=== PATIENT | female | born 1985 | race Caucasian/White ===

== ENCOUNTER 2020-08-26 08:33 | Emergency (ER) | payer OTHER, SELFPAY ==
--- NOTE | 2020-08-26 | XR_ITS ---
EXAMINATION: CR X-RAY HAND WRIST LEFT CLINICAL INFORMATION: Left hand and wrist pain status post fall. COMPARISON: None TECHNIQUE: 4 views of the left hand and wrist were obtained. FINDINGS: There is no acute fracture or dislocation. The carpal bones are normally aligned. The distal radius and ulna are intact. The joint spaces are unremarkable. The soft tissues are unremarkable. IMPRESSION: No acute fracture or significant degenerative changes.
[2020-08-26 09:33] VITALS: BP 121/64; PULSE 87; RESP 16; TEMP 36.5; O2SAT 100; BMI 23.3
--- NOTE | 2020-08-26 09:51 | ED.EXTPRO ---
HPI - Extremity Problem General Chief complaint: Extremity Injury, Upper Stated complaint: fell hurt left wrist Time Seen by Provider: 08/26/20 09:47 Source: patient Mode of arrival: ambulatory Limitations: no limitations History of Present Illness MD Complaint: extremity pain Onset (ago): minute(s) Pain Consistency: constant Location: left Quality: constant Radiation: none Relieving factors: nothing Exacerbating factors: nothing Associated symptoms: denies other symptoms Related Data Home Medications Medication Instructions Recorded Confirmed No Known Home Meds 08/26/20 08/26/20 Allergies Allergy/AdvReac Type Severity Reaction Status Date / Time No Known Allergies Allergy Unknown NOT Verified 08/26/20 09:01 APPLICABLE Review of Systems Review of Systems: Yes all other systems are reviewed and are negative Constitutional: Constitutional: Reports as per HPI, Denies chills and Denies fever(s) Eyes: Eyes: Denies change in vision ENT: Denies nasal congestion and Denies nasal discharge Cardiovascular: Cardiovascular: Denies acrocyanosis, Denies chest pain and Denies dyspnea Respiratory: Respiratory: Denies cough and Denies dyspnea Gastrointestinal: Gastrointestinal: Denies abdominal pain, Denies nausea and Denies vomiting Genitourinary: Genitourinary: Reports no additional female genitourinary complaints Musculoskeletal: Musculoskeletal: Reports arthralgias, Reports joint swelling, Reports limited range of motion, Denies muscle weakness, Denies numbness and Denies tingling Integumentary/Breasts: Skin/Breast: Denies rash Neurologic: Denies focal weakness, Denies numbness and Denies tingling Psychiatric: Psychiatric: Reports no additional psychiatric complaints [facility] Past Medical History Attestation statement: The following information was validated with the patient. Source: obtained from family Medical History delivery delivered Cholecystectomy planned No known health problems Social History Social History Alcohol intake: never Smoking Status: Current every day smoker Use of substances other than those prescribed or required for medical reasons: No Advance Directives: No Advance Directives Information Provided: Yes Physical Exam Vital Signs and I&O and Narrative: Vital Signs and I&O: Vital Signs Temp 97.7 F 08/26/20 09:33 Pulse 87 08/26/20 09:33 Resp 16 08/26/20 09:33 BP 121/64 08/26/20 09:33 Pulse Ox 100 08/26/20 09:33 Intake & Output 08/25/20 08/26/20 08/26/20 18:59 06:59 18:59 Weight 63.503 kg Body Mass Index 23.3 Const: General: healthy appearing, comfortable and no acute distress Orientation/consciousness: patient oriented x3 HENMT: Head: Yes normal to inspection Eyes: General: appearance normal, both eyes and all related structures Pupils: Equal, round and reactive pupils present Neck: Neck: Yes normal visual inspection Chest: Chest palpation & inspection: normal inspection of the chest Resp: Effort & Inspection: normal respiratory effort Auscultation: clear to auscultation bilaterally Cardio: Palpation: normal PMI Rate: regular rate Rhythm: regular rhythm Peripheral pulses: Peripheral pulses 2+ throughout GI: Inspection: Yes normal to inspection Palpation (GI): Soft to palpation and nontender Back/Spine/Pelvis: Thoracic/Lumbar Spine: thoracic and lumbar spine normal to inspection Skin: General skin exam: no rashes or lesions noted Neuro: General: patient oriented x3, Normal light touch and pain sensation and normal sensation to monofilament Cranial nerves: Yes Equal, round and reactive pupils present Gait exam (Neuro): Normal gait present Motor exam (neuro): 5/5 motor strength present throughout Sensory Exam: Normal double simultaneous stimulation for sensation Extrem: General: Yes normal to inspection Left upper extremity: normal to inspection, full ROM (pain with extension of the left wrist, no obvious swelling or deformity.), normal capillary refill and wrist (NV intact distally ); no edema and joint enlargement noted MDM - Extremity (Nontraumatic) MDM Narrative Medical decision making narrative: x-rays negative. Likely sprain. Placed in wrist splint by nursing. Reviewed worrisome signs/symptoms with the patient and when to return to ED. comfortable with discharge home. Imaging Data wrist x-ray: Attestation: I personally reviewed and interpreted this imaging study as follows: My impression: unremarkable. no acute fracture Radiologist's impression: EXAMINATION: CR X-RAY HAND WRIST LEFT CLINICAL INFORMATION: Left hand and wrist pain status post fall. COMPARISON: None TECHNIQUE: 4 views of the left hand and wrist were obtained. FINDINGS: There is no acute fracture or dislocation. The carpal bones are normally aligned. The distal radius and ulna are intact. The joint spaces are unremarkable. The soft tissues are unremarkable. IMPRESSION: No acute fracture or significant degenerative changes. Discharge Plan Discharge Clinical Impression: Sprain and strain of wrist Patient Disposition: Home, Self-Care Instructions: Wrist Sprain (ED) Additional Instructions: Use splint for comfort Ice to the area elevation Limit use of wrist Motrin or Tylenol for pain as needed Prescriptions: No Action No Known Home Meds RF: 0 Stand Alone Forms: Work/School Release Interventions: ED Discharge Assessment Last Done: 08/26/20 11:30 Discharge Date/Time: 08/26/20 11:31
--- NOTE | 2020-08-26 11:32 | PC.NURSE ---
velcro wrist splint applied to left wrist
== END 2020-08-26 11:31 | disposition home or self-care (01) ==
PROVIDERS: Emergency Provider Internal Medicine
DX: S63.502A Unspecified sprain of left wrist, initial encounter (principal); S66.912A Strain of unspecified muscle, fascia and tendon at wrist and hand level, left hand, initial encounter; M25.532 Pain in left wrist; W18.30XA Fall on same level, unspecified, initial encounter; Y93.01 Activity, walking, marching and hiking; Y92.9 Unspecified place or not applicable; F17.200 Nicotine dependence, unspecified, uncomplicated; Z71.6 Tobacco abuse counseling
CPT/HCPCS: 73110; 73130; 99283; 99284

== ENCOUNTER 2021-03-16 11:16 | Emergency (ER) | payer OTHER, SELFPAY ==
--- NOTE | 2021-03-16 | ECG_ITS ---
Test Reason : HP Blood Pressure : / mmHG Vent. Rate : 079 BPM Atrial Rate : 079 BPM P-R Int : 130 ms QRS Dur : 088 ms QT Int : 336 ms P-R-T Axes : 057 043 030 degrees QTc Int : 385 ms Sinus rhythm with occasional Premature ventricular complexes Otherwise normal ECG When compared with ECG of 15-SEP-2018 20:19, Premature ventricular complexes are now Present Referred By: Tom Lott Electronically Signed By:IAN LAND MD
--- NOTE | ~2021-03-16 | XR_ITS ---
EXAMINATION: XR CHEST CLINICAL INFORMATION: Palpitations COMPARISON: 09/15/2018 TECHNIQUE: Frontal view of the chest was obtained. FINDINGS: No significant abnormality is noted involving the heart, lungs, mediastinum, bony thorax or soft tissues. XR/XR chest 1V IMPRESSION: Unremarkable examination.
[2021-03-16 11:23] VITALS: BP 122/76; PULSE 80; RESP 18; TEMP 36.5; O2SAT 100; BMI 26.5
--- NOTE | 2021-03-16 12:11 | ED_ITS ---
HPI - Arrhythmia/Palpitations General Chief Complaint: Arrhythmia/Palpitations Stated Complaint: palpitations Time Seen by Provider: 03/16/21 12:08 Source: patient Mode of arrival: ambulatory Limitations: no limitations History of Present Illness HPI narrative: 35-year-old female walked into the emergency department for evaluation of palpitation. This is a 35-year-old female who experienced about 10 minutes time of palpitation while she was at work, patient declined chest pain or dizziness, symptoms lasted for about 10 minutes, patient drinks 3 cups of caffeinated coffee daily and she smoke cigarettes which might trigger her symptoms, no other associated symptoms, patient had similar presentation in the past, patient had history of Holter monitor placed few years ago and reportedly nothing major was detected. Related Data Home Medications Medication Instructions Recorded Confirmed No Known Home Meds 08/26/20 08/26/20 Allergies Allergy/AdvReac Type Severity Reaction Status Date / Time No Known Allergies Allergy Unknown NOT Verified 03/16/21 11:27 APPLICABLE Review of Systems Review of Systems: All other systems are reviewed and are negative Constitutional: Reports as per HPI and Reports no additional constitutional complaints Eyes: Reports as per HPI and Reports no additional eye complaints Reports system reviewed and no additional complaints, except as documented Cardiovascular: Reports as per HPI and Reports no additional cardiovascular complaints Respiratory: Reports as per HPI and Reports no additional respiratory complaints Gastrointestinal: Reports as per HPI and Reports no additional gastrointestinal complaints Genitourinary: Reports no additional female genitourinary complaints Musculoskeletal: Reports no additional musculoskeletal complaints Skin/Breast: Reports system reviewed and no additional complaints, except as docu Psychiatric: Reports no additional psychiatric complaints Endocrine: Reports no additional endocrine complaints Hematologic/Lymphatic: Reports no additional hematologic/lymphatic complaints Allergic/Immunologic: Reports no additional allergic/immunologic complaints Reports system reviewed and no additional complaints, except as documented and Reports Abnormal speech present [facility] Past Medical History Medical History delivery delivered Cholecystectomy planned No known health problems Social History Social History Alcohol intake: never Smoking Status: Current every day smoker Use of substances other than those prescribed or required for medical reasons: No Advance Directives: No Advance Directives Information Provided: No Physical Exam Vital Signs: Vital Signs: Last Vital Signs Temp 97.7 F 03/16/21 11:23 Pulse 81 03/16/21 12:15 Resp 18 03/16/21 12:15 BP 110/77 03/16/21 12:15 Pulse Ox 100 03/16/21 12:15 Body Mass Index 26.5 Vital signs have been reviewed as appeared to be correct. Blood pressure normal. Heart rate normal. Respiration rate normal. Temperature normal. Oxygen saturation normal. Appearance: Alert. Oriented X3. No acute distress. Anxious. Head: Normal external exam. Normocephalic. Atraumatic. No Morales signs noted. No raccoon eyes noted Eyes: PERRLA. EOMI. Conjunctiva and sclera normal. Eyelids normal. ENT: TM's Normal. Pharynx normal. Uvula midline. Moist mucous membranes. No trismus noted. No drooling noted. No muffled voice noted. Neck: Normal inspection. Neck supple. FROM. No adenopathy. Thyroid Normal. No meningeal signs. No neck mass noted. CVS: Normal heart rate and rhythm. Heart sound normal. No murmurs noted. Pulses normal throughout. Respiratory: No respiratory distress. Painless inspiration. Breath sounds normal. No wheezes/rales/rhonchi noted. Chest nontender. No accessory muscle usage noted or decreased air movement noted. Abdomen: Soft and nontender. Bowel sounds normal in all 4 quadrants. No distention noted. No organomegaly noted. No visible injury noted. Back: No CVA tenderness. Full range of motion noted. Skin: Skin warm and dry. Normal skin color. Normal skin turgor. No rashes/lesions/lacerations noted. Extremities: No lower extremity edema. Extremities exhibit normal range of motion. Extremities nontender. Neuro: Oriented X 3. No motor deficit. No sensory deficit. Reflexes normal. Course Course Course Narrative: Assessment and plan. 35-year-old female history of anxiety, drink multiple caffeinated coffee a day presented with palpitation, patient had unremarkable workup including TSH/electrolytes/cardiac enzymes, patient had unremarkable EKG and chest x-ray, physical exam more consistent with anxiety related palpitation. Patient was reassured instructed to stay away from caffeinated drinks and smoking cigarettes. MDM - Arrhythmia/Palpitations Lab Data Attestation: I reviewed the patient's lab results. Result diagrams: 03/16/21 12:21 04/25/21 12:21 Labs: Lab Results 03/16/21 03/16/21 03/16/21 Range/Units 12:21 12:21 12:21 WBC 8.5 (4.8-10.8) X10*3/uL RBC 4.19 L (4.20-5.50) X10*6/uL Hgb 13.0 (12.0-16.0) g/dl Hct 40.0 (37-47) % MCV 95.5 (80-98) fL MCH 31.0 (27.0-33.0) pg MCHC 32.5 (31.0-35.0) g/dl RDW 13.1 (11.0-16.0) % Plt Count 215 (160-400) X10*3/uL MPV 10.7 (9.4-12.3) fL Immature Gran % (Auto) 0.4 (0.0-0.4) % Neut % (Auto) 68.8 (45-73) % Lymph % (Auto) 22.4 (20-40) % [place] % (Auto) 7.3 (2-11) % Eos % (Auto) 0.6 (0-4) % Baso % (Auto) 0.5 (0-2) % Lymph # (Auto) 1.9 (1.2-4.9) X10*3/uL [place] # (Auto) 0.6 (0.1-1.2) X10*3/uL Eos # (Auto) 0.1 (0.0-0.4) X10*3/uL Baso # (Auto) 0.0 (0.0-0.2) X10*3/uL Abs Immat Gran (auto) 0.03 (0.00-0.03) X10*3/uL Absolute Neuts (auto) 5.8 (2.0-8.3) X10*3/uL Absolute Nucleated RBC 0.000 (0.0-0.012) X10*3/uL Nucleated RBC % (auto) 0.0 (0.0-0.2) /100WBC Sodium 139 (135-145) mmol/L Potassium 3.9 (3.3-5.1) mmol/L Chloride 104 (96-108) mmol/L Carbon Dioxide 25 (22-29) mmol/L Anion Gap 14 (12-20) BUN 13 (9-16) mg/dL Creatinine 0.77 (0.5-1.4) mg/dL Estim Creat Clear Calc 96.2 Estimated GFR > 60 Random Glucose 91 (60-115) mg/dL Calcium 9.4 (8.4-10.2) mg/dL Magnesium 1.8 (1.6-2.6) mg/dL Troponin I High Sens < 3.5 (<3.5-17.0) ng/L B-Natriuretic Peptide < 10 (<100) pg/mL Lipase 11 (8-78) U/L TSH 1.40 (0.32-4.0) uIU/mL Urine Color Urine Appearance Urine pH (5.0-8.0) Ur Specific [place] (1.005-1.025) Urine Protein (NEG-TRACE) MG/DL Urine Glucose (UA) (NEG) MG/DL Urine Ketones (NEG) MG/DL Urine Blood (NEG) Urine Nitrite (NEG) Ur Leukocyte Esterase (NEG) Urine RBC (0) /HPF Urine WBC (0-4) /HPF Ur Squamous Epith Cells /LPF Urine Bacteria /LPF Urine Mucus /LPF 04// Range/Units 12:21 WBC (4.8-10.8) X10*3/uL RBC (4.20-5.50) X10*6/uL Hgb (12.0-16.0) g/dl Hct (37-47) % MCV (80-98) fL MCH (27.0-33.0) pg MCHC (31.0-35.0) g/dl RDW (11.0-16.0) % Plt Count (160-400) X10*3/uL MPV (9.4-12.3) fL Immature Gran % (Auto) (0.0-0.4) % Neut % (Auto) (45-73) % Lymph % (Auto) (20-40) % [place] % (Auto) (2-11) % Eos % (Auto) (0-4) % Baso % (Auto) (0-2) % Lymph # (Auto) (1.2-4.9) X10*3/uL [place] # (Auto) (0.1-1.2) X10*3/uL Eos # (Auto) (0.0-0.4) X10*3/uL Baso # (Auto) (0.0-0.2) X10*3/uL Abs Immat Gran (auto) (0.00-0.03) X10*3/uL Absolute Neuts (auto) (2.0-8.3) X10*3/uL Absolute Nucleated RBC (0.0-0.012) X10*3/uL Nucleated RBC % (auto) (0.0-0.2) /100WBC Sodium (135-145) mmol/L Potassium (3.3-5.1) mmol/L Chloride (96-108) mmol/L Carbon Dioxide (22-29) mmol/L Anion Gap (12-20) BUN (9-16) mg/dL Creatinine (0.5-1.4) mg/dL Estim Creat Clear Calc Estimated GFR Random Glucose (60-115) mg/dL Calcium (8.4-10.2) mg/dL Magnesium (1.6-2.6) mg/dL Troponin I High Sens (<3.5-17.0) ng/L B-Natriuretic Peptide (<100) pg/mL Lipase (8-78) U/L TSH (0.32-4.0) uIU/mL Urine Color YELLOW Urine Appearance CLOUDY Urine pH 5.5 (5.0-8.0) Ur Specific [place] >= 1.030 H (1.005-1.025) Urine Protein NEG (NEG-TRACE) MG/DL Urine Glucose (UA) NEG (NEG) MG/DL Urine Ketones NEG (NEG) MG/DL Urine Blood 1+ H (NEG) Urine Nitrite NEG (NEG) Ur Leukocyte Esterase NEG (NEG) Urine RBC 1-4 (0) /HPF Urine WBC 0-2 (0-4) /HPF Ur Squamous Epith Cells 2+ /LPF Urine Bacteria NONE /LPF Urine Mucus TRACE /LPF Imaging Data Chest x-ray: Radiologist's impression: Unremarkable examination. ECG Data Interpretation: Normal sinus rhythm at 79 beats per minutes, with occasional ventricular complex, normal intervals, normal axis deviation, no ST-T changes. Discharge Plan Discharge Clinical Impression: Anxiety, Palpitations Patient Disposition: Home, Self-Care Instructions: Anxiety (ED) Prescriptions: No Action No Known Home Meds RF: 0 Referrals: Physician,None [Primary Care Provider] - 2 days Stand Alone Forms: Work/School Release
[2021-03-16 12:15] VITALS: BP 110/77; PULSE 81; RESP 18; O2SAT 100
[2021-03-16 12:27] LABS: Glucose Urine UA NEG (NEG); Leukocyte Esterase Urine NEG (NEG); MANUAL DIFF FLAG NO; Nitrite Urine NEG (NEG); PH 5.5 (5.0-8.0); Specific Gravity - Urine >= 1.030 (1.005-1.025); Urine Blood 1+ (NEG); Urine Ketones NEG (NEG); Urine Protein NEG (NEG-TRACE)
[2021-03-16 12:28] LABS: Appearance Urine CLOUDY; Basophils Percent Auto 0.5 % (0-2); Color Urine YELLOW; Eosinophils Absolute Auto 0.1 X10*3/uL (0.0-0.4); Eosinophils Percent Auto 0.6 % (0-4); Imm Gran Abs Auto 0.03 X10*3/uL (0.00-0.03); Imm Gran Pct Auto 0.4 % (0.0-0.4); Lymphocytes Absolute Auto 1.9 X10*3/uL (1.2-4.9); Lymphocytes Percent Auto 22.4 % (20-40); Mean Corpuscular HGB Conc 32.5 g/dl (31.0-35.0); Mean Corpuscular Volume 95.5 fL (80-98); Mean Platelet Volume 10.7 fL (9.4-12.3); Monocytes Absolute Auto 0.6 X10*3/uL (0.1-1.2); Monocytes Percent Auto 7.3 % (2-11); Neutrophils Absolute Auto 5.8 X10*3/uL (2.0-8.3); Neutrophils Percent Auto 68.8 % (45-73); Platelet Count 215 X10*3/uL (160-400); Red Blood Count 4.19 X10*6/uL (4.20-5.50); Red Cell Distribution Width 13.1 % (11.0-16.0); White Blood Count 8.5 X10*3/uL (4.8-10.8)
[2021-03-16 12:38] LABS: Mucus Urine TRACE /LPF; Squamous Epithelial Cell Urine 2+ /LPF; WBC Urine 0-2 /HPF (0-4)
[2021-03-16 12:59] LABS: Anion Gap 14 (12-20); Blood Urea Nitrogen 13 mg/dL (9-16); Calcium 9.4 mg/dL (8.4-10.2); Carbon Dioxide 25 mmol/L (22-29); Chloride 104 mmol/L (96-108); Creatinine Clr Calc Pharmacy 96.2; Estimated Glomerular Filt Rate > 60; Glucose Random 91 mg/dL (60-115); Lipase 11 U/L (8-78); Magnesium 1.8 mg/dL (1.6-2.6); Potassium 3.9 mmol/L (3.3-5.1); Sodium 139 mmol/L (135-145)
[2021-03-16] MEDS: LORazepam 1 MG TABLET PO (13:02)
[2021-03-16 13:06] LABS: B Type Natriuretic Peptide < 10 pg/mL (<100); Troponin-I High Sensitivity < 3.5 ng/L (<3.5-17.0)
[2021-03-16 13:53] VITALS: BP 102/61; PULSE 82; RESP 18; O2SAT 100
== END 2021-03-16 13:58 | disposition home or self-care (01) ==
PROVIDERS: Emergency Provider Emergency Medicine
DX: F41.9 Anxiety disorder, unspecified (principal); R00.2 Palpitations; F17.200 Nicotine dependence, unspecified, uncomplicated
CPT/HCPCS: 36415; 71045; 80048; 81001; 83690; 83735; 83880; 84443; 84484; 85025; 93005; 99283; 99285

== ENCOUNTER 2021-03-19 06:20 | Emergency (ER) | payer OTHER, SELFPAY ==
--- NOTE | 2021-03-19 | ECG_ITS ---
Test Reason : PALPPITION Blood Pressure : / mmHG Vent. Rate : 081 BPM Atrial Rate : 081 BPM P-R Int : 130 ms QRS Dur : 090 ms QT Int : 342 ms P-R-T Axes : 081 063 044 degrees QTc Int : 397 ms Normal sinus rhythm Normal ECG When compared with ECG of 16-MAR-2021 11:36, Premature ventricular complexes are no longer Present Referred By: Redd Duque Electronically Signed By:IAN LAND MD
[2021-03-19 06:42] VITALS: BP 124/71; PULSE 91; RESP 20; TEMP -17.7; TEMP 0; O2SAT 100; BMI 26.5
--- NOTE | 2021-03-19 07:09 | ED_ITS ---
HPI - General Adult General Chief complaint: Arrhythmia/Palpitations Stated complaint: Palpitations Time Seen by Provider: 03/19/21 06:47 Source: patient Mode of arrival: ambulatory Limitations: no limitations History of Present Illness HPI narrative: 35-year-old female who presents emergency department for evaluation of palpitations. The patient states that she was here in the emergency department on Wednesday ( 4 days prior to evaluation). She describes the sensation as a skipped be with a strong beat following the pause. She states she gets these sensations multiple times an hour. She states that they make her feel very anxious. She denies associated symptoms such as chest pain, lightheadedness, dizziness, diaphoresis, nausea, vomiting or weakness associated with the palpitations. The patient states that she went to [facility] Emergency Department on Wednesday ( 3 days prior to evaluation) with similar complaint had a negative workup except for slight elevation of potassium of 5.6. She states that the elevated potassium is made her very anxious as well. She does have an anxiety disorder but does not take any medications currently for this condition. The patient states that she did have a COVID-19 infection. She states that she completed her COVID-19 vaccination in got her 2nd vaccination in January of 2021. Related Data Previous Rx's Medication Instructions Recorded lorazepam [Ativan] 0.5 mg PO TID PRN #10 tab 03/19/21 Allergies Allergy/AdvReac Type Severity Reaction Status Date / Time No Known Allergies Allergy Unknown NOT Verified 03/16/21 11:27 APPLICABLE Review of Systems Review of Systems: Yes all other systems are reviewed and are negative [facility] Past Medical History [facility] Narrative: past medical history severe anxiety, cholecystectomy 5 years prior. The patient smokes 1 pack of cigarettes per day x5 years. She rarely drinks alcohol. She denies drug use. Medical History delivery delivered Cholecystectomy planned No known health problems Social History Social History Alcohol intake: never Smoking Status: Current every day smoker Advance Directives: No Physical Exam Vital Signs: Vital Signs: Last Vital Signs Temp 0 F L 03/19/21 06:42 Pulse 91 03/19/21 06:42 Resp 20 03/19/21 06:42 BP 124/71 03/19/21 06:42 Pulse Ox 100 03/19/21 06:42 Body Mass Index 26.5 Const: General: cooperative and healthy appearing Orientation/consciousness: oriented to person and oriented to place Limit ations: no limitations HENMT: Head: Yes normal to inspection, Yes normocephalic and Yes atraumatic Ears: external ears normal General nose exam: Normal external nose present Face and sinus: Yes normal facial exam Mouth: Normal oral and palatal mucosa present Throat: Yes posterior oropharynx normal Eyes: Periorbital: periorbital findings normal Eyelids: Yes eyelids normal Conjunctivae: conjunctivae normal Sclerae: sclerae normal Corneas: corneas normal Pupils: Equal, round and reactive pupils present Direct Ophthalmoscopy: normal light reflex Neck: Neck: Yes full ROM, Yes no lymphadenopathy, Yes no meningeal signs, Yes trachea midline and Yes supple Chest: Chest palpation & inspection: normal inspection of the chest and normal palpation of entire chest wall Resp: Effort & Inspection: normal respiratory effort and able to speak in complete sentences Auscultation: clear to auscultation bilaterally Cardio: Rate: regular rate Rhythm: regular rhythm and other ( Occasional irregular) Heart sounds: S1 normal heart sound present, S2 normal heart sound present and no murmurs GI: Inspection: Yes normal to inspection Palpation (GI): Soft to palpation, nontender, no guarding, not rigid and No hepatosplenomegaly present : General: Yes no CVA tenderness Back/Spine/Pelvis: Back: no CVA tenderness Cervical Spine: normal cervical lordosis Thoracic/Lumbar Spine: thoracic and lumbar spine normal to inspection Skin: Lesions: no lesions Rashes: no rashes Wounds: no wounds Neuro: General: oriented to person, oriented to place and no meningeal signs Cranial nerves: Yes CN's II-XII intact bilaterally and Yes Equal, round and reactive pupils present Cognition (Neuro): normal cognition Motor exam (neuro): 5/5 motor strength present throughout Extrem: General: Yes normal to inspection and Yes full ROM Psych: Appearance: well kempt Mental Status: mental status grossly normal Speech and movement: Normal speech and movement present Affect: normal affect Attitude: cooperative Thought process: Normal thought process present Thought content: Normal thought content present Course Course Course Narrative: 35-year-old female who presents emergency department for evaluation of palpitations. Her description of her palpitations are consistent with PACs versus PVCs. She has no concerning associated symptoms. She does have a history of anxiety. While I was examining the patient, the patient did have an irregular beat and this correlated with a PVC on the monitor. This is the patient's 3rd ER visit and I do not think that she needs further laboratory evaluation. Her 12 EKG was unremarkable. She has no significant cardiac risk factors. The patient's symptoms are triggering her anxiety and she was given Ativan 0.5 mg orally. She was given a prescription for Ativan 0.5 mg 3 times a day as needed for anxiety. The patient was advised to follow-up with PCP to further discuss treatment of her anxiety. She was also given a work note take 2 days off from work. Medical Decision Making ECG Data Interpretation: 0714: Normal sinus rhythm with a rate of 81, normal PA, QRS and QTC intervals, no ST segment elevation, no ST segment depression, no Q- waves, T-waves are normal. This is a normal EKG. Discharge Plan Discharge Clinical Impression: Palpitations, Contraction, premature ventricular, Anxiety Patient Disposition: Home, Self-Care Instructions: Heart Palpitations (ED) Additional Instructions: While you were here in the emergency department and while I was listening to your heart, you had a skipped beat. On the monitor you had a premature ventricular contraction ( PVC). This is normal and this is the cause of your skipped beats and palpitations. These palpitations are treating her anxiety in your anxiety or cause you to have more PVCs. Avoid caffeine. Take Ativan 0.5 mg pills, 1 pill every 6 hours as needed for anxiety. This medication will make you sleepy, do not drive or work while taking this medication. This medication can be addicting, if your concerned about addiction do not get this medication filled or can ask the pharmacist for less pills then prescribed. You need to follow-up with Your doctor to discuss getting further treatment of your anxiety. Follow-up with your doctor in 2 days. Please return to the emergency department if your symptoms get worse or if you develop any symptoms that are concerning to you. Prescriptions: New lorazepam [Ativan] 0.5 mg tablet 0.5 mg PO TID PRN (Reason: anxiety) Qty: 10 RF: 0 Stand Alone Forms: Work/School Release
[2021-03-19] MEDS: LORazepam 0.5 MG TABLET PO (07:42)
== END 2021-03-19 07:44 | disposition home or self-care (01) ==
PROVIDERS: Emergency Provider Emergency Medicine Emergency Medical Services
DX: R00.2 Palpitations (principal); I49.3 Ventricular premature depolarization; F41.9 Anxiety disorder, unspecified; F17.200 Nicotine dependence, unspecified, uncomplicated; Z86.16 Personal history of COVID-19; Z79.899 Other long term (current) drug therapy
CPT/HCPCS: 93005; 99283

== ENCOUNTER 2021-08-16 15:12 | Emergency (ER) | payer OTHER, SELFPAY ==
--- NOTE | ~2021-08-16 | XR_ITS ---
EXAMINATION: XR SCAPULA, LEFT CLINICAL INFORMATION: Status post fall onto concrete. Evaluate for fracture. COMPARISON: Chest radiograph dated from 03/16/2021. TECHNIQUE: AP and scapular Y views of the left scapula. FINDINGS: The bones and soft tissues are normal. No scapular fracture. Glenohumeral and acromioclavicular alignment is normal. XR/XR scapula LT IMPRESSION: Normal left scapula.
--- NOTE | ~2021-08-16 | CT_ITS ---
EXAMINATION: CT HEAD W/O IV CONTRAST CT CERVICAL SPINE W/O IV CONTRAST CLINICAL INFORMATION: Head injury with headache. Neck pain after trauma. COMPARISON: None TECHNIQUE: Head - Contiguous axial imaging of the head was performed from the skull base to the vertex without the administration of intravenous contrast, and axial images are reconstructed at 2 mm and 5 mm slice thickness. Cervical spine - A volumetric, helical CT acquisition of the cervical spine was obtained without contrast; in addition to the standard set of axial images, multiplanar reformatted images were provided in the coronal and sagittal imaging planes. This CT examination was performed using dose optimization techniques as appropriate, variously including the following: *Automated exposure control *Adjustment of mA and/or kV according to patient size (this includes techniques or standardized protocols for targeted exams where dose is matched to indication/reason for exam; i.e. extremities or head) *Use of iterative reconstruction technique DLP: 858 mGy-cm (total) FINDINGS: HEAD: Brain parenchyma has normal attenuation. No evidence of intracranial hemorrhage, major vascular territory infarction, focal mass effect or midline shift. Garcia to white matter differentiation is preserved. The ventricles have normal size and configuration. No extra-axial fluid collections. The calvarium is intact and the visualized paranasal sinuses, mastoid air cells and middle ear cavities are clear. The temporomandibular joints are unremarkable. The orbits and globes are intact. CERVICAL SPINE: No acute abnormalities. The craniocervical junction is normal. The occipital condyles, dens and atlantodental articulation are intact. The vertebral body heights and alignment are maintained. No fractures in the anterior or posterior elements. No prevertebral soft tissue swelling. The disc spaces are preserved. The facet joints are unremarkable. There is mild right-sided uncovertebral joint hypertrophy at C2-C3. No stenosis of the central spinal canal. No spinal hematoma or focal fluid collection in the visualized neck. No acute abnormalities in the partially visualized lung apices. No pneumothorax. Thyroid gland is normal. CT/CT cervical spine wo con IMPRESSION: * No acute intracranial pathology. * No fracture or malalignment in the cervical spine.
[2021-08-16 15:31] VITALS: BP 134/72; PULSE 84; RESP 18; TEMP 36.6; O2SAT 100; BMI 26.6
--- NOTE | 2021-08-16 17:36 | ED_ITS ---
HPI - General Adult General Chief complaint: General Medical Stated complaint: Head injury/Work inj Time Seen by Provider: 08/16/21 17:24 Source: patient Mode of arrival: ambulatory Limitations: no limitations History of Present Illness HPI narrative: 36-year-old female who works as a [employer] the [employer], was going down concrete stairs and slipped on some water and fell and hit the back of her head She had no loss of consciousness, but now has a headache that is about as 6/10 in the back of her head. The headache issue sore and constant. She also has pain in her left upper back by her shoulder blade. No nausea or vomiting, no blurry vision, no neck pain, no gait disturbance. Related Data Previous Rx's Medication Instructions Recorded lorazepam 0.5 mg tablet (Ativan) 0.5 mg PO TID PRN #10 tab 03/19/21 Allergies Allergy/AdvReac Type Severity Reaction Status Date / Time No Known Allergies Allergy Unknown NOT Verified 08/16/21 15:30 APPLICABLE Review of Systems Constitutional: Constitutional: Denies body ache(s), Denies chills, Denies fatigue, Denies fever(s), Reports headache(s), Denies malaise and Denies weakness Eyes: Eyes: Denies blurry vision, Denies change in vision and Denies diplopia ENT: Denies vertigo, Denies dizziness, Denies otalgia, Reports headache(s), Denies mouth pain, Denies post nasal drip, Denies sinus pain, Denies sinus pressure, Denies sore throat and Denies throat swelling Cardiovascular: Cardiovascular: Denies chest pain, Denies syncope, Denies leg edema, Denies lightheadedness, Denies Loss of Consciousness, Denies palpitations and Denies dyspnea Respiratory: Respiratory: Denies chest congestion, Denies cough and Denies dyspnea Gastrointestinal: Gastrointestinal: Denies abdominal pain, Denies hematoch ezia, Denies constipation, Denies diarrhea and Denies vomiting Musculoskeletal: Musculoskeletal: Reports back pain Integumentary/Breasts: Skin/Breast: Denies erythema and Denies wounds Neurologic: Denies Abnormal speech present, Denies confusion, Denies vertigo, Denies dizziness, Denies syncope, Reports headache(s), Denies Sensory deficit (Neuro) and Denies weakness Psychiatric: Psychiatric: Denies anxiety, Denies confusion and Denies depression Endocrine: Endocrine: Denies fatigue and Denies palpitations Allergic/Immunologic: Allergic/Immunologic: Denies throat swelling PMFSH Past Medical History Medical History Anxiety delivery delivered Cholecystectomy planned Heart palpitations Social History Social History Alcohol intake: never Advance Directives: No Advance Directives Information Provided: No Patient : No Physical Exam Vital Signs: Vital Signs: Last Vital Signs Temp 97.9 F 08/16/21 15:31 Pulse 84 08/16/21 15:31 Resp 18 08/16/21 15:31 BP 134/72 08/16/21 15:31 Pulse Ox 100 08/16/21 15:31 Body Mass Index 26.6 Const: General: No confusion Nutritional Appearance: well nourished Orientation/consciousness: patient oriented x3 and No confusion Limitations: no limitations HENMT: Head: No Morales's sign, Yes contusion (left occiput) and No raccoon eyes Ears: hearing grossly normal bilaterally, external ears normal, TM's normal bilaterally and EAC's normal General nose exam: Normal external nose present Face and sinus: Yes normal facial exam and Yes sinuses nontender Mouth: Normal oral and palatal mucosa present Throat: Yes posterior oropharynx normal Eyes: Conjunctivae: conjunctivae normal Pupils: Equal, round and reactive pupils present EOM: EOMs intact bilaterally and No Nystagmus present Neck: Neck: Yes full ROM, Yes no lymphadenopathy and Yes supple Resp: Effort & Inspection: normal respiratory effort and able to speak in complete sentences Auscultation: clear to auscultation bilaterally, no crackles, no rales, no rhonchi and no wheezes Cardio: Rate: regular rate Rhythm: regular rhythm Heart sounds: S1 normal heart sound present and S2 normal heart sound present GI: Inspection: Yes normal to inspection Palpation (GI): Soft to palpation, nontender, no guarding and not rigid Percussion: Yes normal to percussion Auscultation: normal bowel sounds Skin: General skin exam: no rashes or lesions noted Neuro: General: patient oriented x3, gait normal and No confusion Cranial nerves: Yes CN's II-XII intact bilaterally, Yes Facial sensation intact/muscles of mastication intact, Yes Equal, round and reactive pupils present, Yes Bilaterally intact EOM present, Yes Nystagmus not present, Yes Normal facial strength present, Yes Midline tongue present, Yes Ability to bilaterally rotate head present, Yes Ability to bilaterally elevate shoulders present and No Nystagmus present Cognition (Neuro): normal cognition Speech: No Abnormal speech present Gait exam (Neuro): Normal gait present Motor exam (neuro): 5/5 motor strength present throughout Sensory Exam: No Sensory deficit (Neuro) Deep tendon reflexes (DTR's): Right patellar reflex intensity grade: 1+ and Left patellar reflex intensity grade: 1+ Coordination: [id number] test normal, [id number] test normal and tandem gait normal Romberg Test: Negative Pupils: Normal pupillary reactivity/response: bilateral Extrem: General: Yes normal to inspection and Yes full ROM Psych: Appearance: grossly normal Affect: normal affect Attitude: cooperative Thought process: Normal thought process present Course Course Course Narrative: 36-year-old female who had an head injury at work presents for headache and upper left back pain. On exam, patient has no C spine or thoracic or lumbar vertebral tenderness, patient has a benign neurological exam. Patient is point tender in her left occiput put, tender over her scapula. Will get head and C-spine CT, will get scapular x-ray. Reevaluation(s) Reevaluation #1: Scapular x-ray is normal. CT IMPRESSION: *? No acute intracranial pathology. *? No fracture or malalignment in the cervical spine. Counseled patient that she has a concussion, and to return to work on Wednesday. Gave concussion return precautions ? Medical Decision Making Lab Data Labs: Lab Results 08/16/21 Range/Units 18:00 Urine Test NEGATIVE (NEGATIVE) Discharge Plan Discharge Clinical Impression: Concussion Qualifiers: Encounter type: initial encounter Loss of consciousness presence/duration: without LOC Qualified Code(s): S06.0X0A - Concussion without loss of consciousness, initial encounter Patient Disposition: Home, Self-Care Instructions: Concussion (ED) Additional Instructions: Please return to the emergency room revealed vomiting, blurry vision, sudden severe headache, or trouble walking. No that you will be tired for the next few days, get plenty of naps. Try to take it easy for the next few days. You can apply ice to the back of your head, and takes Tylenol. Please return to emergency room for any new or concerning symptoms. Prescriptions: No Action lorazepam [Ativan] 0.5 mg tablet 0.5 mg PO TID PRN (Reason: anxiety) Qty: 10 RF: 0 Stand Alone Forms: Work/School Release
[2021-08-16] MEDS: Acetaminophen 325 MG TABLET 975 MG PO (18:06)
[2021-08-16 18:16] LABS: UPreg QC Valid YES; Urine Pregnancy NEGATIVE (NEGATIVE)
== END 2021-08-16 19:27 | disposition home or self-care (01) ==
PROVIDERS: Physician Assistant; Emergency Provider Internal Medicine
DX: S06.0X0A Concussion without loss of consciousness, initial encounter (principal); R51.9 Headache, unspecified; M54.5 Low back pain; M54.2 Cervicalgia; W10.9XXA Fall (on) (from) unspecified stairs and steps, initial encounter; Y93.9 Activity, unspecified; Y92.9 Unspecified place or not applicable; Y99.9 Unspecified external cause status; Z79.899 Other long term (current) drug therapy
CPT/HCPCS: 70450; 72125; 73010; 81025; 99284

== ENCOUNTER 2022-01-02 09:35 | Emergency (ER) | payer OTHER, SELFPAY ==
--- NOTE | 2022-01-02 | ECG_ITS ---
Test Reason : chest pain Blood Pressure : / mmHG Vent. Rate : 073 BPM Atrial Rate : 073 BPM P-R Int : 142 ms QRS Dur : 076 ms QT Int : 366 ms P-R-T Axes : 071 048 030 degrees QTc Int : 403 ms Normal sinus rhythm Normal ECG When compared with ECG of 19-MAR-2021 07:14, No significant change was found Referred By: Generic ED Physician Electronically Signed By:Kuldeep Cheung
[2022-01-02 09:41] VITALS: BP 132/58; PULSE 80; RESP 18; TEMP 36.6; O2SAT 100; BMI 25.0
--- NOTE | 2022-01-02 09:53 | ED.GENADULT ---
HPI - General Adult General Chief complaint: General Medical Stated complaint: chest pain Time Seen by Provider: 01/02/22 09:53 Source: patient Mode of arrival: ambulatory Limitations: no limitations History of Present Illness HPI narrative: 36-year-old female with history of heavy periods and breast pain during her periods presents to the ER with bilateral breast pain and tenderness. She states that similar to her usual breast pain during her menses and she is on day 4 of her menstrual cycle right now. She is status post tubal ligation and denies any chance of . She states this is like her usual breast pain except usually by day for her breast pain is usually resolved. She denies any redness, swelling, firmness, nipple discharge, fevers or chills. She states she feels fine otherwise. She is ?a worry wart? and would like to make sure nothing is wrong. She states she has a history of fibrous breasts and had them ultrasound in the past. She has no early family history of breast cancer, grandma had breast cancer in her late 80s. complaint: Breast tenderness and pain Onset (ago): day(s) Location: chest Radiation: non-radiation Severity: mild Quality: aching Pain Consistency: constant Relieving factors: none Exacerbating factors: none Associated symptoms: denies other symptoms Treatments prior to arrival: none Related Data Previous Rx's Medication Instructions Recorded lorazepam 0.5 mg tablet (Ativan) 0.5 mg PO TID PRN #10 tab 03/19/21 Allergies Allergy/AdvReac Type Severity Reaction Status Date / Time No Known Allergies Allergy Unknown NOT Verified 08/16/21 15:30 APPLICABLE Review of Systems Review of Systems: Constitutional: No Fever, No Chills Cardiovascular: No Chest Pain, No SOB Respiratory: No Cough, No Sputum Gastrointestinal: No Nausea, No Vomiting Genitourinary: No Dysuria, No Urinary Frequency, No Hematuria, +vaginal bleeding Musculoskeletal: No joint pain, +Myalgias Skin: No Skin Lesions, No rash Psych: + Anxiety/Panic Heme/Lymph: No Bruising, No Lymphadenopathy PMFSH Past Medical History Medical History Anxiety delivery delivered Cholecystectomy planned Heart palpitations Social History Social History Alcohol intake: never Advance Directives: No Advance Directives Information Provided: No Patient : No Physical Exam Vital Signs: Vital Signs: Last Vital Signs Temp 98 F 01/02/22 09:41 Pulse 80 01/02/22 09:41 Resp 18 01/02/22 09:41 BP 132/58 L 01/02/22 09:41 Pulse Ox 100 01/02/22 09:41 BMI result Body Mass Index 25.0 Appearance: Alert. Oriented X3. No acute distress. HEENT: normal external inspection Neck: Normal inspection. Neck supple. CVS: Normal heart rate and rhythm. Pulses normal. Respiratory: No respiratory distress. Breath sounds normal. Chset: Normal inspection of bilateral breasts, no skin changes, minimal tenderness without palpable mass or fimness. no axillar LAD, no nipple discharge, no erythema or warmth Skin: Skin warm and dry. Normal skin color. Normal skin turgor. No rashes. Extremities: normal inspection x4, normal ROM Neuro: Oriented X 3. Nonfocal, anxious Course Course Course Narrative: 36-year-old female presenting to the ER with bilateral breast tenderness and pain in the setting of her menstrual cycle. This is a normal symptom for her but is lasting 1 extra day than usual. She has no signs or symptoms of infection and her exam is completely benign. She was reassured that this is a normal symptom of menstrual cycle and treatment of supportive care-warm compresses and NSAIDs. She does not have a OBGYN and has not had an annual exam in a very long time. Will refer to OBGYN here for routine care. She was reassured and counseled. Stable for discharge home. Discharge Plan Discharge Clinical Impression: Painful breasts Patient Disposition: Home, Self-Care Instructions: Menorrhagia (ED) Additional Instructions: Breast pain and tenderness is very common at various points during your menstual cycle due to hormonal changes. 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
== END 2022-01-02 10:11 | disposition home or self-care (01) ==
PROVIDERS: Emergency Provider Emergency Medicine Emergency Medical Services
DX: N64.4 Mastodynia (principal); F41.9 Anxiety disorder, unspecified
CPT/HCPCS: 93005; 99283

== ENCOUNTER 2022-01-15 07:15 | Emergency (ER) | payer OTHER, SELFPAY ==
[2022-01-15 07:26] VITALS: BP 159/71; PULSE 85; RESP 17; TEMP 36.3; O2SAT 100; BMI 25.0
--- NOTE | 2022-01-15 07:31 | ECG_ITS ---
Test Reason : BREAST PAIN Blood Pressure : / mmHG Vent. Rate : 100 BPM Atrial Rate : 100 BPM P-R Int : 128 ms QRS Dur : 078 ms QT Int : 330 ms P-R-T Axes : 067 043 022 degrees QTc Int : 425 ms Normal sinus rhythm Normal ECG When compared with ECG of 02-JAN-2022 09:39, Nonspecific T wave abnormality now evident in Lateral leads Referred By: Generic ED Physician Electronically Signed By:MORENA KEARNS
--- NOTE | 2022-01-15 08:06 | ED.GENADULT ---
HPI - General Adult General Chief complaint: Extremity Problem Stated complaint: l flank pain Time Seen by Provider: 01/15/22 07:59 Source: patient Mode of arrival: ambulatory Limitations: no limitations History of Present Illness HPI narrative: 36 years old female came in for evaluation of left breast pain, patient get breast pain when she is or having her menstruation, left breast pain is only in the left nipple then therefore almost 2 weeks, pain is dull and constant, with no radiation, pain has not been affected by movement of the extremities. Declined any redness, swelling, firmness, nipple discharge, fever or chills. Family history not significant for cancers except the grandmother had breast cancer when she was 80 years old. Patient had similar symptoms in the past seen by specialist at [facility] reportedly ordered breast ultrasound which showed fibrocystic breast. Related Data Previous Rx's Medication Instructions Recorded lorazepam 0.5 mg tablet (Ativan) 0.5 mg PO TID PRN #10 tab 03/19/21 nitrofurantoin 100 mg PO Q12H 7 Days #14 cap 01/15/22 monohydrate/macrocrystals 100 mg capsule (Macrobid) Allergies Allergy/AdvReac Type Severity Reaction Status Date / Time No Known Allergies Allergy Unknown NOT Verified 08/16/21 15:30 APPLICABLE Review of Systems Review of Systems: All other systems are reviewed and are negative Constitutional: Reports as per HPI and Reports no additional constitutional complaints Eyes: Reports as per HPI and Reports no additional eye complaints Reports system reviewed and no additional complaints, except as documented Cardiovascular: Reports as per HPI and Reports no additional cardiovascular complaints Respiratory: Reports as per HPI and Reports no additional respiratory complaints Gastrointestinal: Reports as per HPI and Reports no additional gastrointestinal complaints Genitourinary: Reports no additional female genitourinary complaints Musculoskeletal: Reports no additional musculoskeletal complaints Skin/Breast: Reports system reviewed and no additional complaints, except as docu Psychiatric: Reports no additional psychiatric complaints Endocrine: Reports no additional endocrine complaints Hematologic/Lymphatic: Reports no additional hematologic/lymphatic complaints Allergic/Immunologic: Reports no additional allergic/immunologic complaints Reports system reviewed and no additional complaints, except as documented and Reports Abnormal speech present [facility] Past Medical History Medical History Anxiety delivery delivered Cholecystectomy planned Heart palpitations Social History Social History Alcohol intake: never Advance Directives: No Advance Directives Information Provided: No Patient : No Physical Exam ED Vital Signs: Vital Signs - 24 hr 01/15/22 07:26 01/15/22 08:40 Temperature 97.4 F Pulse Rate 85 75 Respiratory Rate 17 14 Blood Pressure 159/71 H 117/72 Pulse Oximetry 100 99 BMI result Body Mass Index 25.0 Vital signs have been reviewed as appeared to be correct. Blood pressure normal. Heart rate normal. Respiration rate normal. Temperature normal. Oxygen saturation normal. Appearance: Alert. Oriented X3. No acute distress. Head: Normal external exam. Normocephalic. Atraumatic. No Morales signs noted. No raccoon eyes noted Eyes: PERRLA. EOMI. Conjunctiva and sclera normal. Eyelids normal. ENT: TM's Normal. Pharynx normal. Uvula midline. Moist mucous membranes. No trismus noted. No drooling noted. No muffled voice noted. Neck: Normal inspection. Neck supple. FROM. No adenopathy. Thyroid Normal. No meningeal signs. No neck mass noted. CVS: Normal heart rate and rhythm. Heart sound normal. No murmurs noted. Pulses normal throughout. Breast exam: Both breasts are symmetric in size and shape, enlarged axillary lymph node, no palpable breast mass bilaterally, no nipple discharge, no area of redness or hotness or fluctuation. Respiratory: No respiratory distress. Painless inspiration. Breath sounds normal. No wheezes/rales/rhonchi noted. Chest nontender. No accessory muscle usage noted or decreased air movement noted. Abdomen: Soft and nontender. Bowel sounds normal in all 4 quadrants. No distention noted. No organomegaly noted. No visible injury noted. Back: No CVA tenderness. Full range of motion noted. Skin: Skin warm and dry. Normal skin color. Normal skin turgor. No rashes/lesions/lacerations noted. Extremities: No lower extremity edema. Extremities exhibit normal range of motion. Extremities nontender. Neuro: Oriented X 3. Cranial nerve exam: II-XII are grossly intact No motor deficit. No sensory deficit. Reflexes normal. Course Course Course Narrative: Assessment and plan. 36-year-old female came in for evaluation of left nipple pain, normal physical exam, no risk for malignancy, patient was instructed to follow-up with PCP and arrange for her 1st mammogram by her PCP. Urine is showing trace of LE and WBCs patient with symptoms of increased frequency, will start the patient on Macrobid and patient was instructed to drink plenty of fluids. Medical Decision Making Lab Data Lab results reviewed: Yes I reviewed the patient's lab results. Result diagrams: 01/15/22 08:29 01/15/22 08:29 Labs: Lab Results 01/15/22 01/15/22 01/15/22 Range/Units 08:29 08:29 08:31 WBC 8.9 (4.8-10.8) X10*3/uL RBC 4.32 (4.20-5.50) X10*6/uL Hgb 13.1 (12.0-16.0) g/dl Hct 40.2 (37.0-47.0) % MCV 93.1 (80.0-98.0) fL MCH 30.3 (27.0-33.0) pg MCHC 32.6 (31.0-35.0) g/dl RDW 13.0 (11.0-16.0) % Plt Count 186 (160-400) X10*3/uL MPV 11.1 (9.4-12.3) fL Immature Gran % (Auto) 0.3 (0.0-0.4) % Neut % (Auto) 69.6 (45-73) % Lymph % (Auto) 21.5 (20-40) % Wise % (Auto) 6.7 (2-11) % Eos % (Auto) 1.5 (0-4) % Baso % (Auto) 0.4 (0-2) % Lymph # (Auto) 1.9 (1.2-4.9) X10*3/uL Wise # (Auto) 0.6 (0.1-1.2) X10*3/uL Eos # (Auto) 0.1 (0.0-0.4) X10*3/uL Baso # (Auto) 0.0 (0.0-0.2) X10*3/uL Abs Immat Gran (auto) 0.03 (0.00-0.03) X10*3/uL Absolute Neuts (auto) 6.2 (2.0-8.3) x10*3/uL Absolute Nucleated RBC 0.000 (0.0-0.012) X10*3/uL Nucleated RBC % (auto) 0.0 (0.0-0.2) /100WBC Sodium 142 (135-145) mmol/L Potassium 5.0 D (3.3-5.1) mmol/L Chloride 109 H (96-108) mmol/L Carbon Dioxide 28 (22-29) mmol/L Anion Gap 10 L (12-20) BUN 12 (9-16) mg/dL Creatinine 0.76 (0.5-1.4) mg/dL Estim Creat Clear Calc 93.8 Estimated GFR > 60 Random Glucose 100 (60-115) mg/dL Calcium 9.3 (8.4-10.2) mg/dL Urine Color YELLOW Urine Appearance HAZY Urine pH 6.0 (5.0-8.0) Ur Specific [place] >= 1.030 H (1.005-1.025) Urine Protein NEG (NEG-TRACE) MG/DL Urine Glucose (UA) NEG (NEG) MG/DL Urine Ketones NEG (NEG) MG/DL Urine Blood NEG (NEG) Urine Nitrite NEG (NEG) Ur Leukocyte Esterase TRACE H (NEG) Urine RBC 0 (0) /HPF Urine WBC 5-9 H (0-4) /HPF Ur Squamous Epith Cells 3+ /LPF Calcium Oxalate Crystal 2+ /LPF Urine Bacteria 1+ /LPF Urine Mucus 1+ /LPF Urine Test (NEGATIVE) 01/15/22 Range/Units 08:32 WBC (4.8-10.8) X10*3/uL RBC (4.20-5.50) X10*6/uL Hgb (12.0-16.0) g/dl Hct (37.0-47.0) % MCV (80.0-98.0) fL MCH (27.0-33.0) pg MCHC (31.0-35.0) g/dl RDW (11.0-16.0) % Plt Count (160-400) X10*3/uL MPV (9.4-12.3) fL Immature Gran % (Auto) (0.0-0.4) % Neut % (Auto) (45-73) % Lymph % (Auto) (20-40) % Wise % (Auto) (2-11) % Eos % (Auto) (0-4) % Baso % (Auto) (0-2) % Lymph # (Auto) (1.2-4.9) X10*3/uL Wise # (Auto) (0.1-1.2) X10*3/uL Eos # (Auto) (0.0-0.4) X10*3/uL Baso # (Auto) (0.0-0.2) X10*3/uL Abs Immat Gran (auto) (0.00-0.03) X10*3/uL Absolute Neuts (auto) (2.0-8.3) x10*3/uL Absolute Nucleated RBC (0.0-0.012) X10*3/uL Nucleated RBC % (auto) (0.0-0.2) /100WBC Sodium (135-145) mmol/L Potassium (3.3-5.1) mmol/L Chloride (96-108) mmol/L Carbon Dioxide (22-29) mmol/L Anion Gap (12-20) BUN (9-16) mg/dL Creatinine (0.5-1.4) mg/dL Estim Creat Clear Calc Estimated GFR Random Glucose (60-115) mg/dL Calcium (8.4-10.2) mg/dL Urine Color Urine Appearance Urine pH (5.0-8.0) Ur Specific [place] (1.005-1.025) Urine Protein (NEG-TRACE) MG/DL Urine Glucose (UA) (NEG) MG/DL Urine Ketones (NEG) MG/DL Urine Blood (NEG) Urine Nitrite (NEG) Ur Leukocyte Esterase (NEG) Urine RBC (0) /HPF Urine WBC (0-4) /HPF Ur Squamous Epith Cells /LPF Calcium Oxalate Crystal /LPF Urine Bacteria /LPF Urine Mucus /LPF Urine Test NEGATIVE (NEGATIVE) Discharge Plan Discharge Clinical Impression: Breast pain, UTI (urinary tract infection) Patient Disposition: Home, Self-Care Instructions: Urinary Tract Infection in Women (ED) Prescriptions: New nitrofurantoin monohyd/m-cryst [Macrobid] 100 mg capsule 100 mg PO Q12H 7 Days Qty: 14 0RF Rx Instructions: must administer with a meal/food No Action lorazepam [Ativan] 0.5 mg tablet 0.5 mg PO TID PRN (Reason: anxiety) Qty: 10 0RF Rx Instructions: patient may ask for partial fill Referrals: Simi Lara NP [Primary Care Provider] - 2 days Stand Alone Forms: Work/School Release
[2022-01-15 08:37] LABS: MANUAL DIFF FLAG NO
[2022-01-15] MEDS: Ibuprofen 400 MG TABLET PO (08:38)
[2022-01-15 08:40] VITALS: BP 117/72; PULSE 75; RESP 14; O2SAT 99
[2022-01-15 08:40] LABS: Basophils Percent Auto 0.4 % (0-2); Eosinophils Absolute Auto 0.1 X10*3/uL (0.0-0.4); Eosinophils Percent Auto 1.5 % (0-4); Hematocrit 40.2 % (37.0-47.0); Hemoglobin 13.1 g/dl (12.0-16.0); Imm Gran Abs Auto 0.03 X10*3/uL (0.00-0.03); Imm Gran Pct Auto 0.3 % (0.0-0.4); Lymphocytes Absolute Auto 1.9 X10*3/uL (1.2-4.9); Lymphocytes Percent Auto 21.5 % (20-40); Mean Corpuscular HGB Conc 32.6 g/dl (31.0-35.0); Mean Corpuscular Hemoglobin 30.3 pg (27.0-33.0); Mean Corpuscular Volume 93.1 fL (80.0-98.0); Mean Platelet Volume 11.1 fL (9.4-12.3); Monocytes Absolute Auto 0.6 X10*3/uL (0.1-1.2); Monocytes Percent Auto 6.7 % (2-11); Neutrophils Absolute Auto 6.2 x10*3/uL (2.0-8.3); Neutrophils Percent Auto 69.6 % (45-73); Platelet Count 186 X10*3/uL (160-400); Red Blood Count 4.32 X10*6/uL (4.20-5.50); White Blood Count 8.9 X10*3/uL (4.8-10.8)
[2022-01-15 08:48] LABS: Appearance Urine HAZY; Color Urine YELLOW; Glucose Urine UA NEG (NEG); Leukocyte Esterase Urine TRACE (NEG); Nitrite Urine NEG (NEG); Specific Gravity - Urine >= 1.030 (1.005-1.025); UACC Culture Trigger YES; Urine Blood NEG (NEG); Urine Ketones NEG (NEG); Urine Protein NEG (NEG-TRACE)
[2022-01-15 08:50] LABS: UPreg QC Valid YES; Urine Pregnancy NEGATIVE (NEGATIVE)
[2022-01-15 08:53] LABS: Anion Gap 10 (12-20); Blood Urea Nitrogen 12 mg/dL (9-16); Calcium 9.3 mg/dL (8.4-10.2); Carbon Dioxide 28 mmol/L (22-29); Chloride 109 mmol/L (96-108); Creatinine Clr Calc Pharmacy 93.8; Estimated Glomerular Filt Rate > 60; Glucose Random 100 mg/dL (60-115); Sodium 142 mmol/L (135-145)
[2022-01-15 08:54] LABS: Bacteria Urine 1+ /LPF; Calcium Oxalate Crystals Urine 2+ /LPF; RBC Urine 0 /HPF (0); UACC CULT YES
[2022-01-15 08:55] LABS: Mucus Urine 1+ /LPF; Squamous Epithelial Cell Urine 3+ /LPF
== END 2022-01-15 10:06 | disposition home or self-care (01) ==
PROVIDERS: Emergency Provider Emergency Medicine; PCP Nurse Practitioner Family
DX: N64.4 Mastodynia (principal); N39.0 Urinary tract infection, site not specified
CPT/HCPCS: 36415; 80048; 81001; 81025; 85025; 87086; 93005; 99283; 99284

== ENCOUNTER 2022-01-17 19:03 | Emergency (ER) | payer OTHER, SELFPAY ==
--- NOTE | ~2022-01-17 | XR_ITS ---
EXAMINATION: XR CHEST CLINICAL INFORMATION: Epigastric pain COMPARISON: None TECHNIQUE: 2 views of the chest were obtained. FINDINGS: Lungs are well-inflated and clear. Trachea is midline in position. No consolidation or mass. No pulmonary edema, pleural effusion or pneumothorax. Cardiac silhouette and pulmonary vessels are normal in size. The mediastinum and berenice have normal contour. Cholecystectomy clips in the upper abdomen. Otherwise, the visualized bones and upper abdomen are unremarkable. XR/XR chest 2V IMPRESSION: No acute cardiopulmonary abnormality.
[2022-01-17 19:27] VITALS: BP 128/78; PULSE 70; RESP 18; TEMP 37.3; O2SAT 100; BMI 25.0
[2022-01-17 19:59] LABS: COVID-19 Test Negative (Negative)
[2022-01-17 20:00] VITALS: BP 126/74; PULSE 68; RESP 18; TEMP 37.2; O2SAT 99
--- NOTE | 2022-01-17 20:35 | ED.GENADULT ---
HPI - General Adult General Chief complaint: General Medical Stated complaint: Throat pain Source: patient Mode of arrival: ambulatory Limitations: no limitations History of Present Illness HPI narrative: 36-year-old female presents with complaints consistent with heartburn that started last night. Stated that she has been eating out every single night, and feels that there is some burning in her esophagus. Also had 2 episodes of loose stool which has resolved. Onset (ago): day(s) Location: chest Radiation: non-radiation Severity: mild Severity scale (1-10): 3 Quality: burning Pain Consistency: constant Relieving factors: none Exacerbating factors: eating Associated symptoms: denies other symptoms Treatments prior to arrival: none Related Data Previous Rx's Medication Instructions Recorded lorazepam 0.5 mg tablet (Ativan) 0.5 mg PO TID PRN #10 tab 03/19/21 nitrofurantoin 100 mg PO Q12H 7 Days #14 cap 01/15/22 monohydrate/macrocrystals 100 mg capsule (Macrobid) Allergies Allergy/AdvReac Type Severity Reaction Status Date / Time No Known Allergies Allergy Unknown NOT Verified 01/17/22 19:27 APPLICABLE Review of Systems Review of Systems: Constitutional: No Fever, No Chills ENT/Mouth: No Ear Pain, No Hoarseness, No sore throat Eyes: No Eye Pain, No Swelling, No Redness, No Foreign Body Cardiovascular: Positive Chest Pain, No SOB Respiratory: No Cough, No Dyspnea Gastrointestinal: Positive reflux symptoms, No Nausea, No Vomiting, No Diarrhea, No abdominal Pain Genitourinary: No Dysuria, No Hematuria Musculoskeletal: No joint pain, No Myalgias, No Joint Swelling Skin: No Skin lacerations, No rash Neuro: No Weakness, No Numbness, No Paresthesias, No Loss of Consciousness, No Dizziness, No Headache Psych: No Anxiety/Panic, No Depression Heme/Lymph: no easy bruising, no Lymphadenopathy Endocrine: No Polyuria, No Polydipsia Yes all other systems are reviewed and are negative [facility] Past Medical History Attestation statement: The following information was validated with the patient. Source: old records reviewed Medical History Anxiety delivery delivered Cholecystectomy planned Heart palpitations Social History Social History Alcohol intake: never Advance Directives: No Advance Directives Information Provided: Yes Patient : No Physical Exam ED Vital Signs: Vital Signs - 24 hr 01/17/22 19:27 01/17/22 20:00 Temperature 99.1 F 99.0 F Pulse Rate 70 68 Respiratory Rate 18 18 Blood Pressure 128/78 126/74 Pulse Oximetry 100 99 BMI result Body Mass Index 25.0 Appearance: Alert. Oriented X3. No acute distress. Eyes: Pupils equal, round and reactive to light. ENT: Pharynx normal. Neck: Normal inspection. Neck supple. CVS: Normal heart rate and rhythm. Pulses normal. Respiratory: No respiratory distress. Breath sounds normal. Abdomen: Soft and nontender. Skin: Skin warm and dry. Normal skin color. Normal skin turgor. Extremities: No lower extremity edema. Gait well-balanced well coordinated Neuro: No motor deficit. No sensory deficit. Cranial nerves 2-12 intact. Course Course Course Narrative: 36-year-old female presents with symptoms consistent with GERD, reporting burning in her esophagus after eating out daily for the past 2 weeks. Will order EKG and chest x-ray, give Maalox. Patient states Maalox works well. EKG normal, chest x-ray negative for sign indicating need for emergent intervention. Plan of care is to discharge home with patient altering her diet as well as taking Pepcid, and following up with primary care physician. Patient verbalized understanding of and agrees to plan of care discharge home. Verbalized understanding of signs and symptoms indicating need for emergent intervention Medical Decision Making Differential Diagnosis Differential Diagnosis: GERD, pharyngitis, ACS Medical Records Medical records reviewed: Yes I reviewed the patient's medical records. Lab Data Lab results reviewed: Yes I reviewed the patient's lab results. Labs: Lab Results 01/17/22 Range/Units 19:34 COVID-19 (GHANSHYAM) Negative (Negative) COVID-19 Clin Com See Note Imaging Data Chest x-ray: Attestation: I personally reviewed and interpreted this imaging study as follows: Radiologist's impression: EXAMINATION: XR CHEST CLINICAL INFORMATION: Epigastric pain COMPARISON: None TECHNIQUE: 2 views of the chest were obtained. FINDINGS: Lungs are well-inflated and clear. Trachea is midline in position. No consolidation or mass. No pulmonary edema, pleural effusion or pneumothorax.? Cardiac silhouette and pulmonary vessels are normal in size. The mediastinum and berenice have normal contour. Cholecystectomy clips in the upper abdomen. Otherwise, the visualized bones and upper abdomen are unremarkable. XR/XR chest 2V IMPRESSION: No acute cardiopulmonary abnormality. ECG Data Attestation: I personally reviewed and interpreted this ECG as follows: Prior ECG tracings: available for review Interpretation: Vent. rate 67 BPM AL interval 146 ms QRS duration 76 ms QT/QTc 372/393 ms P-R-T axes 66 43 22 Normal sinus rhythm Normal ECG When compared with ECG of 15-JAN-2022 07:30, Vent. rate has decreased BY 33 BPM Nonspecific T wave abnormality no longer evident in Lateral leads 17-JAN-2022 21:11:27 Discharge Plan Discharge Clinical Impression: Gastroesophageal reflux disease Patient Disposition: Home, Self-Care Instructions: Indigestion (ED) Additional Instructions: You were evaluated for throat and esophageal burning. EKG is normal sinus rhythm. Chest x-ray is negative. This is most likely due to reflux. Please follow-up with your primary care physician for further workup. You may need Gastroenterology if reflux symptoms persist. Please take Pepcid 20 mg daily for the next 2 weeks. This medication can be purchased [id number] Thank you for choosing this emergency department for evaluation. Please follow-up with primary care physician as needed. Return to the emergency department for any new, concerning, or worsening symptoms. Prescriptions: No Action lorazepam [Ativan] 0.5 mg tablet 0.5 mg PO TID PRN (Reason: anxiety) Qty: 10 0RF Rx Instructions: patient may ask for partial fill nitrofurantoin monohyd/m-cryst [Macrobid] 100 mg capsule 100 mg PO Q12H 7 Days Qty: 14 0RF Rx Instructions: must administer with a meal/food Interventions: ED Discharge Assessment Last Done: 01/17/22 22:04 Discharge Date/Time: 01/17/22 22:05
--- NOTE | 2022-01-17 21:00 | ECG_ITS ---
Test Reason : ABDOMINAL PAIN Blood Pressure : / mmHG Vent. Rate : 067 BPM Atrial Rate : 067 BPM P-R Int : 146 ms QRS Dur : 076 ms QT Int : 372 ms P-R-T Axes : 066 043 022 degrees QTc Int : 393 ms Normal sinus rhythm Normal ECG When compared with ECG of 15-JAN-2022 07:30, Vent. rate has decreased BY 33 BPM No significant changes seen Referred By: Valerie Casey Electronically Signed By:MORENA KEARNS
[2022-01-17] MEDS: Magnesium Hydrox/Alum Hydrox 30 ML ORAL.SUSP PO (21:29)
== END 2022-01-17 22:05 | disposition home or self-care (01) ==
PROVIDERS: Emergency Provider Internal Medicine
DX: K21.9 Gastro-esophageal reflux disease without esophagitis (principal); Z20.822 Contact with and (suspected) exposure to COVID-19
CPT/HCPCS: 71046; 87635; 93005; 99283; 99284

== ENCOUNTER 2022-04-06 08:44 | Emergency (ER) | payer OTHER, SELFPAY ==
--- NOTE | ~2022-04-06 | CT_ITS ---
EXAMINATION: CT HEAD WITHOUT CONTRAST CLINICAL INFORMATION: Difficulty concentrating, fatigue. Brain infarct COMPARISON: None TECHNIQUE: Contiguous axial imaging was performed from the skull base to vertex without intravenous administration of contrast. This CT examination was performed using dose optimization techniques as appropriate, variously including the following: *Automated exposure control *Adjustment of mA and/or kV according to patient size (this includes techniques or standardized protocols for targeted exams where dose is matched to indication/reason for exam; i.e. extremities or head) *Use of iterative reconstruction technique DLP: 581 mGy-cm FINDINGS: There is no evidence of acute intracranial hemorrhage or territorial infarction. No abnormal mass effect or midline shift is seen. Garcia to white matter differentiation is well preserved. No extra-axial fluid collections are identified. The ventricles are normal in size. There is no abnormal attenuation within the brain parenchyma. The osseous structures and soft tissues are normal. The mastoid air cells and visualized portions of the paranasal sinuses are well aerated. CT/CT head/brain wo con IMPRESSION: No acute intracranial process seen.
[2022-04-06 10:16] VITALS: BP 136/67; PULSE 89; RESP 16; TEMP 36.4; O2SAT 100; BMI 27.4
[2022-04-06 20:19] VITALS: BP 128/75; PULSE 68; RESP 16; TEMP 36; O2SAT 99
[2022-04-06 20:59] LABS: MANUAL DIFF FLAG NO
[2022-04-06] MEDS: LORazepam 1 MG TABLET PO (20:59)
[2022-04-06 21:00] LABS: Basophils Absolute Auto 0.1 X10*3/uL (0.0-0.2); Basophils Percent Auto 0.5 % (0-2); Eosinophils Absolute Auto 0.2 X10*3/uL (0.0-0.4); Eosinophils Percent Auto 1.7 % (0-4); Imm Gran Abs Auto 0.02 X10*3/uL (0.00-0.03); Imm Gran Pct Auto 0.2 % (0.0-0.4); Lymphocytes Absolute Auto 3.1 X10*3/uL (1.2-4.9); Lymphocytes Percent Auto 31.7 % (20-40); Mean Corpuscular HGB Conc 33.3 g/dl (31.0-35.0); Mean Corpuscular Hemoglobin 30.4 pg (27.0-33.0); Mean Corpuscular Volume 91.3 fL (80.0-98.0); Mean Platelet Volume 11.2 fL (9.4-12.3); Monocytes Absolute Auto 0.7 X10*3/uL (0.1-1.2); Monocytes Percent Auto 6.7 % (2-11); Neutrophils Absolute Auto 5.8 x10*3/uL (2.0-8.3); Neutrophils Percent Auto 59.2 % (45-73); Platelet Count 235 X10*3/uL (160-400); Red Cell Distribution Width 13.1 % (11.0-16.0); White Blood Count 9.8 X10*3/uL (4.8-10.8)
[2022-04-06 21:02] LABS: Appearance Urine HAZY; Color Urine YELLOW; Glucose Urine UA NEG (NEG); Leukocyte Esterase Urine NEG (NEG); Nitrite Urine NEG (NEG); Specific Gravity - Urine >= 1.030 (1.005-1.025); UACC Culture Trigger NO; Urine Blood 1+ (NEG); Urine Ketones 15 MG/DL (NEG); Urine Protein TRACE MG/DL (NEG-TRACE)
--- NOTE | 2022-04-06 21:03 | ED.GENADULT ---
HPI - General Adult General Chief complaint: General Medical Stated complaint: drowsy, brain fog Time Seen by Provider: 04/06/22 20:35 Source: patient Mode of arrival: ambulatory Limitations: no limitations History of Present Illness HPI narrative: 36-year-old female with a past medical history of heart palpitations and anxiety presenting to the ED with complaints of 2 weeks of ?brain fog? she reports as feeling very fatigued, tired with difficulty concentrating and intermittent headaches and intermittent nausea. She denies any recent falls or trauma to the head. She reports she has never felt this way in the past. She also reports possible dysuria thinks she might have a UTI. She denies any measured fevers, dizziness, headaches at this time, changes in vision, neck pain/stiffness, trouble swallowing or breathing, sore throat, ear pain, loss of taste or smell, chest pain or shortness of breath, dyspnea on exertion, orthopnea, palpitations, lower extremity edema or calf tenderness, paresthesias, abdominal pain, nausea/vomiting/diarrhea constipation, black or bloody stools, recent travel, sick contacts, polyuria/polydipsia, any other symptoms complaints or concerns at this time. MD complaint: Brain fog/fatigue/difficulty concentrating and intermittent headaches Onset (ago): week(s) (2) Location: head Radiation: non-radiation Severity: moderate Pain Consistency: constant Relieving factors: none Exacerbating factors: none Associated symptoms: headaches and nausea/vomiting Treatments prior to arrival: none Related Data Previous Rx's Medication Instructions Recorded lorazepam 0.5 mg tablet (Ativan) 0.5 mg PO TID PRN #10 tab 03/19/21 nitrofurantoin 100 mg PO Q12H 7 Days #14 cap 01/15/22 monohydrate/macrocrystals 100 mg capsule (Macrobid) lorazepam 1 mg tablet (Ativan) 1 mg PO Q8H PRN #14 tab 04/06/22 Allergies Allergy/AdvReac Type Severity Reaction Status Date / Time No Known Allergies Allergy Unknown NOT Verified 01/17/22 19:27 APPLICABLE Review of Systems Review of Systems: Constitutional : No Fever, No Chills, No Night Sweats, No Fatigue, No Malaise ENT/Mouth : No Ear Pain, No Nasal Congestion, No Sinus Pain, No sore throat, No Rhinorrhea Eyes: No Eye Pain, No Swelling, No Redness, No Foreign Body, No Discharge, No Vision Changes Cardiovascular : No Chest Pain, No SOB, No Dyspnea on Exertion, No Orthopnea, No Palpitations Respiratory : No Cough, No Sputum, No Wheezing, No Dyspnea Gastrointestinal : No Nausea, No Vomiting, No Diarrhea, No Constipation, No abdominal Pain, No Hematochezia, No Melena Genitourinary : + Dysuria, No Urinary Frequency, No Urinary Incontinence, No Urgency, No Flank Pain Musculoskeletal : No joint pain, No Myalgias Skin : No lacerations Neuro : + intermittent headaches/difficulty concentrating/brain fall, No Focal weakness, no general weakness, No Numbness, No Paresthesias, No Loss of Consciousness, No Dizziness Yes all other systems are reviewed and are negative FOR[facility]LY [facility] Past Medical History Attestation statement: The following information was validated with the patient. Medical History Anxiety delivery delivered Cholecystectomy planned Heart palpitations Social History Social History Alcohol intake: never Advance Directives: No Advance Directives Information Provided: No Physical Exam ED Vital Signs: Vital Signs - 24 hr 04/06/22 10:16 04/06/22 20:19 Temperature 97.6 F 96.8 F Pulse Rate 89 68 Respiratory Rate 16 16 Blood Pressure 136/67 128/75 Pulse Oximetry 100 99 BMI result Body Mass Index 27.4 vital signs have been reviewed as normal and appeared to be correct. Blood pressure normal. Heart rate normal. Respiration rate normal. Temperature normal. Oxygen saturation normal. Appearance: Alert. Oriented X3. No acute distress. Head: Normal external exam. Normocephalic. Atraumatic. Able to rotate head bilaterally. Eyes: PERRLA. EOMI. Conjunctiva and sclera normal. Eyelids normal. Corneal reflex normal. ENT: EAC normal. TM's Normal. No septal hematoma noted. No hemotympanum noted. Pharynx normal. Uvula midline. Moist mucous membranes. No lesions/ulcerations or masses noted on the tongue. Normal voice. No trismus noted. No drooling noted. No muffled voice noted. Neck: Normal inspection. Neck supple. FROM. No adenopathy. Thyroid Normal. No tracheal deviation noted. No crepitus is noted. No meningeal signs. No neck mass noted. No signs of trauma noted. CVS: Normal heart rate and rhythm. Heart sound normal. Pulses normal throughout. No murmurs/rales/gallops. Respiratory: No respiratory distress. Painless inspiration. Breath sounds normal. No wheezes/rales/rhonchi noted. Chest nontender. No crepitus is noted. No signs of trauma noted. No accessory muscle usage noted or decreased air movement noted. No signs of trauma. Abdomen: Soft and nontender. Bowel sounds normal in all 4 quadrants. No distention noted. No organomegaly noted. No visible injury noted. Back: No CVA tenderness. Full range of motion noted. Nontender. No signs of trauma. Patient neuro intact bilaterally and distally on all 4 extremities. Patient's reflexes intact bilaterally and distally on all 4 extremities. No rashes/lesion/induration/fluctuance or signs of infection noted. Skin: Skin warm and dry. Normal skin color. Normal skin turgor. No rashes/lesions/lacerations noted. Extremities: No lower extremity edema. No calf tenderness is noted. Extremities exhibit normal range of motion and nontender. Neuro: Oriented X 3. No motor deficit. No sensory deficit. Reflexes normal. Moving all extremities. No focal motor deficits. Cranial nerves II-XI intact bilaterally. Facial strength normal. Normal cognition. Speech normal. Gait normal. Strength 5/5 throughout. No pronator drift. No tremor noted. No fasciculations noted. No rigidity noted. Muscle tone normal throughout. No asterixis noted. [id number] test normal. Heel to alamo test normal. Tandem gait normal. Does not sway with eyes open. Romberg test negative. Rapid alternating movement upper extremity normal. Rapid alternating movement lower extremity normal. Hand drop from overhead Misses face. NIHSS score 0 Vascular: + radial pulses/+ 2 distal pedal pulses/+2 dorsalis pedis b/l. Normal cap refill. No cyanosis noted to upper extremity nails and lower extremity toes nails. Course Course Course Narrative: 20:35pm - 36-year-old female with a past medical history of heart palpitations and anxiety presenting to the ED with complaints of 2 weeks of ?brain fog? she reports as feeling very fatigued, tired with difficulty concentrating and intermittent headaches and intermittent nausea. She denies any recent falls or trauma to the head. She reports she has never felt this way in the past. She also reports possible dysuria thinks she might have a UTI. Plan: Labs, CT scan of brain, UA and re-evaluate. Reevaluation(s) Reevaluation #1: - labs reviewed and total bilirubin 1.3. Otherwise all other labs including TSH level within normal limits. UA revealed blood although negative nitrates and negative leukocyte therefore not consistent with a UTI. Patient negative for . Patient negative for COVID/flu. CT scan of brain within normal limits no acute processes noted. Therefore at this time I am unsure what is causing the patient's unable to concentrate and fogginess and intermittent headaches will DC home with instructions return if any new or worsening symptoms to follow up with primary care provider. Patient understands agrees with this plan. Time: 21:53 Medical Decision Making Medical Records Medical records reviewed: Yes I reviewed the patient's medical records. Lab Data Lab results reviewed: Yes I reviewed the patient's lab results. Result diagrams: 04/06/22 20:50 04/06/22 20:50 Labs: Lab Results 04/06/22 04/06/22 04/06/22 Range/Units 20:37 20:50 20:50 WBC 9.8 (4.8-10.8) X10*3/uL RBC 4.60 (4.20-5.50) X10*6/uL Hgb 14.0 (12.0-16.0) g/dl Hct 42.0 (37.0-47.0) % MCV 91.3 (80.0-98.0) fL MCH 30.4 (27.0-33.0) pg MCHC 33.3 (31.0-35.0) g/dl RDW 13.1 (11.0-16.0) % Plt Count 235 D (160-400) X10*3/uL MPV 11.2 (9.4-12.3) fL Immature Gran % (Auto) 0.2 (0.0-0.4) % Neut % (Auto) 59.2 (45-73) % Lymph % (Auto) 31.7 (20-40) % Bennett % (Auto) 6.7 (2-11) % Eos % (Auto) 1.7 (0-4) % Baso % (Auto) 0.5 (0-2) % Lymph # (Auto) 3.1 (1.2-4.9) X10*3/uL Bennett # (Auto) 0.7 (0.1-1.2) X10*3/uL Eos # (Auto) 0.2 (0.0-0.4) X10*3/uL Baso # (Auto) 0.1 (0.0-0.2) X10*3/uL Abs Immat Gran (auto) 0.02 (0.00-0.03) X10*3/uL Absolute Neuts (auto) 5.8 (2.0-8.3) x10*3/uL Absolute Nucleated RBC 0.000 (0.0-0.012) X10*3/uL Nucleated RBC % (auto) 0.0 (0.0-0.2) /100WBC Sodium 141 (135-145) mmol/L Potassium 3.9 D (3.3-5.1) mmol/L Chloride 107 (96-108) mmol/L Carbon Dioxide 25 (22-29) mmol/L Anion Gap 13 (12-20) BUN 11 (9-16) mg/dL Creatinine 0.77 (0.5-1.4) mg/dL Estim Creat Clear Calc 108.0 Estimated GFR > 60 Random Glucose 91 (60-115) mg/dL Calcium 10.0 D (8.4-10.2) mg/dL Magnesium 1.9 (1.6-2.6) mg/dL Total Bilirubin 1.3 H (0.0-1.0) mg/dL AST 15 (5-31) U/L ALT 14 (0-31) U/L Alkaline Phosphatase 59 (39-117) U/L Total Protein 7.5 (6.5-8.0) g/dL Albumin 4.5 (3.5-5.0) g/dL TSH (0.32-4.0) uIU/mL Urine Color Urine Appearance Urine pH (5.0-8.0) Ur Specific [place] (1.005-1.025) Urine Protein (NEG-TRACE) MG/DL Urine Glucose (UA) (NEG) MG/DL Urine Ketones (NEG) MG/DL Urine Blood (NEG) Urine Nitrite (NEG) Ur Leukocyte Esterase (NEG) Urine RBC (0) /HPF Urine WBC (0-4) /HPF Ur Squamous Epith Cells /LPF Urine Bacteria /LPF Urine Test NEGATIVE (NEGATIVE) COVID-19 (GHANSHYAM) (Negative) COVID-19 Clin Com Influenza Type A (ALVINO) (Negative) Influenza Type B (ALVINO) (Negative) Influenza A & B Note 04/06/22 04/06/22 04/06/22 Range/Units 20:50 20:50 20:51 WBC (4.8-10.8) X10*3/uL RBC (4.20-5.50) X10*6/uL Hgb (12.0-16.0) g/dl Hct (37.0-47.0) % MCV (80.0-98.0) fL MCH (27.0-33.0) pg MCHC (31.0-35.0) g/dl RDW (11.0-16.0) % Plt Count (160-400) X10*3/uL MPV (9.4-12.3) fL Immature Gran % (Auto) (0.0-0.4) % Neut % (Auto) (45-73) % Lymph % (Auto) (20-40) % Bennett % (Auto) (2-11) % Eos % (Auto) (0-4) % Baso % (Auto) (0-2) % Lymph # (Auto) (1.2-4.9) X10*3/uL Bennett # (Auto) (0.1-1.2) X10*3/uL Eos # (Auto) (0.0-0.4) X10*3/uL Baso # (Auto) (0.0-0.2) X10*3/uL Abs Immat Gran (auto) (0.00-0.03) X10*3/uL Absolute Neuts (auto) (2.0-8.3) x10*3/uL Absolute Nucleated RBC (0.0-0.012) X10*3/uL Nucleated RBC % (auto) (0.0-0.2) /100WBC Sodium (135-145) mmol/L Potassium (3.3-5.1) mmol/L Chloride (96-108) mmol/L Carbon Dioxide (22-29) mmol/L Anion Gap (12-20) BUN (9-16) mg/dL Creatinine (0.5-1.4) mg/dL Estim Creat Clear Calc Estimated GFR Random Glucose (60-115) mg/dL Calcium (8.4-10.2) mg/dL Magnesium (1.6-2.6) mg/dL Total Bilirubin (0.0-1.0) mg/dL AST (5-31) U/L ALT (0-31) U/L Alkaline Phosphatase (39-117) U/L Total Protein (6.5-8.0) g/dL Albumin (3.5-5.0) g/dL TSH 2.35 (0.32-4.0) uIU/mL Urine Color YELLOW Urine Appearance HAZY Urine pH 6.0 (5.0-8.0) Ur Specific [place] >= 1.030 H (1.005-1.025) Urine Protein TRACE (NEG-TRACE) MG/DL Urine Glucose (UA) NEG (NEG) MG/DL Urine Ketones 15 (NEG) MG/DL Urine Blood 1+ H (NEG) Urine Nitrite NEG (NEG) Ur Leukocyte Esterase NEG (NEG) Urine RBC 1-4 (0) /HPF Urine WBC 0 (0-4) /HPF Ur Squamous Epith Cells 3+ /LPF Urine Bacteria 2+ /LPF Urine Test (NEGATIVE) COVID-19 (GHANSHYAM) (Negative) COVID-19 Clin Com Influenza Type A (ALVINO) Negative (Negative) Influenza Type B (ALVINO) Negative (Negative) Influenza A & B Note See Note 04/06/22 Range/Units 20:51 WBC (4.8-10.8) X10*3/uL RBC (4.20-5.50) X10*6/uL Hgb (12.0-16.0) g/dl Hct (37.0-47.0) % MCV (80.0-98.0) fL MCH (27.0-33.0) pg MCHC (31.0-35.0) g/dl RDW (11.0-16.0) % Plt Count (160-400) X10*3/uL MPV (9.4-12.3) fL Immature Gran % (Auto) (0.0-0.4) % Neut % (Auto) (45-73) % Lymph % (Auto) (20-40) % Bennett % (Auto) (2-11) % Eos % (Auto) (0-4) % Baso % (Auto) (0-2) % Lymph # (Auto) (1.2-4.9) X10*3/uL Bennett # (Auto) (0.1-1.2) X10*3/uL Eos # (Auto) (0.0-0.4) X10*3/uL Baso # (Auto) (0.0-0.2) X10*3/uL Abs Immat Gran (auto) (0.00-0.03) X10*3/uL Absolute Neuts (auto) (2.0-8.3) x10*3/uL Absolute Nucleated RBC (0.0-0.012) X10*3/uL Nucleated RBC % (auto) (0.0-0.2) /100WBC Sodium (135-145) mmol/L Potassium (3.3-5.1) mmol/L Chloride (96-108) mmol/L Carbon Dioxide (22-29) mmol/L Anion Gap (12-20) BUN (9-16) mg/dL Creatinine (0.5-1.4) mg/dL Estim Creat Clear Calc Estimated GFR Random Glucose (60-115) mg/dL Calcium (8.4-10.2) mg/dL Magnesium (1.6-2.6) mg/dL Total Bilirubin (0.0-1.0) mg/dL AST (5-31) U/L ALT (0-31) U/L Alkaline Phosphatase (39-117) U/L Total Protein (6.5-8.0) g/dL Albumin (3.5-5.0) g/dL TSH (0.32-4.0) uIU/mL Urine Color Urine Appearance Urine pH (5.0-8.0) Ur Specific [place] (1.005-1.025) Urine Protein (NEG-TRACE) MG/DL Urine Glucose (UA) (NEG) MG/DL Urine Ketones (NEG) MG/DL Urine Blood (NEG) Urine Nitrite (NEG) Ur Leukocyte Esterase (NEG) Urine RBC (0) /HPF Urine WBC (0-4) /HPF Ur Squamous Epith Cells /LPF Urine Bacteria /LPF Urine Test (NEGATIVE) COVID-19 (GHANSHYAM) Negative (Negative) COVID-19 Clin Com See Note Influenza Type A (ALVINO) (Negative) Influenza Type B (ALVINO) (Negative) Influenza A & B Note Imaging Data CT scan - head: Attestation: I personally reviewed and interpreted this imaging study as follows: Radiologist's impression: FINDINGS: There is no evidence of acute intracranial hemorrhage or territorial infarction. No abnormal mass effect or midline shift is seen. Garcia to white matter differentiation is well preserved. No extra-axial fluid collections are identified. The ventricles are normal in size. There is no abnormal attenuation within the brain parenchyma. The osseous structures and soft tissues are normal. The mastoid air cells and visualized portions of the paranasal sinuses are well aerated. ? CT/CT head/brain wo con IMPRESSION: No acute intracranial process seen. Discharge Plan Discharge Clinical Impression: Intermittent headache, Difficulty concentrating, Anxiety Patient Disposition: Home, Self-Care Instructions: General Headache (ED) Prescriptions: New lorazepam [Ativan] 1 mg tablet 1 mg PO Q8H PRN (Reason: anxiety) Qty: 14 0RF No Action lorazepam [Ativan] 0.5 mg tablet 0.5 mg PO TID PRN (Reason: anxiety) Qty: 10 0RF Rx Instructions: patient may ask for partial fill nitrofurantoin monohyd/m-cryst [Macrobid] 100 mg capsule 100 mg PO Q12H 7 Days Qty: 14 0RF Rx Instructions: must administer with a meal/food Referrals: Simi Lara NP [Primary Care Provider] - 2 days Print Language: Bahraini
[2022-04-06 21:05] LABS: UPreg QC Valid YES; Urine Pregnancy NEGATIVE (NEGATIVE)
[2022-04-06 21:07] LABS: Bacteria Urine 2+ /LPF; Squamous Epithelial Cell Urine 3+ /LPF; WBC Urine 0 /HPF (0-4)
[2022-04-06 21:16] LABS: Alanine Aminotransferase 14 U/L (0-31); Albumin Level 4.5 g/dL (3.5-5.0); Alkaline Phosphatase 59 U/L (39-117); Anion Gap 13 (12-20); Aspartate Amino Transferase 15 U/L (5-31); Bilirubin Total 1.3 mg/dL (0.0-1.0); Blood Urea Nitrogen 11 mg/dL (9-16); Carbon Dioxide 25 mmol/L (22-29); Chloride 107 mmol/L (96-108); Estimated Glomerular Filt Rate > 60; Glucose Random 91 mg/dL (60-115); Magnesium 1.9 mg/dL (1.6-2.6); Potassium 3.9 mmol/L (3.3-5.1); Sodium 141 mmol/L (135-145); Total Protein 7.5 g/dL (6.5-8.0)
[2022-04-06 21:20] LABS: COVID-19 Test Negative (Negative); IDNOW Serial# 55D5AD1C; Influenza A Negative (Negative); Influenza B2 Negative (Negative)
[2022-04-06 21:37] LABS: TSH reflex Free T4 2.35 uIU/mL (0.32-4.0)
[2022-04-06] MEDS: Acetaminophen 325 MG TABLET 975 MG PO (21:42)
[2022-04-09 03:24] LABS: Lyme Blot 1.54 index
[2022-04-09 10:01] LABS: Lyme Abs Screen POSITIVE
[2022-04-09 21:35] LABS: 18 KD (IgG) Band NON-REACTIVE; 23 KD (IgG) Band NON-REACTIVE; 23 KD (IgM) Band REACTIVE; 28 KD (IgG) Band NON-REACTIVE; 30 KD (IgG) Band NON-REACTIVE; 39 KD (IgM) Band NON-REACTIVE; 41 KD (IgM) Band NON-REACTIVE; 45 KD (IgG) Band NON-REACTIVE; 58 KD (IgG) Band NON-REACTIVE; 66 KD (IgG) Band NON-REACTIVE; 93 KD (IgG) Band NON-REACTIVE; Lyme IgG Blot Interp NEGATIVE (NEGATIVE); Lyme IgM Blot Interp NEGATIVE (NEGATIVE)
== END 2022-04-06 22:18 | disposition home or self-care (01) ==
PROVIDERS: Physician Assistant Medical; Emergency Provider Internal Medicine; PCP Nurse Practitioner Family
DX: R51.9 Headache, unspecified (principal); R11.2 Nausea with vomiting, unspecified; F41.1 Generalized anxiety disorder; F43.0 Acute stress reaction; Z20.822 Contact with and (suspected) exposure to COVID-19; Z79.899 Other long term (current) drug therapy
CPT/HCPCS: 36415; 70450; 80053; 81001; 81003; 81025; 83735; 84443; 85025; 86617; 86618; 87502; 87635; 99284

== ENCOUNTER 2022-04-14 20:14 | Emergency (ER) | payer OTHER, SELFPAY ==
[2022-04-14 20:49] VITALS: BP 132/77; PULSE 82; RESP 18; TEMP 36.7; O2SAT 100; BMI 27.4
[2022-04-14 21:42] LABS: MANUAL DIFF FLAG NO
[2022-04-14 21:45] LABS: Basophils Absolute Auto 0.1 X10*3/uL (0.0-0.2); Basophils Percent Auto 0.5 % (0-2); Eosinophils Absolute Auto 0.1 X10*3/uL (0.0-0.4); Eosinophils Percent Auto 1.2 % (0-4); Hematocrit 41.4 % (37.0-47.0); Hemoglobin 13.8 g/dl (12.0-16.0); Imm Gran Abs Auto 0.02 X10*3/uL (0.00-0.03); Imm Gran Pct Auto 0.2 % (0.0-0.4); Lymphocytes Absolute Auto 3.5 X10*3/uL (1.2-4.9); Lymphocytes Percent Auto 33.3 % (20-40); Mean Corpuscular HGB Conc 33.3 g/dl (31.0-35.0); Mean Corpuscular Hemoglobin 31.2 pg (27.0-33.0); Mean Corpuscular Volume 93.7 fL (80.0-98.0); Mean Platelet Volume 11.6 fL (9.4-12.3); Monocytes Absolute Auto 0.8 X10*3/uL (0.1-1.2); Monocytes Percent Auto 7.9 % (2-11); Neutrophils Percent Auto 56.9 % (45-73); Platelet Count 213 X10*3/uL (160-400); Red Blood Count 4.42 X10*6/uL (4.20-5.50); Red Cell Distribution Width 12.9 % (11.0-16.0); White Blood Count 10.6 X10*3/uL (4.8-10.8)
[2022-04-14 22:00] LABS: Alanine Aminotransferase 10 U/L (0-31); Albumin Level 4.1 g/dL (3.5-5.0); Alkaline Phosphatase 56 U/L (39-117); Anion Gap 11 (12-20); Aspartate Amino Transferase 14 U/L (5-31); Bilirubin Total 0.6 mg/dL (0.0-1.0); Blood Urea Nitrogen 17 mg/dL (9-16); Calcium 9.6 mg/dL (8.4-10.2); Carbon Dioxide 25 mmol/L (22-29); Chloride 111 mmol/L (96-108); Creatinine Clr Calc Pharmacy 100.1; Estimated Glomerular Filt Rate > 60; Glucose Random 103 mg/dL (60-115); Potassium 5.7 mmol/L (3.3-5.1); Sodium 141 mmol/L (135-145); Total Protein 6.9 g/dL (6.5-8.0)
--- NOTE | 2022-04-14 22:24 | ECG_ITS ---
Test Reason : K levels high Blood Pressure : / mmHG Vent. Rate : 064 BPM Atrial Rate : 064 BPM P-R Int : 140 ms QRS Dur : 088 ms QT Int : 386 ms P-R-T Axes : 064 050 035 degrees QTc Int : 398 ms Normal sinus rhythm Normal ECG When compared with ECG of 17-JAN-2022 21:11, No significant change was found Referred By: Imelda Ortiz Electronically Signed By:Kuldeep Cheung
--- NOTE | 2022-04-14 22:26 | ED_ITS ---
HPI - General Adult General Chief complaint: General Medical Stated complaint: High potassium/Flank pain Time Seen by Provider: 04/14/22 22:22 Source: patient Mode of arrival: ambulatory Limitations: no limitations History of Present Illness HPI narrative: being treated for lyme disease - taken two or three doses of doxy, also on atarax and lorazepam for anxiety has had lyme symptoms for the last several days - poor PO intake due to lyme and also doxy complaint: elevated K Onset (ago): day(s) (today ) Severity: mild Pain Consistency: constant Relieving factors: none Exacerbating factors: eating and medication Associated symptoms: malaise Treatments prior to arrival: none Related Data Previous Rx's Medication Instructions Recorded lorazepam 0.5 mg tablet (Ativan) 0.5 mg PO TID PRN #10 tab 03/19/21 nitrofurantoin 100 mg PO Q12H 7 Days #14 cap 01/15/22 monohydrate/macrocrystals 100 mg capsule (Macrobid) lorazepam 1 mg tablet (Ativan) 1 mg PO Q8H PRN #14 tab 04/06/22 doxycycline monohydrate 100 mg 100 mg PO BID 21 Days #42 cap 04/12/22 capsule Allergies Allergy/AdvReac Type Severity Reaction Status Date / Time No Known Allergies Allergy Unknown NOT Verified 01/17/22 19:27 APPLICABLE Review of Systems Review of Systems: Constitutional : No Fever, No Chills, No Fatigue, No Malaise ENT/Mouth : No sore throat, No Rhinorrhea Eyes: No Eye Pain, No Swelling, No Redness Cardiovascular : No Chest Pain, No SOB, No Dyspnea on Exertion, No Orthopnea, No Edema, No Palpitations Respiratory : No Cough, No Sputum, No Wheezing Gastrointestinal : pos Nausea, No Vomiting, No Diarrhea, No Constipation, No ab dominal Pain, No Hematochezia, No Melena Genitourinary : No Dysuria, No Urinary Frequency, No Hematuria, Musculoskeletal : No joint pain, pos Myalgias, No Joint Swelling Skin : No Skin Lesions, No rash Neuro : No Weakness, No Numbness, No Dizziness, No Headache Psych : pos Anxiety/Panic, No Depression Heme/Lymph: No Bruising, No Bleeding,No Lymphadenopathy Endocrine : No Polyuria, No Polydipsia All other systems reviewed and are negative PMFSH Past Medical History Attestation statement: The following information was validated with the patient. Medical History Anxiety delivery delivered Cholecystectomy planned Heart palpitations Lyme disease Social History Social History (Updated 04/14/22 @ 22:43 by Imelda Ortiz DO) Alcohol intake: never Patient Tobacco Use Status: Current everyday Tobacco user Use of substances other than those prescribed or required for medical reasons: No Advance Directives: No Advance Directives Information Provided: No Patient : No Physical Exam ED Vital Signs: Vital Signs - 24 hr 04/14/22 20:49 04/14/22 22:38 04/14/22 23:52 Temperature 98.1 F Pulse Rate 82 71 64 Respiratory Rate 18 16 25 H Blood Pressure 132/77 103/68 101/45 L Pulse Oximetry 100 100 100 BMI result Body Mass Index 27.4 Appearance: Alert. Oriented X3. No acute distress. Eyes: Pupils equal, round and reactive to light. ENT: Pharynx normal. Neck: Normal inspection. Neck supple. CVS: Normal heart rate and rhythm. Pulses normal. Respiratory: No respiratory distress. Breath sounds normal. Abdomen: Soft and non-tender. Skin: Skin warm and dry. Normal skin color. Normal skin turgor. Extremities: No lower extremity edema. No calf ttp Neuro: Oriented X 3. No motor deficit. No sensory deficit. Course Course Course Narrative: after hydration K 4.2 - stable for DC Medical Decision Making MDM Narrative Medical decision making narrative: 36 yo female with hx of anxiety found to have lyme disease started on doxy has taken a few doses has had poor PO intake told her K was 6.1 today - on recheck is is 5.7. Suspect dehydration - will obtain EKG, hydrate x 2L, lokelma can follow up with PCP. Cr normal UA ordered, nephritis seems unlikely at this time given normal Cr not on nephrotoxic agents at home. Lab Data Result diagrams: 04/14/22 21:38 04/15/22 01:02 Labs: Lab Results 04/14/22 04/14/22 04/15/22 Range/Units 21:38 21:38 01:02 WBC 10.6 (4.8-10.8) X10*3/uL RBC 4.42 (4.20-5.50) X10*6/uL Hgb 13.8 (12.0-16.0) g/dl Hct 41.4 (37.0-47.0) % MCV 93.7 (80.0-98.0) fL MCH 31.2 (27.0-33.0) pg MCHC 33.3 (31.0-35.0) g/dl RDW 12.9 (11.0-16.0) % Plt Count 213 (160-400) X10*3/uL MPV 11.6 (9.4-12.3) fL Immature Gran % (Auto) 0.2 (0.0-0.4) % Neut % (Auto) 56.9 (45-73) % Lymph % (Auto) 33.3 (20-40) % [place] % (Auto) 7.9 (2-11) % Eos % (Auto) 1.2 (0-4) % Baso % (Auto) 0.5 (0-2) % Lymph # (Auto) 3.5 (1.2-4.9) X10*3/uL [place] # (Auto) 0.8 (0.1-1.2) X10*3/uL Eos # (Auto) 0.1 (0.0-0.4) X10*3/uL Baso # (Auto) 0.1 (0.0-0.2) X10*3/uL Abs Immat Gran (auto) 0.02 (0.00-0.03) X10*3/uL Absolute Neuts (auto) 6.0 (2.0-8.3) x10*3/uL Absolute Nucleated RBC 0.000 (0.0-0.012) X10*3/uL Nucleated RBC % (auto) 0.0 (0.0-0.2) /100WBC Sodium 141 (135-145) mmol/L Potassium 5.7 H D 4.2 D (3.3-5.1) mmol/L Chloride 111 H (96-108) mmol/L Carbon Dioxide 25 (22-29) mmol/L Anion Gap 11 L (12-20) BUN 17 H D (9-16) mg/dL Creatinine 0.83 (0.5-1.4) mg/dL Estim Creat Clear Calc 100.1 Estimated GFR > 60 Random Glucose 103 (60-115) mg/dL Calcium 9.6 (8.4-10.2) mg/dL Total Bilirubin 0.6 (0.0-1.0) mg/dL AST 14 (5-31) U/L ALT 10 (0-31) U/L Alkaline Phosphatase 56 (39-117) U/L Total Protein 6.9 (6.5-8.0) g/dL Albumin 4.1 (3.5-5.0) g/dL ECG Data Attestation: I personally reviewed and interpreted this ECG as follows: Interpretation: Rate: 64 Rhythm: NSR [place]: normal Normal P waves. Normal PRANAY. Normal QRS complex. ST T wave : normal no JANELL qTC: normal prior studies: no acute ischemia The study has been interpreted contemporaneously by me. . Discharge Plan Discharge Clinical Impression: Acute hyperkalemia, Acute dehydration Patient Disposition: Home, Self-Care Instructions: Dehydration (ED), Hyperkalemia (ED) Additional Instructions: return to ED for any worsening symptoms or concerns follow up and have PCP recheck K in 2 days after IVF in ED - Potassium 4.2 Prescriptions: No Action lorazepam [Ativan] 0.5 mg tablet 0.5 mg PO TID PRN (Reason: anxiety) Qty: 10 0RF Rx Instructions: patient may ask for partial fill nitrofurantoin monohyd/m-cryst [Macrobid] 100 mg capsule 100 mg PO Q12H 7 Days Qty: 14 0RF Rx Instructions: must administer with a meal/food lorazepam [Ativan] 1 mg tablet 1 mg PO Q8H PRN (Reason: anxiety) Qty: 14 0RF doxycycline monohydrate 100 mg capsule 100 mg PO BID 21 Days Qty: 42 0RF Rx Instructions: Positive lyme Stand Alone Forms: Work/School Release
[2022-04-14 22:38] VITALS: BP 103/68; PULSE 71; RESP 16; O2SAT 100
[2022-04-14] MEDS: 0.9 % Sodium Chloride 1,000 ML 999 ML IVCONT ×2 (22:51→23:37)
[2022-04-14] MEDS: Sodium Zirconium Cyclosilicate 5 GM POWD.PACK PO (22:54)
[2022-04-14 23:52] VITALS: BP 101/45; PULSE 64; RESP 25; O2SAT 100
[2022-04-15 01:25] LABS: Potassium 4.2 mmol/L (3.3-5.1)
[2022-04-15 01:50] LABS: Appearance Urine CLEAR; Color Urine YELLOW; Glucose Urine UA NEG (NEG); Leukocyte Esterase Urine NEG (NEG); Nitrite Urine NEG (NEG); PH 5.5 (5.0-8.0); Specific Gravity - Urine >= 1.030 (1.005-1.025); Urine Blood NEG (NEG); Urine Ketones 15 MG/DL (NEG); Urine Protein NEG (NEG-TRACE)
[2022-04-15 01:56] LABS: UPreg QC Valid YES; Urine Pregnancy NEGATIVE (NEGATIVE)
[2022-04-15 02:01] VITALS: BP 101/61; PULSE 72; RESP 19; TEMP 36.6; O2SAT 100
== END 2022-04-15 02:09 | disposition home or self-care (01) ==
PROVIDERS: Emergency Provider Emergency Medicine; PCP Nurse Practitioner Family
DX: E87.5 Hyperkalemia (principal); A69.20 Lyme disease, unspecified; E86.0 Dehydration; F17.200 Nicotine dependence, unspecified, uncomplicated; Z71.6 Tobacco abuse counseling; Z79.899 Other long term (current) drug therapy
CPT/HCPCS: 36415; 80053; 81003; 81025; 84132; 85025; 93005; 96360; 99284

== ENCOUNTER 2022-04-24 15:38 | Emergency (ER) | payer OTHER, SELFPAY ==
[2022-04-24 15:45] VITALS: BP 144/77; PULSE 88; RESP 15; TEMP 36.7; O2SAT 99; BMI 27.4
--- NOTE | 2022-04-24 16:35 | ED.SKABFB ---
HPI - Skin/Abscess/Foreign Bdy General Chief complaint: Skin/Abscess/Foreign Body Stated complaint: Bleeding scab on back of head Time Seen by Provider: 04/24/22 16:35 Source: patient Mode of arrival: ambulatory Limitations: no limitations History of Present Illness HPI narrative: 36-year-old female no known medical history presents to the emergency department with complaints of bleeding to the back of her head in x1 day. Patient tells me she recently her hair, and the back of her head became itchy, she tells me she was itching the back of her head and she noticed that there is some blood on her fingers, she tells me it has not been bleeding a lot just a little bit. She denies numbness, tingling, chest pain, shortness of breath, fevers, chills, recent head trauma. MD complaint: lesion Onset (ago): day(s) Severity: mild Quality: burning Pain Consistency: constant Relieving factors: none Exacerbating factors: none Context: none Associated symptoms: denies other symptoms Treatments prior to arrival: none Related Data Previous Rx's Medication Instructions Recorded lorazepam 0.5 mg tablet (Ativan) 0.5 mg PO TID PRN #10 tab 03/19/21 nitrofurantoin 100 mg PO Q12H 7 Days #14 cap 01/15/22 monohydrate/macrocrystals 100 mg capsule (Macrobid) lorazepam 1 mg tablet (Ativan) 1 mg PO Q8H PRN #14 tab 04/06/22 doxycycline monohydrate 100 mg 100 mg PO BID 21 Days #42 cap 04/12/22 capsule Allergies Allergy/AdvReac Type Severity Reaction Status Date / Time No Known Allergies Allergy Unknown NOT Verified 01/17/22 19:27 APPLICABLE Review of Systems Review of Systems: Constitutional : No Weight loss, No Fever, No Chills, No Fatigue, No Malaise ENT/Mouth : No sore throat, No Rhinorrhea Eyes: No Eye Pain, No Swelling, No Redness Cardiovascular : No Chest Pain, No SOB, No Dyspnea on Exertion, No Orthopnea, No Edema, No Palpitations Respiratory : No Cough, No Sputum, No Wheezing Gastrointestinal : No Nausea, No Vomiting, No Diarrhea, No Constipation, No abdominal Pain, No Hematochezia, No Melena Genitourinary : No Dysuria, No Urinary Frequency, No Hematuria, Musculoskeletal : No joint pain, No Myalgias, No Joint Swelling Skin : + Skin Lesions, No rash Neuro : No Weakness, No Numbness, No Dizziness, No Headache Psych : No Anxiety/Panic, No Depression All other systems reviewed and are negative Yes all other systems are reviewed and are negative [facility] Past Medical History Attestation statement: The following information was validated with the patient. Source: old records reviewed and nursing notes reviewed Medical History Anxiety delivery delivered Cholecystectomy planned Heart palpitations Lyme disease Social History Social History Alcohol intake: never Patient Tobacco Use Status: Current everyday Tobacco user Advance Directives: No Advance Directives Information Provided: No Physical Exam Vital Signs: Vital Signs: Last Vital Signs Temp 98.0 F 04/24/22 15:45 Pulse 88 04/24/22 15:45 Resp 15 04/24/22 15:45 BP 144/77 H 04/24/22 15:45 Pulse Ox 99 04/24/22 15:45 BMI result Body Mass Index 27.4 Vital signs stable Appearance: Alert.? Oriented X3.? No acute distress.? Head: Normocephalic, atraumatic, no step-offs or deformities + small growth on head (images attached) Eyes: Pupils equal, round and reactive to light.? Neck: Normal inspection.? Neck supple.? CVS: Normal heart rate and rhythm.? Pulses normal.? Respiratory: No respiratory distress.? Breath sounds normal.? Abdomen: Soft and nontender.? Skin: Skin warm and dry.? Normal skin color.? Normal skin turgor.? Extremities: No lower extremity edema.? No calf ttp. 5/5 strength to bilateral upper and lower extremities Course Reevaluation(s) Reevaluation #1: Educated patient on plan, advised her to follow-up with Dermatology, nothing to be done acutely about this. Site is not bleeding. If that continues to bleed she should apply pressure to the area, apply anti a biotic ointment onto the area. Advised her to follow-up with his PCP and Dermatology. Comfortable w/ discharge home Time: 16:46 MDM - Skin/Abscess/Foreign Bdy MDM Narrative Medical decision making narrative: [id number] 36-year-old female presents with complaints of an itchy spot on the back of her head that has been bleeding x1 day. Physical examination significant for small skin growth to the head. Images attached in chart. Not currently bleeding. Appears to be a sebaceous cyst Plan at this time is to discharge patient home with Dermatology follow-up. Medical Records Attestation: I reviewed the patient's medical records. Lab Data Attestation: I reviewed the patient's lab results. Critical Care Time Critical Care Time Critical Care Time: No Discharge Plan Discharge Clinical Impression: Abnormal skin growth, Sebaceous cyst Patient Disposition: Home, Self-Care Additional Instructions: Take your medications as prescribed. If you were prescribed antibiotics today, it is important that you take your medication to their entirety, do not skip any doses, do not finish them early. Follow-up with your primary care provider this week. You can follow-up with Dermatology or General surgery for removal of this possible sebaceous cyst. Return to the emergency department with new or worsening symptoms. Such as fevers, chills, chest pain, shortness of breath, nausea, vomiting, dizziness, headache, vision changes, lethargy In case of emergency call 911 Please to not itch the area, you can apply bacitracin to the area. [facility] [address] [place] [address] Prescriptions: No Action lorazepam [Ativan] 0.5 mg tablet 0.5 mg PO TID PRN (Reason: anxiety) Qty: 10 0RF Rx Instructions: patient may ask for partial fill nitrofurantoin monohyd/m-cryst [Macrobid] 100 mg capsule 100 mg PO Q12H 7 Days Qty: 14 0RF Rx Instructions: must administer with a meal/food lorazepam [Ativan] 1 mg tablet 1 mg PO Q8H PRN (Reason: anxiety) Qty: 14 0RF doxycycline monohydrate 100 mg capsule 100 mg PO BID 21 Days Qty: 42 0RF Rx Instructions: Positive lyme Referrals: Wiley Do MD [Physician] - 2 weeks Simi Lara NP [Primary Care Provider] - 1 day
== END 2022-04-24 17:00 | disposition home or self-care (01) ==
PROVIDERS: Emergency Provider Internal Medicine; PCP Nurse Practitioner Family
DX: L72.3 Sebaceous cyst (principal)
CPT/HCPCS: 99282

== ENCOUNTER 2022-05-31 09:48 | Emergency (ER) | payer OTHER, SELFPAY ==
[2022-05-31 10:03] VITALS: BP 126/70; PULSE 89; RESP 18; TEMP 36.8; O2SAT 100; BMI 29.2
--- NOTE | 2022-05-31 10:31 | ED.GENADULT ---
HPI - General Adult General Chief complaint: Dental/Oral Stated complaint: dental issue Time Seen by Provider: 05/31/22 10:16 Source: patient Mode of arrival: ambulatory Limitations: no limitations History of Present Illness HPI narrative: 37 yold female presents to the ED for right toothache. patient states couple of days ago her right molar cracked after eating hard candy and ever since has had pain. patient states no neck pain/swelling, drooling, fever, chills, shortenss of breath, chest pain, or recent dental work Related Data Previous Rx's Medication Instructions Recorded lorazepam 0.5 mg tablet (Ativan) 0.5 mg PO TID PRN anxiety #10 tabs 03/19/21 nitrofurantoin 100 mg PO Q12H 7 days #14 caps 01/15/22 monohydrate/macrocrystals 100 mg capsule (Macrobid) lorazepam 1 mg tablet (Ativan) 1 mg PO Q8H PRN anxiety #14 tabs 04/06/22 doxycycline monohydrate 100 mg 100 mg PO BID 21 days #42 caps 04/12/22 capsule amoxicillin 875 mg-potassium 1 tab PO Q12H 10 days #20 tabs 05/31/22 clavulanate 125 mg tablet oxycodone 5 mg capsule 5 mg PO Q8H PRN pain 3 days #9 caps 05/31/22 Allergies Allergy/AdvReac Type Severity Reaction Status Date / Time No Known Allergies Allergy Unknown NOT Verified 01/17/22 19:27 APPLICABLE Review of Systems Review of Systems: Right lower molar pain. Yes all other systems are reviewed and are negative [facility] Past Medical History Medical History Anxiety delivery delivered Cholecystectomy planned Heart palpitations Lyme disease Social History Social History Alcohol intake: never Patient Tobacco Use Status: Current everyday Tobacco user Advance Directives: No Advance Directives Information Provided: No Physical Exam ED Vital Signs: Vital Signs - 24 hr 05/31/22 10:03 Temperature 98.3 F Pulse Rate 89 Respiratory Rate 18 Blood Pressure 126/70 Pulse Oximetry 100 Oxygen Delivery Method Room Air BMI result Body Mass Index 29.2 Const General: cooperative, healthy appearing, comfortable, no acute distress, well developed, alert, awake and Physically active Orientation/consciousness: oriented to time and patient oriented x3 HENAR Other: negative for facial or neck swelling. Head: Yes normal to inspection, Yes No palpable skull fracture present, Yes normocephalic and Yes atraumatic Teeth image: 1. cracked tooth with yellow collection. negative for trismus Eyes General: appearance normal, both eyes and all related structures Neck Neck: Yes normal visual inspection, Yes full ROM, Yes no lymphadenopathy, Yes no meningeal signs, Yes trachea midline, Yes supple, No anterior neck swelling and No tender Chest Chest palpation & inspection: normal inspection of the chest and normal palpation of entire chest wall Resp Effort & Inspection: normal respiratory effort and able to speak in complete sentences Auscultation: clear to auscultation bilaterally Cardio Jugular venous distension: no JVD Heart sounds: S1 normal heart sound present and S2 normal heart sound present GI Inspection: Yes normal to inspection and No abdominal wall ecchymosis Palpation (GI): Soft to palpation, not firm, nontender, no guarding and not rigid General: No CVA tenderness and Yes no CVA tenderness Back/Spine/Pelvis Back: no CVA tenderness, No CVA tenderness and No back tenderness Skin General skin exam: no rashes or lesions noted and elasticity normal Neuro General: oriented to time, patient oriented x3, gait normal and no meningeal signs Cranial nerves: Yes CN's II-XII intact bilaterally Extrem General: Yes normal to inspection and Yes full ROM Psych Appearance: grossly normal, well kempt and not disheveled Course Course Course Narrative: Patient well-appearing. Reevaluation(s) Reevaluation #1: History physical exam does not indicate Yogesh angina or retropharyngeal abscess. Patient to be discharged with pain medication and antibiotics. Patient states she has follow-up with dentist this upcoming Wednesday. Patient informed to return to the ED if pain worsens, develops jaw/neck swelling, drooling, shortness of breath, change voice, chest pain, shortness of breath, or any other concerning symptoms. Time: 10:36 Medical Decision Making [facility] Narrative Medical decision making narrative: Dental pain Discharge Plan Discharge Clinical Impression: Toothache, Cracked tooth Patient Disposition: Home, Self-Care Instructions: Toothache (ED) Additional Instructions: Return to ED sooner for any facial swelling, neck swelling, drooling, change in voice, chest pain, shortness of breath, worsening pain, or any other concerning symptoms. Recommend follow up with your dentists. Do not take oxycodone while driving, or while at work. Prescriptions: New amoxicillin-pot clavulanate 875-125 mg tablet 1 tab PO Q12H 10 Days Qty: 20 0RF oxycodone 5 mg capsule 5 mg PO Q8H PRN (Reason: pain) 3 Days Qty: 9 0RF Rx Instructions: Partial Fill upon patient request. No Action lorazepam [Ativan] 0.5 mg tablet 0.5 mg PO TID PRN (Reason: anxiety) Qty: 10 0RF Rx Instructions: patient may ask for partial fill nitrofurantoin monohyd/m-cryst [Macrobid] 100 mg capsule 100 mg PO Q12H 7 Days Qty: 14 0RF Rx Instructions: must administer with a meal/food lorazepam [Ativan] 1 mg tablet 1 mg PO Q8H PRN (Reason: anxiety) Qty: 14 0RF doxycycline monohydrate 100 mg capsule 100 mg PO BID 21 Days Qty: 42 0RF Rx Instructions: Positive lyme Stand Alone Forms: Work/School Release Interventions: ED Discharge Assessment Last Done: 05/31/22 10:52 Discharge Date/Time: 05/31/22 10:52 Print Language: Danish
[2022-05-31] MEDS: oxyCODONE HCl Immed Release 5 MG TABLET PO (10:50)
== END 2022-05-31 10:52 | disposition home or self-care (01) ==
PROVIDERS: Emergency Provider Emergency Medicine; PCP Nurse Practitioner Family
DX: K08.89 Other specified disorders of teeth and supporting structures (principal); K03.81 Cracked tooth; F17.200 Nicotine dependence, unspecified, uncomplicated
CPT/HCPCS: 99283

== ENCOUNTER 2022-06-06 15:12 | Emergency (ER) | payer OTHER, SELFPAY | END 2022-06-06 17:55 | disposition left against medical advice (07) | LOC: HO.ED 17:47 | PROVIDERS: Emergency Provider Emergency Medicine; PCP Nurse Practitioner Family | DX: N39.0 Urinary tract infection, site not specified (principal); F41.9 Anxiety disorder, unspecified ==

== ENCOUNTER 2022-07-21 11:46 | Emergency (ER) | payer OTHER, SELFPAY ==
[2022-07-21 11:49] VITALS: BP 118/62; PULSE 91; RESP 18; TEMP 36.8; O2SAT 98; BMI 28.3
--- NOTE | 2022-07-21 13:14 | ED.GENADULT ---
HPI - General Adult General Chief complaint: General Medical Stated complaint: L side of face numb Time Seen by Provider: 07/21/22 11:55 Source: patient Mode of arrival: ambulatory Limitations: no limitations History of Present Illness HPI narrative: 37-year-old female with a history of anxiety on hydroxyzine who presents to the ER for evaluation of intermittent left-sided facial numbness that comes and goes for the last several days. She states she has been under great deal of stress lately and is wondering if this may be anxiety related. She reports history of numbness and tingling in her fingers when her anxiety gets really bad. She has been taking her hydroxyzine at night only, it makes her drowsy during the day. She is not on any other medications for anxiety and does not talk to a counselor or therapist. She denies any weakness, numbness, tingling in her arms or legs. She states when she starts to ?stress out? about something the numbness gets worse. None at present. MD complaint: Intermittent left-sided facial numbness Onset (ago): day(s) Location: face Radiation: non-radiation Severity: mild Pain Consistency: intermittent Exacerbating factors: other (Stress) Associated symptoms: denies other symptoms Treatments prior to arrival: none Related Data Previous Rx's Medication Instructions Recorded lorazepam 0.5 mg tablet (Ativan) 0.5 mg PO TID PRN anxiety #10 tabs 03/19/21 nitrofurantoin 100 mg PO Q12H 7 days #14 caps 01/15/22 monohydrate/macrocrystals 100 mg capsule (Macrobid) lorazepam 1 mg tablet (Ativan) 1 mg PO Q8H PRN anxiety #14 tabs 04/06/22 doxycycline monohydrate 100 mg 100 mg PO BID 21 days #42 caps 04/12/22 capsule amoxicillin 875 mg-potassium 1 tab PO Q12H 10 days #20 tabs 05/31/22 clavulanate 125 mg tablet oxycodone 5 mg capsule 5 mg PO Q8H PRN pain 3 days #9 caps 05/31/22 Allergies Allergy/AdvReac Type Severity Reaction Status Date / Time No Known Allergies Allergy Unknown NOT Verified 01/17/22 19:27 APPLICABLE Review of Systems Review of Systems: Constitutional: No Fever, No Chills ENT/Mouth: No Swallowing Difficulty Eyes: No Eye Pain, No Swelling, No Redness, No vision changes Cardiovascular: No Chest Pain, No SOB, No Orthopnea, No Edema Respiratory: No Cough, No Sputum, No Wheezing, No dyspnea Gastrointestinal: No Nausea, No Vomiting, No abdominal Pain Musculoskeletal: No joint pain, No Myalgias Skin: No Skin Lesions, No rash Neuro: No Weakness, + Numbness, No Dizziness, No Headache Psych: + Anxiety/Panic, No Depression Heme/Lymph: No Bruising, No Lymphadenopathy PMFSH Past Medical History Medical History Anxiety delivery delivered Cholecystectomy planned Heart palpitations Lyme disease Social History Social History Alcohol intake: never Patient Tobacco Use Status: Current everyday Tobacco user Advance Directives: No Advance Directives Information Provided: Yes Physical Exam ED Vital Signs: Vital Signs - 24 hr 07/21/22 11:49 Temperature 98.2 F Pulse Rate 91 Respiratory Rate 18 Blood Pressure 118/62 Pulse Oximetry 98 Oxygen Delivery Method Room Air BMI result Body Mass Index 28.3 Appearance: Alert. Oriented X3. No acute distress. Eyes: Pupils equal, round and reactive to light. ENT: Pharynx normal. Normal TMs bilaterally Neck: Normal inspection. Neck supple. CVS: Normal heart rate and rhythm. Pulses normal. Respiratory: No respiratory distress. Breath sounds normal. Skin: Skin warm and dry. Normal skin color. Normal skin turgor. No rashes. Extremities: No lower extremity edema. Neuro/psych: Oriented X 3. No motor deficit. No sensory deficit. CN II-XII intact. Normal speech and cognition. Anxious. Course Course Course Narrative: 37-year-old female with a history of anxiety presents to the ER for evaluation of left-sided facial numbness that comes and goes, worse with stress. On examination she has no focal deficits, no current sensory deficits. Her cranial nerves are intact. She admits to her anxiety being poorly controlled. She only takes hydroxyzine at night and is not on maintenance medication. No current numbness in her left face. She is neurologically intact. Her symptoms are most likely due to poorly controlled anxiety. Will have her follow-up with her PCP for further evaluation. If symptoms persist or worsen she will call her doctor or come back to the ER for further evaluation. Stable for DC home. Discharge Plan Discharge Clinical Impression: Anxiety Patient Disposition: Home, Self-Care Instructions: Generalized Anxiety Disorder (ED) Additional Instructions: Follow-up with your primary care doctor. Recommend talking with her about SSRIs like Zoloft, Prozac or Lexapro Recommend following up with a counselor or therapist to help manage your anxiety If you develop new or worsening symptoms call 911 or come back to the ER for further evaluation. Prescriptions: No Action lorazepam [Ativan] 0.5 mg tablet 0.5 mg PO TID PRN (Reason: anxiety) Qty: 10 0RF Rx Instructions: patient may ask for partial fill nitrofurantoin monohyd/m-cryst [Macrobid] 100 mg capsule 100 mg PO Q12H 7 Days Qty: 14 0RF Rx Instructions: must administer with a meal/food lorazepam [Ativan] 1 mg tablet 1 mg PO Q8H PRN (Reason: anxiety) Qty: 14 0RF doxycycline monohydrate 100 mg capsule 100 mg PO BID 21 Days Qty: 42 0RF Rx Instructions: Positive lyme amoxicillin-pot clavulanate 875-125 mg tablet 1 tab PO Q12H 10 Days Qty: 20 0RF oxycodone 5 mg capsule 5 mg PO Q8H PRN (Reason: pain) 3 Days Qty: 9 0RF Rx Instructions: Partial Fill upon patient request. Referrals: Simi Lara NP [Primary Care Provider] - (poorly controlled anxiety, ?SSRI)
== END 2022-07-21 13:30 | disposition home or self-care (01) ==
PROVIDERS: Emergency Provider Emergency Medicine; PCP Nurse Practitioner Family
DX: F41.9 Anxiety disorder, unspecified (principal); Z79.899 Other long term (current) drug therapy; F17.200 Nicotine dependence, unspecified, uncomplicated
CPT/HCPCS: 99282

== ENCOUNTER 2022-07-24 15:12 | Emergency (ER) | payer OTHER, SELFPAY ==
[2022-07-24 16:12] VITALS: BP 104/59; PULSE 73; RESP 18; TEMP 36.4; O2SAT 100; BMI 27.4
[2022-07-25 00:59] VITALS: BP 105/55; PULSE 59; RESP 16; TEMP 36.4; O2SAT 96
--- NOTE | 2022-07-25 01:29 | ED_ITS ---
HPI - Headache General Chief Complaint: Headache Stated Complaint: headaches/dizziness Time Seen by Provider: 07/25/22 01:13 Source: patient Mode of arrival: ambulatory Limitations: no limitations History of Present Illness HPI Narrative: 37-year-old female who presents emergency department for evaluation of headache x2 days, nausea with occasional vomiting and dizziness. The patient states she has a history of anxiety and was taking hydroxyzine without any relief for symptoms. Her prescribing provider started her on Zoloft 5 mg daily. She states she started taking this medication 2 days prior. She states that she took the 1st dose at around 10:00 and that around 12:00 she had a gradual onset of headache. She states that the headache is been intermittent. The headache is located on the left side of her head and she describes it as soreness which is 4/10 at its worst. She has had associated nausea. She states she vomited once yesterday morning. She states she has noted intermittent room spinning as well. She states that she rarely gets headaches. She had a CT scan on 04/06/2022 which revealed no acute intracranial process. She denied fever, chills, rhinorrhea, sore throat. She states she has occasional cough. She denied chest pain, shortness of breath. She did have 1-2 episodes of diarrhea since starting Zoloft. Related Data Previous Rx's Medication Instructions Recorded lorazepam 0.5 mg tablet (Ativan) 0.5 mg PO TID PRN anxiety #10 tabs 03/19/21 nitrofurantoin 100 mg PO Q12H 7 days #14 caps 01/15/22 monohydrate/macrocrystals 100 mg capsule (Macrobid) lorazepam 1 mg tablet (Ativan) 1 mg PO Q8H PRN anxiety #14 tabs 04/06/22 doxycycline monohydrate 100 mg 100 mg PO BID 21 days #42 caps 04/12/22 capsule amoxicillin 875 mg-potassium 1 tab PO Q12H 10 days #20 tabs 05/31/22 clavulanate 125 mg tablet oxycodone 5 mg capsule 5 mg PO Q8H PRN pain 3 days #9 caps 05/31/22 promethazine 25 mg tablet 25 mg PO Q6H PRN nausea and 07/25/22 vomiting #20 tabs Allergies Allergy/AdvReac Type Severity Reaction Status Date / Time No Known Allergies Allergy Unknown NOT Verified 07/24/22 16:12 APPLICABLE Review of Systems Review of Systems: Yes all other systems are reviewed and are negative [facility] Past Medical History [facility] Narrative: Social history: She denies alcohol and drug use. She smokes 1 pack of cigarettes per day x4 years. She works at [employer]. Medical History Anxiety delivery delivered Cholecystectomy planned Heart palpitations Lyme disease Social History Social History Alcohol intake: never Patient Tobacco Use Status: Current everyday Tobacco user Advance Directives: No Physical Exam Vital Signs: Vital Signs: Last Vital Signs Temp 97.6 F 07/25/22 00:59 Pulse 59 07/25/22 00:59 Resp 16 07/25/22 00:59 BP 105/55 L 07/25/22 00:59 Pulse Ox 96 07/25/22 00:59 O2 Del Method 07/25/22 00:59 BMI result Body Mass Index 27.4 Const: General: cooperative and no acute distress Orientation/consciousness: oriented to person and oriented to place Limitations: no limitations HEENT: Head: Yes normal to inspection, Yes normocephalic and Yes atraumatic Ears: external ears normal General nose exam: Normal external nose present Face and sinus: Yes normal facial exam Mouth: Normal oral and palatal mucosa present Throat: Yes posterior oropharynx normal Eyes: General: appearance normal, both eyes and all related structures Pupils: Equal, round and reactive pupils present Neck: Neck: Yes normal visual inspection, Yes no lymphadenopathy, Yes trachea midline and Yes supple Chest: Chest palpation & inspection: normal inspection of the chest and normal palpation of entire chest wall Resp: Effort & Inspection: normal respiratory effort and able to speak in complete sentences Auscultation: clear to auscultation bilaterally Cardio: Rate: regular rate Rhythm: regular rhythm Heart sounds: S1 normal heart sound present, S2 normal heart sound present and no murmurs GI: Inspection: Yes normal to inspection Palpation (GI): Soft to palpation, nontender and no guarding Auscultation: normal bowel sounds : General: Yes no CVA tenderness Back/Spine/Pelvis: Back: no CVA tenderness Skin: General skin exam: no rashes or lesions noted Neuro: General: oriented to person and oriented to place Cranial nerves: Yes CN's II-XII intact bilaterally and Yes Equal, round and reactive pupils present Cognition (Neuro): normal cognition Motor exam (neuro): 5/5 motor strength present throughout Extrem: General: Yes normal to inspection Psych: Appearance: grossly normal Speech and movement: Normal speech and movement present Affect: normal affect Attitude: cooperative Thought process: Normal thought process present Thought content: Normal thought content present Course Course Course Narrative: 37-year-old female who presents emergency department for evaluation of intermittent left-sided headache, nausea, 1 episode of vomiting and 2 episodes of diarrhea with symptoms beginning 2 days prior after starting Zoloft 5 mg once a day for her anxiety. The patient's vital signs were normal. The patient's examination was unremarkable. I do believe that these symptoms are a side effect of the patient's Zoloft however she has only been on this medication for 2 days. I discuss treating her symptoms to see if she can continue taking Zoloft and the patient agreed with this plan. Patient was advised to take Tylenol 1000 mg every 4-6 hours as needed for headache. She was prescribed Phenergan (promethazine) 25 mg 1 pill every 6 hours as needed for nausea and vomiting.. She was given printed and verbal instructions and discharged home. Discharge Plan Discharge Clinical Impression: Headache, Nausea, Dizziness Patient Disposition: Home, Self-Care Additional Instructions: At this time, I believe that your symptoms are probably a side effect of Zoloft. I want to treat your symptoms to see if you can continue to stay on Zoloft since I think Zoloft would help with your anxiety. Take Phenergan (promethazine) 25 mg pills, 1 pill every 6 hours as needed for nausea and vomiting. Take Tylenol (acetaminophen) 500 mg pills, 2 pills every 4 to 6 hours as needed for pain. If you continue to have these symptoms despite taking these medications then you should discuss with your prescribing provider whether you should continue Zoloft Follow-up with your doctor in 2 days. Please return to the emergency department if your symptoms get worse or if you develop any symptoms that are concerning to you. Prescriptions: New promethazine 25 mg tablet 25 mg PO Q6H PRN (Reason: nausea and vomiting) Qty: 20 0RF No Action lorazepam [Ativan] 0.5 mg tablet 0.5 mg PO TID PRN (Reason: anxiety) Qty: 10 0RF Rx Instructions: patient may ask for partial fill nitrofurantoin monohyd/m-cryst [Macrobid] 100 mg capsule 100 mg PO Q12H 7 Days Qty: 14 0RF Rx Instructions: must administer with a meal/food lorazepam [Ativan] 1 mg tablet 1 mg PO Q8H PRN (Reason: anxiety) Qty: 14 0RF doxycycline monohydrate 100 mg capsule 100 mg PO BID 21 Days Qty: 42 0RF Rx Instructions: Positive lyme amoxicillin-pot clavulanate 875-125 mg tablet 1 tab PO Q12H 10 Days Qty: 20 0RF oxycodone 5 mg capsule 5 mg PO Q8H PRN (Reason: pain) 3 Days Qty: 9 0RF Rx Instructions: Partial Fill upon patient request.
== END 2022-07-25 01:44 | disposition home or self-care (01) ==
PROVIDERS: Emergency Provider Emergency Medicine Emergency Medical Services; PCP Nurse Practitioner Family
DX: R51.9 Headache, unspecified (principal); R11.0 Nausea; R42 Dizziness and giddiness; F17.200 Nicotine dependence, unspecified, uncomplicated; Z79.899 Other long term (current) drug therapy
CPT/HCPCS: 99283; 99284

== ENCOUNTER 2022-07-25 11:38 | Emergency (ER) | payer OTHER, SELFPAY ==
--- NOTE | ~2022-07-25 | CT_ITS ---
EXAMINATION: CT HEAD WITHOUT CONTRAST CLINICAL INFORMATION: Headaches. COMPARISON: CT head 04/06/2022 TECHNIQUE: Contiguous axial imaging was performed from the skull base to vertex without intravenous administration of contrast. Coronal and sagittal reformatted images are performed at the CT scanner. [This CT examination was performed using dose optimization techniques as appropriate, variously including the following: *Automated exposure control *Adjustment of mA and/or kV according to patient size (this includes techniques or standardized protocols for targeted exams where dose is matched to indication/reason for exam; i.e. extremities or head) *Use of iterative reconstruction technique] DLP: 614 mGy-cm. FINDINGS: There is no evidence of acute intracranial hemorrhage or territorial infarction. No abnormal mass-effect or midline shift is seen. Garcia to white matter differentiation is well preserved. No extra-axial fluid collections are identified. The ventricles are normal in size. There is no abnormal attenuation within the brain parenchyma. There is no osseous abnormality. The mastoid air cells and visualized portions of the paranasal sinuses are well-aerated. CT/CT head/brain wo IV con IMPRESSION: No acute intracranial pathology.
[2022-07-25 11:48] VITALS: BP 145/80; PULSE 95; RESP 20; TEMP 36.2; O2SAT 99; BMI 27.4
[2022-07-25 12:30] LABS: MANUAL DIFF FLAG NO
[2022-07-25 12:33] LABS: Basophils Percent Auto 0.4 % (0-2); Eosinophils Absolute Auto 0.1 X10*3/uL (0.0-0.4); Eosinophils Percent Auto 1.5 % (0-4); Hematocrit 39.6 % (37.0-47.0); Hemoglobin 13.4 g/dl (12.0-16.0); Imm Gran Abs Auto 0.02 X10*3/uL (0.00-0.03); Imm Gran Pct Auto 0.3 % (0.0-0.4); Lymphocytes Absolute Auto 2.2 X10*3/uL (1.2-4.9); Lymphocytes Percent Auto 31.4 % (20-40); Mean Corpuscular HGB Conc 33.8 g/dl (31.0-35.0); Mean Corpuscular Hemoglobin 30.7 pg (27.0-33.0); Mean Corpuscular Volume 90.8 fL (80.0-98.0); Mean Platelet Volume 10.6 fL (9.4-12.3); Monocytes Absolute Auto 0.6 X10*3/uL (0.1-1.2); Monocytes Percent Auto 9.3 % (2-11); Neutrophils Absolute Auto 3.9 x10*3/uL (2.0-8.3); Neutrophils Percent Auto 57.1 % (45-73); Platelet Count 217 X10*3/uL (160-400); Red Blood Count 4.36 X10*6/uL (4.20-5.50); Red Cell Distribution Width 12.9 % (11.0-16.0); White Blood Count 6.9 X10*3/uL (4.8-10.8)
[2022-07-25 13:06] LABS: Alanine Aminotransferase 12 U/L (0-31); Albumin Level 4.1 g/dL (3.5-5.0); Alkaline Phosphatase 49 U/L (39-117); Anion Gap 13 (12-20); Aspartate Amino Transferase 14 U/L (5-31); Bilirubin Direct 0.4 mg/dL (0.0-0.5); Bilirubin Total 1.5 mg/dL (0.0-1.0); Blood Urea Nitrogen 11 mg/dL (9-16); Calcium 8.8 mg/dL (8.4-10.2); Carbon Dioxide 24 mmol/L (22-29); Chloride 106 mmol/L (96-108); Creatinine Clr Calc Pharmacy 109.7; Estimated Glomerular Filt Rate > 60; Glucose Random 90 mg/dL (60-115); Lipase 7 U/L (8-78); Potassium 4.1 mmol/L (3.3-5.1); Sodium 139 mmol/L (135-145); Total Protein 6.5 g/dL (6.5-8.0)
[2022-07-25 14:54] VITALS: BP 127/70; PULSE 86
[2022-07-25 14:55] VITALS: BP 123/75; PULSE 115; RESP 16; O2SAT 100
[2022-07-25 14:57] VITALS: BP 123/75; BP 123/84; PULSE 114; PULSE 97
--- NOTE | 2022-07-25 14:59 | PC.NURSE ---
PT STATES FEELING ANXIOUS AT THIS TIME. ORTHOS NEG, DENIES DIZZINESS THROUGHOUT. STANDING STEADILY AND INDEPENDENTLY WITH NO ISSUE.
--- NOTE | 2022-07-25 15:38 | ECG_ITS ---
Test Reason : DIZZINESS Blood Pressure : / mmHG Vent. Rate : 068 BPM Atrial Rate : 068 BPM P-R Int : 130 ms QRS Dur : 086 ms QT Int : 384 ms P-R-T Axes : 065 048 034 degrees QTc Int : 408 ms Normal sinus rhythm Normal ECG When compared with ECG of 14-APR-2022 23:37, No significant change was found Referred By: Jono Ricketts Electronically Signed By:TRICIA ALAS
[2022-07-25] MEDS: LORazepam 1 MG TABLET PO (15:51)
[2022-07-25] MEDS: Ondansetron ODT 4 MG TAB.RAPDIS TRANSLINGU (15:51)
--- NOTE | 2022-07-25 21:10 | ED_ITS ---
HPI - Dizziness General Chief Complaint: Dizziness Stated Complaint: Dizziness Time Seen by Provider: 07/25/22 14:17 History of Present Illness HPI Narrative: patient complains of feeling dizzy with a mild headache for the past 2 days described as some feeling of lightheadedness as occasionally some feelings of motion or vertigo The dizziness coincided with starting Zoloft 3 days ago for anxiety She is not dizzy at this moment in time, she has no chest pain no palpitations no shortness of breath no confusion no fainting or feeling faint Related Data Previous Rx's Medication Instructions Recorded lorazepam 0.5 mg tablet (Ativan) 0.5 mg PO TID PRN anxiety #10 tabs 03/19/21 nitrofurantoin 100 mg PO Q12H 7 days #14 caps 01/15/22 monohydrate/macrocrystals 100 mg capsule (Macrobid) lorazepam 1 mg tablet (Ativan) 1 mg PO Q8H PRN anxiety #14 tabs 04/06/22 doxycycline monohydrate 100 mg 100 mg PO BID 21 days #42 caps 04/12/22 capsule amoxicillin 875 mg-potassium 1 tab PO Q12H 10 days #20 tabs 05/31/22 clavulanate 125 mg tablet oxycodone 5 mg capsule 5 mg PO Q8H PRN pain 3 days #9 caps 05/31/22 lorazepam 1 mg tablet (Ativan) 1 mg PO BID PRN anxiety #10 tabs 07/25/22 lorazepam 1 mg tablet (Ativan) 1 mg PO BID PRN anxiety #10 tabs 07/25/22 promethazine 25 mg tablet 25 mg PO Q6H PRN nausea and 07/25/22 vomiting #20 tabs Allergies Allergy/AdvReac Type Severity Reaction Status Date / Time No Known Allergies Allergy Unknown NOT Verified 07/24/22 16:12 APPLICABLE Review of Systems Review of Systems: positive for headache and dizziness Negatives are no fever no chills no fainting no feeling faint no confusion no neck pain no stiff neck no chest pain no shortness of breath no palpitations no abdominal pain no nausea or vomiting no extremity pains no calf pain or swelling no numbness weakness or tingling no loss of motor strength no loss of sensation no rash Yes all other systems are reviewed and are negative PMFSH Past Medical History Source: nursing notes reviewed Medical History Anxiety delivery delivered Cholecystectomy planned Heart palpitations Lyme disease Social History Social History Alcohol intake: never Patient Tobacco Use Status: Current everyday Tobacco user Use of substances other than those prescribed or required for medical reasons: No Advance Directives: No Advance Directives Information Provided: No Physical Exam Vital Signs: Vital Signs: Last Vital Signs Temp 97.2 F 07/25/22 11:48 Pulse 114 H 07/25/22 14:57 Resp 16 07/25/22 14:55 BP 123/84 07/25/22 14:57 Pulse Ox 100 07/25/22 14:55 O2 Del Method 07/25/22 14:55 BMI result Body Mass Index 27.4 general appearance is no acute distress Head is normocephalic atraumatic The ears are normal Eyes pupils equal round reactive to light extraocular motions are intact The pharynx is clear moist mucous membranes Neck is supple Respiratory no distress The chest is clear to auscultation bilateral Heart no murmur Abdomen soft nontender Extremities full range of motion x4 without any pedal edema No calf swelling or tenderness Skin no rash Neuro gait and balance are normal, interaction both expression and comprehension are normal, cranial nerves 2-12 intact as tested, motor is 5/5 x4, cerebellar exam is normal, she can do finger to nose easily Course Course Course Narrative: CT was negative for any bleed or stroke Labs did not reveal any acute abnormality, patient remains comfortable and stable and asymptomatic throughout ER visit She is informed that dizziness is a very common side effect from Zoloft and to follow with the doctor to discuss these likely side effects and she was discharged ambulating easily and comfortable without any symptom at this time MDM - Dizziness Lab Data Attestation: I reviewed the patient's lab results. Result diagrams: 07/25/22 12:26 07/25/22 12:26 Labs: Lab Results 07/25/22 07/25/22 Range/Units 12:26 12:26 WBC 6.9 (4.8-10.8) X10*3/uL RBC 4.36 (4.20-5.50) X10*6/uL Hgb 13.4 (12.0-16.0) g/dl Hct 39.6 (37.0-47.0) % MCV 90.8 (80.0-98.0) fL MCH 30.7 (27.0-33.0) pg MCHC 33.8 (31.0-35.0) g/dl RDW 12.9 (11.0-16.0) % Plt Count 217 (160-400) X10*3/uL MPV 10.6 (9.4-12.3) fL Immature Gran % (Auto) 0.3 (0.0-0.4) % Neut % (Auto) 57.1 (45-73) % Lymph % (Auto) 31.4 (20-40) % [place] % (Auto) 9.3 (2-11) % Eos % (Auto) 1.5 (0-4) % Baso % (Auto) 0.4 (0-2) % Lymph # (Auto) 2.2 (1.2-4.9) X10*3/uL [place] # (Auto) 0.6 (0.1-1.2) X10*3/uL Eos # (Auto) 0.1 (0.0-0.4) X10*3/uL Baso # (Auto) 0.0 (0.0-0.2) X10*3/uL Abs Immat Gran (auto) 0.02 (0.00-0.03) X10*3/uL Absolute Neuts (auto) 3.9 (2.0-8.3) x10*3/uL Absolute Nucleated RBC 0.000 (0.0-0.012) X10*3/uL Nucleated RBC % (auto) 0.0 (0.0-0.2) /100WBC Sodium 139 (135-145) mmol/L Potassium 4.1 (3.3-5.1) mmol/L Chloride 106 (96-108) mmol/L Carbon Dioxide 24 (22-29) mmol/L Anion Gap 13 (12-20) BUN 11 (9-16) mg/dL Creatinine 0.75 (0.5-1.4) mg/dL Estim Creat Clear Calc 109.7 Estimated GFR > 60 Random Glucose 90 (60-115) mg/dL Calcium 8.8 D (8.4-10.2) mg/dL Total Bilirubin 1.5 H (0.0-1.0) mg/dL Direct Bilirubin 0.4 (0.0-0.5) mg/dL AST 14 (5-31) U/L ALT 12 (0-31) U/L Alkaline Phosphatase 49 (39-117) U/L Total Protein 6.5 (6.5-8.0) g/dL Albumin 4.1 (3.5-5.0) g/dL Lipase 7 L (8-78) U/L Discharge Plan Discharge Clinical Impression: Medication side effects, Dizziness Patient Disposition: Home, Self-Care Additional Instructions: our tests today including the CT did not show any worrisome conditions, EKG did not show any heart attack or any sign of any arrhythmia or any disorder Head CT was normal with no mass or bleeding or any abnormality Blood tests there was no evidence of anemia Incidental finding which has nothing to do with today's complaint showed a bilirubin that was mildly elevated, this is something you would follow with primary doctor and he would repeat the test The most likely reason for your dizziness is Zoloft can cause dizziness when it is for started, they do recommend continuing the Zoloft as the dizziness will usually resolve Most important let the prescribing doctor know this is happening and see if he agrees agrees that you should continue the Zoloft Return any time any worse condition or any concerns Prescriptions: New lorazepam [Ativan] 1 mg tablet 1 mg PO BID PRN (Reason: anxiety) Qty: 10 0RF lorazepam [Ativan] 1 mg tablet 1 mg PO BID PRN (Reason: anxiety) Qty: 10 0RF No Action lorazepam [Ativan] 0.5 mg tablet 0.5 mg PO TID PRN (Reason: anxiety) Qty: 10 0RF Rx Instructions: patient may ask for partial fill nitrofurantoin monohyd/m-cryst [Macrobid] 100 mg capsule 100 mg PO Q12H 7 Days Qty: 14 0RF Rx Instructions: must administer with a meal/food lorazepam [Ativan] 1 mg tablet 1 mg PO Q8H PRN (Reason: anxiety) Qty: 14 0RF doxycycline monohydrate 100 mg capsule 100 mg PO BID 21 Days Qty: 42 0RF Rx Instructions: Positive lyme amoxicillin-pot clavulanate 875-125 mg tablet 1 tab PO Q12H 10 Days Qty: 20 0RF oxycodone 5 mg capsule 5 mg PO Q8H PRN (Reason: pain) 3 Days Qty: 9 0RF Rx Instructions: Partial Fill upon patient request. promethazine 25 mg tablet 25 mg PO Q6H PRN (Reason: nausea and vomiting) Qty: 20 0RF Interventions: ED Discharge Assessment Last Done: 07/25/22 18:00 Discharge Date/Time: 07/25/22 18:00
== END 2022-07-25 18:00 | disposition home or self-care (01) ==
PROVIDERS: Emergency Provider Emergency Medicine; PCP Nurse Practitioner Family
DX: R42 Dizziness and giddiness (principal); T43.225A Adverse effect of selective serotonin reuptake inhibitors, initial encounter; Y92.9 Unspecified place or not applicable
CPT/HCPCS: 36415; 70450; 80048; 80076; 83690; 85025; 93005; 99284

== ENCOUNTER 2022-08-01 08:37 | Emergency (ER) | payer OTHER, SELFPAY ==
[2022-08-01 08:49] VITALS: BP 128/69; PULSE 72; RESP 19; TEMP 36.6; O2SAT 100; BMI 27.4
--- NOTE | 2022-08-01 11:27 | ED_ITS ---
HPI - Nausea/Vomiting/Diarrhea General Chief complaint: Nausea/Vomiting/Diarrhea Stated complaint: lightheaded/nausea Time Seen by Provider: 08/01/22 11:25 Source: patient Mode of arrival: ambulatory Limitations: no limitations History of Present Illness HPI Narrative: 37-year-old female past medical history significant for anxiety, palpitations, Lyme disease presenting to the emergency department with complaints of nausea, vomiting, diarrhea since last night. Patient reports that this started suddenly, she reports she has not been able to eat or keep anything down, tells me her vomit is completely yellow , no blood. Tells me diarrhea is liquid/very soft, without blood. Patient tells me she feels very nauseous and lightheaded. She tells me that people at work are sick with similar symptoms. Denies any recent antibiotic use, foreign travel. Has not been drinking many fluids. Denies fevers, chills, chest pain, shortness of breath, abdominal pain, vision changes, headache. MD elicited complaint: nausea, vomiting and diarrhea Onset (ago): day(s) (2) Description of vomiting: watery and bilious Description of diarrhea: watery Associated nausea: Yes Associated abdominal pain: No Location of pain: none Exacerbating factors: none Relieving factors: none Associated symptoms: weakness and other ( Lightheadedness) Related Data Previous Rx's Medication Instructions Recorded lorazepam 0.5 mg tablet (Ativan) 0.5 mg PO TID PRN anxiety #10 tabs 03/19/21 nitrofurantoin 100 mg PO Q12H 7 days #14 caps 01/15/22 monohydrate/macrocrystals 100 mg capsule (Macrobid) lorazepam 1 mg tablet (Ativan) 1 mg PO Q8H PRN anxiety #14 tabs 04/06/22 doxycycline monohydrate 100 mg 100 mg PO BID 21 days #42 caps 04/12/22 capsule amoxicillin 875 mg-potassium 1 tab PO Q12H 10 days #20 tabs 05/31/22 clavulanate 125 mg tablet oxycodone 5 mg capsule 5 mg PO Q8H PRN pain 3 days #9 caps 05/31/22 lorazepam 1 mg tablet (Ativan) 1 mg PO BID PRN anxiety #10 tabs 07/25/22 lorazepam 1 mg tablet (Ativan) 1 mg PO BID PRN anxiety #10 tabs 07/25/22 promethazine 25 mg tablet 25 mg PO Q6H PRN nausea and 07/25/22 vomiting #20 tabs ondansetron 4 mg disintegrating 4 mg PO Q6H PRN nausea and 08/01/22 tablet vomiting #14 tabs Allergies Allergy/AdvReac Type Severity Reaction Status Date / Time No Known Allergies Allergy Unknown NOT Verified 07/24/22 16:12 APPLICABLE Review of Systems Review of Systems: Constitutional : No Weight loss, No Fever, No Chills, + Fatigue, + Malaise ENT/Mouth : No sore throat, No Rhinorrhea Eyes: No Eye Pain, No Swelling, No Redness Cardiovascular : No Chest Pain, No SOB, No Dyspnea on Exertion, No Orthopnea, No Edema, No Palpitations Respiratory : No Cough, No Sputum, No Wheezing Gastrointestinal : + Nausea, + Vomiting, + Diarrhea, No Constipation, No abdominal Pain, No Hematochezia, No Melena Genitourinary : No Dysuria, No Urinary Frequency, No Hematuria, Musculoskeletal : No joint pain, No Myalgias, No Joint Swelling Skin : No Skin Lesions, No rash Neuro : + Weakness, No Numbness, + Dizziness, No Headache Psych : No Anxiety/Panic, No Depression All other systems reviewed and are negative Yes all other systems are reviewed and are negative Gastrointestinal: Gastrointestinal: Reports nausea PMFSH Past Medical History Attestation statement: The following information was validated with the patient. Source: old records reviewed and nursing notes reviewed Medical History Anxiety delivery delivered Cholecystectomy planned Heart palpitations Lyme disease Social History Social History Alcohol intake: never Patient Tobacco Use Status: Current everyday Tobacco user Advance Directives: No Advance Directives Information Provided: No Physical Exam Vital Signs: Vital Signs: Last Vital Signs Temp 98 F 08/01/22 08:49 Pulse 72 08/01/22 08:49 Resp 19 08/01/22 08:49 BP 128/69 08/01/22 08:49 Pulse Ox 100 08/01/22 08:49 O2 Del Method 08/01/22 08:49 BMI result Body Mass Index 27.4 vss Appearance: Alert.? Oriented X3.? No acute distress.? Head: Normocephalic, atraumatic, no step-offs or deformities Eyes: Pupils equal, round and reactive to light.? ENT: Pharynx normal.? Neck: Normal inspection.? Neck supple.? CVS: Normal heart rate and rhythm.? Pulses normal.? Respiratory: No respiratory distress.? Breath sounds normal.? Abdomen: Soft and nontender.? Skin: Skin warm and dry.? Normal skin color.? Normal skin turgor.? Extremities: No lower extremity edema.? No calf ttp. 5/5 strength to bilateral upper and lower extremities Neuro: Oriented X 3.? No motor deficit.? No sensory deficit. CN 2-12 intact . Normal [id number], clmu-kk-[id number], steady tandem gait with normal coordination. Patient has normal rapid alternating movements, normal proprioception to upper and lower extremities. Course Reevaluation(s) Reevaluation #1: CBC within normal limits. Chemistry with no acute electrolyte abnormalities. urine clean. COVID negative. [facility] Advised to return with new or worsening symptoms. Likely diagnosis is viral infection. Time: 12:53 MDM - Nausea/Vomiting/Diarrhea MDM Narrative Medical decision making narrative: 1129 37-year-old female presents with sudden-onset nausea, vomiting, diarrhea, malaise, fatigue, weakness. Patient tells me it started last nights. Reports close sick contacts. Physical examination is benign. No acute findings. Normal neuro exam, normal cerebellar function. NIH stroke scale of 0, GCS of 15. Patient's lightheadedness likely secondary to dehydration, electrolyte abnormalities. I do not suspect stroke, posterior stroke on this patient. Nausea, vomiting, diarrhea likely viral in origin. Patient denies any recent antibiotic use, or travel, unlikely that this is C diff or infectious diarrhea. No abdominal pain on exam, no signs of acute abdomen. Plan at this time is to obtain basic labs, urine, COVID test. Medical Records Attestation: I reviewed the patient's medical records. Lab Data Attestation: I reviewed the patient's lab results. Result diagrams: 08/01/22 11:31 08/01/22 11:31 Labs: Lab Results 08/01/22 08/01/22 08/01/22 Range/Units 11:31 11:31 11:31 WBC 10.5 (4.8-10.8) X10*3/uL RBC 4.30 (4.20-5.50) X10*6/uL Hgb 13.3 (12.0-16.0) g/dl Hct 39.7 (37.0-47.0) % MCV 92.3 (80.0-98.0) fL MCH 30.9 (27.0-33.0) pg MCHC 33.5 (31.0-35.0) g/dl RDW 13.2 (11.0-16.0) % Plt Count 199 (160-400) X10*3/uL MPV 11.5 (9.4-12.3) fL Immature Gran % (Auto) 0.2 (0.0-0.4) % Neut % (Auto) 65.4 (45-73) % Lymph % (Auto) 27.7 (20-40) % Providence % (Auto) 5.0 (2-11) % Eos % (Auto) 1.2 (0-4) % Baso % (Auto) 0.5 (0-2) % Lymph # (Auto) 2.9 (1.2-4.9) X10*3/uL Providence # (Auto) 0.5 (0.1-1.2) X10*3/uL Eos # (Auto) 0.1 (0.0-0.4) X10*3/uL Baso # (Auto) 0.1 (0.0-0.2) X10*3/uL Abs Immat Gran (auto) 0.02 (0.00-0.03) X10*3/uL Absolute Neuts (auto) 6.9 (2.0-8.3) x10*3/uL Absolute Nucleated RBC 0.000 (0.0-0.012) X10*3/uL Nucleated RBC % (auto) 0.0 (0.0-0.2) /100WBC Sodium 140 (135-145) mmol/L Potassium 3.8 (3.3-5.1) mmol/L Chloride 105 (96-108) mmol/L Carbon Dioxide 25 (22-29) mmol/L Anion Gap 14 (12-20) BUN 10 (9-16) mg/dL Creatinine 0.76 (0.5-1.4) mg/dL Estim Creat Clear Calc 108.3 Estimated GFR > 60 Random Glucose 91 (60-115) mg/dL Calcium 9.1 (8.4-10.2) mg/dL Total Bilirubin 1.0 (0.0-1.0) mg/dL Direct Bilirubin 0.3 (0.0-0.5) mg/dL AST 12 (5-31) U/L ALT 11 (0-31) U/L Alkaline Phosphatase 51 (39-117) U/L Total Protein 6.9 (6.5-8.0) g/dL Albumin 4.3 (3.5-5.0) g/dL Lipase 10 (8-78) U/L Urine Color Urine Appearance Urine pH (5.0-9.0) Ur Specific [place] (1.005-1.025) Urine Protein (Neg-Trace) mg/dL Urine Glucose (UA) (Negative) mg/dL Urine Ketones (Negative) mg/dL Urine Blood (Negative) Urine Nitrite (Negative) Ur Leukocyte Esterase (Negative) Urine Test (NEGATIVE) COVID-19 (GHANSHYAM) (Negative) COVID-19 Clin Com 08/01/22 08/01/22 08/01/22 Range/Units 11:31 11:31 11:31 WBC (4.8-10.8) X10*3/uL RBC (4.20-5.50) X10*6/uL Hgb (12.0-16.0) g/dl Hct (37.0-47.0) % MCV (80.0-98.0) fL MCH (27.0-33.0) pg MCHC (31.0-35.0) g/dl RDW (11.0-16.0) % Plt Count (160-400) X10*3/uL MPV (9.4-12.3) fL Immature Gran % (Auto) (0.0-0.4) % Neut % (Auto) (45-73) % Lymph % (Auto) (20-40) % Providence % (Auto) (2-11) % Eos % (Auto) (0-4) % Baso % (Auto) (0-2) % Lymph # (Auto) (1.2-4.9) X10*3/uL Providence # (Auto) (0.1-1.2) X10*3/uL Eos # (Auto) (0.0-0.4) X10*3/uL Baso # (Auto) (0.0-0.2) X10*3/uL Abs Immat Gran (auto) (0.00-0.03) X10*3/uL Absolute Neuts (auto) (2.0-8.3) x10*3/uL Absolute Nucleated RBC (0.0-0.012) X10*3/uL Nucleated RBC % (auto) (0.0-0.2) /100WBC Sodium (135-145) mmol/L Potassium (3.3-5.1) mmol/L Chloride (96-108) mmol/L Carbon Dioxide (22-29) mmol/L Anion Gap (12-20) BUN (9-16) mg/dL Creatinine (0.5-1.4) mg/dL Estim Creat Clear Calc Estimated GFR Random Glucose (60-115) mg/dL Calcium (8.4-10.2) mg/dL Total Bilirubin (0.0-1.0) mg/dL Direct Bilirubin (0.0-0.5) mg/dL AST (5-31) U/L ALT (0-31) U/L Alkaline Phosphatase (39-117) U/L Total Protein (6.5-8.0) g/dL Albumin (3.5-5.0) g/dL Lipase (8-78) U/L Urine Color Yellow Urine Appearance Clear Urine pH 8.0 (5.0-9.0) Ur Specific [place] 1.010 (1.005-1.025) Urine Protein Negative (Neg-Trace) mg/dL Urine Glucose (UA) Negative (Negative) mg/dL Urine Ketones 15 (Negative) mg/dL Urine Blood Negative (Negative) Urine Nitrite Negative (Negative) Ur Leukocyte Esterase Negative (Negative) Urine Test NEGATIVE (NEGATIVE) COVID-19 (GHANSHYAM) Negative (Negative) COVID-19 Clin Com See Note Critical Care Time Critical Care Time Critical Care Time: No Discharge Plan Discharge Clinical Impression: Nausea & vomiting, Acute diarrhea, Viral syndrome, Lightheadedness Patient Disposition: Home, Self-Care Instructions: Acute Nausea and Vomiting (ED), Acute Diarrhea (ED), Viral Syndrome (ED), Lightheadedness (ED) Additional Instructions: Take your medications as prescribed. If you were prescribed antibiotics today, it is important that you take your medication to their entirety, do not skip any doses, do not finish them early. Follow-up with your primary care provider this week. Return to the emergency department with new or worsening symptoms. Such as fevers, chills, chest pain, shortness of breath, nausea, vomiting, dizziness, he adache, vision changes, lethargy In case of emergency call 911 Please follow a bland diet. Your laboratory studies were reassuring. I have sent Johnson to her pharmacy, please take this as prescribed, please do not take more than the prescribed amount is this can cause cardiac arrhythmia. Prescriptions: New ondansetron 4 mg tablet,disintegrating 4 mg PO Q6H PRN (Reason: nausea and vomiting) Qty: 14 0RF No Action lorazepam [Ativan] 0.5 mg tablet 0.5 mg PO TID PRN (Reason: anxiety) Qty: 10 0RF Rx Instructions: patient may ask for partial fill nitrofurantoin monohyd/m-cryst [Macrobid] 100 mg capsule 100 mg PO Q12H 7 Days Qty: 14 0RF Rx Instructions: must administer with a meal/food lorazepam [Ativan] 1 mg tablet 1 mg PO Q8H PRN (Reason: anxiety) Qty: 14 0RF doxycycline monohydrate 100 mg capsule 100 mg PO BID 21 Days Qty: 42 0RF Rx Instructions: Positive lyme lorazepam [Ativan] 1 mg tablet 1 mg PO BID PRN (Reason: anxiety) Qty: 10 0RF lorazepam [Ativan] 1 mg tablet 1 mg PO BID PRN (Reason: anxiety) Qty: 10 0RF amoxicillin-pot clavulanate 875-125 mg tablet 1 tab PO Q12H 10 Days Qty: 20 0RF oxycodone 5 mg capsule 5 mg PO Q8H PRN (Reason: pain) 3 Days Qty: 9 0RF Rx Instructions: Partial Fill upon patient request. promethazine 25 mg tablet 25 mg PO Q6H PRN (Reason: nausea and vomiting) Qty: 20 0RF Referrals: Simi Lara NP [Primary Care Provider] - 2 days Stand Alone Forms: Work/School Release
[2022-08-01] MEDS: 0.9 % Sodium Chloride 1,000 ML 999 ML IV (11:40)
[2022-08-01 11:45] LABS: MANUAL DIFF FLAG NO
[2022-08-01 11:51] LABS: Appearance Urine Clear; Color Urine Yellow; Glucose Urine UA Negative (Negative); Leukocyte Esterase Urine Negative (Negative); Nitrite Urine Negative (Negative); Urine Blood Negative (Negative); Urine Ketones 15 mg/dL (Negative); Urine Protein Negative (Neg-Trace)
[2022-08-01 11:56] LABS: Basophils Absolute Auto 0.1 X10*3/uL (0.0-0.2); Basophils Percent Auto 0.5 % (0-2); Eosinophils Absolute Auto 0.1 X10*3/uL (0.0-0.4); Eosinophils Percent Auto 1.2 % (0-4); Hematocrit 39.7 % (37.0-47.0); Hemoglobin 13.3 g/dl (12.0-16.0); Imm Gran Abs Auto 0.02 X10*3/uL (0.00-0.03); Imm Gran Pct Auto 0.2 % (0.0-0.4); Lymphocytes Absolute Auto 2.9 X10*3/uL (1.2-4.9); Lymphocytes Percent Auto 27.7 % (20-40); Mean Corpuscular HGB Conc 33.5 g/dl (31.0-35.0); Mean Corpuscular Hemoglobin 30.9 pg (27.0-33.0); Mean Corpuscular Volume 92.3 fL (80.0-98.0); Mean Platelet Volume 11.5 fL (9.4-12.3); Monocytes Absolute Auto 0.5 X10*3/uL (0.1-1.2); Neutrophils Absolute Auto 6.9 x10*3/uL (2.0-8.3); Neutrophils Percent Auto 65.4 % (45-73); Platelet Count 199 X10*3/uL (160-400); Red Cell Distribution Width 13.2 % (11.0-16.0); UPreg QC Valid YES; Urine Pregnancy NEGATIVE (NEGATIVE); White Blood Count 10.5 X10*3/uL (4.8-10.8)
[2022-08-01 12:00] LABS: Anion Gap 14 (12-20); Blood Urea Nitrogen 10 mg/dL (9-16); Calcium 9.1 mg/dL (8.4-10.2); Carbon Dioxide 25 mmol/L (22-29); Chloride 105 mmol/L (96-108); Creatinine Clr Calc Pharmacy 108.3; Estimated Glomerular Filt Rate > 60; Glucose Random 91 mg/dL (60-115); Potassium 3.8 mmol/L (3.3-5.1); Sodium 140 mmol/L (135-145)
[2022-08-01 12:01] LABS: COVID-19 Test Negative (Negative); IDNOW Serial# 16C4AD1C
[2022-08-01 12:02] LABS: Alanine Aminotransferase 11 U/L (0-31); Albumin Level 4.3 g/dL (3.5-5.0); Alkaline Phosphatase 51 U/L (39-117); Aspartate Amino Transferase 12 U/L (5-31); Bilirubin Direct 0.3 mg/dL (0.0-0.5); Lipase 10 U/L (8-78); Total Protein 6.9 g/dL (6.5-8.0)
[2022-08-01] MEDS: ondansetron HCL 4 MG/2 ML VIAL IVPUSH (13:02)
== END 2022-08-01 13:04 | disposition home or self-care (01) ==
PROVIDERS: Physician Assistant; Emergency Provider Emergency Medicine; PCP Nurse Practitioner Family
DX: B34.9 Viral infection, unspecified (principal); R11.2 Nausea with vomiting, unspecified; R19.7 Diarrhea, unspecified; R42 Dizziness and giddiness; Z20.822 Contact with and (suspected) exposure to COVID-19; F17.200 Nicotine dependence, unspecified, uncomplicated; Z79.899 Other long term (current) drug therapy
CPT/HCPCS: 36415; 80048; 80076; 81003; 81025; 83690; 85025; 87635; 96374; 99283; 99284; J2405

== ENCOUNTER 2022-10-08 03:47 | Emergency (ER) | payer OTHER, SELFPAY ==
[2022-10-08 03:49] VITALS: BP 116/73; PULSE 97; RESP 20; TEMP 36.9; O2SAT 99; BMI 27.4
[2022-10-08 04:00] LABS: Hematocrit 41.3 % (37.0-47.0); Hemoglobin 13.8 g/dl (12.0-16.0); Mean Corpuscular HGB Conc 33.4 g/dl (31.0-35.0); Mean Corpuscular Hemoglobin 30.6 pg (27.0-33.0); Mean Corpuscular Volume 91.6 fL (80.0-98.0); Mean Platelet Volume 11.4 fL (9.4-12.3); Platelet Count 231 X10*3/uL (160-400); Red Blood Count 4.51 X10*6/uL (4.20-5.50); Red Cell Distribution Width 12.8 % (11.0-16.0); WBC ABN SCTR FOR CBC 1
[2022-10-08 04:01] LABS: White Blood Count 8.4 X10*3/uL (4.8-10.8)
[2022-10-08 04:17] VITALS: BP 105/64; PULSE 80; RESP 20; TEMP 36.8; O2SAT 99
[2022-10-08 04:18] LABS: Atypical Lymph Absolute Manual 0.3 x10*3/uL; Atypical Lymphs Percent Manual 4 % (0-6); Basophils Abs Manual 0.2 X10*3/uL (0.0-0.2); Basophils Percent Manual 2 % (0-2); Eosinophils Absolute Manual 0.1 X10*3/uL (0.0-0.4); Eosinophils Percent Manual 1 % (0-4); Lymphocytes Absolute Manual 3.1 X10*3/uL (1.2-4.9); Lymphocytes Percent Manual 37 % (20-40); Monocytes Absolute Manual 0.3 X10*3/uL (0.1-1.2); Monocytes Percent Manual 4 % (2-11); Neutrophils Percent Manual 52 % (45-73)
[2022-10-08 04:19] LABS: Band Neutrophils Percent 0 % (3-5); Neutrophils Absolute Manual 4.4 X10*3/uL (2.0-8.3)
[2022-10-08 04:20] LABS: Platelet Estimate NORMAL (NORMAL); Platelet Morphology Comment NORMAL; RBC Morphology NORMAL; Toxic Vacuolation PRESENT
[2022-10-08 04:23] LABS: Alanine Aminotransferase 7 U/L (0-31); Albumin Level 4.3 g/dL (3.5-5.0); Alkaline Phosphatase 54 U/L (39-117); Anion Gap 14 (12-20); Aspartate Amino Transferase 11 U/L (5-31); Bilirubin Total 1.1 mg/dL (0.0-1.0); Blood Urea Nitrogen 12 mg/dL (9-16); Calcium 9.5 mg/dL (8.4-10.2); Carbon Dioxide 22 mmol/L (22-29); Chloride 109 mmol/L (96-108); Creatinine Clr Calc Pharmacy 100.4; Estimated Glomerular Filt Rate > 60; Glucose Random 95 mg/dL (60-115); Potassium 4.4 mmol/L (3.3-5.1); Sodium 141 mmol/L (135-145); Total Protein 7.2 g/dL (6.5-8.0)
--- OUTSIDE RECORDS SUMMARY | 2022-10-08 04:59 | XMS_ITS | Continuity of Care Document ---
:1985 Author Organization [facility] Address [address] [place] [address]- Care Team Providers Name Role Phone Marco MILLS, Simi Primary Care Physician Encounter [facility] Date(s): 02/26/22 - 03/28/22 [facility] [address] [place] [address]- [place] Allergies, Adverse Reactions, Alerts No Known Allergies Immunizations Given and Recorded Vaccine Date Status Refusal Reason SARS-CoV-2 (COVID-19) mRNA BNT-162b2 vac 10/02/21 Recorde d SARS-CoV-2 (COVID-19) mRNA BNT-162b2 vac 12/31/20 Recorde d SARS-CoV-2 (COVID-19) mRNA BNT-162b2 vac 11/19/20 Recorde d influenza virus vaccine, inactivated 09/12/20 Recorded pneumococcal 23-valent vaccine 05/20/13 Recorded diphtheria/tetanus/pertussis, acel(DTaP) 05/20/13 Recorde d Medications buPROPion 100 mg/12 hours (SR) oral tablet, extended release 1 tablet = 100 mg, By Mouth, 2 times a day, # 60 tablet, 1 Refills, Maintenance, 08/21/21 15:57:00 EDT, [id number], 168, cm, 08/21/21 15:24:00 EDT, Height Start Date: 08/21/21 Stop Date: 10/20/21 Status: OrderedhydrOXYzine hydrochloride 50 mg oral tablet 1 tablet, By Mouth, 2 times a day, PRN NEEDED FOR ANXIETY FOR, for 30 days, schedule follow up with PCP for additional refills, # 60 tablet, 0 Refills, Physician Stop 04/11/22 17:01:00 EDT, 03/12/2217:01:00 EDT, [facility] #[id number], 168, cm, ... Start Date: 03/12/22 Stop Date: 04/11/22 Status: OrderedhydrOXYzine hydrochloride 50 mg oral tablet 1 tablet, By Mouth, 2 times a day, PRN NEEDED FOR ANXIETY FOR, for 90 days, # 60 tablet, 0 Refills, Physician Stop, [id number], 168, cm, 01/21/22 13:05:00 EST, Height Start Date: 02/05/22 Stop Date: 05/06/22 Status: Orderednicotine 21 mg/24 hr transdermal film, extended release 1 patch, Topically, Daily, # 30 patch, 1 Refills, Maintenance, 03/25/21 15:25:00 EDT, Patch, [facility]/pharmacy #[id number], Partial fill upon patient request if the prescription is for a schedule II opioid drug.,1 patch Topically Daily, 168, cm, 03/25/21 14:59:... Start Date: 03/25/21 Status: Orderednicotine 4 mg oral transmucosal gum 1 each = 4 mg, Chew, Every 2 hours, PRN as needed for smoking cessation, # 40 each, 1 Refills, Maintenance, 03/25/21 15:25:00 EDT, Gum, [facility]/pharmacy #[id number], Partial fill upon patient request if the prescription is for a schedule II opioid drug., 168, c... Start Date: 03/25/21 Status: Ordered Problem List Condition Effective Dates Status Health Status Informant Anxiety(Confirmed) Active Palpitations(Confirmed) Active Tobacco abuse(Confirmed) Active Social History Social History Type Response Smoking Status 10 or more cigarettes (1/2 p ack or more)/day in last 30 days entered on: 08/28/19 Sex
--- OUTSIDE RECORDS SUMMARY | 2022-10-08 04:59 | XMS_ITS | Continuity of Care Document ---
:1985 Author Organization [facility] Address [address] [phone]- Care Team Providers Name Role Phone Simi Lara NP Primary Care Physician Encounter [facility] Date(s): 09/04/22 - 10/04/22 [facility] [address] [place] [address]- Allergies, Adverse Reactions, Alerts No Known Allergies Immunizations Given and Recorded Vaccine Date Status Refusal Reason SARS-CoV-2 (COVID-19) mRNA BNT-162b2 vac 10/02/21 Recorde d SARS-CoV-2 (COVID-19) mRNA BNT-162b2 vac 12/31/20 Recorde d SARS-CoV-2 (COVID-19) mRNA BNT-162b2 vac 11/19/20 Recorde d influenza virus vaccine, inactivated 09/12/20 Recorded pneumococcal 23-valent vaccine 05/20/13 Recorded diphtheria/tetanus/pertussis, acel(DTaP) 05/20/13 Recorde d Medications busPIRone 15 mg oral tablet 1 tablet = 15 mg, By Mouth, 2 times a day, # 60 tablet, 4 Refills, Maintenance, 09/22/22 11:02:00 EDT, [id number], Partial fill upon patient request if the prescription is for a schedule II opioid drug., 168, cm, 09/04/22 13:55:00 EDT, Height Start Date: 09/22/22 Status: OrderedLORazepam 0.5 mg oral tablet See Instructions, TAKE 1-2 TABLETS BY MOUTH AT BEDTIME FOR ANXIETY FOR 30 DAYS, # 28 tablet, 0 Refills, Maintenance, 10/21/22 18:15:00 EST, [id number], 168, cm, 09/04/22 13:55:00 EDT, Height Start Date: 10/21/22 Stop Date: 10/21/22 Status: Ordered Problem List Condition Confirmation Course Effective Dates Status Health Stat us Informant Anxiety Confirmed Active Palpitations Confirmed Active Tobacco abuse Confirmed Active Social History Social History Type Response Smoking Status 10 or more cigarettes (1/2 p ack or more)/day in last 30 days entered on: 08/28/19 Sex Patient Care team information Care Team PersonnelName: Marco MILLS, Simi Position: [facility] Associate Professional Member Role: PCP Address: Address: [address] [place] [phone]- Care Team Related PersonsName: LISA RIVAS Address: home [address] [address] Name: CHARLENE DAVIS Address: home [address] [place] [id number]
--- OUTSIDE RECORDS SUMMARY | 2022-10-08 04:59 | XMS_ITS | Continuity of Care Document ---
:1985 Author Organization [facility] Address [address] [place] [address]- Care Team Providers Name Role Phone Marco MILLS, Simi Primary Care Physician Encounter [facility] Date(s): 04/10/22 - 05/10/22 [facility] [address] [place] [address]- [place] Allergies, Adverse Reactions, Alerts No Known Allergies Immunizations Given and Recorded Vaccine Date Status Refusal Reason SARS-CoV-2 (COVID-19) mRNA BNT-162b2 vac 10/02/21 Recorde d SARS-CoV-2 (COVID-19) mRNA BNT-162b2 vac 12/31/20 Recorde d SARS-CoV-2 (COVID-19) mRNA BNT-162b2 vac 11/19/20 Recorde d influenza virus vaccine, inactivated 09/12/20 Recorded pneumococcal 23-valent vaccine 05/20/13 Recorded diphtheria/tetanus/pertussis, acel(DTaP) 05/20/13 Recorde d Medications nicotine 21 mg/24 hr transdermal film, extended release 1 patch, Topically, Daily, # 30 patch, 1 Refills, Maintenance, 03/25/21 15:25:00 EDT, Patch, [id number], Partial fill upon patient request if the prescription is for a schedule II opioid drug.,1 patch Topically Daily, 168, cm, 03/25/21 14:59:... Start Date: 03/25/21 Status: Orderednicotine 4 mg oral transmucosal gum 1 each = 4 mg, Chew, Every 2 hours, PRN as needed for smoking cessation, # 40 each, 1 Refills, Maintenance, 03/25/21 15:25:00 EDT, Gum, [id number], Partial fill upon patient request if the prescription is for a schedule II opioid drug., 168, c... Start Date: 03/25/21 Status: Orderedsertraline 25 mg oral tablet 1 tablet = 25 mg, By Mouth, Daily, 1 tablet by mouth daily x1 month, then may increase to 2 tablets by mouth daily x1 month, # 90 tablet, 0 Refills, Maintenance, 05/01/22 15:32:00 EDT, [id number], Partial fill upon patient request if the presc... Start Date: 05/01/22 Status: Ordered Problem List Condition Effective Dates Status Health Status Informant Anxiety(Confirmed) Active Palpitations(Confirmed) Active Tobacco abuse(Confirmed) Active Social History Social History Type Response Smoking Status 10 or more cigarettes (1/2 p ack or more)/day in last 30 days entered on: 08/28/19 Sex
--- OUTSIDE RECORDS SUMMARY | 2022-10-08 04:59 | XMS_ITS | Continuity of Care Document ---
:1985 Author Organization [facility] Address [address] [place] [address]- Care Team Providers Name Role Phone Simi Lara NP Primary Care Physician [facility] Date(s): 10/22/21 - 12/05/21 [facility] [address] [phone]- Attending Physician: Micah Montelongo MD Allergies, Adverse Reactions, Alerts No Known Allergies Immunizations Given and Recorded Vaccine Date Status Refusal Reason SARS-CoV-2 (COVID-19) mRNA BNT-162b2 vac 12/31/20 Recorde d SARS-CoV-2 (COVID-19) mRNA BNT-162b2 vac 11/19/20 Recorde d influenza virus vaccine, inactivated 09/12/20 Recorded pneumococcal 23-valent vaccine 05/20/13 Recorded diphtheria/tetanus/pertussis, acel(DTaP) 05/20/13 Recorde d Medications buPROPion 100 mg/12 hours (SR) oral tablet, extended release 1 tablet = 100 mg, By Mouth, 2 times a day, # 60 tablet, 1 Refills, Maintenance, 08/21/21 15:57:00 EDT, [facility]/pharmacy #[id number], 168, cm, 08/21/21 15:24:00 EDT, Height Start Date: 08/21/21 Stop Date: 10/20/21 Status: OrderedhydrOXYzine hydrochloride 50 mg oral tablet 1 tablet, By Mouth, 2 times a day, PRN NEEDED FOR ANXIETY FOR, for 90 days, # 60 tablet, 2 Refills, Physician Stop, [id number], 168, cm, 10/22/21 8:50:00 EST, Height Start Date: 11/12/21 Stop Date: 3/22/22 Status: OrderedMetoprolol Tartrate 25 mg oral tablet 1 tablet = 25 mg, By Mouth, 2 times a day, # 60 tablet, 0 Refills, Maintenance, 10/22/21 10:13:00 EST, Tablet, [facility]/pharmacy #[id number], Partial fill upon patient request if the prescription is for a schedule II opioid drug., 168, cm, 10/22/21 8:50:00 EST,... Start Date: 10/22/21 Status: Orderednicotine 21 mg/24 hr transdermal film, extended release 1 patch, Topically, Daily, # 30 patch, 1 Refills, Maintenance, 03/25/21 15:25:00 EDT, Patch, [id number], Partial fill upon patient request if the prescription is for a schedule II opioid drug.,1 patch Topically Daily, 168loida, 03/25/21 14:59:... Start Date: 03/25/21 Status: Orderednicotine 4 mg oral transmucosal gum 1 each = 4 mg, Chew, Every 2 hours, PRN as needed for smoking cessation, # 40 each, 1 Refills, Maintenance, 03/25/21 15:25:00 EDT, Gum, [facility]/pharmacy #[id number], Partial fill upon patient request if [...]
--- OUTSIDE RECORDS SUMMARY | 2022-10-08 04:59 | XMS_ITS | Continuity of Care Document ---
:1985 Author Organization [facility] Address [address] [place] [address]- Care Team Providers Name Role Phone Marco MILLS, iSmi Primary Care Physician [id number] Date(s): 04/16/22 - 05/16/22 [facility] [address] [place] [address]- Allergies, Adverse Reactions, Alerts No Known Allergies [...] tablet, 0 Refills, Maintenance, 05/01/22 15:32:00 EDT, [facility]/pharmacy #[id number], Partial fill upon patient request if the presc... Start Date: 05/01/22 Status: Ordered Problem List Condition Effective Dates Status Health Status Informant Anxiety(Confirmed) Active Palpitations(Confirmed) Active Tobacco abuse(Confirmed) Active Social History Social History Type Response Smoking Status 10 or more cigarettes (1/2 p ack or more)/day in last 30 days entered on: 08/28/19 Sex
--- OUTSIDE RECORDS SUMMARY | 2022-10-08 04:59 | XMS_ITS | Continuity of Care Document ---
:1985 Author Organization [facility] Address [address] [id number]- Care Team Providers Name Role Phone Simi Lara NP Primary Care Physician [id number] Date(s[facility] 09/22/22 - 09/29/22 [facility] [address] [place] [address]- Encounter Diagnosis Anxiety (Discharge Diagnosis) - 09/22/22 Attending Physician: Claire Larsen MD Allergies, Adverse Reactions, Alerts No Known [...] tablet, 4 Refills, Maintenance, 09/22/22 11:02:00 EDT, [facility]/pharmacy #[id number], Partial fill upon patient request if the [...] Palpitations Confirmed Active Tobacco abuse Confirmed Active Diagnosis Diagnosis Type Effective Dates Health Status Clinical [facility] Informant Anxiety Discharge 09/22/22 Diagnosis Social History Social History Type Response Smoking Status 10 or more cigarettes (1/2 p ack or more)/day in last 30 days entered on: 08/28/19 Sex Note Nupur Calderon [place]: PERFORM, SIGN, VERIFY Event Display: Patient Education/Instruction Authored Date: [id number] [facility] *BMP Quab Adlt Med Bltn Clinical Summary Name ANDREW DAVIS Age 37 Years 1985 PCP Simi Lara NP PCP Visit Date 09/22/2022 10:40:00 Additional Instructions: Scheduled Appointments?? Future Appointments ?*BMP??Quab??Adlt??Med??Bltn ?[address],??[place],??[address] ?Phone:??--?Fax:??-- ?Appt. Date:??10/13/2022?8:20 AM ?Scheduled Provider:??Simi Lara NP Follow-Up Instructions ?? Diagnosis Anxiety disorder, unspecified Medications: Please continue your medications until treatment is completed or stopped by your provider. Discuss any questions related to medications with your provider. Medications to Continue Taking That Have Changed [id number] [address], [place] [id number], [phone] - BusPIRone (busPIRone 15 mg oral tablet) 1 tab(s) Oral twice a day. Refills: 4. Next Dose: Medications to Continue with No Changes These medications were not printed or sent to your pharmacy Lorazepam (LORazepam 0.5 mg oral tablet) TAKE 1-2 TABLETS BY MOUTH AT BEDTIME FOR ANXIETY FOR 30 DAYS. Refills: 0. Next Dose: Allergy Info:?? NKA Medications Given This Visit Future Orders ?No future orders Vital Signs Height Weight BMI Blood Pressure / Temperature Pulse Rate Respiratory Rate 02 Sat Mode of Delivery / You can now view a summary of your hospital visit from the comfort of your home through a free online portal called [employer]. [employer] is a website that allows you to securely view yourmedical information including discharge summary, medications and follow-up visits. ??You can also send a secure electronic message to your doctor???s office to request appointments, renew medications or just ask a question. You can enroll at [email or web address] or register during your next office visit. Disclaimer:?? The information provided is of a general nature and is intended to be used in conjunction with the recommendations and advice of your health care practitioner. ??Every effort has been made to ensure that the information provided is accurate and complete at the time it is provided to you however, as your needs change, or, as new ??information becomes available, different or additional instructions may be required. If you have questions, please consult with your primary care provider or pharmacist, as appropriate.??This information is not intended to serve as substitution for assessment and evaluation by a qualified health care provider. If you do not have a primary care provider, you may find a [facility] provider by calling [facility] at [phone]. For information about the plan of care including goals and instructions for your diagnosis, please see the patient education orders section of this document. Patient Education Materials?? The content of this educational material or handout may have been modified, supplemented, or adaptedfrom its original content and format to support your individualized medical care. Patient Care team information Care Team PersonnelName: Simi Lara NP Position: [facility] PCO Associate Professional Member Role: PCP Address: Address: [address] [place] [address]- Care Team Related PersonsName: LISA CALDERON Address: home [address] [address] Name: CHARLENE DAVIS Address: home [address] [place] [address]
--- OUTSIDE RECORDS SUMMARY | 2022-10-08 04:59 | XMS_ITS | Continuity of Care Document ---
:1985 Author Organization [facility] Address [address] [place] [address]- Care Team Providers Name Role Phone Simi Lara NP Primary Care Physician Encounter [facility] Date(s): 04/21/22 - 05/21/22 [facility] [address] [place] [address]- [place] Allergies, Adverse Reactions, Alerts No Known [...] tablet, 0 Refills, Maintenance, 05/01/22 15:32:00 EDT, [facility]/pharmacy #[id number], Partial fill upon patient request if the presc... Start Date: 05/01/22 Status: Ordered Problem List Condition Effective Dates Status Health Status Informant Anxiety(Confirmed) Active Palpitations(Confirmed) Active Tobacco abuse(Confirmed) Active Social History Social History Type Response Smoking Status 10 or more cigarettes (1/2 p ack or more)/day in last 30 days entered on: 08/28/19 Sex
--- OUTSIDE RECORDS SUMMARY | 2022-10-08 04:59 | XMS_ITS | Continuity of Care Document ---
:1985 Author Organization [facility] Address [address] [place] [address]- Care Team Providers Name Role Phone Marco MILLS, Simi Primary Care Physician Encounter [facility] Date(s): 01/21/22 - 01/28/22 [facility] [address] [place] [address]- Attending Physician: Claire Larsen MD Allergies, Adverse [...] tablet, 1 Refills, Maintenance, 08/21/21 15:57:00 EDT, [facility]/pharmacy #[id number], 168, cm, 08/21/21 15:24:00 EDT, Height Start Date: 08/21/21 Stop Date: 10/20/21 Status: OrderedhydrOXYzine hydrochloride 50 mg oral tablet 1 tablet, By Mouth, 2 times a day, PRN NEEDED FOR ANXIETY FOR, for 90 days, # 60 tablet, 2 Refills, Physician Stop, [id number], 168, cm, 10/22/21 8:50:00 EST, Height Start Date: 11/12/21 Stop Date: 02/10/22 Status: Orderednicotine 21 mg/24 hr transdermal film, [...] Anxiety(Confirmed) Active Palpitations(Confirmed) Active Tobacco abuse(Confirmed) Active Vital Signs Most recent to oldest [Reference Range]: 1 Height 168 cm (01/21/22 1:05 PM) Weight 78.5 kg (01/21/22 1:05 PM) Oxygen Saturation [94-100 %] 96 % (01/21/22 1:05 PM) Pulse Rate [55-90 bpm] 84 bpm (01/21/22 1:05 PM) Body Mass Index [18.5-24.99] 27.81 *H* (01/21/22 1:05 PM) Blood Pressure [90-138/55-84 mm Hg] 118/64 mm Hg (01/21/22 1:05 PM) Temperature [96.8-100.4 DegF] 98.0 DegF (01/21/22 1:05 PM) Liters per Minute 0 L/min (01/21/22 1:05 PM) Mode of Delivery (Oxygen) Room air (01/21/22 1:05 PM) Blood pressure sites Arm, left (01/21/22 1:05 PM) Temperature Route Temporal (01/21/22 1:05 PM) Weight Obtained Via Standing scale (01/21/22 1:05 PM) Social History Social History Type Response Smoking Status 10 or more cigarettes (1/2 p ack or more)/day in last 30 days entered on: 08/28/19 Sex
--- OUTSIDE RECORDS SUMMARY | 2022-10-08 04:59 | XMS_ITS | Continuity of Care Document ---
:1985 Author Organization [facility] Address [address] [phone]- Care Team Providers Name Role Phone Simi Lara NP Primary Care Physician Encounter [facility] Date(s): 07/22/22 - 08/21/22 [facility] [address] [place] [address]- Allergies, Adverse Reactions, Alerts No Known Allergies Immunizations Given and Recorded Vaccine Date Status Refusal Reason SARS-CoV-2 (COVID-19) mRNA BNT-162b2 vac 10/02/21 Recorde d SARS-CoV-2 (COVID-19) mRNA BNT-162b2 vac 12/31/20 Recorde d SARS-CoV-2 (COVID-19) mRNA BNT-162b2 vac 11/19/20 Recorde d influenza virus vaccine, inactivated 09/12/20 Recorded pneumococcal 23-valent vaccine 05/20/13 Recorded diphtheria/tetanus/pertussis, acel(DTaP) 05/20/13 Recorde d Medications hydrOXYzine hydrochloride 50 mg oral tablet 1 tablet, By Mouth, 2 times a day, PRN NEEDED FOR ANXIETY, # 60 tablet, 3 Refills, Physician Stop08/30/22 11:10:00 EDT, 06/30/22 11:10:00 EDT, [id number], 168, cm, 01/21/22 13:05:00 EST, Height Start Date: 06/30/22 Stop Date: 08/30/22 Status: OrderedLORazepam 0.5 mg oral tablet See Instructions, 1-2 tablets by mouth at bedtime for anxiety x 30 days, # 60 tablet, 0 Refills, Acute 09/11/22 17:12:00 EDT, 08/12/22 17:11:00 EDT, Tablet, [id number], Partial fill upon patient request if the prescription is for a schedule II... Start Date: 08/12/22 Stop Date: 09/11/22 Status: Ordered Problem List Condition Confirmation Course Effective Dates Status Health Stat us Informant Anxiety Confirmed Active Palpitations Confirmed Active Tobacco abuse Confirmed Active Social History Social History Type Response Smoking Status 10 or more cigarettes (1/2 p ack or more)/day in last 30 days entered on: 08/28/19 Sex Patient Care team information PersonnelName: Simi Lara NP Address: Address: [address] [place], [place] [address] [place], [place] [address]
--- OUTSIDE RECORDS SUMMARY | 2022-10-08 04:59 | XMS_ITS | Continuity of Care Document ---
:1985 Author Organization [employer] [facility] Address [address] [place] [address]- Care Team Providers Name Role Phone Marco MILLS, Simi Primary Care Physician Encounter [facility] Date(s): 06/01/22 - 07/01/22 [facility] [address] [place] [address]- Allergies, Adverse Reactions, Alerts No Known Allergies [...] Start Date: 06/30/22 Stop Date: 08/30/22 Status: Orderednicotine 21 mg/24 hr transdermal film, [...] 1 Refills, Maintenance, 03/25/21 15:25:00 EDT, Gum, [facility]/pharmacy #[id number], Partial fill upon patient request if the prescription is for a schedule II opioid drug., 168, c... Start Date: 03/25/21 Status: Orderedsertraline 25 mg oral tablet See Instructions, TAKE 1 TABLET BY MOUTH DAILY X1 MONTH, THEN MAY INCREASE TO 2 TABLETS BY MOUTH DAILY X1 MONTH, # 90 tablet, 0 Refills, [id number], 168, cm, 01/21/22 13:05:00 EST, Height Start Date: 06/29/22 Status: Ordered Problem List Condition Effective Dates Status Health Status Informant Anxiety(Confirmed) Active Palpitations(Confirmed) Active Tobacco abuse(Confirmed) Active Social History Social History Type Response Smoking Status 10 or more cigarettes (1/2 p ack or more)/day in last 30 days entered on: 08/28/19 Sex
--- OUTSIDE RECORDS SUMMARY | 2022-10-08 04:59 | XMS_ITS | Continuity of Care Document ---
:1985 Author Organization [facility] [employer] [facility] Address [address] [place] [address]- Care Team Providers Name Role Phone Simi Lara NP Primary Care Physician Encounter [facility] Date(s): 05/01/22 - 08/06/22 [facility] [address] [place] [address]- Attending Physician: Simi Lara NP Allergies, Adverse Reactions, Alerts No Known Allergies [...] Start Date: 06/30/22 Stop Date: 08/30/22 Status: OrderedhydrOXYzine hydrochloride 50 mg oral tablet See Instructions, TAKE 1 TABLET BY MOUTH TWICE A DAY NEEDED FOR ANXIETY FOR 90 DAYS, # 60 tablet,0 Refills, Maintenance, 07/31/22 12:04:00 EDT, [facility], 168, cm, 01/21/22 13:05:00 EST, Height Start Date: 07/31/22 Status: OrderedLORazepam 1 mg oral tablet See Instructions, 1 tablet as needed for anxiety. Will need to meet with PCP moving forward for possible contract., # 12 tablet, 0 Refills, Acute 08/21/22 13:42:00 EDT, 07/30/22 13:41:00 EDT, [id number], Partial fill upon patient request if t... Start Date: 07/30/22 Stop Date: 08/21/22 Status: Orderednicotine 21 mg/24 hr transdermal film, [...] # 90 tablet, 0 Refills, [facility], 168, cm, 01/21/22 13:05:00 EST, Height Start Date: 06/29/22 Status: Ordered Problem List Condition Effective Dates Status Health Status Informant Anxiety(Confirmed) Active Palpitations(Confirmed) Active Tobacco abuse(Confirmed) Active Social History Social History Type Response Smoking Status 10 or more cigarettes (1/2 p ack or more)/day in last 30 days entered on: 08/28/19 Sex Care Team PersonnelName: Simi Lara NP Address: [address] [place] [address] [facility]
--- OUTSIDE RECORDS SUMMARY | 2022-10-08 04:59 | XMS_ITS | Continuity of Care Document ---
:1985 Author Organization [facility] [employer] [facility] Address [address] [phone]- Care Team Providers Name Role Phone Simi Lara NP Primary Care Physician [id number] Date(s): 12/01/21 - 12/31/21 [facility] [address] [place] [address]- Attending Physician: Srini Teran Admitting Physician: AdmtrSrini Referring Physician: Admtr ArChiara Allergies, Adverse Reactions, Alerts No Known Allergies [...] tablet, 1 Refills, Maintenance, 08/21/21 15:57:00 EDT, [facility]/pharmacy #[id number], 168, cm, 08/21/21 15:24:00 EDT, Height Start Date: 08/21/21 Stop Date: 10/20/21 Status: OrderedhydrOXYzine hydrochloride 50 mg oral tablet 1 tablet, By Mouth, 2 times a day, PRN NEEDED FOR ANXIETY FOR, for 90 days, # 60 tablet, 2 Refills, Physician Stop, [facility], 168, cm, 10/22/21 8:50:00 EST, Height Start Date: 11/12/21 Stop Date: 02/10/22 Status: OrderedMetoprolol Tartrate 25 mg oral tablet 1 tablet = 25 mg, By Mouth, 2 times a day, # 60 tablet, 0 Refills, Maintenance, 10/22/21 10:13:00 EST, Tablet, [id number], Partial fill upon patient request [...]
--- OUTSIDE RECORDS SUMMARY | 2022-10-08 04:59 | XMS_ITS | Continuity of Care Document ---
:1985 Author Organization [facility] [employer] Address [address] [place] [address]- Care Team Providers Name Role Phone Marco MILLS, Simi Primary Care Physician [facility] Date(s): 03/05/22 - 04/04/22 [facility] [address] [place] [address]- [place] Allergies, Adverse Reactions, Alerts No Known [...] Physician Stop 04/11/22 17:01:00 EDT, 03/12/2217:01:00 EDT, [id number], 168, cm, ... Start Date: 03/12/22 Stop Date: 04/11/22 Status: OrderedhydrOXYzine hydrochloride 50 mg oral tablet 1 tablet, By Mouth, 2 times a day, PRN NEEDED FOR ANXIETY FOR, for 90 days, # 60 tablet, 0 Refills, Physician Stop, [id number], 168, cm, 01/21/22 13:05:00 EST, Height Start Date: 02/05/22 Stop Date: 05/06/22 Status: Orderednicotine 21 mg/24 hr transdermal film, extended release 1 patch, Topically, Daily, # 30 patch, 1 Refills, Maintenance, 03/25/21 15:25:00 EDT, Patch, [facility]/pharmacy #[id number], Partial fill upon patient request if the prescription is for a schedule II opioid drug.,1 patch Topically Daily, 168, cm, 03/25/21 14:59:... Start Date: 03/25/21 Status: Orderednicotine 4 mg oral transmucosal gum 1 each = 4 mg, Chew, Every 2 hours, PRN as needed for smoking cessation, # 40 each, 1 Refills, Maintenance, 03/25/21 15:25:00 EDT, Gum, [facility]/pharmacy #[id number], Partial fill upon patient request [...]
--- OUTSIDE RECORDS SUMMARY | 2022-10-08 04:59 | XMS_ITS | Continuity of Care Document ---
:1985 Author Organization [facility] Address [address] [phone]- Care Team Providers Name Role Phone Simi Lara NP Primary Care Physician [id number] Date(s): 08/21/21 - 11/06/21 [facility] [address] [place] [address]- Attending Physician: Simi Lara NP Allergies, Adverse Reactions, Alerts Substance Reaction Severity Status NKA Active Immunizations Given and Recorded Vaccine Date Status [...] OrderedhydrOXYzine hydrochloride 50 mg oral tablet 1 tablet = 50 mg, By Mouth, 2 times a day, PRN for anxiety, # 180 tablet, 1 Refills, Maintenance, 06/20/21 9:58:00 EDT, Tablet, [id number], Partial fill upon patient request if the prescriptionis for a schedule II opioid drug., 168, cm, 06/20... Start Date: 06/20/21 Stop Date: 12/17/21 Status: OrderedMetoprolol Tartrate 25 mg oral tablet 1 tablet = 25 mg, By Mouth, 2 times a day, # 60 tablet, 0 Refills, Maintenance, 10/22/21 10:13:00 EST, Tablet, [facility]/pharmacy #[id number], Partial fill upon patient request [...] II opioid drug.,1 patch Topically Daily, 168, loida, 03/25/21 14:59:... Start Date: 03/25/21 Status: Orderednicotine 4 mg oral transmucosal gum 1 each = 4 mg, Chew, Every 2 hours, PRN as needed for smoking cessation, # 40 each, 1 Refills, Maintenance, 03/25/21 15:25:00 EDT, Gum, [facility]/pharmacy #[id number], Partial fill upon patient request [...]
--- OUTSIDE RECORDS SUMMARY | 2022-10-08 04:59 | XMS_ITS | Continuity of Care Document ---
:1985 Author Organization [facility] Address [address] [place] [address]- Care Team Providers Name Role Phone Marco MILLS, Simi Primary Care Physician Encounter [facility] Date(s): 04/20/22 - 05/20/22 [facility] [address] [place] [address]- [place] Allergies, Adverse Reactions, Alerts No Known [...] tablet, 0 Refills, Maintenance, 05/01/22 15:32:00 EDT, [facility]/pharmacy #[id number], Partial fill upon patient request if the presc... Start Date: 05/01/22 Status: Ordered Problem List Condition Effective Dates Status Health Status Informant Anxiety(Confirmed) Active Palpitations(Confirmed) Active Tobacco abuse(Confirmed) Active Social History Social History Type Response Smoking Status 10 or more cigarettes (1/2 p ack or more)/day in last 30 days entered on: 08/28/19 Sex
--- OUTSIDE RECORDS SUMMARY | 2022-10-08 04:59 | XMS_ITS | Continuity of Care Document ---
:1985 Author Organization [facility] Address [address] [place] [address]- Care Team Providers Name Role Phone Simi Lara NP Primary Care Physician Encounter [facility] NBR [id number] Date(s): 06/20/21 - 06/27/21 [facility] [address] [place] [address]- Encounter Diagnosis Anxiety (Discharge Diagnosis) - 06/20/21 Palpitations (Discharge Diagnosis) - 06/20/21 Tobacco abuse (Discharge Diagnosis) - 06/20/21 Attending Physician: Not on Staff, Attending MD Allergies, Adverse Reactions, Alerts Substance Reaction Severity Status NKA Active Immunizations Given and Recorded Vaccine Date Status Refusal Reason SARS-CoV-2 (COVID-19) mRNA BNT-162b2 vac 12/31/20 Recorde d SARS-CoV-2 (COVID-19) mRNA BNT-162b2 vac 11/19/20 Recorde d influenza virus vaccine, inactivated 09/12/20 Recorded pneumococcal 23-valent vaccine 05/20/13 Recorded diphtheria/tetanus/pertussis, acel(DTaP) 05/20/13 Recorde d Medications hydrOXYzine hydrochloride 50 mg oral tablet 1 tablet = 50 mg, By Mouth, 2 times a day, PRN for anxiety, # 180 tablet, 1 Refills, Maintenance, 06/20/21 9:58:00 EDT, Tablet, [id number], Partial fill upon patient request if the prescriptionis for a schedule II opioid drug., 168, cm, 06/20... Start Date: 06/20/21 Stop Date: 12/17/21 Status: Orderednicotine 21 mg/24 hr transdermal film, [...] 1 Refills, Maintenance, 03/25/21 15:25:00 EDT, Gum, [facility]/pharmacy #[id number], Partial fill upon patient request if the prescription is for a schedule II opioid drug., 168, c... Start Date: 03/25/21 Status: OrderedWellbutrin SR 100 mg/12 hours oral tablet, extended release See Instructions, 1 tablet By Mouth daily x 3 days; if well tolerated may increase to 1 tablet by mouth 2 times a day x 27 days, # 57 tablet, 0 Refills, Maintenance, 06/20/21 9:56:00 EDT, [facility]/pharmacy #[id number], Partial fill upon patient request if the pr... Start Date: 06/20/21 Status: Ordered Problem List Condition Effective Dates Status Health Status Informant Anxiety(Confirmed) Active Palpitations(Confirmed) Active Tobacco abuse(Confirmed) Active Diagnosis Diagnosis Type Effective Dates Health Status Clinical In formant Service Anxiety Discharge 06/20/21 Diagnosis Palpitations Discharge 06/20/21 Diagnosis Tobacco abuse Discharge 06/20/21 Diagnosis Vital Signs Most recent to oldest [Reference Range]: 1 Height 168 cm (06/20/21 9:04 AM) Weight 74.0 kg (06/20/21 9:04 AM) Oxygen Saturation [94-100 %] 98 % (06/20/21 9:04 AM) Pulse Rate [55-90 bpm] 70 bpm (06/20/21 9:04 AM) Body Mass Index [18.5-24.99] 26.22 *H* (06/20/21 9:04 AM) Blood Pressure [90-138/55-84 mm Hg] 112/66 mm Hg (06/20/21 9:04 AM) Respiratory Rate [16-30 br/min] 17 br/min (06/20/21 9:04 AM) Temperature [96.8-100.4 DegF] 97.6 DegF (06/20/21 9:04 AM) Liters per Minute 0 L/min (06/20/21 9:04 AM) Mode of Delivery (Oxygen) Room air (06/20/21 9:04 AM) Blood pressure sites Arm, left (06/20/21 9:04 AM) Temperature Route Temporal (06/20/21 9:04 AM) Weight Obtained Via Standing scale (06/20/21 9:04 AM) Social History Social History Type Response Smoking Status 10 or more cigarettes (1/2 p ack or more)/day in last 30 days entered on: 08/28/19 Sex
--- OUTSIDE RECORDS SUMMARY | 2022-10-08 04:59 | XMS_ITS | Continuity of Care Document ---
:1985 Author Organization [facility] Address [address] [place] [address]- Care Team Providers Name Role Phone Marco MILLS, Simi Primary Care Physician Encounter [facility] Date(s): 08/21/21 - 08/28/21 [facility] [employer] [facility] [address] [place] [address]- Attending Physician: Micah Montelongo MD Allergies, Adverse Reactions, Alerts Substance Reaction [...] oldest [Reference Range]: 1 Height 168 cm (08/21/21 3:24 PM) Social History Social History Type Response Smoking Status 10 or more cigarettes (1/2 p ack or more)/day in last 30 days entered on: 08/28/19 Sex
--- OUTSIDE RECORDS SUMMARY | 2022-10-08 04:59 | XMS_ITS | Continuity of Care Document ---
:1985 Author Organization [facility] Address [address] [place] [address]- Care Team Providers Name Role Phone Simi Lara NP Primary Care Physician Encounter [facility] Date(s): 04/14/22 - 05/14/22 [facility] [address] [place] [address]- [place] Allergies, Adverse Reactions, Alerts No Known [...] tablet, 0 Refills, Maintenance, 05/01/22 15:32:00 EDT, [facility]/pharmacy #[id number], Partial fill upon patient request if the presc... Start Date: 05/01/22 Status: Ordered Problem List Condition Effective Dates Status Health Status Informant Anxiety(Confirmed) Active Palpitations(Confirmed) Active Tobacco abuse(Confirmed) Active Social History Social History Type Response Smoking Status 10 or more cigarettes (1/2 p ack or more)/day in last 30 days entered on: 08/28/19 Sex
--- OUTSIDE RECORDS SUMMARY | 2022-10-08 04:59 | XMS_ITS | Continuity of Care Document ---
:1985 Author Organization [facility] Address [address] [place] [address]- Care Team Providers Name Role Phone Marco MILLS, Simi Primary Care Physician Encounter [facility] Date(s): 07/30/22 - 08/06/22 [facility] [address] [place] [address]- Encounter Diagnosis Anxiety (Discharge Diagnosis) - 07/30/22 Encounter for examination following treatment at hospital (Discharge Diagnosis) - 07/30/22 Attending Physician: Renato Duque Allergies, Adverse Reactions, Alerts No Known Allergies [...] Physician Stop08/30/22 11:10:00 EDT, 06/30/22 11:10:00 EDT, [facility]/pharmacy #[id number], 168, cm, 01/21/22 13:05:00 EST, Height Start Date: 06/30/22 Stop Date: 08/30/22 Status: OrderedhydrOXYzine hydrochloride 50 mg oral tablet See Instructions, TAKE 1 TABLET BY MOUTH TWICE A DAY NEEDED FOR ANXIETY FOR 90 DAYS, # 60 tablet,0 Refills, Maintenance, 07/31/22 12:04:00 EDT, [id number], 168, cm, 01/21/22 13:05:00 EST, Height Start [...] 1 Refills, Maintenance, 03/25/21 15:25:00 EDT, Gum, [facility]/pharmacy #[id number], Partial fill upon patient request if the prescription is for a schedule II opioid drug., 168, c... Start Date: 03/25/21 Status: Orderedsertraline 25 mg oral tablet See Instructions, TAKE 1 TABLET BY MOUTH DAILY X1 MONTH, THEN MAY INCREASE TO 2 TABLETS BY MOUTH DAILY X1 MONTH, # 90 tablet, 0 Refills, [id number], 168, cm, 01/21/22 13:05:00 EST, Height Start Date: 06/29/22 Status: Ordered Problem List Condition Effective Dates Status Health Status Informant Anxiety(Confirmed) Active Palpitations(Confirmed) Active Tobacco abuse(Confirmed) Active Diagnosis Diagnosis Type Effective Dates Health Clinical Infor mant Status Service Anxiety Discharge 07/30/22 Diagnosis Encounter for Discharge 07/30/22 examination Diagnosis following treatment at hospital Social History Social History Type Response Smoking Status 10 or more cigarettes (1/2 p ack or more)/day in last 30 days entered on: 08/28/19 Sex Care Team PersonnelName: Simi Lara NP Address: [address] [place] [address] [place] [address]
--- OUTSIDE RECORDS SUMMARY | 2022-10-08 04:59 | XMS_ITS | Continuity of Care Document ---
:1985 Author Organization [facility] Address [address] [place] [address]- Care Team Providers Name Role Phone Simi Lara NP Primary Care Physician Encounter [facility] Date(s): 04/14/22 - 05/14/22 [facility] [address] [place] [address]- [place] Allergies, Adverse Reactions, Alerts No Known [...] tablet, 0 Refills, Maintenance, 05/01/22 15:32:00 EDT, [facility]/pharmacy #[id number], Partial fill upon patient request if the presc... Start Date: 05/01/22 Status: Ordered Problem List Condition Effective Dates Status Health Status Informant Anxiety(Confirmed) Active Palpitations(Confirmed) Active Tobacco abuse(Confirmed) Active Social History Social History Type Response Smoking Status 10 or more cigarettes (1/2 p ack or more)/day in last 30 days entered on: 08/28/19 Sex
--- OUTSIDE RECORDS SUMMARY | 2022-10-08 04:59 | XMS_ITS | Continuity of Care Document ---
:1985 Author Organization [facility] Address [address] [place] [address]- Care Team Providers Name Role Phone Simi Lara NP Primary Care Physician Encounter [facility] Date(s): 05/01/22 - 05/08/22 [facility] [address] [place] [address]- Attending Physician: Simi Lara NP Allergies, Adverse [...] tablet, 0 Refills, Maintenance, 05/01/22 15:32:00 EDT, [facility]/pharmacy #[id number], Partial fill upon patient request if the presc... Start Date: 05/01/22 Status: Ordered Problem List Condition Effective Dates Status Health Status Informant Anxiety(Confirmed) Active Palpitations(Confirmed) Active Tobacco abuse(Confirmed) Active Social History Social History Type Response Smoking Status 10 or more cigarettes (1/2 p ack or more)/day in last 30 days entered on: 08/28/19 Sex
--- OUTSIDE RECORDS SUMMARY | 2022-10-08 04:59 | XMS_ITS | Continuity of Care Document ---
:1985 Author Organization [facility] Address [address] [place] [address]- Care Team Providers Name Role Phone Simi Lara NP Primary Care Physician Encounter [facility] Date(s): 04/15/22 - 05/15/22 [facility] [address] [place] [address]- [place] Allergies, Adverse Reactions, Alerts No Known [...] tablet, 0 Refills, Maintenance, 05/01/22 15:32:00 EDT, [facility]/pharmacy #[id number], Partial fill upon patient request if the presc... Start Date: 05/01/22 Status: Ordered Problem List Condition Effective Dates Status Health Status Informant Anxiety(Confirmed) Active Palpitations(Confirmed) Active Tobacco abuse(Confirmed) Active Social History Social History Type Response Smoking Status 10 or more cigarettes (1/2 p ack or more)/day in last 30 days entered on: 08/28/19 Sex
--- OUTSIDE RECORDS SUMMARY | 2022-10-08 04:59 | XMS_ITS | Continuity of Care Document ---
:1985 Author Organization [facility] Address [address] [place] [address]- Care Team Providers Name Role Phone Simi Lara NP Primary Care Physician Encounter [facility] Date(s): 04/17/22 - 05/17/22 [facility] [address] [place] [address]- [place] Allergies, Adverse Reactions, Alerts No Known [...] tablet, 0 Refills, Maintenance, 05/01/22 15:32:00 EDT, [facility]/pharmacy #[id number], Partial fill upon patient request if the presc... Start Date: 05/01/22 Status: Ordered Problem List Condition Effective Dates Status Health Status Informant Anxiety(Confirmed) Active Palpitations(Confirmed) Active Tobacco abuse(Confirmed) Active Social History Social History Type Response Smoking Status 10 or more cigarettes (1/2 p ack or more)/day in last 30 days entered on: 08/28/19 Sex
--- OUTSIDE RECORDS SUMMARY | 2022-10-08 04:59 | XMS_ITS | Continuity of Care Document ---
:1985 Author Organization [facility] Claire Lo [facility] Address [address] [place] [address]- Care Team Providers Name Role Phone Simi Lara NP Primary Care Physician Encounter [facility] Date(s): 07/31/22 - 08/30/22 [facility] Claire [facility] [place] [address] [place] [address]- Allergies, Adverse Reactions, Alerts No Known Allergies Immunizations Given and Recorded Vaccine Date Status Refusal Reason SARS-CoV-2 (COVID-19) mRNA BNT-162b2 vac 10/02/21 Recorde d SARS-CoV-2 (COVID-19) mRNA BNT-162b2 vac 12/31/20 Recorde d SARS-CoV-2 (COVID-19) mRNA BNT-162b2 vac 11/19/20 Recorde d influenza virus vaccine, inactivated 09/12/20 Recorded pneumococcal 23-valent vaccine 05/20/13 Recorded diphtheria/tetanus/pertussis, acel(DTaP) 05/20/13 Recorde d Medications LORazepam 0.5 mg oral tablet See Instructions, 1-2 tablets by mouth at bedtime for anxiety x 30 days, # 60 tablet, 0 Refills, Acute 09/11/22 17:12:00 EDT, 08/12/22 17:11:00 EDT, Tablet, [facility]/pharmacy #[id number], Partial fill upon patient request if the [...] information PersonnelName: Simi Lara NP Address: Address: [address] [place] [address] [place] [address]
--- OUTSIDE RECORDS SUMMARY | 2022-10-08 04:59 | XMS_ITS | Continuity of Care Document ---
:1985 Author Organization [facility] Address [address] [place] [phone]- Care Team Providers Name Role Phone Simi Lara NP Primary Care Physician Encounter [facility] [id number] Date(s): 08/12/22 - 08/19/22 [facility] [address] [place] [address]- Attending Physician: Claire Larsen MD Allergies, Adverse [...] Physician Stop08/30/22 11:10:00 EDT, 06/30/22 11:10:00 EDT, [facility]/pharmacy #[id number], 168, cm, 01/21/22 13:05:00 EST, Height Start Date: 06/30/22 Stop Date: 08/30/22 Status: OrderedLORazepam 0.5 mg oral tablet See Instructions, 1-2 tablets by mouth at bedtime for anxiety x 30 days, # 60 tablet, 0 Refills, Acute 09/11/22 17:12:00 EDT, 08/12/22 17:11:00 EDT, Tablet, [id number], Partial fill upon patient request if the prescription is for a schedule II... Start Date: 08/12/22 Stop Date: 09/11/22 Status: OrderedLORazepam 1 mg oral tablet See Instructions, 1 tablet as needed for anxiety. Will need to meet with PCP moving forward for possible contract., # 12 tablet, 0 Refills, Acute 08/21/22 13:42:00 EDT, 07/30/22 13:41:00 EDT, [facility]/pharmacy #[id number], Partial fill upon patient request if t... Start Date: 07/30/22 Stop Date: 08/21/22 Status: Ordered Problem List Condition Confirmation Course Effective Dates Status Health Stat us Informant Anxiety Confirmed Active Palpitations Confirmed Active Tobacco abuse Confirmed Active Vital Signs Most recent to oldest [Reference Range]: 1 Height 168 cm (08/12/22 1:56 PM) Weight 77.4 kg (08/12/22 1:56 PM) Oxygen Saturation [94-100 %] 97 % (08/12/22 1:56 PM) Pulse Rate [55-90 bpm] 97 bpm *H* (08/12/22 1:56 PM) Body Mass Index [18.5-24.99 kg/m2] 27.42 kg/m2 *H* (08/12/22 1:56 PM) Blood Pressure [90-138/55-84 mm Hg] 122/64 mm Hg (08/12/22 1:56 PM) Temperature [96.8-100.4 DegF] 97.8 DegF (08/12/22 1:56 PM) Liters per Minute 0 L/min (08/12/22 1:56 PM) Mode of Delivery (Oxygen) Room air (08/12/22 1:56 PM) Blood pressure sites Arm, left (08/12/22 1:56 PM) Temperature Route Temporal (08/12/22 1:56 PM) Weight Obtained Via Standing scale (08/12/22 1:56 PM) Social History Social History Type Response Smoking Status 10 or more cigarettes (1/2 p ack or more)/day in last 30 days entered on: 08/28/19 Sex Patient Care team information PersonnelName: Simi Lara NP Address: Address: [address] [place], [place] [address]bin Adult [facility] [place] [address]-
--- OUTSIDE RECORDS SUMMARY | 2022-10-08 05:00 | XMS_ITS | Continuity of Care Document ---
:1985 Author Organization [facility] Address [address] [place] [address]- Care Team Providers Name Role Phone Marco MILLS, Simi Primary Care Physician Encounter [facility] Date(s): 03/04/22 - 04/03/22 [facility] [address] [place] [address]- [place] Allergies, Adverse Reactions, Alerts No Known [...] tablet, 0 Refills, Physician Stop, [id number], 168, cm, 01/21/22 13:05:00 EST, Height Start Date: 02/05/22 Stop Date: 05/06/22 Status: Orderednicotine 21 mg/24 hr transdermal film, extended release 1 patch, Topically, Daily, # 30 patch, 1 Refills, Maintenance, 03/25/21 15:25:00 EDT, Patch, [facility]/pharmacy #[id number], Partial fill upon patient request if the prescription is for a schedule II opioid drug.,1 patch Topically Daily, 168, cm, 03/25/21 14:59:... Start Date: 03/25/21 Status: Orderednicotine 4 mg oral transmucosal gum 1 each = 4 mg, Chew, Every 2 hours, PRN as needed for smoking cessation, # 40 each, 1 Refills, Maintenance, 03/25/21 15:25:00 EDT, Gum, [facility]/pharmacy #[id number], Partial fill upon patient [...]
--- OUTSIDE RECORDS SUMMARY | 2022-10-08 05:00 | XMS_ITS | Continuity of Care Document ---
:1985 Author Organization [facility] Address [address] [place] [address]- Care Team Providers Name Role Phone Not on Staff, PCP Primary Care Physician Unavailable Encounter [facility] Date(s): 03/17/21 - 03/17/[address] [address]- Discharge Disposition: A-D/C Home Attending Physician: Arnaldo Keys DO Admitting Physician: Arnaldo Keys DO Referring Physician: Not on Staff, Referring MD Allergies, Adverse Reactions, Alerts Substance Reaction Severity Status NKA Active Problem List Condition Effective Dates Status Health Status Informant Breast pain(Confirmed) Active Vital Signs Most recent to oldest 1 2 3 [Reference Range]: Oxygen Saturation [94-100 %] 100 % 99 % 99 % (03/17/21 1:29 PM) (03/17/21 11:41 AM) (03/17/21 9: 25 AM) Pulse Rate [55-90 bpm] 69 bpm 81 bpm 85 bpm (03/17/21 1:29 PM) (03/17/21 11:41 AM) (03/17/21 9: 25 AM) Blood Pressure [90-138/55-84 106/56 mm Hg 106/69 mm Hg 123 /76 mm Hg mm Hg] (03/17/21 1:29 PM) (03/17/21 11:41 AM) (03/17/21 9: 25 AM) Respiratory Rate [16-30 16 br/min 18 br/min 20 br/mi n br/min] (03/17/21 1:29 PM) (03/17/21 11:41 AM) (03/17/21 9: 25 AM) Temperature [96.8-100.4 DegF] 98.3 DegF 97.6 DegF (03/17/21 11:41 AM) (03/17/21 9:25 AM) Mode of Delivery (Oxygen) Room air Room air Room a ir (03/17/21 1:29 PM) (03/17/21 11:41 AM) (03/17/21 9: 25 AM) Blood pressure sites Arm, right Arm, right Arm, left (03/17/21 1:29 PM) (03/17/21 11:41 AM) (03/17/21 9: 25 AM) Temperature Route Oral Oral (03/17/21 11:41 AM) (03/17/21 9:25 AM) Social History Social History Type Response Smoking Status 10 or more cigarettes (1/2 p ack or more)/day in last 30 days entered on: 08/28/19 Sex
--- OUTSIDE RECORDS SUMMARY | 2022-10-08 05:00 | XMS_ITS | Continuity of Care Document ---
:1985 Author Organization [facility] Address [address] [phone]- Care Team Providers Name Role Phone Simi Lara NP Primary Care Physician Encounter [facility] Date(s): 07/29/22 - 08/28/22 [facility] [address] [place] [address]- Allergies, Adverse Reactions, Alerts No Known Allergies [...] 17:12:00 EDT, 08/12/22 17:11:00 EDT, [facility]t, [id number], Partial fill upon patient request if the [...] information PersonnelName: Simi Lara NP Address: Address: [address] [place], [place] [address] [place], [place] [address]
--- OUTSIDE RECORDS SUMMARY | 2022-10-08 05:00 | XMS_ITS | Continuity of Care Document ---
:1985 Author Organization [facility] Address [address] [place] [address]- Care Team Providers Name Role Phone Marco MILLS, Simi Primary Care Physician Encounter [facility] Date(s): 01/22/22 - 02/21/22 [facility] [address] [place] [address]- [place] Allergies, Adverse Reactions, Alerts No Known [...] tablet, 1 Refills, Maintenance, 08/21/21 15:57:00 EDT, [facility]/pharmacy #[id number], 168, cm, 08/21/21 15:24:00 EDT, Height Start Date: 08/21/21 Stop Date: 10/20/21 Status: OrderedhydrOXYzine hydrochloride 50 mg oral tablet 1 tablet, By Mouth, 2 times a day, PRN NEEDED FOR ANXIETY FOR, for 90 days, # 60 tablet, 0 Refills, Physician Stop, [id number], 168, cm, 01/21/22 13:05:00 EST, Height Start [...]
--- OUTSIDE RECORDS SUMMARY | 2022-10-08 05:00 | XMS_ITS | Continuity of Care Document ---
:1985 Author Organization [facility] Address [address] [place] [address]- Care Team Providers Name Role Phone Not on Staff, PCP Primary Care Physician Unavailable Encounter [facility] Date(s): 12/15/19 - 04/13/20 [facility] [address] [place] [address]- [facility] Attending Physician: Noreen Garibay NP Admitting Physician: Noreen Garibay NP Referring Physician: Not on Staff, Referring MD Allergies, Adverse Reactions, Alerts Substance Reaction Severity Status NKA Active Problem List Condition Effective Dates Status Health Status Informant Breast pain(Confirmed) Active Social History Social History Type Response Smoking Status 10 or more cigarettes (1/2 p ack or more)/day in last 30 days entered on: 08/28/19 Sex
--- OUTSIDE RECORDS SUMMARY | 2022-10-08 05:00 | XMS_ITS | Continuity of Care Document ---
:1985 Author Organization [facility] Address [address] [place] [address]- Care Team Providers Name Role Phone Simi Lara NP Primary Care Physician Encounter [facility] Date(s): 04/14/22 - 05/14/22 [facility] [address] [place] [address]- [place] Allergies, Adverse Reactions, Alerts No Known [...] tablet, 0 Refills, Maintenance, 05/01/22 15:32:00 EDT, [facility]/pharmacy #[id number], Partial fill upon patient request if the presc... Start Date: 05/01/22 Status: Ordered Problem List Condition Effective Dates Status Health Status Informant Anxiety(Confirmed) Active Palpitations(Confirmed) Active Tobacco abuse(Confirmed) Active Social History Social History Type Response Smoking Status 10 or more cigarettes (1/2 p ack or more)/day in last 30 days entered on: 08/28/19 Sex
--- OUTSIDE RECORDS SUMMARY | 2022-10-08 05:00 | XMS_ITS | Continuity of Care Document ---
:1985 Author Organization [facility] Address [address] [place] [phone]- Care Team Providers Name Role Phone Simi Lara NP Primary Care Physician Encounter [facility] Date(s): 12/01/21 - 12/31/21 [facility] [address] [place] [phone]- Allergies, Adverse Reactions, Alerts No Known Allergies [...] tablet, 1 Refills, Maintenance, 08/21/21 15:57:00 EDT, [facility]/pharmacy #[id number], 168, cm, 08/21/21 15:24:00 EDT, Height Start Date: 08/21/21 Stop Date: 10/20/21 Status: OrderedhydrOXYzine hydrochloride 50 mg oral tablet 1 tablet, By Mouth, 2 times a day, PRN NEEDED FOR ANXIETY FOR, for 90 days, # 60 tablet, 2 Refills, Physician Stop, [id number], 168, cm, 10/22/21 8:50:00 EST, Height Start Date: 11/12/21 Stop Date: 02/10/22 Status: OrderedMetoprolol Tartrate 25 mg oral tablet 1 tablet = 25 mg, By Mouth, 2 times a day, # 60 tablet, 0 Refills, Maintenance, 10/22/21 10:13:00 EST, Tablet, [facility]/pharmacy #[id number], Partial fill upon patient request if the prescription is for a schedule II opioid drug., 168, cm, 10/22/21 8:50:00 EST,... Start Date: 10/22/21 Status: Orderednicotine 21 mg/24 hr transdermal film, extended release 1 patch, Topically, Daily, # 30 patch, 1 Refills, Maintenance, 03/25/21 15:25:00 EDT, Patch, [facility]/pharmacy #[id number], Partial fill upon patient request if the prescription is for a schedule II opioid drug.,1 patch Topically Daily, 168loida, 03/25/21 14:59:... Start Date: 03/25/21 Status: Orderednicotine 4 mg oral transmucosal gum 1 each = 4 mg, Chew, Every 2 hours, PRN as needed for smoking cessation, # 40 each, 1 Refills, Maintenance, 03/25/21 15:25:00 EDT, Gum, [facility]/pharmacy #[id number], Partial fill upon patient [...]
--- OUTSIDE RECORDS SUMMARY | 2022-10-08 05:00 | XMS_ITS | Continuity of Care Document ---
:1985 Author Organization [facility] Address [address] [place] [address]- Care Team Providers Name Role Phone Simi Lara NP Primary Care Physician Encounter [facility] [id number] Date(s): 10/22/21 - 12/31/21 [facility] [address] [place] [address]- Attending Physician: Claire Larsen MD Allergies, Adverse [...] tablet, 1 Refills, Maintenance, 08/21/21 15:57:00 EDT, [facility]/pharmacy #[id number], 168, cm, 08/21/21 15:24:00 EDT, Height Start Date: 08/21/21 Stop Date: 10/20/21 Status: OrderedhydrOXYzine hydrochloride 50 mg oral tablet 1 tablet, By Mouth, 2 times a day, PRN NEEDED FOR ANXIETY FOR, for 90 days, # 60 tablet, 2 Refills, Physician Stop, [facility], 168, cm, 10/22/21 8:50:00 EST, Height Start Date: 11/12/21 Stop Date: 02/10/22 Status: OrderedMetoprolol Tartrate 25 mg oral tablet 1 tablet = 25 mg, By Mouth, 2 times a day, # 60 tablet, 0 Refills, Maintenance, 10/22/21 10:13:00 EST, Tablet, [facility]/pharmacy #[id number], Partial fill upon patient request [...] schedule II opioid drug.,1 patch Topically Daily, 168 cm, 03/25/21 14:59:... Start Date: 03/25/21 Status: Orderednicotine 4 mg oral transmucosal gum 1 each = 4 mg, Chew, Every 2 hours, PRN as needed for smoking cessation, # 40 each, 1 Refills, Maintenance, 03/25/21 15:25:00 EDT, Gum, [facility]/pharmacy #[id number], Partial fill upon patient request [...]
--- OUTSIDE RECORDS SUMMARY | 2022-10-08 05:00 | XMS_ITS | Continuity of Care Document ---
:1985 Author Organization [facility] Address [address] [place] [address]- Care Team Providers Name Role Phone Marco MILLS, Simi Primary Care Physician Encounter [facility] Date(s): 04/10/22 - 05/10/22 [facility] [facility] [address] [place] [address]- [place] Allergies, Adverse Reactions, Alerts No Known [...] tablet, 0 Refills, Maintenance, 05/01/22 15:32:00 EDT, [facility]/pharmacy #[id number], Partial fill upon patient request if the presc... Start Date: 05/01/22 Status: Ordered Problem List Condition Effective Dates Status Health Status Informant Anxiety(Confirmed) Active Palpitations(Confirmed) Active Tobacco abuse(Confirmed) Active Social History Social History Type Response Smoking Status 10 or more cigarettes (1/2 p ack or more)/day in last 30 days entered on: 08/28/19 Sex
--- OUTSIDE RECORDS SUMMARY | 2022-10-08 05:00 | XMS_ITS | Continuity of Care Document ---
:1985 Author Organization [facility] Address [address] [phone]- Care Team Providers Name Role Phone Simi Lara NP Primary Care Physician Encounter [facility] Date(s): 06/12/22 - 07/12/22 [facility] [address] [place] [address]- Allergies, Adverse Reactions, Alerts No Known Allergies [...] 1 Refills, Maintenance, 03/25/21 15:25:00 EDT, Gum, [facility]/pharmacy #[id number], Partial fill upon patient request if the prescription is for a schedule II opioid drug., 168, c... Start Date: 03/25/21 Status: Orderedsertraline 25 mg oral tablet See Instructions, TAKE 1 TABLET BY MOUTH DAILY X1 MONTH, THEN MAY INCREASE TO 2 TABLETS BY MOUTH DAILY X1 MONTH, # 90 tablet, 0 Refills, [id number], 168, cm, 01/21/22 13:05:00 EST, Height Start Date: 06/29/22 Status: Ordered Problem List Condition Effective Dates Status Health Status Informant Anxiety(Confirmed) Active Palpitations(Confirmed) Active Tobacco abuse(Confirmed) Active Social History Social History Type Response Smoking Status 10 or more cigarettes (1/2 p ack or more)/day in last 30 days entered on: 08/28/19 Sex
--- OUTSIDE RECORDS SUMMARY | 2022-10-08 05:00 | XMS_ITS | Continuity of Care Document ---
:1985 Author Organization [facility] Address [address] [phone]- Care Team Providers Name Role Phone Simi Lara NP Primary Care Physician [id number] Date(s): 12/01/21 - 12/08/21 [facility] [address] [phone]- Attending Physician: Simi Lara NP Allergies, Adverse [...] tablet, 1 Refills, Maintenance, 08/21/21 15:57:00 EDT, [facility]/pharmacy #[id number], 168, cm, 08/21/21 15:24:00 EDT, Height Start Date: 08/21/21 Stop Date: 10/20/21 Status: OrderedhydrOXYzine hydrochloride 50 mg oral tablet 1 tablet, By Mouth, 2 times a day, PRN NEEDED FOR ANXIETY FOR, for 90 days, # 60 tablet, 2 Refills, Physician Stop, [id number], 168, cm, 10/22/21 8:50:00 EST, Height Start Date: 11/12/21 Stop Date: 3/22/22 Status: OrderedMetoprolol Tartrate 25 mg oral tablet 1 tablet = 25 mg, By Mouth, 2 times a day, # 60 tablet, 0 Refills, Maintenance, 10/22/21 10:13:00 EST, Tablet, [facility]/pharmacy #[id number], Partial fill upon patient request if the prescription is for a schedule II opioid drug., 168loida, 10/22/21 8:50:00 EST,... Start Date: 10/22/21 Status: [...] 1 Refills, Maintenance, 03/25/21 15:25:00 EDT, Gum, [facility]/pharmacy #[id number], Partial fill upon patient request if the prescription is for a schedule II opioid drug., 168, c... Start Date: 03/25/21 Status: Ordered Problem List Condition Effective Dates Status Health Status Informant Anxiety(Confirmed) Active Palpitations(Confirmed) Active Tobacco abuse(Confirmed) Active Vital Signs Most recent to oldest [Reference Range]: 1 Height 168 cm (12/01/21 1:28 PM) Social History Social History Type Response Smoking Status 10 or more cigarettes (1/2 p ack or more)/day in last 30 days entered on: 08/28/19 Sex
--- OUTSIDE RECORDS SUMMARY | 2022-10-08 05:00 | XMS_ITS | Continuity of Care Document ---
:1985 Author Organization [facility] [employer] [facility] Address [address] [phone]- Care Team Providers Name Role Phone Simi Lara NP Primary Care Physician [id number] Date(s): 06/29/22 - 07/29/22 [facility] [employer] [facility] [address] [place] [address]- Allergies, Adverse Reactions, Alerts No Known Allergies [...] 1 Refills, Maintenance, 03/25/21 15:25:00 EDT, Gum, [facility]/pharmacy #[id number], Partial fill upon patient request if the prescription is for a schedule II opioid drug., 168, c... Start Date: 03/25/21 Status: Orderedsertraline 25 mg oral tablet See Instructions, TAKE 1 TABLET BY MOUTH DAILY X1 MONTH, THEN MAY INCREASE TO 2 TABLETS BY MOUTH DAILY X1 MONTH, # 90 tablet, 0 Refills, [id number], 168, cm, 01/21/22 13:05:00 EST, Height Start Date: 06/29/22 Status: Ordered Problem List Condition Effective Dates Status Health Status Informant Anxiety(Confirmed) Active Palpitations(Confirmed) Active Tobacco abuse(Confirmed) Active Social History Social History Type Response Smoking Status 10 or more cigarettes (1/2 p ack or more)/day in last 30 days entered on: 08/28/19 Sex Care Team PersonnelName: Simi Lara NP Address: [address] [place] [address] [facility] [place] [address]
--- OUTSIDE RECORDS SUMMARY | 2022-10-08 05:00 | XMS_ITS | Continuity of Care Document ---
:1985 Author Organization [facility] Address [address] [place] [address]- Care Team Providers Name Role Phone Marco MILLS, Simi Primary Care Physician Encounter [facility] Date(s): 04/21/22 - 05/21/22 [facility] [address] [place] [address]- [place] Allergies, Adverse Reactions, Alerts No Known [...] tablet, 0 Refills, Maintenance, 05/01/22 15:32:00 EDT, [facility]/pharmacy #[id number], Partial fill upon patient request if the presc... Start Date: 05/01/22 Status: Ordered Problem List Condition Effective Dates Status Health Status Informant Anxiety(Confirmed) Active Palpitations(Confirmed) Active Tobacco abuse(Confirmed) Active Social History Social History Type Response Smoking Status 10 or more cigarettes (1/2 p ack or more)/day in last 30 days entered on: 08/28/19 Sex
--- OUTSIDE RECORDS SUMMARY | 2022-10-08 05:00 | XMS_ITS | Continuity of Care Document ---
:1985 Author Organization [facility] Address [address] [place] [address]- Care Team Providers Name Role Phone Simi Lara NP Primary Care Physician Encounter [facility] Date(s): 04/14/22 - 05/14/22 [facility] [address] [place] [address]- [place] Allergies, Adverse Reactions, Alerts No Known [...] tablet, 0 Refills, Maintenance, 05/01/22 15:32:00 EDT, [facility]/pharmacy #[id number], Partial fill upon patient request if the presc... Start Date: 05/01/22 Status: Ordered Problem List Condition Effective Dates Status Health Status Informant Anxiety(Confirmed) Active Palpitations(Confirmed) Active Tobacco abuse(Confirmed) Active Social History Social History Type Response Smoking Status 10 or more cigarettes (1/2 p ack or more)/day in last 30 days entered on: 08/28/19 Sex
--- OUTSIDE RECORDS SUMMARY | 2022-10-08 05:00 | XMS_ITS | Continuity of Care Document ---
:1985 Author Organization [facility] Address [address], [address] [place] [address]- Care Team Providers Name Role Phone Marco MILLS, Simi Primary Care Physician Encounter 01/28/22 - 02/04/22 [facility] [address], [address] [place] [address]- Attending Physician: Claire Larsen MD Admitting Physician: Claire Larsen MD Referring Physician: Claire Larsen MD Allergies, Adverse Reactions, [...] tablet, 1 Refills, Maintenance, 08/21/21 15:57:00 EDT, [facility]/pharmacy #[id number], 168, cm, 08/21/21 15:24:00 EDT, Height Start Date: 08/21/21 Stop Date: 10/20/21 Status: OrderedhydrOXYzine hydrochloride 50 mg oral tablet 1 tablet, By Mouth, 2 times a day, PRN NEEDED FOR ANXIETY FOR, for 90 days, # 60 tablet, 2 Refills, Physician Stop, [id number], 168, cm, 10/22/21 8:50:00 EST, Height Start [...]
--- OUTSIDE RECORDS SUMMARY | 2022-10-08 05:00 | XMS_ITS | Continuity of Care Document ---
:1985 Author Organization [facility] Address [address] [place] [address]- Care Team Providers Name Role Phone Simi Lara NP Primary Care Physician Encounter [facility] Date(s): 04/14/22 - 05/14/22 [facility] [address] [place] [address]- [place] Allergies, Adverse Reactions, Alerts No Known [...] tablet, 0 Refills, Maintenance, 05/01/22 15:32:00 EDT, [facility]/pharmacy #[id number], Partial fill upon patient request if the presc... Start Date: 05/01/22 Status: Ordered Problem List Condition Effective Dates Status Health Status Informant Anxiety(Confirmed) Active Palpitations(Confirmed) Active Tobacco abuse(Confirmed) Active Social History Social History Type Response Smoking Status 10 or more cigarettes (1/2 p ack or more)/day in last 30 days entered on: 08/28/19 Sex
--- OUTSIDE RECORDS SUMMARY | 2022-10-08 05:00 | XMS_ITS | Continuity of Care Document ---
:1985 Author Organization [facility] [employer] [facility] Adult [facility] Address [address] [place] [address]- Care Team Providers Name Role Phone Simi Lara NP Primary Care Physician Encounter [facility] Date(s): 08/03/22 - 09/02/22 [facility] [address] [place] [address]- Referring Physician: Estevan Richard Allergies, Adverse Reactions, Alerts No Known Allergies [...] 17:12:00 EDT, 08/12/22 17:11:00 EDT, Tablet, [id number], Partial fill upon patient request if the [...] information PersonnelName: Simi Lara NP Address: Address: [address] [place] [id number]
--- OUTSIDE RECORDS SUMMARY | 2022-10-08 05:00 | XMS_ITS | Continuity of Care Document ---
:1985 Author Organization [facility] Address [address] [place] [address]- Care Team Providers Name Role Phone Not on Staff, PCP Primary Care Physician Unavailable Encounter [facility] Date(s): 03/14/20 - 04/13/20 [facility] [address] [place] [address]- [facility] Attending Physician: Srini Teran Admitting Physician: Srini Teran Referring Physician: Srini Teran Allergies, Adverse Reactions, Alerts Substance Reaction Severity Status NKA Active Problem List Condition Effective Dates Status Health Status Informant Breast pain(Confirmed) Active Social History Social History Type Response Smoking Status 10 or more cigarettes (1/2 p ack or more)/day in last 30 days entered on: 08/28/19 Sex
--- OUTSIDE RECORDS SUMMARY | 2022-10-08 05:00 | XMS_ITS | Continuity of Care Document ---
:1985 Author Organization [facility] Address [address] [phone]- Care Team Providers Name Role Phone Simi Lara NP Primary Care Physician Encounter [facility] Date(s): 06/18/22 - 07/18/22 [facility] [address] [place] [address]- Allergies, Adverse Reactions, Alerts No Known Allergies [...] 1 Refills, Maintenance, 03/25/21 15:25:00 EDT, Gum, [facility]/pharmacy #[id number], Partial fill upon patient request if the prescription is for a schedule II opioid drug., 168, c... Start Date: 03/25/21 Status: Orderedsertraline 25 mg oral tablet See Instructions, TAKE 1 TABLET BY MOUTH DAILY X1 MONTH, THEN MAY INCREASE TO 2 TABLETS BY MOUTH DAILY X1 MONTH, # 90 tablet, 0 Refills, [id number], 168, cm, 01/21/22 13:05:00 EST, Height Start Date: 06/29/22 Status: Ordered Problem List Condition Effective Dates Status Health Status Informant Anxiety(Confirmed) Active Palpitations(Confirmed) Active Tobacco abuse(Confirmed) Active Social History Social History Type Response Smoking Status 10 or more cigarettes (1/2 p ack or more)/day in last 30 days entered on: 08/28/19 Sex Care Team PersonnelName: Simi Lara NP Address: [address] [place] [address] [facility] [place], [place] [address]
--- OUTSIDE RECORDS SUMMARY | 2022-10-08 05:00 | XMS_ITS | Continuity of Care Document ---
:1985 Author Organization [facility] Address [address] [phone]- Care Team Providers Name Role Phone Simi Lara NP Primary Care Physician Encounter [facility] NBR [id number] Date(s): 01/21/22 - 02/20/22 [facility] [address] [place] [address]- Attending Physician: Srini Teran Admitting Physician: AdmSrini mcbride Referring Physician: AdmtrSrini Allergies, Adverse Reactions, Alerts No Known Allergies [...] tablet, 1 Refills, Maintenance, 08/21/21 15:57:00 EDT, [facility]/pharmacy #[id number], 168, cm, 08/21/21 15:24:00 EDT, Height Start Date: 08/21/21 Stop Date: 10/20/21 Status: OrderedhydrOXYzine hydrochloride 50 mg oral tablet 1 tablet, By Mouth, 2 times a day, PRN NEEDED FOR ANXIETY FOR, for 90 days, # 60 tablet, 0 Refills, Physician Stop, [facility]ORE [id number], 168, cm, 01/21/22 13:05:00 EST, Height Start [...]
--- OUTSIDE RECORDS SUMMARY | 2022-10-08 05:00 | XMS_ITS | Continuity of Care Document ---
:1985 Author Organization [facility] [employer] [facility] Address [address] [phone]- Care Team Providers Name Role Phone Simi Lara NP Primary Care Physician Encounter [facility] NBR [id number] Date(s): 09/04/22 - 09/11/22 [facility] [employer] [facility] [address] [place], [place] [phone]- [place] Encounter Diagnosis Anxiety (Discharge Diagnosis) - 09/04/22 Attending Physician: Simi Lara NP Allergies, Adverse Reactions, Alerts No Known Allergies Immunizations Given and Recorded Vaccine Date Status Refusal Reason SARS-CoV-2 (COVID-19) mRNA BNT-162b2 vac 10/02/21 Recorde d SARS-CoV-2 (COVID-19) mRNA BNT-162b2 vac 12/31/20 Recorde d SARS-CoV-2 (COVID-19) mRNA BNT-162b2 vac 11/19/20 Recorde d influenza virus vaccine, inactivated 09/12/20 Recorded pneumococcal 23-valent vaccine 05/20/13 Recorded diphtheria/tetanus/pertussis, acel(DTaP) 05/20/13 Recorde d Medications busPIRone 7.5 mg oral tablet 1 tablet = 7.5 mg, By Mouth, 2 times a day, # 60 tablet, 5 Refills, Maintenance, 09/04/22 14:55:00 EDT, [facility]/pharmacy #[id number], Partial fill upon patient request if the prescription is for a schedule II opioid drug., 168, cm, 09/04/22 13:55:00 EDT, Height Start Date: 09/04/22 Status: Ordered Problem List Condition Confirmation Course Effective Dates Status Health Stat us Informant Anxiety Confirmed Active Palpitations Confirmed Active Tobacco abuse Confirmed Active Diagnosis Diagnosis Type Effective Dates Health Status Clinical Serv ice Informant Anxiety Discharge 09/04/22 Diagnosis Vital Signs Most recent to oldest [Reference Range]: 1 Height 168 cm (09/04/22 1:55 PM) Social History Social History Type Response Smoking Status 10 or more cigarettes (1/2 p ack or more)/day in last 30 days entered on: 08/28/19 Sex Patient Care team information PersonnelName: Simi Lara NP Address: Address: [address] [place] [id number]
--- OUTSIDE RECORDS SUMMARY | 2022-10-08 05:00 | XMS_ITS | Continuity of Care Document ---
:1985 Author Organization [facility] [employer] [facility] Address [address] [place] [address]- Care Team Providers Name Role Phone Simi Lara NP Primary Care Physician Encounter [facility] Date(s): 04/21/22 - 05/21/22 [facility] [address] [place] [address]- [place] Allergies, Adverse Reactions, Alerts No Known [...] tablet, 0 Refills, Maintenance, 05/01/22 15:32:00 EDT, [facility]/pharmacy #[id number], Partial fill upon patient request if the presc... Start Date: 05/01/22 Status: Ordered Problem List Condition Effective Dates Status Health Status Informant Anxiety(Confirmed) Active Palpitations(Confirmed) Active Tobacco abuse(Confirmed) Active Social History Social History Type Response Smoking Status 10 or more cigarettes (1/2 p ack or more)/day in last 30 days entered on: 08/28/19 Sex
--- OUTSIDE RECORDS SUMMARY | 2022-10-08 05:00 | XMS_ITS | Continuity of Care Document ---
:1985 Author Organization [facility] [email or web address] [facility] Address [address] [place] [address]- Care Team Providers Name Role Phone Simi Lara NP Primary Care Physician Encounter [facility] Date(s): 04/15/22 - 05/15/22 [facility] [email or web address] [facility] [address] [phone]- [place] Allergies, Adverse Reactions, Alerts No Known [...] Maintenance, 05/01/22 15:32:00 EDT, [facility]/pharmacy #[id number], Partial fill upon patient request if the presc... Start Date: 05/01/22 Status: Ordered Problem List Condition Effective Dates Status Health Status Informant Anxiety(Confirmed) Active Palpitations(Confirmed) Active Tobacco abuse(Confirmed) Active Social History Social History Type Response Smoking Status 10 or more cigarettes (1/2 p ack or more)/day in last 30 days entered on: 08/28/19 Sex
--- OUTSIDE RECORDS SUMMARY | 2022-10-08 05:00 | XMS_ITS | Continuity of Care Document ---
:1985 Author Organization [facility] [employer] [facility] Address [address] [place] [address]- Care Team Providers Name Role Phone Renato Chowdhury Primary Care Physician [id number] Date(s): 03/25/21 - 05/22/21 [facility] [employer] [facility] [address] [place] [address]- Attending Physician: Micah Montelongo MD Allergies, Adverse [...] 1 tablet = 50 mg, By Mouth, 4 times a day, PRN for anxiety, # 40 tablet, 1 Refills, Maintenance, 05/09/21 16:15:00 EDT, [facility], [id number], Partial fill upon patient request if the prescriptionis for a schedule II opioid drug., 168, cm, 03/25... Start Date: 05/09/21 Status: Orderednicotine 21 mg/24 hr transdermal film, [...] 1 Refills, Maintenance, 03/25/21 15:25:00 EDT, Gum, [facility]/pharmacy #[id number], Partial fill upon patient request if the [...]
--- OUTSIDE RECORDS SUMMARY | 2022-10-08 05:00 | XMS_ITS | Continuity of Care Document ---
:1985 Author Organization [facility] [facility] Address [address] [phone]- Care Team Providers Name Role Phone Simi Lara NP Primary Care Physician Encounter [facility] Date(s): 01/15/22 - 02/14/22 [facility] [address] [phone]- Allergies, Adverse Reactions, Alerts No Known Allergies [...] tablet, 1 Refills, Maintenance, 08/21/21 15:57:00 EDT, [facility]/pharmacy #[id number], 168, cm, 08/21/21 15:24:00 EDT, Height Start Date: 08/21/21 Stop Date: 10/20/21 Status: OrderedhydrOXYzine hydrochloride 50 mg oral tablet 1 tablet, By Mouth, 2 times a day, PRN NEEDED FOR ANXIETY FOR, for 90 days, # 60 tablet, 0 Refills, Physician Stop, [id number], 168, cm, 01/21/22 13:05:00 EST, Height Start [...]
--- OUTSIDE RECORDS SUMMARY | 2022-10-08 05:00 | XMS_ITS | Continuity of Care Document ---
:1985 Author Organization [facility] Address [address] [phone]- Care Team Providers Name Role Phone Simi Lara NP Primary Care Physician Encounter [facility] Date(s): 10/22/21 - 10/29/21 [facility] [address] [place] [address]- Encounter Diagnosis Palpitations (Discharge Diagnosis) - 10/22/21 Attending Physician: Simi Lara NP Allergies, Adverse [...] prescriptionis for a schedule II opioid drug., loida Blue, 06/20... Start Date: 06/20/21 Stop Date: 12/17/21 Status: OrderedMetoprolol Tartrate 25 mg oral tablet 1 tablet = 25 mg, By Mouth, 2 times a day, # 60 tablet, 0 Refills, Maintenance, 10/22/21 10:13:00 EST, Tablet, [facility]/pharmacy #[id number], Partial fill upon patient request if the prescription is for a schedule II opioid drug., 168loida, 10/22/21 8:50:00 EST,... Start Date: 10/22/21 Status: Orderednicotine 21 mg/24 hr transdermal film, extended release 1 patch, Topically, Daily, # 30 patch, 1 Refills, Maintenance, 03/25/21 15:25:00 EDT, Patch, [facility]/pharmacy #[id number], Partial fill upon patient request if the prescription is for a schedule II opioid drug.,1 patch Topically Daily, loida Blue, 03/25/21 14:59:... Start Date: 03/25/21 Status: Orderednicotine 4 mg oral transmucosal gum 1 each = 4 mg, Chew, Every 2 hours, PRN as needed for smoking cessation, # 40 each, 1 Refills, Maintenance, 03/25/21 15:25:00 EDT, Gum, [facility]/pharmacy #[id number], Partial fill upon patient request if the prescription is for a schedule II opioid drug., 168, c... Start Date: 03/25/21 Status: Ordered Problem List Condition Effective Dates Status Health Status Informant Anxiety(Confirmed) Active Palpitations(Confirmed) Active Tobacco abuse(Confirmed) Active Diagnosis Diagnosis Type Effective Dates Health Status Clinical In formant Service Palpitations Discharge 10/22/21 Diagnosis Vital Signs Most recent to oldest [Reference Range]: 1 Height 168 cm (10/22/21 8:50 AM) Social History Social History Type Response Smoking Status 10 or more cigarettes (1/2 p ack or more)/day in last 30 days entered on: 08/28/19 Sex
--- OUTSIDE RECORDS SUMMARY | 2022-10-08 05:00 | XMS_ITS | Continuity of Care Document ---
:[address] [facility] Address [address] [place] [address]- Care Team Providers Name Role Phone Renato Chowdhury Primary Care Physician Encounter [facility] NBR [id number] Date(s): 05/16/21 - 06/15/21 [facility] [address] [place], [place] [address] Allergies, Adverse Reactions, Alerts Substance Reaction Severity [...] Refills, Maintenance, 03/25/21 15:25:00 EDT, [facility], [id number], Partial fill upon patient request if the [...]
--- OUTSIDE RECORDS SUMMARY | 2022-10-08 05:00 | XMS_ITS | Continuity of Care Document ---
:1985 Author Organization [facility] Address [address] [phone]- Care Team Providers Name Role Phone Simi Lara NP Primary Care Physician Encounter [facility] Date(s): 08/12/21 - 08/19/21 [facility] [address] [place] [address]- Encounter Diagnosis Anxiety (Discharge Diagnosis) - 08/12/21 Attending Physician: Simi Lara NP Allergies, Adverse [...] day, # 60 tablet, 0 Refills, Maintenance, 07/14/21 15:30:00 EDT, [id number], 168, cm, 06/20/21 9:04:00 EDT, Height Start Date: 07/14/21 Stop Date: 08/13/21 Status: OrderedhydrOXYzine hydrochloride 50 mg oral tablet [...] Status Clinical Serv ice Informant Anxiety Discharge 08/12/21 Diagnosis Vital Signs Most recent to oldest [Reference Range]: 1 Height 168 cm (08/12/21 3:10 PM) Social History Social History Type Response Smoking Status 10 or more cigarettes (1/2 p ack or more)/day in last 30 days entered on: 08/28/19 Sex
--- OUTSIDE RECORDS SUMMARY | 2022-10-08 05:00 | XMS_ITS | Continuity of Care Document ---
:1985 Author Organization [facility] Address [address] [place] [address]- Care Team Providers Name Role Phone Simi Lara NP Primary Care Physician Encounter [facility] Date(s): 06/11/21 - 07/11/21 [facility] [address] [place] [address]- [place] Allergies, Adverse Reactions, Alerts Substance Reaction Severity [...] 1 Refills, Maintenance, 03/25/21 15:25:00 EDT, Gum, [facility]/pharmacy #[id number], Partial fill upon patient [...] tablet, 0 Refills, Maintenance, 06/20/21 9:56:00 EDT, [id number], Partial fill upon patient [...]
--- OUTSIDE RECORDS SUMMARY | 2022-10-08 05:00 | XMS_ITS | Continuity of Care Document ---
:1985 Author Organization [facility] Address [address] [place] [address]- Care Team Providers Name Role Phone Simi Lara NP Primary Care Physician Encounter [facility] Date(s): 07/28/22 - 08/27/22 [facility] [address] [place] [address]- Allergies, Adverse Reactions, Alerts No Known Allergies [...] 17:12:00 EDT, 08/12/22 17:11:00 EDT, Tablet, [id number], Partial fill upon patient request if the [...] information PersonnelName: Simi Lara NP Address: Address: [address] [place], [place] [address] [place], [place] [address]
--- OUTSIDE RECORDS SUMMARY | 2022-10-08 05:00 | XMS_ITS | Continuity of Care Document ---
:1985 Author Organization [facility] Address [address] [place] [address]- Care Team Providers Name Role Phone Marco MILLS, Simi Primary Care Physician Encounter [facility] Date(s): 02/20/22 - 03/22/22 [facility] [address] [place] [address]- [place] Allergies, Adverse Reactions, Alerts No Known [...] Physician Stop 04/11/22 17:01:00 EDT, 03/12/2217:01:00 EDT, [facility]/pharmacy #[id number], 168, cm, ... Start Date: 03/12/22 Stop Date: 04/11/22 Status: OrderedhydrOXYzine hydrochloride 50 mg oral tablet 1 tablet, By Mouth, 2 times a day, PRN NEEDED FOR ANXIETY FOR, for 90 days, # 60 tablet, 0 Refills, Physician Stop, [id number], 168, cm, 01/21/22 13:05:00 EST, Height Start Date: 02/05/22 Stop Date: 05/06/22 Status: Orderednicotine 21 mg/24 hr transdermal film, extended release 1 patch, Topically, Daily, # 30 patch, 1 Refills, Maintenance, 03/25/21 15:25:00 EDT, Patch, [facility]/pharmacy #[id number], Partial fill upon patient request if the prescription is for a schedule II opioid drug.,1 patch Topically Daily, 168, cm, 03/25/21 14:59:... Start Date: 03/25/21 Status: Orderednicotine 4 mg oral transmucosal gum 1 each = 4 mg, Chew, Every 2 hours, PRN as needed for smoking cessation, # 40 each, 1 Refills, Maintenance, 03/25/21 15:25:00 EDT, Gum, [facility]/pharmacy #[id number], Partial fill upon patient request [...]
--- OUTSIDE RECORDS SUMMARY | 2022-10-08 05:00 | XMS_ITS | Continuity of Care Document ---
:1985 Author Organization [facility] Address [address] [place] [address]- Care Team Providers Name Role Phone Renato Chowdhury Primary Care Physician [id number] Date(s): 03/25/21 - 04/01/21 [facility] [address] [place] [address]- Encounter Diagnosis Tobacco abuse (Discharge Diagnosis) - 03/25/21 Anxiety (Discharge Diagnosis) - 03/25/21 Palpitations (Discharge Diagnosis) - 03/25/21 Attending Physician: Renato Chowdhury Allergies, Adverse Reactions, Alerts Substance Reaction Severity Status NKA Active Immunizations Given and Recorded Vaccine Date Status Refusal Reason SARS-CoV-2 (COVID-19) mRNA BNT-162b2 vac 12/31/20 Recorde d SARS-CoV-2 (COVID-19) mRNA BNT-162b2 vac 11/19/20 Recorde d pneumococcal 23-valent vaccine 05/20/13 Recorded diphtheria/tetanus/pertussis, acel(DTaP) 05/20/13 Recorde d Medications hydrOXYzine hydrochloride 50 mg oral tablet 1 tablet = 50 mg, By Mouth, 4 times a day, PRN for anxiety, # 40 tablet, 1 Refills, Maintenance, 03/25/21 15:26:00 EDT, Tablet, [id number], Partial fill upon patient request if the prescriptionis for a schedule II opioid drug., 168, cm, 03/25... Start Date: 03/25/21 Stop Date: 04/22/21 Status: Orderednicotine 21 mg/24 hr transdermal film, [...] Dates Health Status Clinical In formant Service Tobacco abuse Discharge 03/25/21 Diagnosis Anxiety Discharge 03/25/21 Diagnosis Palpitations Discharge 03/25/21 Diagnosis Procedures Procedure Date Related Diagnosis Body Site Status Cholecystectomy Completed Vital Signs Most recent to oldest [Reference Range]: 1 Height 168 cm (03/25/21 2:59 PM) Weight 68.7 kg (03/25/21 2:59 PM) Oxygen Saturation [94-100 %] 98 % (03/25/21 2:59 PM) Pulse Rate [55-90 bpm] 87 bpm (03/25/21 2:59 PM) Body Mass Index [18.5-24.99] 24.34 (03/25/21 2:59 PM) Blood Pressure [90-138/55-84 mm Hg] 122/78 mm Hg (03/25/21 2:59 PM) Temperature [96.8-100.4 DegF] 98.4 DegF (03/25/21 2:59 PM) Liters per Minute 0 L/min (03/25/21 2:59 PM) Mode of Delivery (Oxygen) Room air (03/25/21 2:59 PM) Blood pressure sites Arm, left (03/25/21 2:59 PM) Temperature Route Temporal (03/25/21 2:59 PM) Weight Obtained Via Standing scale (03/25/21 2:59 PM) Social History Social History Type Response Smoking Status 10 or more cigarettes (1/2 p ack or more)/day in last 30 days entered on: 08/28/19 Sex
--- OUTSIDE RECORDS SUMMARY | 2022-10-08 05:00 | XMS_ITS | Continuity of Care Document ---
:1985 Author Organization [facility] Address [address] [place] [address]- Care Team Providers Name Role Phone Marco MILLS, Simi Primary Care Physician Encounter [facility] Date(s): 02/24/22 - 03/26/22 [facility] [address] [place] [address]- [place] Allergies, Adverse Reactions, Alerts No Known [...] tablet, 0 Refills, Physician Stop, [id number], 168, cm, 01/21/22 13:05:00 EST, Height Start Date: 02/05/22 Stop Date: 05/06/22 Status: Orderednicotine 21 mg/24 hr transdermal film, extended release 1 patch, Topically, Daily, # 30 patch, 1 Refills, Maintenance, 03/25/21 15:25:00 EDT, Patch, [facility]/pharmacy #[id number], Partial fill upon patient request if the prescription is for a schedule II opioid drug.,1 patch Topically Daily, 168, cm, 03/25/21 14:59:... Start Date: 03/25/21 Status: Orderednicotine 4 mg oral transmucosal gum 1 each = 4 mg, Chew, Every 2 hours, PRN as needed for smoking cessation, # 40 each, 1 Refills, Maintenance, 03/25/21 15:25:00 EDT, Gum, [facility]/pharmacy #[id number], Partial fill upon patient request [...]
--- OUTSIDE RECORDS SUMMARY | 2022-10-08 05:00 | XMS_ITS | Continuity of Care Document ---
:1985 Author Organization [facility] Address [address] [place] [address]- Care Team Providers Name Role Phone Not on Staff, PCP Primary Care Physician Unavailable Encounter [facility] Date(s): 09/05/19 - 04/13/[address] [address]- [facility] Attending Physician: Noreen Garibay NP Admitting Physician: Noreen Garibay NP Referring Physician: Noreen Garibay NP Allergies, Adverse Reactions, Alerts Substance Reaction Severity Status NKA Active Problem List Condition Effective Dates Status Health Status Informant Breast pain(Confirmed) Active Social History Social History Type Response Smoking Status 10 or more cigarettes (1/2 p ack or more)/day in last 30 days entered on: 08/28/19 Sex
--- OUTSIDE RECORDS SUMMARY | 2022-10-08 05:00 | XMS_ITS | Continuity of Care Document ---
:1985 Author Organization [facility] Address [address] [place] [address]- Care Team Providers Name Role Phone Marco MILLS, Simi Primary Care Physician Encounter [facility] Date(s): 04/21/22 - 05/21/22 [facility] [address] [place] [address]- [place] Allergies, Adverse Reactions, Alerts No Known [...] 15:32:00 EDT, [facility]/pharmacy #[id number], Partial fill upon patient request if the presc... Start Date: 05/01/22 Status: Ordered Problem List Condition Effective Dates Status Health Status Informant Anxiety(Confirmed) Active Palpitations(Confirmed) Active Tobacco abuse(Confirmed) Active Social History Social History Type Response Smoking Status 10 or more cigarettes (1/2 p ack or more)/day in last 30 days entered on: 08/28/19 Sex
--- OUTSIDE RECORDS SUMMARY | 2022-10-08 05:00 | XMS_ITS | Continuity of Care Document ---
:1985 Author Organization [facility] Address [address] [place] [address]- Care Team Providers Name Role Phone Simi Lara NP Primary Care Physician Encounter [facility] Date(s): 04/16/22 - 05/16/22 [facility] [address] [place] [address]- [place] Allergies, Adverse Reactions, Alerts No Known [...] 0 Refills, Maintenance, 05/01/22 15:32:00 EDT, [facility]/pharmacy #[id number], Partial fill upon patient request if the presc... Start Date: 05/01/22 Status: Ordered Problem List Condition Effective Dates Status Health Status Informant Anxiety(Confirmed) Active Palpitations(Confirmed) Active Tobacco abuse(Confirmed) Active Social History Social History Type Response Smoking Status 10 or more cigarettes (1/2 p ack or more)/day in last 30 days entered on: 08/28/19 Sex
--- OUTSIDE RECORDS SUMMARY | 2022-10-08 05:00 | XMS_ITS | Continuity of Care Document ---
:1985 Author Organization [facility] Address [address] [place] [address]- Care Team Providers Name Role Phone Simi Lara NP Primary Care Physician Encounter [facility] Date(s): 04/15/22 - 05/15/22 [facility] [address] [place] [address]- [place] Allergies, Adverse Reactions, Alerts No Known [...] 05/01/22 15:32:00 EDT, [facility]/pharmacy #[id number], Partial fill upon patient request if the presc... Start Date: 05/01/22 Status: Ordered Problem List Condition Effective Dates Status Health Status Informant Anxiety(Confirmed) Active Palpitations(Confirmed) Active Tobacco abuse(Confirmed) Active Social History Social History Type Response Smoking Status 10 or more cigarettes (1/2 p ack or more)/day in last 30 days entered on: 08/28/19 Sex
--- OUTSIDE RECORDS SUMMARY | 2022-10-08 05:00 | XMS_ITS | Continuity of Care Document ---
:1985 Author Organization [facility] Address [address] [place] [address]- Care Team Providers Name Role Phone Renato Chowdhury Primary Care Phys[id number] Date(s): 05/09/21 - 06/08/21 [facility] [address] [place], [place] [address] Allergies, Adverse Reactions, Alerts Substance Reaction Severity [...] Refills, Maintenance, 03/25/21 15:25:00 EDT, Gum, [id number], Partial fill upon patient request if the [...]
[2022-10-08 05:23] VITALS: BP 103/66; PULSE 76; RESP 17; TEMP 36.7; O2SAT 96
[2022-10-08 05:32] LABS: Appearance Urine Cloudy; Color Urine Dark Yellow; Glucose Urine UA Negative (Negative); Leukocyte Esterase Urine Small (1+) (Negative); Nitrite Urine Negative (Negative); PH 5.5 (5.0-9.0); Specific Gravity - Urine >= 1.030 (1.005-1.025); UMIC TRIGGER UACC YES; Urine Blood Moderate (2+) (Negative); Urine Ketones >=160 mg/dL (Negative); Urine Protein Negative (Neg-Trace)
--- NOTE | 2022-10-08 05:32 | ED.ABDPAIN ---
HPI - Abdominal Pain General Chief Complaint: Abdominal Pain Stated Complaint: stomach pain, loss of appetite, late period Time Seen by Provider: 10/08/22 04:44 Source: patient Mode of arrival: ambulatory History of Present Illness HPI narrative: 37-year-old female who presents with upper abdominal discomfort that is been associated with nausea but denies vomiting and has had a previous history of cholecystectomy, otherwise denies any sick contacts, diarrhea but is reporting some urinary burning and frequency. She otherwise denies any fevers or chills. Related Data Previous Rx's Medication Instructions Recorded lorazepam 0.5 mg tablet (Ativan) 0.5 mg PO TID PRN anxiety #10 tabs 03/19/21 nitrofurantoin 100 mg PO Q12H 7 days #14 caps 01/15/22 monohydrate/macrocrystals 100 mg capsule (Macrobid) lorazepam 1 mg tablet (Ativan) 1 mg PO Q8H PRN anxiety #14 tabs 04/06/22 doxycycline monohydrate 100 mg 100 mg PO BID 21 days #42 caps 04/12/22 capsule amoxicillin 875 mg-potassium 1 tab PO Q12H 10 days #20 tabs 05/31/22 clavulanate 125 mg tablet oxycodone 5 mg capsule 5 mg PO Q8H PRN pain 3 days #9 caps 05/31/22 lorazepam 1 mg tablet (Ativan) 1 mg PO BID PRN anxiety #10 tabs 07/25/22 lorazepam 1 mg tablet (Ativan) 1 mg PO BID PRN anxiety #10 tabs 07/25/22 promethazine 25 mg tablet 25 mg PO Q6H PRN nausea and 07/25/22 vomiting #20 tabs ondansetron 4 mg disintegrating 4 mg PO Q6H PRN nausea and 08/01/22 tablet vomiting #14 tabs ondansetron 4 mg disintegrating 4 mg PO Q8H PRN nausea and 10/08/22 tablet vomiting #10 tabs Allergies Allergy/AdvReac Type Severity Reaction Status Date / Time No Known Allergies Allergy Unknown NOT Verified 10/08/22 03:52 APPLICABLE Review of Systems Review of Systems Pertinent positives and negatives as stated in HPI 10 point review of systems is otherwise negative. PMFSH Past Medical History Source: nursing notes reviewed Medical History Anxiety delivery delivered Cholecystectomy planned Heart palpitations Lyme disease Social History Social History Alcohol intake: never Patient Tobacco Use Status: Current everyday Tobacco user Smoked in Last 30 Days: Yes Use of substances other than those prescribed or required for medical reasons: No Advance Directives: No Patient : No Physical Exam ED Vital Signs: Vital Signs - 24 hr 10/08/22 03:49 10/08/22 04:17 10/08/22 05:23 Temperature 98.4 F 98.2 F 98.0 F Pulse Rate 97 80 76 Respiratory Rate 20 20 17 Blood Pressure 116/73 105/64 103/66 Pulse Oximetry 99 99 96 Oxygen Delivery Method Room Air Room Air Room Air BMI result Body Mass Index 27.4 VITAL SIGNS: Reviewed. GENERAL: Well developed, well nourished, in no acute distress. HEAD: Normocephalic/atraumatic EYES: PERRLA, EOMI EARS: Ext canals without abnormality OROPHARYNX: no oral lesions noted, posterior pharynx clear LUNGS: Normal breath sounds. No adventitious sounds or accessory muscle use. SpO2<99> CARDIOVASCULAR: Regular rate and rhythm without noted murmurs ABDOMEN: Soft, non-tender, non-distended with bowel sounds. MUSCULOSKELETAL: No tenderness, deformities, or effusions noted on gross inspection. EXTREMITIES: No cyanosis, clubbing or edema. SKIN: Inspection of the skin reveals no rashes NEUROLOGIC: Alert and oriented x 4. Strength and sensation to light touch were grossly intact x 4. Course Course Course Narrative: 37-year-old female with history and clinical presentation most consistent with likely gastroenteritis versus possible acid reflux. Urinary is negative. Review of all investigations without acute findings and patient has responded well to antiemetics and is noted to tolerate oral intake. She is otherwise discharged home in stable condition. Medications Administered Discontinued Medications Generic Name Dose Route Start Last Admin Trade Name Freq PRN Reason Stop Dose Admin Ondansetron HCl 4 mg 10/08/22 05:35 10/08/22 05:57 Ondansetron Odt 4 Mg Tab.Rapdis TRANSLINGU 10/08/22 05:36 4 mg ONCE ONE Administration MDM - Abdominal Pain Lab Data Result diagrams: 10/08/22 03:55 10/08/22 03:55 Labs: Lab Results 10/08/22 10/08/22 10/08/22 Range/Units 03:55 03:55 05:20 WBC 8.4 (4.8-10.8) X10*3/uL RBC 4.51 (4.20-5.50) X10*6/uL Hgb 13.8 (12.0-16.0) g/dl Hct 41.3 (37.0-47.0) % MCV 91.6 (80.0-98.0) fL MCH 30.6 (27.0-33.0) pg MCHC 33.4 (31.0-35.0) g/dl RDW 12.8 (11.0-16.0) % Plt Count 231 (160-400) X10*3/uL MPV 11.4 (9.4-12.3) fL Immature Gran % (Auto) Cancelled Neut % (Auto) Cancelled Lymph % (Auto) Cancelled [place] % (Auto) Cancelled Eos % (Auto) Cancelled Baso % (Auto) Cancelled Lymph # (Auto) Cancelled [place] # (Auto) Cancelled Eos # (Auto) Cancelled Baso # (Auto) Cancelled Abs Immat Gran (auto) Cancelled Absolute Neuts (auto) Cancelled Absolute Nucleated RBC 0.000 (0.0-0.012) X10*3/uL Nucleated RBC % (auto) 0.0 (0.0-0.2) /100WBC Neutrophils % (Manual) 52 (45-73) % Band Neutrophils % 0 L (3-5) % Lymphocytes % (Manual) 37 (20-40) % Atypical Lymphs % (Man) 4 (0-6) % Monocytes % (Manual) 4 (2-11) % Eosinophils % (Manual) 1 (0-4) % Basophils % (Manual) 2 (0-2) % Abs Neuts (Manual) 4.4 (2.0-8.3) X10*3/uL Lymphocytes # (Manual) 3.1 (1.2-4.9) X10*3/uL Atyp Lymphs # (Manual) 0.3 x10*3/uL Monocytes # (Manual) 0.3 (0.1-1.2) X10*3/uL Eosinophils # (Manual) 0.1 (0.0-0.4) X10*3/uL Basophils # (Manual) 0.2 (0.0-0.2) X10*3/uL Toxic Vacuolation PRESENT Platelet Estimate NORMAL (NORMAL) Plt Morphology Comment NORMAL RBC Morphology NORMAL Sodium 141 (135-145) mmol/L Potassium 4.4 (3.3-5.1) mmol/L Chloride 109 H (96-108) mmol/L Carbon Dioxide 22 (22-29) mmol/L Anion Gap 14 (12-20) BUN 12 (9-16) mg/dL Creatinine 0.82 (0.5-1.4) mg/dL Estim Creat Clear Calc 100.4 Estimated GFR > 60 Random Glucose 95 (60-115) mg/dL Calcium 9.5 (8.4-10.2) mg/dL Total Bilirubin 1.1 H (0.0-1.0) mg/dL AST 11 (5-31) U/L ALT 7 (0-31) U/L Alkaline Phosphatase 54 (39-117) U/L Total Protein 7.2 (6.5-8.0) g/dL Albumin 4.3 (3.5-5.0) g/dL Urine Color Dark Yellow Urine Appearance Cloudy Urine pH 5.5 (5.0-9.0) Ur Specific [place] >= 1.030 H (1.005-1.025) Urine Protein Negative (Neg-Trace) mg/dL Urine Glucose (UA) Negative (Negative) mg/dL Urine Ketones >=160 (Negative) mg/dL Urine Blood Moderate (2+) H (Negative) Urine Nitrite Negative (Negative) Ur Leukocyte Esterase Small (1+) H (Negative) Urine RBC 0-2 (0-2) /HPF Urine WBC 11-20 H (0-5) /HPF Ur Squamous Epith Cells 11-20 (0-2) /HPF Urine Bacteria 2+ (None Seen) Hyaline Casts 0-2 (0-2) /LPF Urine Test (NEGATIVE) 10/08/22 Range/Units 05:20 WBC (4.8-10.8) X10*3/uL RBC (4.20-5.50) X10*6/uL Hgb (12.0-16.0) g/dl Hct (37.0-47.0) % MCV (80.0-98.0) fL MCH (27.0-33.0) pg MCHC (31.0-35.0) g/dl RDW (11.0-16.0) % Plt Count (160-400) X10*3/uL MPV (9.4-12.3) fL Immature Gran % (Auto) Neut % (Auto) Lymph % (Auto) [place] % (Auto) Eos % (Auto) Baso % (Auto) Lymph # (Auto) [place] # (Auto) Eos # (Auto) Baso # (Auto) Abs Immat Gran (auto) Absolute Neuts (auto) Absolute Nucleated RBC (0.0-0.012) X10*3/uL Nucleated RBC % (auto) (0.0-0.2) /100WBC Neutrophils % (Manual) (45-73) % Band Neutrophils % (3-5) % Lymphocytes % (Manual) (20-40) % Atypical Lymphs % (Man) (0-6) % Monocytes % (Manual) (2-11) % Eosinophils % (Manual) (0-4) % Basophils % (Manual) (0-2) % Abs Neuts (Manual) (2.0-8.3) X10*3/uL Lymphocytes # (Manual) (1.2-4.9) X10*3/uL Atyp Lymphs # (Manual) x10*3/uL Monocytes # (Manual) (0.1-1.2) X10*3/uL Eosinophils # (Manual) (0.0-0.4) X10*3/uL Basophils # (Manual) (0.0-0.2) X10*3/uL Toxic Vacuolation Platelet Estimate (NORMAL) Plt Morphology Comment RBC Morphology Sodium (135-145) mmol/L Potassium (3.3-5.1) mmol/L Chloride (96-108) mmol/L Carbon Dioxide (22-29) mmol/L Anion Gap (12-20) BUN (9-16) mg/dL Creatinine (0.5-1.4) mg/dL Estim Creat Clear Calc Estimated GFR Random Glucose (60-115) mg/dL Calcium (8.4-10.2) mg/dL Total Bilirubin (0.0-1.0) mg/dL AST (5-31) U/L ALT (0-31) U/L Alkaline Phosphatase (39-117) U/L Total Protein (6.5-8.0) g/dL Albumin (3.5-5.0) g/dL Urine Color Urine Appearance Urine pH (5.0-9.0) Ur Specific [place] (1.005-1.025) Urine Protein (Neg-Trace) mg/dL Urine Glucose (UA) (Negative) mg/dL Urine Ketones (Negative) mg/dL Urine Blood (Negative) Urine Nitrite (Negative) Ur Leukocyte Esterase (Negative) Urine RBC (0-2) /HPF Urine WBC (0-5) /HPF Ur Squamous Epith Cells (0-2) /HPF Urine Bacteria (None Seen) Hyaline Casts (0-2) /LPF Urine Test NEGATIVE (NEGATIVE) Discharge Plan Discharge Clinical Impression: Anxiety, Nausea Patient Disposition: Home, Self-Care Instructions: Acute Nausea and Vomiting (ED), Anxiety (ED) Additional Instructions: 1. Continue to rehydrate, a prescription for antinausea medication has been sent to the pharmacy. 2. Please follow-up with your primary care provider for re-evaluation further outpatient management. Return to the ER for worsening symptoms. Prescriptions: New ondansetron 4 mg tablet,disintegrating 4 mg PO Q8H PRN (Reason: nausea and vomiting) Qty: 10 0RF No Action lorazepam [Ativan] 0.5 mg tablet 0.5 mg PO TID PRN (Reason: anxiety) Qty: 10 0RF Rx Instructions: patient may ask for partial fill nitrofurantoin monohyd/m-cryst [Macrobid] 100 mg capsule 100 mg PO Q12H 7 Days Qty: 14 0RF Rx Instructions: must administer with a meal/food lorazepam [Ativan] 1 mg tablet 1 mg PO Q8H PRN (Reason: anxiety) Qty: 14 0RF doxycycline monohydrate 100 mg capsule 100 mg PO BID 21 Days Qty: 42 0RF Rx Instructions: Positive lyme lorazepam [Ativan] 1 mg tablet 1 mg PO BID PRN (Reason: anxiety) Qty: 10 0RF lorazepam [Ativan] 1 mg tablet 1 mg PO BID PRN (Reason: anxiety) Qty: 10 0RF ondansetron 4 mg tablet,disintegrating 4 mg PO Q6H PRN (Reason: nausea and vomiting) Qty: 14 0RF amoxicillin-pot clavulanate 875-125 mg tablet 1 tab PO Q12H 10 Days Qty: 20 0RF oxycodone 5 mg capsule 5 mg PO Q8H PRN (Reason: pain) 3 Days Qty: 9 0RF Rx Instructions: Partial Fill upon patient request. promethazine 25 mg tablet 25 mg PO Q6H PRN (Reason: nausea and vomiting) Qty: 20 0RF Referrals: Denae Corbin MD [Emergency Provider] -
[2022-10-08 05:33] LABS: UPreg QC Valid YES; Urine Pregnancy NEGATIVE (NEGATIVE)
[2022-10-08 05:39] LABS: Bacteria Urine 2+ (None Seen); Hyaline Casts Urine 0-2 /LPF (0-2); RBC Urine 0-2 /HPF (0-2); UACC Culture Trigger YES
[2022-10-08] MEDS: Ondansetron ODT 4 MG TAB.RAPDIS TRANSLINGU (05:57)
== END 2022-10-08 08:01 | disposition home or self-care (01) ==
PROVIDERS: Emergency Provider Student in an Organized Health Care Education/Training Program; PCP Nurse Practitioner Family
DX: F41.1 Generalized anxiety disorder (principal); R10.9 Unspecified abdominal pain; F43.0 Acute stress reaction; Z79.899 Other long term (current) drug therapy
CPT/HCPCS: 36415; 80053; 81001; 81025; 85007; 85025; 85027; 87086; 99283; 99284

== ENCOUNTER 2022-10-22 15:14 | Emergency (ER) | payer OTHER, SELFPAY ==
--- NOTE | ~2022-10-22 | XR_ITS ---
EXAMINATION: XR CHEST CLINICAL INFORMATION: Palpitations. COMPARISON: 01/17/2022 chest radiographs. TECHNIQUE: Frontal view of the chest was obtained. FINDINGS: No significant abnormality is noted involving the heart, lungs, mediastinum, bony thorax or soft tissues. XR/XR chest 1V IMPRESSION: No acute cardiopulmonary process.
[2022-10-22 15:37] VITALS: BP 118/78; PULSE 85; RESP 16; TEMP 37; O2SAT 100; BMI 26.6
--- NOTE | 2022-10-22 15:40 | ECG_ITS ---
Test Reason : rapid heart beat Blood Pressure : / mmHG Vent. Rate : 082 BPM Atrial Rate : 082 BPM P-R Int : 130 ms QRS Dur : 082 ms QT Int : 350 ms P-R-T Axes : 059 047 037 degrees QTc Int : 408 ms Sinus rhythm with occasional Premature ventricular complexes Otherwise normal ECG When compared with ECG of 25-JUL-2022 16:29, Premature ventricular complexes are now Present Referred By: Julio Araiza Electronically Signed By:Kuldeep Cheung
--- NOTE | 2022-10-22 15:47 | ED.GENADULT ---
HPI - General Adult General Chief complaint: Arrhythmia/Palpitations <LIZ Santoro - Last Filed: 10/25/22 09:52> Stated complaint: heart palpatations <LIZ Santoro - Last Filed: 10/25/22 09:52> Time Seen by Provider: 10/22/22 21:20 <LIZ Santoro - Last Filed: 10/25/22 09:52> Source: patient <Duc Jeronimo MD - Last Filed: 10/22/22 21:41> Mode of arrival: ambulatory <Duc Jeronimo MD - Last Filed: 10/22/22 21:41> Limitations: no limitations <Duc Jeronimo MD - Last Filed: 10/22/22 21:41> History of Present Illness HPI narrative: Patient with history of anxiety and palpitation with workup negative in the past on Ativan, buspirone comes in for palpitation off and on with increased anxiety heart rate increases patient's standing to 120s sometime patient feel dizzy no chest pain no leg edema no shortness of breath. patient heart rate on arrival was in 80s lab workup was done before my evaluation which showed normal CBC normal BUN/creatinine normal TSH normal troponin and BNP patient was seen by glass cutting machine feeder and started on beta-mario for diagnosis of POTS but patient has not taken it <Duc Jeronimo MD - Last Filed: 10/22/22 21:41> Related Data Home medications: Previous Rx's Medication Instructions Recorded lorazepam 0.5 mg tablet (Ativan) 0.5 mg PO TID PRN anxiety #10 tabs 03/19/21 nitrofurantoin 100 mg PO Q12H 7 days #14 caps 01/15/22 monohydrate/macrocrystals 100 mg capsule (Macrobid) lorazepam 1 mg tablet (Ativan) 1 mg PO Q8H PRN anxiety #14 tabs 04/06/22 doxycycline monohydrate 100 mg 100 mg PO BID 21 days #42 caps 04/12/22 capsule amoxicillin 875 mg-potassium 1 tab PO Q12H 10 days #20 tabs 05/31/22 clavulanate 125 mg tablet oxycodone 5 mg capsule 5 mg PO Q8H PRN pain 3 days #9 caps 05/31/22 lorazepam 1 mg tablet (Ativan) 1 mg PO BID PRN anxiety #10 tabs 07/25/22 lorazepam 1 mg tablet (Ativan) 1 mg PO BID PRN anxiety #10 tabs 07/25/22 promethazine 25 mg tablet 25 mg PO Q6H PRN nausea and 07/25/22 vomiting #20 tabs ondansetron 4 mg disintegrating 4 mg PO Q6H PRN nausea and 08/01/22 tablet vomiting #14 tabs ondansetron 4 mg disintegrating 4 mg PO Q8H PRN nausea and 10/08/22 tablet vomiting #10 tabs metoprolol tartrate 25 mg tablet 12.5 mg PO BID #30 tabs 10/22/22 <LIZ Santoro - Last Filed: 10/25/22 09:52> Allergies/adverse reactions: Allergies Allergy/AdvReac Type Severity Reaction Status Date / Time No Known Allergies Allergy Unknown NOT Verified 10/08/22 03:52 APPLICABLE <LIZ Santoro - Last Filed: 10/25/22 09:52> Review of Systems Review of Systems: Yes all other systems are reviewed and are negative <Duc Jeronimo MD - Last Filed: 10/22/22 21:41> [facility] Past Medical History Medical History: Medical History Anxiety delivery delivered Cholecystectomy planned Heart palpitations Lyme disease <LIZ Santoro - Last Filed: 10/25/22 09:52> Social History Social History: Social History Alcohol intake: never Patient Tobacco Use Status: Current everyday Tobacco user Smoked in Last 30 Days: Yes Use of substances other than those prescribed or required for medical reasons: No Advance Directives: No Advance Directives Information Provided: No Patient : No <LIZ Santoro - Last Filed: 10/25/22 09:52> Physical Exam ED Vital Signs: Vital Signs - 24 hr 10/22/22 15:37 10/22/22 19:43 10/22/22 20:00 Temperature 98.6 F 98.0 F 97.6 F Pulse Rate 85 83 83 Respiratory Rate 16 18 16 Blood Pressure 118/78 115/74 112/67 Pulse Oximetry 100 99 98 Oxygen Delivery Method Room Air Room Air Room Air BMI result Body Mass Index 26.6 <LIZ Santoro - Last Filed: 10/25/22 09:52> Vital Signs - 24 hr 10/22/22 15:37 10/22/22 19:43 10/22/22 20:00 Temperature 98.6 F 98.0 F 97.6 F Pulse Rate 85 83 83 Respiratory Rate 16 18 16 Blood Pressure 118/78 115/74 112/67 Pulse Oximetry 100 99 98 Oxygen Delivery Method Room Air Room Air Room Air BMI result Body Mass Index 26.6 <Duc Jeronimo MD - Last Filed: 10/22/22 21:41> Appearance: Alert. Oriented X3. No acute distress. Eyes: PERRLA, No Nystagmus ENT: Pharynx normal. Oral Mucosa moist Neck: Normal inspection. Neck supple. CVS: Sinus tachycardia no murmur or gallop Pulses normal. Respiratory: No respiratory distress. Equal air entry bilateral, no wheezing/rales/rhonchi Abdomen: Soft and nontender. Bowel sounds are present, no mass palpable, no CVA tenderness Skin: Skin warm and dry. Normal skin color. Normal skin turgor. Extremities: No lower extremity edema. No calf tenderness Neuro: Oriented X 3. No motor deficit. <Duc Jeronimo MD - Last Filed: 10/22/22 21:41> Course Course Course Narrative: AQUILINO: Patient presents to the ED for palpitations and diaphoretic earlier this afternoong. patient presently asymptomatic. patient states this has happenned before. patient is well-apperaing. EKG, labs, troponin, and TSH ordered. Chest xray ordere <LIZ Santoro - Last Filed: 10/25/22 09:52> Medications Administered Discontinued Medications Generic Name Dose Route Start Last Admin Trade Name Freq PRN Reason Stop Dose Admin Metoprolol Tartrate 12.5 mg 10/22/22 21:32 10/22/22 22:20 Metoprolol Tartrate 12.5 Mg Halftab PO 10/22/22 21:33 12.5 mg ONCE ONE Administration Protocol <LIZ Santoro - Last Filed: 10/25/22 09:52> Medications Administered Discontinued Medications Generic Name Dose Route Start Last Admin Trade Name Freq PRN Reason Stop Dose Admin Metoprolol Tartrate 12.5 mg 10/22/22 21:32 10/22/22 22:20 Metoprolol Tartrate 12.5 Mg Halftab PO 10/22/22 21:33 12.5 mg ONCE ONE Administration Protocol <Duc Jeronimo MD - Last Filed: 10/22/22 21:41> Medical Decision Making MDM Narrative Medical decision making narrative: Patient clinically with POTS syndrome does have anxiety but taking medications patient when stood up heart rate increased by 30% was given beta-mario if by glass cutting machine feeder has not taken it will give 1 dose of Lopressor 12.5 and advised to continue her medication as prescribed and drink plenty of fluids and have extra salt <Duc Jeronimo MD - Last Filed: 10/22/22 21:41> Lab Data Lab results reviewed: Yes I reviewed the patient's lab results. <Duc Jeronimo MD - Last Filed: 10/22/22 21:41> Result diagrams: : 10/22/22 15:52 10/22/22 15:52 <LIZ Santoro - Last Filed: 10/25/22 09:52> Labs: Lab Results 10/22/22 10/22/22 10/22/22 Range/Units 15:52 15:52 15:52 WBC 10.5 (4.8-10.8) X10*3/uL RBC 4.24 (4.20-5.50) X10*6/uL Hgb 12.9 (12.0-16.0) g/dl Hct 39.4 (37.0-47.0) % MCV 92.9 (80.0-98.0) fL MCH 30.4 (27.0-33.0) pg MCHC 32.7 (31.0-35.0) g/dl RDW 13.2 (11.0-16.0) % Plt Count 194 (160-400) X10*3/uL MPV 11.7 (9.4-12.3) fL Immature Gran % (Auto) 0.2 (0.0-0.4) % Neut % (Auto) 63.4 (45-73) % Lymph % (Auto) 27.5 (20-40) % [place] % (Auto) 6.6 (2-11) % Eos % (Auto) 1.7 (0-4) % Baso % (Auto) 0.6 (0-2) % Lymph # (Auto) 2.9 (1.2-4.9) X10*3/uL [place] # (Auto) 0.7 (0.1-1.2) X10*3/uL Eos # (Auto) 0.2 (0.0-0.4) X10*3/uL Baso # (Auto) 0.1 (0.0-0.2) X10*3/uL Abs Immat Gran (auto) 0.02 (0.00-0.03) X10*3/uL Absolute Neuts (auto) 6.6 (2.0-8.3) x10*3/uL Absolute Nucleated RBC 0.000 (0.0-0.012) X10*3/uL Nucleated RBC % (auto) 0.0 (0.0-0.2) /100WBC PT 12.0 (10.0-13.1) SEC INR 1.0 (0.9-1.1) APTT 32.5 (26.0-36.4) SEC D-Dimer High Sensitivty < 150 NG/ML Sodium 136 (135-145) mmol/L Potassium 4.5 (3.3-5.1) mmol/L Chloride 102 (96-108) mmol/L Carbon Dioxide 27 (22-29) mmol/L Anion Gap 12 (12-20) BUN 14 (9-16) mg/dL Creatinine 0.77 (0.5-1.4) mg/dL Estim Creat Clear Calc 105.4 Estimated GFR > 60 Random Glucose 94 (60-115) mg/dL Calcium 9.5 (8.4-10.2) mg/dL Total Bilirubin 0.7 (0.0-1.0) mg/dL AST 12 (5-31) U/L ALT 8 (0-31) U/L Alkaline Phosphatase 56 (39-117) U/L Troponin I High Sens (<3.5-17.0) ng/L B-Natriuretic Peptide (<100) pg/mL Total Protein 6.9 (6.5-8.0) g/dL Albumin 4.3 (3.5-5.0) g/dL TSH 1.99 (0.32-4.0) uIU/mL 10/22/22 10/22/22 Range/Units 15:52 15:52 WBC (4.8-10.8) X10*3/uL RBC (4.20-5.50) X10*6/uL Hgb (12.0-16.0) g/dl Hct (37.0-47.0) % MCV (80.0-98.0) fL MCH (27.0-33.0) pg MCHC (31.0-35.0) g/dl RDW (11.0-16.0) % Plt Count (160-400) X10*3/uL MPV (9.4-12.3) fL Immature Gran % (Auto) (0.0-0.4) % Neut % (Auto) (45-73) % Lymph % (Auto) (20-40) % [place] % (Auto) (2-11) % Eos % (Auto) (0-4) % Baso % (Auto) (0-2) % Lymph # (Auto) (1.2-4.9) X10*3/uL [place] # (Auto) (0.1-1.2) X10*3/uL Eos # (Auto) (0.0-0.4) X10*3/uL Baso # (Auto) (0.0-0.2) X10*3/uL Abs Immat Gran (auto) (0.00-0.03) X10*3/uL Absolute Neuts (auto) (2.0-8.3) x10*3/uL Absolute Nucleated RBC (0.0-0.012) X10*3/uL Nucleated RBC % (auto) (0.0-0.2) /100WBC PT (10.0-13.1) SEC INR (0.9-1.1) APTT (26.0-36.4) SEC D-Dimer High Sensitivty NG/ML Sodium (135-145) mmol/L Potassium (3.3-5.1) mmol/L Chloride (96-108) mmol/L Carbon Dioxide (22-29) mmol/L Anion Gap (12-20) BUN (9-16) mg/dL Creatinine (0.5-1.4) mg/dL Estim Creat Clear Calc Estimated GFR Random Glucose (60-115) mg/dL Calcium (8.4-10.2) mg/dL Total Bilirubin (0.0-1.0) mg/dL AST (5-31) U/L ALT (0-31) U/L Alkaline Phosphatase (39-117) U/L Troponin I High Sens < 3.5 (<3.5-17.0) ng/L B-Natriuretic Peptide < 10 (<100) pg/mL Total Protein (6.5-8.0) g/dL Albumin (3.5-5.0) g/dL TSH (0.32-4.0) uIU/mL <LIZ Santoro - Last Filed: 10/25/22 09:52> Lab Results 10/22/22 10/22/22 10/22/22 Range/Units 15:52 15:52 15:52 WBC 10.5 (4.8-10.8) X10*3/uL RBC 4.24 (4.20-5.50) X10*6/uL Hgb 12.9 (12.0-16.0) g/dl Hct 39.4 (37.0-47.0) % MCV 92.9 (80.0-98.0) fL MCH 30.4 (27.0-33.0) pg MCHC 32.7 (31.0-35.0) g/dl RDW 13.2 (11.0-16.0) % Plt Count 194 (160-400) X10*3/uL MPV 11.7 (9.4-12.3) fL Immature Gran % (Auto) 0.2 (0.0-0.4) % Neut % (Auto) 63.4 (45-73) % Lymph % (Auto) 27.5 (20-40) % [place] % (Auto) 6.6 (2-11) % Eos % (Auto) 1.7 (0-4) % Baso % (Auto) 0.6 (0-2) % Lymph # (Auto) 2.9 (1.2-4.9) X10*3/uL [place] # (Auto) 0.7 (0.1-1.2) X10*3/uL Eos # (Auto) 0.2 (0.0-0.4) X10*3/uL Baso # (Auto) 0.1 (0.0-0.2) X10*3/uL Abs Immat Gran (auto) 0.02 (0.00-0.03) X10*3/uL Absolute Neuts (auto) 6.6 (2.0-8.3) x10*3/uL Absolute Nucleated RBC 0.000 (0.0-0.012) X10*3/uL Nucleated RBC % (auto) 0.0 (0.0-0.2) /100WBC PT 12.0 (10.0-13.1) SEC INR 1.0 (0.9-1.1) APTT 32.5 (26.0-36.4) SEC D-Dimer High Sensitivty < 150 NG/ML Sodium 136 (135-145) mmol/L Potassium 4.5 (3.3-5.1) mmol/L Chloride 102 (96-108) mmol/L Carbon Dioxide 27 (22-29) mmol/L Anion Gap 12 (12-20) BUN 14 (9-16) mg/dL Creatinine 0.77 (0.5-1.4) mg/dL Estim Creat Clear Calc 105.4 Estimated GFR > 60 Random Glucose 94 (60-115) mg/dL Calcium 9.5 (8.4-10.2) mg/dL Total Bilirubin 0.7 (0.0-1.0) mg/dL AST 12 (5-31) U/L ALT 8 (0-31) U/L Alkaline Phosphatase 56 (39-117) U/L Troponin I High Sens (<3.5-17.0) ng/L B-Natriuretic Peptide (<100) pg/mL Total Protein 6.9 (6.5-8.0) g/dL Albumin 4.3 (3.5-5.0) g/dL TSH 1.99 (0.32-4.0) uIU/mL 10/22/22 10/22/22 Range/Units 15:52 15:52 WBC (4.8-10.8) X10*3/uL RBC (4.20-5.50) X10*6/uL Hgb (12.0-16.0) g/dl Hct (37.0-47.0) % MCV (80.0-98.0) fL MCH (27.0-33.0) pg MCHC (31.0-35.0) g/dl RDW (11.0-16.0) % Plt Count (160-400) X10*3/uL MPV (9.4-12.3) fL Immature Gran % (Auto) (0.0-0.4) % Neut % (Auto) (45-73) % Lymph % (Auto) (20-40) % [place] % (Auto) (2-11) % Eos % (Auto) (0-4) % Baso % (Auto) (0-2) % Lymph # (Auto) (1.2-4.9) X10*3/uL [place] # (Auto) (0.1-1.2) X10*3/uL Eos # (Auto) (0.0-0.4) X10*3/uL Baso # (Auto) (0.0-0.2) X10*3/uL Abs Immat Gran (auto) (0.00-0.03) X10*3/uL Absolute Neuts (auto) (2.0-8.3) x10*3/uL Absolute Nucleated RBC (0.0-0.012) X10*3/uL Nucleated RBC % (auto) (0.0-0.2) /100WBC PT (10.0-13.1) SEC INR (0.9-1.1) APTT (26.0-36.4) SEC D-Dimer High Sensitivty NG/ML Sodium (135-145) mmol/L Potassium (3.3-5.1) mmol/L Chloride (96-108) mmol/L Carbon Dioxide (22-29) mmol/L Anion Gap (12-20) BUN (9-16) mg/dL Creatinine (0.5-1.4) mg/dL Estim Creat Clear Calc Estimated GFR Random Glucose (60-115) mg/dL Calcium (8.4-10.2) mg/dL Total Bilirubin (0.0-1.0) mg/dL AST (5-31) U/L ALT (0-31) U/L Alkaline Phosphatase (39-117) U/L Troponin I High Sens < 3.5 (<3.5-17.0) ng/L B-Natriuretic Peptide < 10 (<100) pg/mL Total Protein (6.5-8.0) g/dL Albumin (3.5-5.0) g/dL TSH (0.32-4.0) uIU/mL <Duc Jeronimo MD - Last Filed: 10/22/22 21:41> ECG Data Attestation: I personally reviewed and interpreted this ECG as follows: <Duc Jeronimo MD - Last Filed: 10/22/22 21:41> Interpretation: Normal sinus rhythm with occasional PVCs heart rate 82 beats per minute normal interval normal axis no acute ST-T no acute ischemia <Duc Jeronimo MD - Last Filed: 10/22/22 21:41> Discharge Plan Discharge Clinical Impression: POTS (postural orthostatic tachycardia syndrome), Anxiety <LIZ Santoro - Last Filed: 10/25/22 09:52> Patient Disposition: Home, Self-Care <LIZ Santoro - Last Filed: 10/25/22 09:52> Instructions: Anxiety (ED), Tachycardia (ED) <LIZ Santoro - Last Filed: 10/25/22 09:52> Additional Instructions: Drink plenty of fluids at least 3 L a day and have salt 8-10 mg daily continue to take your Lopressor 12.5 mg daily as prescribed by your glass cutting machine feeder Take your anxiety medication follow-up with PCP <LIZ Santoro - Last Filed: 10/25/22 09:52> Prescriptions: New metoprolol tartrate 25 mg tablet 12.5 mg PO BID Qty: 30 0RF No Action lorazepam [Ativan] 0.5 mg tablet 0.5 mg PO TID PRN (Reason: anxiety) Qty: 10 0RF Rx Instructions: patient may ask for partial fill nitrofurantoin monohyd/m-cryst [Macrobid] 100 mg capsule 100 mg PO Q12H 7 Days Qty: 14 0RF Rx Instructions: must administer with a meal/food lorazepam [Ativan] 1 mg tablet 1 mg PO Q8H PRN (Reason: anxiety) Qty: 14 0RF doxycycline monohydrate 100 mg capsule 100 mg PO BID 21 Days Qty: 42 0RF Rx Instructions: Positive lyme lorazepam [Ativan] 1 mg tablet 1 mg PO BID PRN (Reason: anxiety) Qty: 10 0RF lorazepam [Ativan] 1 mg tablet 1 mg PO BID PRN (Reason: anxiety) Qty: 10 0RF ondansetron 4 mg tablet,disintegrating 4 mg PO Q6H PRN (Reason: nausea and vomiting) Qty: 14 0RF amoxicillin-pot clavulanate 875-125 mg tablet 1 tab PO Q12H 10 Days Qty: 20 0RF oxycodone 5 mg capsule 5 mg PO Q8H PRN (Reason: pain) 3 Days Qty: 9 0RF Rx Instructions: Partial Fill upon patient request. promethazine 25 mg tablet 25 mg PO Q6H PRN (Reason: nausea and vomiting) Qty: 20 0RF ondansetron 4 mg tablet,disintegrating 4 mg PO Q8H PRN (Reason: nausea and vomiting) Qty: 10 0RF <LIZ Santoro - Last Filed: 10/25/22 09:52> Stand Alone Forms: Work/School Release <LIZ Santoro - Last Filed: 10/25/22 09:52> Interventions: ED Discharge Assessment Last Done: 10/22/22 22:23 <LIZ Santoro - Last Filed: 10/25/22 09:52> Discharge Date/Time: 10/22/22 22:23 <LIZ Santoro - Last Filed: 10/25/22 09:52>
[2022-10-22 15:59] LABS: MANUAL DIFF FLAG NO
[2022-10-22 16:00] LABS: Basophils Absolute Auto 0.1 X10*3/uL (0.0-0.2); Basophils Percent Auto 0.6 % (0-2); Eosinophils Absolute Auto 0.2 X10*3/uL (0.0-0.4); Eosinophils Percent Auto 1.7 % (0-4); Hematocrit 39.4 % (37.0-47.0); Hemoglobin 12.9 g/dl (12.0-16.0); Imm Gran Abs Auto 0.02 X10*3/uL (0.00-0.03); Imm Gran Pct Auto 0.2 % (0.0-0.4); Lymphocytes Absolute Auto 2.9 X10*3/uL (1.2-4.9); Lymphocytes Percent Auto 27.5 % (20-40); Mean Corpuscular HGB Conc 32.7 g/dl (31.0-35.0); Mean Corpuscular Hemoglobin 30.4 pg (27.0-33.0); Mean Corpuscular Volume 92.9 fL (80.0-98.0); Mean Platelet Volume 11.7 fL (9.4-12.3); Monocytes Absolute Auto 0.7 X10*3/uL (0.1-1.2); Monocytes Percent Auto 6.6 % (2-11); Neutrophils Absolute Auto 6.6 x10*3/uL (2.0-8.3); Neutrophils Percent Auto 63.4 % (45-73); Platelet Count 194 X10*3/uL (160-400); Red Blood Count 4.24 X10*6/uL (4.20-5.50); Red Cell Distribution Width 13.2 % (11.0-16.0); White Blood Count 10.5 X10*3/uL (4.8-10.8)
[2022-10-22 16:10] LABS: Partial Thromboplastin Time 32.5 SEC (26.0-36.4)
[2022-10-22 16:11] LABS: D Dimer High Sensitivity < 150 NG/ML
[2022-10-22 16:33] LABS: Troponin-I High Sensitivity < 3.5 ng/L (<3.5-17.0)
[2022-10-22 16:44] LABS: Alanine Aminotransferase 8 U/L (0-31); Albumin Level 4.3 g/dL (3.5-5.0); Alkaline Phosphatase 56 U/L (39-117); Anion Gap 12 (12-20); Aspartate Amino Transferase 12 U/L (5-31); Bilirubin Total 0.7 mg/dL (0.0-1.0); Blood Urea Nitrogen 14 mg/dL (9-16); Calcium 9.5 mg/dL (8.4-10.2); Carbon Dioxide 27 mmol/L (22-29); Chloride 102 mmol/L (96-108); Creatinine Clr Calc Pharmacy 105.4; Estimated Glomerular Filt Rate > 60; Glucose Random 94 mg/dL (60-115); Potassium 4.5 mmol/L (3.3-5.1); Sodium 136 mmol/L (135-145); TSH reflex Free T4 1.99 uIU/mL (0.32-4.0); Total Protein 6.9 g/dL (6.5-8.0)
[2022-10-22 19:31] LABS: B Type Natriuretic Peptide < 10 pg/mL (<100)
[2022-10-22 19:43] VITALS: BP 115/74; PULSE 83; RESP 18; TEMP 36.7; O2SAT 99
[2022-10-22 20:00] VITALS: BP 112/67; PULSE 83; RESP 16; TEMP 36.4; O2SAT 98
--- OUTSIDE RECORDS SUMMARY | 2022-10-22 20:07 | XMS_ITS | Continuity of Care Document ---
:1985 Author Organization [facility] Address [address] [place] [address]- Care Team Providers Name Role Phone Marco MILLS, Simi Primary Care Physician Encounter [facility] Date(s): 09/17/22 - 10/17/22 [facility] [address] [place] [address]- [place] Allergies, Adverse Reactions, Alerts No Known [...] 4 Refills, Maintenance, 09/22/22 11:02:00 EDT, [facility]/pharmacy #[id number], Partial fill upon patient request [...] Care Team PersonnelName: Simi Lara NP Position: [facility] PCO Associate Professional Member Role: PCP Address: Address: [address] [place] [id number]- Care Team Related PersonsName: LISA RIVAS Address: home [address] [address] Name: CHARLENE DAVIS Address: home [address] [place] [address]
--- OUTSIDE RECORDS SUMMARY | 2022-10-22 20:08 | XMS_ITS | Continuity of Care Document ---
:1985 Author Organization [facility] Address [address] [place] [address]- Care Team Providers Name Role Phone Marco MILLS, Simi Primary Care Physician Encounter [facility] Date(s): 10/13/22 - 10/20/22 [facility] [address] [place] [address]- Attending Physician: Not on Staff, Attending MD Allergies, Adverse Reactions, Alerts No Known [...] oldest [Reference Range]: 1 Height 168 cm (10/13/22 1:33 PM) Social History Social History Type Response Smoking Status 10 or more cigarettes (1/2 p ack or more)/day in last 30 days entered on: 08/28/19 Sex Note Nupur Calderon MA: PERFORM, SIGN, VERIFY Event Display: Patient Education/Instruction Authored Date: [id number] [facility] *BMP Quab Adlt Med Bltn Clinical Summary Name ANDREW DAVIS Age 37 Years 1985 PCP Marco MILLS, Simi PCP Visit Date 10/13/2022 13:33:00 Additional Instructions: Scheduled Appointments?? Future Appointments ?*[facility]ult ?[address]??[place],??[place],??[address] ?Phone:??--?Fax:??-- ?Appt. Date:??11/19/2022?1:30 PM ?Scheduled Provider:??Alyssia Alvarez DO Follow-Up Instructions ?? Diagnosis Medications: Please continue your medications until treatment is completed or stopped by your provider. Discuss any questions related to medications with your provider. Medications to Continue with No Changes These medications were not printed or sent to your pharmacy BusPIRone (busPIRone 15 mg oral tablet) 1 tab(s) Oral twice a day. Refills: 4. Next Dose: Lorazepam (LORazepam 0.5 mg oral tablet) TAKE 1-2 TABLETS BY MOUTH AT BEDTIME FOR ANXIETY FOR 30 DAYS. Refills: 0. Next Dose: Allergy Info:?? NKA Medications Given This Visit Future Orders ?No future orders Vital Signs Height 168 cm Weight BMI Blood Pressure / Temperature Pulse Rate Respiratory Rate 02 Sat Mode of Delivery / You can now view a summary of your hospital visit from the comfort of your home through a free online portal called [facility]. [facility] is a website that allows you to securely view yourmedical information including discharge summary, medications and follow-up visits. ??You can also send a secure electronic message to your doctor???s office to request appointments, renew medications or just ask a question. You can enroll at [email or web address] or register during your next office visit. [...] primary care provider, you may find a [facility] provider by calling [facility] at [phone]. For information about the plan of care [...] Care Team PersonnelName: Simi Lara NP Position: [facility] PCO Associate Professional Member Role: PCP Address: Address: [address] [facility] [place] [address]- Care Team Related PersonsName: LISA CALDERON Address: home [address] [address] Name: CHARLENE DAVIS Address: home [address] [place] [address]
--- OUTSIDE RECORDS SUMMARY | 2022-10-22 20:08 | XMS_ITS | Continuity of Care Document ---
:1985 Author Organization [facility] Address [address] [place] [address]- Care Team Providers Name Role Phone Marco MILLS, Simi Primary Care Physician Encounter [facility] Date(s): 09/20/22 - 10/20/22 [facility] [address] [place] [address]- [place] Allergies, Adverse Reactions, Alerts No Known [...] Care Team PersonnelName: Simi Lara NP Position: [facility] PCO Associate Professional Member Role: PCP Address: Address: [address] [place] [address]- Care Team Related PersonsName: LISA RIVAS Address: home [address] [address] Name: CHARLENE DAVIS Address: [address] [place] [address]
[2022-10-22 22:00] VITALS: BP 120/65; PULSE 98; RESP 16; TEMP 36.4; O2SAT 98
[2022-10-22] MEDS: Metoprolol Tartrate 12.5 MG HALFTAB PO (22:20)
--- NOTE | 2022-10-22 22:23 | PC.NURSE ---
Discharge instructions reviewed with pt. Pt verbalizes understanding.
== END 2022-10-22 22:23 | disposition home or self-care (01) ==
PROVIDERS: Physician Assistant; Emergency Provider Internal Medicine; PCP Nurse Practitioner Family
DX: G90.A Postural orthostatic tachycardia syndrome [POTS] (principal); F41.9 Anxiety disorder, unspecified; F17.200 Nicotine dependence, unspecified, uncomplicated; Z79.899 Other long term (current) drug therapy
CPT/HCPCS: 36415; 71045; 80053; 83880; 84443; 84484; 85025; 85379; 85610; 85730; 93005; 99283; 99285

== ENCOUNTER 2022-12-04 13:28 | Emergency (ER) | payer OTHER, SELFPAY ==
--- NOTE | ~2022-12-04 | CT_ITS ---
EXAMINATION: CT HEAD WITHOUT CONTRAST CLINICAL INFORMATION: Left facial numbness COMPARISON: Head CT 02/22/2022 TECHNIQUE: Imaging was performed from the skull base to vertex without intravenous administration of contrast. This CT examination was performed using dose optimization techniques as appropriate, variously including the following: *Automated exposure control *Adjustment of mA and/or kV according to patient size (this includes techniques or standardized protocols for targeted exams where dose is matched to indication/reason for exam; i.e. extremities or head) *Use of iterative reconstruction technique Total exam dose length product: 559 mGy-cm FINDINGS: No intra or extra-axial fluid collection, hemorrhage, or mass. No ventriculomegaly. No midline shift or herniation. Basal cisterns are patent. Garcia-white matter differentiation is maintained. No territorial encephalomalacia. No significant volume loss. There is no abnormal attenuation within the brain parenchyma. No calvarial fracture or soft tissue abnormality. The mastoid air cells and visualized portions of the paranasal sinuses are well aerated. CT/CT head/brain wo IV con IMPRESSION: 1. No acute intracranial pathology.
[2022-12-04 13:40] VITALS: BP 138/78; PULSE 92; RESP 16; TEMP 36.8; O2SAT 100; BMI 20.5
--- NOTE | 2022-12-04 13:55 | ED.NEUROSD ---
HPI - Neuro Symptoms/Deficit General Chief Complaint: Neuro Symptoms/Deficit Stated Complaint: L Side Facial Tingling Time Seen by Provider: 12/04/22 13:37 Source: patient Mode of arrival: ambulatory Limitations: no limitations History of Present Illness HPI Narrative: Left-sided facial numbness and left facial twitching. Patient's symptoms started about 10 days ago it is intermittent comes and goes, patient had similar symptoms in the past and was told related to her anxiety. Otherwise no upper extremities weakness or numbness, no slurred speech, no headache. Patient is known to have severe anxiety had multiple ED visits for anxiety-related symptoms. Related Data Previous Rx's Medication Instructions Recorded lorazepam 0.5 mg tablet (Ativan) 0.5 mg PO TID PRN anxiety #10 tabs 03/19/21 nitrofurantoin 100 mg PO Q12H 7 days #14 caps 01/15/22 monohydrate/macrocrystals 100 mg capsule (Macrobid) lorazepam 1 mg tablet (Ativan) 1 mg PO Q8H PRN anxiety #14 tabs 04/06/22 doxycycline monohydrate 100 mg 100 mg PO BID 21 days #42 caps 04/12/22 capsule amoxicillin 875 mg-potassium 1 tab PO Q12H 10 days #20 tabs 05/31/22 clavulanate 125 mg tablet oxycodone 5 mg capsule 5 mg PO Q8H PRN pain 3 days #9 caps 05/31/22 lorazepam 1 mg tablet (Ativan) 1 mg PO BID PRN anxiety #10 tabs 07/25/22 lorazepam 1 mg tablet (Ativan) 1 mg PO BID PRN anxiety #10 tabs 07/25/22 promethazine 25 mg tablet 25 mg PO Q6H PRN nausea and 07/25/22 vomiting #20 tabs ondansetron 4 mg disintegrating 4 mg PO Q6H PRN nausea and 08/01/22 tablet vomiting #14 tabs ondansetron 4 mg disintegrating 4 mg PO Q8H PRN nausea and 10/08/22 tablet vomiting #10 tabs metoprolol tartrate 25 mg tablet 12.5 mg PO BID #30 tabs 10/22/22 Allergies Allergy/AdvReac Type Severity Reaction Status Date / Time No Known Allergies Allergy Unknown NOT Verified 10/08/22 03:52 APPLICABLE Review of Systems Review of Systems: All other systems are reviewed and are negative Constitutional: Reports as per HPI and Reports no additional constitutional complaints Eyes: Reports as per HPI and Reports no additional eye complaints Reports system reviewed and no additional complaints, except as documented Cardiovascular: Reports as per HPI and Reports no additional cardiovascular complaints Respiratory: Reports as per HPI and Reports no additional respiratory complaints Gastrointestinal: Reports as per HPI and Reports no additional gastrointestinal complaints Genitourinary: Reports no additional female genitourinary complaints Musculoskeletal: Reports no additional musculoskeletal complaints Skin/Breast: Reports system reviewed and no additional complaints, except as docu Psychiatric: Reports no additional psychiatric complaints Endocrine: Reports no additional endocrine complaints Hematologic/Lymphatic: Reports no additional hematologic/lymphatic complaints Allergic/Immunologic: Reports no additional allergic/immunologic complaints Reports system reviewed and no additional complaints, except as documented and Reports Abnormal speech present [facility] Past Medical History Medical History Anxiety delivery delivered Cholecystectomy planned Heart palpitations Lyme disease Social History Social History Alcohol intake: never Patient Tobacco Use Status: Current everyday Tobacco user Advance Directives: No Advance Directives Information Provided: No Physical Exam Vital Signs: Vital Signs: Last Vital Signs Temp 98.2 F 12/04/22 13:40 Pulse 92 12/04/22 13:40 Resp 16 12/04/22 13:40 BP 138/78 12/04/22 13:40 Pulse Ox 100 12/04/22 13:40 O2 Del Method 12/04/22 13:40 BMI result Body Mass Index 20.5 Vital signs have been reviewed as appeared to be correct. Blood pressure normal. Heart rate normal. Respiration rate normal. Temperature normal. Oxygen saturation normal. Appearance: Alert. Oriented X3. No acute distress. Head: Normal external exam. Normocephalic. Atraumatic. No Morales signs noted. No raccoon eyes noted Eyes: PERRLA. EOMI. Conjunctiva and sclera normal. Eyelids normal. ENT: TM's Normal. Pharynx normal. Uvula midline. Moist mucous membranes. No trismus noted. No drooling noted. No muffled voice noted. Neck: Normal inspection. Neck supple. FROM. No adenopathy. Thyroid Normal. No meningeal signs. No neck mass noted. CVS: Normal heart rate and rhythm. Heart sound normal. No murmurs noted. Pulses normal throughout. Respiratory: No respiratory distress. Painless inspiration. Breath sounds normal. No wheezes/rales/rhonchi noted. Chest nontender. No accessory muscle usage noted or decreased air movement noted. Abdomen: Soft and nontender. Bowel sounds normal in all 4 quadrants. No distention noted. No organomegaly noted. No visible injury noted. Back: No CVA tenderness. Full range of motion noted. Skin: Skin warm and dry. Normal skin color. Normal skin turgor. No rashes/lesions/lacerations noted. Extremities: No lower extremity edema. Extremities exhibit normal range of motion. Extremities nontender. Neuro: Oriented X 3. Cranial nerve exam: II-XII are grossly intact No motor deficit. No sensory deficit. Reflexes normal. Course Course Course Narrative: 37-year-old female with history of severe anxiety presented with left facial numbness and twitching for the past 10 days, otherwise normal neuro exam, unremarkable head CT. Will reassure patient's symptoms likely due to severe anxiety disorder. Medical Decision Making Differential Diagnosis Differential Diagnoses: The differential diagnosis associated with the presentation includes (Anxiety, Reyes's palsy, stroke) Lab Data MDM Lab Attestation statement: I reviewed the patient's lab results. 12/04/22 14:27 12/04/22 14:27 Labs: Lab Results 12/04/22 12/04/22 Range/Units 14:27 14:27 WBC 9.7 (4.8-10.8) X10*3/uL RBC 4.21 (4.20-5.50) X10*6/uL Hgb 12.9 (12.0-16.0) g/dl Hct 38.7 (37.0-47.0) % MCV 91.9 (80.0-98.0) fL MCH 30.6 (27.0-33.0) pg MCHC 33.3 (31.0-35.0) g/dl RDW 12.9 (11.0-16.0) % Plt Count 201 (160-400) X10*3/uL MPV 11.8 (9.4-12.3) fL Immature Gran % (Auto) 0.2 (0.0-0.4) % Neut % (Auto) 68.6 (45-73) % Lymph % (Auto) 24.4 (20-40) % [place] % (Auto) 5.2 (2-11) % Eos % (Auto) 1.1 (0-4) % Baso % (Auto) 0.5 (0-2) % Lymph # (Auto) 2.4 (1.2-4.9) X10*3/uL [place] # (Auto) 0.5 (0.1-1.2) X10*3/uL Eos # (Auto) 0.1 (0.0-0.4) X10*3/uL Baso # (Auto) 0.1 (0.0-0.2) X10*3/uL Abs Immat Gran (auto) 0.02 (0.00-0.03) X10*3/uL Absolute Neuts (auto) 6.7 (2.0-8.3) x10*3/uL Absolute Nucleated RBC 0.000 (0.0-0.012) X10*3/uL Nucleated RBC % (auto) 0.0 (0.0-0.2) /100WBC Sodium 140 (135-145) mmol/L Potassium 4.7 (3.3-5.1) mmol/L Chloride 110 H (96-108) mmol/L Carbon Dioxide 24 (22-29) mmol/L Anion Gap 11 L (12-20) BUN 7 L (9-16) mg/dL Creatinine 0.71 (0.5-1.4) mg/dL Estim Creat Clear Calc 106.8 Estimated GFR > 60 Random Glucose 91 (60-115) mg/dL Calcium 9.1 (8.4-10.2) mg/dL Independent Interpretation I performed an independent interpretation of an: CT Scan (Head: No acute intracranial pathology.) Radiology Impression Discussion of test interpretation with radiology: I have reviewed the radiologist's reading. NIH Stroke Scale Time: 13:59 Level of Consciousness: Alert Level of Consciousness Questions: Answers both questions correctly Level of Consciousness Commands: Performs both tasks correctly Best Gaze: Normal Visual: No visual loss Facial Palsy: Normal Motor Arm (Right): No drift Motor Arm (Left): No drift Motor Leg (Right): No drift Motor Leg (Left): No drift Limb Ataxia: Absent Sensory: Normal Best Language: No aphasia Dysarthia: Normal Extinction and Inattention: No abnormality Score: 0 Discharge Plan Discharge Clinical Impression: Anxiety Patient Disposition: Home, Self-Care Instructions: Anxiety (ED) Prescriptions: No Action lorazepam [Ativan] 0.5 mg tablet 0.5 mg PO TID PRN (Reason: anxiety) Qty: 10 0RF Rx Instructions: patient may ask for partial fill nitrofurantoin monohyd/m-cryst [Macrobid] 100 mg capsule 100 mg PO Q12H 7 Days Qty: 14 0RF Rx Instructions: must administer with a meal/food lorazepam [Ativan] 1 mg tablet 1 mg PO Q8H PRN (Reason: anxiety) Qty: 14 0RF doxycycline monohydrate 100 mg capsule 100 mg PO BID 21 Days Qty: 42 0RF Rx Instructions: Positive lyme lorazepam [Ativan] 1 mg tablet 1 mg PO BID PRN (Reason: anxiety) Qty: 10 0RF lorazepam [Ativan] 1 mg tablet 1 mg PO BID PRN (Reason: anxiety) Qty: 10 0RF ondansetron 4 mg tablet,disintegrating 4 mg PO Q6H PRN (Reason: nausea and vomiting) Qty: 14 0RF amoxicillin-pot clavulanate 875-125 mg tablet 1 tab PO Q12H 10 Days Qty: 20 0RF oxycodone 5 mg capsule 5 mg PO Q8H PRN (Reason: pain) 3 Days Qty: 9 0RF Rx Instructions: Partial Fill upon patient request. promethazine 25 mg tablet 25 mg PO Q6H PRN (Reason: nausea and vomiting) Qty: 20 0RF ondansetron 4 mg tablet,disintegrating 4 mg PO Q8H PRN (Reason: nausea and vomiting) Qty: 10 0RF metoprolol tartrate 25 mg tablet 12.5 mg PO BID Qty: 30 0RF Referrals: Simi Lara NP [Primary Care Provider] -
[2022-12-04 14:33] LABS: MANUAL DIFF FLAG NO
[2022-12-04 14:35] LABS: Basophils Absolute Auto 0.1 X10*3/uL (0.0-0.2); Basophils Percent Auto 0.5 % (0-2); Eosinophils Absolute Auto 0.1 X10*3/uL (0.0-0.4); Eosinophils Percent Auto 1.1 % (0-4); Hematocrit 38.7 % (37.0-47.0); Hemoglobin 12.9 g/dl (12.0-16.0); Imm Gran Abs Auto 0.02 X10*3/uL (0.00-0.03); Imm Gran Pct Auto 0.2 % (0.0-0.4); Lymphocytes Absolute Auto 2.4 X10*3/uL (1.2-4.9); Lymphocytes Percent Auto 24.4 % (20-40); Mean Corpuscular HGB Conc 33.3 g/dl (31.0-35.0); Mean Corpuscular Hemoglobin 30.6 pg (27.0-33.0); Mean Corpuscular Volume 91.9 fL (80.0-98.0); Mean Platelet Volume 11.8 fL (9.4-12.3); Monocytes Absolute Auto 0.5 X10*3/uL (0.1-1.2); Monocytes Percent Auto 5.2 % (2-11); Neutrophils Absolute Auto 6.7 x10*3/uL (2.0-8.3); Neutrophils Percent Auto 68.6 % (45-73); Platelet Count 201 X10*3/uL (160-400); Red Blood Count 4.21 X10*6/uL (4.20-5.50); Red Cell Distribution Width 12.9 % (11.0-16.0); White Blood Count 9.7 X10*3/uL (4.8-10.8)
[2022-12-04 14:46] LABS: Anion Gap 11 (12-20)
[2022-12-04 14:48] LABS: Carbon Dioxide 24 mmol/L (22-29)
[2022-12-04 14:54] LABS: Blood Urea Nitrogen 7 mg/dL (9-16); Calcium 9.1 mg/dL (8.4-10.2); Chloride 110 mmol/L (96-108); Creatinine Clr Calc Pharmacy 106.8; Estimated Glomerular Filt Rate > 60; Glucose Random 91 mg/dL (60-115); Potassium 4.7 mmol/L (3.3-5.1); Sodium 140 mmol/L (135-145)
== END 2022-12-04 16:57 | disposition home or self-care (01) ==
PROVIDERS: Emergency Provider Emergency Medicine; PCP Nurse Practitioner Family
DX: F41.1 Generalized anxiety disorder (principal); F43.0 Acute stress reaction; R51.9 Headache, unspecified; Z79.899 Other long term (current) drug therapy
CPT/HCPCS: 36415; 70450; 80048; 85025; 99282; 99284

== ENCOUNTER 2023-01-11 11:38 | Emergency (ER) | payer OTHER, SELFPAY ==
[2023-01-11 11:42] VITALS: BP 119/79; PULSE 78; RESP 16; TEMP 36.7; O2SAT 100; BMI 25.0
--- NOTE | 2023-01-11 11:43 | ED.ARRPALP ---
HPI - Arrhythmia/Palpitations General Chief Complaint: General Medical <LIZ Nunes - Last Filed: 01/11/23 11:46> Stated Complaint: Heart palpitations <LIZ Nunes - Last Filed: 01/11/23 11:46> Time Seen by Provider: 01/11/23 13:50 <LIZ Nunes - Last Filed: 01/11/23 11:46> Source: patient <Angelina Doshi MD - Last Filed: 01/11/23 14:42> Mode of arrival: ambulatory <Angelina Doshi MD - Last Filed: 01/11/23 14:42> Limitations: no limitations <Angelina Doshi MD - Last Filed: 01/11/23 14:42> History of Present Illness HPI narrative: Patient comes to the emergency room complaining palpitations which last for a few seconds at a time. Patient states that she has had intermittent palpitations for several days but she has had in the past. Patient states that she does not have any chest pain, shortness of breath or dizziness. Patient is currently taking metoprolol for the symptoms, she has an appointment pending with her primary care physician in 2 days. At this time, patient is asymptomatic. Patient states that 2 years ago she had a Holter monitor for 3 days for similar reasons and the Holter monitor evaluation did not show any abnormality. <Angelina Doshi MD - Last Filed: 01/11/23 14:42> Related Data Home Medications: Previous Rx's Medication Instructions Recorded lorazepam 0.5 mg tablet (Ativan) 0.5 mg PO TID PRN anxiety #10 tabs 03/19/21 nitrofurantoin 100 mg PO Q12H 7 days #14 caps 01/15/22 monohydrate/macrocrystals 100 mg capsule (Macrobid) lorazepam 1 mg tablet (Ativan) 1 mg PO Q8H PRN anxiety #14 tabs 04/06/22 doxycycline monohydrate 100 mg 100 mg PO BID 21 days #42 caps 04/12/22 capsule amoxicillin 875 mg-potassium 1 tab PO Q12H 10 days #20 tabs 05/31/22 clavulanate 125 mg tablet oxycodone 5 mg capsule 5 mg PO Q8H PRN pain 3 days #9 caps 05/31/22 lorazepam 1 mg tablet (Ativan) 1 mg PO BID PRN anxiety #10 tabs 07/25/22 lorazepam 1 mg tablet (Ativan) 1 mg PO BID PRN anxiety #10 tabs 07/25/22 promethazine 25 mg tablet 25 mg PO Q6H PRN nausea and 07/25/22 vomiting #20 tabs ondansetron 4 mg disintegrating 4 mg PO Q6H PRN nausea and 08/01/22 tablet vomiting #14 tabs ondansetron 4 mg disintegrating 4 mg PO Q8H PRN nausea and 10/08/22 tablet vomiting #10 tabs metoprolol tartrate 25 mg tablet 12.5 mg PO BID #30 tabs 10/22/22 <LIZ Nunes - Last Filed: 01/11/23 11:46> Allergies/Adverse Reactions: Allergies Allergy/AdvReac Type Severity Reaction Status Date / Time No Known Allergies Allergy Unknown NOT Verified 10/08/22 03:52 APPLICABLE <LIZ Nunes - Last Filed: 01/11/23 11:46> Review of Systems Review of Systems: Constitutional : No Weight loss, No Fever, No Chills, No Night Sweats, No Fatigue, No Malaise ENT/Mouth : No Hearing loss, No Ear Pain, No Nasal Congestion, No Sinus Pain, No Hoarseness, No sore throat, No Rhinorrhea, No Swallowing Difficulty Eyes: No Eye Pain, No Swelling, No Redness, No Foreign Body, No Discharge, No Vision Changes Cardiovascular : No Chest Pain, No SOB, No Dyspnea on Exertion, No Orthopnea, No Edema, complaining of intermittent Palpitations Respiratory : No Cough, No Sputum, No Wheezing, No Smoke Exposure, No Dyspnea Gastrointestinal : No Nausea, No Vomiting, No Diarrhea, No Constipation, No abdominal Pain, No Hematochezia, No Melena Genitourinary : no irregular bleeding, No Dysuria, No Urinary Frequency, No Hematuria, No Urinary Incontinence, No Urgency, No Flank Pain, No Urinary Flow Changes, No Hesitancy Musculoskeletal : No joint pain, No Myalgias, No Joint Swelling Skin : No Skin Lesions, No rash Neuro : No Weakness, No Numbness, No Paresthesias, No Loss of Consciousness, No Dizziness, No Headache Psych : No Anxiety/Panic, No Depression, No SI/HI/AH/VH, No Social Issues, Heme/Lymph: No Bruising, No Bleeding,No Lymphadenopathy Endocrine : No Polyuria, No Polydipsia, No Temperature Intolerance <Angelina Doshi MD - Last Filed: 01/11/23 14:42> COUNTS INCLUDE 234 BEDS AT THE [facility] Past Medical History Medical History: Medical History Anxiety delivery delivered Cholecystectomy planned Heart palpitations Lyme disease <LIZ Nunes - Last Filed: 01/11/23 11:46> Social History Social History: Social History Alcohol intake: never Patient Tobacco Use Status: Current everyday Tobacco user Advance Directives: No Advance Directives Information Provided: No <LIZ Nunes - Last Filed: 01/11/23 11:46> Physical Exam Vital Signs: Vital Signs: Last Vital Signs Temp 98.3 F 01/11/23 14:00 Pulse 80 01/11/23 14:00 Resp 13 01/11/23 14:00 BP 118/66 01/11/23 14:00 Pulse Ox 100 01/11/23 14:00 O2 Del Method 01/11/23 14:00 BMI result Body Mass Index 25.0 <LIZ Nunes - Last Filed: 01/11/23 11:46> Vital Signs: Last Vital Signs Temp 98.3 F 01/11/23 14:00 Pulse 80 01/11/23 14:00 Resp 13 01/11/23 14:00 BP 118/66 01/11/23 14:00 Pulse Ox 100 01/11/23 14:00 O2 Del Method 01/11/23 14:00 BMI result Body Mass Index 25.0 <Angelina Doshi MD - Last Filed: 01/11/23 14:42> Const: Other: Appearance: Alert. Oriented X3. No acute distress. Well-appearing Eyes: Pupils equal, round and reactive to light. ENT: Pharynx normal. Neck: Normal inspection. Neck supple. No lymph nodes noted. No crepitus CVS: Normal heart rate and rhythm. Pulses normal. Normal S1 and S2 Respiratory: No respiratory distress. Breath sounds normal. No Wheezing. No rales Abdomen: Soft and nontender. No rigidity. No distention. Skin: Skin warm and dry. Normal skin color. Normal skin turgor. Extremities: No lower extremity edema. No Lacerations. No Rash Neuro: Oriented X 3. No motor deficit. No sensory deficit. Moving all extremities. No slurred speech. CN 2 through 12 grossly intact Psych: calm, cooperative, normal affect <Angelina Doshi MD - Last Filed: 01/11/23 14:42> Course Course Course Narrative: RME - 37 yo female presents to the ER for evaluation of heart palpitations for the last 3 days. PCP told her to come to the ER to get checked. Feels like skipping beats. Hx the same and is on metoprolol low dose. No associated chest pain, dizziness, lightheadedness, SOB. Causing increase in anxiety. HR 70s in triage. Will check EKG and labs. <LIZ Nunes - Last Filed: 01/11/23 11:46> Medical Decision Making Medical Decision Making [facility] Narrative: Patient's troponin and EKG within normal limits -my EKG interpretation: Sinus rhythm, heart rate 80, no ST segment depressions or elevations, no T-wave inversions, no PVCs, QTC 394 -I discussed with the patient the above mentioned, patient has an appointment in 2 days with the primary care physician. At this time, we will not increase metoprolol, patient instructed to keep taking the same dose. -I also discussed with the patient that she would benefit from a Holter monitor evaluation. <Angelina Doshi MD - Last Filed: 01/11/23 14:42> Differential Diagnosis Differential Diagnoses: The differential diagnosis associated with the presentation includes (Palpitations, anxiety, hyperthyroidism) <Angelina Doshi MD - Last Filed: 01/11/23 14:42> Lab Data [facility] Lab Attestation statement: I reviewed the patient's lab results. <Angelina Doshi MD - Last Filed: 01/11/23 14:42> Result Diagrams: 01/11/23 11:57 01/11/23 11:57 <LIZ Nunes - Last Filed: 01/11/23 11:46> Labs: Lab Results 01/11/23 01/11/23 01/11/23 Range/Units 11:57 11:57 14:05 WBC 10.9 H (4.8-10.8) X10*3/uL RBC 4.45 (4.20-5.50) X10*6/uL Hgb 13.6 (12.0-16.0) g/dl Hct 41.2 (37.0-47.0) % MCV 92.6 (80.0-98.0) fL MCH 30.6 (27.0-33.0) pg MCHC 33.0 (31.0-35.0) g/dl RDW 13.0 (11.0-16.0) % Plt Count 236 (160-400) X10*3/uL MPV 11.0 (9.4-12.3) fL Immature Gran % (Auto) 0.3 (0.0-0.4) % Neut % (Auto) 68.8 (45-73) % Lymph % (Auto) 23.3 (20-40) % [place] % (Auto) 6.3 (2-11) % Eos % (Auto) 0.8 (0-4) % Baso % (Auto) 0.5 (0-2) % Lymph # (Auto) 2.5 (1.2-4.9) X10*3/uL [place] # (Auto) 0.7 (0.1-1.2) X10*3/uL Eos # (Auto) 0.1 (0.0-0.4) X10*3/uL Baso # (Auto) 0.1 (0.0-0.2) X10*3/uL Abs Immat Gran (auto) 0.03 (0.00-0.03) X10*3/uL Absolute Neuts (auto) 7.5 (2.0-8.3) x10*3/uL Absolute Nucleated RBC 0.000 (0.0-0.012) X10*3/uL Nucleated RBC % (auto) 0.0 (0.0-0.2) /100WBC Sodium 140 (135-145) mmol/L Potassium 4.7 (3.3-5.1) mmol/L Chloride 107 (96-108) mmol/L Carbon Dioxide 24 (22-29) mmol/L Anion Gap 14 (12-20) BUN 13 (9-16) mg/dL Creatinine 0.80 (0.5-1.4) mg/dL Estim Creat Clear Calc 88.3 Estimated GFR > 60 Random Glucose 95 (60-115) mg/dL Calcium 9.3 (8.4-10.2) mg/dL Magnesium 1.7 (1.6-2.6) mg/dL Total Bilirubin 1.6 H (0.0-1.0) mg/dL Direct Bilirubin 0.3 (0.0-0.5) mg/dL AST 15 (5-31) U/L ALT 15 (0-31) U/L Alkaline Phosphatase 52 (39-117) U/L Troponin I High Sens 4.8 (<3.5-17.0) ng/L Total Protein 6.6 (6.5-8.0) g/dL Albumin 4.1 (3.5-5.0) g/dL TSH 1.25 (0.32-4.0) uIU/mL <LIZ Nunes - Last Filed: 01/11/23 11:46> Lab Results 01/11/23 01/11/23 01/11/23 Range/Units 11:57 11:57 14:05 WBC 10.9 H (4.8-10.8) X10*3/uL RBC 4.45 (4.20-5.50) X10*6/uL Hgb 13.6 (12.0-16.0) g/dl Hct 41.2 (37.0-47.0) % MCV 92.6 (80.0-98.0) fL MCH 30.6 (27.0-33.0) pg MCHC 33.0 (31.0-35.0) g/dl RDW 13.0 (11.0-16.0) % Plt Count 236 (160-400) X10*3/uL MPV 11.0 (9.4-12.3) fL Immature Gran % (Auto) 0.3 (0.0-0.4) % Neut % (Auto) 68.8 (45-73) % Lymph % (Auto) 23.3 (20-40) % [place] % (Auto) 6.3 (2-11) % Eos % (Auto) 0.8 (0-4) % Baso % (Auto) 0.5 (0-2) % Lymph # (Auto) 2.5 (1.2-4.9) X10*3/uL [place] # (Auto) 0.7 (0.1-1.2) X10*3/uL Eos # (Auto) 0.1 (0.0-0.4) X10*3/uL Baso # (Auto) 0.1 (0.0-0.2) X10*3/uL Abs Immat Gran (auto) 0.03 (0.00-0.03) X10*3/uL Absolute Neuts (auto) 7.5 (2.0-8.3) x10*3/uL Absolute Nucleated RBC 0.000 (0.0-0.012) X10*3/uL Nucleated RBC % (auto) 0.0 (0.0-0.2) /100WBC Sodium 140 (135-145) mmol/L Potassium 4.7 (3.3-5.1) mmol/L Chloride 107 (96-108) mmol/L Carbon Dioxide 24 (22-29) mmol/L Anion Gap 14 (12-20) BUN 13 (9-16) mg/dL Creatinine 0.80 (0.5-1.4) mg/dL Estim Creat Clear Calc 88.3 Estimated GFR > 60 Random Glucose 95 (60-115) mg/dL Calcium 9.3 (8.4-10.2) mg/dL Magnesium 1.7 (1.6-2.6) mg/dL Total Bilirubin 1.6 H (0.0-1.0) mg/dL Direct Bilirubin 0.3 (0.0-0.5) mg/dL AST 15 (5-31) U/L ALT 15 (0-31) U/L Alkaline Phosphatase 52 (39-117) U/L Troponin I High Sens 4.8 (<3.5-17.0) ng/L Total Protein 6.6 (6.5-8.0) g/dL Albumin 4.1 (3.5-5.0) g/dL TSH 1.25 (0.32-4.0) uIU/mL <Angelina Doshi MD - Last Filed: 01/11/23 14:42> Discharge Plan Discharge Clinical Impression: Heart palpitations <LIZ Nunes - Last Filed: 01/11/23 11:46> Patient Disposition: Home, Self-Care <LIZ Nunes - Last Filed: 01/11/23 11:46> Instructions: Heart Palpitations (ED) <LIZ Nunes - Last Filed: 01/11/23 11:46> Additional Instructions: Please follow-up with your primary care physician tomorrow. If you have any worsening or new symptoms, please return to the emergency room or call 911 <LIZ Nunes - Last Filed: 01/11/23 11:46> Prescriptions: No Action lorazepam [Ativan] 0.5 mg tablet 0.5 mg PO TID PRN (Reason: anxiety) Qty: 10 0RF Rx Instructions: patient may ask for partial fill nitrofurantoin monohyd/m-cryst [Macrobid] 100 mg capsule 100 mg PO Q12H 7 Days Qty: 14 0RF Rx Instructions: must administer with a meal/food lorazepam [Ativan] 1 mg tablet 1 mg PO Q8H PRN (Reason: anxiety) Qty: 14 0RF doxycycline monohydrate 100 mg capsule 100 mg PO BID 21 Days Qty: 42 0RF Rx Instructions: Positive lyme lorazepam [Ativan] 1 mg tablet 1 mg PO BID PRN (Reason: anxiety) Qty: 10 0RF lorazepam [Ativan] 1 mg tablet 1 mg PO BID PRN (Reason: anxiety) Qty: 10 0RF ondansetron 4 mg tablet,disintegrating 4 mg PO Q6H PRN (Reason: nausea and vomiting) Qty: 14 0RF amoxicillin-pot clavulanate 875-125 mg tablet 1 tab PO Q12H 10 Days Qty: 20 0RF oxycodone 5 mg capsule 5 mg PO Q8H PRN (Reason: pain) 3 Days Qty: 9 0RF Rx Instructions: Partial Fill upon patient request. promethazine 25 mg tablet 25 mg PO Q6H PRN (Reason: nausea and vomiting) Qty: 20 0RF ondansetron 4 mg tablet,disintegrating 4 mg PO Q8H PRN (Reason: nausea and vomiting) Qty: 10 0RF metoprolol tartrate 25 mg tablet 12.5 mg PO BID Qty: 30 0RF <LIZ Nunes - Last Filed: 01/11/23 11:46>
--- NOTE | 2023-01-11 11:45 | ECG_ITS ---
Test Reason : palpitations Blood Pressure : / mmHG Vent. Rate : 080 BPM Atrial Rate : 080 BPM P-R Int : 136 ms QRS Dur : 084 ms QT Int : 342 ms P-R-T Axes : 078 070 042 degrees QTc Int : 394 ms Normal sinus rhythm Normal ECG When compared with ECG of 22-OCT-2022 16:53, Premature ventricular complexes are no longer Present Referred By: Tiffany Palmer Electronically Signed By:MORENA KEARNS
--- NOTE | 2023-01-11 11:59 | MHC.EDTECH ---
EKG completed and signed by . Labs drawn and sent
[2023-01-11 12:01] LABS: MANUAL DIFF FLAG NO
[2023-01-11 12:10] LABS: Basophils Absolute Auto 0.1 X10*3/uL (0.0-0.2); Basophils Percent Auto 0.5 % (0-2); Eosinophils Absolute Auto 0.1 X10*3/uL (0.0-0.4); Eosinophils Percent Auto 0.8 % (0-4); Hematocrit 41.2 % (37.0-47.0); Hemoglobin 13.6 g/dl (12.0-16.0); Imm Gran Abs Auto 0.03 X10*3/uL (0.00-0.03); Imm Gran Pct Auto 0.3 % (0.0-0.4); Lymphocytes Absolute Auto 2.5 X10*3/uL (1.2-4.9); Lymphocytes Percent Auto 23.3 % (20-40); Mean Corpuscular Hemoglobin 30.6 pg (27.0-33.0); Mean Corpuscular Volume 92.6 fL (80.0-98.0); Monocytes Absolute Auto 0.7 X10*3/uL (0.1-1.2); Monocytes Percent Auto 6.3 % (2-11); Neutrophils Absolute Auto 7.5 x10*3/uL (2.0-8.3); Neutrophils Percent Auto 68.8 % (45-73); Platelet Count 236 X10*3/uL (160-400); Red Blood Count 4.45 X10*6/uL (4.20-5.50); White Blood Count 10.9 X10*3/uL (4.8-10.8)
[2023-01-11 12:27] LABS: Alanine Aminotransferase 15 U/L (0-31); Albumin Level 4.1 g/dL (3.5-5.0); Alkaline Phosphatase 52 U/L (39-117); Anion Gap 14 (12-20); Aspartate Amino Transferase 15 U/L (5-31); Bilirubin Direct 0.3 mg/dL (0.0-0.5); Bilirubin Total 1.6 mg/dL (0.0-1.0); Blood Urea Nitrogen 13 mg/dL (9-16); Calcium 9.3 mg/dL (8.4-10.2); Carbon Dioxide 24 mmol/L (22-29); Chloride 107 mmol/L (96-108); Creatinine Clr Calc Pharmacy 88.3; Estimated Glomerular Filt Rate > 60; Glucose Random 95 mg/dL (60-115); Magnesium 1.7 mg/dL (1.6-2.6); Potassium 4.7 mmol/L (3.3-5.1); Sodium 140 mmol/L (135-145); Total Protein 6.6 g/dL (6.5-8.0)
[2023-01-11 12:42] LABS: TSH reflex Free T4 1.25 uIU/mL (0.32-4.0)
[2023-01-11 14:00] VITALS: BP 118/66; PULSE 80; RESP 13; TEMP 36.8; O2SAT 100
[2023-01-11 14:30] LABS: Troponin-I High Sensitivity 4.8 ng/L (<3.5-17.0)
== END 2023-01-11 14:57 | disposition home or self-care (01) ==
PROVIDERS: Physician Assistant; Emergency Provider Emergency Medicine; PCP Nurse Practitioner Family
DX: R00.2 Palpitations (principal); Z79.899 Other long term (current) drug therapy
CPT/HCPCS: 36415; 80048; 80076; 83735; 84443; 84484; 85025; 93005; 99283; 99284

== ENCOUNTER 2023-01-20 18:11 | Emergency (ER) | payer OTHER, SELFPAY ==
[2023-01-20 18:14] VITALS: BP 131/71; PULSE 85; RESP 18; TEMP 36.6; O2SAT 97; BMI 24.2
--- NOTE | 2023-01-20 18:15 | ED.GENADULT ---
HPI - General Adult General Chief complaint: Arrhythmia/Palpitations Stated complaint: Palpitations Related Data Home Medications Medication Instructions Recorded Confirmed hydroxyzine HCl 50 mg tablet 50 mg PO BID PRN anxiety 04/23/23 propranolol 20 mg tablet 20 mg PO TID 04/23/23 Previous Rx's Medication Instructions Recorded lidocaine 5 % topical patch 1 patch topical DAILY PRN pain #30 03/24/23 (Lidoderm) ea gabapentin 100 mg capsule 100 mg PO BID #30 caps 04/19/23 meloxicam 15 mg tablet 15 mg PO DAILY #30 tabs 04/19/23 phenazopyridine 100 mg tablet 100 mg PO Q8H 6 doses #6 tabs 04/25/23 pantoprazole 40 mg tablet,delayed 40 mg PO DAILY #14 tabs 04/30/23 release (Protonix) Allergies Allergy/AdvReac Type Severity Reaction Status Date / Time No Known Allergies Allergy Unknown NOT Verified 06/14/23 13:33 APPLICABLE [facility] Past Medical History Medical History Anxiety delivery delivered Cholecystectomy planned Heart palpitations Lyme disease Social History Social History Alcohol intake: never Patient Tobacco Use Status: Current everyday Tobacco user Physical Exam ED Vital Signs: BMI result Body Mass Index 24.2 Course Course Course Narrative: RADHA 37-year-old female presents for evaluation of palpitations. She reports that this has been ongoing issue. She was seen here on 01/11/2023 for similar symptoms. She had a workup that included labs, EKG. She followed up with primary doctor and they stop the metoprolol and switch to propranolol. The patient states that her 1st dose of propranolol was yesterday. She also states that she is due to have a Holter monitor set up tomorrow. Plan to repeat labs including electrolytes, TSH, T4, EKG. Medical Decision Making Lab Data 01/20/23 18:34 01/20/23 18:34 Labs: Lab Results 01/20/23 01/20/23 01/20/23 Range/Units 18:34 18:34 18:34 WBC 10.1 (4.8-10.8) X10*3/uL RBC 4.19 L (4.20-5.50) X10*6/uL Hgb 13.1 (12.0-16.0) g/dl Hct 39.3 (37.0-47.0) % MCV 93.8 (80.0-98.0) fL MCH 31.3 (27.0-33.0) pg MCHC 33.3 (31.0-35.0) g/dl RDW 13.2 (11.0-16.0) % Plt Count 233 (160-400) X10*3/uL MPV 11.7 (9.4-12.3) fL Immature Gran % (Auto) 0.3 (0.0-0.4) % Neut % (Auto) 54.4 (45-73) % Lymph % (Auto) 36.0 (20-40) % [place] % (Auto) 6.9 (2-11) % Eos % (Auto) 1.8 (0-4) % Baso % (Auto) 0.6 (0-2) % Lymph # (Auto) 3.6 (1.2-4.9) X10*3/uL [place] # (Auto) 0.7 (0.1-1.2) X10*3/uL Eos # (Auto) 0.2 (0.0-0.4) X10*3/uL Baso # (Auto) 0.1 (0.0-0.2) X10*3/uL Abs Immat Gran (auto) 0.03 (0.00-0.03) X10*3/uL Absolute Neuts (auto) 5.5 (2.0-8.3) x10*3/uL Absolute Nucleated RBC 0.000 (0.0-0.012) X10*3/uL Nucleated RBC % (auto) 0.0 (0.0-0.2) /100WBC Sodium 140 (135-145) mmol/L Potassium 5.2 H (3.3-5.1) mmol/L Chloride 110 H (96-108) mmol/L Carbon Dioxide 25 (22-29) mmol/L Anion Gap 10 L (12-20) BUN 10 (9-16) mg/dL Creatinine 0.72 (0.5-1.4) mg/dL Estim Creat Clear Calc 102.1 Estimated GFR > 60 Random Glucose 98 (60-115) mg/dL Calcium 9.3 (8.4-10.2) mg/dL Total Bilirubin 0.9 (0.0-1.0) mg/dL AST 11 (5-31) U/L ALT 7 (0-31) U/L Alkaline Phosphatase 49 (39-117) U/L Troponin I High Sens < 3.5 (<3.5-17.0) ng/L Total Protein 6.7 (6.5-8.0) g/dL Albumin 4.1 (3.5-5.0) g/dL TSH 2.42 (0.32-4.0) uIU/mL Free T4 1.06 (0.71-1.85) ng/dL Discharge Plan Discharge Clinical Impression: Heart palpitations Patient Disposition: Elopement Prescriptions: No Action pantoprazole [Protonix] 40 mg tablet,delayed release (DR/EC) 40 mg PO DAILY Qty: 14 0RF lidocaine [Lidoderm] 5 % adhesive patch,medicated 1 patch topical DAILY MDD remove after 12 hours PRN (Reason: pain) Qty: 30 0RF Rx Instructions: leave on most painful area for up to 12 hrs meloxicam 15 mg tablet 15 mg PO DAILY Qty: 30 0RF gabapentin 100 mg capsule 100 mg PO BID Qty: 30 0RF propranolol 20 mg tablet 20 mg PO TID hydroxyzine HCl 50 mg tablet 50 mg PO BID PRN (Reason: anxiety) phenazopyridine 100 mg tablet 100 mg PO Q8H 0 Days Qty: 6 0RF Discharge Date/Time: 01/21/23 00:44
--- NOTE | 2023-01-20 18:20 | ECG_ITS ---
Test Reason : PALPITATIONS Blood Pressure : / mmHG Vent. Rate : 075 BPM Atrial Rate : 075 BPM P-R Int : 130 ms QRS Dur : 082 ms QT Int : 352 ms P-R-T Axes : 063 041 028 degrees QTc Int : 393 ms Normal sinus rhythm Normal ECG When compared with ECG of 11-JAN-2023 11:52, No significant change was found Referred By: Binu Marcum Electronically Signed By:IAN LAND MD
[2023-01-20 18:44] LABS: Basophils Absolute Auto 0.1 X10*3/uL (0.0-0.2); Basophils Percent Auto 0.6 % (0-2); Eosinophils Absolute Auto 0.2 X10*3/uL (0.0-0.4); Eosinophils Percent Auto 1.8 % (0-4); Hematocrit 39.3 % (37.0-47.0); Hemoglobin 13.1 g/dl (12.0-16.0); Imm Gran Abs Auto 0.03 X10*3/uL (0.00-0.03); Imm Gran Pct Auto 0.3 % (0.0-0.4); Lymphocytes Absolute Auto 3.6 X10*3/uL (1.2-4.9); MANUAL DIFF FLAG NO; Mean Corpuscular HGB Conc 33.3 g/dl (31.0-35.0); Mean Corpuscular Hemoglobin 31.3 pg (27.0-33.0); Mean Corpuscular Volume 93.8 fL (80.0-98.0); Mean Platelet Volume 11.7 fL (9.4-12.3); Monocytes Absolute Auto 0.7 X10*3/uL (0.1-1.2); Monocytes Percent Auto 6.9 % (2-11); Neutrophils Absolute Auto 5.5 x10*3/uL (2.0-8.3); Neutrophils Percent Auto 54.4 % (45-73); Platelet Count 233 X10*3/uL (160-400); Red Blood Count 4.19 X10*6/uL (4.20-5.50); Red Cell Distribution Width 13.2 % (11.0-16.0); White Blood Count 10.1 X10*3/uL (4.8-10.8)
[2023-01-20 19:08] LABS: Alanine Aminotransferase 7 U/L (0-31); Albumin Level 4.1 g/dL (3.5-5.0); Alkaline Phosphatase 49 U/L (39-117); Anion Gap 10 (12-20); Aspartate Amino Transferase 11 U/L (5-31); Bilirubin Total 0.9 mg/dL (0.0-1.0); Blood Urea Nitrogen 10 mg/dL (9-16); Calcium 9.3 mg/dL (8.4-10.2); Carbon Dioxide 25 mmol/L (22-29); Chloride 110 mmol/L (96-108); Creatinine Clr Calc Pharmacy 102.1; Estimated Glomerular Filt Rate > 60; Glucose Random 98 mg/dL (60-115); Potassium 5.2 mmol/L (3.3-5.1); Sodium 140 mmol/L (135-145); Total Protein 6.7 g/dL (6.5-8.0)
[2023-01-20 19:24] LABS: Free T4 (Free Thyroxine) 1.06 ng/dL (0.71-1.85); Thyroid Stimulating Hormone 2.42 uIU/mL (0.32-4.0)
[2023-01-20 19:33] LABS: Troponin-I High Sensitivity < 3.5 ng/L (<3.5-17.0)
== END 2023-01-21 00:44 | disposition left against medical advice (07) ==
PROVIDERS: Physician Assistant; Emergency Provider Emergency Medicine; PCP Nurse Practitioner Family
DX: R00.2 Palpitations (principal); F41.9 Anxiety disorder, unspecified; F17.200 Nicotine dependence, unspecified, uncomplicated; Z79.899 Other long term (current) drug therapy
CPT/HCPCS: 36415; 80053; 84439; 84443; 84484; 85025; 93005; 99283

== ENCOUNTER 2023-02-01 15:34 | Emergency (ER) | payer OTHER, SELFPAY ==
[2023-02-01 15:47] VITALS: BP 100/66; PULSE 98; RESP 18; TEMP 36.6; O2SAT 100; BMI 24.2
[2023-02-01 16:32] LABS: Influenza A PCR NEGATIVE (Negative); Influenza B PCR NEGATIVE (Negative); Resp Syncy Virus RNA Qual PCR NEGATIVE (Negative); SARS COV2 PCR INHOUSE NEGATIVE (Negative)
--- NOTE | 2023-02-01 17:31 | ED.GENADULT ---
HPI - General Adult General Chief complaint: Nausea/Vomiting/Diarrhea Stated complaint: body aches,chills Time Seen by Provider: 02/01/23 17:30 Source: patient Mode of arrival: ambulatory Limitations: no limitations History of Present Illness HPI narrative: Patient is a37 year old assigned female at with a history of anxiety presenting to the emergency department today with nausea and boy aches. 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 Patient denies any dizziness, lightheadedness, abdominal pain, vomiting, fever, chills, blurry vision, double vision, loss of vision, chest pain, difficulty breathing, shortness of breath, back pain, night sweats, pain with urination, increased urinary frequency, increased urinary urgency, blood in her urine or stool, syncope or a near syncopal episode, recent trauma or falls, bowel incontinence, bladder incontinence, bowel retention, bladder retention, or any other complaints at this time. Severity: mild Severity scale (1-10): 1 Exacerbating factors: none Associated symptoms: nausea/vomiting Treatments prior to arrival: none Related Data Previous Rx's Medication Instructions Recorded lorazepam 0.5 mg tablet (Ativan) 0.5 mg PO TID PRN anxiety #10 tabs 03/19/21 nitrofurantoin 100 mg PO Q12H 7 days #14 caps 01/15/22 monohydrate/macrocrystals 100 mg capsule (Macrobid) lorazepam 1 mg tablet (Ativan) 1 mg PO Q8H PRN anxiety #14 tabs 04/06/22 doxycycline monohydrate 100 mg 100 mg PO BID 21 days #42 caps 04/12/22 capsule amoxicillin 875 mg-potassium 1 tab PO Q12H 10 days #20 tabs 05/31/22 clavulanate 125 mg tablet oxycodone 5 mg capsule 5 mg PO Q8H PRN pain 3 days #9 caps 05/31/22 lorazepam 1 mg tablet (Ativan) 1 mg PO BID PRN anxiety #10 tabs 07/25/22 lorazepam 1 mg tablet (Ativan) 1 mg PO BID PRN anxiety #10 tabs 07/25/22 promethazine 25 mg tablet 25 mg PO Q6H PRN nausea and 07/25/22 vomiting #20 tabs ondansetron 4 mg disintegrating 4 mg PO Q6H PRN nausea and 08/01/22 tablet vomiting #14 tabs ondansetron 4 mg disintegrating 4 mg PO Q8H PRN nausea and 10/08/22 tablet vomiting #10 tabs metoprolol tartrate 25 mg tablet 12.5 mg PO BID #30 tabs 10/22/22 ondansetron 4 mg disintegrating 4 mg PO Q8H 3 days #9 tabs 02/01/23 tablet Allergies Allergy/AdvReac Type Severity Reaction Status Date / Time No Known Allergies Allergy Unknown NOT Verified 01/20/23 18:14 APPLICABLE Review of Systems Constitutional: Constitutional: Reports no additional constitutional complaints, Reports body ache(s), Denies chills, Denies fever(s) and Denies night sweats Eyes: Eyes: Reports no additional eye complaints, Denies blurry vision, Denies change in vision, Denies diplopia, Denies eye discharge, Denies loss of vision and Denies eye pain ENT: Denies dizziness Cardiovascular: Cardiovascular: Reports no additional cardiovascular complaints, Denies chest pain, Denies lightheadedness, Denies Loss of Consciousness and Denies dyspnea Respiratory: Respiratory: Reports no additional respiratory complaints and Denies dyspnea Gastrointestinal: Gastrointestinal: Reports no additional gastrointestinal complaints, Denies abdominal pain, Denies melena, Denies hematochezia, Denies change in bowel habits, Denies change in stool character and Reports nausea Genitourinary: Genitourinary: Denies hematuria, Denies urinary frequency, Denies dysuria, Denies urinary incontinence, Denies urinary hesitancy and Denies urinary urgency Musculoskeletal: Musculoskeletal: Reports no additional musculoskeletal complaints, Denies numbness and Denies tingling Neurologic: Denies dizziness, Denies loss of vision, Denies numbness and Denies tingling Psychiatric: Psychiatric: Reports no additional psychiatric complaints Endocrine: Endocrine: Reports no additional endocrine complaints Hematologic/Lymphatic: Hematologic/Lymphatic: Reports no additional hematologic/lymphatic complaints Allergic/Immunologic: Allergic/Immunologic: Reports no additional allergic/immunologic complaints PMFSH Past Medical History Attestation statement: The following information was validated with the patient. Source: old records reviewed and nursing notes reviewed Medical History Anxiety delivery delivered Cholecystectomy planned Heart palpitations Lyme disease Social History Social History Alcohol intake: never Patient Tobacco Use Status: Current everyday Tobacco user Advance Directives: No Advance Directives Information Provided: Yes Physical Exam ED Vital Signs: Vital Signs - 24 hr 02/01/23 15:47 Temperature 97.9 F Pulse Rate 98 Respiratory Rate 18 Blood Pressure 100/66 Pulse Oximetry 100 Oxygen Delivery Method Room Air BMI result Body Mass Index 24.2 Const General: cooperative, no acute distress, alert and awake Nutritional Appearance: well nourished Orientation/consciousness: patient oriented x3 Limitations: no limitations HENMT Head: Yes normal to inspection and Yes atraumatic Ears: hearing grossly normal bilaterally and external ears normal General nose exam: Normal external nose present, no nasal discharge noted and no epistaxis Face and sinus: Yes normal facial exam, No abrasion and No laceration Mouth: Normal oral and palatal mucosa present, no drooling and no muffled voice Eyes General: appearance normal, both eyes and all related structures Periorbital: periorbital findings normal Eyelids: Yes eyelids normal Conjunctivae: conjunctivae normal Pupils: Equal, round and reactive pupils present EOM: EOMs intact bilaterally Neck Neck: Yes normal visual inspection, Yes full ROM and Yes no lymphadenopathy Chest Chest palpation & inspection: normal inspection of the chest Resp Effort & Inspection: normal respiratory effort and able to speak in complete sentences Auscultation: clear to auscultation bilaterally Cardio Rate: regular rate Rhythm: regular rhythm GI Inspection: Yes normal to inspection Neuro General: patient oriented x3 and moves all extremities Cranial nerves: Yes Equal, round and reactive pupils present Cognition (Neuro): normal cognition Motor exam (neuro): 5/5 motor strength present throughout Sensory Exam: Normal double simultaneous stimulation for sensation Coordination: [id number] test normal Extrem General: Yes normal to inspection, Yes full ROM and Yes capillary refill normal Psych Appearance: grossly normal Mental Status: mental status grossly normal Affect: normal affect Attitude: cooperative Thought process: Normal thought process present Thought content: Normal thought content present Insight: Good insight present (Psych) Medications Administered Discontinued Medications Generic Name Dose Route Start Last Admin Trade Name Freq PRN Reason Stop Dose Admin Ondansetron HCl 4 mg 02/01/23 17:42 02/01/23 17:48 Ondansetron Odt 4 Mg Tab.Rapdis TRANSLINGU 02/01/23 17:43 4 mg ONCE ONE Administration Medical Decision Making Medical Decision Making [facility] Narrative: Patient is a 37 year old assigned female at with a history of anxiety presenting to the emergency department today with nausea and body aches. Patient's physical exam was unremarkable. Patient's COVID-19/RSV/Infuenza test was negative. I explained my physical exam findings as well as all test results to the patient. I answered all questions asked by the patient. Patient received ODT Zofran which she stated helped her symptoms significantly. I stressed the importance of the patient taking her medication as prescribed. I stressed the importance of the patient following up with her primary care provider. I stressed the importance of the patient returning to the emergency department immediately if her symptoms were to worsen or if she were to develop any dizziness, shortness of breath, difficulty breathing, chest pain, blurry vision, loss of vision, nausea, vomiting, abdominal pain, fever, chills, back pain, or any other complaints. Patient verbalized agreement and understanding with this treatment plan and discharge. Differential Diagnosis Differential Diagnoses: The differential diagnosis associated with the presentation includes Nausea, viral illness Lab Data [facility] Lab Attestation statement: I reviewed the patient's lab results. Labs: Lab Results 02/01/23 Range/Units 15:50 Influenza Type A (PCR) NEGATIVE (Negative) Influenza Type B (PCR) NEGATIVE (Negative) RSV RNA Qual (PCR) NEGATIVE (Negative) SARS-CoV-2 RNA (RT-PCR) NEGATIVE (Negative) Discharge Plan Discharge Clinical Impression: Nausea & vomiting Patient Disposition: Home, Self-Care Instructions: Acute Nausea and Vomiting (ED) Additional Instructions: Follow up with your primary care provider. Return to the emergency department immediately if your symptoms worsen or if you develop any dizziness, shortness of breath, difficulty breathing, chest pain, blurry vision, loss of vision, nausea, vomiting, abdominal pain, fever, chills, back pain, or any other complaints. Prescriptions: New ondansetron 4 mg tablet,disintegrating 4 mg PO Q8H 3 Days Qty: 9 0RF No Action lorazepam [Ativan] 0.5 mg tablet 0.5 mg PO TID PRN (Reason: anxiety) Qty: 10 0RF Rx Instructions: patient may ask for partial fill nitrofurantoin monohyd/m-cryst [Macrobid] 100 mg capsule 100 mg PO Q12H 7 Days Qty: 14 0RF Rx Instructions: must administer with a meal/food lorazepam [Ativan] 1 mg tablet 1 mg PO Q8H PRN (Reason: anxiety) Qty: 14 0RF doxycycline monohydrate 100 mg capsule 100 mg PO BID 21 Days Qty: 42 0RF Rx Instructions: Positive lyme lorazepam [Ativan] 1 mg tablet 1 mg PO BID PRN (Reason: anxiety) Qty: 10 0RF lorazepam [Ativan] 1 mg tablet 1 mg PO BID PRN (Reason: anxiety) Qty: 10 0RF ondansetron 4 mg tablet,disintegrating 4 mg PO Q6H PRN (Reason: nausea and vomiting) Qty: 14 0RF amoxicillin-pot clavulanate 875-125 mg tablet 1 tab PO Q12H 10 Days Qty: 20 0RF oxycodone 5 mg capsule 5 mg PO Q8H PRN (Reason: pain) 3 Days Qty: 9 0RF Rx Instructions: Partial Fill upon patient request. promethazine 25 mg tablet 25 mg PO Q6H PRN (Reason: nausea and vomiting) Qty: 20 0RF ondansetron 4 mg tablet,disintegrating 4 mg PO Q8H PRN (Reason: nausea and vomiting) Qty: 10 0RF metoprolol tartrate 25 mg tablet 12.5 mg PO BID Qty: 30 0RF Referrals: Simi Noland NP [Primary Care Provider] - Stand Alone Forms: Work/School Release Interventions: ED Discharge Assessment Last Done: 02/01/23 17:49 Discharge Date/Time: 02/01/23 17:50 Print Language: Guyanese
[2023-02-01] MEDS: Ondansetron ODT 4 MG TAB.RAPDIS TRANSLINGU (17:48)
== END 2023-02-01 17:50 | disposition home or self-care (01) ==
PROVIDERS: Emergency Provider Emergency Medicine Emergency Medical Services; PCP Nurse Practitioner Family
DX: R11.2 Nausea with vomiting, unspecified (principal); M79.10 Myalgia, unspecified site; Z20.822 Contact with and (suspected) exposure to COVID-19; Z20.828 Contact with and (suspected) exposure to other viral communicable diseases; Z79.899 Other long term (current) drug therapy
CPT/HCPCS: 0241U; 99282; 99283

== ENCOUNTER 2023-03-20 05:36 | Emergency (ER) | payer OTHER, SELFPAY ==
[2023-03-20 05:37] VITALS: BP 110/59; PULSE 76; RESP 18; TEMP 36.6; O2SAT 100; BMI 21.2
[2023-03-20 06:19] VITALS: BP 108/56; PULSE 70; RESP 16; TEMP 36.7; O2SAT 98
[2023-03-20 06:29] LABS: Appearance Urine Cloudy; Color Urine Yellow; Glucose Urine UA Negative (Negative); Leukocyte Esterase Urine Small (1+) (Negative); Nitrite Urine Negative (Negative); PH 7.5 (5.0-9.0); Specific Gravity - Urine 1.025 (1.005-1.025); UMIC TRIGGER UACC YES; Urine Blood Negative (Negative); Urine Ketones Negative (Negative); Urine Protein Trace mg/dL (Neg-Trace)
--- NOTE | 2023-03-20 06:30 | ED_ITS ---
HPI - Female Genitourinary General Chief complaint: Urogenital-Female Stated complaint: UTI? Time Seen by Provider: 03/20/23 06:30 Source: patient Mode of arrival: ambulatory Limitations: no limitations History of Present Illness HPI Narrative: Patient is a 37 year old assigned female at with a history of anxiety presenting to the emergency department today with increased urinary frequency. Patient states that she feels like she has had to urinate much more and having intermittent abdominal cramping. Patient states that previously when she has had urinay tract infections, they have felt like this. Patient denies any dizziness, lightheadedness, nausea, vomiting, fever, chills, blurry vision, double vision, loss of vision, chest pain, difficulty breathing, shortness of breath, back pain, night sweats, pain with urination, increased urinary urgency, blood in her urine or stool, syncope or a near syncopal episode, recent trauma or falls, bowel incontinence, bladder incontinence, bowel retention, bladder retention, or any other complaints at this time. MD elicited complaint: UTI Related Data Previous Rx's Medication Instructions Recorded lorazepam 0.5 mg tablet (Ativan) 0.5 mg PO TID PRN anxiety #10 tabs 03/19/21 nitrofurantoin 100 mg PO Q12H 7 days #14 caps 01/15/22 monohydrate/macrocrystals 100 mg capsule (Macrobid) lorazepam 1 mg tablet (Ativan) 1 mg PO Q8H PRN anxiety #14 tabs 04/06/22 doxycycline monohydrate 100 mg 100 mg PO BID 21 days #42 caps 04/12/22 capsule amoxicillin 875 mg-potassium 1 tab PO Q12H 10 days #20 tabs 05/31/22 clavulanate 125 mg tablet oxycodone 5 mg capsule 5 mg PO Q8H PRN pain 3 days #9 caps 05/31/22 lorazepam 1 mg tablet (Ativan) 1 mg PO BID PRN anxiety #10 tabs 07/25/22 lorazepam 1 mg tablet (Ativan) 1 mg PO BID PRN anxiety #10 tabs 07/25/22 promethazine 25 mg tablet 25 mg PO Q6H PRN nausea and 07/25/22 vomiting #20 tabs ondansetron 4 mg disintegrating 4 mg PO Q6H PRN nausea and 08/01/22 tablet vomiting #14 tabs ondansetron 4 mg disintegrating 4 mg PO Q8H PRN nausea and 10/08/22 tablet vomiting #10 tabs metoprolol tartrate 25 mg tablet 12.5 mg PO BID #30 tabs 10/22/22 ondansetron 4 mg disintegrating 4 mg PO Q8H 3 days #9 tabs 02/01/23 tablet cephalexin 500 mg capsule 500 mg PO Q6H 7 days #28 caps 03/20/23 Allergies Allergy/AdvReac Type Severity Reaction Status Date / Time No Known Allergies Allergy Unknown NOT Verified 01/20/23 18:14 APPLICABLE Review of Systems Constitutional: Constitutional: Reports no additional constitutional complaints, Denies chills, Denies fever(s) and Denies night sweats Eyes: Eyes: Reports no additional eye complaints, Denies blurry vision, Denies change in vision, Denies diplopia, Denies eye discharge, Denies loss of vision and Denies eye pain ENT: Denies dizziness Cardiovascular: Cardiovascular: Reports no additional cardiovascular complaints, Denies chest pain, Denies lightheadedness, Denies Loss of Consciousness and Denies dyspnea Respiratory: Respiratory: Reports no additional respiratory complaints and Denies dyspnea Gastrointestinal: Gastrointestinal: Reports no additional gastrointestinal complaints, Denies abdominal pain, Denies melena, Denies hematochezia, Denies change in bowel habits and Denies change in stool character Genitourinary: Genitourinary: Denies hematuria, Denies urinary frequency, Denies dysuria, Denies urinary incontinence, Denies urinary hesitancy and Reports urinary urgency Comments: increased urinary frequency Musculoskeletal: Musculoskeletal: Reports no additional musculoskeletal comp laints, Denies numbness and Denies tingling Neurologic: Denies dizziness, Denies loss of vision, Denies numbness and Denies tingling Psychiatric: Psychiatric: Reports no additional psychiatric complaints Endocrine: Endocrine: Reports no additional endocrine complaints Hematologic/Lymphatic: Hematologic/Lymphatic: Reports no additional hematologic/lymphatic complaints Allergic/Immunologic: Allergic/Immunologic: Reports no additional allergic/immunologic complaints PMFSH Past Medical History Attestation statement: The following information was validated with the patient. Source: old records reviewed and nursing notes reviewed Medical History Anxiety delivery delivered Cholecystectomy planned Heart palpitations Lyme disease Social History Social History Alcohol intake: never Patient Tobacco Use Status: Current everyday Tobacco user Advance Directives: No Advance Directives Information Provided: Yes Physical Exam Vital Signs: Vital Signs: Last Vital Signs Temp 98.1 F 03/20/23 06:19 Pulse 70 03/20/23 06:19 Resp 16 03/20/23 06:19 BP 108/56 L 03/20/23 06:19 Pulse Ox 98 03/20/23 06:19 O2 Del Method Room Air 03/20/23 06:19 BMI result Body Mass Index 21.2 Const: General: cooperative, no acute distress, alert and awake Nutritional Appearance: well nourished Orientation/consciousness: patient oriented x3 Limitations: no limitations HEENT: Head: Yes normal to inspection and Yes atraumatic Ears: hearing grossly normal bilaterally and external ears normal General nose exam: Normal external nose present, no nasal discharge noted and no epistaxis Face and sinus: Yes normal facial exam, No abrasion and No laceration Mouth: Normal oral and palatal mucosa present, no drooling and no muffled voice Eyes: General: appearance normal, both eyes and all related structures Periorbital: periorbital findings normal Eyelids: Yes eyelids normal Conjunctivae: conjunctivae normal Pupils: Equal, round and reactive pupils present EOM: EOMs intact bilaterally Neck: Neck: Yes normal visual inspection, Yes full ROM and Yes no lymphadenopathy Chest: Chest palpation & inspection: normal inspection of the chest Resp: Effort & Inspection: normal respiratory effort and able to speak in complete sentences GI: Inspection: Yes normal to inspection Palpation (GI): Soft to palpation, not firm, nontender and no guarding : General: Yes no CVA tenderness Back/Spine/Pelvis: Back: no CVA tenderness Neuro: General: patient oriented x3 and moves all extremities Cranial nerves: Yes Equal, round and reactive pupils present Cognition (Neuro): normal cognition Motor exam (neuro): 5/5 motor strength present throughout Sensory Exam: Normal double simultaneous stimulation for sensation Coordination: [id number] test normal Extrem: General: Yes normal to inspection, Yes full ROM and Yes capillary refill normal Psych: Appearance: grossly normal Mental Status: mental status grossly normal Affect: normal affect Attitude: cooperative Thought process: Normal thought process present Thought content: Normal thought content present Insight: Good insight present (Psych) Medical Decision Making Medical Decision Making [facility] Narrative: Patient is a 37 year old assigned female at with a history of anxiety presenting to the emergency department today with increased urinary frequency. Patient's physical exam was unremarkable. Patient's urine showed a possible UTI. Given the patient's history and urine results, will treat for UTI. I explained my physical exam findings as well as all test results to the patient. I answered all questions asked by the patient. I stressed the importance of the patient taking her medication as prescribed. I stressed the importance of the patient following up with her primary care provider. I stressed the importance of the patient returning to the emergency department immediately if her symptoms were to worsen or if she were to develop any dizziness, shortness of breath, difficulty breathing, chest pain, blurry vision, loss of vision, nausea, vomiting, abdominal pain, fever, chills, back pain, or any other complaints. Patient verbalized agreement and understanding with this treatment plan and discharge. Differential Diagnosis Differential Diagnoses: The differential diagnosis associated with the presentation includes UTI Lab Data [facility] Lab Attestation statement: I reviewed the patient's lab results. Labs: Lab Results 03/20/23 03/20/23 Range/Units 06:22 06:22 Urine Color Yellow Urine Appearance Cloudy Urine pH 7.5 (5.0-9.0) Ur Specific [place] 1.025 (1.005-1.025) Urine Protein Trace (Neg-Trace) mg/dL Urine Glucose (UA) Negative (Negative) mg/dL Urine Ketones Negative (Negative) mg/dL Urine Blood Negative (Negative) Urine Nitrite Negative (Negative) Ur Leukocyte Esterase Small (1+) H (Negative) Urine RBC 3-5 H (0-2) /HPF Urine WBC 11-20 H (0-5) /HPF Ur Squamous Epith Cells >20 (0-2) /HPF Urine Bacteria 2+ (None Seen) Hyaline Casts 0-2 (0-2) /LPF Urine Test NEGATIVE (NEGATIVE) Discharge Plan Discharge Clinical Impression: Urinary tract infection Patient Disposition: Home, Self-Care Instructions: Urinary Tract Infection in Women (DC) Additional Instructions: Follow up with your primary care provider. Return to the emergency department immediately if your symptoms worsen or if you develop any dizziness, shortness of breath, difficulty breathing, chest pain, blurry vision, loss of vision, nausea, vomiting, abdominal pain, fever, chills, back pain, or any other complaints. Prescriptions: New cephalexin 500 mg capsule 500 mg PO Q6H 7 Days Qty: 28 0RF No Action lorazepam [Ativan] 0.5 mg tablet 0.5 mg PO TID PRN (Reason: anxiety) Qty: 10 0RF Rx Instructions: patient may ask for partial fill nitrofurantoin monohyd/m-cryst [Macrobid] 100 mg capsule 100 mg PO Q12H 7 Days Qty: 14 0RF Rx Instructions: must administer with a meal/food lorazepam [Ativan] 1 mg tablet 1 mg PO Q8H PRN (Reason: anxiety) Qty: 14 0RF doxycycline monohydrate 100 mg capsule 100 mg PO BID 21 Days Qty: 42 0RF Rx Instructions: Positive lyme lorazepam [Ativan] 1 mg tablet 1 mg PO BID PRN (Reason: anxiety) Qty: 10 0RF lorazepam [Ativan] 1 mg tablet 1 mg PO BID PRN (Reason: anxiety) Qty: 10 0RF ondansetron 4 mg tablet,disintegrating 4 mg PO Q6H PRN (Reason: nausea and vomiting) Qty: 14 0RF amoxicillin-pot clavulanate 875-125 mg tablet 1 tab PO Q12H 10 Days Qty: 20 0RF oxycodone 5 mg capsule 5 mg PO Q8H PRN (Reason: pain) 3 Days Qty: 9 0RF Rx Instructions: Partial Fill upon patient request. promethazine 25 mg tablet 25 mg PO Q6H PRN (Reason: nausea and vomiting) Qty: 20 0RF ondansetron 4 mg tablet,disintegrating 4 mg PO Q8H PRN (Reason: nausea and vomiting) Qty: 10 0RF metoprolol tartrate 25 mg tablet 12.5 mg PO BID Qty: 30 0RF ondansetron 4 mg tablet,disintegrating 4 mg PO Q8H 3 Days Qty: 9 0RF Referrals: Simi Noland NP [Primary Care Provider] - Print Language: Swedish
[2023-03-20 06:31] LABS: UPreg QC Valid YES; Urine Pregnancy NEGATIVE (NEGATIVE)
--- NOTE | 2023-03-20 06:32 | PC.NURSE ---
pt c/o dysuria and abd pain 4/10 began 2 days ago aox4 no apparent distress
[2023-03-20 06:43] LABS: Bacteria Urine 2+ (None Seen); Hyaline Casts Urine 0-2 /LPF (0-2); Squamous Epithelial Cell Urine >20 /HPF (0-2); UACC Culture Trigger YES
--- NOTE | 2023-03-20 07:01 | PC.NURSE ---
Discharge instructions given and explained to patient No apparent distress, ambulates safely and independently aox4
== END 2023-03-20 07:01 | disposition home or self-care (01) ==
PROVIDERS: Emergency Provider Emergency Medicine; PCP Nurse Practitioner Family
DX: N39.0 Urinary tract infection, site not specified (principal); Z79.899 Other long term (current) drug therapy
CPT/HCPCS: 81001; 81025; 87086; 99283; 99284

== ENCOUNTER 2023-03-24 15:27 | Emergency (ER) | payer OTHER, SELFPAY ==
--- NOTE | ~2023-03-24 | CT_ITS ---
EXAMINATION: CT abdomen pelvis wo IV con CLINICAL INFORMATION: Reason for Exam L flank pain, recent uti ?pyelo vs stone COMPARISON: No prior CT available for comparison. TECHNIQUE: Multidetector volumetric imaging was performed from the superior aspect of the liver through the pubic symphysis , noncontrasted study. Sagittal and coronal reformatted images were obtained on the technologist's workstation. This CT examination was performed using dose optimization techniques as appropriate, variously including the following: *Automated exposure control *Adjustment of mA and/or kV according to patient size (this includes techniques or standardized protocols for targeted exams where dose is matched to indication/reason for exam; i.e. extremities or head) *Use of iterative reconstruction technique DLP: 470 mGy-cm FINDINGS: LOWER THORAX: Included lung bases are clear. HEPATOBILIARY: No focal hepatic lesions. No biliary ductal dilatation. GALLBLADDER: Gallbladder has been removed. SPLEEN: Spleen is normal in size. PANCREAS: No focal mass or ductal dilatation. STOMACH AND GASTROINTESTINAL TRACT: Stomach is grossly unremarkable. There is no bowel distention or thickening. No CT evidence of appendicitis. ADRENALS: No adrenal nodules. KIDNEYS/URETERS: Both kidneys maintain normal size, homogeneous texture, there is 2 mm calcific density along the course of the left ureter seen in the pelvis at image 77 series of 3 concerning for possible tiny nonobstructing kidney stone. No significant hydronephrosis. Assessment for possible pyelonephritis is limited due to lack of contrast however the renal cortices are homogeneous on noncontrast CT.. URINARY BLADDER: Partially decompressed. PELVIC VISCERA: There are calcifications in the pelvis felt to be vascular phleboliths. PERITONEUM: No free air or fluid. LYMPH NODES: No lymphadenopathy. VASCULAR:Abdominal aorta normal in size, no aneurysm found. BONES, ABDOMINAL WALL AND SOFT TISSUES: Age-appropriate changes of the spine and skeletal system, no destructive osteolytic or osteosclerotic bone lesion found CT/CT abdomen pelvis wo IV con IMPRESSION: * There is a 2 mm calcific density along the course of the left ureter in the pelvis concerning for possible tiny nonobstructing kidney stone. No significant hydronephrosis. * Assessment for possible pyelonephritis is limited due to lack of contrast however the renal cortices are homogeneous on noncontrast CT. If there is high index suspicion for possible pyelonephritis would recommend correlation with follow-up contrast enhanced cross-sectional study CT scan or MRI. * Status post cholecystectomy.
[2023-03-24 15:54] VITALS: BP 112/74; PULSE 66; RESP 18; TEMP 36.6; O2SAT 98; BMI 25.0
--- NOTE | 2023-03-24 15:54 | ED.GENADULT ---
HPI - General Adult General Chief complaint: Urogenital-Female <LIZ Bhakta - Last Filed: 03/24/23 19:56> Stated complaint: flank pain, ?Uti <LIZ Bhakta - Last Filed: 03/24/23 19:56> Time Seen by Provider: 03/24/23 16:59 <LIZ Bhakta - Last Filed: 03/24/23 19:56> Source: patient, RN notes reviewed and old records reviewed <LIZ Schilling - Last Filed: 03/24/23 18:21> Mode of arrival: ambulatory <LIZ Schilling Last Filed: 03/24/23 18:21> History of Present Illness HPI narrative: 37-year-old female with a past medical history of anxiety, cholecystectomy, Lyme disease, recently diagnosed with UTI on 03/20 started on Keflex, presenting to the ED complaining of intermittent left side/flank pain x 5 days. Admits pain was present during prior ED evaluation however persistent. Reports mild continued dysuria. Denies fever, chills, nausea, vomiting, diarrhea/constipation, abnormal vaginal bleeding/discharge <LIZ Schilling - Last Filed: 03/24/23 18:21> Onset (ago): day(s) <LIZ Schilling - Last Filed: 03/24/23 18:21> Related Data Home medications: Previous Rx's Medication Instructions Recorded lorazepam 0.5 mg tablet (Ativan) 0.5 mg PO TID PRN anxiety #10 tabs 03/19/21 nitrofurantoin 100 mg PO Q12H 7 days #14 caps 01/15/22 monohydrate/macrocrystals 100 mg capsule (Macrobid) lorazepam 1 mg tablet (Ativan) 1 mg PO Q8H PRN anxiety #14 tabs 04/06/22 doxycycline monohydrate 100 mg 100 mg PO BID 21 days #42 caps 04/12/22 capsule amoxicillin 875 mg-potassium 1 tab PO Q12H 10 days #20 tabs 05/31/22 clavulanate 125 mg tablet oxycodone 5 mg capsule 5 mg PO Q8H PRN pain 3 days #9 caps 05/31/22 lorazepam 1 mg tablet (Ativan) 1 mg PO BID PRN anxiety #10 tabs 07/25/22 lorazepam 1 mg tablet (Ativan) 1 mg PO BID PRN anxiety #10 tabs 07/25/22 promethazine 25 mg tablet 25 mg PO Q6H PRN nausea and 07/25/22 vomiting #20 tabs ondansetron 4 mg disintegrating 4 mg PO Q6H PRN nausea and 08/01/22 tablet vomiting #14 tabs ondansetron 4 mg disintegrating 4 mg PO Q8H PRN nausea and 10/08/22 tablet vomiting #10 tabs metoprolol tartrate 25 mg tablet 12.5 mg PO BID #30 tabs 10/22/22 ondansetron 4 mg disintegrating 4 mg PO Q8H 3 days #9 tabs 02/01/23 tablet cephalexin 500 mg capsule 500 mg PO Q6H 7 days #28 caps 03/20/23 lidocaine 5 % topical patch 1 patch topical DAILY PRN pain #30 03/24/23 (Lidoderm) ea naproxen 500 mg tablet 500 mg PO BID PRN pain 10 days #20 03/24/23 tabs prednisone 20 mg tablet 40 mg PO DAILY 5 days #10 tabs 03/24/23 <LIZ Bhakta - Last Filed: 03/24/23 19:56> Allergies/adverse reactions: Allergies Allergy/AdvReac Type Severity Reaction Status Date / Time No Known Allergies Allergy Unknown NOT Verified 03/24/23 15:57 APPLICABLE <LIZ Bhakta Last Filed: 03/24/23 19:56> Review of Systems Review of Systems: Constitutional: No Fever, No Chills, No Fatigue, No Malaise ENT/Mouth: No Ear Pain, No Nasal Congestion, No sore throat, No Rhinorrhea, No Swallowing Difficulty Eyes: No Eye Pain, No Swelling, No Redness, No Vision Changes Cardiovascular: No Chest Pain, No SOB, No Edema, No Palpitations Respiratory: No Cough, No Sputum, No Dyspnea Gastrointestinal: No Nausea, No Vomiting, No Diarrhea, No Constipation, No Abdominal pain Genitourinary: + Dysuria, No Urinary Frequency, No Hematuria, No Urinary Incontinence/retention, + Flank Pain Musculoskeletal: No joint pain, No Myalgias, No Joint Swelling Skin: No Skin Lesions, No rash Neuro: No Weakness, No Headache <LIZ Schilling - Last Filed: 03/24/23 18:21> Yes all other systems are reviewed and are negative <LIZ Schilling - Last Filed: 03/24/23 18:21> Constitutional: Constitutional: Reports as per HPI <LIZ Schilling - Last Filed: 03/24/23 18:21> [facility] Past Medical History Attestation statement: The following information was validated with the patient. <LIZ Schilling - Last Filed: 03/24/23 18:21> Source: old records reviewed <LIZ Schilling - Last Filed: 03/24/23 18:21> Medical History: Medical History Anxiety delivery delivered Cholecystectomy planned Heart palpitations Lyme disease <LIZ Bhakta - Last Filed: 03/24/23 19:56> Social History Social History: Social History Alcohol intake: never Patient Tobacco Use Status: Current everyday Tobacco user Advance Directives: No Advance Directives Information Provided: No <LIZ Bhakta - Last Filed: 03/24/23 19:56> Physical Exam ED Vital Signs: Vital Signs - 24 hr 03/24/23 15:54 03/24/23 16:00 Temperature 98 F 97.8 F Pulse Rate 66 81 Respiratory Rate 18 16 Blood Pressure 112/74 120/80 Pulse Oximetry 98 99 Oxygen Delivery Method Room Air Room Air BMI result Body Mass Index 25.0 <LIZ Bhakta - Last Filed: 03/24/23 19:56> Vital Signs - 24 hr 03/24/23 15:54 03/24/23 16:00 Temperature 98 F 97.8 F Pulse Rate 66 81 Respiratory Rate 18 16 Blood Pressure 112/74 120/80 Pulse Oximetry 98 99 Oxygen Delivery Method Room Air Room Air BMI result Body Mass Index 25.0 <LIZ Schilling - Last Filed: 03/24/23 18:21> Const General: cooperative, healthy appearing and no acute distress <LIZ Schilling Last Filed: 03/24/23 18:21> Orientation/consciousness: patient oriented x3 <Mikaela Andujar PA - Last Filed: 03/24/23 18:21> Limitations: no limitations <Mikaela Andujar PA - Last Filed: 03/24/23 18:21> HENMT Head: Yes normal to inspection and Yes atraumatic <Mikaela Andujar PA - Last Filed: 03/24/23 18:21> Ears: hearing grossly normal bilaterally <Mikaela Andujar PA - Last Filed: 03/24/23 18:21> General nose exam: Normal external nose present <Mikaela Andujar PA - Last Filed: 03/24/23 18:21> Face and sinus: Yes normal facial exam <LIZ Schilling - Last Filed: 03/24/23 18:21> Eyes General: appearance normal, both eyes and all related structures <Mikaela Andujar PA - Last Filed: 03/24/23 18:21> EOM: EOMs intact bilaterally <Mikaela Andujar PA - Last Filed: 03/24/23 18:21> Neck Neck: Yes normal visual inspection and Yes no meningeal signs <Mikaela Andujar PA - Last Filed: 03/24/23 18:21> Resp Effort & Inspection: normal respiratory effort and no respiratory distress <Mikaela Andujar PA - Last Filed: 03/24/23 18:21> Cardio Rate: regular rate <Mikaela Andujar PA - Last Filed: 03/24/23 18:21> GI Inspection: Yes normal to inspection <Mikaela Andujar PA - Last Filed: 03/24/23 18:21> Palpation (GI): Soft to palpation, nontender, no guarding and not rigid <Mikaela Andujar PA - Last Filed: 03/24/23 18:21> General: Yes no CVA tenderness <Mikaela Andujar PA - Last Filed: 03/24/23 18:21> Back/Spine/Pelvis Back: no CVA tenderness <Mikaela Andujar PA - Last Filed: 03/24/23 18:21> Skin Rashes: no rashes <Mikaela Andujar PA - Last Filed: 03/24/23 18:21> Wounds: no wounds <LIZ Schilling Last Filed: 03/24/23 18:21> Neuro General: patient oriented x3, tone normal and no meningeal signs <LIZ Schilling Last Filed: 03/24/23 18:21> Gait exam (Neuro): Normal gait present <LIZ Schilling Last Filed: 03/24/23 18:21> Extrem General: Yes normal to inspection <LIZ Schilling Last Filed: 03/24/23 18:21> Course Course Course Narrative: This is an RME: Additional HPI, ROS, PE not included below will be deferred to primary provider. 37-year-old female presents with left-sided flank pain worsening over the past few days, on 03/20/2023 was diagnosed with UTI, patient reports that she is currently taking Keflex but despite taking antibiotics she is now having flank pain. Denies fevers, chills, nausea, vomiting, headache, vision changes, dizziness, weakness, chest pain and shortness of breath denies trauma to the area. No hx of stones physical exam benign plan urine basic labs. <LIZ Bhakta - Last Filed: 03/24/23 19:56> This is an RME: Additional HPI, ROS, PE not included below will be deferred to primary provider. 37-year-old female presents with left-sided flank pain worsening over the past few days, on 03/20/2023 was diagnosed with UTI, patient reports that she is currently taking Keflex but despite taking antibiotics she is now having flank pain. Denies fevers, chills, nausea, vomiting, headache, vision changes, dizziness, weakness, chest pain and shortness of breath denies trauma to the area. No hx of stones physical exam benign plan urine basic labs. -1809--labs reassuring. Renal function WNL. UA with blood and rbc's, patient currently on menses > not infected -1900--ED care transferred to [facility] Weber pending CT. Dispo per results <LIZ Schilling Last Filed: 03/24/23 18:21> Reevaluation(s) Reevaluation #1: CT OF THE ABDOMEN PELVIS W/ 2 MM CALCIFIC DENSITY ALONG THE COURSE OF THE LEFT URETER IN THE PELVIS CONCERNING FOR POSSIBLE TINY NONOBSTRUCTING KIDNEY STONE. PATIENT CURRENTLY ON ANTIBIOTICS WILL PRESCRIBE PREDNISONE. UNLIKELY THAT THIS IS PYELONEPHRITIS HOWEVER PATIENT ALREADY AND ANTIBIOTICS. EDUCATED PATIENT ON DIAGNOSIS AND TREATMENT PLAN, ANSWERED ALL QUESTION, PATIENT VERBALIZES UNDERSTANDING. AT THIS TIME PATIENT WILL BE DISCHARGED HOME, ADVISED TO RETURN WITH NEW OR WORSENING SYMPTOMS. EDUCATED ON WORRISOME SIGNS AND SYMPTOMS AND WHEN TO RETURN. AT THIS TIME I FEEL COMFORTABLE DISCHARGE HOME. <LIZ Bhakta - Last Filed: 03/24/23 19:56> Time: 19:56 <LIZ Bhakta Last Filed: 03/24/23 19:56> Medical Decision Making Medical Decision Making MDM Narrative: 37-year-old female with a past medical history of anxiety, cholecystectomy, Lyme disease, recently diagnosed with UTI on 03/20 started on Keflex, presenting to the ED complaining of intermittent left side/flank pain x 5 days. On exam vital signs stable, NAD, nontoxic appearing, abdomen soft/nontender, no CVAT, pain not reproducible, no rash/erythema. Concern for continued UTI, although previous UA was very contaminated & culture consistent with urogenital contamination vs possible pyelonephritis vs renal stone. Low suspicion for STI, ovarian torsion/cyst, appendicitis/diverticulitis Plan: Labs, UA, CT AP, re-evaluate Please refer to course for remaining clinical decision making, interpretation of labs/imaging results, and discussions with consultants and/or family members. <LIZ Schilling Last Filed: 03/24/23 18:21> Differential Diagnosis Differential Diagnoses: The differential diagnosis associated with the presentation includes <LIZ Schilling Last Filed: 03/24/23 18:21> As above <LIZ Schilling Last Filed: 03/24/23 18:21> Admission/Observation Consideration of admission/observation: Escalation of care including admission/observation considered <LIZ Schilling Last Filed: 03/24/23 18:21> Lab Data [facility] Lab Attestation statement: I reviewed the patient's lab results. <LIZ Schilling Last Filed: 03/24/23 18:21> Result Diagrams: 03/24/23 17:27 03/24/23 17:27 <LIZ Bhakta - Last Filed: 03/24/23 19:56> Labs: Lab Results 03/24/23 03/24/23 03/24/23 Range/Units 17:24 17:24 17:24 WBC (4.8-10.8) X10*3/uL RBC (4.20-5.50) X10*6/uL Hgb (12.0-16.0) g/dl Hct (37.0-47.0) % MCV (80.0-98.0) fL MCH (27.0-33.0) pg MCHC (31.0-35.0) g/dl RDW (11.0-16.0) % Plt Count (160-400) X10*3/uL MPV (9.4-12.3) fL Immature Gran % (Auto) (0.0-0.4) % Neut % (Auto) (45-73) % Lymph % (Auto) (20-40) % [place] % (Auto) (2-11) % Eos % (Auto) (0-4) % Baso % (Auto) (0-2) % Lymph # (Auto) (1.2-4.9) X10*3/uL [place] # (Auto) (0.1-1.2) X10*3/uL Eos # (Auto) (0.0-0.4) X10*3/uL Baso # (Auto) (0.0-0.2) X10*3/uL Abs Immat Gran (auto) (0.00-0.03) X10*3/uL Absolute Neuts (auto) (2.0-8.3) x10*3/uL Absolute Nucleated RBC (0.0-0.012) X10*3/uL Nucleated RBC % (auto) (0.0-0.2) /100WBC Sodium (135-145) mmol/L Potassium (3.3-5.1) mmol/L Chloride (96-108) mmol/L Carbon Dioxide (22-29) mmol/L Anion Gap (12-20) BUN (9-16) mg/dL Creatinine (0.5-1.4) mg/dL Estim Creat Clear Calc Estimated GFR Random Glucose (60-115) mg/dL Calcium (8.4-10.2) mg/dL Magnesium (1.6-2.6) mg/dL Total Bilirubin (0.0-1.0) mg/dL AST (5-31) U/L ALT (0-31) U/L Alkaline Phosphatase (39-117) U/L Total Protein (6.5-8.0) g/dL Albumin (3.5-5.0) g/dL Lipase (8-78) U/L Urine Color Yellow Urine Appearance Turbid Urine pH 7.5 (5.0-9.0) Ur Specific [place] 1.025 (1.005-1.025) Urine Protein Negative (Neg-Trace) mg/dL Urine Glucose (UA) Negative (Negative) mg/dL Urine Ketones Trace (Negative) mg/dL Urine Blood Trace H (Negative) Urine Nitrite Negative (Negative) Ur Leukocyte Esterase Negative (Negative) Urine RBC 6-10 H (0-2) /HPF Urine WBC 0-5 (0-5) /HPF Ur Squamous Epith Cells 0-2 (0-2) /HPF Urine Bacteria None Seen (None Seen) Hyaline Casts 0-2 (0-2) /LPF Urine Test NEGATIVE (NEGATIVE) COVID-19 ([facility]) Negative (Negative) COVID-19 Clin Com See Note 03/24/23 03/24/23 03/24/23 Range/Units 17:27 17:27 17:27 WBC 9.4 (4.8-10.8) X10*3/uL RBC 4.13 L (4.20-5.50) X10*6/uL Hgb 12.8 (12.0-16.0) g/dl Hct 38.0 (37.0-47.0) % MCV 92.0 (80.0-98.0) fL MCH 31.0 (27.0-33.0) pg MCHC 33.7 (31.0-35.0) g/dl RDW 13.0 (11.0-16.0) % Plt Count 183 (160-400) X10*3/uL MPV 11.7 (9.4-12.3) fL Immature Gran % (Auto) 0.3 (0.0-0.4) % Neut % (Auto) 56.9 (45-73) % Lymph % (Auto) 34.0 (20-40) % [place] % (Auto) 6.4 (2-11) % Eos % (Auto) 1.9 (0-4) % Baso % (Auto) 0.5 (0-2) % Lymph # (Auto) 3.2 (1.2-4.9) X10*3/uL [place] # (Auto) 0.6 (0.1-1.2) X10*3/uL Eos # (Auto) 0.2 (0.0-0.4) X10*3/uL Baso # (Auto) 0.1 (0.0-0.2) X10*3/uL Abs Immat Gran (auto) 0.03 (0.00-0.03) X10*3/uL Absolute Neuts (auto) 5.3 (2.0-8.3) x10*3/uL Absolute Nucleated RBC 0.000 (0.0-0.012) X10*3/uL Nucleated RBC % (auto) 0.0 (0.0-0.2) /100WBC Sodium 143 (135-145) mmol/L Potassium 4.8 (3.3-5.1) mmol/L Chloride 111 H (96-108) mmol/L Carbon Dioxide 25 (22-29) mmol/L Anion Gap 12 (12-20) BUN 11 (9-16) mg/dL Creatinine 0.73 (0.5-1.4) mg/dL Estim Creat Clear Calc 96.7 Estimated GFR > 60 Random Glucose 94 (60-115) mg/dL Calcium 9.2 (8.4-10.2) mg/dL Magnesium 1.9 (1.6-2.6) mg/dL Total Bilirubin 0.8 (0.0-1.0) mg/dL AST 12 (5-31) U/L ALT 10 (0-31) U/L Alkaline Phosphatase 50 (39-117) U/L Total Protein 6.1 L (6.5-8.0) g/dL Albumin 3.9 (3.5-5.0) g/dL Lipase 17 (8-78) U/L Urine Color Urine Appearance Urine pH (5.0-9.0) Ur Specific [place] (1.005-1.025) Urine Protein (Neg-Trace) mg/dL Urine Glucose (UA) (Negative) mg/dL Urine Ketones (Negative) mg/dL Urine Blood (Negative) Urine Nitrite (Negative) Ur Leukocyte Esterase (Negative) Urine RBC (0-2) /HPF Urine WBC (0-5) /HPF Ur Squamous Epith Cells (0-2) /HPF Urine Bacteria (None Seen) Hyaline Casts (0-2) /LPF Urine Test (NEGATIVE) COVID-19 ([facility]AN[facility]YAM) (Negative) COVID-19 Clin Com <LIZ Bhakta - Last Filed: 03/24/23 19:56> Lab Results 03/24/23 03/24/23 03/24/23 Range/Units 17:24 17:24 17:24 WBC (4.8-10.8) X10*3/uL RBC (4.20-5.50) X10*6/uL Hgb (12.0-16.0) g/dl Hct (37.0-47.0) % MCV (80.0-98.0) fL MCH (27.0-33.0) pg MCHC (31.0-35.0) g/dl RDW (11.0-16.0) % Plt Count (160-400) X10*3/uL MPV (9.4-12.3) fL Immature Gran % (Auto) (0.0-0.4) % Neut % (Auto) (45-73) % Lymph % (Auto) (20-40) % [place] % (Auto) (2-11) % Eos % (Auto) (0-4) % Baso % (Auto) (0-2) % Lymph # (Auto) (1.2-4.9) X10*3/uL [place] # (Auto) (0.1-1.2) X10*3/uL Eos # (Auto) (0.0-0.4) X10*3/uL Baso # (Auto) (0.0-0.2) X10*3/uL Abs Immat Gran (auto) (0.00-0.03) X10*3/uL Absolute Neuts (auto) (2.0-8.3) x10*3/uL Absolute Nucleated RBC (0.0-0.012) X10*3/uL Nucleated RBC % (auto) (0.0-0.2) /100WBC Sodium (135-145) mmol/L Potassium (3.3-5.1) mmol/L Chloride (96-108) mmol/L Carbon Dioxide (22-29) mmol/L Anion Gap (12-20) BUN (9-16) mg/dL Creatinine (0.5-1.4) mg/dL Estim Creat Clear Calc Estimated GFR Random Glucose (60-115) mg/dL Calcium (8.4-10.2) mg/dL Magnesium (1.6-2.6) mg/dL Total Bilirubin (0.0-1.0) mg/dL AST (5-31) U/L ALT (0-31) U/L Alkaline Phosphatase (39-117) U/L Total Protein (6.5-8.0) g/dL Albumin (3.5-5.0) g/dL Lipase (8-78) U/L Urine Color Yellow Urine Appearance Turbid Urine pH 7.5 (5.0-9.0) Ur Specific [place] 1.025 (1.005-1.025) Urine Protein Negative (Neg-Trace) mg/dL Urine Glucose (UA) Negative (Negative) mg/dL Urine Ketones Trace (Negative) mg/dL Urine Blood Trace H (Negative) Urine Nitrite Negative (Negative) Ur Leukocyte Esterase Negative (Negative) Urine RBC 6-10 H (0-2) /HPF Urine WBC 0-5 (0-5) /HPF Ur Squamous Epith Cells 0-2 (0-2) /HPF Urine Bacteria None Seen (None Seen) Hyaline Casts 0-2 (0-2) /LPF Urine Test NEGATIVE (NEGATIVE) COVID-19 ([facility]) Negative (Negative) COVID-19 Clin Com See Note 03/24/23 03/24/23 03/24/23 Range/Units 17:27 17:27 17:27 WBC 9.4 (4.8-10.8) X10*3/uL RBC 4.13 L (4.20-5.50) X10*6/uL Hgb 12.8 (12.0-16.0) g/dl Hct 38.0 (37.0-47.0) % MCV 92.0 (80.0-98.0) fL MCH 31.0 (27.0-33.0) pg MCHC 33.7 (31.0-35.0) g/dl RDW 13.0 (11.0-16.0) % Plt Count 183 (160-400) X10*3/uL MPV 11.7 (9.4-12.3) fL Immature Gran % (Auto) 0.3 (0.0-0.4) % Neut % (Auto) 56.9 (45-73) % Lymph % (Auto) 34.0 (20-40) % [place] % (Auto) 6.4 (2-11) % Eos % (Auto) 1.9 (0-4) % Baso % (Auto) 0.5 (0-2) % Lymph # (Auto) 3.2 (1.2-4.9) X10*3/uL [place] # (Auto) 0.6 (0.1-1.2) X10*3/uL Eos # (Auto) 0.2 (0.0-0.4) X10*3/uL Baso # (Auto) 0.1 (0.0-0.2) X10*3/uL Abs Immat Gran (auto) 0.03 (0.00-0.03) X10*3/uL Absolute Neuts (auto) 5.3 (2.0-8.3) x10*3/uL Absolute Nucleated RBC 0.000 (0.0-0.012) X10*3/uL Nucleated RBC % (auto) 0.0 (0.0-0.2) /100WBC Sodium 143 (135-145) mmol/L Potassium 4.8 (3.3-5.1) mmol/L Chloride 111 H (96-108) mmol/L Carbon Dioxide 25 (22-29) mmol/L Anion Gap 12 (12-20) BUN 11 (9-16) mg/dL Creatinine 0.73 (0.5-1.4) mg/dL Estim Creat Clear Calc 96.7 Estimated GFR > 60 Random Glucose 94 (60-115) mg/dL Calcium 9.2 (8.4-10.2) mg/dL Magnesium 1.9 (1.6-2.6) mg/dL Total Bilirubin 0.8 (0.0-1.0) mg/dL AST 12 (5-31) U/L ALT 10 (0-31) U/L Alkaline Phosphatase 50 (39-117) U/L Total Protein 6.1 L (6.5-8.0) g/dL Albumin 3.9 (3.5-5.0) g/dL Lipase 17 (8-78) U/L Urine Color Urine Appearance Urine pH (5.0-9.0) Ur Specific [place] (1.005-1.025) Urine Protein (Neg-Trace) mg/dL Urine Glucose (UA) (Negative) mg/dL Urine Ketones (Negative) mg/dL Urine Blood (Negative) Urine Nitrite (Negative) Ur Leukocyte Esterase (Negative) Urine RBC (0-2) /HPF Urine WBC (0-5) /HPF Ur Squamous Epith Cells (0-2) /HPF Urine Bacteria (None Seen) Hyaline Casts (0-2) /LPF Urine Test (NEGATIVE) COVID-19 ([facility]) (Negative) COVID-19 Clin Com <LIZ Schilling - Last Filed: 03/24/23 18:21> Radiology Impression Discussion of test interpretation with radiology: I have reviewed the radiologist's reading. <LIZ Schilling - Last Filed: 03/24/23 18:21> External Record Review External record reviewed: Inpatient record, Office record, Outpatient record, Prior outpatient labs, Prior outpatient radiology, Primary care record and Outside ED record <LIZ Schilling Last Filed: 03/24/23 18:21> Tests considered The following testing was considered but not selected: As above <LIZ Schilling - Last Filed: 03/24/23 18:21> Discharge Plan Discharge Clinical Impression: Left flank pain <LIZ Bhakta Last Filed: 03/24/23 19:56> Patient Disposition: Home, Self-Care <LIZ Bahkta Last Filed: 03/24/23 19:56> Instructions: Flank Pain (ED) <LIZ Bhakta Last Filed: 03/24/23 19:56> Additional Instructions: Your blood work is reassuring. Her urine does not look infected today, you do have some blood in it however you are on your period Continue taking previously prescribed antibiotic Naproxen as an anti-inflammatory/pain medication, take with food. Lidoderm patches or numbing patches, apply to painful areas Follow-up with her doctor If symptoms persist or worsen return to the ED ?CT/CT abdomen pelvis wo IV con IMPRESSION: ? *? There is a 2 mm calcific density along the course of the left ureter in the pelvis concerning for possible tiny nonobstructing kidney stone. No significant hydronephrosis. ? *? Assessment for possible pyelonephritis is limited due to lack of contrast however the renal cortices are homogeneous on noncontrast CT. If there is high index suspicion for possible pyelonephritis would recommend correlation with follow-up contrast enhanced cross-sectional study CT scan or MRI. ? *? Status post cholecystectomy. ? <LIZ Bhakta - Last Filed: 03/24/23 19:56> Prescriptions: New lidocaine [Lidoderm] 5 % adhesive patch,medicated 1 patch topical DAILY MDD remove after 12 hours PRN (Reason: pain) Qty: 30 0RF Rx Instructions: leave on most painful area for up to 12 hrs naproxen 500 mg tablet 500 mg PO BID PRN (Reason: pain) 10 Days Qty: 20 0RF prednisone 20 mg tablet 40 mg PO DAILY 5 Days Qty: 10 0RF No Action lorazepam [Ativan] 0.5 mg tablet 0.5 mg PO TID PRN (Reason: anxiety) Qty: 10 0RF Rx Instructions: patient may ask for partial fill nitrofurantoin monohyd/m-cryst [Macrobid] 100 mg capsule 100 mg PO Q12H 7 Days Qty: 14 0RF Rx Instructions: must administer with a meal/food lorazepam [Ativan] 1 mg tablet 1 mg PO Q8H PRN (Reason: anxiety) Qty: 14 0RF doxycycline monohydrate 100 mg capsule 100 mg PO BID 21 Days Qty: 42 0RF Rx Instructions: Positive lyme lorazepam [Ativan] 1 mg tablet 1 mg PO BID PRN (Reason: anxiety) Qty: 10 0RF lorazepam [Ativan] 1 mg tablet 1 mg PO BID PRN (Reason: anxiety) Qty: 10 0RF ondansetron 4 mg tablet,disintegrating 4 mg PO Q6H PRN (Reason: nausea and vomiting) Qty: 14 0RF amoxicillin-pot clavulanate 875-125 mg tablet 1 tab PO Q12H 10 Days Qty: 20 0RF oxycodone 5 mg capsule 5 mg PO Q8H PRN (Reason: pain) 3 Days Qty: 9 0RF Rx Instructions: Partial Fill upon patient request. promethazine 25 mg tablet 25 mg PO Q6H PRN (Reason: nausea and vomiting) Qty: 20 0RF ondansetron 4 mg tablet,disintegrating 4 mg PO Q8H PRN (Reason: nausea and vomiting) Qty: 10 0RF metoprolol tartrate 25 mg tablet 12.5 mg PO BID Qty: 30 0RF ondansetron 4 mg tablet,disintegrating 4 mg PO Q8H 3 Days Qty: 9 0RF cephalexin 500 mg capsule 500 mg PO Q6H 7 Days Qty: 28 0RF <LIZ Bhakta - Last Filed: 03/24/23 19:56> Referrals: [facility] [Provider Group] (as needed) Physician,Unknown J [Primary Care Provider] - <LIZ Bhakta - Last Filed: 03/24/23 19:56> Stand Alone Forms: Work/School Release <LIZ Bhakta - Last Filed: 03/24/23 19:56>
[2023-03-24 16:00] VITALS: BP 120/80; PULSE 81; RESP 16; TEMP 36.6; O2SAT 99
--- NOTE | 2023-03-24 17:30 | PC.NURSE ---
IV established, labs, urine and Covid obtained. Pt reporting 3/10 pain. Pt aware of plan for CT. Continue to monitor.
[2023-03-24 17:37] LABS: MANUAL DIFF FLAG NO
[2023-03-24 17:40] LABS: Basophils Absolute Auto 0.1 X10*3/uL (0.0-0.2); Basophils Percent Auto 0.5 % (0-2); Eosinophils Absolute Auto 0.2 X10*3/uL (0.0-0.4); Eosinophils Percent Auto 1.9 % (0-4); Hemoglobin 12.8 g/dl (12.0-16.0); Imm Gran Abs Auto 0.03 X10*3/uL (0.00-0.03); Imm Gran Pct Auto 0.3 % (0.0-0.4); Lymphocytes Absolute Auto 3.2 X10*3/uL (1.2-4.9); Mean Corpuscular HGB Conc 33.7 g/dl (31.0-35.0); Mean Platelet Volume 11.7 fL (9.4-12.3); Monocytes Absolute Auto 0.6 X10*3/uL (0.1-1.2); Monocytes Percent Auto 6.4 % (2-11); Neutrophils Absolute Auto 5.3 x10*3/uL (2.0-8.3); Neutrophils Percent Auto 56.9 % (45-73); Platelet Count 183 X10*3/uL (160-400); Red Blood Count 4.13 X10*6/uL (4.20-5.50); White Blood Count 9.4 X10*3/uL (4.8-10.8)
[2023-03-24 17:41] LABS: Appearance Urine Turbid; Color Urine Yellow; Glucose Urine UA Negative (Negative); Leukocyte Esterase Urine Negative (Negative); Nitrite Urine Negative (Negative); PH 7.5 (5.0-9.0); Specific Gravity - Urine 1.025 (1.005-1.025); UMIC TRIGGER UACC YES; Urine Blood Trace (Negative); Urine Ketones Trace mg/dL (Negative); Urine Protein Negative (Neg-Trace)
[2023-03-24 17:43] LABS: UPreg QC Valid YES; Urine Pregnancy NEGATIVE (NEGATIVE)
[2023-03-24 17:47] LABS: Bacteria Urine None Seen (None Seen); Hyaline Casts Urine 0-2 /LPF (0-2); Squamous Epithelial Cell Urine 0-2 /HPF (0-2); WBC Urine 0-5 /HPF (0-5)
[2023-03-24 17:55] LABS: Lipase 17 U/L (8-78); Magnesium 1.9 mg/dL (1.6-2.6)
[2023-03-24 17:56] LABS: Alanine Aminotransferase 10 U/L (0-31); Albumin Level 3.9 g/dL (3.5-5.0); Alkaline Phosphatase 50 U/L (39-117); Anion Gap 12 (12-20); Aspartate Amino Transferase 12 U/L (5-31); Bilirubin Total 0.8 mg/dL (0.0-1.0); Blood Urea Nitrogen 11 mg/dL (9-16); Calcium 9.2 mg/dL (8.4-10.2); Carbon Dioxide 25 mmol/L (22-29); Chloride 111 mmol/L (96-108); Creatinine Clr Calc Pharmacy 96.7; Estimated Glomerular Filt Rate > 60; Glucose Random 94 mg/dL (60-115); Potassium 4.8 mmol/L (3.3-5.1); Sodium 143 mmol/L (135-145); Total Protein 6.1 g/dL (6.5-8.0)
[2023-03-24 18:09] LABS: COVID-19 Test Negative (Negative); IDNOW Serial# BCCEAD1C
[2023-03-24 20:03] VITALS: BP 119/72; PULSE 77; RESP 16; TEMP 36.7; O2SAT 98
== END 2023-03-24 21:06 | disposition home or self-care (01) ==
PROVIDERS: Physician Assistant; Emergency Provider Emergency Medicine Emergency Medical Services
DX: R10.9 Unspecified abdominal pain (principal); Z20.822 Contact with and (suspected) exposure to COVID-19; F17.210 Nicotine dependence, cigarettes, uncomplicated; Z79.899 Other long term (current) drug therapy
CPT/HCPCS: 36415; 74176; 80053; 81001; 81025; 83690; 83735; 85025; 87635; 99284

== ENCOUNTER 2023-04-05 15:45 | Emergency (ER) | payer OTHER, SELFPAY ==
--- NOTE | ~2023-04-05 | CT_ITS ---
EXAMINATION: CT ABDOMEN AND PELVIS WITHOUT CONTRAST CLINICAL INFORMATION: worsening L flank pain. COMPARISON: No pertinent prior studies are available for comparison. TECHNIQUE: Multidetector volumetric imaging was performed from the superior aspect of the liver through the pubic symphysis without contrast per renal stone protocol. Sagittal and coronal reformatted images were obtained on the technologist workstation. This CT examination was performed using dose optimization techniques as appropriate, variously including the following: *Automated exposure control *Adjustment of mA and/or kV according to patient size (this includes techniques or standardized protocols for targeted exams where dose is matched to indication/reason for exam; i.e. extremities or head) *Use of iterative reconstruction technique DLP: 5:15 mGy-cm. FINDINGS: LUNG BASES: Minimal dependent atelectasis LIVER, GALLBLADDER, BILIARY TREE: The non-contrast liver is normal in size, shape, and attenuation. No focal hepatic lesion or biliary ductal dilatation is present. The gallbladder is surgically absent. PANCREAS: Unremarkable. SPLEEN: Unremarkable. ADRENAL GLANDS: Unremarkable. KIDNEYS AND URETERS: The kidneys are normal in size, shape, and attenuation. No hydronephrosis, hydroureter, or calculi seen. No perinephric stranding. BLADDER: Decompressed but otherwise unremarkable GASTROINTESTINAL TRACT: The small and large bowel are unremarkable. The appendix is unremarkable. ABDOMINAL WALL: No significant hernia is appreciated. LYMPHOVASCULAR STRUCTURES: No lymphadenopathy. The aorta is unremarkable. A few tiny phleboliths in the pelvis. PELVIC VISCERA: Anteroverted uterus.. There is a focally dense 0.9 cm possible Bartholin's duct cyst again seen along the right labia. OSSEUS STRUCTURES: Unremarkable. CT/CT abdomen pelvis wo IV con IMPRESSION: No renal or ureteric calculi seen. No obstructive changes..
--- NOTE | 2023-04-05 15:49 | ED.BACK ---
HPI - Back Pain/Injury General Chief Complaint: Back Pain/Injury <Regi Hay NP - Last Filed: 04/05/23 15:52> Stated Complaint: kidney stone pain? back pain <Regi Hay NP - Last Filed: 04/05/23 15:52> Time Seen by Provider: 04/05/23 16:56 <Regi Hay NP - Last Filed: 04/05/23 15:52> Source: patient <Angelina Doshi MD - Last Filed: 04/05/23 19:04> Mode of arrival: ambulatory <Angelina Doshi MD - Last Filed: 04/05/23 19:04> Limitations: no limitations <Angelina Doshi MD - Last Filed: 04/05/23 19:04> History of Present Illness HPI Narrative: Patient comes to the emergency room complaining of left flank pain that has been present for almost 2 weeks. Patient was seen here, diagnosed with ureterolithiasis. Patient denies any hematuria or dysuria, no fever chills. <Angelina Doshi MD - Last Filed: 04/05/23 19:04> Related Data Home Medications: Previous Rx's Medication Instructions Recorded lorazepam 0.5 mg tablet (Ativan) 0.5 mg PO TID PRN anxiety #10 tabs 03/19/21 nitrofurantoin 100 mg PO Q12H 7 days #14 caps 01/15/22 monohydrate/macrocrystals 100 mg capsule (Macrobid) lorazepam 1 mg tablet (Ativan) 1 mg PO Q8H PRN anxiety #14 tabs 04/06/22 doxycycline monohydrate 100 mg 100 mg PO BID 21 days #42 caps 04/12/22 capsule amoxicillin 875 mg-potassium 1 tab PO Q12H 10 days #20 tabs 05/31/22 clavulanate 125 mg tablet oxycodone 5 mg capsule 5 mg PO Q8H PRN pain 3 days #9 caps 05/31/22 lorazepam 1 mg tablet (Ativan) 1 mg PO BID PRN anxiety #10 tabs 07/25/22 lorazepam 1 mg tablet (Ativan) 1 mg PO BID PRN anxiety #10 tabs 07/25/22 promethazine 25 mg tablet 25 mg PO Q6H PRN nausea and 07/25/22 vomiting #20 tabs ondansetron 4 mg disintegrating 4 mg PO Q6H PRN nausea and 08/01/22 tablet vomiting #14 tabs ondansetron 4 mg disintegrating 4 mg PO Q8H PRN nausea and 10/08/22 tablet vomiting #10 tabs metoprolol tartrate 25 mg tablet 12.5 mg PO BID #30 tabs 10/22/22 ondansetron 4 mg disintegrating 4 mg PO Q8H 3 days #9 tabs 02/01/23 tablet cephalexin 500 mg capsule 500 mg PO Q6H 7 days #28 caps 03/20/23 lidocaine 5 % topical patch 1 patch topical DAILY PRN pain #30 03/24/23 (Lidoderm) ea naproxen 500 mg tablet 500 mg PO BID PRN pain 10 days #20 03/24/23 tabs prednisone 20 mg tablet 40 mg PO DAILY 5 days #10 tabs 03/24/23 <Regi Hay NP - Last Filed: 04/05/23 15:52> Allergies/Adverse Reactions: Allergies Allergy/AdvReac Type Severity Reaction Status Date / Time No Known Allergies Allergy Unknown NOT Verified 04/05/23 15:55 APPLICABLE <Regi Hay NP - Last Filed: 04/05/23 15:52> Review of Systems Review of Systems: Constitutional : No Weight loss, No Fever, No Chills, No Night Sweats, No Fatigue, No Malaise ENT/Mouth : No Hearing loss, No Ear Pain, No Nasal Congestion, No Sinus Pain, No Hoarseness, No sore throat, No Rhinorrhea, No Swallowing Difficulty Eyes: No Eye Pain, No Swelling, No Redness, No Foreign Body, No Discharge, No Vision Changes Cardiovascular : No Chest Pain, No SOB, No Dyspnea on Exertion, No Orthopnea, No Edema, No Palpitations Respiratory : No Cough, No Sputum, No Wheezing, No Smoke Exposure, No Dyspnea Gastrointestinal : No Nausea, No Vomiting, No Diarrhea, No Constipation, No abdominal Pain, No Hematochezia, No Melena Genitourinary : no irregular bleeding, No Dysuria, No Urinary Frequency, No Hematuria, No Urinary Incontinence, No Urgency, complaining of left Flank Pain, No Urinary Flow Changes, No Hesitancy Musculoskeletal : No joint pain, No Myalgias, No Joint Swelling Skin : No Skin Lesions, No rash Neuro : No Weakness, No Numbness, No Paresthesias, No Loss of Consciousness, No Dizziness, No Headache Psych : No Anxiety/Panic, No Depression, No SI/HI/AH/VH, No Social Issues, Heme/Lymph: No Bruising, No Bleeding,No Lymphadenopathy Endocrine : No Polyuria, No Polydipsia, No Temperature Intolerance <Angelina Doshi MD - Last Filed: 04/05/23 19:04> FOR[facility]LY [facility], [facility] Past Medical History Medical History: Medical History Anxiety delivery delivered Cholecystectomy planned Heart palpitations Lyme disease <Regi Hay NP - Last Filed: 04/05/23 15:52> Social History Social History: Social History Alcohol intake: never Patient Tobacco Use Status: Current everyday Tobacco user Advance Directives: No Advance Directives Information Provided: No <Regi Hay NP - Last Filed: 04/05/23 15:52> Physical Exam Vital Signs: Vital Signs: Last Vital Signs Temp 98.1 F 04/05/23 18:37 Pulse 75 04/05/23 18:37 Resp 18 04/05/23 18:37 BP 114/66 04/05/23 18:37 Pulse Ox 99 04/05/23 18:37 O2 Del Method Room Air 04/05/23 18:37 BMI result Body Mass Index 25.3 <Regi Hay NP - Last Filed: 04/05/23 15:52> Vital Signs: Last Vital Signs Temp 98.1 F 04/05/23 18:37 Pulse 75 04/05/23 18:37 Resp 18 04/05/23 18:37 BP 114/66 04/05/23 18:37 Pulse Ox 99 04/05/23 18:37 O2 Del Method Room Air 04/05/23 18:37 BMI result Body Mass Index 25.3 <Angelina Doshi MD - Last Filed: 04/05/23 19:04> Const: Other: Appearance: Alert. Oriented X3. No acute distress. Well-appearing Eyes: Pupils equal, round and reactive to light. ENT: Pharynx normal. Neck: Normal inspection. Neck supple. No lymph nodes noted. No crepitus CVS: Normal heart rate and rhythm. Pulses normal. Normal S1 and S2 Respiratory: No respiratory distress. Breath sounds normal. No Wheezing. No rales Abdomen: Soft , mild left lower quadrant pain, no guarding, no rebound, no CVA tenderness Skin: Skin warm and dry. Normal skin color. Normal skin turgor. Extremities: No lower extremity edema. No Lacerations. No Rash Neuro: Oriented X 3. No motor deficit. No sensory deficit. Moving all extremities. No slurred speech. CN 2 through 12 grossly intact Psych: calm, cooperative, normal affect <Angelina Doshi MD - Last Filed: 04/05/23 19:04> Course Course Course Narrative: This is a rapid medical exam. deferred additional HPI, ROS, PE to primary provider. 37-year-old female with a past medical history of anxiety, cholecystectomy, Lyme disease seen here 03/24 and diagnosed with left kidney stones (2mm nonobstructing) now here with continued left flank pain/radiation to LLQ with urinary frequency. No fever, vomiting. Will obtain labs, UA Vital stable <Regi Hay NP - Last Filed: 04/05/23 15:52> Medical Decision Making Medical Decision Making [facility] Narrative: -patient's labs are unremarkable. White blood cell count within normal limits, no UTI, no blood in the urine. -my interpretation of CT scan of the abdomen pelvis: No kidney stones were visualized. -CT scan of the abdomen/ pelvis: No acute findings, no ureterolithiasis. -patient's source of pain likely renal colic <Angelina Doshi MD - Last Filed: 04/05/23 19:04> Differential Diagnosis Differential Diagnoses: The differential diagnosis associated with the presentation includes (Ureterolithiasis, renal colic) <Angelina Doshi MD - Last Filed: 04/05/23 19:04> Lab Data [facility] Lab Attestation statement: I reviewed the patient's lab results. <Angelina Doshi MD - Last Filed: 04/05/23 19:04> Result Diagrams: 04/05/23 16:10 04/05/23 16:10 <Regi Hay NP - Last Filed: 04/05/23 15:52> Labs: Lab Results 04/05/23 04/05/23 04/05/23 Range/Units 16:10 16:10 16:10 WBC 10.0 (4.8-10.8) X10*3/uL RBC 4.32 (4.20-5.50) X10*6/uL Hgb 13.5 (12.0-16.0) g/dl Hct 39.8 (37.0-47.0) % MCV 92.1 (80.0-98.0) fL MCH 31.3 (27.0-33.0) pg MCHC 33.9 (31.0-35.0) g/dl RDW 13.1 (11.0-16.0) % Plt Count 226 (160-400) X10*3/uL MPV 11.4 (9.4-12.3) fL Immature Gran % (Auto) 0.2 (0.0-0.4) % Neut % (Auto) 57.5 (45-73) % Lymph % (Auto) 32.6 (20-40) % [place] % (Auto) 7.2 (2-11) % Eos % (Auto) 1.9 (0-4) % Baso % (Auto) 0.6 (0-2) % Lymph # (Auto) 3.3 (1.2-4.9) X10*3/uL [place] # (Auto) 0.7 (0.1-1.2) X10*3/uL Eos # (Auto) 0.2 (0.0-0.4) X10*3/uL Baso # (Auto) 0.1 (0.0-0.2) X10*3/uL Abs Immat Gran (auto) 0.02 (0.00-0.03) X10*3/uL Absolute Neuts (auto) 5.8 (2.0-8.3) x10*3/uL Absolute Nucleated RBC 0.000 (0.0-0.012) X10*3/uL Nucleated RBC % (auto) 0.0 (0.0-0.2) /100WBC Sodium 141 (135-145) mmol/L Potassium 5.3 H (3.3-5.1) mmol/L Chloride 108 (96-108) mmol/L Carbon Dioxide 27 (22-29) mmol/L Anion Gap 11 L (12-20) BUN 10 (9-16) mg/dL Creatinine 0.79 (0.5-1.4) mg/dL Estim Creat Clear Calc 97.0 Estimated GFR > 60 Random Glucose 90 (60-115) mg/dL Calcium 9.5 (8.4-10.2) mg/dL Total Bilirubin 0.9 (0.0-1.0) mg/dL Direct Bilirubin 0.2 (0.0-0.5) mg/dL AST 15 (5-31) U/L ALT 11 (0-31) U/L Alkaline Phosphatase 53 (39-117) U/L Total Protein 6.5 (6.5-8.0) g/dL Albumin 4.0 (3.5-5.0) g/dL Lipase 15 (8-78) U/L Urine Color Yellow Urine Appearance Cloudy Urine pH 6.5 (5.0-9.0) Ur Specific [place] >= 1.030 H (1.005-1.025) Urine Protein Negative (Neg-Trace) mg/dL Urine Glucose (UA) Negative (Negative) mg/dL Urine Ketones Trace (Negative) mg/dL Urine Blood Negative (Negative) Urine Nitrite Negative (Negative) Ur Leukocyte Esterase Negative (Negative) Urine Test (NEGATIVE) 04/05/23 Range/Units 16:10 WBC (4.8-10.8) X10*3/uL RBC (4.20-5.50) X10*6/uL Hgb (12.0-16.0) g/dl Hct (37.0-47.0) % MCV (80.0-98.0) fL MCH (27.0-33.0) pg MCHC (31.0-35.0) g/dl RDW (11.0-16.0) % Plt Count (160-400) X10*3/uL MPV (9.4-12.3) fL Immature Gran % (Auto) (0.0-0.4) % Neut % (Auto) (45-73) % Lymph % (Auto) (20-40) % [place] % (Auto) (2-11) % Eos % (Auto) (0-4) % Baso % (Auto) (0-2) % Lymph # (Auto) (1.2-4.9) X10*3/uL [place] # (Auto) (0.1-1.2) X10*3/uL Eos # (Auto) (0.0-0.4) X10*3/uL Baso # (Auto) (0.0-0.2) X10*3/uL Abs Immat Gran (auto) (0.00-0.03) X10*3/uL Absolute Neuts (auto) (2.0-8.3) x10*3/uL Absolute Nucleated RBC (0.0-0.012) X10*3/uL Nucleated RBC % (auto) (0.0-0.2) /100WBC Sodium (135-145) mmol/L Potassium (3.3-5.1) mmol/L Chloride (96-108) mmol/L Carbon Dioxide (22-29) mmol/L Anion Gap (12-20) BUN (9-16) mg/dL Creatinine (0.5-1.4) mg/dL Estim Creat Clear Calc Estimated GFR Random Glucose (60-115) mg/dL Calcium (8.4-10.2) mg/dL Total Bilirubin (0.0-1.0) mg/dL Direct Bilirubin (0.0-0.5) mg/dL AST (5-31) U/L ALT (0-31) U/L Alkaline Phosphatase (39-117) U/L Total Protein (6.5-8.0) g/dL Albumin (3.5-5.0) g/dL Lipase (8-78) U/L Urine Color Urine Appearance Urine pH (5.0-9.0) Ur Specific [place] (1.005-1.025) Urine Protein (Neg-Trace) mg/dL Urine Glucose (UA) (Negative) mg/dL Urine Ketones (Negative) mg/dL Urine Blood (Negative) Urine Nitrite (Negative) Ur Leukocyte Esterase (Negative) Urine Test NEGATIVE (NEGATIVE) <Regi Hay, CARE MGR - Last Filed: 04/05/23 15:52> Lab Results 04/05/23 04/05/23 04/05/23 Range/Units 16:10 16:10 16:10 WBC 10.0 (4.8-10.8) X10*3/uL RBC 4.32 (4.20-5.50) X10*6/uL Hgb 13.5 (12.0-16.0) g/dl Hct 39.8 (37.0-47.0) % MCV 92.1 (80.0-98.0) fL MCH 31.3 (27.0-33.0) pg MCHC 33.9 (31.0-35.0) g/dl RDW 13.1 (11.0-16.0) % Plt Count 226 (160-400) X10*3/uL MPV 11.4 (9.4-12.3) fL Immature Gran % (Auto) 0.2 (0.0-0.4) % Neut % (Auto) 57.5 (45-73) % Lymph % (Auto) 32.6 (20-40) % [place] % (Auto) 7.2 (2-11) % Eos % (Auto) 1.9 (0-4) % Baso % (Auto) 0.6 (0-2) % Lymph # (Auto) 3.3 (1.2-4.9) X10*3/uL [place] # (Auto) 0.7 (0.1-1.2) X10*3/uL Eos # (Auto) 0.2 (0.0-0.4) X10*3/uL Baso # (Auto) 0.1 (0.0-0.2) X10*3/uL Abs Immat Gran (auto) 0.02 (0.00-0.03) X10*3/uL Absolute Neuts (auto) 5.8 (2.0-8.3) x10*3/uL Absolute Nucleated RBC 0.000 (0.0-0.012) X10*3/uL Nucleated RBC % (auto) 0.0 (0.0-0.2) /100WBC Sodium 141 (135-145) mmol/L Potassium 5.3 H (3.3-5.1) mmol/L Chloride 108 (96-108) mmol/L Carbon Dioxide 27 (22-29) mmol/L Anion Gap 11 L (12-20) BUN 10 (9-16) mg/dL Creatinine 0.79 (0.5-1.4) mg/dL Estim Creat Clear Calc 97.0 Estimated GFR > 60 Random Glucose 90 (60-115) mg/dL Calcium 9.5 (8.4-10.2) mg/dL Total Bilirubin 0.9 (0.0-1.0) mg/dL Direct Bilirubin 0.2 (0.0-0.5) mg/dL AST 15 (5-31) U/L ALT 11 (0-31) U/L Alkaline Phosphatase 53 (39-117) U/L Total Protein 6.5 (6.5-8.0) g/dL Albumin 4.0 (3.5-5.0) g/dL Lipase 15 (8-78) U/L Urine Color Yellow Urine Appearance Cloudy Urine pH 6.5 (5.0-9.0) Ur Specific [place] >= 1.030 H (1.005-1.025) Urine Protein Negative (Neg-Trace) mg/dL Urine Glucose (UA) Negative (Negative) mg/dL Urine Ketones Trace (Negative) mg/dL Urine Blood Negative (Negative) Urine Nitrite Negative (Negative) Ur Leukocyte Esterase Negative (Negative) Urine Test (NEGATIVE) 04/05/23 Range/Units 16:10 WBC (4.8-10.8) X10*3/uL RBC (4.20-5.50) X10*6/uL Hgb (12.0-16.0) g/dl Hct (37.0-47.0) % MCV (80.0-98.0) fL MCH (27.0-33.0) pg MCHC (31.0-35.0) g/dl RDW (11.0-16.0) % Plt Count (160-400) X10*3/uL MPV (9.4-12.3) fL Immature Gran % (Auto) (0.0-0.4) % Neut % (Auto) (45-73) % Lymph % (Auto) (20-40) % [place] % (Auto) (2-11) % Eos % (Auto) (0-4) % Baso % (Auto) (0-2) % Lymph # (Auto) (1.2-4.9) X10*3/uL [place] # (Auto) (0.1-1.2) X10*3/uL Eos # (Auto) (0.0-0.4) X10*3/uL Baso # (Auto) (0.0-0.2) X10*3/uL Abs Immat Gran (auto) (0.00-0.03) X10*3/uL Absolute Neuts (auto) (2.0-8.3) x10*3/uL Absolute Nucleated RBC (0.0-0.012) X10*3/uL Nucleated RBC % (auto) (0.0-0.2) /100WBC Sodium (135-145) mmol/L Potassium (3.3-5.1) mmol/L Chloride (96-108) mmol/L Carbon Dioxide (22-29) mmol/L Anion Gap (12-20) BUN (9-16) mg/dL Creatinine (0.5-1.4) mg/dL Estim Creat Clear Calc Estimated GFR Random Glucose (60-115) mg/dL Calcium (8.4-10.2) mg/dL Total Bilirubin (0.0-1.0) mg/dL Direct Bilirubin (0.0-0.5) mg/dL AST (5-31) U/L ALT (0-31) U/L Alkaline Phosphatase (39-117) U/L Total Protein (6.5-8.0) g/dL Albumin (3.5-5.0) g/dL Lipase (8-78) U/L Urine Color Urine Appearance Urine pH (5.0-9.0) Ur Specific [place] (1.005-1.025) Urine Protein (Neg-Trace) mg/dL Urine Glucose (UA) (Negative) mg/dL Urine Ketones (Negative) mg/dL Urine Blood (Negative) Urine Nitrite (Negative) Ur Leukocyte Esterase (Negative) Urine Test NEGATIVE (NEGATIVE) <Angelina Doshi MD - Last Filed: 04/05/23 19:04> Radiology Impression Discussion of test interpretation with radiology: I have reviewed the radiologist's reading. <Angelina Doshi MD - Last Filed: 04/05/23 19:04> Radiologist Impression: INDINGS: LUNG BASES: Minimal dependent atelectasis LIVER, GALLBLADDER, BILIARY TREE: The non-contrast liver is normal in size, shape, and attenuation. No focal hepatic lesion or biliary ductal dilatation is present.? The gallbladder is surgically absent. PANCREAS: Unremarkable. SPLEEN: Unremarkable. ADRENAL GLANDS: Unremarkable. KIDNEYS AND URETERS: The kidneys are normal in size, shape, and attenuation. No hydronephrosis, hydroureter, or calculi seen. No perinephric stranding. BLADDER: Decompressed but otherwise unremarkable GASTROINTESTINAL TRACT: The small and large bowel are unremarkable. The appendix is unremarkable. ABDOMINAL WALL: No significant hernia is appreciated. LYMPHOVASCULAR STRUCTURES: No lymphadenopathy.? The aorta is unremarkable. A few tiny phleboliths in the pelvis. PELVIC VISCERA: Anteroverted uterus.. There is a focally dense 0.9 cm possible Bartholin's duct cyst again seen along the right labia. OSSEUS STRUCTURES: Unremarkable. CT/CT abdomen pelvis wo IV con IMPRESSION: No renal or ureteric calculi seen. No obstructive changes.. <Angelina Doshi MD - Last Filed: 04/05/23 19:04> Discharge Plan Discharge Clinical Impression: Chronic flank pain <Regi Hay NP - Last Filed: 04/05/23 15:52> Patient Disposition: Home, Self-Care <Regi Hay NP - Last Filed: 04/05/23 15:52> Instructions: Flank Pain (ED) <Regi Hay NP - Last Filed: 04/05/23 15:52> Additional Instructions: Please follow-up with your primary care physician tomorrow. If you have any worsening or new symptoms, please return to the emergency room or call 911 <Regi Hay NP - Last Filed: 04/05/23 15:52> Prescriptions: No Action lorazepam [Ativan] 0.5 mg tablet 0.5 mg PO TID PRN (Reason: anxiety) Qty: 10 0RF Rx Instructions: patient may ask for partial fill nitrofurantoin monohyd/m-cryst [Macrobid] 100 mg capsule 100 mg PO Q12H 7 Days Qty: 14 0RF Rx Instructions: must administer with a meal/food lorazepam [Ativan] 1 mg tablet 1 mg PO Q8H PRN (Reason: anxiety) Qty: 14 0RF doxycycline monohydrate 100 mg capsule 100 mg PO BID 21 Days Qty: 42 0RF Rx Instructions: Positive lyme lorazepam [Ativan] 1 mg tablet 1 mg PO BID PRN (Reason: anxiety) Qty: 10 0RF lorazepam [Ativan] 1 mg tablet 1 mg PO BID PRN (Reason: anxiety) Qty: 10 0RF ondansetron 4 mg tablet,disintegrating 4 mg PO Q6H PRN (Reason: nausea and vomiting) Qty: 14 0RF amoxicillin-pot clavulanate 875-125 mg tablet 1 tab PO Q12H 10 Days Qty: 20 0RF oxycodone 5 mg capsule 5 mg PO Q8H PRN (Reason: pain) 3 Days Qty: 9 0RF Rx Instructions: Partial Fill upon patient request. promethazine 25 mg tablet 25 mg PO Q6H PRN (Reason: nausea and vomiting) Qty: 20 0RF ondansetron 4 mg tablet,disintegrating 4 mg PO Q8H PRN (Reason: nausea and vomiting) Qty: 10 0RF metoprolol tartrate 25 mg tablet 12.5 mg PO BID Qty: 30 0RF ondansetron 4 mg tablet,disintegrating 4 mg PO Q8H 3 Days Qty: 9 0RF cephalexin 500 mg capsule 500 mg PO Q6H 7 Days Qty: 28 0RF lidocaine [Lidoderm] 5 % adhesive patch,medicated 1 patch topical DAILY MDD remove after 12 hours PRN (Reason: pain) Qty: 30 0RF Rx Instructions: leave on most painful area for up to 12 hrs naproxen 500 mg tablet 500 mg PO BID PRN (Reason: pain) 10 Days Qty: 20 0RF prednisone 20 mg tablet 40 mg PO DAILY 5 Days Qty: 10 0RF <Regi Hay NP - Last Filed: 04/05/23 15:52> Stand Alone Forms: Work/School Release <Regi Hay NP - Last Filed: 04/05/23 15:52>
[2023-04-05 15:52] VITALS: BP 128/75; PULSE 92; RESP 16; TEMP 36.6; O2SAT 97; BMI 25.3
--- NOTE | 2023-04-05 16:15 | MHC.EDTECH ---
PATIENT BLOOD DRAWN AND URINE CULTURE COLLECTED AND SENT TO LAB .
[2023-04-05 16:16] LABS: MANUAL DIFF FLAG NO
[2023-04-05 16:18] LABS: Basophils Absolute Auto 0.1 X10*3/uL (0.0-0.2); Basophils Percent Auto 0.6 % (0-2); Eosinophils Absolute Auto 0.2 X10*3/uL (0.0-0.4); Eosinophils Percent Auto 1.9 % (0-4); Hematocrit 39.8 % (37.0-47.0); Hemoglobin 13.5 g/dl (12.0-16.0); Imm Gran Abs Auto 0.02 X10*3/uL (0.00-0.03); Imm Gran Pct Auto 0.2 % (0.0-0.4); Lymphocytes Absolute Auto 3.3 X10*3/uL (1.2-4.9); Lymphocytes Percent Auto 32.6 % (20-40); Mean Corpuscular HGB Conc 33.9 g/dl (31.0-35.0); Mean Corpuscular Hemoglobin 31.3 pg (27.0-33.0); Mean Corpuscular Volume 92.1 fL (80.0-98.0); Mean Platelet Volume 11.4 fL (9.4-12.3); Monocytes Absolute Auto 0.7 X10*3/uL (0.1-1.2); Monocytes Percent Auto 7.2 % (2-11); Neutrophils Absolute Auto 5.8 x10*3/uL (2.0-8.3); Neutrophils Percent Auto 57.5 % (45-73); Platelet Count 226 X10*3/uL (160-400); Red Blood Count 4.32 X10*6/uL (4.20-5.50); Red Cell Distribution Width 13.1 % (11.0-16.0); UPreg QC Valid YES
[2023-04-05 16:19] LABS: Appearance Urine Cloudy; Color Urine Yellow; Glucose Urine UA Negative (Negative); Leukocyte Esterase Urine Negative (Negative); Nitrite Urine Negative (Negative); PH 6.5 (5.0-9.0); Specific Gravity - Urine >= 1.030 (1.005-1.025); Urine Blood Negative (Negative); Urine Ketones Trace mg/dL (Negative); Urine Protein Negative (Neg-Trace)
[2023-04-05 16:20] LABS: Urine Pregnancy NEGATIVE (NEGATIVE)
[2023-04-05 16:43] LABS: Alanine Aminotransferase 11 U/L (0-31); Alkaline Phosphatase 53 U/L (39-117); Anion Gap 11 (12-20); Aspartate Amino Transferase 15 U/L (5-31); Bilirubin Direct 0.2 mg/dL (0.0-0.5); Bilirubin Total 0.9 mg/dL (0.0-1.0); Blood Urea Nitrogen 10 mg/dL (9-16); Calcium 9.5 mg/dL (8.4-10.2); Carbon Dioxide 27 mmol/L (22-29); Chloride 108 mmol/L (96-108); Estimated Glomerular Filt Rate > 60; Glucose Random 90 mg/dL (60-115); Lipase 15 U/L (8-78); Potassium 5.3 mmol/L (3.3-5.1); Sodium 141 mmol/L (135-145); Total Protein 6.5 g/dL (6.5-8.0)
--- NOTE | 2023-04-05 18:32 | PC.NURSE ---
pt c/o L flank pain x3 wks. she was seen here previously for similar pain. pt denies hematuria/dysuria. no fever/chills. area tender to touch.
[2023-04-05 18:37] VITALS: BP 114/66; PULSE 75; RESP 18; TEMP 36.7; O2SAT 99
--- NOTE | 2023-04-05 19:03 | PC.NURSE ---
report received from BARBARA Cortez Pt is resting comfortably on stretcher, respirations even and unlabored, alert and oriented x4. Pt reporting mild lower abdominal pain and some left leg pain. No new orders at this time
== END 2023-04-05 19:09 | disposition home or self-care (01) ==
PROVIDERS: Nurse Practitioner Family; Emergency Provider Emergency Medicine; PCP Nurse Practitioner Family
DX: M54.50 Low back pain, unspecified (principal); R10.9 Unspecified abdominal pain; Z79.899 Other long term (current) drug therapy
CPT/HCPCS: 36415; 74176; 80048; 80076; 81003; 81025; 83690; 85025; 99283; 99284

== ENCOUNTER 2023-04-14 11:36 | Emergency (ER) | payer OTHER, SELFPAY ==
[2023-04-14 11:39] VITALS: BP 140/80; PULSE 79; RESP 18; TEMP 36.9; O2SAT 99; BMI 26.6
--- NOTE | 2023-04-14 11:39 | ED.GENADULT ---
HPI - General Adult General Chief complaint: Recheck/Abnormal Lab/Rx Stated complaint: High Potassium Level Time Seen by Provider: 04/14/23 13:55 Source: patient Mode of arrival: ambulatory Limitations: no limitations History of Present Illness HPI narrative: 37-year-old female who presents emergency department for evaluation an elevated potassium of 5.8. The patient has been having left flank pain for approximately 3 weeks. She was 1st seen here in the emergency department for left flank pain and had a CT scan of the abdomen pelvis revealed a 2 mm left stone which was adjacent to the left ureter with no hydronephrosis or hydroureter. She returned the 2nd time on 04/05/2023 for left flank pain and repeat CT scan revealed no ureteral stone. In reviewing her lab values from multiple visits the high his potassium she has ever had was 5.3 and 5.7 with all of the other values being in the normal range since 2019. Patient again experience left flank pain and went to [facility]. She states that she had a pelvic ultrasound and abdominal ultrasound which did not reveal a clear cause for her pain. At that time she did have an elevated potassium of 5.8 with normal kidney function and normal bicarb. Patient was concerned about this elevated values so she came to the emergency department for evaluation. Related Data Previous Rx's Medication Instructions Recorded lorazepam 0.5 mg tablet (Ativan) 0.5 mg PO TID PRN anxiety #10 tabs 03/19/21 nitrofurantoin 100 mg PO Q12H 7 days #14 caps 01/15/22 monohydrate/macrocrystals 100 mg capsule (Macrobid) lorazepam 1 mg tablet (Ativan) 1 mg PO Q8H PRN anxiety #14 tabs 04/06/22 doxycycline monohydrate 100 mg 100 mg PO BID 21 days #42 caps 04/12/22 capsule amoxicillin 875 mg-potassium 1 tab PO Q12H 10 days #20 tabs 05/31/22 clavulanate 125 mg tablet oxycodone 5 mg capsule 5 mg PO Q8H PRN pain 3 days #9 caps 05/31/22 lorazepam 1 mg tablet (Ativan) 1 mg PO BID PRN anxiety #10 tabs 07/25/22 lorazepam 1 mg tablet (Ativan) 1 mg PO BID PRN anxiety #10 tabs 07/25/22 promethazine 25 mg tablet 25 mg PO Q6H PRN nausea and 07/25/22 vomiting #20 tabs ondansetron 4 mg disintegrating 4 mg PO Q6H PRN nausea and 08/01/22 tablet vomiting #14 tabs ondansetron 4 mg disintegrating 4 mg PO Q8H PRN nausea and 10/08/22 tablet vomiting #10 tabs metoprolol tartrate 25 mg tablet 12.5 mg PO BID #30 tabs 10/22/22 ondansetron 4 mg disintegrating 4 mg PO Q8H 3 days #9 tabs 02/01/23 tablet cephalexin 500 mg capsule 500 mg PO Q6H 7 days #28 caps 03/20/23 lidocaine 5 % topical patch 1 patch topical DAILY PRN pain #30 03/24/23 (Lidoderm) ea naproxen 500 mg tablet 500 mg PO BID PRN pain 10 days #20 03/24/23 tabs prednisone 20 mg tablet 40 mg PO DAILY 5 days #10 tabs 03/24/23 Allergies Allergy/AdvReac Type Severity Reaction Status Date / Time No Known Allergies Allergy Unknown NOT Verified 04/05/23 15:55 APPLICABLE Review of Systems Review of Systems: Yes all other systems are reviewed and are negative PMFSH Past Medical History Medical History Anxiety delivery delivered Cholecystectomy planned Heart palpitations Lyme disease Social History Social History Alcohol intake: never Patient Tobacco Use Status: Current everyday Tobacco user Physical Exam ED Vital Signs: Vital Signs - 24 hr 04/14/23 11:39 04/14/23 13:54 Temperature 98.4 F 98.3 F Pulse Rate 79 73 Respiratory Rate 18 16 Blood Pressure 140/80 H 106/70 Pulse Oximetry 99 100 Oxygen Delivery Method Room Air Room Air BMI result Body Mass Index 26.6 Const Other: Awake, alert, female patient, very pleasant cooperative, no distress HENMT Head: Yes normal to inspection, Yes normocephalic and Yes atraumatic Ears: external ears normal General nose exam: Normal external nose present Face and sinus: Yes normal facial exam Mouth: Normal oral and palatal mucosa present Throat: Yes posterior oropharynx normal GI Inspection: Yes normal to inspection Palpation (GI): Soft to palpation, nontender and no guarding Auscultation: normal bowel sounds General: Yes no CVA tenderness Back/Spine/Pelvis Back: no CVA tenderness Skin General skin exam: no rashes or lesions noted Neuro Cognition (Neuro): normal cognition Extrem General: Yes normal to inspection Psych Appearance: grossly normal Speech and movement: Normal speech and movement present Affect: normal affect Course Course Course Narrative: RME: 37-year-old female with a past medical history of anxiety, cholecystectomy, Lyme disease, c/o hyperkalemia to 5.8 noted on labs at [facility] last week. Admits was being seen for flank pain, had US that was unremarkable but looked at labs today and noted K+ was elevated. Admits to intermittent lightheadedness. denies CP EKG, labs, UA ordered Full HPI, ROS and PE to be performed by primary ED provider. Medical Decision Making Medical Decision Making [facility] Narrative: 37-year-old female who has been experiencing left flank pain intermittently over the past 3 weeks, presents emergency department for evaluation of an elevated potassium of 5.8 which was done at [facility] when she was there for left flank pain. She has had 2 visits of left flank pain here at our emergency department with the 1st CT scan showing a 2 mm stone near the ureter on the left with no hydronephrosis or hydro ureter. Repeat CT scan here revealed no left-sided ureteral stone, no hydronephrosis no hydro ureter. Patient mainly had all normal potassiums during multiple visits here in the emergency department with 2 values being elevated at 5.3 and 5.7. Patient's physical examination was unremarkable repeat CBC and CMP revealed normal potassium of 5.1 and a slight elevation of her bilirubin 1.4 which is not significant. I did discuss with her, hyperkalemia and her elevated potassium which I believe was a lab error most likely caused by hemolysis. Patient was given printed and verbal instructions discharged home Differential Diagnosis Differential diagnosis includes was not limited to hyperkalemia, acidosis, laboratory error secondary to hemolysis, potassium supplement Lab Data [facility] Lab Attestation statement: I reviewed the patient's lab results. 04/14/23 11:46 04/14/23 11:46 Labs: Lab Results 04/14/23 04/14/23 Range/Units 11:46 11:46 WBC 9.6 (4.8-10.8) X10*3/uL RBC 4.47 (4.20-5.50) X10*6/uL Hgb 13.6 (12.0-16.0) g/dl Hct 41.6 (37.0-47.0) % MCV 93.1 (80.0-98.0) fL MCH 30.4 (27.0-33.0) pg MCHC 32.7 (31.0-35.0) g/dl RDW 13.2 (11.0-16.0) % Plt Count 202 (160-400) X10*3/uL MPV 11.5 (9.4-12.3) fL Immature Gran % (Auto) 0.2 (0.0-0.4) % Neut % (Auto) 61.2 (45-73) % Lymph % (Auto) 29.6 (20-40) % Mccormick % (Auto) 6.5 (2-11) % Eos % (Auto) 1.9 (0-4) % Baso % (Auto) 0.6 (0-2) % Lymph # (Auto) 2.9 (1.2-4.9) X10*3/uL [place]ick # (Auto) 0.6 (0.1-1.2) X10*3/uL Eos # (Auto) 0.2 (0.0-0.4) X10*3/uL Baso # (Auto) 0.1 (0.0-0.2) X10*3/uL Abs Immat Gran (auto) 0.02 (0.00-0.03) X10*3/uL Absolute Neuts (auto) 5.9 (2.0-8.3) x10*3/uL Absolute Nucleated RBC 0.000 (0.0-0.012) X10*3/uL Nucleated RBC % (auto) 0.0 (0.0-0.2) /100WBC Sodium 143 (135-145) mmol/L Potassium 5.1 (3.3-5.1) mmol/L Chloride 111 H (96-108) mmol/L Carbon Dioxide 24 (22-29) mmol/L Anion Gap 13 (12-20) BUN 10 (9-16) mg/dL Creatinine 0.77 (0.5-1.4) mg/dL Estim Creat Clear Calc 101.7 Estimated GFR > 60 Random Glucose 101 (60-115) mg/dL Calcium 9.4 (8.4-10.2) mg/dL Magnesium 1.9 (1.6-2.6) mg/dL Total Bilirubin 1.4 H (0.0-1.0) mg/dL Direct Bilirubin 0.3 (0.0-0.5) mg/dL AST 13 (5-31) U/L ALT 11 (0-31) U/L Alkaline Phosphatase 51 (39-117) U/L Total Protein 6.8 (6.5-8.0) g/dL Albumin 4.1 (3.5-5.0) g/dL Independent Interpretation I performed an independent interpretation of an: EKG Interpretation: My independent interpretation patient's 12 EKG done at 1155 is as follows: Normal sinus rhythm with a rate of 75, normal TX interval QRS duration QTC interval, no ST segment elevation, no ST segment depression, no PT waves, this is a normal EKG. This is unchanged compared to EKG dated 01/20/2023. Discharge Plan Discharge Clinical Impression: Abnormal laboratory test Patient Disposition: Home, Self-Care Additional Instructions: Your blood work at [facility] did reveal an elevated potassium of 5.8. In reviewing your metabolic panel at that time, your kidney function was normal and your bicarb was normal which is reassuring We did a comprehensive metabolic panel on you today and your potassium was normal at 5.1 (the normal range is 3.3-5.1). Sometimes a high potassium can be caused by hemolysis which is breaking down of the red blood cell which then releases's potassium in your blood and can be caused by obtaining the blood specimen and not caused by illness. Your EKG today was normal, sometimes with a high potassium we will see changes in your EKG. I did review your CT scans from when your here previously, you did have a 2 mm left ureteral stone which was not present on your repeat CT scan Since your left flank pain keeps coming back I believe this probably more muscle pain as opposed to related to a kidney stone. Take ibuprofen 200 mg pills, 2 pills every 6 hours as needed for pain. Take Tylenol (acetaminophen) 500 mg pills, 2 pills every 6 hours as needed for pain. Follow-up with your doctor in 2 days. Please return to the emergency department if your symptoms get worse or if you develop any symptoms that are concerning to you. Prescriptions: No Action lorazepam [Ativan] 0.5 mg tablet 0.5 mg PO TID PRN (Reason: anxiety) Qty: 10 0RF Rx Instructions: patient may ask for partial fill nitrofurantoin monohyd/m-cryst [Macrobid] 100 mg capsule 100 mg PO Q12H 7 Days Qty: 14 0RF Rx Instructions: must administer with a meal/food lorazepam [Ativan] 1 mg tablet 1 mg PO Q8H PRN (Reason: anxiety) Qty: 14 0RF doxycycline monohydrate 100 mg capsule 100 mg PO BID 21 Days Qty: 42 0RF Rx Instructions: Positive lyme lorazepam [Ativan] 1 mg tablet 1 mg PO BID PRN (Reason: anxiety) Qty: 10 0RF lorazepam [Ativan] 1 mg tablet 1 mg PO BID PRN (Reason: anxiety) Qty: 10 0RF ondansetron 4 mg tablet,disintegrating 4 mg PO Q6H PRN (Reason: nausea and vomiting) Qty: 14 0RF amoxicillin-pot clavulanate 875-125 mg tablet 1 tab PO Q12H 10 Days Qty: 20 0RF oxycodone 5 mg capsule 5 mg PO Q8H PRN (Reason: pain) 3 Days Qty: 9 0RF Rx Instructions: Partial Fill upon patient request. promethazine 25 mg tablet 25 mg PO Q6H PRN (Reason: nausea and vomiting) Qty: 20 0RF ondansetron 4 mg tablet,disintegrating 4 mg PO Q8H PRN (Reason: nausea and vomiting) Qty: 10 0RF metoprolol tartrate 25 mg tablet 12.5 mg PO BID Qty: 30 0RF ondansetron 4 mg tablet,disintegrating 4 mg PO Q8H 3 Days Qty: 9 0RF cephalexin 500 mg capsule 500 mg PO Q6H 7 Days Qty: 28 0RF lidocaine [Lidoderm] 5 % adhesive patch,medicated 1 patch topical DAILY MDD remove after 12 hours PRN (Reason: pain) Qty: 30 0RF Rx Instructions: leave on most painful area for up to 12 hrs naproxen 500 mg tablet 500 mg PO BID PRN (Reason: pain) 10 Days Qty: 20 0RF prednisone 20 mg tablet 40 mg PO DAILY 5 Days Qty: 10 0RF
--- NOTE | 2023-04-14 11:41 | ECG_ITS ---
Test Reason : hyper K Blood Pressure : / mmHG Vent. Rate : 075 BPM Atrial Rate : 075 BPM P-R Int : 138 ms QRS Dur : 076 ms QT Int : 344 ms P-R-T Axes : 080 057 042 degrees QTc Int : 384 ms Normal sinus rhythm Normal ECG When compared with ECG of 20-JAN-2023 18:27, No significant change was found Referred By: Mikaela Andujar Electronically Signed By:MORENA KEARNS
[2023-04-14 11:50] LABS: MANUAL DIFF FLAG NO
[2023-04-14 11:51] LABS: Basophils Absolute Auto 0.1 X10*3/uL (0.0-0.2); Basophils Percent Auto 0.6 % (0-2); Eosinophils Absolute Auto 0.2 X10*3/uL (0.0-0.4); Eosinophils Percent Auto 1.9 % (0-4); Hematocrit 41.6 % (37.0-47.0); Hemoglobin 13.6 g/dl (12.0-16.0); Imm Gran Abs Auto 0.02 X10*3/uL (0.00-0.03); Imm Gran Pct Auto 0.2 % (0.0-0.4); Lymphocytes Absolute Auto 2.9 X10*3/uL (1.2-4.9); Lymphocytes Percent Auto 29.6 % (20-40); Mean Corpuscular HGB Conc 32.7 g/dl (31.0-35.0); Mean Corpuscular Hemoglobin 30.4 pg (27.0-33.0); Mean Corpuscular Volume 93.1 fL (80.0-98.0); Mean Platelet Volume 11.5 fL (9.4-12.3); Monocytes Absolute Auto 0.6 X10*3/uL (0.1-1.2); Monocytes Percent Auto 6.5 % (2-11); Neutrophils Absolute Auto 5.9 x10*3/uL (2.0-8.3); Neutrophils Percent Auto 61.2 % (45-73); Platelet Count 202 X10*3/uL (160-400); Red Blood Count 4.47 X10*6/uL (4.20-5.50); Red Cell Distribution Width 13.2 % (11.0-16.0); White Blood Count 9.6 X10*3/uL (4.8-10.8)
[2023-04-14 12:10] LABS: Alanine Aminotransferase 11 U/L (0-31); Albumin Level 4.1 g/dL (3.5-5.0); Alkaline Phosphatase 51 U/L (39-117); Anion Gap 13 (12-20); Aspartate Amino Transferase 13 U/L (5-31); Bilirubin Direct 0.3 mg/dL (0.0-0.5); Bilirubin Total 1.4 mg/dL (0.0-1.0); Blood Urea Nitrogen 10 mg/dL (9-16); Calcium 9.4 mg/dL (8.4-10.2); Carbon Dioxide 24 mmol/L (22-29); Chloride 111 mmol/L (96-108); Creatinine Clr Calc Pharmacy 101.7; Estimated Glomerular Filt Rate > 60; Glucose Random 101 mg/dL (60-115); Magnesium 1.9 mg/dL (1.6-2.6); Potassium 5.1 mmol/L (3.3-5.1); Sodium 143 mmol/L (135-145); Total Protein 6.8 g/dL (6.5-8.0)
[2023-04-14 13:54] VITALS: BP 106/70; PULSE 73; RESP 16; TEMP 36.8; O2SAT 100
[2023-04-14 14:58] LABS: Appearance Urine Cloudy; Color Urine Yellow; Glucose Urine UA Negative (Negative); Leukocyte Esterase Urine Moderate (2+) (Negative); Nitrite Urine Negative (Negative); PH 7.5 (5.0-9.0); UMIC TRIGGER UACC YES; Urine Blood Negative (Negative); Urine Ketones Negative (Negative); Urine Protein Negative (Neg-Trace)
[2023-04-14 15:11] LABS: Bacteria Urine 2+ (None Seen); Hyaline Casts Urine 0-2 /LPF (0-2); UACC Culture Trigger YES
== END 2023-04-14 14:59 | disposition home or self-care (01) ==
PROVIDERS: Physician Assistant; Emergency Provider Emergency Medicine Emergency Medical Services; PCP Nurse Practitioner Family
DX: R79.9 Abnormal finding of blood chemistry, unspecified (principal); F17.200 Nicotine dependence, unspecified, uncomplicated; Z79.899 Other long term (current) drug therapy
CPT/HCPCS: 36415; 80048; 80076; 81001; 81003; 83735; 85025; 87086; 93005; 99283; 99284

== ENCOUNTER 2023-04-19 08:55 | Emergency (ER) | payer OTHER, SELFPAY ==
[2023-04-19 09:03] VITALS: BP 119/79; PULSE 84; RESP 15; TEMP 36.6; O2SAT 98; BMI 25.8
--- NOTE | 2023-04-19 09:27 | ED_ITS ---
HPI - General Adult General Chief complaint: Abdominal Pain Stated complaint: L flank pain/Back pain Time Seen by Provider: 04/19/23 09:17 Source: patient Mode of arrival: ambulatory Limitations: no limitations History of Present Illness HPI narrative: 37-year-old female with no major medical problems presents with recurrent left- sided abdominal/flank pain. Patient has been to the emergency department twice for similar symptoms. She has had 2 imaging studies here. She has also presented [facility] with an ultrasound. Reportedly imaging studies have been unremarkable. She has followed up with her primary care provider who has referred her to urologist. In a vanc, patient is intermittent left-sided abdominal flank pain. The pain is worse at work. The pain can start in the back and radiates to the left side of the abdomen. Is not associated with nausea, vomiting, diarrhea. She denies any urinary frequency, urgency or dysuria. She had no fevers or chills. The pain does appear to be worse with certain movements. 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 Patient denies any paresthesias or focal weakness. Related Data Previous Rx's Medication Instructions Recorded lorazepam 0.5 mg tablet (Ativan) 0.5 mg PO TID PRN anxiety #10 tabs 03/19/21 nitrofurantoin 100 mg PO Q12H 7 days #14 caps 01/15/22 monohydrate/macrocrystals 100 mg capsule (Macrobid) lorazepam 1 mg tablet (Ativan) 1 mg PO Q8H PRN anxiety #14 tabs 04/06/22 doxycycline monohydrate 100 mg 100 mg PO BID 21 days #42 caps 04/12/22 capsule amoxicillin 875 mg-potassium 1 tab PO Q12H 10 days #20 tabs 05/31/22 clavulanate 125 mg tablet oxycodone 5 mg capsule 5 mg PO Q8H PRN pain 3 days #9 caps 05/31/22 lorazepam 1 mg tablet (Ativan) 1 mg PO BID PRN anxiety #10 tabs 07/25/22 lorazepam 1 mg tablet (Ativan) 1 mg PO BID PRN anxiety #10 tabs 07/25/22 promethazine 25 mg tablet 25 mg PO Q6H PRN nausea and 07/25/22 vomiting #20 tabs ondansetron 4 mg disintegrating 4 mg PO Q6H PRN nausea and 08/01/22 tablet vomiting #14 tabs ondansetron 4 mg disintegrating 4 mg PO Q8H PRN nausea and 10/08/22 tablet vomiting #10 tabs metoprolol tartrate 25 mg tablet 12.5 mg PO BID #30 tabs 10/22/22 ondansetron 4 mg disintegrating 4 mg PO Q8H 3 days #9 tabs 02/01/23 tablet cephalexin 500 mg capsule 500 mg PO Q6H 7 days #28 caps 03/20/23 lidocaine 5 % topical patch 1 patch topical DAILY PRN pain #30 03/24/23 (Lidoderm) ea naproxen 500 mg tablet 500 mg PO BID PRN pain 10 days #20 03/24/23 tabs prednisone 20 mg tablet 40 mg PO DAILY 5 days #10 tabs 03/24/23 gabapentin 100 mg capsule 100 mg PO BID #30 caps 04/19/23 meloxicam 15 mg tablet 15 mg PO DAILY #30 tabs 04/19/23 Allergies Allergy/AdvReac Type Severity Reaction Status Date / Time No Known Allergies Allergy Unknown NOT Verified 04/19/23 09:03 APPLICABLE Review of Systems Review of Systems: CONSTITUTIONAL: Denies weight loss, fever and chills. HEENT: Denies changes in vision and hearing. RESPIRATORY: Denies SOB and cough. CV: Denies palpitations no CP. GI: + abdominal pain, negative for nausea, vomiting and diarrhea. : Denies dysuria and urinary frequency. MSK: Denies myalgia and joint pain. SKIN: Denies rash and pruritus. NEUROLOGICAL: Denies headache and syncope. PSYCHIATRIC: Denies recent changes in mood. Denies anxiety and depression. All other ROS are negative unless in HPI PMFSH Past Medical History Medical History Anxiety delivery delivered Cholecystectomy planned Heart palpitations Lyme disease Social History Social History Alcohol intake: never Patient Tobacco Use Status: Current everyday Tobacco user Smoked in Last 30 Days: Yes Use of substances other than those prescribed or required for medical reasons: No Advance Directives: No Advance Directives Information Provided: No Physical Exam ED Vital Signs: Vital Signs - 24 hr 04/19/23 09:03 04/19/23 10:18 Temperature 98 F 97.8 F Pulse Rate 84 70 Respiratory Rate 15 14 Blood Pressure 119/79 112/64 Pulse Oximetry 98 98 Oxygen Delivery Method Room Air Room Air BMI result Body Mass Index 25.8 GEN: Well developed, no acute distress, alert, oriented HEENT: Normocephalic, atraumatic, normal external ears, nose appears normal, no oropharyngeal edema or exudates Eyes: Normal to appearance Neck: Supple, no lymphadenopathy Respiratory: Talks in complete sentences, no respiratory distress, clear to auscultation bilaterally Cardiovascular: Regular rate and rhythm, no murmurs rubs or gallops Abdomen: Soft, nontender, nondistended, no guarding, no rebound Back: No CVA tenderness Extremities: No clubbing cyanosis or edema Neurologic: No focal neurologic deficits, cranial nerves 2-12 intact, strength is 5/5 bilaterally Skin: No rash Course Course Course Narrative: 37-year-old female presents with left-sided abdominal pain and flank pain. I have reviewed the imaging studies from her previous visits. She has also been a [facility] for similar symptoms. Workup is underway eyes been unremarkable. She did have a nonobstructing kidney stone that was noted on wanted imaging study on the left kidney. Subsequent study did not identify the same kidney stone. I will check urinalysis COVID her test. Will re-evaluate patient following the studies. Reevaluation(s) Reevaluation #1: The workup is complete. She has microscopic hematuria. There is no indication for imaging studies at this time. Will order prescriptions for meloxicam and gabapentin. She has follow-up with Physical therapy this coming week. Would also recommend urologic follow-up and also GI. Time: 10:32 Medical Decision Making Medical Decision Making MDM Narrative: 37-year-old female presents with left-sided back/abdominal pain. Her examination is benign. I review [address] scans of the abdomen and pelvis from the past month. Patient is also reportedly had an ultrasound at [facility] which I am unable to review. At this time, symptoms could be consistent with musculoskeletal symptoms, muscle spasm, IBS, IBD true bacterial overgrowth. Will check urinalysis and urine . At this time, repeat images do not appear to be necessary or appropriate. I would recommend follow- up with an outpatient provider such as a diving board assembler, possible pain management, urology. Will discuss this with the patient as well. Differential Diagnosis Differential Diagnoses: The differential diagnosis associated with the presentation includes (See above) Lab Data MDM Lab Attestation statement: I reviewed the patient's lab results. Labs: Lab Results 04/19/23 04/19/23 Range/Units 09:30 09:30 Urine Color Dark Yellow Urine Appearance Clear Urine pH 5.5 (5.0-9.0) Ur Specific [place] >= 1.030 H (1.005-1.025) Urine Protein Negative (Neg-Trace) mg/dL Urine Glucose (UA) Negative (Negative) mg/dL Urine Ketones 40 (Negative) mg/dL Urine Blood Large (3+) H (Negative) Urine Nitrite Negative (Negative) Ur Leukocyte Esterase Trace H (Negative) Urine RBC >20 H (0-2) /HPF Urine WBC 0-5 (0-5) /HPF Ur Squamous Epith Cells 0-2 (0-2) /HPF Urine Bacteria None Seen (None Seen) Hyaline Casts 0-2 (0-2) /LPF Urine Test NEGATIVE (NEGATIVE) External Record Review Previous imaging studies CT abdomen and pelvis x2 during March of 2023 Prescription Management I considered prescription management with: Pain Medication Discharge Plan Discharge Clinical Impression: Acute flank pain, Microscopic hematuria Patient Disposition: Home, Self-Care Instructions: Hematuria (ED), Flank Pain (ED) Prescriptions: New meloxicam 15 mg tablet 15 mg PO DAILY Qty: 30 0RF gabapentin 100 mg capsule 100 mg PO BID Qty: 30 0RF No Action lorazepam [Ativan] 0.5 mg tablet 0.5 mg PO TID PRN (Reason: anxiety) Qty: 10 0RF Rx Instructions: patient may ask for partial fill nitrofurantoin monohyd/m-cryst [Macrobid] 100 mg capsule 100 mg PO Q12H 7 Days Qty: 14 0RF Rx Instructions: must administer with a meal/food lorazepam [Ativan] 1 mg tablet 1 mg PO Q8H PRN (Reason: anxiety) Qty: 14 0RF doxycycline monohydrate 100 mg capsule 100 mg PO BID 21 Days Qty: 42 0RF Rx Instructions: Positive lyme lorazepam [Ativan] 1 mg tablet 1 mg PO BID PRN (Reason: anxiety) Qty: 10 0RF lorazepam [Ativan] 1 mg tablet 1 mg PO BID PRN (Reason: anxiety) Qty: 10 0RF ondansetron 4 mg tablet,disintegrating 4 mg PO Q6H PRN (Reason: nausea and vomiting) Qty: 14 0RF amoxicillin-pot clavulanate 875-125 mg tablet 1 tab PO Q12H 10 Days Qty: 20 0RF oxycodone 5 mg capsule 5 mg PO Q8H PRN (Reason: pain) 3 Days Qty: 9 0RF Rx Instructions: Partial Fill upon patient request. promethazine 25 mg tablet 25 mg PO Q6H PRN (Reason: nausea and vomiting) Qty: 20 0RF ondansetron 4 mg tablet,disintegrating 4 mg PO Q8H PRN (Reason: nausea and vomiting) Qty: 10 0RF metoprolol tartrate 25 mg tablet 12.5 mg PO BID Qty: 30 0RF ondansetron 4 mg tablet,disintegrating 4 mg PO Q8H 3 Days Qty: 9 0RF cephalexin 500 mg capsule 500 mg PO Q6H 7 Days Qty: 28 0RF lidocaine [Lidoderm] 5 % adhesive patch,medicated 1 patch topical DAILY MDD remove after 12 hours PRN (Reason: pain) Qty: 30 0RF Rx Instructions: leave on most painful area for up to 12 hrs naproxen 500 mg tablet 500 mg PO BID PRN (Reason: pain) 10 Days Qty: 20 0RF prednisone 20 mg tablet 40 mg PO DAILY 5 Days Qty: 10 0RF Referrals: Simi Noland, MAINTENANCE ASSOCIATE [Primary Care Provider] - 1 week
[2023-04-19 09:40] LABS: Appearance Urine Clear; Color Urine Dark Yellow; Glucose Urine UA Negative (Negative); Leukocyte Esterase Urine Trace (Negative); Nitrite Urine Negative (Negative); PH 5.5 (5.0-9.0); Specific Gravity - Urine >= 1.030 (1.005-1.025); UMIC TRIGGER UACC YES; Urine Blood Large (3+) (Negative); Urine Ketones 40 mg/dL (Negative); Urine Protein Negative (Neg-Trace)
[2023-04-19 09:43] LABS: UPreg QC Valid YES; Urine Pregnancy NEGATIVE (NEGATIVE)
[2023-04-19 09:45] LABS: Bacteria Urine None Seen (None Seen); Hyaline Casts Urine 0-2 /LPF (0-2); RBC Urine >20 /HPF (0-2); Squamous Epithelial Cell Urine 0-2 /HPF (0-2); WBC Urine 0-5 /HPF (0-5)
[2023-04-19 10:18] VITALS: BP 112/64; PULSE 70; RESP 14; TEMP 36.6; O2SAT 98
== END 2023-04-19 10:46 | disposition home or self-care (01) ==
PROVIDERS: Emergency Provider Emergency Medicine; PCP Nurse Practitioner Family
DX: R31.29 Other microscopic hematuria (principal); R10.30 Lower abdominal pain, unspecified; M54.50 Low back pain, unspecified; F17.210 Nicotine dependence, cigarettes, uncomplicated; Z71.6 Tobacco abuse counseling; Z79.899 Other long term (current) drug therapy
CPT/HCPCS: 81001; 81025; 99283; 99284

== ENCOUNTER 2023-04-23 13:18 | Outpatient (REF) | payer OTHER, SELFPAY ==
[2023-04-23 16:29] LABS: Urine Cytology See Pathology rpt
== END 2023-04-23 13:19 | disposition home or self-care (01) ==
LOC: HO.LNP 13:18
PROVIDERS: PCP Nurse Practitioner Family; Visit Provider Nurse Practitioner Family
DX: R10.9 Unspecified abdominal pain (principal); N20.0 Calculus of kidney; R31.29 Other microscopic hematuria
CPT/HCPCS: 88112; 99202

== ENCOUNTER 2023-04-23 15:22 | Emergency (ER) | payer OTHER, SELFPAY ==
--- NOTE | ~2023-04-23 | US_ITS ---
EXAMINATION: US RETROPERITONEAL LIMITED (RENAL ONLY) CLINICAL INFORMATION: Hematuria. Left flank pain. COMPARISON: Most recent CT abdomen/pelvis dated 04/05/2023. TECHNIQUE: Grayscale and Doppler images of the kidneys were obtained. FINDINGS: RIGHT KIDNEY: 11.3 x 4 x 5.4 cm (SAG x AP x TRV). The kidney is normal in size, contour, and echogenicity. Renal cortical thickness is normal. No calculi or focal parenchymal lesions. No hydronephrosis. LEFT KIDNEY: 11.6 x 6.3 x 5.2 cm (SAG x AP x TRV). The kidney is normal in size, contour, and echogenicity. Renal cortical thickness is normal. No calculi or focal parenchymal lesions. No hydronephrosis. US/US renal BI IMPRESSION: No hydronephrosis or nephrolithiasis.
[2023-04-23 15:28] VITALS: BP 141/84; PULSE 72; RESP 16; TEMP 36.7; O2SAT 98; BMI 25.8
--- NOTE | 2023-04-23 15:30 | ED_ITS ---
HPI - General Adult General Chief complaint: Abdominal Pain Stated complaint: urology sent here for ultrasound, L side pain Time Seen by Provider: 04/23/23 20:58 Source: patient Mode of arrival: ambulatory Limitations: no limitations History of Present Illness HPI narrative: 37-year-old female with no major medical problems presents with left-sided abdominal flank pain. The patient has been to the emergency department 3-4 times previously. She has had 2 imaging studies here and was also seen at [facility] with an ultrasound. When the imaging studies demonstrate a kidney stone subsequent studies have not. She had followed up with her primary care who referred her to urologist. Urology saw her today and was sent to the emergency department for ultrasound. The pain is on left side. Moderate to severe. The pain is intermittent. There is no clear relieving or exacerbating features. Symptoms the pain starts in left side of the abdomen radiating to back and while other times, the pain starts in left flank and radiates to the abdomen. It is not associated with nausea, vomiting or diarrhea. She denies any urinary frequency, urgency or dysuria. She has had no fevers or chills. She has tried multiple analgesics without significant relief. Related Data Home Medications Medication Instructions Recorded Confirmed hydroxyzine HCl 50 mg tablet 50 mg PO BID PRN anxiety 04/23/23 propranolol 20 mg tablet 20 mg PO TID 04/23/23 Previous Rx's Medication Instructions Recorded lidocaine 5 % topical patch 1 patch topical DAILY PRN pain #30 03/24/23 (Lidoderm) ea gabapentin 100 mg capsule 100 mg PO BID #30 caps 04/19/23 meloxicam 15 mg tablet 15 mg PO DAILY #30 tabs 04/19/23 Allergies Allergy/AdvReac Type Severity Reaction Status Date / Time No Known Allergies Allergy Unknown NOT Verified 04/23/23 14:00 APPLICABLE Review of Systems Review of Systems: CONSTITUTIONAL: Denies weight loss, fever and chills. HEENT: Denies changes in vision and hearing. RESPIRATORY: Denies SOB and cough. CV: Denies palpitations no CP. GI: Positive abdominal pain, negative nausea, vomiting and diarrhea. : Denies dysuria and urinary frequency. Positive left flank pain MSK: Denies myalgia and joint pain. SKIN: Denies rash and pruritus. NEUROLOGICAL: Denies headache and syncope. PSYCHIATRIC: Denies recent changes in mood. Denies anxiety and depression. All other ROS are negative unless in HPI PMFSH Past Medical History Medical History Anxiety delivery delivered Cholecystectomy planned Heart palpitations Lyme disease Social History Social History Alcohol intake: never Patient Tobacco Use Status: Current everyday Tobacco user Advance Directives: No Advance Directives Information Provided: Yes Physical Exam ED Vital Signs: Vital Signs - 24 hr 04/23/23 15:28 04/23/23 21:17 Temperature 98.0 F 98 F Pulse Rate 72 58 Respiratory Rate 16 16 Blood Pressure 141/84 H 113/69 Pulse Oximetry 98 100 Oxygen Delivery Method Room Air BMI result Body Mass Index 25.8 GEN: Well developed, no acute distress, alert, oriented HEENT: Normocephalic, atraumatic, normal external ears, nose appears normal, no oropharyngeal edema or exudates Eyes: Normal to appearance Neck: Supple, no lymphadenopathy Respiratory: Talks in complete sentences, no respiratory distress, clear to auscultation bilaterally Cardiovascular: Regular rate and rhythm, no murmurs rubs or gallops Abdomen: Soft, nontender, nondistended, no guarding, no rebound Back: No CVA tenderness Extremities: No clubbing cyanosis or edema Neurologic: No focal neurologic deficits, cranial nerves 2-12 intact, strength is 5/5 bilaterally Skin: No rash Course Course Course Narrative: RME performed by Rowan Mcknight PA-C. Patient is a 37 year old assigned female at presenting to the emergency department with left flank pain. Labs ordered. Patient placed back in the waiting room pending room availability and results. Medical Decision Making Medical Decision Making [facility] Narrative: Flank 37-year-old female with chronic left flank and abdominal pain. She is sent by Urology for an ultrasound to rule out hydronephrosis, nephrolithiasis. Patient will receive Toradol for pain. Differential diagnosis could include renal colic, ureterolithiasis, pyelonephritis, radiculopathy, IBS, IBD, chronic pain. Differential Diagnosis Differential Diagnoses: The differential diagnosis associated with the presentation includes (See above) Admission/Observation Consideration of admission/observation: Escalation of care including admission/observation considered Lab Data [facility] Lab Attestation statement: I reviewed the patient's lab results. 04/23/23 17:26 04/23/23 17:26 Labs: Lab Results 04/23/23 04/23/23 04/23/23 Range/Units 17:26 17:26 17:26 WBC 10.3 (4.8-10.8) X10*3/uL RBC 4.30 (4.20-5.50) X10*6/uL Hgb 13.4 (12.0-16.0) g/dl Hct 40.8 (37.0-47.0) % MCV 94.9 (80.0-98.0) fL MCH 31.2 (27.0-33.0) pg MCHC 32.8 (31.0-35.0) g/dl RDW 13.2 (11.0-16.0) % Plt Count 202 (160-400) X10*3/uL MPV 11.8 (9.4-12.3) fL Immature Gran % (Auto) 0.3 (0.0-0.4) % Neut % (Auto) 58.0 (45-73) % Lymph % (Auto) 32.4 (20-40) % [place] % (Auto) 6.4 (2-11) % Eos % (Auto) 2.2 (0-4) % Baso % (Auto) 0.7 (0-2) % Lymph # (Auto) 3.4 (1.2-4.9) X10*3/uL [place] # (Auto) 0.7 (0.1-1.2) X10*3/uL Eos # (Auto) 0.2 (0.0-0.4) X10*3/uL Baso # (Auto) 0.1 (0.0-0.2) X10*3/uL Abs Immat Gran (auto) 0.03 (0.00-0.03) X10*3/uL Absolute Neuts (auto) 6.0 (2.0-8.3) x10*3/uL Absolute Nucleated RBC 0.000 (0.0-0.012) X10*3/uL Nucleated RBC % (auto) 0.0 (0.0-0.2) /100WBC Sodium 140 (135-145) mmol/L Potassium 5.6 H (3.3-5.1) mmol/L Chloride 110 H (96-108) mmol/L Carbon Dioxide 24 (22-29) mmol/L Anion Gap 12 (12-20) BUN 8 L (9-16) mg/dL Creatinine 0.79 (0.5-1.4) mg/dL Estim Creat Clear Calc 101.3 Estimated GFR > 60 Random Glucose 94 (60-115) mg/dL Calcium 9.7 (8.4-10.2) mg/dL Magnesium 1.9 (1.6-2.6) mg/dL Total Bilirubin 1.1 H (0.0-1.0) mg/dL AST 17 (5-31) U/L ALT 9 (0-31) U/L Alkaline Phosphatase 48 (39-117) U/L Total Protein 6.9 (6.5-8.0) g/dL Albumin 4.2 (3.5-5.0) g/dL Beta HCG, Quant < 2 mIU/mL Urine Color Yellow Urine Appearance Clear Urine pH 6.0 (5.0-9.0) Ur Specific [place] 1.010 (1.005-1.025) Urine Protein Negative (Neg-Trace) mg/dL Urine Glucose (UA) Negative (Negative) mg/dL Urine Ketones Negative (Negative) mg/dL Urine Blood Large (3+) H (Negative) Urine Nitrite Negative (Negative) Ur Leukocyte Esterase Negative (Negative) Urine RBC >20 H (0-2) /HPF Urine WBC 0-5 (0-5) /HPF Ur Squamous Epith Cells 0-2 (0-2) /HPF Urine Bacteria None Seen (None Seen) Hyaline Casts 0-2 (0-2) /LPF Independent Interpretation I performed an independent interpretation of an: Ultrasound (Renal: No acute disease process) Radiology Impression Discussion of test interpretation with radiology: I have reviewed the radiologist's reading. ( US/US renal BI IMPRESSION: No hydronephrosis or nephrolithiasis. Dictated By:Huang Dumas MDSigned By:<Electronically signed by Huang Dumas MD in OV>04/23/23 [id number]) External Record Review External record reviewed: Outpatient record (Urology note from today) Prescription Management I considered prescription management with: Pain Medication and Antibiotic Discharge Plan Discharge Clinical Impression: Left sided abdominal pain Patient Disposition: Home, Self-Care Instructions: Abdominal Pain (ED), Flank Pain (ED) Prescriptions: No Action lidocaine [Lidoderm] 5 % adhesive patch,medicated 1 patch topical DAILY MDD remove after 12 hours PRN (Reason: pain) Qty: 30 0RF Rx Instructions: leave on most painful area for up to 12 hrs meloxicam 15 mg tablet 15 mg PO DAILY Qty: 30 0RF gabapentin 100 mg capsule 100 mg PO BID Qty: 30 0RF propranolol 20 mg tablet 20 mg PO TID hydroxyzine HCl 50 mg tablet 50 mg PO BID PRN (Reason: anxiety) Referrals: Jamey Noland PA [Primary Care Provider] -
[2023-04-23 17:31] LABS: MANUAL DIFF FLAG NO
[2023-04-23 17:34] LABS: Basophils Absolute Auto 0.1 X10*3/uL (0.0-0.2); Basophils Percent Auto 0.7 % (0-2); Eosinophils Absolute Auto 0.2 X10*3/uL (0.0-0.4); Eosinophils Percent Auto 2.2 % (0-4); Hematocrit 40.8 % (37.0-47.0); Hemoglobin 13.4 g/dl (12.0-16.0); Imm Gran Abs Auto 0.03 X10*3/uL (0.00-0.03); Imm Gran Pct Auto 0.3 % (0.0-0.4); Lymphocytes Absolute Auto 3.4 X10*3/uL (1.2-4.9); Lymphocytes Percent Auto 32.4 % (20-40); Mean Corpuscular HGB Conc 32.8 g/dl (31.0-35.0); Mean Corpuscular Hemoglobin 31.2 pg (27.0-33.0); Mean Corpuscular Volume 94.9 fL (80.0-98.0); Mean Platelet Volume 11.8 fL (9.4-12.3); Monocytes Absolute Auto 0.7 X10*3/uL (0.1-1.2); Monocytes Percent Auto 6.4 % (2-11); Platelet Count 202 X10*3/uL (160-400); Red Cell Distribution Width 13.2 % (11.0-16.0); White Blood Count 10.3 X10*3/uL (4.8-10.8)
[2023-04-23 17:49] LABS: Appearance Urine Clear; Color Urine Yellow; Glucose Urine UA Negative (Negative); Leukocyte Esterase Urine Negative (Negative); Nitrite Urine Negative (Negative); UMIC TRIGGER UACC YES; Urine Blood Large (3+) (Negative); Urine Ketones Negative (Negative); Urine Protein Negative (Neg-Trace)
[2023-04-23 17:52] LABS: Alanine Aminotransferase 9 U/L (0-31); Albumin Level 4.2 g/dL (3.5-5.0); Alkaline Phosphatase 48 U/L (39-117); Anion Gap 12 (12-20); Aspartate Amino Transferase 17 U/L (5-31); Bilirubin Total 1.1 mg/dL (0.0-1.0); Blood Urea Nitrogen 8 mg/dL (9-16); Calcium 9.7 mg/dL (8.4-10.2); Carbon Dioxide 24 mmol/L (22-29); Chloride 110 mmol/L (96-108); Creatinine Clr Calc Pharmacy 101.3; Estimated Glomerular Filt Rate > 60; Glucose Random 94 mg/dL (60-115); Magnesium 1.9 mg/dL (1.6-2.6); Potassium 5.6 mmol/L (3.3-5.1); Sodium 140 mmol/L (135-145); Total Protein 6.9 g/dL (6.5-8.0)
[2023-04-23 17:53] LABS: HCG Quantitative < 2 mIU/mL
[2023-04-23 18:00] LABS: Bacteria Urine None Seen (None Seen); Hyaline Casts Urine 0-2 /LPF (0-2); RBC Urine >20 /HPF (0-2); Squamous Epithelial Cell Urine 0-2 /HPF (0-2); WBC Urine 0-5 /HPF (0-5)
[2023-04-23 21:17] VITALS: BP 113/69; PULSE 58; RESP 16; TEMP 36.6; O2SAT 100
[2023-04-23] MEDS: Ketorolac Tromethamine 30 MG/ML VIAL IM (22:15)
== END 2023-04-23 22:21 | disposition home or self-care (01) ==
PROVIDERS: Physician Assistant Medical; Emergency Provider Emergency Medicine; PCP Physician Assistant
DX: R10.9 Unspecified abdominal pain (principal); F17.200 Nicotine dependence, unspecified, uncomplicated; Z79.899 Other long term (current) drug therapy
CPT/HCPCS: 36415; 76775; 80053; 81001; 83735; 84702; 85025; 96374; 99283; 99284; J1885

== ENCOUNTER 2023-04-24 20:55 | Emergency (ER) | payer OTHER, SELFPAY ==
--- NOTE | 2023-04-24 | ECG_ITS ---
Test Reason : PALPATIONS Blood Pressure : / mmHG Vent. Rate : 064 BPM Atrial Rate : 064 BPM P-R Int : 152 ms QRS Dur : 064 ms QT Int : 362 ms P-R-T Axes : 067 050 044 degrees QTc Int : 373 ms Sinus rhythm with Premature supraventricular complexes Otherwise normal ECG When compared with ECG of 14-APR-2023 11:55, Premature supraventricular complexes are now Present Referred By: Generic ED Physician Electronically Signed By:IAN LAND MD
[2023-04-24 21:04] VITALS: BP 130/86; PULSE 69; RESP 16; TEMP 36; O2SAT 100; BMI 25.9
[2023-04-24 22:31] VITALS: BP 111/77; PULSE 57; RESP 18; TEMP 36.4; O2SAT 100
--- NOTE | 2023-04-24 23:38 | ED_ITS ---
HPI - Arrhythmia/Palpitations General Chief Complaint: Arrhythmia/Palpitations Stated Complaint: constant PVCs Time Seen by Provider: 04/24/23 22:43 Source: patient Mode of arrival: ambulatory Limitations: no limitations History of Present Illness HPI narrative: 37-year-old female presents with palpitations. Palpitations been ongoing for the past 48 hours. These typically occur around her.. She had has reported history of PVCs followed by Cardiology. Her symptoms appear to be more consistent and more severe. She denies any chest pain, lightheadedness, shortness of breath, dyspnea on exertion, lower extremity edema. There is no clear relieving or exacerbating features. The seem to occur quite randomly. Symptoms are intermittent. Related Data Home Medications Medication Instructions Recorded Confirmed hydroxyzine HCl 50 mg tablet 50 mg PO BID PRN anxiety 04/23/23 propranolol 20 mg tablet 20 mg PO TID 04/23/23 Previous Rx's Medication Instructions Recorded lidocaine 5 % topical patch 1 patch topical DAILY PRN pain #30 03/24/23 (Lidoderm) ea gabapentin 100 mg capsule 100 mg PO BID #30 caps 04/19/23 meloxicam 15 mg tablet 15 mg PO DAILY #30 tabs 04/19/23 Allergies Allergy/AdvReac Type Severity Reaction Status Date / Time No Known Allergies Allergy Unknown NOT Verified 04/23/23 14:00 APPLICABLE Review of Systems Review of Systems: CONSTITUTIONAL: Denies weight loss, fever and chills. HEENT: Denies changes in vision and hearing. RESPIRATORY: Denies SOB and cough. CV: + palpitations no CP. GI: Denies abdominal pain, nausea, vomiting and diarrhea. : Denies dysuria and urinary frequency. MSK: Denies myalgia and joint pain. Flank pain SKIN: Denies rash and pruritus. NEUROLOGICAL: Denies headache and syncope. PSYCHIATRIC: Denies recent changes in mood. Denies anxiety and depression. All other ROS are negative unless in HPI PMFSH Past Medical History Medical History Anxiety delivery delivered Cholecystectomy planned Heart palpitations Lyme disease Social History Social History Alcohol intake: never Patient Tobacco Use Status: Current everyday Tobacco user Smoked in Last 30 Days: Yes Use of substances other than those prescribed or required for medical reasons: No Any prior treatment program specific to substance use: No Advance Directives: No Advance Directives Information Provided: No Physical Exam Vital Signs: Vital Signs: Last Vital Signs Temp 97.6 F 04/24/23 22:31 Pulse 57 04/24/23 22:31 Resp 18 04/24/23 22:31 BP 111/77 04/24/23 22:31 Pulse Ox 100 04/24/23 22:31 O2 Del Method Room Air 04/24/23 22:31 BMI result Body Mass Index 25.9 GEN: Well developed, no acute distress, alert, oriented HEENT: Normocephalic, atraumatic, normal external ears, nose appears normal, no oropharyngeal edema or exudates Eyes: Normal to appearance Neck: Supple, no lymphadenopathy Respiratory: Talks in complete sentences, no respiratory distress, clear to auscultation bilaterally Cardiovascular: Regular rate and rhythm, no murmurs rubs or gallops, frequent extra beats Abdomen: Soft, nontender, nondistended, no guarding, no rebound Back: No CVA tenderness Extremities: No clubbing cyanosis or edema Neurologic: No focal neurologic deficits, cranial nerves 2-12 intact, strength is 5/5 bilaterally Skin: No rash Course Course Course Narrative: 37-year-old female presents with palpitations. EKG was consistent with frequent PACs. I have been monitoring her on hall monitor, again her palpitations are most likely related to PACs versus the PVC she has had in the past. Patient had a mild potassium elevation yesterday. Will repeat potassium level, magnesium and TSH. Will continue monitor patient and re-evaluate. 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 Reevaluation(s) Reevaluation #1: The workup is complete. There were no major electrolyte abnormality. Thyroid is normal. There is no significant anemia. 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 She has history of PVCs. Examination is consistent with extra beats. EKG and cardiac monitoring or currently showing PACs, not PVCs. She is not having chest pain. Doubt acute coronary syndrome. She did have an elevated potassium level yesterday that was only mildly elevated. Will check a repeat potassium level. Electrolyte abnormalities, thyroid dysfunction or other possible diagnoses. She has no ev idence of AFib, atrial flutter or other cardiac dysrhythmias. Patient placed on a hall monitor, observed, check some routine labs and likely discharge patient to follow up. Differential Diagnosis Differential Diagnoses: The differential diagnosis associated with the presentation includes (See above) Lab Data MDM Lab Attestation statement: I reviewed the patient's lab results. 04/24/23 23:35 Labs: Lab Results 04/24/23 Range/Units 23:35 Sodium 143 (135-145) mmol/L Potassium 4.6 (3.3-5.1) mmol/L Chloride 111 H (96-108) mmol/L Carbon Dioxide 25 (22-29) mmol/L Anion Gap 12 (12-20) BUN 17 H (9-16) mg/dL Creatinine 0.75 (0.5-1.4) mg/dL Estim Creat Clear Calc 106.8 Estimated GFR > 60 Random Glucose 95 (60-115) mg/dL Calcium 9.1 D (8.4-10.2) mg/dL Magnesium 1.9 (1.6-2.6) mg/dL TSH 2.78 (0.32-4.0) uIU/mL Independent Interpretation I performed an independent interpretation of an: EKG (Normal sinus rhythm heart rate 64, no acute ST elevations or depressions, PACs present) Prescription Management I considered prescription management with: Pain Medication Discharge Plan Discharge Clinical Impression: PAC (premature atrial contraction) Patient Disposition: Home, Self-Care Instructions: Premature Atrial Contractions (ED) Prescriptions: No Action lidocaine [Lidoderm] 5 % adhesive patch,medicated 1 patch topical DAILY MDD remove after 12 hours PRN (Reason: pain) Qty: 30 0RF Rx Instructions: leave on most painful area for up to 12 hrs meloxicam 15 mg tablet 15 mg PO DAILY Qty: 30 0RF gabapentin 100 mg capsule 100 mg PO BID Qty: 30 0RF propranolol 20 mg tablet 20 mg PO TID hydroxyzine HCl 50 mg tablet 50 mg PO BID PRN (Reason: anxiety) Referrals: Simi Noland NP [Primary Care Provider] - 3 days
[2023-04-25 00:10] LABS: Anion Gap 12 (12-20); Blood Urea Nitrogen 17 mg/dL (9-16); Calcium 9.1 mg/dL (8.4-10.2); Carbon Dioxide 25 mmol/L (22-29); Chloride 111 mmol/L (96-108); Creatinine Clr Calc Pharmacy 106.8; Estimated Glomerular Filt Rate > 60; Glucose Random 95 mg/dL (60-115); Magnesium 1.9 mg/dL (1.6-2.6); Potassium 4.6 mmol/L (3.3-5.1); Sodium 143 mmol/L (135-145)
[2023-04-25 00:32] LABS: TSH reflex Free T4 2.78 uIU/mL (0.32-4.0)
== END 2023-04-25 00:41 | disposition home or self-care (01) ==
PROVIDERS: Emergency Provider Emergency Medicine; PCP Nurse Practitioner Family
DX: I49.9 Cardiac arrhythmia, unspecified (principal); R00.2 Palpitations; Z79.899 Other long term (current) drug therapy; F17.210 Nicotine dependence, cigarettes, uncomplicated; Z71.6 Tobacco abuse counseling
CPT/HCPCS: 36415; 80048; 83735; 84443; 93005; 99283; 99285

== ENCOUNTER 2023-04-30 15:21 | Emergency (ER) | payer OTHER, SELFPAY ==
[2023-04-30 15:54] VITALS: BP 126/80; PULSE 83; RESP 16; TEMP 36.4; O2SAT 100; BMI 25.0
--- NOTE | 2023-04-30 15:54 | ED.GENADULT ---
HPI - General Adult General Chief complaint: Abdominal Pain Stated complaint: Stabbing pain to R lower abdomen Time Seen by Provider: 04/30/23 16:33 Source: patient Mode of arrival: ambulatory Limitations: no limitations History of Present Illness HPI narrative: 37 yo female with a hx of nephrolithiasis presents to the ER with intermittent left sided abdominal/flank pain for about a month. She states that the abdominal pain is worse with meals, stating pasta with sauce and tacos have been some contributors to her pain. She reports sharp stabbing pain in her left upper abdomen. She states that she has occasional diarrhea and consitipation. She states her last BM was this morning and reports that her stool was more runny then normal. She denies nausea, vomiting, pain and difficulty with urination. Patient was seen here recently for the same in March and last week. Has CT scans and ultrasounds of her kidneys. MD complaint: LUQ pain Onset (ago): month(s) Location: abdomen Radiation: non-radiation and flank Severity: mild Quality: stabbing and sharp Pain Consistency: intermittent Relieving factors: none Exacerbating factors: eating Associated symptoms: denies other symptoms Treatments prior to arrival: none Related Data Home Medications Medication Instructions Recorded Confirmed hydroxyzine HCl 50 mg tablet 50 mg PO BID PRN anxiety 04/23/23 propranolol 20 mg tablet 20 mg PO TID 04/23/23 Previous Rx's Medication Instructions Recorded lidocaine 5 % topical patch 1 patch topical DAILY PRN pain #30 03/24/23 (Lidoderm) ea gabapentin 100 mg capsule 100 mg PO BID #30 caps 04/19/23 meloxicam 15 mg tablet 15 mg PO DAILY #30 tabs 04/19/23 phenazopyridine 100 mg tablet 100 mg PO Q8H 6 doses #6 tabs 04/25/23 pantoprazole 40 mg tablet,delayed 40 mg PO DAILY #14 tabs 04/30/23 release (Protonix) Allergies Allergy/AdvReac Type Severity Reaction Status Date / Time No Known Allergies Allergy Unknown NOT Verified 04/30/23 15:53 APPLICABLE Review of Systems Review of Systems: Yes all other systems are reviewed and are negative [facility] Past Medical History Medical History Anxiety delivery delivered Cholecystectomy planned Heart palpitations Lyme disease Social History Social History Alcohol intake: never Patient Tobacco Use Status: Current everyday Tobacco user Advance Directives: No Advance Directives Information Provided: No Physical Exam ED Vital Signs: Vital Signs - 24 hr 04/30/23 15:54 04/30/23 17:33 Temperature 97.5 F 98.0 F Pulse Rate 83 88 Respiratory Rate 16 16 Blood Pressure 126/80 121/78 Pulse Oximetry 100 97 Oxygen Delivery Method Room Air Room Air BMI result Body Mass Index 25.0 Appearance: Alert. Oriented X3. No acute distress. Head: normocephalic, atraumatic. Eyes: Pupils equal, round and reactive to light. ENT: Pharynx normal. No tonsillar swelling or exudate. Neck: Normal inspection. Neck supple. CVS: Normal heart rate and rhythm. Pulses normal. Respiratory: No respiratory distress. Breath sounds normal. Abdomen: Soft and nontender. +BS x4. No CVA tenderness Skin: Skin warm and dry. Normal skin color. Normal skin turgor. No rashes. Extremities: No lower extremity edema. No joint swelling. Neuro/psych: Oriented X 3. No motor deficit. No sensory deficit. CN II-XII intact. Normal speech and cognition. Course Course Course Narrative: This is an RME: Additional HPI, ROS, PE not included below will be deferred to primary provider. [id number] presenting to the emergency department with complaints of left sided flank pain x 1 month. Has been seen here in the last month, on 03/24/2023, found to have small nonobstructing kidney stones, which cleared with abd ct on 04/05. Had renal US on 04/23 which was normal. No urinary symptoms. Left sided pain worsens after eating taco garcia and pasta with sauce. Followed up with urology - has f/u in may. +constipation. VSS. Pt very comfortable. Stable to return to the until seen. Plan: basic labs Medical Decision Making Medical Decision Making [facility] Narrative: 37 yo female with a hx of nephrolithiasis presents to the ER with left sided abdominal/flank pain. She reports that food has been an exacerbating factor to her left abdominal pain. She was previously been seen here in March as well as on 04/23 in which a renal U/S was performed that did not show evidence of kidney stone or hydronephrosis. A U/A on 04/23 showed RBC in the urine. She saw Urology in the office. CT scan done in March was unremarkable. Today U/A did not show signs of infection or RBC in the urine ruling out cysitis or nephrolithiasis, labs did not indicate infectious etiology. Given her sx and lab work, this is a most likely cause of gastritits. will start on PPI, food diary and have her see GI. stable for d/c home. Differential Diagnosis Differential Diagnoses: The differential diagnosis associated with the presentation includes gastritis, IBS, IBD, renal colic, nephrolithiasis, cystitis, Lab Data MDM Lab Attestation statement: I reviewed the patient's lab results. Labs grossly normal 04/30/23 16:10 04/30/23 16:10 Labs: Lab Results 04/30/23 04/30/23 04/30/23 Range/Units 16:10 16:10 16:19 WBC 9.6 (4.8-10.8) X10*3/uL RBC 4.39 (4.20-5.50) X10*6/uL Hgb 13.5 (12.0-16.0) g/dl Hct 40.6 (37.0-47.0) % MCV 92.5 (80.0-98.0) fL MCH 30.8 (27.0-33.0) pg MCHC 33.3 (31.0-35.0) g/dl RDW 13.0 (11.0-16.0) % Plt Count 207 (160-400) X10*3/uL MPV 11.3 (9.4-12.3) fL Immature Gran % (Auto) 0.2 (0.0-0.4) % Neut % (Auto) 60.2 (45-73) % Lymph % (Auto) 31.3 (20-40) % [place] % (Auto) 6.5 (2-11) % Eos % (Auto) 1.3 (0-4) % Baso % (Auto) 0.5 (0-2) % Lymph # (Auto) 3.0 (1.2-4.9) X10*3/uL [place] # (Auto) 0.6 (0.1-1.2) X10*3/uL Eos # (Auto) 0.1 (0.0-0.4) X10*3/uL Baso # (Auto) 0.1 (0.0-0.2) X10*3/uL Abs Immat Gran (auto) 0.02 (0.00-0.03) X10*3/uL Absolute Neuts (auto) 5.8 (2.0-8.3) x10*3/uL Absolute Nucleated RBC 0.000 (0.0-0.012) X10*3/uL Nucleated RBC % (auto) 0.0 (0.0-0.2) /100WBC Sodium 141 (135-145) mmol/L Potassium 4.9 (3.3-5.1) mmol/L Chloride 108 (96-108) mmol/L Carbon Dioxide 26 (22-29) mmol/L Anion Gap 12 (12-20) BUN 12 (9-16) mg/dL Creatinine 0.82 (0.5-1.4) mg/dL Estim Creat Clear Calc 89.6 Estimated GFR > 60 Random Glucose 94 (60-115) mg/dL Calcium 9.7 D (8.4-10.2) mg/dL Total Bilirubin 0.9 (0.0-1.0) mg/dL Direct Bilirubin 0.2 (0.0-0.5) mg/dL AST 13 (5-31) U/L ALT 8 (0-31) U/L Alkaline Phosphatase 51 (39-117) U/L Total Protein 6.9 (6.5-8.0) g/dL Albumin 4.2 (3.5-5.0) g/dL Lipase 14 (8-78) U/L Urine Color Yellow Urine Appearance Clear Urine pH 6.5 (5.0-9.0) Ur Specific [place] 1.025 (1.005-1.025) Urine Protein Negative (Neg-Trace) mg/dL Urine Glucose (UA) Negative (Negative) mg/dL Urine Ketones 15 (Negative) mg/dL Urine Blood Negative (Negative) Urine Nitrite Negative (Negative) Ur Leukocyte Esterase Trace H (Negative) Urine RBC 0-2 (0-2) /HPF Urine WBC 0-5 (0-5) /HPF Ur Squamous Epith Cells 0-2 (0-2) /HPF Urine Bacteria None Seen (None Seen) Hyaline Casts 0-2 (0-2) /LPF Urine Test (NEGATIVE) 04/30/23 Range/Units 16:19 WBC (4.8-10.8) X10*3/uL RBC (4.20-5.50) X10*6/uL Hgb (12.0-16.0) g/dl Hct (37.0-47.0) % MCV (80.0-98.0) fL MCH (27.0-33.0) pg MCHC (31.0-35.0) g/dl RDW (11.0-16.0) % Plt Count (160-400) X10*3/uL MPV (9.4-12.3) fL Immature Gran % (Auto) (0.0-0.4) % Neut % (Auto) (45-73) % Lymph % (Auto) (20-40) % [place] % (Auto) (2-11) % Eos % (Auto) (0-4) % Baso % (Auto) (0-2) % Lymph # (Auto) (1.2-4.9) X10*3/uL [place] # (Auto) (0.1-1.2) X10*3/uL Eos # (Auto) (0.0-0.4) X10*3/uL Baso # (Auto) (0.0-0.2) X10*3/uL Abs Immat Gran (auto) (0.00-0.03) X10*3/uL Absolute Neuts (auto) (2.0-8.3) x10*3/uL Absolute Nucleated RBC (0.0-0.012) X10*3/uL Nucleated RBC % (auto) (0.0-0.2) /100WBC Sodium (135-145) mmol/L Potassium (3.3-5.1) mmol/L Chloride (96-108) mmol/L Carbon Dioxide (22-29) mmol/L Anion Gap (12-20) BUN (9-16) mg/dL Creatinine (0.5-1.4) mg/dL Estim Creat Clear Calc Estimated GFR Random Glucose (60-115) mg/dL Calcium (8.4-10.2) mg/dL Total Bilirubin (0.0-1.0) mg/dL Direct Bilirubin (0.0-0.5) mg/dL AST (5-31) U/L ALT (0-31) U/L Alkaline Phosphatase (39-117) U/L Total Protein (6.5-8.0) g/dL Albumin (3.5-5.0) g/dL Lipase (8-78) U/L Urine Color Urine Appearance Urine pH (5.0-9.0) Ur Specific [place] (1.005-1.025) Urine Protein (Neg-Trace) mg/dL Urine Glucose (UA) (Negative) mg/dL Urine Ketones (Negative) mg/dL Urine Blood (Negative) Urine Nitrite (Negative) Ur Leukocyte Esterase (Negative) Urine RBC (0-2) /HPF Urine WBC (0-5) /HPF Ur Squamous Epith Cells (0-2) /HPF Urine Bacteria (None Seen) Hyaline Casts (0-2) /LPF Urine Test NEGATIVE (NEGATIVE) Radiology Impression Discussion of test interpretation with radiology: I have reviewed the radiologist's reading. Radiologist Impression: 04/23 - US/US renal BI IMPRESSION: No hydronephrosis or nephrolithiasis. 04/05 - CT/CT abdomen pelvis wo IV con IMPRESSION: No renal or ureteric calculi seen. No obstructive changes.. External Record Review External record reviewed: Outpatient record, Prior outpatient labs and Prior outpatient radiology Prescription Management I considered prescription management with: Other (ppi) Critical Care Time Critical Care Time Critical Care Time: No Discharge Plan Discharge Clinical Impression: Gastritis Patient Disposition: Home, Self-Care Instructions: Gastritis (DC), Diet for Stomach Ulcers and Gastritis (ED) Additional Instructions: Your lab workup today was unremarkable. Your urine test was normal, negative for infection and . Your pain is most likely due to gastritis which is and irritation and inflammation of your stomach lining. Start taking the prescribed medication as directed for this. Stick to a bland diet. Avoid foods high in acid, avoid alcohol and NSAID medications like Aleve, Motrin, Advil or ibuprofen. Follow up with your doctor as needed. Follow up with GI doctor if you symptoms persist despite dietary modifications and medication. If you develop new or worsening symptoms call 911 or come back to the ER for further evaluation. Prescriptions: New pantoprazole [Protonix] 40 mg tablet,delayed release (DR/EC) 40 mg PO DAILY Qty: 14 0RF No Action lidocaine [Lidoderm] 5 % adhesive patch,medicated 1 patch topical DAILY MDD remove after 12 hours PRN (Reason: pain) Qty: 30 0RF Rx Instructions: leave on most painful area for up to 12 hrs meloxicam 15 mg tablet 15 mg PO DAILY Qty: 30 0RF gabapentin 100 mg capsule 100 mg PO BID Qty: 30 0RF propranolol 20 mg tablet 20 mg PO TID hydroxyzine HCl 50 mg tablet 50 mg PO BID PRN (Reason: anxiety) phenazopyridine 100 mg tablet 100 mg PO Q8H 0 Days Qty: 6 0RF Referrals: [facility] [Provider Group] (LUQ pain, postprandial x6 weeks) Interventions: ED Discharge Assessment Last Done: 04/30/23 17:33 Discharge Date/Time: 04/30/23 17:34
[2023-04-30 16:14] LABS: MANUAL DIFF FLAG NO
[2023-04-30 16:16] LABS: Basophils Absolute Auto 0.1 X10*3/uL (0.0-0.2); Basophils Percent Auto 0.5 % (0-2); Eosinophils Absolute Auto 0.1 X10*3/uL (0.0-0.4); Eosinophils Percent Auto 1.3 % (0-4); Hematocrit 40.6 % (37.0-47.0); Hemoglobin 13.5 g/dl (12.0-16.0); Imm Gran Abs Auto 0.02 X10*3/uL (0.00-0.03); Imm Gran Pct Auto 0.2 % (0.0-0.4); Lymphocytes Percent Auto 31.3 % (20-40); Mean Corpuscular HGB Conc 33.3 g/dl (31.0-35.0); Mean Corpuscular Hemoglobin 30.8 pg (27.0-33.0); Mean Corpuscular Volume 92.5 fL (80.0-98.0); Mean Platelet Volume 11.3 fL (9.4-12.3); Monocytes Absolute Auto 0.6 X10*3/uL (0.1-1.2); Monocytes Percent Auto 6.5 % (2-11); Neutrophils Absolute Auto 5.8 x10*3/uL (2.0-8.3); Neutrophils Percent Auto 60.2 % (45-73); Platelet Count 207 X10*3/uL (160-400); Red Blood Count 4.39 X10*6/uL (4.20-5.50); White Blood Count 9.6 X10*3/uL (4.8-10.8)
[2023-04-30 16:25] LABS: Appearance Urine Clear; Color Urine Yellow; Glucose Urine UA Negative (Negative); Leukocyte Esterase Urine Trace (Negative); Nitrite Urine Negative (Negative); PH 6.5 (5.0-9.0); Specific Gravity - Urine 1.025 (1.005-1.025); UMIC TRIGGER UACC YES; Urine Blood Negative (Negative); Urine Ketones 15 mg/dL (Negative); Urine Protein Negative (Neg-Trace)
[2023-04-30 16:29] LABS: Bacteria Urine None Seen (None Seen); Hyaline Casts Urine 0-2 /LPF (0-2); RBC Urine 0-2 /HPF (0-2); Squamous Epithelial Cell Urine 0-2 /HPF (0-2); WBC Urine 0-5 /HPF (0-5)
[2023-04-30 16:31] LABS: Alanine Aminotransferase 8 U/L (0-31); Albumin Level 4.2 g/dL (3.5-5.0); Alkaline Phosphatase 51 U/L (39-117); Anion Gap 12 (12-20); Aspartate Amino Transferase 13 U/L (5-31); Bilirubin Direct 0.2 mg/dL (0.0-0.5); Bilirubin Total 0.9 mg/dL (0.0-1.0); Blood Urea Nitrogen 12 mg/dL (9-16); Calcium 9.7 mg/dL (8.4-10.2); Carbon Dioxide 26 mmol/L (22-29); Chloride 108 mmol/L (96-108); Creatinine Clr Calc Pharmacy 89.6; Estimated Glomerular Filt Rate > 60; Glucose Random 94 mg/dL (60-115); Lipase 14 U/L (8-78); Potassium 4.9 mmol/L (3.3-5.1); Sodium 141 mmol/L (135-145); Total Protein 6.9 g/dL (6.5-8.0)
[2023-04-30 16:51] LABS: UPreg QC Valid YES; Urine Pregnancy NEGATIVE (NEGATIVE)
[2023-04-30 17:33] VITALS: BP 121/78; PULSE 88; RESP 16; TEMP 36.7; O2SAT 97
== END 2023-04-30 17:34 | disposition home or self-care (01) ==
PROVIDERS: Physician Assistant; Physician Assistant Medical; Emergency Provider Student in an Organized Health Care Education/Training Program; PCP Nurse Practitioner Family
DX: K29.70 Gastritis, unspecified, without bleeding (principal); F17.200 Nicotine dependence, unspecified, uncomplicated; Z71.6 Tobacco abuse counseling; Z79.899 Other long term (current) drug therapy
CPT/HCPCS: 36415; 80048; 80076; 81001; 81025; 83690; 85025; 99283

== ENCOUNTER 2023-05-01 16:11 | Emergency (ER) | payer OTHER, SELFPAY ==
--- NOTE | 2023-05-01 16:15 | ECG_ITS ---
Test Reason : having pvc's Blood Pressure : / mmHG Vent. Rate : 070 BPM Atrial Rate : 070 BPM P-R Int : 138 ms QRS Dur : 080 ms QT Int : 358 ms P-R-T Axes : 068 044 033 degrees QTc Int : 386 ms Normal sinus rhythm Normal ECG When compared with ECG of 24-APR-2023 20:57, Premature supraventricular complexes are no longer Present Referred By: Tiffany Palmer Electronically Signed By:Kuldeep Cheung
[2023-05-01 16:33] VITALS: BP 143/82; PULSE 67; RESP 18; TEMP 36.5; O2SAT 99; BMI 25.8
--- NOTE | 2023-05-01 16:34 | ED.ARRPALP ---
HPI - Arrhythmia/Palpitations General Chief Complaint: Arrhythmia/Palpitations Stated Complaint: states having pvc's Time Seen by Provider: 05/01/23 16:34 Source: patient and old records reviewed Mode of arrival: ambulatory Limitations: no limitations History of Present Illness HPI narrative: 37 yo female with history of anxiety, kidney stones, heart palpitations (hx PVCs and PACs), active smoker who presents to the ER for evaluation of PVCs that she felt at work today. She states the palpitations feel like prior epiosdes of her PVCs. She has been compliant with her propranolol 20 mg BID. She states she continues to smoke and drink caffiene despite the recommendations of her public address technician. She had a Holter for 2 days at home a few months ago with no concerning findings. MD complaint: palpitations Onset (ago): hour(s) Duration: intermittent Severity: moderate Context: occurred during rest and occurred during exertion Arrhythmia history: other (PVC) Related Data Home Medications Medication Instructions Recorded Confirmed hydroxyzine HCl 50 mg tablet 50 mg PO BID PRN anxiety 04/23/23 propranolol 20 mg tablet 20 mg PO TID 04/23/23 Previous Rx's Medication Instructions Recorded lidocaine 5 % topical patch 1 patch topical DAILY PRN pain #30 03/24/23 (Lidoderm) ea gabapentin 100 mg capsule 100 mg PO BID #30 caps 04/19/23 meloxicam 15 mg tablet 15 mg PO DAILY #30 tabs 04/19/23 phenazopyridine 100 mg tablet 100 mg PO Q8H 6 doses #6 tabs 04/25/23 pantoprazole 40 mg tablet,delayed 40 mg PO DAILY #14 tabs 04/30/23 release (Protonix) Allergies Allergy/AdvReac Type Severity Reaction Status Date / Time No Known Allergies Allergy Unknown NOT Verified 04/30/23 15:53 APPLICABLE Review of Systems Review of Systems: CONSTITUTIONAL: Denies weight loss, fever and chills. HEENT: Denies changes in vision and hearing. RESPIRATORY: Denies SOB and cough. CV: + palpitations - CP. GI: Denies abdominal pain, nausea, vomiting and diarrhea. : Denies dysuria and urinary frequency. MSK: Denies myalgia and joint pain. SKIN: Denies rash and pruritus. NEUROLOGICAL: Denies headache and syncope. PSYCHIATRIC: Denies recent changes in mood. + anxiety - depression. All other ROS are negative unless in HPI Yes all other systems are reviewed and are negative [facility] Past Medical History Medical History Anxiety delivery delivered Cholecystectomy planned Heart palpitations Lyme disease Social History Social History Alcohol intake: never Patient Tobacco Use Status: Current everyday Tobacco user Smoked in Last 30 Days: Yes Use of substances other than those prescribed or required for medical reasons: No Advance Directives: No Advance Directives Information Provided: No Patient : No Physical Exam Vital Signs: Vital Signs: Last Vital Signs Temp 97.7 F 05/01/23 16:33 Pulse 71 05/02/23 00:00 Resp 18 05/02/23 00:00 BP 139/80 05/02/23 00:00 Pulse Ox 98 05/02/23 00:00 O2 Del Method Room Air 05/01/23 16:33 BMI result Body Mass Index 25.8 Appearance: Alert. Oriented X3. No acute distress. Head: normocephalic, atraumatic. Eyes: normal inspection Neck: Normal inspection. Neck supple. CVS: Normal heart rate and rhythm. Pulses normal. Respiratory: No respiratory distress. Breath sounds normal. Skin: Skin warm and dry. Normal skin color. Normal skin turgor. No rashes. Extremities: No lower extremity edema. No joint swelling. Neuro/psych: Oriented X 3. grossly normal, nonfocal Course Reevaluation(s) Reevaluation #1: patient was going to be discharged home from triage, however she states she is having anxiety and would like medication for it. no longer taking hydroxyzine because it was not working. to go back into waiting room until treatment room is available and ativan can be administered. Time: 16:57 Reevaluation #2: Patient is doing much better. Her palpitations have dissipated. She still remains anxious. I have prescribed her Ativan orally. She will be discharged to follow-up with a public address technician. I spoke with her regarding a possible cardia mobile device. Time: 03:21 Medical Decision Making Medical Decision Making MDM Narrative: Patient presents with palpitations. Differential diagnosis includes PVCs, PACs, SVT, AFib, atrial flutter. Examination is benign. Initial EKG is no acute ischemic changes and no evidence of cardiac dysrhythmia. She has had PACs and PVCs in the past. Laboratory analysis will be undertaken to rule out anemia or significant electrolyte abnormality. Differential Diagnosis Differential Diagnoses: The differential diagnosis associated with the presentation includes (See above) Admission/Observation Consideration of admission/observation: Escalation of care including admission/observation considered Lab Data MDM Lab Attestation statement: I reviewed the patient's lab results. reviewed labs from yesterday, normal 05/01/23 23:05 05/01/23 23:05 Labs: Lab Results 05/01/23 05/01/23 05/01/23 Range/Units 23:05 23:05 23:05 WBC 9.6 (4.8-10.8) X10*3/uL RBC 4.22 (4.20-5.50) X10*6/uL Hgb 13.0 (12.0-16.0) g/dl Hct 38.9 (37.0-47.0) % MCV 92.2 (80.0-98.0) fL MCH 30.8 (27.0-33.0) pg MCHC 33.4 (31.0-35.0) g/dl RDW 13.2 (11.0-16.0) % Plt Count 195 (160-400) X10*3/uL MPV 11.1 (9.4-12.3) fL Immature Gran % (Auto) 0.2 (0.0-0.4) % Neut % (Auto) 45.1 (45-73) % Lymph % (Auto) 44.6 H (20-40) % [place] % (Auto) 7.6 (2-11) % Eos % (Auto) 1.9 (0-4) % Baso % (Auto) 0.6 (0-2) % Lymph # (Auto) 4.3 (1.2-4.9) X10*3/uL [place] # (Auto) 0.7 (0.1-1.2) X10*3/uL Eos # (Auto) 0.2 (0.0-0.4) X10*3/uL Baso # (Auto) 0.1 (0.0-0.2) X10*3/uL Abs Immat Gran (auto) 0.02 (0.00-0.03) X10*3/uL Absolute Neuts (auto) 4.3 (2.0-8.3) x10*3/uL Absolute Nucleated RBC 0.000 (0.0-0.012) X10*3/uL Nucleated RBC % (auto) 0.0 (0.0-0.2) /100WBC Sodium 139 (135-145) mmol/L Potassium 4.4 (3.3-5.1) mmol/L Chloride 109 H (96-108) mmol/L Carbon Dioxide 25 (22-29) mmol/L Anion Gap 9 L (12-20) BUN 13 (9-16) mg/dL Creatinine 0.77 (0.5-1.4) mg/dL Estim Creat Clear Calc 104.0 Estimated GFR > 60 Random Glucose 106 (60-115) mg/dL Calcium 9.3 (8.4-10.2) mg/dL Total Bilirubin 0.8 (0.0-1.0) mg/dL AST 13 (5-31) U/L ALT 8 (0-31) U/L Alkaline Phosphatase 44 (39-117) U/L Troponin I High Sens < 2.7 (<3.5-17.0) ng/L Total Protein 6.4 L (6.5-8.0) g/dL Albumin 4.0 (3.5-5.0) g/dL Independent Interpretation I performed an independent interpretation of an: EKG Interpretation: EKG with normal sinus rhythm, HR 70 bpm, normal OH interval, normal QTc, no PVCs or PACs External Record Review External record reviewed: Office record Prescription Management I considered prescription management with: Other (Anxiety medication) Chronic Conditions Patient?s care impacted by: Other (Cardiac dysrhythmia) Discharge Plan Discharge Clinical Impression: Heart palpitations, Anxiety Patient Disposition: Home, Self-Care Instructions: Heart Palpitations (DC), Anxiety (ED) Additional Instructions: Your EKG today was normal Your labs yesterday were normal Recommend cutting out caffeine and do your best to quit smoking Follow up with your [facility] Primary care doctor If you develop new or worsening symptoms call 911 or come back to the ER for further evaluation. Consider a [employer] Device. Discuss with your public address technician and primary care doctor. Prescriptions: No Action pantoprazole [Protonix] 40 mg tablet,delayed release (DR/EC) 40 mg PO DAILY Qty: 14 0RF lidocaine [Lidoderm] 5 % adhesive patch,medicated 1 patch topical DAILY MDD remove after 12 hours PRN (Reason: pain) Qty: 30 0RF Rx Instructions: leave on most painful area for up to 12 hrs meloxicam 15 mg tablet 15 mg PO DAILY Qty: 30 0RF gabapentin 100 mg capsule 100 mg PO BID Qty: 30 0RF propranolol 20 mg tablet 20 mg PO TID hydroxyzine HCl 50 mg tablet 50 mg PO BID PRN (Reason: anxiety) phenazopyridine 100 mg tablet 100 mg PO Q8H 0 Days Qty: 6 0RF Referrals: Simi Noland NP [Primary Care Provider] -
[2023-05-01 22:54] VITALS: PULSE 65
[2023-05-01 23:09] LABS: MANUAL DIFF FLAG NO
--- NOTE | 2023-05-01 23:09 | PC.NURSE ---
Assumed care of pt. Pt ambulate dto room under own power, no acute distress. Pt denies complaints at this time, sts has been having increasing PVC and PAC, confirmed by prior EKG's and per PCP. Pt shs PCP told her to come in if they recurred.
[2023-05-01 23:11] LABS: Basophils Absolute Auto 0.1 X10*3/uL (0.0-0.2); Basophils Percent Auto 0.6 % (0-2); Eosinophils Absolute Auto 0.2 X10*3/uL (0.0-0.4); Eosinophils Percent Auto 1.9 % (0-4); Hematocrit 38.9 % (37.0-47.0); Imm Gran Abs Auto 0.02 X10*3/uL (0.00-0.03); Imm Gran Pct Auto 0.2 % (0.0-0.4); Lymphocytes Absolute Auto 4.3 X10*3/uL (1.2-4.9); Lymphocytes Percent Auto 44.6 % (20-40); Mean Corpuscular HGB Conc 33.4 g/dl (31.0-35.0); Mean Corpuscular Hemoglobin 30.8 pg (27.0-33.0); Mean Corpuscular Volume 92.2 fL (80.0-98.0); Mean Platelet Volume 11.1 fL (9.4-12.3); Monocytes Absolute Auto 0.7 X10*3/uL (0.1-1.2); Monocytes Percent Auto 7.6 % (2-11); Neutrophils Absolute Auto 4.3 x10*3/uL (2.0-8.3); Neutrophils Percent Auto 45.1 % (45-73); Platelet Count 195 X10*3/uL (160-400); Red Blood Count 4.22 X10*6/uL (4.20-5.50); Red Cell Distribution Width 13.2 % (11.0-16.0); White Blood Count 9.6 X10*3/uL (4.8-10.8)
[2023-05-01 23:27] LABS: Alanine Aminotransferase 8 U/L (0-31); Alkaline Phosphatase 44 U/L (39-117); Anion Gap 9 (12-20); Aspartate Amino Transferase 13 U/L (5-31); Bilirubin Total 0.8 mg/dL (0.0-1.0); Blood Urea Nitrogen 13 mg/dL (9-16); Calcium 9.3 mg/dL (8.4-10.2); Carbon Dioxide 25 mmol/L (22-29); Chloride 109 mmol/L (96-108); Estimated Glomerular Filt Rate > 60; Glucose Random 106 mg/dL (60-115); Potassium 4.4 mmol/L (3.3-5.1); Sodium 139 mmol/L (135-145); Total Protein 6.4 g/dL (6.5-8.0)
[2023-05-01 23:34] LABS: Troponin-I High Sensitivity < 2.7 ng/L (<3.5-17.0)
[2023-05-02] VITALS: BP 139/80; PULSE 71; RESP 18; O2SAT 98
[2023-05-02] MEDS: LORazepam 2 MG/ML VIAL 1 MG IM (03:33)
--- NOTE | 2023-05-02 03:43 | PC.NURSE ---
The PO ativan that was ordered was when the pt was in the waiting room was not given, per md not to give while in waiting room.
== END 2023-05-02 03:44 | disposition home or self-care (01) ==
PROVIDERS: Emergency Medicine; Emergency Provider Emergency Medicine; PCP Nurse Practitioner Family
DX: R00.2 Palpitations (principal); F41.9 Anxiety disorder, unspecified; F17.200 Nicotine dependence, unspecified, uncomplicated; Z79.899 Other long term (current) drug therapy
CPT/HCPCS: 36415; 80053; 84484; 85025; 93005; 96372; 99284; 99285; J2060

== ENCOUNTER 2023-05-11 17:53 | Emergency (ER) | payer OTHER, SELFPAY ==
[2023-05-11 18:11] VITALS: BP 116/78; PULSE 73; RESP 18; TEMP 36.2; O2SAT 100; BMI 25.2
--- NOTE | 2023-05-11 18:14 | ED_ITS ---
HPI - General Adult General Chief complaint: Weakness Stated complaint: Weakness Time Seen by Provider: 05/11/23 21:11 Source: patient Mode of arrival: ambulatory Limitations: no limitations History of Present Illness HPI narrative: 37-year-old female who presents emergency department for evaluation of weakness. The patient has a history of palpitations secondary to PACs and PVCs. She states that she was on propanolol and this is not improving her symptoms. The patient's service tech/welder discontinued her propanolol and started her on metoprolol tartrate 25 mg twice a day. Patient has been on this medication for 5 days. She states that her palpitations did not improve and she continued to feel skipped beats and a fluttering sensation in her chest. She contacted her service tech/welder and was advised to increase her metoprolol to 50 mg twice a day. She states this morning she took her metoprolol 50 mg and shortly after taking the medication she felt very weak and fatigued therefore she came to emergency department for evaluation. The patient states that she does have a history of anxiety but does not take any medications for her anxiety. She denied fever, chills, rhinorrhea, sore throat, cough, shortness of breath, dyspnea on exertion, lightheadedness or dizziness. Related Data Home Medications Medication Instructions Recorded Confirmed hydroxyzine HCl 50 mg tablet 50 mg PO BID PRN anxiety 04/23/23 propranolol 20 mg tablet 20 mg PO TID 04/23/23 Previous Rx's Medication Instructions Recorded lidocaine 5 % topical patch 1 patch topical DAILY PRN pain #30 03/24/23 (Lidoderm) ea gabapentin 100 mg capsule 100 mg PO BID #30 caps 04/19/23 meloxicam 15 mg tablet 15 mg PO DAILY #30 tabs 04/19/23 phenazopyridine 100 mg tablet 100 mg PO Q8H 6 doses #6 tabs 04/25/23 pantoprazole 40 mg tablet,delayed 40 mg PO DAILY #14 tabs 04/30/23 release (Protonix) Allergies Allergy/AdvReac Type Severity Reaction Status Date / Time No Known Allergies Allergy Unknown NOT Verified 05/11/23 18:15 APPLICABLE Review of Systems Review of Systems: Yes all other systems are reviewed and are negative [facility] Past Medical History Attestation statement: The following information was validated with the patient. [facility] Narrative: Social history: Patient smokes 1 pack of cigarettes per day times 10 years. She denies alcohol use. She denies drug use. Medical History Anxiety delivery delivered Cholecystectomy planned Heart palpitations Lyme disease Social History Social History Alcohol intake: never Patient Tobacco Use Status: Current everyday Tobacco user Advance Directives: No Advance Directives Information Provided: No Physical Exam ED Vital Signs: Vital Signs - 24 hr 05/11/23 18:11 Temperature 97.2 F Pulse Rate 73 Respiratory Rate 18 Blood Pressure 116/78 Pulse Oximetry 100 Oxygen Delivery Method Room Air BMI result Body Mass Index 25.2 Const General: cooperative and no acute distress Orientation/consciousness: oriented to person and oriented to place Limitations: no limitations HENMT Head: Yes normal to inspection, Yes normocephalic and Yes atraumatic Ears: external ears normal General nose exam: Normal external nose present Face and sinus: Yes normal facial exam Mouth: Normal oral and palatal mucosa present Throat: Yes posterior oropharynx normal Eyes General: appearance normal, both eyes and all related structures Pupils: Equal, round and reactive pupils present Neck Neck: Yes normal visual inspection, Yes no lymphadenopathy, Yes trachea midline and Yes supple Chest Chest palpation & inspection: normal inspection of the chest and normal palpation of entire chest wall Resp Effort & Inspection: normal respiratory effort and able to speak in complete sentences Auscultation: clear to auscultation bilaterally Cardio Rate: regular rate Rhythm: regular rhythm Heart sounds: S1 normal heart sound present, S2 normal heart sound present and no murmurs GI Inspection: Yes normal to inspection Palpation (GI): Soft to palpation, nontender and no guarding Auscultation: normal bowel sounds General: Yes no CVA tenderness Back/Spine/Pelvis Back: no CVA tenderness Skin General skin exam: no rashes or lesions noted Neuro General: oriented to person and oriented to place Cranial nerves: Yes CN's II-XII intact bilaterally and Yes Equal, round and reactive pupils present Cognition (Neuro): normal cognition Motor exam (neuro): 5/5 motor strength present throughout Extrem General: Yes normal to inspection Psych Appearance: grossly normal Speech and movement: Normal speech and movement present Affect: normal affect Attitude: cooperative Thought process: Normal thought process present Thought content: Normal thought content present Course Course Course Narrative: RME- 37 year old female presents for evaluation of weakness and ?PVCs. ? Patient reports that her service tech/welder switched her from propranolol to metoprolol last and increased her dose today. She feels as though her PVCs are worse than usual. Plan for labs, EKG. She is well-appearing. Heart rate was 73 in triage Medical Decision Making Medical Decision Making [facility] Narrative: 37-year-old female with history of anxiety, palpitations secondary to PACs and PVCs was on propanolol and recently changed to metoprolol tartrate 25 mg twice a day. Patient was instructed to increase her dose to 50 mg twice a day. She took the higher dose today and shortly after taking the medication she developed fatigue and weakness. Patient's physical examination was unremarkable. Patient's pulse was 70. Laboratory evaluation included a CBC, CMP, lipase, magnesium, TSH. 2215: Patient's laboratory evaluation was unremarkable. At this time, I do not think that the patient's fatigue and weakness was caused by the higher dose of metoprolol I did discuss this with her. Advised her to continue taking this medication to see if it would improve her palpitations. She was also advised to follow-up with her PCP take it treated for anxiety to see if this improves her palpitations. She was given printed and verbal instructions and discharged home. Differential Diagnosis Differential diagnosis includes but is not limited to bradycardia, electrolyte abnormalities, hypothyroidism, hypomagnesemia, viral syndrome, anxiety Lab Data [facility] Lab Attestation statement: I reviewed the patient's lab results. My interpretation patient's laboratory evaluation is as follows: CBC was normal. CMP was normal. TSH was normal. 05/11/23 19:06 05/11/23 19:06 Labs: Lab Results 05/11/23 05/11/23 05/11/23 Range/Units 19:06 19:06 19:06 WBC 9.9 (4.8-10.8) X10*3/uL RBC 4.32 (4.20-5.50) X10*6/uL Hgb 13.5 (12.0-16.0) g/dl Hct 40.5 (37.0-47.0) % MCV 93.8 (80.0-98.0) fL MCH 31.3 (27.0-33.0) pg MCHC 33.3 (31.0-35.0) g/dl RDW 13.2 (11.0-16.0) % Plt Count 193 (160-400) X10*3/uL MPV 11.7 (9.4-12.3) fL Immature Gran % (Auto) 0.3 (0.0-0.4) % Neut % (Auto) 58.2 (45-73) % Lymph % (Auto) 32.3 (20-40) % [place] % (Auto) 7.3 (2-11) % Eos % (Auto) 1.5 (0-4) % Baso % (Auto) 0.4 (0-2) % Lymph # (Auto) 3.2 (1.2-4.9) X10*3/uL [place] # (Auto) 0.7 (0.1-1.2) X10*3/uL Eos # (Auto) 0.2 (0.0-0.4) X10*3/uL Baso # (Auto) 0.0 (0.0-0.2) X10*3/uL Abs Immat Gran (auto) 0.03 (0.00-0.03) X10*3/uL Absolute Neuts (auto) 5.8 (2.0-8.3) x10*3/uL Absolute Nucleated RBC 0.000 (0.0-0.012) X10*3/uL Nucleated RBC % (auto) 0.0 (0.0-0.2) /100WBC Sodium 143 (135-145) mmol/L Potassium 5.0 (3.3-5.1) mmol/L Chloride 109 H (96-108) mmol/L Carbon Dioxide 24 (22-29) mmol/L Anion Gap 15 (12-20) BUN 16 (9-16) mg/dL Creatinine 0.79 (0.5-1.4) mg/dL Estim Creat Clear Calc 93.0 Estimated GFR > 60 Random Glucose 97 (60-115) mg/dL Calcium 10.3 H D (8.4-10.2) mg/dL Magnesium 2.2 (1.6-2.6) mg/dL Total Bilirubin 1.2 H (0.0-1.0) mg/dL AST 15 (5-31) U/L ALT 9 (0-31) U/L Alkaline Phosphatase 47 (39-117) U/L Total Protein 7.0 (6.5-8.0) g/dL Albumin 4.1 (3.5-5.0) g/dL Lipase 18 (8-78) U/L TSH 2.57 (0.32-4.0) uIU/mL Independent Interpretation I performed an independent interpretation of an: EKG Interpretation: My independent interpretation the patient's 12 EKG done at 18:54 hours is as follows: Normal sinus rhythm rate of 64, normal AR interval, QRS duration and QTC interval, no ST segment elevation, no ST segment depression, no significant T-wave abnormalities, no PACs, no PVCs when compared to EKG dated 05/01/2023 there is no significant change. Discharge Plan Discharge Clinical Impression: Heart palpitations, Weakness Patient Disposition: Home, Self-Care Additional Instructions: Your blood counts were normal-you have no anemia which is reassuring. Your blood chemistries were normal as well. Your pulse today was 70. At this time, I do not think that the increased dose of metoprolol was the cause of your weakness. I recommend that you continue taking metoprolol 50 mg twice a day as directed by your service tech/welder. You should consider getting started on medications for your anxiety that you take on a regular basis, this may also help improve your palpitations. Follow-up with your doctor in 2 days. Please return to the emergency department if your symptoms get worse or if you develop any symptoms that are concerning to you. Prescriptions: No Action pantoprazole [Protonix] 40 mg tablet,delayed release (DR/EC) 40 mg PO DAILY Qty: 14 0RF lidocaine [Lidoderm] 5 % adhesive patch,medicated 1 patch topical DAILY MDD remove after 12 hours PRN (Reason: pain) Qty: 30 0RF Rx Instructions: leave on most painful area for up to 12 hrs meloxicam 15 mg tablet 15 mg PO DAILY Qty: 30 0RF gabapentin 100 mg capsule 100 mg PO BID Qty: 30 0RF propranolol 20 mg tablet 20 mg PO TID hydroxyzine HCl 50 mg tablet 50 mg PO BID PRN (Reason: anxiety) phenazopyridine 100 mg tablet 100 mg PO Q8H 0 Days Qty: 6 0RF
--- NOTE | 2023-05-11 18:14 | ECG_ITS ---
Test Reason : weakness Blood Pressure : / mmHG Vent. Rate : 064 BPM Atrial Rate : 064 BPM P-R Int : 130 ms QRS Dur : 084 ms QT Int : 360 ms P-R-T Axes : 080 066 037 degrees QTc Int : 371 ms Normal sinus rhythm Normal ECG When compared with ECG of 01-MAY-2023 16:27, No significant change was found Referred By: Binu Marcum Electronically Signed By:MORENA KEARNS
--- NOTE | 2023-05-11 19:09 | MHC.EDTECH ---
PATIENT BLOOD DRAWN AND SENT TO LAB .EKG DONE WAS READ BY PROVIDER .
[2023-05-11 19:14] LABS: MANUAL DIFF FLAG NO
[2023-05-11 19:15] LABS: Basophils Percent Auto 0.4 % (0-2); Eosinophils Absolute Auto 0.2 X10*3/uL (0.0-0.4); Eosinophils Percent Auto 1.5 % (0-4); Hematocrit 40.5 % (37.0-47.0); Hemoglobin 13.5 g/dl (12.0-16.0); Imm Gran Abs Auto 0.03 X10*3/uL (0.00-0.03); Imm Gran Pct Auto 0.3 % (0.0-0.4); Lymphocytes Absolute Auto 3.2 X10*3/uL (1.2-4.9); Lymphocytes Percent Auto 32.3 % (20-40); Mean Corpuscular HGB Conc 33.3 g/dl (31.0-35.0); Mean Corpuscular Hemoglobin 31.3 pg (27.0-33.0); Mean Corpuscular Volume 93.8 fL (80.0-98.0); Mean Platelet Volume 11.7 fL (9.4-12.3); Monocytes Absolute Auto 0.7 X10*3/uL (0.1-1.2); Monocytes Percent Auto 7.3 % (2-11); Neutrophils Absolute Auto 5.8 x10*3/uL (2.0-8.3); Neutrophils Percent Auto 58.2 % (45-73); Platelet Count 193 X10*3/uL (160-400); Red Blood Count 4.32 X10*6/uL (4.20-5.50); Red Cell Distribution Width 13.2 % (11.0-16.0); White Blood Count 9.9 X10*3/uL (4.8-10.8)
[2023-05-11 19:40] LABS: Alanine Aminotransferase 9 U/L (0-31); Albumin Level 4.1 g/dL (3.5-5.0); Alkaline Phosphatase 47 U/L (39-117); Anion Gap 15 (12-20); Aspartate Amino Transferase 15 U/L (5-31); Bilirubin Total 1.2 mg/dL (0.0-1.0); Blood Urea Nitrogen 16 mg/dL (9-16); Calcium 10.3 mg/dL (8.4-10.2); Carbon Dioxide 24 mmol/L (22-29); Chloride 109 mmol/L (96-108); Estimated Glomerular Filt Rate > 60; Glucose Random 97 mg/dL (60-115); Lipase 18 U/L (8-78); Sodium 143 mmol/L (135-145)
[2023-05-11 19:54] LABS: TSH reflex Free T4 2.57 uIU/mL (0.32-4.0)
[2023-05-11 20:01] LABS: Magnesium 2.2 mg/dL (1.6-2.6)
== END 2023-05-11 22:52 | disposition home or self-care (01) ==
PROVIDERS: Physician Assistant; Emergency Provider Emergency Medicine Emergency Medical Services; PCP Nurse Practitioner Family
DX: R00.2 Palpitations (principal); R53.1 Weakness; Z79.899 Other long term (current) drug therapy; F17.200 Nicotine dependence, unspecified, uncomplicated; Z71.6 Tobacco abuse counseling
CPT/HCPCS: 36415; 80053; 83690; 83735; 84443; 85025; 93005; 99283; 99284

== ENCOUNTER 2023-05-19 13:55 | Emergency (ER) | payer OTHER, SELFPAY ==
--- NOTE | ~2023-05-19 | XR_ITS ---
EXAMINATION: XR CHEST CLINICAL INFORMATION: Palpitations COMPARISON: Chest radiograph from 10/22/2022 TECHNIQUE: Frontal view of the chest was obtained. FINDINGS: Lungs are well-inflated and clear. Trachea is midline in position. No interstitial disease, consolidation or mass. No pleural effusion or pneumothorax. Cardiac silhouette and pulmonary vessels are normal in size. The mediastinum and berenice have normal contour. Cholecystectomy clips in the upper abdomen. Otherwise, the visualized bones and upper abdomen are unremarkable. XR/XR chest 1V IMPRESSION: No acute cardiopulmonary abnormality.
[2023-05-19 14:28] VITALS: BP 107/69; PULSE 80; RESP 16; TEMP 36.6; O2SAT 97; BMI 24.2
--- NOTE | 2023-05-19 14:34 | ECG_ITS ---
Test Reason : palpitations Blood Pressure : / mmHG Vent. Rate : 071 BPM Atrial Rate : 071 BPM P-R Int : 144 ms QRS Dur : 082 ms QT Int : 342 ms P-R-T Axes : 067 060 039 degrees QTc Int : 371 ms Sinus rhythm with occasional Premature ventricular complexes Otherwise normal ECG When compared with ECG of 11-MAY-2023 18:54, Premature ventricular complexes are now Present Referred By: Mikaela Andujar Electronically Signed By:Kuldeep Cheung
--- NOTE | 2023-05-19 14:34 | ED.ARRPALP ---
HPI - Arrhythmia/Palpitations General Chief Complaint: Arrhythmia/Palpitations Stated Complaint: high blood pressure Time Seen by Provider: 05/19/23 15:21 Source: patient and RN notes reviewed Mode of arrival: ambulatory Limitations: no limitations History of Present Illness HPI narrative: This is a 37-year-old female, with a past medical history of chronic frequent PVCs currently being followed by based a [facility] Dr. Malhotra, presenting to the emergency department for increasing skipped beats today. Patient has been seen here multiple times for the same symptoms. Patient was last seen on May 11, 2023 for these symptoms where she had a negative workup and was told to follow-up with cardiology. Patient reports that she was previously on metoprolol 25 mg b.i.d. which was recently increased to 50 mg b.i.d. She states persistent PVCs despite increase in metoprolol. She has been working closely with her felt cutting machine operator who is recommending her to taper off of the metoprolol 50mg BID down to metoprolol 25 mg BID and to add diltiazem next week. Patient has not made this taper as of yet. Patient admits to feeling anxious today, and has not been staying well hydrated. She admits that she smokes 1 pack of cigarettes per day. Patient otherwise denies any fevers, lightheadedness, chills, chest pain, shortness of breath, nausea, vomiting, or diarrhea. No other complaints or concerns at this time. complaint: skipped beats Onset (ago): week(s) Duration: constant Associated symptoms: anxiety Related Data Home Medications Medication Instructions Recorded Confirmed hydroxyzine HCl 50 mg tablet 50 mg PO BID PRN anxiety 04/23/23 propranolol 20 mg tablet 20 mg PO TID 04/23/23 Previous Rx's Medication Instructions Recorded lidocaine 5 % topical patch 1 patch topical DAILY PRN pain #30 03/24/23 (Lidoderm) ea gabapentin 100 mg capsule 100 mg PO BID #30 caps 04/19/23 meloxicam 15 mg tablet 15 mg PO DAILY #30 tabs 04/19/23 phenazopyridine 100 mg tablet 100 mg PO Q8H 6 doses #6 tabs 04/25/23 pantoprazole 40 mg tablet,delayed 40 mg PO DAILY #14 tabs 04/30/23 release (Protonix) Allergies Allergy/AdvReac Type Severity Reaction Status Date / Time No Known Allergies Allergy Unknown NOT Verified 05/19/23 14:28 APPLICABLE Review of Systems Review of Systems: Constitutional: No Weight loss, No Fever, No Chills, No Night Sweats, No Fatigue, No Malaise ENT/Mouth: No Hearing loss, No Ear Pain, No Nasal Congestion, No Sinus Pain, No Hoarseness, No sore throat, No Rhinorrhea, No Swallowing Difficulty Eyes: No Eye Pain, No Swelling, No Redness, No Foreign Body, No Discharge, No Vision Changes Cardiovascular: No Chest Pain, No SOB, No Dyspnea on Exertion, No Orthopnea, No Edema, + Palpitations Respiratory: No Cough, No Sputum, No Wheezing, No Smoke Exposure, No Dyspnea Gastrointestinal: No Nausea, No Vomiting, No Diarrhea, No Constipation, No Abdominal pain, No Hematochezia, No Melena Genitourinary: No irregular bleeding, No Dysuria, No Urinary Frequency, No Hematuria, No Urinary Incontinence/retention, No Urgency, No Flank Pain, No Urinary Flow Changes, No Hesitancy Musculoskeletal: No joint pain, No Myalgias, No Joint Swelling Skin: No Skin Lesions, No rash Neuro: No Weakness, No Numbness, No Paresthesias, No Loss of Consciousness, No Dizziness, No Headache Psych: + Anxiety/Panic, No Depression, No SI/HI/AH/VH, No Social Issues, Heme/Lymph: No Bruising, No Bleeding,No Lymphadenopathy Endocrine: No Polyuria, No Polydipsia, No Temperature Intolerance Yes all other systems are reviewed and are negative Constitutional: Constitutional: Reports as per [facility] Past Medical History Medical History Anxiety delivery delivered Cholecystectomy planned Heart palpitations Lyme disease Social History Social History Alcohol intake: never Patient Tobacco Use Status: Current everyday Tobacco user Smoked in Last 30 Days: Yes Use of substances other than those prescribed or required for medical reasons: No Advance Directives: No Advance Directives Information Provided: No Physical Exam Vital Signs: Vital Signs: Last Vital Signs Temp 97.8 F 05/19/23 14:28 Pulse 63 05/19/23 16:00 Resp 20 05/19/23 16:00 BP 107/69 05/19/23 14:28 Pulse Ox 97 05/19/23 14:28 O2 Del Method Room Air 05/19/23 14:28 BMI result Body Mass Index 24.2 Const: General: cooperative, comfortable and no acute distress Orientation/consciousness: patient oriented x3 Limitations: no limitations HEENT: Other: Oral mucosa is dry Head: Yes normal to inspection, Yes normocephalic and Yes atraumatic Ears: hearing grossly normal bilaterally General nose exam: Normal external nose present Face and sinus: Yes normal facial exam Mouth: Normal oral and palatal mucosa present, oropharynx normal and moist mucous membranes Throat: Yes posterior oropharynx normal Eyes: General: appearance normal, both eyes and all related structures Eyelids: Yes eyelids normal Conjunctivae: conjunctivae normal Sclerae: sclerae normal Pupils: Equal, round and reactive pupils present EOM: EOMs intact bilaterally Neck: Neck: Yes normal visual inspection, Yes full ROM and Yes no lymphadenopathy Lymphatic: no lymphadenopathy noted Chest: Chest palpation & inspection: normal inspection of the chest Resp: Effort & Inspection: normal respiratory effort and able to speak in complete sentences Auscultation: clear to auscultation bilaterally, no crackles, no rales, no rhonchi and no wheezes Cardio: Other: Occasional skip beat auscultated Rate: regular rate Heart sounds: S1 normal heart sound present and S2 normal heart sound present GI: Inspection: Yes normal to inspection Skin: General skin exam: no rashes or lesions noted Trauma: no lacerations or abrasions Wounds: no wounds Neuro: General: patient oriented x3 and moves all extremities Cranial nerves: Yes Equal, round and reactive pupils present Extrem: General: Yes normal to inspection Right upper extremity: normal to inspection Left upper extremity: normal to inspection Right lower extremity: normal to inspection Left lower extremity: normal to inspection Course Course Course Narrative: RME: 37yo F w/PMHx anxiety, PVCs c/o increasing amount of PVCs noted today and noted HR to be 117. denies CP/SOB, weakness EKG, labs, CXR, ordered Full HPI, ROS and PE to be performed by primary ED provider. Reevaluation(s) Reevaluation #1: Patient reports that she feels better but still has some palpitations every now and then. Vital signs remained stable. Patient confirms that she does have follow-up next week and will start diltiazem next week an effort to control her palpitations. She is stable for discharge this time. Time: 17:47 Medications Administered Discontinued Medications Generic Name Dose Route Start Last Admin Trade Name Gerson PRN Reason Stop Dose Admin Sodium Chloride 1,000 mls @ 999 mls/hr 05/19/23 15:38 05/19/23 16:50 Ns IV 05/19/23 16:38 999 mls/hr .Q1H1M ONE Administration Lorazepam 1 mg 05/19/23 15:49 05/19/23 16:55 Lorazepam 2 Mg/Ml Vial IVPUSH 05/19/23 15:50 1 mg ONCE ONE Administration Medical Decision Making Medical Decision Making [facility] Narrative: 37-year-old female, with a past medical history of PACs and PVCs currently followed by [facility], and anxiety, presenting to the emergency department with increasing ?skipped beats since today . Currently taking metoprolol 50mg b.i.d. for the symptoms however states that her symptoms are refractory given increasing dose. Her felt cutting machine operator will be switching her to diltiazem next week. Patient denies any fevers, chills, chest pain or shortness of. Vital signs within normal limits. Plan: Labs including CBC, CMP, lipase, magnesium, TSH ordered, EKG and chest x-ray ordered. Oral mucosa is dry, would benefit from 1 L of IV fluids. Patient requesting medication to treat anxiety. Ativan 1 mg IV ordered. Differential Diagnosis Differential Diagnoses: The differential diagnosis associated with the presentation includes [place], electrolyte abnormality, hyperthyroidism, hypothyroidism, anxiety, bradycardia Lab Data [facility] Lab Attestation statement: I reviewed the patient's lab results. No leukocytosis, H and H stable, electrolytes within normal limits, elevated total bili at 1.6 however has had elevations in the past. Troponin x1 negative, TSH 1.47 05/19/23 14:45 05/19/23 14:45 Labs: Lab Results 05/19/23 05/19/23 05/19/23 Range/Units 14:45 14:45 14:45 WBC 9.7 (4.8-10.8) X10*3/uL RBC 4.45 (4.20-5.50) X10*6/uL Hgb 13.7 (12.0-16.0) g/dl Hct 41.7 (37.0-47.0) % MCV 93.7 (80.0-98.0) fL MCH 30.8 (27.0-33.0) pg MCHC 32.9 (31.0-35.0) g/dl RDW 13.1 (11.0-16.0) % Plt Count 216 (160-400) X10*3/uL MPV 11.1 (9.4-12.3) fL Immature Gran % (Auto) 0.3 (0.0-0.4) % Neut % (Auto) 63.3 (45-73) % Lymph % (Auto) 29.0 (20-40) % [place] % (Auto) 5.6 (2-11) % Eos % (Auto) 1.3 (0-4) % Baso % (Auto) 0.5 (0-2) % Lymph # (Auto) 2.8 (1.2-4.9) X10*3/uL [place] # (Auto) 0.5 (0.1-1.2) X10*3/uL Eos # (Auto) 0.1 (0.0-0.4) X10*3/uL Baso # (Auto) 0.1 (0.0-0.2) X10*3/uL Abs Immat Gran (auto) 0.03 (0.00-0.03) X10*3/uL Absolute Neuts (auto) 6.1 (2.0-8.3) x10*3/uL Absolute Nucleated RBC 0.000 (0.0-0.012) X10*3/uL Nucleated RBC % (auto) 0.0 (0.0-0.2) /100WBC Sodium 143 (135-145) mmol/L Potassium 4.9 (3.3-5.1) mmol/L Chloride 111 H (96-108) mmol/L Carbon Dioxide 25 (22-29) mmol/L Anion Gap 12 (12-20) BUN 10 (9-16) mg/dL Creatinine 0.74 (0.5-1.4) mg/dL Estim Creat Clear Calc 99.3 Estimated GFR > 60 Random Glucose 122 H (60-115) mg/dL Calcium 9.9 (8.4-10.2) mg/dL Magnesium 2.0 (1.6-2.6) mg/dL Total Bilirubin 1.6 H (0.0-1.0) mg/dL Direct Bilirubin 0.4 (0.0-0.5) mg/dL AST 19 (5-31) U/L ALT 9 (0-31) U/L Alkaline Phosphatase 49 (39-117) U/L Troponin I High Sens < 2.7 (<3.5-17.0) ng/L Total Protein 6.8 (6.5-8.0) g/dL Albumin 4.1 (3.5-5.0) g/dL TSH 1.47 (0.32-4.0) uIU/mL Independent Interpretation I performed an independent interpretation of an: EKG Interpretation: EKG sinus rhythm at a ventricular rate of 71 beats per minute, with occasional premature ventricular complexes, IL interval 144, QTC 371, no ST elevation or depression. Similar appearing EKG from previous on May 01, 2023. Radiology Impression Discussion of test interpretation with radiology: I have reviewed the radiologist's reading. Radiologist Impression: EXAMINATION: XR CHEST CLINICAL INFORMATION: Palpitations COMPARISON: Chest radiograph from 10/22/2022 TECHNIQUE: Frontal view of the chest was obtained. FINDINGS: Lungs are well-inflated and clear. Trachea is midline in position. No interstitial disease, consolidation or mass. No pleural effusion or pneumothorax.? Cardiac silhouette and pulmonary vessels are normal in size. The mediastinum and berenice have normal contour. Cholecystectomy clips in the upper abdomen. Otherwise, the visualized bones and upper abdomen are unremarkable. XR/XR chest 1V IMPRESSION: No acute cardiopulmonary abnormality. ? Dictated By: Tr Mckay MD External Record Review External record reviewed: Inpatient record, Office record, Outpatient record, Prior outpatient labs, Prior outpatient radiology, Primary care record and Outside ED record Extensive review of prior emergency department visits regarding similar presentation. Discharge Plan Discharge Clinical Impression: Heart palpitations Patient Disposition: Home, Self-Care Additional Instructions: Your workup performed today was reassuring. Please stop smoking cigarettes as this can worsen your palpitations. Drink plenty of fluids and get plenty of rest. Please follow-up with your felt cutting machine operator regarding this visit. If any new or worsening symptoms occur please return for re-evaluation. Prescriptions: No Action pantoprazole [Protonix] 40 mg tablet,delayed release (DR/EC) 40 mg PO DAILY Qty: 14 0RF lidocaine [Lidoderm] 5 % adhesive patch,medicated 1 patch topical DAILY MDD remove after 12 hours PRN (Reason: pain) Qty: 30 0RF Rx Instructions: leave on most painful area for up to 12 hrs meloxicam 15 mg tablet 15 mg PO DAILY Qty: 30 0RF gabapentin 100 mg capsule 100 mg PO BID Qty: 30 0RF propranolol 20 mg tablet 20 mg PO TID hydroxyzine HCl 50 mg tablet 50 mg PO BID PRN (Reason: anxiety) phenazopyridine 100 mg tablet 100 mg PO Q8H 0 Days Qty: 6 0RF
[2023-05-19 14:49] LABS: MANUAL DIFF FLAG NO
[2023-05-19 14:51] LABS: Basophils Absolute Auto 0.1 X10*3/uL (0.0-0.2); Basophils Percent Auto 0.5 % (0-2); Eosinophils Absolute Auto 0.1 X10*3/uL (0.0-0.4); Eosinophils Percent Auto 1.3 % (0-4); Hematocrit 41.7 % (37.0-47.0); Hemoglobin 13.7 g/dl (12.0-16.0); Imm Gran Abs Auto 0.03 X10*3/uL (0.00-0.03); Imm Gran Pct Auto 0.3 % (0.0-0.4); Lymphocytes Absolute Auto 2.8 X10*3/uL (1.2-4.9); Mean Corpuscular HGB Conc 32.9 g/dl (31.0-35.0); Mean Corpuscular Hemoglobin 30.8 pg (27.0-33.0); Mean Corpuscular Volume 93.7 fL (80.0-98.0); Mean Platelet Volume 11.1 fL (9.4-12.3); Monocytes Absolute Auto 0.5 X10*3/uL (0.1-1.2); Monocytes Percent Auto 5.6 % (2-11); Neutrophils Absolute Auto 6.1 x10*3/uL (2.0-8.3); Neutrophils Percent Auto 63.3 % (45-73); Platelet Count 216 X10*3/uL (160-400); Red Blood Count 4.45 X10*6/uL (4.20-5.50); Red Cell Distribution Width 13.1 % (11.0-16.0); White Blood Count 9.7 X10*3/uL (4.8-10.8)
[2023-05-19 15:11] LABS: Alanine Aminotransferase 9 U/L (0-31); Albumin Level 4.1 g/dL (3.5-5.0); Alkaline Phosphatase 49 U/L (39-117); Anion Gap 12 (12-20); Aspartate Amino Transferase 19 U/L (5-31); Bilirubin Direct 0.4 mg/dL (0.0-0.5); Bilirubin Total 1.6 mg/dL (0.0-1.0); Blood Urea Nitrogen 10 mg/dL (9-16); Calcium 9.9 mg/dL (8.4-10.2); Carbon Dioxide 25 mmol/L (22-29); Chloride 111 mmol/L (96-108); Creatinine Clr Calc Pharmacy 99.3; Estimated Glomerular Filt Rate > 60; Glucose Random 122 mg/dL (60-115); Potassium 4.9 mmol/L (3.3-5.1); Sodium 143 mmol/L (135-145); Total Protein 6.8 g/dL (6.5-8.0)
[2023-05-19 15:23] LABS: Troponin-I High Sensitivity < 2.7 ng/L (<3.5-17.0)
[2023-05-19 15:25] LABS: TSH reflex Free T4 1.47 uIU/mL (0.32-4.0)
[2023-05-19 16:00] VITALS: PULSE 63; RESP 20
[2023-05-19] MEDS: 0.9 % Sodium Chloride 1,000 ML 999 ML IV (16:50)
[2023-05-19] MEDS: LORazepam 2 MG/ML VIAL 1 MG IVPUSH (16:55)
== END 2023-05-19 18:02 | disposition home or self-care (01) ==
PROVIDERS: Physician Assistant; Emergency Provider Emergency Medicine
DX: R00.2 Palpitations (principal); Z79.899 Other long term (current) drug therapy; F17.210 Nicotine dependence, cigarettes, uncomplicated
CPT/HCPCS: 36415; 71045; 80048; 80076; 83735; 84443; 84484; 85025; 93005; 96361; 96374; 99284; 99285; J2060

== ENCOUNTER 2023-06-02 11:08 | Outpatient (REF) | payer OTHER, SELFPAY ==
--- NOTE | ~2023-06-02 | US_ITS ---
EXAMINATION: US RETROPERITONEAL COMPLETE (RENAL) CLINICAL INFORMATION: Abdominal pain. COMPARISON: Ultrasound renal 04/23/2023. TECHNIQUE: Real-time imaging of the kidneys and bladder. FINDINGS: RIGHT KIDNEY: 11.3 x 3.4 x 5.1 cm (SAG x AP x TRV). The kidney is normal in size, contour, and echogenicity. Renal cortical thickness is normal. No calculi or focal parenchymal lesions. No hydronephrosis. Incidentally noted extrarenal pelvis. LEFT KIDNEY: 11.8 x 4.8 x 4.7 cm (SAG x AP x TRV). The kidney is normal in size, contour, and echogenicity. Renal cortical thickness is normal. No calculi or focal parenchymal lesions. Pelviectasis without lilliana hydronephrosis. BLADDER: Well distended and normal. Bilateral ureteral jets are demonstrated. Prevoid bladder volume is 308 mL. Postvoid bladder volume is 13.0 mL. US/US retroperitoneal comp IMPRESSION: Left renal pelviectasis without lilliana hydronephrosis. No nephrolithiasis identified..
== END 2023-06-02 11:09 | disposition home or self-care (01) ==
LOC: HO.US 11:08
PROVIDERS: Visit Provider Nurse Practitioner Family
DX: N20.0 Calculus of kidney (principal); R10.9 Unspecified abdominal pain
CPT/HCPCS: 76770

== ENCOUNTER 2023-06-14 13:27 | Emergency (ER) | payer OTHER, SELFPAY ==
--- NOTE | ~2023-06-14 | CT_ITS ---
CT HEAD WITHOUT CONTRAST CLINICAL HISTORY: Headache TECHNIQUE: CT of the brain was performed from the skull base through the vertex using a routine non-contrast protocol. All CT exams at this location are performed using dose optimization techniques as appropriate to a performed exam including at least one of the following: * Automated exposure control * Adjustment of the mA and/or kV according to patient size (this includes techniques or standardized protocols for targeted exams where dose is matched to indication / reason for exam; i/e/ extremities or head) * Use of iterative reconstructive technique DLP: 559 mGy-cm COMPARISON: 12/04/2022 RESULTS: There is no evidence of acute intracranial hemorrhage, acute large vessel infarct, midline shift or mass effect. The milligan-white differentiation is preserved. The ventricles and sulci are within normal limits in size and configuration. There is no evidence of hydrocephalus. There are no extraaxial collections. Osseous structures are intact. Paranasal sinuses and mastoid air cells are well aerated. CT/CT head/brain wo IV con IMPRESSION: Unremarkable non-contrast CT of the brain.
[2023-06-14 13:33] VITALS: BP 121/80; PULSE 96; RESP 18; TEMP 36.3; O2SAT 100; BMI 25.5
--- NOTE | 2023-06-14 13:36 | ED.GENADULT ---
HPI - General Adult General Chief complaint: Headache Stated complaint: Headache Time Seen by Provider: 06/14/23 15:16 Source: patient and RN notes reviewed Mode of arrival: ambulatory Limitations: no limitations History of Present Illness HPI narrative: This is a 38-year-old female, with a past medical history palpitations and anxiety, presenting to the emergency department with complaints of intermittent sharp stabbing headaches x1 week. Patient reports that she just return from vacation from [place], and states that while she was on vacation she had ?seconds of sharp pain throughout her head. She states that these pains occur at random. Patient denies any visual changes, eye pain, numbness or tingling, weakness, chest pain, shortness of breath, cough, abdominal pain, nausea, vomiting, or diarrhea. Denies fevers or chills. She has been taking Tylenol for her pain which has provided her with some relief. Denies history of headaches. She denies having any headaches at this moment. Denies any other complaints or concerns at this time. MD complaint: Headache Onset (ago): week(s) Location: head Radiation: non-radiation Quality: stabbing Pain Consistency: constant Relieving factors: none Exacerbating factors: none Associated symptoms: denies other symptoms Treatments prior to arrival: none Related Data Home Medications Medication Instructions Recorded Confirmed hydroxyzine HCl 50 mg tablet 50 mg PO BID PRN anxiety 04/23/23 propranolol 20 mg tablet 20 mg PO TID 04/23/23 Previous Rx's Medication Instructions Recorded lidocaine 5 % topical patch 1 patch topical DAILY PRN pain #30 03/24/23 (Lidoderm) ea gabapentin 100 mg capsule 100 mg PO BID #30 caps 04/19/23 meloxicam 15 mg tablet 15 mg PO DAILY #30 tabs 04/19/23 phenazopyridine 100 mg tablet 100 mg PO Q8H 6 doses #6 tabs 04/25/23 pantoprazole 40 mg tablet,delayed 40 mg PO DAILY #14 tabs 04/30/23 release (Protonix) Allergies Allergy/AdvReac Type Severity Reaction Status Date / Time No Known Allergies Allergy Unknown NOT Verified 06/14/23 13:33 APPLICABLE Review of Systems Review of Systems: Yes all other systems are reviewed and are negative Constitutional: Constitutional: Reports as per HPI ENT: Reports Normal hearing present Neurologic: Reports Normal hearing present and Denies Abnormal speech present [facility] Past Medical History Medical History Anxiety delivery delivered Cholecystectomy planned Heart palpitations Lyme disease Social History Social History Alcohol intake: never Patient Tobacco Use Status: Current everyday Tobacco user Advance Directives: No Advance Directives Information Provided: No Physical Exam ED Vital Signs: Vital Signs - 24 hr 06/14/23 13:33 06/14/23 16:00 Temperature 97.4 F 98.7 F Pulse Rate 96 74 Respiratory Rate 18 16 Blood Pressure 121/80 117/71 Pulse Oximetry 100 100 Oxygen Delivery Method Room Air Room Air BMI result Body Mass Index 25.5 Const General: cooperative, comfortable and no acute distress Orientation/consciousness: patient oriented x3 Limitations: no limitations HENMT Head: Yes normal to inspection, Yes normocephalic and Yes atraumatic Ears: hearing grossly normal bilaterally and TM's normal bilaterally General nose exam: Normal external nose present Face and sinus: Yes normal facial exam Mouth: Normal oral and palatal mucosa present, oropharynx normal and moist mucous membranes Throat: Yes posterior oropharynx normal Eyes General: appearance normal, both eyes and all related structures Eyelids: Yes eyelids normal Conjunctivae: conjunctivae normal Sclerae: sclerae normal Pupils: Equal, round and reactive pupils present EOM: EOMs intact bilaterally Neck Neck: Yes normal visual inspection, Yes full ROM, Yes no lymphadenopathy and Yes no meningeal signs Lymphatic: no lymphadenopathy noted Chest Chest palpation & inspection: normal inspection of the chest Resp Effort & Inspection: normal respiratory effort and able to speak in complete sentences Auscultation: clear to auscultation bilaterally, no crackles, no rales, no rhonchi and no wheezes Cardio Rate: regular rate Rhythm: regular rhythm Heart sounds: S1 normal heart sound present and S2 normal heart sound present GI Inspection: Yes normal to inspection Skin General skin exam: no rashes or lesions noted Trauma: no lacerations or abrasions Wounds: no wounds Neuro General: patient oriented x3, moves all extremities, no meningeal signs and CN's II-XI intact bilaterally Cranial nerves: Yes Equal, round and reactive pupils present, Yes Nystagmus not present, Yes Normal facial strength present, Yes Midline tongue present, Yes Symmetric palate elevation present, Yes Normal hearing present, Yes Ability to bilaterally rotate head present and Yes Ability to bilaterally elevate shoulders present Cognition (Neuro): normal cognition Speech: No Abnormal speech present Gait exam (Neuro): Normal gait present Motor exam (neuro): 5/5 motor strength present throughout, Pronator motor function not present and no tremor noted Extrem General: Yes normal to inspection Right upper extremity: normal to inspection Left upper extremity: normal to inspection Right lower extremity: normal to inspection Left lower extremity: normal to inspection Course Course Course Narrative: RME- 38-year-old female presents for evaluation of intermittent headaches. She reports that she has been getting about 5 frontal headaches daily that last about 3 seconds each. Denies any trauma to the head or neck plan for head CT. The patient reports that she recently returned from [place] where she was on vacation Reevaluation(s) Reevaluation #1: Head CT without any acute findings. Symptoms likely due to atypical migraine. Educated the importance of staying well hydrated and treating symptomatically. Given return precautions any new or worsening symptoms occur. Patient is asymptomatic at this time, vital signs stable, no of normal focal neurologic findings on examination, patient is stable for discharge. Time: 17:42 Medical Decision Making Medical Decision Making [facility] Narrative: 38-year-old female, with a past medical history of anxiety and palpitations, presenting to the emergency department with complaints of headaches x1 week. States that the headaches are sharp and stabbing in nature and that only last for several seconds. On arrival, vital signs stable. Patient is fully neurologically intact. Patient's symptoms likely due to atypical migraine. Differential diagnosis is include migraine versus tension type headache. No red flag headache symptoms. Her neurolgic exam without evidence focal neurologic findings. Plan head CT, urine Differential Diagnosis Differential Diagnoses: The differential diagnosis associated with the presentation includes Atypical migraine, migraine, tension headache, dehydration Admission/Observation Consideration of admission/observation: Escalation of care including admission/observation considered Patient would have been admitted to the hospital had her work up had any findings where hospital admission was appropriate and her clinical presentation warranted hospital admission. Lab Data [facility] Lab Attestation statement: I reviewed the patient's lab results. Negative hCG Labs: Lab Results 06/14/23 Range/Units 14:58 Urine Test NEGATIVE (NEGATIVE) Radiology Impression Discussion of test interpretation with radiology: I have reviewed the radiologist's reading. Radiologist Impression: CT HEAD WITHOUT CONTRAST CLINICAL HISTORY: Headache TECHNIQUE: CT of the brain was performed from the skull base through the vertex using a routine non-contrast protocol. All CT exams at this location are performed using dose optimization techniques as appropriate to a performed exam including at least one of the following: *? Automated exposure control *? Adjustment of the mA and/or kV according to patient size (this includes techniques or standardized protocols for targeted exams where dose is matched to indication / reason for exam; i/e/ extremities or head) *? Use of iterative reconstructive technique DLP: 559 mGy-cm COMPARISON: 12/04/2022 RESULTS: There is no evidence of acute intracranial hemorrhage, acute large vessel infarct, midline shift or mass effect. The milligan-white differentiation is preserved. The ventricles and sulci are within normal limits in size and configuration. There is no evidence of hydrocephalus. There are no extraaxial collections. Osseous structures are intact. Paranasal sinuses and mastoid air cells are well aerated. CT/CT head/brain wo IV con IMPRESSION: Unremarkable non-contrast CT of the brain. Dictated By: Phi Robertson MD Signed By: <Electronically signed by Phi Robertson MD in OV> 06/14/23 1624 DD/ 1354 TD/TT:? Merchandise Adjustment Clerk: Prescription Management I considered prescription management with: Pain Medication Patient declines wanting prescription for Tylenol or Motrin at this time as she has some at home. Discharge Plan Discharge Clinical Impression: Atypical migraine Patient Disposition: Home, Self-Care Instructions: Migraine Headache (ED) Additional Instructions: Please drink plenty of fluids and get plenty of rest. Your head CT was normal today. Please take Tylenol or ibuprofen as needed for symptoms. If any new or worsening symptoms occur, including but not limited to worsening headaches, changes in vision, weakness, or any other concerning symptoms, please return for re-evaluation. If you continue to have your symptoms, you may follow-up with Neurology. Call to make an appointment. Prescriptions: No Action pantoprazole [Protonix] 40 mg tablet,delayed release (DR/EC) 40 mg PO DAILY Qty: 14 0RF lidocaine [Lidoderm] 5 % adhesive patch,medicated 1 patch topical DAILY MDD remove after 12 hours PRN (Reason: pain) Qty: 30 0RF Rx Instructions: leave on most painful area for up to 12 hrs meloxicam 15 mg tablet 15 mg PO DAILY Qty: 30 0RF gabapentin 100 mg capsule 100 mg PO BID Qty: 30 0RF propranolol 20 mg tablet 20 mg PO TID hydroxyzine HCl 50 mg tablet 50 mg PO BID PRN (Reason: anxiety) phenazopyridine 100 mg tablet 100 mg PO Q8H 0 Days Qty: 6 0RF Referrals: [facility] [place] Neuro/Sleep [Provider Group] Interventions: ED Discharge Assessment Last Done: 06/14/23 17:22 Discharge Date/Time: 06/14/23 17:22
[2023-06-14 15:09] LABS: UPreg QC Valid YES; Urine Pregnancy NEGATIVE (NEGATIVE)
[2023-06-14 16:00] VITALS: BP 117/71; PULSE 74; RESP 16; TEMP 37.1; O2SAT 100
== END 2023-06-14 17:22 | disposition home or self-care (01) ==
PROVIDERS: Physician Assistant; Emergency Provider Emergency Medicine; PCP Nurse Practitioner Family
DX: G43.909 Migraine, unspecified, not intractable, without status migrainosus (principal); F17.200 Nicotine dependence, unspecified, uncomplicated; Z79.899 Other long term (current) drug therapy
CPT/HCPCS: 70450; 81025; 99283; 99284

== ENCOUNTER 2023-08-02 11:43 | Outpatient (AMB) | payer OTHER, SELFPAY ==
--- NOTE | 2023-08-02 11:44 | MHC.OFFVIS ---
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 Noland. She has a past medical history of Lyme disease and anxiety. She is being follow-up on today via video telehealth. Of note, patient was seen approximately 3 months ago at which time a retroperitoneal ultrasound was ordered for further assessment evaluation. These results were reviewed with the patient today. Right kidney with no calculi, lesions, and or hydronephrosis. Incidentally noted extrarenal pelvis. Left kidney with no calculi and or lesions. Pelviectasis without lilliana hydronephrosis. The bladder is well distended and normal. Bilateral ureteral jets are demonstrated. Pre void bladder volume is approximately 310 mL. Postvoid bladder volume is approximately 15 mL. When asked patient reports left-sided abdominal pain she had been experiencing has since resolved. She reports to be doing and feeling well. She denies urinary urgency, urinary frequency, incontinence, nocturia, hematuria, dysuria, foul smelling urine, changes to urinary stream, fever, and or chills. She is happy with her current voiding parameters. She discusses having quit smoking approximately 3 months ago. And discusses working at [employer]. She otherwise offers no other issues or concerns at this time. [facility] Medical History Lyme disease Heart palpitations Anxiety Cholecystectomy planned delivery delivered Social History Alcohol intake: never Patient Tobacco Use Status: Current everyday Tobacco user Review of Systems Const Reports as per HPI Eyes Reports no additional complaints ENT Reports no additional complaints Card Details: follows Cardiology for hx of palpitations Resp Reports no additional complaints GI Reports no additional complaints Reports as per HPI Musc Reports no additional complaints Neuro Reports no additional complaints Psych Details: patient reports a long standing history of anxiety Endo Reports no additional complaints Physical Exam Const General: cooperative, healthy appearing, comfortable, no acute distress, well developed, alert and awake Orientation/consciousness: patient oriented x3 Resp Effort & Inspection: normal respiratory effort and able to speak in complete sentences Neuro General: patient oriented x3 Psych Appearance: grossly normal Mental Status: mental status grossly normal Speech and movement: Clear speech present Affect: normal affect Attitude: cooperative Thought process: Normal thought process present Thought content: Normal thought content present Insight: Good insight present (Psych) Judgement: Good judgement present (Psych) Results Reviewed Results Reviewed: Date of Service: 06/02/23 EXAMINATION: US RETROPERITONEAL COMPLETE (RENAL) . FINDINGS: RIGHT KIDNEY: 11.3 x 3.4 x 5.1 cm (SAG x AP x TRV). The kidney is normal in size, contour, and echogenicity. Renal cortical thickness is normal. No calculi or focal parenchymal lesions. No hydronephrosis. Incidentally noted extrarenal pelvis. LEFT KIDNEY: 11.8 x 4.8 x 4.7 cm (SAG x AP x TRV). The kidney is normal in size, contour, and echogenicity. Renal cortical thickness is normal. No calculi or focal parenchymal lesions. Pelviectasis without lilliana hydronephrosis. BLADDER: Well distended and normal. Bilateral ureteral jets are demonstrated. Prevoid bladder volume is 308 mL. Postvoid bladder volume is 13.0 mL. IMPRESSION: Left renal pelviectasis without lilliana hydronephrosis. No nephrolithiasis identified. Assessment & Plan Assessment & Plan (1) Nephrolithiasis: Code(s): N20.0 - Calculus of kidney (2) Left sided abdominal pain: Code(s): R10.9 - Unspecified abdominal pain Plan Recent retroperitoneal ultrasound results reviewed with the patient today; as noted above. Patient reports left-sided abdominal pain she had been experiencing has since resolved. Patient denies any bothersome urinary issues or concerns at this time. Discussed, educated, and instructed on the importance of drinking plenty of water daily. Reassurance provided on patient quitting smoking; encouraged to continue Will obtain renal ultrasound in 1 year. Follow-up in 1 year with imaging to be completed prior; or sooner with any issues, concerns, and or questions. Orders: Orders US renal BI 364 Days N20.0 - Calculus of kidney Patient Instructions: The patient had an opportunity to ask questions regarding the treatment plan. All questions were answered. Physical exam, labs, and imaging were discussed and reviewed in detail. As well as risks, benefits, and discussion of treatment choices. No major barriers to understanding were identified. The patient expressed understanding and agreement with the above treatment plan. The patient was made aware they should contact our office by phone for worsening of their current condition, the appearance of new symptoms, or with any questions or concerns. Compliance is encouraged with any medications and follow up testing that is ordered. It is a privilege to be allowed the opportunity to participate in? your urological care.? Again, if you have any questions or concerns If you have any questions or concerns please do not hesitate to contact me. The office is [phone]. This note is constructed using voice recognition software. While every effort has been made to ensure accuracy regional clinical research associate errors may have been included. Yours sincerely, [facility] Telehealth Location of provider rendering services: practice address Location of patient: address on file Patient Identification confirmed using: Name, : Yes Telehealth method: video Patient verbally consented to treatment: Yes Patient verbally consented to billing insurance company: Yes Patient informed of any privacy concerns related to visit: Yes Minutes spent on Phone/Video with Pt.: 15 Coding Level of Care Code Tele Est Pt Level 3 (51801) Diagnoses Nephrolithiasis N20.0 Left sided abdominal pain R10.9
== END 2023-08-02 13:06 | disposition home or self-care (01) ==
LOC: HO.HUSH 11:43
PROVIDERS: PCP Nurse Practitioner Family; Visit Provider Nurse Practitioner Family
DX: N20.0 Calculus of kidney (principal); R10.9 Unspecified abdominal pain
CPT/HCPCS: 99213

== ENCOUNTER → 2023-08-02 11:43 | Outpatient (BNVA) | payer OTHER, SELFPAY | PROVIDERS: PCP Nurse Practitioner Family; Visit Provider Nurse Practitioner Family ==

== ENCOUNTER 2023-08-09 12:38 | Emergency (ER) | payer OTHER, SELFPAY ==
[2023-08-09 13:14] VITALS: BP 127/79; PULSE 86; RESP 18; TEMP 36.4; O2SAT 99; BMI 25.0
--- NOTE | 2023-08-09 13:14 | ED.HA ---
HPI - Headache General Chief Complaint: Headache Stated Complaint: headache for couple days Source: patient and old records reviewed Mode of arrival: ambulatory Limitations: no limitations History of Present Illness HPI Narrative: 38 yo female with history of anxiety and palpitations who presents to the ER for evaluation of intermittent 6/10 left sided headaches for the last 1 week. She has been taking ibuprofen with intermittent, brief relief. She saw her PCP last week and they thought it might be due to stress or anxiety. She has an apppointment with Neurology coming up in September. She denies history of migraines but was seen here in May for icepick headache and had normal CT of her head. She denies any photophobia, sensitivity to sound, vision changes, N/V, tinnitus, weakness, numbness or tingling. MD elicited complaint: headache Onset (ago): week(s) (1) Onset description: gradually Location: left Severity: moderate Pain scale (0-10): 6 Quality & Timing: aching Exacerbating factors: none Relieving factors: nothing Associated symptoms: none Treatments prior to arrival: ibuprofen Related Data Home Medications Medication Instructions Recorded Confirmed hydroxyzine HCl 50 mg tablet 50 mg PO BID PRN anxiety 04/23/23 propranolol 20 mg tablet 20 mg PO TID 04/23/23 diltiazem HCl 120 mg 120 mg PO DAILY 08/02/23 capsule,extended release 24 hr Previous Rx's Medication Instructions Recorded lidocaine 5 % topical patch 1 patch topical DAILY PRN pain #30 03/24/23 (Lidoderm) ea gabapentin 100 mg capsule 100 mg PO BID #30 caps 04/19/23 meloxicam 15 mg tablet 15 mg PO DAILY #30 tabs 04/19/23 phenazopyridine 100 mg tablet 100 mg PO Q8H 6 doses #6 tabs 04/25/23 pantoprazole 40 mg tablet,delayed 40 mg PO DAILY #14 tabs 04/30/23 release (Protonix) vysdyasgav-hgupecbqayhyt-ymgbfrzg 1 cap PO Q6H PRN headache #14 caps 08/09/23 50 mg-300 mg-40 mg capsule (Fioricet) Allergies Allergy/AdvReac Type Severity Reaction Status Date / Time No Known Allergies Allergy Unknown NOT Verified 08/09/23 13:16 APPLICABLE Review of Systems Review of Systems: Yes all other systems are reviewed and are negative [facility] Past Medical History Medical History Lyme disease Heart palpitations Anxiety Cholecystectomy planned delivery delivered Social History Social History Alcohol intake: never Patient Tobacco Use Status: Current everyday Tobacco user Advance Directives: No Advance Directives Information Provided: Yes Physical Exam Vital Signs: Vital Signs: Last Vital Signs Temp 97.6 F 08/09/23 13:14 Pulse 86 08/09/23 13:14 Resp 18 08/09/23 13:14 BP 127/79 08/09/23 13:14 Pulse Ox 99 08/09/23 13:14 O2 Del Method Room Air 08/09/23 13:14 BMI result Body Mass Index 25.0 Appearance: Alert. Oriented X3. No acute distress. Head: normocephalic, atraumatic. Eyes: Pupils equal, round and reactive to light. ENT: Pharynx normal. No tonsillar swelling or exudate. Neck: Normal inspection. Neck supple. CVS: Normal heart rate and rhythm. Pulses normal. Respiratory: No respiratory distress. Breath sounds normal. Abdomen: Soft and nontender. +BS x4 Skin: Skin warm and dry. Normal skin color. Normal skin turgor. No rashes. Extremities: No lower extremity edema. No joint swelling. Neuro/psych: Oriented X 3. No motor deficit. No sensory deficit. CN II-XII intact. Normal speech and cognition. Steady gait Medical Decision Making Medical Decision Making MDM Narrative: 38 yo female with history of anxiety and palpitations who presents to the ER for evaluation of intermittent 6/10 left sided headaches for the last 1 week. She appears well, nonfocal neurologically. recent CT head was negative. No other symptoms of URI. Comfortable w/ discharge home with PRN fiorcet. patient agrees w/ plan and will f/u with her PCP and neuro. return precautions were discussed Differential Diagnosis Differential Diagnoses: The differential diagnosis associated with the presentation includes migraine headache, general headache, tension headache, cluster headache, viral illness, stress External Record Review External record reviewed: Outpatient record, Prior outpatient labs and Prior outpatient radiology Prescription Management I considered prescription management with: Pain Medication Chronic Conditions Patient?s care impacted by: Other (anxiety) Critical Care Time Critical Care Time Critical Care Time: No Discharge Plan Discharge Clinical Impression: Headache Qualifiers: Headache type: unspecified Headache chronicity pattern: unspecified pattern Intractability: not intractable Qualified Code(s): R51.9 - Headache, unspecified Patient Disposition: Home, Self-Care Instructions: General Headache (ED) Additional Instructions: Continue ibuprofen 600 mg every 6-8 hours as needed for headache. Take with food. Take the prescribed headache medication as needed for headache. Follow up with your doctor and Neurology as scheduled in September If you develop new or worsening symptoms call 911 or come back to the ER for further evaluation. Prescriptions: New zdzkeqytma-yxfvqlxmtlrvz-jpbm [Fioricet] 50-300-40 mg capsule 1 cap PO Q6H PRN (Reason: headache) Qty: 14 0RF No Action pantoprazole [Protonix] 40 mg tablet,delayed release (DR/EC) 40 mg PO DAILY Qty: 14 0RF lidocaine [Lidoderm] 5 % adhesive patch,medicated 1 patch topical DAILY MDD remove after 12 hours PRN (Reason: pain) Qty: 30 0RF Rx Instructions: leave on most painful area for up to 12 hrs meloxicam 15 mg tablet 15 mg PO DAILY Qty: 30 0RF gabapentin 100 mg capsule 100 mg PO BID Qty: 30 0RF propranolol 20 mg tablet 20 mg PO TID hydroxyzine HCl 50 mg tablet 50 mg PO BID PRN (Reason: anxiety) phenazopyridine 100 mg tablet 100 mg PO Q8H 0 Days Qty: 6 0RF diltiazem HCl 120 mg capsule,extended release 24hr 120 mg PO DAILY Interventions: ED Discharge Assessment Last Done: 08/09/23 13:32 Discharge Date/Time: 08/09/23 13:35
== END 2023-08-09 13:35 | disposition home or self-care (01) ==
PROVIDERS: Emergency Provider Emergency Medicine
DX: R51.9 Headache, unspecified (principal); Z79.899 Other long term (current) drug therapy; F17.200 Nicotine dependence, unspecified, uncomplicated; Z71.6 Tobacco abuse counseling
CPT/HCPCS: 99282; 99283

== ENCOUNTER 2023-08-26 09:56 | Emergency (ER) | payer OTHER, SELFPAY ==
[2023-08-26 10:03] VITALS: BP 127/70; PULSE 99; RESP 16; TEMP 36.8; O2SAT 98; BMI 26.6
--- NOTE | 2023-08-26 11:52 | ED.BACK ---
HPI - Back Pain/Injury General Chief Complaint: Back Pain/Injury Stated Complaint: buttock pain into l leg Time Seen by Provider: 08/26/23 11:43 Source: patient Mode of arrival: ambulatory Limitations: no limitations History of Present Illness HPI Narrative: This is a 38-year-old female history of anxiety, palpitations presenting to the emergency department for evaluation of left sacral/buttocks pain with radiation to left lower extremity just above the knee, atraumatic in nature. Patient states that for the past 2 days pain has been present, unchanged, not improving. Denies any blunt trauma. Denies fevers, chills, numbness, tingling, saddle paresthesias, weakness, urinary/bowel incontinence/retention. No history of IV drug abuse or malignancy . Ambulatory into room from the waiting room without difficulty. Related Data Home Medications Medication Instructions Recorded Confirmed hydroxyzine HCl 50 mg tablet 50 mg PO BID PRN anxiety 04/23/23 propranolol 20 mg tablet 20 mg PO TID 04/23/23 diltiazem HCl 120 mg 120 mg PO DAILY 08/02/23 capsule,extended release 24 hr Previous Rx's Medication Instructions Recorded lidocaine 5 % topical patch 1 patch topical DAILY PRN pain #30 03/24/23 (Lidoderm) ea gabapentin 100 mg capsule 100 mg PO BID #30 caps 04/19/23 meloxicam 15 mg tablet 15 mg PO DAILY #30 tabs 04/19/23 phenazopyridine 100 mg tablet 100 mg PO Q8H 6 doses #6 tabs 04/25/23 pantoprazole 40 mg tablet,delayed 40 mg PO DAILY #14 tabs 04/30/23 release (Protonix) esngvrzjxr-gjlcnzgsratem-poasupwa 1 cap PO Q6H PRN headache #14 caps 08/09/23 50 mg-300 mg-40 mg capsule (Fioricet) cyclobenzaprine 10 mg tablet 10 mg PO BEDTIME PRN muscle spasm 08/26/23 #7 tabs ketorolac 10 mg tablet 10 mg PO TID PRN pain 5 days #15 08/26/23 tabs Allergies Allergy/AdvReac Type Severity Reaction Status Date / Time No Known Allergies Allergy Unknown NOT Verified 08/26/23 10:02 APPLICABLE Review of Systems Review of Systems: Constitutional : No Weight loss, No Fever, No Chills, ENT/Mouth : No Hearing loss, No Ear Pain, No Nasal Congestion, No Sinus Pain, No Hoarseness, No sore throat, No Rhinorrhea, No Swallowing Difficulty Cardiovascular : No Chest Pain, No SOB Respiratory : No Cough, No Dyspnea Gastrointestinal : No Nausea, No Vomiting, No Diarrhea, No abdominal Pain, No Hematochezia, No Melena Genitourinary : No Dysuria, No Urinary Frequency, No Hematuria, No Urinary Incontinence, Musculoskeletal : positive back pain Skin : No Skin Lesions, No rash Neuro : No Weakness, No Numbness, No Paresthesias, no loss of bowel or bladder incontinence, no saddle anesthesia Yes all other systems are reviewed and are negative [facility] Past Medical History Attestation statement: The following information was validated with the patient. Source: old records reviewed and nursing notes reviewed Medical History Lyme disease Heart palpitations Anxiety Cholecystectomy planned delivery delivered Social History Social History Alcohol intake: never Patient Tobacco Use Status: Current everyday Tobacco user Physical Exam Vital Signs: Vital Signs: Last Vital Signs Temp 98.3 F 08/26/23 10:03 Pulse 99 08/26/23 10:03 Resp 16 08/26/23 10:03 BP 127/70 08/26/23 10:03 Pulse Ox 98 08/26/23 10:03 O2 Del Method Room Air 08/26/23 10:03 BMI result Body Mass Index 26.6 vss Appearance: Alert.? Oriented X3.? No acute distress.? Head: Normocephalic, atraumatic, no step-offs or deformities Eyes: Pupils equal, round and reactive to light.? CVS: Normal heart rate and rhythm.? Pulses normal.? Respiratory: No respiratory distress.? Breath sounds normal.? Abdomen: Soft and nontender.? Skin: Skin warm and dry.? Normal skin color.? Normal skin turgor.? Extremities: No lower extremity edema.? No calf ttp. 5/5 strength to bilateral upper and lower extremities 2+ popliteal pulses, dorsalis pedis, anterior tibialis pulses equal bilateral normal strength to bilateral lower extremities sensation distally Back: No midline tenderness, no C-spine tenderness, full range of motion, no CVA tenderness bilaterally Neuro: Oriented X 3.? No motor deficit.? No sensory deficit. CN 2-12 intact . Ambulating with steady gait normal coordination. No saddle paresthesias. Medical Decision Making Medical Decision Making [facility] Narrative: 1153 38-year-old female presents with pain to her left sacral region that radiates into left lower extremity above the knee, atraumatic. No numbness or tingling or red flag symptoms of back pain. Physical examination benign This is likely sciatica versus sacral radiculopathy versus sacral spasm. No signs of cord compression, cauda equina, epidural abscess. Plan will give Toradol, discharge home with supportive measures advised follow-up with PCP. Educated patient on diagnosis and treatment plan, answered all question, patient verbalizes understanding. At this time patient will be discharged home, advised to return with new or worsening symptoms. Educated on worrisome signs and symptoms and when to return. At this time I feel comfortable discharge home. Atraumatic no indication for imaging. No red flag symptoms. Differential Diagnosis Differential Diagnoses: The differential diagnosis associated with the presentation includes This is likely sciatica versus sacral radiculopathy versus sacral spasm. No signs of cord compression, cauda equina, epidural abscess. Tests considered The following testing was considered but not selected: Atraumatic no indication for imaging. No red flag symptoms. Prescription Management I considered prescription management with: Pain Medication Critical Care Time Critical Care Time Critical Care Time: No Discharge Plan Discharge Clinical Impression: Sciatica Patient Disposition: Home, Self-Care Instructions: Sciatica (ED) Additional Instructions: Take your medications as prescribed. If you were prescribed antibiotics today, it is important that you take your medication to their entirety, do not skip any doses, do not finish them early. Follow-up with your primary care provider this week. Return to the emergency department with new or worsening symptoms. Such as fevers, chills, chest pain, shortness of breath, nausea, vomiting, dizziness, headache, vision changes, lethargy In case of emergency call 911 Toradol has been sent to your pharmacy, you tolerated this well in the department. Please take this as prescribed do not take this with ibuprofen, or other NSAIDs, do not mix this with alcohol. Side effects of this medication including increased risk for bleeding and possible kidney injury. Prescriptions: New cyclobenzaprine 10 mg tablet 10 mg PO BEDTIME PRN (Reason: muscle spasm) Qty: 7 0RF ketorolac 10 mg tablet 10 mg PO TID PRN (Reason: pain) 5 Days Qty: 15 0RF No Action pantoprazole [Protonix] 40 mg tablet,delayed release (DR/EC) 40 mg PO DAILY Qty: 14 0RF zgvgqmbroe-paqvkxhjtaeyd-tvjj [Fioricet] 50-300-40 mg capsule 1 cap PO Q6H PRN (Reason: headache) Qty: 14 0RF lidocaine [Lidoderm] 5 % adhesive patch,medicated 1 patch topical DAILY MDD remove after 12 hours PRN (Reason: pain) Qty: 30 0RF Rx Instructions: leave on most painful area for up to 12 hrs meloxicam 15 mg tablet 15 mg PO DAILY Qty: 30 0RF gabapentin 100 mg capsule 100 mg PO BID Qty: 30 0RF propranolol 20 mg tablet 20 mg PO TID hydroxyzine HCl 50 mg tablet 50 mg PO BID PRN (Reason: anxiety) phenazopyridine 100 mg tablet 100 mg PO Q8H 0 Days Qty: 6 0RF diltiazem HCl 120 mg capsule,extended release 24hr 120 mg PO DAILY Referrals: Simi Noland NP [Primary Care Provider] - 2 days
== END 2023-08-26 12:49 | disposition home or self-care (01) ==
PROVIDERS: Emergency Provider Emergency Medicine; PCP Nurse Practitioner Family
DX: M54.42 Lumbago with sciatica, left side (principal)
CPT/HCPCS: 96372; 99283; 99284; J1885

== ENCOUNTER 2023-10-17 08:55 | Emergency (ER) | payer OTHER, SELFPAY ==
[2023-10-17 08:57] VITALS: BP 119/79; PULSE 106; RESP 16; TEMP 36.7; O2SAT 98; BMI 25.8
--- NOTE | 2023-10-17 09:14 | ED.GENADULT ---
HPI - General Adult General Chief complaint: General Medical Stated complaint: Difficulty swallowing 2 days Time Seen by Provider: 10/17/23 09:05 Source: patient Mode of arrival: ambulatory Limitations: no limitations History of Present Illness HPI narrative: 38 year old female wtih pmhx significant for anxiety and frequent PVCs presents to the ED today for evaluation of difficulty swallowing x2 days. Reports intermittent sensation of lump in her throat. She states that this tends to happen when she becomes anxious. Admits that the sensation is occurring more frequently now that she is fixated on it. Denies difficulty swallowing, pain with swallowing or difficulty controlling secretions. She currently takes hydroxyzine twice daily prescribed by her PCP however has not been able to follow up with them recently as they have been on maternity leave. Reports increased stressors surrounding the upcoming holiday. Denies depression. Denies SI/HI. Denies illicit drug use including marijuana. Admits history of smoking tobacco, currently vapes. Endorses sick contacts. Denies headache, dizziness, fever, chills, chest pain, palpitations, shortness of breath, N/V, abd pain, diarrhea or constipation, numbness/tingling/weakness of the extremities. No other complaints or concerns at this time. Related Data Home Medications Medication Instructions Recorded Confirmed hydroxyzine HCl 50 mg tablet 50 mg PO BID PRN anxiety 04/23/23 propranolol 20 mg tablet 20 mg PO TID 04/23/23 diltiazem HCl 120 mg 120 mg PO DAILY 08/02/23 capsule,extended release 24 hr Previous Rx's Medication Instructions Recorded lidocaine 5 % topical patch 1 patch topical DAILY PRN pain #30 03/24/23 (Lidoderm) ea gabapentin 100 mg capsule 100 mg PO BID #30 caps 04/19/23 meloxicam 15 mg tablet 15 mg PO DAILY #30 tabs 04/19/23 phenazopyridine 100 mg tablet 100 mg PO Q8H 6 doses #6 tabs 04/25/23 pantoprazole 40 mg tablet,delayed 40 mg PO DAILY #14 tabs 04/30/23 release (Protonix) snidawflor-rzrbjnnccwoxv-nkwizqgg 1 cap PO Q6H PRN headache #14 caps 08/09/23 50 mg-300 mg-40 mg capsule (Fioricet) cyclobenzaprine 10 mg tablet 10 mg PO BEDTIME PRN muscle spasm 08/26/23 #7 tabs ketorolac 10 mg tablet 10 mg PO TID PRN pain 5 days #15 08/26/23 tabs lorazepam 0.5 mg tablet 0.5 mg PO BEDTIME PRN anxiety #10 10/17/23 tabs Allergies Allergy/AdvReac Type Severity Reaction Status Date / Time No Known Allergies Allergy Unknown NOT Verified 10/17/23 08:57 APPLICABLE Review of Systems Review of Systems: Constitutional: No fever, chills, fatigue, night sweats, weight changes ENT/Mouth: No ear pain, hearing loss, nasal congestion, sinus pain, rhinorrhea, sore throat Eyes: No eye pain, swelling, redness, vision changes, discharge Cardio: No chest pain, palpitations, PRATT, orthopnea, peripheral edema Pulm: No SOB, cough, sputum, wheezing, dyspnea, hemoptysis GI: No nausea, vomiting, hematemesis, abdominal pain, diarrhea, constipation, hematochezia, melena : No irregular bleeding, dysuria, frequency, urgency, hesitancy, hematuria, flank pain MSK: No back pain, neck pain, joint pain, myalgias Skin: No lesions, rashes Neuro: No weakness, numbness, paresthesias, LOC, dizziness, headache Psych: +anxiety, No panic, depression, SI/HI, AH/VH All other systems reviewed and are negative. [facility] Past Medical History Attestation statement: The following information was validated with the patient. Source: old records reviewed and nursing notes reviewed Medical History Lyme disease Heart palpitations Anxiety Cholecystectomy planned delivery delivered Social History Alcohol intake: never Patient Tobacco Use Status: Current everyday Tobacco user Smoked in Last 30 Days: Yes Use of substances other than those prescribed or required for medical reasons: No Advance Directives: No Advance Directives Information Provided: No Patient : No Physical Exam ED Vital Signs: Vital Signs - 24 hr 10/17/23 08:57 10/17/23 09:16 Temperature 98.0 F 98.1 F Pulse Rate 106 H 98 Respiratory Rate 16 18 Blood Pressure 119/79 114/65 Pulse Oximetry 98 100 Oxygen Delivery Method Room Air Room Air BMI result Body Mass Index 25.8 Vital signs initially notable for tachycardia likely secondary to anxiety. Now normalized. Vital signs WNL. Const General: cooperative, healthy appearing, comfortable, no acute distress, alert and awake Orientation/consciousness: patient oriented x3 Limitations: no limitations HENMT Other: + posterior oropharynx without erythema or edema. Uvula midline. No tonsillar exudates. Controlling secretions and speaking in complete sentences. Head: Yes normal to inspection General nose exam: Normal external nose present Eyes General: appearance normal, both eyes and all related structures Conjunctivae: conjunctivae normal Sclerae: sclerae normal Pupils: Equal, round and reactive pupils present Neck Other: + no cervical lymphadenopathy, nontender to palpation. Thyroid normal. No palpable nodules or masses. Neck: Yes normal visual inspection and Yes no lymphadenopathy Thyroid: Thyroid normal Resp Effort & Inspection: normal respiratory effort, able to speak in complete sentences and no respiratory distress Auscultation: clear to auscultation bilaterally Cardio Rate: regular rate Rhythm: regular rhythm Peripheral pulses: radial pulses present Skin General skin exam: no rashes or lesions noted Neuro General: patient oriented x3, gait normal and moves all extremities Cranial nerves: Yes Equal, round and reactive pupils present Extrem General: Yes normal to inspection and Yes capillary refill normal Course Course Course Narrative: 1115- serology negative for strep throat and mono. Patient's symptoms are consistent with anxiety. Her vital signs have remained stable in ED, she is nontoxic appearing and in no acute distress. On re-evaluation of patient she states that she was prescribed lorazepam by her PCP back in April which helped her anxiety. She has been unable to get a refill as her provider has been on maternity leave. I reviewed the prescription monitoring program and see that 28 tabs of lorazepam were prescribed to her on 05/06/23 (5 mo ago). I feel comfortable sending her home with 10 tabs of lorazepam to take as needed for anxiety. I discussed the importance of following up with her primary care doctor or any other physician at her PCPs office. I will also provide her with referral to other primary care offices for follow-up and management of anxiety medications. I also had a discussion with patient regarding cessation of vaping. She expresses understanding. Discussed strict return precautions. All questions answered at this time. Patient is agreeable with disposition stable for discharge. Procedures Smoking Cessation Time Spent Discussing Smoking Cessation w/Patient (min): 10 Patient Acknowledges Need for Cessation: Yes Medical Decision Making Medical Decision Making MDM Narrative: 38 year old female with pmhx significant for anxiety and frequent PVCs presents to the ED today for evaluation of difficulty swallowing x2 days. Vital signs initially notable for tachycardia likely secondary to anxiety. No WNL. Vital signs stable. Posterior oropharynx without erythema or edema, no tonsillar exudates, uvula is midline, controlling secretions and speaking complete sentences. No cervical lymphadenopathy, nontender to palpation. Thyroid WNL. RRR. Lungs CTA bilaterally, no wheezes or stridor. Concern for anxiety vs viral syndrome. Will rule out strep throat and mono however unlikely. Unlikely gerd, esophagitis, Becerra's esophagus, [employer], retropharyngeal abscess, epiglottitis, thyroid nodule/mass. Unlikely arrhythmia, ACS, PE. Plan at this time is to obtain mono and strep swabs with re-evaluation. Differential Diagnosis Differential Diagnoses: The differential diagnosis associated with the presentation includes As above. Admission/Observation Not indicated. Lab Data [facility] Lab Attestation statement: I reviewed the patient's lab results. As above. Labs: Lab Results 10/17/23 Range/Units 09:25 Monoscreen Negative (Negative) S. pyogenes GrpA ALVINO Negative (Negative) External Record Review External record reviewed: Inpatient record Tests considered The following testing was considered but not selected: I considered ordering CT soft tissues neck however there is no palpable mass or nodule, no lymphadenopathy, not warranted. Prescription Management I considered prescription management with: Other (Anxiolytic) Chronic Conditions Patient?s care impacted by: Other (anxiety) Social Determinants Patient?s care significantly limited by Social Determinants of Health including: Other Social Determinant of Health Critical Care Time Critical Care Time Critical Care Time: No Discharge Plan Discharge Clinical Impression: Anxiety Patient Disposition: Home, Self-Care Instructions: How to Stop Smoking (ED), Anxiety (ED), Electronic Cigarettes and Your Health (ED) Additional Instructions: You tested negative for strep throat and mono today. Your symptoms may be consistent with anxiety. You have been given a short supply of lorazepam to take as needed for anxiety. This may make you tired. Do not drive, drink, or operate machinery while taking lorazepam. Please follow-up with your primary care provider regarding your hydroxyzine dose. You may want to discuss possible medication add-on options/ changes. These changes cannot be made in the emergency department as there is no way to follow up with this. Stop vaping. This can make your symptoms worse, seriously harm you, and even kill you. Return to the emergency department if her symptoms persist or worsen despite home therapy. In the case of an emergency call 911. Prescriptions: New lorazepam 0.5 mg tablet 0.5 mg PO BEDTIME PRN (Reason: anxiety) Qty: 10 0RF No Action pantoprazole [Protonix] 40 mg tablet,delayed release (DR/EC) 40 mg PO DAILY Qty: 14 0RF ibbjzgqoof-qqwuexcfihrye-rnon [Fioricet] 50-300-40 mg capsule 1 cap PO Q6H PRN (Reason: headache) Qty: 14 0RF lidocaine [Lidoderm] 5 % adhesive patch,medicated 1 patch topical DAILY MDD remove after 12 hours PRN (Reason: pain) Qty: 30 0RF Rx Instructions: leave on most painful area for up to 12 hrs meloxicam 15 mg tablet 15 mg PO DAILY Qty: 30 0RF gabapentin 100 mg capsule 100 mg PO BID Qty: 30 0RF cyclobenzaprine 10 mg tablet 10 mg PO BEDTIME PRN (Reason: muscle spasm) Qty: 7 0RF ketorolac 10 mg tablet 10 mg PO TID PRN (Reason: pain) 5 Days Qty: 15 0RF propranolol 20 mg tablet 20 mg PO TID hydroxyzine HCl 50 mg tablet 50 mg PO BID PRN (Reason: anxiety) phenazopyridine 100 mg tablet 100 mg PO Q8H 0 Days Qty: 6 0RF diltiazem HCl 120 mg capsule,extended release 24hr 120 mg PO DAILY Referrals: Simi Noland NP [Primary Care Provider] - Stand Alone Forms: Work/School Release
[2023-10-17 09:16] VITALS: BP 114/65; PULSE 98; RESP 18; TEMP 36.7; O2SAT 100
--- NOTE | 2023-10-17 09:19 | PC.NURSE ---
a&ox3, vss and up to date at this time. pt speaking w/ provider. pt verbalizing difficulty swallowing x 2 days. states that she thinks it is an anxiety episode. denies fever/chills/sore throat at this time. non-tender upon palpation. call garcia placed within reach.
--- NOTE | 2023-10-17 09:28 | PC.NURSE ---
labs/swabs obtained and sent to lab.
[2023-10-17 09:39] LABS: IDNOW Serial# 08D9AD1C; Strep A Nucleic Acid Negative (Negative)
[2023-10-17 10:55] LABS: Monotest Negative (Negative)
== END 2023-10-17 11:24 | disposition home or self-care (01) ==
PROVIDERS: Physician Assistant Medical; Emergency Provider Emergency Medicine; PCP Nurse Practitioner Family
DX: R13.10 Dysphagia, unspecified (principal); F41.1 Generalized anxiety disorder; F17.200 Nicotine dependence, unspecified, uncomplicated; Z71.6 Tobacco abuse counseling; Z79.899 Other long term (current) drug therapy
CPT/HCPCS: 86308; 87651; 99283; 99284

== ENCOUNTER 2023-10-21 15:35 | Emergency (ER) | payer OTHER, SELFPAY ==
[2023-10-21 16:27] VITALS: BP 137/73; PULSE 91; RESP 17; TEMP 37; O2SAT 100; BMI 25.9
--- NOTE | 2023-10-21 16:27 | ED_ITS ---
HPI - General Adult General Chief complaint: General Medical Stated complaint: trouble swallowing Time Seen by Provider: 10/21/23 21:53 Source: patient, RN notes reviewed and old records reviewed Mode of arrival: ambulatory Limitations: no limitations History of Present Illness HPI narrative: 38-year-old female who denies any past medical history presents for evaluation of ?difficulty swallowing. ? Patient states for the last 3-4 days she has had increased anxiety due to stress. She reports that she has been using her vape ?more than usual. ? She estimates that she goes to 1 cartridge in about a week. Each cartridge supposedly has 8807-5177 ?puffs. She states that sometimes she feels like her mouth is too dry and she cannot swallow. Other time she states she feels like it is ?too moist. ? She states that she has been able to swallow but she is ?scared? and showed. ? She has a history of anxiety and was seen here 4 days ago for similar. She states that she has been taking lorazepam at night which has been helping She states that her hydroxyzine she has been the past have not been helping her anxiety Related Data Home Medications Medication Instructions Recorded Confirmed hydroxyzine HCl 50 mg tablet 50 mg PO BID PRN anxiety 04/23/23 propranolol 20 mg tablet 20 mg PO TID 04/23/23 diltiazem HCl 120 mg 120 mg PO DAILY 08/02/23 capsule,extended release 24 hr Previous Rx's Medication Instructions Recorded lidocaine 5 % topical patch 1 patch topical DAILY PRN pain #30 03/24/23 (Lidoderm) ea gabapentin 100 mg capsule 100 mg PO BID #30 caps 04/19/23 meloxicam 15 mg tablet 15 mg PO DAILY #30 tabs 04/19/23 phenazopyridine 100 mg tablet 100 mg PO Q8H 6 doses #6 tabs 04/25/23 pantoprazole 40 mg tablet,delayed 40 mg PO DAILY #14 tabs 04/30/23 release (Protonix) figcfgzgiq-sntnlfrftdojz-yttzqiqs 1 cap PO Q6H PRN headache #14 caps 08/09/23 50 mg-300 mg-40 mg capsule (Fioricet) cyclobenzaprine 10 mg tablet 10 mg PO BEDTIME PRN muscle spasm 08/26/23 #7 tabs ketorolac 10 mg tablet 10 mg PO TID PRN pain 5 days #15 08/26/23 tabs lorazepam 0.5 mg tablet 0.5 mg PO BEDTIME PRN anxiety #10 10/17/23 tabs Allergies Allergy/AdvReac Type Severity Reaction Status Date / Time No Known Allergies Allergy Unknown NOT Verified 10/17/23 08:57 APPLICABLE Review of Systems Constitutional: Constitutional: Denies chills and Denies fever(s) ENT: Denies vertigo, Denies dizziness, Denies sore throat and Reports other (Reports difficulty swallowing but no pain with swallowing) Cardiovascular: Cardiovascular: Denies chest pain and Denies dyspnea Respiratory: Respiratory: Denies cough and Denies dyspnea Gastrointestinal: Gastrointestinal: Denies abdominal pain, Denies nausea and Denies vomiting Musculoskeletal: Musculoskeletal: Denies back pain Integumentary/Breasts: Skin/Breast: Denies rash Neurologic: Denies vertigo and Denies dizziness PMFSH Past Medical History Medical History Lyme disease Heart palpitations Anxiety Cholecystectomy planned delivery delivered Social History Social History Alcohol intake: never Patient Tobacco Use Status: Current everyday Tobacco user Advance Directives: No Advance Directives Information Provided: No Physical Exam ED Vital Signs: Vital Signs - 24 hr 10/21/23 16:27 Temperature 98.6 F Pulse Rate 91 Respiratory Rate 17 Blood Pressure 137/73 Pulse Oximetry 100 Oxygen Delivery Method Room Air BMI result Body Mass Index 25.9 Const General: healthy appearing, comfortable, no acute distress, alert and awake Nutritional Appearance: well nourished Orientation/consciousness: patient oriented x3 HENMT Head: Yes normocephalic and Yes atraumatic Throat: Yes posterior oropharynx normal Eyes Eyelids: Yes eyelids normal Conjunctivae: conjunctivae normal Sclerae: sclerae normal Corneas: corneas normal Pupils: Equal, round and reactive pupils present EOM: EOMs intact bilaterally Neck Neck: Yes full ROM, Yes no lymphadenopathy and No anterior neck swelling Resp Effort & Inspection: normal respiratory effort, able to speak in complete sentences, no audible wheezes and not labored Auscultation: clear to auscultation bilaterally Skin General skin exam: elasticity normal Neuro General: patient oriented x3 Cranial nerves: Yes Equal, round and reactive pupils present and Yes Bilaterally intact EOM present Cognition (Neuro): normal cognition Extrem Other: Moving all extremities well without any obvious deformities Course Course Course Narrative: This is a rapid medical exam: Additional HPI, ROS, PE not included below will be deferred to primary provider. Patient is a 38-year-old female with history of anxiety, lyme disease presenting to the emergency department [facility] complaint of dry mouth and difficulty swallowing for the past few days. Denies sore throat or swelling. Managing secretions without difficulty in triage. States she smokes a vape pen and has been smoking more than normal lately. Denies fevers. Patient seen here on 10/17 for similar symptoms. Plan: swab for flu/covid Medical Decision Making Medical Decision Making MDM Narrative: 38-year-old female presents for evaluation of what she describes as ?difficulty swallowing. ? Patient has no evidence of erythema, edema to the retropharynx. There is no anterior neck swelling or swollen glands/lymphadenopathy. Her symptoms are most consistent with anxiety which was discussed with her. The patient is using her ?vape pen approximately 4 times more than recommended. Patient was advised to decrease the amount of vape usage Differential Diagnosis Differential Diagnoses: The differential diagnosis associated with the presentation includes Anxiety Pharyngitis Viral syndrome Achalasia Lab Data Labs: Lab Results 10/21/23 Range/Units 16:49 COVID-19 ([facility]AN[facility]) Negative (Negative) COVID-19 Clin Com See Note Influenza Type A (ALVINO) Negative (Negative) Influenza Type B (ALVINO) Negative (Negative) Influenza A & B Note See Note Discharge Plan Discharge Clinical Impression: Anxiety Patient Disposition: Home, Self-Care Instructions: Anxiety (ED) Additional Instructions: Your symptoms are most likely related to anxiety. You may continue using the lorazepam at night as needed for anxiety I recommend that you try to cut your vaping use by at least 50% S this is likely contributing to worsening symptoms Follow-up with your primary doctor Prescriptions: No Action pantoprazole [Protonix] 40 mg tablet,delayed release (DR/EC) 40 mg PO DAILY Qty: 14 0RF ozjuhvxhde-mdyfukxwhkotm-wbnh [Fioricet] 50-300-40 mg capsule 1 cap PO Q6H PRN (Reason: headache) Qty: 14 0RF lidocaine [Lidoderm] 5 % adhesive patch,medicated 1 patch topical DAILY MDD remove after 12 hours PRN (Reason: pain) Qty: 30 0RF Rx Instructions: leave on most painful area for up to 12 hrs meloxicam 15 mg tablet 15 mg PO DAILY Qty: 30 0RF gabapentin 100 mg capsule 100 mg PO BID Qty: 30 0RF cyclobenzaprine 10 mg tablet 10 mg PO BEDTIME PRN (Reason: muscle spasm) Qty: 7 0RF ketorolac 10 mg tablet 10 mg PO TID PRN (Reason: pain) 5 Days Qty: 15 0RF lorazepam 0.5 mg tablet 0.5 mg PO BEDTIME PRN (Reason: anxiety) Qty: 10 0RF propranolol 20 mg tablet 20 mg PO TID hydroxyzine HCl 50 mg tablet 50 mg PO BID PRN (Reason: anxiety) phenazopyridine 100 mg tablet 100 mg PO Q8H 0 Days Qty: 6 0RF diltiazem HCl 120 mg capsule,extended release 24hr 120 mg PO DAILY
[2023-10-21 17:23] LABS: COVID-19 Test Negative (Negative); IDNOW Serial# 9DB6401D; IDNOW Serial# BCCEAD1C; Influenza A Negative (Negative); Influenza B2 Negative (Negative)
== END 2023-10-21 22:45 | disposition home or self-care (01) ==
PROVIDERS: Registered Nurse Emergency; Emergency Provider Emergency Medicine; PCP Nurse Practitioner Family
DX: R13.10 Dysphagia, unspecified (principal); F41.1 Generalized anxiety disorder; F43.0 Acute stress reaction; F17.200 Nicotine dependence, unspecified, uncomplicated; Z11.52 Encounter for screening for COVID-19; Z20.822 Contact with and (suspected) exposure to COVID-19; Z79.899 Other long term (current) drug therapy; Z71.6 Tobacco abuse counseling
CPT/HCPCS: 87502; 87635; 99282; 99283

== ENCOUNTER 2023-11-03 09:12 | Emergency (ER) | payer OTHER, SELFPAY ==
[2023-11-03 09:17] VITALS: BP 119/76; PULSE 74; RESP 18; TEMP 36.6; O2SAT 100; BMI 26.6
--- NOTE | 2023-11-03 09:40 | ED_ITS ---
HPI - General Adult General Chief complaint: General Medical Stated complaint: Difficulty swallowing Time Seen by Provider: 11/03/23 09:40 Source: patient Mode of arrival: ambulatory Limitations: no limitations History of Present Illness HPI narrative: Patient is a 38 year old assigned female at with a history of anxiety presenting to the emergency department today with increased difficulty swallowing. Patient states that she is able to swallow but she feels the need to do it multiple times to get whatever it is, down. Patient states that she feels as though it is getting caught in the middle of her throat. Patient states that she has a PCP appointment tomorrow and has not seen a GI specialist. Patient denies any dizziness, lightheadedness, abdominal pain, nausea, vomiting, fever, chills, blurry vision, double vision, loss of vision, chest pain, difficulty breathing, shortness of breath, back pain, night sweats, pain with urination, increased urinary frequency, increased urinary urgency, blood in her urine or stool, syncope or a near syncopal episode, recent trauma or falls, bowel incontinence, bladder incontinence, bowel retention, bladder retention, or any other complaints at this time. Onset (ago): week(s) Severity: mild Relieving factors: none Exacerbating factors: none Associated symptoms: denies other symptoms Treatments prior to arrival: none Related Data Home Medications Medication Instructions Recorded Confirmed hydroxyzine HCl 50 mg tablet 50 mg PO BID PRN anxiety 04/23/23 propranolol 20 mg tablet 20 mg PO TID 04/23/23 diltiazem HCl 120 mg 120 mg PO DAILY 08/02/23 capsule,extended release 24 hr Previous Rx's Medication Instructions Recorded lidocaine 5 % topical patch 1 patch topical DAILY PRN pain #30 03/24/23 (Lidoderm) ea gabapentin 100 mg capsule 100 mg PO BID #30 caps 04/19/23 meloxicam 15 mg tablet 15 mg PO DAILY #30 tabs 04/19/23 phenazopyridine 100 mg tablet 100 mg PO Q8H 6 doses #6 tabs 04/25/23 pantoprazole 40 mg tablet,delayed 40 mg PO DAILY #14 tabs 04/30/23 release (Protonix) [id number]-firfxfahcjbmu-ectbwqce 1 cap PO Q6H PRN headache #14 caps 08/09/23 50 mg-300 mg-40 mg capsule (Fioricet) cyclobenzaprine 10 mg tablet 10 mg PO BEDTIME PRN muscle spasm 08/26/23 #7 tabs ketorolac 10 mg tablet 10 mg PO TID PRN pain 5 days #15 08/26/23 tabs lorazepam 0.5 mg tablet 0.5 mg PO BEDTIME PRN anxiety #10 10/17/23 tabs Allergies Allergy/AdvReac Type Severity Reaction Status Date / Time No Known Allergies Allergy Unknown NOT Verified 11/03/23 09:17 APPLICABLE Review of Systems Constitutional: Constitutional: Reports no additional constitutional complaints, Denies chills, Denies fever(s) and Denies night sweats Eyes: Eyes: Reports no additional eye complaints, Denies blurry vision, Denies change in vision, Denies diplopia, Denies eye discharge, Denies loss of vision and Denies eye pain ENT: Reports dysphagia and Denies dizziness Cardiovascular: Cardiovascular: Reports no additional cardiovascular complaints, Denies chest pain, Denies lightheadedness, Denies Loss of Consciousness and Denies dyspnea Respiratory: Respiratory: Reports no additional respiratory complaints and Denies dyspnea Gastrointestinal: Gastrointestinal: Reports no additional gastrointestinal complaints, Denies abdominal pain, Denies melena, Denies hematochezia, Denies change in bowel habits, Denies change in stool character and Reports dysphagia Genitourinary: Genitourinary: Denies hematuria, Denies urinary frequency, Denies dysuria, Denies urinary incontinence, Denies urinary hesitancy and Denies urinary urgency Musculoskeletal: Musculoskeletal: Reports no additional musculoskeletal complaints, Denies numbness and Denies tingling Neurologic: Denies dizziness, Denies loss of vision, Denies numbness and Denies tingling Psychiatric: Psychiatric: Reports no additional psychiatric complaints Endocrine: Endocrine: Reports no additional endocrine complaints Hematologic/Lymphatic: Hematologic/Lymphatic: Reports no additional hematologic/lymphatic complaints Allergic/Immunologic: Allergic/Immunologic: Reports no additional allergic/immunologic complaints PMFSH Past Medical History Attestation statement: The following information was validated with the patient. Source: old records reviewed and nursing notes reviewed Medical History Lyme disease Heart palpitations Anxiety Cholecystectomy planned delivery delivered Social History Social History Alcohol intake: never Patient Tobacco Use Status: Current everyday Tobacco user Advance Directives: No Advance Directives Information Provided: No Physical Exam ED Vital Signs: Vital Signs - 24 hr 11/03/23 09:17 Temperature 97.9 F Pulse Rate 74 Respiratory Rate 18 Blood Pressure 119/76 Pulse Oximetry 100 Oxygen Delivery Method Room Air BMI result Body Mass Index 26.6 Const General: cooperative, no acute distress, alert and awake Nutritional Appearance: well nourished Orientation/consciousness: patient oriented x3 Limitations: no limitations HENMT Head: Yes normal to inspection and Yes atraumatic Ears: hearing grossly normal bilaterally and external ears normal General nose exam: Normal external nose present, no nasal discharge noted and no epistaxis Face and sinus: Yes normal facial exam, No abrasion and No laceration Mouth: Normal oral and palatal mucosa present, no drooling and no muffled voice Eyes General: appearance normal, both eyes and all related structures Periorbital: periorbital findings normal Eyelids: Yes eyelids normal Conjunctivae: conjunctivae normal Pupils: Equal, round and reactive pupils present EOM: EOMs intact bilaterally Neck Neck: Yes normal visual inspection, Yes full ROM and Yes no lymphadenopathy Chest Chest palpation & inspection: normal inspection of the chest Resp Effort & Inspection: normal respiratory effort and able to speak in complete sentences GI Inspection: Yes normal to inspection Neuro General: patient oriented x3 and moves all extremities Cranial nerves: Yes Equal, round and reactive pupils present Cognition (Neuro): normal cognition Motor exam (neuro): 5/5 motor strength present throughout Sensory Exam: Normal double simultaneous stimulation for sensation Coordination: [id number]-[id number] test normal Extrem General: Yes normal to inspection, Yes full ROM and Yes capillary refill normal Psych Appearance: grossly normal Mental Status: mental status grossly normal Affect: normal affect Attitude: cooperative Thought process: Normal thought process present Thought content: Normal thought content present Insight: Good insight present (Psych) Medications Administered Discontinued Medications Generic Name Dose Route Start Last Admin Trade Name Freq PRN Reason Stop Dose Admin Dexamethasone Sodium Phosphate 10 mg 11/03/23 09:46 11/03/23 10:03 Dexamethasone Sod Phosphate 10 Mg/Ml Vial PO 11/03/23 09:47 10 mg ONCE ONE Administration Medical Decision Making Medical Decision Making [facility] Narrative: Patient is a 38 year old assigned female at with a history of anxiety presenting to the emergency department today with a globus sensation. Patient's physical exam was unremarkable. I explained my physical exam findings to the patient. I answered all questions asked by the patient. Patient received PO Decadron. I stressed the importance of the patient taking her medication as prescribed. I stressed the importance of the patient following up with her primary care provider and a GI Specialist. I stressed the importance of the patient returning to the emergency department immediately if her symptoms were to worsen or if she were to develop any dizziness, shortness of breath, difficulty breathing, chest pain, blurry vision, loss of vision, nausea, vomiting, abdominal pain, fever, chills, back pain, or any other complaints. Patient verbalized agreement and understanding with this treatment plan and discharge. Differential Diagnosis Differential Diagnoses: The differential diagnosis associated with the presentation includes Globus sensation Achalasia Anxiety Tests considered The following testing was considered but not selected: CBC, CMP, soft tissue neck x-ray and soft tissue neck CT scan were all considered however, patient's clinical presentation does not warrant that level of work up at this time. I discussed these items with the patient who agreed with current plan of not obtaining any additional testing. Discharge Plan Discharge Clinical Impression: Globus sensation Patient Disposition: Home, Self-Care Additional Instructions: Follow up with your primary care provider and a GI specialist. Return to the emergency department immediately if your symptoms worsen or if you develop any dizziness, shortness of breath, difficulty breathing, chest pain, blurry vision, loss of vision, nausea, vomiting, abdominal pain, fever, chills, back pain, or any other complaints. Prescriptions: No Action pantoprazole [Protonix] 40 mg tablet,delayed release (DR/EC) 40 mg PO DAILY Qty: 14 0RF bmvyqoehei-sozeybvogself-eopb [Fioricet] 50-300-40 mg capsule 1 cap PO Q6H PRN (Reason: headache) Qty: 14 0RF lidocaine [Lidoderm] 5 % adhesive patch,medicated 1 patch topical DAILY MDD remove after 12 hours PRN (Reason: pain) Qty: 30 0RF Rx Instructions: leave on most painful area for up to 12 hrs meloxicam 15 mg tablet 15 mg PO DAILY Qty: 30 0RF gabapentin 100 mg capsule 100 mg PO BID Qty: 30 0RF cyclobenzaprine 10 mg tablet 10 mg PO BEDTIME PRN (Reason: muscle spasm) Qty: 7 0RF ketorolac 10 mg tablet 10 mg PO TID PRN (Reason: pain) 5 Days Qty: 15 0RF lorazepam 0.5 mg tablet 0.5 mg PO BEDTIME PRN (Reason: anxiety) Qty: 10 0RF propranolol 20 mg tablet 20 mg PO TID hydroxyzine HCl 50 mg tablet 50 mg PO BID PRN (Reason: anxiety) phenazopyridine 100 mg tablet 100 mg PO Q8H 0 Days Qty: 6 0RF diltiazem HCl 120 mg capsule,extended release 24hr 120 mg PO DAILY Referrals: [facility] [Provider Group] (Call to establish and follow up with a GI Specialist to further work up your globus sensation. ) Simi Noland NP [Primary Care Provider] - Interventions: ED Discharge Assessment Last Done: 11/03/23 10:07 Discharge Date/Time: 11/03/23 10:09 Print Language: Czech
[2023-11-03] MEDS: dexAMETHasone sod phosphate 10 MG/ML VIAL PO (10:03)
== END 2023-11-03 10:09 | disposition home or self-care (01) ==
PROVIDERS: Emergency Provider Student in an Organized Health Care Education/Training Program; PCP Nurse Practitioner Family
DX: R09.A2 Foreign body sensation, throat (principal)
CPT/HCPCS: 99283; J1100

== ENCOUNTER 2023-11-05 10:52 | Emergency (ER) | payer OTHER, SELFPAY ==
--- NOTE | ~2023-11-05 | CT_ITS ---
EXAMINATION: CT SOFT TISSUE NECK WITH CONTRAST CLINICAL INFORMATION: Difficulty swallowing. COMPARISON: CT brain 06/14/2023. TECHNIQUE: Following the intravenous administration of 100 mL of Omnipaque 350 intravenous contrast, helical imaging was performed in the axial plane with generation of coronal and sagittal reformatted images. This CT examination was performed using dose optimization techniques as appropriate, variously including the following: *Automated exposure control *Adjustment of mA and/or kV according to patient size (this includes techniques or standardized protocols for targeted exams where dose is matched to indication/reason for exam; i.e. extremities or head) *Use of iterative reconstruction technique DLP: 361 mGy-cm FINDINGS: There is a large polyp or retention cyst in left maxillary sinus. The rest of the paranasal sinuses are well aerated. The mastoid sinuses are well aerated as well. The optic globes, optic nerves and the bony orbits are symmetrical and normal. Visualized maxillofacial and mandibular bones are intact. The TM joints are symmetric and normal. The nasopharyngeal, nasal cavity, oropharyngeal and tracheal airway is widely patent. There is normal symmetry of bilateral parotid and submandibular glands without enlargement or focal lesion. There is mild asymmetric appearing left posterior tongue with small left valleculae compared to right. Question prominent minor salivary gland is suspected. There is no narrowing of the airway. The piriform sinuses are symmetrical and normal. The larynx appears unremarkable with normal symmetrical aryepiglottic folds. The parapharyngeal soft tissues are normal. The thyroid lobes are symmetric and normal. The prevertebral and paravertebral soft tissues are normal. The lung apices are clear. A normal three-vessel branch of the aorta is noted. The cervical spine appears unremarkable. CT/CT soft tissue neck w IV con IMPRESSION: No acute process seen in the neck. Minimal asymmetry left vallecula likely hypertrophied minor salivary gland or debris along the base of the tongue.
[2023-11-05 11:04] VITALS: BP 136/81; PULSE 72; RESP 20; TEMP 36.4; O2SAT 100; BMI 26.6
--- NOTE | 2023-11-05 11:08 | ED.GENADULT ---
HPI - General Adult General Chief complaint: General Medical Stated complaint: Diff Swallowing Time Seen by Provider: 11/05/23 11:51 Source: patient Mode of arrival: ambulatory Limitations: no limitations History of Present Illness HPI narrative: Patient is a 38 year old assigned female at with a history of anxiety presenting to the emergency department today with increased difficulty swallowing. Patient states that she is able to swallow but she feels the need to do it multiple times to get whatever it is, down. Patient states that she feels as though it is getting caught in the middle of her throat. Patient states that she saw her PCP who offered to schedule a CT scan but recommended the patient come to the ED to have it done sooner. Patient denies any dizziness, lightheadedness, abdominal pain, nausea, vomiting, fever, chills, blurry vision, double vision, loss of vision, chest pain, difficulty breathing, shortness of breath, back pain, night sweats, pain with urination, increased urinary frequency, increased urinary urgency, blood in her urine or stool, syncope or a near syncopal episode, recent trauma or falls, bowel incontinence, bladder incontinence, bowel retention, bladder retention, or any other complaints at this time. Onset (ago): week(s) Severity: mild Relieving factors: none Exacerbating factors: none Associated symptoms: denies other symptoms Treatments prior to arrival: none Related Data Home Medications Medication Instructions Recorded Confirmed hydroxyzine HCl 50 mg tablet 50 mg PO BID PRN anxiety 04/23/23 propranolol 20 mg tablet 20 mg PO TID 04/23/23 diltiazem HCl 120 mg 120 mg PO DAILY 08/02/23 capsule,extended release 24 hr Previous Rx's Medication Instructions Recorded lidocaine 5 % topical patch 1 patch topical DAILY PRN pain #30 03/24/23 (Lidoderm) ea gabapentin 100 mg capsule 100 mg PO BID #30 caps 04/19/23 meloxicam 15 mg tablet 15 mg PO DAILY #30 tabs 04/19/23 phenazopyridine 100 mg tablet 100 mg PO Q8H 6 doses #6 tabs 04/25/23 pantoprazole 40 mg tablet,delayed 40 mg PO DAILY #14 tabs 04/30/23 release (Protonix) [id number] 1 cap PO Q6H PRN headache #14 caps 08/09/23 50 mg-300 mg-40 mg capsule (Fioricet) cyclobenzaprine 10 mg tablet 10 mg PO BEDTIME PRN muscle spasm 08/26/23 #7 tabs ketorolac 10 mg tablet 10 mg PO TID PRN pain 5 days #15 08/26/23 tabs lorazepam 0.5 mg tablet 0.5 mg PO BEDTIME PRN anxiety #10 10/17/23 tabs Allergies Allergy/AdvReac Type Severity Reaction Status Date / Time No Known Allergies Allergy Unknown NOT Verified 11/03/23 09:17 APPLICABLE Review of Systems Constitutional: Constitutional: Reports no additional constitutional complaints, Denies chills, Denies fever(s) and Denies night sweats Eyes: Eyes: Reports no additional eye complaints, Denies blurry vision, Denies change in vision, Denies diplopia, Denies eye discharge, Denies loss of vision and Denies eye pain ENT: Denies dizziness Comments: difficulty swallowing Cardiovascular: Cardiovascular: Reports no additional cardiovascular complaints, Denies chest pain, Denies lightheadedness, Denies Loss of Consciousness and Denies dyspnea Respiratory: Respiratory: Reports no additional respiratory complaints and Denies dyspnea Gastrointestinal: Gastrointestinal: Reports no additional gastrointestinal complaints, Denies abdominal pain, Denies melena, Denies hematochezia, Denies change in bowel habits and Denies change in stool character Genitourinary: Genitourinary: Denies hematuria, Denies urinary frequency, Denies dysuria, Denies urinary incontinence, Denies urinary hesitancy and Denies urinary urgency Musculoskeletal: Musculoskeletal: Reports no additional musculoskeletal complaints, Denies numbness and Denies tingling Neurologic: Denies dizziness, Denies loss of vision, Denies numbness and Denies tingling Psychiatric: Psychiatric: Reports no additional psychiatric complaints Endocrine: Endocrine: Reports no additional endocrine complaints Hematologic/Lymphatic: Hematologic/Lymphatic: Reports no additional hematologic/lymphatic complaints Allergic/Immunologic: Allergic/Immunologic: Reports no additional allergic/immunologic complaints PMFSH Past Medical History Attestation statement: The following information was validated with the patient. Source: old records reviewed and nursing notes reviewed Medical History Lyme disease Heart palpitations Anxiety Cholecystectomy planned delivery delivered Social History Social History Alcohol intake: never Patient Tobacco Use Status: Current everyday Tobacco user Advance Directives: No Advance Directives Information Provided: No Physical Exam ED Vital Signs: Vital Signs - 24 hr 11/05/23 11:04 11/05/23 12:34 Temperature 97.5 F 98.0 F Pulse Rate 72 66 Respiratory Rate 20 14 Blood Pressure 136/81 114/75 Pulse Oximetry 100 100 Oxygen Delivery Method Room Air Room Air BMI result Body Mass Index 26.6 Const General: cooperative, no acute distress, alert and awake Nutritional Appearance: well nourished Orientation/consciousness: patient oriented x3 Limitations: no limitations HENMT Head: Yes normal to inspection and Yes atraumatic Ears: hearing grossly normal bilaterally and external ears normal General nose exam: Normal external nose present, no nasal discharge noted and no epistaxis Face and sinus: Yes normal facial exam, No abrasion and No laceration Mouth: Normal oral and palatal mucosa present, no drooling and no muffled voice Eyes General: appearance normal, both eyes and all related structures Periorbital: periorbital findings normal Eyelids: Yes eyelids normal Conjunctivae: conjunctivae normal Pupils: Equal, round and reactive pupils present EOM: EOMs intact bilaterally Neck Neck: Yes normal visual inspection, Yes full ROM and Yes no lymphadenopathy Chest Chest palpation & inspection: normal inspection of the chest Resp Effort & Inspection: normal respiratory effort and able to speak in complete sentences GI Inspection: Yes normal to inspection Neuro General: patient oriented x3 and moves all extremities Cranial nerves: Yes Equal, round and reactive pupils present Cognition (Neuro): normal cognition Motor exam (neuro): 5/5 motor strength present throughout Sensory Exam: Normal double simultaneous stimulation for sensation Coordination: [id number] test normal Extrem General: Yes normal to inspection, Yes full ROM and Yes capillary refill normal Psych Appearance: grossly normal Mental Status: mental status grossly normal Affect: normal affect Attitude: cooperative Thought process: Normal thought process present Thought content: Normal thought content present Insight: Good insight present (Psych) Course Course Course Narrative: RME performed by Rowan Mcknight PA-C. Patient is a 38 year old assigned female at presenting to the emergency department with difficulty swallowing. This is patient's 3rd visit for this. Patient was seen by her PCP who recommended she come to the ER for imaging. Labs and imaging ordered. Patient placed back in the waiting room pending room availability and results. Medications Administered Discontinued Medications Generic Name Dose Route Start Last Admin Trade Name Gerson PRN Reason Stop Dose Admin Iohexol 65 ml 11/05/23 13:08 11/05/23 13:08 Iohexol 350 Mg/Ml 100 Ml Infus..Btl IV 11/05/23 13:09 65 ml ONCE ONE Administration Medical Decision Making Medical Decision Making [facility] Narrative: Patient is a 38 year old assigned female at with a history of anxiety presenting to the emergency department today with a globus sensation. Patient's physical exam was unremarkable. Patient's lab work was unremarkable. Patient's CT soft tissue neck showed no evidence of obstruction. I explained my physical exam findings to the patient. I answered all questions asked by the patient. I stressed the importance of the patient taking her medication as prescribed. I stressed the importance of the patient following up with her primary care provider and a GI Specialist. I stressed the importance of the patient returning to the emergency department immediately if her symptoms were to worsen or if she were to develop any dizziness, shortness of breath, difficulty breathing, chest pain, blurry vision, loss of vision, nausea, vomiting, abdominal pain, fever, chills, back pain, or any other complaints. Patient verbalized agreement and understanding with this treatment plan and discharge. Differential Diagnosis Differential Diagnoses: The differential diagnosis associated with the presentation includes Globus sensation Anxiety Admission/Observation Consideration of admission/observation: Escalation of care including admission/observation considered Patient would have been admitted to the hospital had her work up had any findings where hospital admission was appropriate and her clinical presentation warranted hospital admission. Lab Data MDM Lab Attestation statement: I reviewed the patient's lab results. My interpretation of these studies and their corresponding values is that they are grossly normal. 11/05/23 11:12 11/05/23 11:12 Labs: Lab Results 11/05/23 Range/Units 11:12 WBC 8.5 (4.8-10.8) X10*3/uL RBC 4.53 (4.20-5.50) X10*6/uL Hgb 13.9 (12.0-16.0) g/dl Hct 41.3 (37.0-47.0) % MCV 91.2 (80.0-98.0) fL MCH 30.7 (27.0-33.0) pg MCHC 33.7 (31.0-35.0) g/dl RDW 12.5 (11.0-16.0) % Plt Count 219 (160-400) X10*3/uL MPV 11.1 (9.4-12.3) fL Immature Gran % (Auto) 0.4 (0.0-0.4) % Neut % (Auto) 62.0 (45-73) % Lymph % (Auto) 29.0 (20-40) % Hooker % (Auto) 7.3 (2-11) % Eos % (Auto) 0.8 (0-4) % Baso % (Auto) 0.5 (0-2) % Lymph # (Auto) 2.5 (1.2-4.9) X10*3/uL Hooker # (Auto) 0.6 (0.1-1.2) X10*3/uL Eos # (Auto) 0.1 (0.0-0.4) X10*3/uL Baso # (Auto) 0.0 (0.0-0.2) X10*3/uL Abs Immat Gran (auto) 0.03 (0.00-0.03) X10*3/uL Absolute Neuts (auto) 5.3 (2.0-8.3) x10*3/uL Absolute Nucleated RBC 0.000 (0.0-0.012) X10*3/uL Nucleated RBC % (auto) 0.0 (0.0-0.2) /100WBC Sodium 143 (135-145) mmol/L Potassium 5.1 (3.3-5.1) mmol/L Chloride 109 H (96-108) mmol/L Carbon Dioxide 25 (22-29) mmol/L Anion Gap 14 (12-20) BUN 15 (9-16) mg/dL Creatinine 0.79 (0.5-1.4) mg/dL Estim Creat Clear Calc 98.3 Estimated GFR > 60 Random Glucose 99 (60-115) mg/dL Calcium 9.5 (8.4-10.2) mg/dL Magnesium 1.9 (1.6-2.6) mg/dL Total Bilirubin 1.6 H (0.0-1.0) mg/dL AST 13 (5-31) U/L ALT 9 (0-31) U/L Alkaline Phosphatase 45 (39-117) U/L Total Protein 7.4 (6.5-8.0) g/dL Albumin 4.5 (3.5-5.0) g/dL Beta HCG, Quant < 2 mIU/mL Independent Interpretation I performed an independent interpretation of an: CT Scan Interpretation: My interpretation is in agreement with the radiologist's impression of this imaging study. EXAMINATION: CT SOFT TISSUE NECK WITH CONTRAST CLINICAL INFORMATION: Difficulty swallowing. COMPARISON: CT brain 06/14/2023. TECHNIQUE: Following the intravenous administration of 100 mL of Omnipaque 350 intravenous contrast, helical imaging was performed in the axial plane with generation of coronal and sagittal reformatted images. This CT examination was performed using dose optimization techniques as appropriate, variously including the following: *Automated exposure control *Adjustment of mA and/or kV according to patient size (this includes techniques or standardized protocols for targeted exams where dose is matched to indication/reason for exam; i.e. extremities or head) *Use of iterative reconstruction technique DLP: 361 mGy-cm FINDINGS: There is a large polyp or retention cyst in left maxillary sinus. The rest of the paranasal sinuses are well aerated. The mastoid sinuses are well aerated as well. The optic globes, optic nerves and the bony orbits are symmetrical and normal. Visualized maxillofacial and mandibular bones are intact. The TM joints are symmetric and normal. The nasopharyngeal, nasal cavity, oropharyngeal and tracheal airway is widely patent. There is normal symmetry of bilateral parotid and submandibular glands without enlargement or focal lesion. There is mild asymmetric appearing left posterior tongue with small left valleculae compared to right. Question prominent minor salivary gland is suspected. There is no narrowing of the airway. The piriform sinuses are symmetrical and normal. The larynx appears unremarkable with normal symmetrical aryepiglottic folds. The parapharyngeal soft tissues are normal. The thyroid lobes are symmetric and normal. The prevertebral and paravertebral soft tissues are normal. The lung apices are clear. A normal three-vessel branch of the aorta is noted. The cervical spine appears unremarkable. CT/CT soft tissue neck w IV con IMPRESSION: No acute process seen in the neck. Minimal asymmetry left vallecula likely hypertrophied minor salivary gland or debris along the base of the tongue. Dictated By: Paulie Lyons MD Signed By: Electronically signed by Paulie Lyons MD 11/05/23 2816 Radiology Impression Discussion of test interpretation with radiology: I have reviewed the radiologist's reading. Discharge Plan Discharge Clinical Impression: Globus sensation Patient Disposition: Home, Self-Care Additional Instructions: Your CT scan showed no evidence of any obstruction or reason for this sensation in your throat. Follow up with your primary care provider and a GI specialist. Return to the emergency department immediately if your symptoms worsen or if you develop any dizziness, shortness of breath, difficulty breathing, chest pain, blurry vision, loss of vision, nausea, vomiting, abdominal pain, fever, chills, back pain, or any other complaints. Prescriptions: No Action pantoprazole [Protonix] 40 mg tablet,delayed release (DR/EC) 40 mg PO DAILY Qty: 14 0RF [id number] [Fioricet] 50-300-40 mg capsule 1 cap PO Q6H PRN (Reason: headache) Qty: 14 0RF lidocaine [Lidoderm] 5 % adhesive patch,medicated 1 patch topical DAILY MDD remove after 12 hours PRN (Reason: pain) Qty: 30 0RF Rx Instructions: leave on most painful area for up to 12 hrs meloxicam 15 mg tablet 15 mg PO DAILY Qty: 30 0RF gabapentin 100 mg capsule 100 mg PO BID Qty: 30 0RF cyclobenzaprine 10 mg tablet 10 mg PO BEDTIME PRN (Reason: muscle spasm) Qty: 7 0RF ketorolac 10 mg tablet 10 mg PO TID PRN (Reason: pain) 5 Days Qty: 15 0RF lorazepam 0.5 mg tablet 0.5 mg PO BEDTIME PRN (Reason: anxiety) Qty: 10 0RF propranolol 20 mg tablet 20 mg PO TID hydroxyzine HCl 50 mg tablet 50 mg PO BID PRN (Reason: anxiety) phenazopyridine 100 mg tablet 100 mg PO Q8H 0 Days Qty: 6 0RF diltiazem HCl 120 mg capsule,extended release 24hr 120 mg PO DAILY Referrals: [facility] [place] [facility] [Provider Group] (Call to establish and follow up with a GI specialist. ) Simi Noland NP [Primary Care Provider] - Stand Alone Forms: Work/School Release Print Language: [place]
[2023-11-05 11:16] LABS: MANUAL DIFF FLAG NO
[2023-11-05 11:18] LABS: Basophils Percent Auto 0.5 % (0-2); Eosinophils Absolute Auto 0.1 X10*3/uL (0.0-0.4); Eosinophils Percent Auto 0.8 % (0-4); Hematocrit 41.3 % (37.0-47.0); Hemoglobin 13.9 g/dl (12.0-16.0); Imm Gran Abs Auto 0.03 X10*3/uL (0.00-0.03); Imm Gran Pct Auto 0.4 % (0.0-0.4); Lymphocytes Absolute Auto 2.5 X10*3/uL (1.2-4.9); Mean Corpuscular HGB Conc 33.7 g/dl (31.0-35.0); Mean Corpuscular Hemoglobin 30.7 pg (27.0-33.0); Mean Corpuscular Volume 91.2 fL (80.0-98.0); Mean Platelet Volume 11.1 fL (9.4-12.3); Monocytes Absolute Auto 0.6 X10*3/uL (0.1-1.2); Monocytes Percent Auto 7.3 % (2-11); Neutrophils Absolute Auto 5.3 x10*3/uL (2.0-8.3); Platelet Count 219 X10*3/uL (160-400); Red Blood Count 4.53 X10*6/uL (4.20-5.50); Red Cell Distribution Width 12.5 % (11.0-16.0); White Blood Count 8.5 X10*3/uL (4.8-10.8)
[2023-11-05 11:38] LABS: Alanine Aminotransferase 9 U/L (0-31); Albumin Level 4.5 g/dL (3.5-5.0); Alkaline Phosphatase 45 U/L (39-117); Anion Gap 14 (12-20); Aspartate Amino Transferase 13 U/L (5-31); Bilirubin Total 1.6 mg/dL (0.0-1.0); Blood Urea Nitrogen 15 mg/dL (9-16); Calcium 9.5 mg/dL (8.4-10.2); Carbon Dioxide 25 mmol/L (22-29); Chloride 109 mmol/L (96-108); Creatinine Clr Calc Pharmacy 98.3; Estimated Glomerular Filt Rate > 60; Glucose Random 99 mg/dL (60-115); Magnesium 1.9 mg/dL (1.6-2.6); Potassium 5.1 mmol/L (3.3-5.1); Sodium 143 mmol/L (135-145); Total Protein 7.4 g/dL (6.5-8.0)
[2023-11-05 11:46] LABS: HCG Quantitative < 2 mIU/mL
[2023-11-05 12:34] VITALS: BP 114/75; PULSE 66; RESP 14; TEMP 36.7; O2SAT 100
[2023-11-05] MEDS: iohexoL 350 MG/ML 100 ML INFUS..BTL 65 ML IV (13:08)
== END 2023-11-05 16:20 | disposition home or self-care (01) ==
PROVIDERS: Physician Assistant Medical; Emergency Provider Emergency Medicine Emergency Medical Services; PCP Nurse Practitioner Family
DX: R13.10 Dysphagia, unspecified (principal); M54.2 Cervicalgia; F17.210 Nicotine dependence, cigarettes, uncomplicated; Z71.6 Tobacco abuse counseling; Z79.899 Other long term (current) drug therapy
CPT/HCPCS: 36415; 70491; 80053; 83735; 84702; 85025; 99283; 99284; Q9967

== ENCOUNTER 2023-11-09 08:53 | Emergency (ER) | payer OTHER, SELFPAY ==
[2023-11-09 09:06] VITALS: BP 115/80; PULSE 80; RESP 17; TEMP 36.5; O2SAT 97; BMI 25.6
--- NOTE | 2023-11-09 09:17 | ED_ITS ---
HPI - General Adult General Chief complaint: General Medical Stated complaint: nausea loss of juan Time Seen by Provider: 11/09/23 09:16 Source: patient Mode of arrival: ambulatory Limitations: no limitations History of Present Illness HPI narrative: Patient is a 38-year-old female with history of anxiety, Lyme disease, heart palpitations presenting to the emergency department with complaint of nausea for the past 3 days. Reports 1 episode vomiting and some loose stools but denies diarrhea or constipation. Denies hematochezia or melena. States emesis was nonbloody, nonbilious. Denies fevers. Denies any dysuria, hematuria frequency or other urinary symptoms. Denies any abdominal pain. Does report increased belching. States that she recently began taking escitalopram several days ago. MD complaint: nausea Onset (ago): day(s) Location: abdomen Radiation: non-radiation Severity: mild Relieving factors: none Exacerbating factors: none Treatments prior to arrival: none Related Data Home Medications Medication Instructions Recorded Confirmed hydroxyzine HCl 50 mg tablet 50 mg PO BID PRN anxiety 04/23/23 propranolol 20 mg tablet 20 mg PO TID 04/23/23 diltiazem HCl 120 mg 120 mg PO DAILY 08/02/23 capsule,extended release 24 hr Previous Rx's Medication Instructions Recorded lidocaine 5 % topical patch 1 patch topical DAILY PRN pain #30 03/24/23 (Lidoderm) ea gabapentin 100 mg capsule 100 mg PO BID #30 caps 04/19/23 meloxicam 15 mg tablet 15 mg PO DAILY #30 tabs 04/19/23 phenazopyridine 100 mg tablet 100 mg PO Q8H 6 doses #6 tabs 04/25/23 pantoprazole 40 mg tablet,delayed 40 mg PO DAILY #14 tabs 04/30/23 release (Protonix) dhmwzffrrm-mtdmvpzeqvrrl-kvncbdjp 1 cap PO Q6H PRN headache #14 caps 08/09/23 50 mg-300 mg-40 mg capsule (Fioricet) cyclobenzaprine 10 mg tablet 10 mg PO BEDTIME PRN muscle spasm 08/26/23 #7 tabs ketorolac 10 mg tablet 10 mg PO TID PRN pain 5 days #15 08/26/23 tabs lorazepam 0.5 mg tablet 0.5 mg PO BEDTIME PRN anxiety #10 10/17/23 tabs Allergies Allergy/AdvReac Type Severity Reaction Status Date / Time No Known Allergies Allergy Unknown NOT Verified 11/03/23 09:17 APPLICABLE Review of Systems Review of Systems: As per HPI. Yes all other systems are reviewed and are negative Constitutional: Constitutional: Reports as per HPI [facility] Past Medical History Medical History Lyme disease Heart palpitations Anxiety Cholecystectomy planned delivery delivered Social History Social History Alcohol intake: never Patient Tobacco Use Status: Current everyday Tobacco user Advance Directives: No Advance Directives Information Provided: No Physical Exam ED Vital Signs: Vital Signs - 24 hr 11/09/23 09:06 Temperature 97.7 F Pulse Rate 80 Respiratory Rate 17 Blood Pressure 115/80 Pulse Oximetry 97 Oxygen Delivery Method Room Air BMI result Body Mass Index 25.6 Vital signs have been reviewed and appear to be correct. Blood pressure normal. Heart rate normal. Respiratory rate normal. Temperature normal. Oxygen saturation normal. Const General: cooperative, healthy appearing and no acute distress Orientation/consciousness: oriented to person, oriented to place, oriented to time and patient oriented x3 Limitations: no limitations HENMT Head: Yes normocephalic and Yes atraumatic Ears: external ears normal General nose exam: Normal external nose present Face and sinus: Yes face symmetric Mouth: oropharynx normal and moist mucous membranes Throat: Yes uvula midline Eyes Pupils: Equal, round and reactive pupils present Neck Neck: Yes normal visual inspection and Yes supple Resp Effort & Inspection: normal respiratory effort and able to speak in complete sentences Auscultation: clear to auscultation bilaterally Cardio Rate: regular rate Rhythm: regular rhythm Heart sounds: S1 normal heart sound present and S2 normal heart sound present GI Palpation (GI): Soft to palpation and nontender Auscultation: normoactive bowel sounds General: Yes no CVA tenderness Back/Spine/Pelvis Back: no CVA tenderness Skin General skin exam: elasticity normal and turgor normal Neuro General: oriented to person, oriented to place, oriented to time, patient oriented x3, moves all extremities, no focal motor deficits and CN's II-XI intact bilaterally Cranial nerves: Yes Equal, round and reactive pupils present Cognition (Neuro): normal cognition Extrem General: Yes full ROM, Yes no pedal edema and Yes no calf tenderness Psych Mental Status: mental status grossly normal Affect: normal affect Thought process: Normal thought process present Medical Decision Making Medical Decision Making [facility] [place] Narrative: Patient is a 38-year-old female with history of anxiety, Lyme disease, heart palpitations presenting to the emergency department with complaint of nausea for the past 3 days. On exam patient is awake, A+Ox3, VS WNL, afebrile, normal neurological exam without focal deficits, physical exam findings as above. Given reported symptoms and physical exam findings, initial differential includes viral illness, adverse medication reaction, UTI, , GERD. Covid swab negative, no evidence of infection on UA, negative . Discus sed with patient that symptoms could be related to starting escitalopram or could be mild viral illness vs GERD. Advised patient to begin using PRN Maalox and discuss symptoms with her primary provider. Return precautions discussed at bedside. Patient verbalized understanding of and agreement with plan. Differential Diagnosis Differential Diagnoses: The differential diagnosis associated with the presentation includes As per [facility] [place]. Lab Data [facility] [place] Lab Attestation statement: I reviewed the patient's lab results. As per [facility] [place] Labs: Lab Results 11/09/23 Range/Units 09:57 Urine Color Dark Yellow Urine Appearance Cloudy Urine pH 5.5 (5.0-9.0) Ur Specific [place] >= 1.030 H (1.005-1.025) Urine Protein Trace (Neg-Trace) mg/dL Urine Glucose (UA) Negative (Negative) mg/dL Urine Ketones 80 (Negative) mg/dL Urine Blood Negative (Negative) Urine Nitrite Negative (Negative) Ur Leukocyte Esterase Negative (Negative) Urine RBC 0-2 (0-2) /HPF Urine WBC 0-5 (0-5) /HPF Ur Squamous Epith Cells 11-20 (0-2) /HPF Urine Bacteria 1+ (None Seen) Hyaline Casts 3-5 (0-2) /LPF Urine Test NEGATIVE (NEGATIVE) COVID-19 (GHANSHYAM) Negative (Negative) COVID-19 Clin Com See Note External Record Review External record reviewed: Inpatient record, Office record and Outpatient record Discharge Plan Discharge Clinical Impression: Nausea & vomiting Patient Disposition: Home, Self-Care Instructions: Acute Nausea and Vomiting (ED) Additional Instructions: You were evaluated in the emergency department today for nausea and vomiting. You can use Maalox, which is available over the counter, to help manage your symptoms. Avoid spicy or acidic foods. Please follow up with your primary care physician within two days to discuss whether this is related to your new medication. Return to the emergency department if you experience shortness of breath, worsening or uncontrolled abdominal pain, chest pain, light headedness, fainting, persistent nausea and vomiting, bloody vomit or stools, black, tarry stools, or any other concerning symptoms. If symptoms persist please follow up with GI. Prescriptions: No Action pantoprazole [Protonix] 40 mg tablet,delayed release (DR/EC) 40 mg PO DAILY Qty: 14 0RF opnyddrinp-gmienxkrjvmiw-qvid [Fioricet] 50-300-40 mg capsule 1 cap PO Q6H PRN (Reason: headache) Qty: 14 0RF lidocaine [Lidoderm] 5 % adhesive patch,medicated 1 patch topical DAILY MDD remove after 12 hours PRN (Reason: pain) Qty: 30 0RF Rx Instructions: leave on most painful area for up to 12 hrs meloxicam 15 mg tablet 15 mg PO DAILY Qty: 30 0RF gabapentin 100 mg capsule 100 mg PO BID Qty: 30 0RF cyclobenzaprine 10 mg tablet 10 mg PO BEDTIME PRN (Reason: muscle spasm) Qty: 7 0RF ketorolac 10 mg tablet 10 mg PO TID PRN (Reason: pain) 5 Days Qty: 15 0RF lorazepam 0.5 mg tablet 0.5 mg PO BEDTIME PRN (Reason: anxiety) Qty: 10 0RF propranolol 20 mg tablet 20 mg PO TID hydroxyzine HCl 50 mg tablet 50 mg PO BID PRN (Reason: anxiety) phenazopyridine 100 mg tablet 100 mg PO Q8H 0 Days Qty: 6 0RF diltiazem HCl 120 mg capsule,extended release 24hr 120 mg PO DAILY [place] [facility] [place] [facility] [place]Provider Group]
[2023-11-09 10:12] LABS: Appearance Urine Cloudy; Color Urine Dark Yellow; Glucose Urine UA Negative (Negative); Leukocyte Esterase Urine Negative (Negative); Nitrite Urine Negative (Negative); PH 5.5 (5.0-9.0); Specific Gravity - Urine >= 1.030 (1.005-1.025); Urine Blood Negative (Negative); Urine Ketones 80 mg/dL (Negative); Urine Protein Trace mg/dL (Neg-Trace)
[2023-11-09 10:14] LABS: Bacteria Urine 1+ (None Seen); RBC Urine 0-2 /HPF (0-2); UPreg QC Valid YES; Urine Pregnancy NEGATIVE (NEGATIVE); WBC Urine 0-5 /HPF (0-5)
[2023-11-09 10:22] LABS: COVID-19 Test Negative (Negative); IDNOW Serial# BCCEAD1C
--- NOTE | 2023-11-09 10:47 | PC.NURSE ---
PT SITTING IN HER ROOM ON HER PHONE IN NO ACUTE OUTWARD DISTRESS, NO VOMITING, TESTING WAS NEGATIVE PLAN IS FOR DISCHARGE HOME
== END 2023-11-09 10:51 | disposition home or self-care (01) ==
PROVIDERS: Emergency Provider Emergency Medicine; PCP Nurse Practitioner Family
DX: R11.2 Nausea with vomiting, unspecified (principal); R00.2 Palpitations; Z11.52 Encounter for screening for COVID-19; Z20.822 Contact with and (suspected) exposure to COVID-19; Z79.899 Other long term (current) drug therapy
CPT/HCPCS: 81001; 81025; 87635; 99282; 99283

== ENCOUNTER 2023-12-29 18:42 | Emergency (ER) | payer OTHER, SELFPAY ==
--- NOTE | ~2023-12-29 | XR_ITS ---
EXAMINATION: XR CHEST CLINICAL INFORMATION: Cough. COMPARISON: Most recent chest radiograph dated 05/19/2023. TECHNIQUE: 2 views of the chest were obtained. FINDINGS: The lungs are clear. The cardiomediastinal silhouette is normal in size. There is no pleural effusion or pneumothorax. No acute osseous abnormality. XR/XR chest 2V IMPRESSION: No acute cardiopulmonary findings.
[2023-12-29 19:06] VITALS: BP 111/71; PULSE 78; RESP 18; TEMP 36.3; O2SAT 98; BMI 25.5
[2023-12-29 19:42] LABS: COVID-19 Test Negative (Negative); IDNOW Serial# 9DB6401D
[2023-12-29 19:44] LABS: IDNOW Serial# 152EDE1D; Influenza A Negative (Negative); Influenza B2 Negative (Negative)
--- NOTE | 2023-12-29 20:12 | ED.GENADULT ---
HPI - General Adult General Chief complaint: Upper Respiratory Symptoms Stated complaint: congested cough,sob Time Seen by Provider: 12/29/23 19:10 Source: patient Mode of arrival: ambulatory Limitations: no limitations History of Present Illness HPI narrative: 38 year old female with pmhx significant for anxiety presents to the ED for evaluation of cough x3 days. Reports fever, chills, congestion over the last 3 days which have now resolved. Her cough has lingered. Now brain up yellow sputum. Positive COVID contacts at work. She has tested negative for COVID at home. Denies recent travel or long car rides. Not on control. Denies fever, chills, sore throat, hemoptysis, chest pain, shortness of breath, wheezing, nausea, vomiting, diarrhea, constipation, abdominal pain. Related Data Home Medications Medication Instructions Recorded Confirmed hydroxyzine HCl 50 mg tablet 50 mg PO BID PRN anxiety 04/23/23 propranolol 20 mg tablet 20 mg PO TID 04/23/23 diltiazem HCl 120 mg 120 mg PO DAILY 08/02/23 capsule,extended release 24 hr Previous Rx's Medication Instructions Recorded lidocaine 5 % topical patch 1 patch topical DAILY PRN pain #30 03/24/23 (Lidoderm) ea gabapentin 100 mg capsule 100 mg PO BID #30 caps 04/19/23 meloxicam 15 mg tablet 15 mg PO DAILY #30 tabs 04/19/23 phenazopyridine 100 mg tablet 100 mg PO Q8H 6 doses #6 tabs 04/25/23 pantoprazole 40 mg tablet,delayed 40 mg PO DAILY #14 tabs 04/30/23 release (Protonix) mvvkqwprgy-pchfnsivplrqx-mcsklthz 1 cap PO Q6H PRN headache #14 caps 08/09/23 50 mg-300 mg-40 mg capsule (Fioricet) cyclobenzaprine 10 mg tablet 10 mg PO BEDTIME PRN muscle spasm 08/26/23 #7 tabs ketorolac 10 mg tablet 10 mg PO TID PRN pain 5 days #15 08/26/23 tabs lorazepam 0.5 mg tablet 0.5 mg PO BEDTIME PRN anxiety #10 10/17/23 tabs benzonatate 100 mg capsule 100 mg PO BID PRN cough #10 caps 12/29/23 Allergies Allergy/AdvReac Type Severity Reaction Status Date / Time No Known Allergies Allergy Unknown NOT Verified 12/29/23 19:06 APPLICABLE Review of Systems Review of Systems: Constitutional: No fever, chills, fatigue, night sweats, weight changes ENT/Mouth: No ear pain, hearing loss, nasal congestion, sinus pain, rhinorrhea, No sore throat, No odynophagia, No dysphagia Eyes: No eye pain, swelling, redness, vision changes, discharge Cardio: No chest pain, palpitations, PRATT, orthopnea, peripheral edema Pulm: No SOB, +cough, +sputum, wheezing, dyspnea, hemoptysis GI: No nausea, vomiting, hematemesis, abdominal pain, diarrhea, constipation, hematochezia, melena : No irregular bleeding, dysuria, frequency, urgency, hesitancy, hematuria, flank pain MSK: No back pain, neck pain, joint pain, myalgias Skin: No lesions, rashes Neuro: No weakness, numbness, paresthesias, LOC, dizziness, headache All other systems reviewed and are negative. [facility] Past Medical History Attestation statement: The following information was validated with the patient. Source: old records reviewed and nursing notes reviewed Medical History Lyme disease Heart palpitations Anxiety Cholecystectomy planned delivery delivered Social History Social History Alcohol intake: never Patient Tobacco Use Status: Current everyday Tobacco user Advance Directives: No Advance Directives Information Provided: No Physical Exam ED Vital Signs: Vital Signs - 24 hr 12/29/23 19:06 Temperature 97.3 F Pulse Rate 78 Respiratory Rate 18 Blood Pressure 111/71 Pulse Oximetry 98 Oxygen Delivery Method Room Air BMI result Body Mass Index 25.5 Vital signs stable, afebrile, not hypoxic Const General: cooperative, healthy appearing, comfortable, no acute distress, alert and awake Orientation/consciousness: patient oriented x3 Limitations: no limitations HENMT Other: + posterior oropharynx without erythema or edema, uvula is midline, no tonsilar exudates or peritonsillar masses, controlling secretions and speaking in complete sentences. Head: Yes normal to inspection, Yes normocephalic and Yes atraumatic Ears: hearing grossly normal bilaterally, external ears normal, TM's normal bilaterally, EAC's normal, mastoids normal and no periauricular adenopathy General nose exam: Normal external nose present and No nasal discharge present Face and sinus: Yes normal facial exam and Yes sinuses nontender Eyes General: appearance normal, both eyes and all related structures Conjunctivae: conjunctivae normal Sclerae: sclerae normal Pupils: Equal, round and reactive pupils present Neck Other: + no cervical, submandibular or submental LAD. Neck: Yes normal visual inspection and Yes full ROM Resp Effort & Inspection: normal respiratory effort and able to speak in complete sentences Auscultation: clear to auscultation bilaterally and no wheezes Cardio Rate: regular rate Rhythm: regular rhythm GI Inspection: Yes normal to inspection Palpation (GI): Soft to palpation and nontender Skin General skin exam: no rashes or lesions noted Neuro General: patient oriented x3 and gait normal Cranial nerves: Yes Equal, round and reactive pupils present Extrem General: Yes normal to inspection and Yes no calf tenderness Course Course Course Narrative: 2019-- patient tested negative for covid, flu. CXR unremarkable. There are no infiltrates or consolidations to suggest pneumonia. No effusion. Patient likely has viral upper respiratory infection. discussed work up results with patient. will send drew wood to pharmacy for cough. Patient has remained stable throughout ED visit today. Discussed strict return precautions. All questions answered at this time. Patient is agreeable with disposition and stable for discharge. Medical Decision Making Medical Decision Making [facility] Narrative: 38 year old female with pmhx significant for anxiety presents to the ED for evaluation of cough x3 days. Vital signs stable, afebrile. Not hypoxic. Patient is nontoxic-appearing and in no acute distress. Actively coughing on exam. Lungs are CTA bilaterally, no wheezes or stridor. Posterior oropharynx WNL. Bilateral EACs and TMs WNL. Clinical concern for viral syndrome, pneumonia, bronchitis. Low suspicion for strep, mono. PERC 0. 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 Serology and chest x-ray ordered. Differential Diagnosis Differential Diagnoses: The differential diagnosis associated with the presentation includes as above. Admission/Observation not indicated. Lab Data [facility] Lab Attestation statement: I reviewed the patient's lab results. as above. Labs: Lab Results 12/29/23 Range/Units 19:22 COVID-19 (GHANSHYAM) Negative (Negative) COVID-19 Clin Com See Note Influenza Type A (ALVINO) Negative (Negative) Influenza Type B (ALVINO) Negative (Negative) Influenza A & B Note See Note Independent Interpretation I performed an independent interpretation of an: Plain X-Ray Interpretation: I have personally reviewed patient's chest x-ray and agree with radiologist's interpretation. Radiology Impression Discussion of test interpretation with radiology: I have reviewed the radiologist's reading. Radiologist Impression: XR chest 2V IMPRESSION: No acute cardiopulmonary findings. External Record Review External record reviewed: Inpatient record, Office record, Outpatient record, Prior outpatient labs, Prior outpatient radiology, Primary care record and Outside ED record Prescription Management I considered prescription management with: Pain Medication and Other (Antitussive) Social Determinants Patient?s care significantly limited by Social Determinants of Health including: Other Social Determinant of Health Critical Care Time Critical Care Time Critical Care Time: No Discharge Plan Discharge Clinical Impression: Upper respiratory infection Patient Disposition: Home, Self-Care Instructions: Upper Respiratory Infection (ED), Viral Syndrome (ED) Additional Instructions: You tested negative for COVID, flu. Your chest x-ray was normal. You likely have a viral upper respiratory infection that does not require antibiotic treatment. Tessalon Perles have been sent to your pharmacy. Take these as needed for cough. Alter ibuprofen and Tylenol for fevers and body aches. You may also purchase nnio-cdu-otjwjwy Chloraseptic spray to spray at the back of the throat for throat pain. Follow-up with your PCP. If symptoms persist or worsen please return to the emergency department. The case of an emergency call 911. Prescriptions: New benzonatate 100 mg capsule 100 mg PO BID PRN (Reason: cough) Qty: 10 0RF No Action pantoprazole [Protonix] 40 mg tablet,delayed release (DR/EC) 40 mg PO DAILY Qty: 14 0RF omsaevqrkr-tsjmfljbxjkdp-aamn [Fioricet] 50-300-40 mg capsule 1 cap PO Q6H PRN (Reason: headache) Qty: 14 0RF lidocaine [Lidoderm] 5 % adhesive patch,medicated 1 patch topical DAILY MDD remove after 12 hours PRN (Reason: pain) Qty: 30 0RF Rx Instructions: leave on most painful area for up to 12 hrs meloxicam 15 mg tablet 15 mg PO DAILY Qty: 30 0RF gabapentin 100 mg capsule 100 mg PO BID Qty: 30 0RF cyclobenzaprine 10 mg tablet 10 mg PO BEDTIME PRN (Reason: muscle spasm) Qty: 7 0RF ketorolac 10 mg tablet 10 mg PO TID PRN (Reason: pain) 5 Days Qty: 15 0RF lorazepam 0.5 mg tablet 0.5 mg PO BEDTIME PRN (Reason: anxiety) Qty: 10 0RF propranolol 20 mg tablet 20 mg PO TID hydroxyzine HCl 50 mg tablet 50 mg PO BID PRN (Reason: anxiety) phenazopyridine 100 mg tablet 100 mg PO Q8H 0 Days Qty: 6 0RF diltiazem HCl 120 mg capsule,extended release 24hr 120 mg PO DAILY Stand Alone Forms: Work/School Release
== END 2023-12-29 21:00 | disposition home or self-care (01) ==
PROVIDERS: Physician Assistant Medical; Emergency Provider Emergency Medicine; PCP Nurse Practitioner Family
DX: J06.9 Acute upper respiratory infection, unspecified (principal); R05.9 Cough, unspecified; Z11.52 Encounter for screening for COVID-19
CPT/HCPCS: 71046; 87502; 87635; 99282; 99283

== ENCOUNTER 2024-01-07 15:17 | Emergency (ER) | payer OTHER, SELFPAY ==
[2024-01-07 15:51] VITALS: BP 127/78; PULSE 88; RESP 18; TEMP 36; O2SAT 100; BMI 25.0
--- NOTE | 2024-01-07 15:52 | ED.HA ---
HPI - Headache General Chief Complaint: Headache Stated Complaint: Headache 2xdays/ dizziness Time Seen by Provider: 01/07/24 19:06 Source: patient, RN notes reviewed and old records reviewed Mode of arrival: ambulatory Limitations: no limitations History of Present Illness HPI Narrative: 38-year-old female presents for evaluation of a headache. Patient reports right-sided headache for the last 2-3 days She has seen neurology in the past and was told that she likely has migraines Denies any trauma to the head or neck Patient endorses increased stress No other complaints or concerns at this time Related Data Home Medications Medication Instructions Recorded Confirmed hydroxyzine HCl 50 mg tablet 50 mg PO BID PRN anxiety 04/23/23 propranolol 20 mg tablet 20 mg PO TID 04/23/23 diltiazem HCl 120 mg 120 mg PO DAILY 08/02/23 capsule,extended release 24 hr Previous Rx's Medication Instructions Recorded lidocaine 5 % topical patch 1 patch topical DAILY PRN pain #30 03/24/23 (Lidoderm) ea gabapentin 100 mg capsule 100 mg PO BID #30 caps 04/19/23 meloxicam 15 mg tablet 15 mg PO DAILY #30 tabs 04/19/23 phenazopyridine 100 mg tablet 100 mg PO Q8H 6 doses #6 tabs 04/25/23 pantoprazole 40 mg tablet,delayed 40 mg PO DAILY #14 tabs 04/30/23 release (Protonix) sasvshgupy-rjrzgszwfknnn-grouvkip 1 cap PO Q6H PRN headache #14 caps 08/09/23 50 mg-300 mg-40 mg capsule (Fioricet) cyclobenzaprine 10 mg tablet 10 mg PO BEDTIME PRN muscle spasm 08/26/23 #7 tabs ketorolac 10 mg tablet 10 mg PO TID PRN pain 5 days #15 08/26/23 tabs lorazepam 0.5 mg tablet 0.5 mg PO BEDTIME PRN anxiety #10 10/17/23 tabs benzonatate 100 mg capsule 100 mg PO BID PRN cough #10 caps 12/29/23 fcjqkzxwaq-oqvslbaokkeut-qvciuonk 1 cap PO Q4-6H PRN pain #14 caps 01/07/24 50 mg-300 mg-40 mg capsule (Fioricet) Allergies Allergy/AdvReac Type Severity Reaction Status Date / Time No Known Allergies Allergy Unknown NOT Verified 01/07/24 15:53 APPLICABLE Review of Systems Constitutional: Constitutional: Denies body ache(s), Denies chills, Denies fever(s) and Reports headache(s) Eyes: Eyes: Denies blurry vision and Denies exophthalmos ENT: Reports headache(s) and Denies sore throat Cardiovascular: Cardiovascular: Denies chest pain and Denies dyspnea Respiratory: Respiratory: Denies cough and Denies dyspnea Gastrointestinal: Gastrointestinal: Denies abdominal pain Musculoskeletal: Musculoskeletal: Denies back pain Integumentary/Breasts: Skin/Breast: Denies rash Neurologic: Reports headache(s) PMFSH Past Medical History Medical History Lyme disease Heart palpitations Anxiety Cholecystectomy planned delivery delivered Social History Social History Alcohol intake: never Patient Tobacco Use Status: Current everyday Tobacco user Advance Directives: No Advance Directives Information Provided: No Physical Exam Vital Signs: Vital Signs: Last Vital Signs Temp 98.8 F 01/07/24 19:20 Pulse 79 01/07/24 19:20 Resp 16 01/07/24 19:20 BP 130/71 01/07/24 19:20 Pulse Ox 100 01/07/24 19:20 O2 Del Method Room Air 01/07/24 19:20 BMI result Body Mass Index 25.0 Const: General: healthy appearing, comfortable, no acute distress, alert and awake Nutritional Appearance: well nourished Orientation/consciousness: patient oriented x3 HEENT: Head: Yes normocephalic and Yes atraumatic Eyes: Eyelids: Yes eyelids normal Conjunctivae: conjunctivae normal Sclerae: sclerae normal Corneas: corneas normal Pupils: Equal, round and reactive pupils present EOM: EOMs intact bilaterally Neck: Neck: Yes full ROM Resp: Effort & Inspection: normal respiratory effort, able to speak in complete sentences and not labored Skin: General skin exam: elasticity normal Neuro: General: patient oriented x3 Cranial nerves: Yes CN's II-XII intact bilaterally, Yes Equal, round and reactive pupils present and Yes Bilaterally intact EOM present Cognition (Neuro): normal cognition Course Course Course Narrative: RME:?38 yo female here for eval of right sided headache x2 days. endorses assoc photophobia and blurred vision. denies double vision or vision loss. states this feels like her typical headache however it's lasting longer than usual. Has been taking tylenol without relief. exam nofocal. u preg ordered. Full HPI, ROS and PE to be performed by the primary ED provider. Reevaluation(s) Reevaluation #1: Patient reports feeling better after treatment, she was requesting a brain CT. I discussed risks and benefits and still do not see any indication to repeat emergent imaging of the head. The patient be discharged with Fioricet for headaches and will follow-up with her PCP and neurologist Medications Administered Discontinued Medications Generic Name Dose Route Start Last Admin Trade Name Freq PRN Reason Stop Dose Admin Acetaminophen/Butalbital/Caffeine 1 tab 01/07/24 19:31 01/07/24 19:49 Butalb/Acetamin/Caff 50/325/40 Tablet PO 01/07/24 19:32 1 tab ONCE ONE Administration Ketorolac Tromethamine 30 mg 01/07/24 19:31 01/07/24 19:49 Ketorolac Tromethamine 30 Mg/Ml Vial IM 01/07/24 19:32 30 mg ONCE ONE Administration Lorazepam 1 mg 01/07/24 19:31 01/07/24 19:49 Lorazepam 1 Mg Tablet PO 01/07/24 19:32 1 mg ONCE ONE Administration Medical Decision Making Medical Decision Making MDM Narrative: 38-year-old female presents for evaluation of a headache. Her headache has gradually worsened over the last 3 days. She has a history of similar symptoms and was told that she likely has migraine headaches. Her neuro exam is benign. She has had multiple CT scans of her brain in the past without acute findings. I do not see any indication to get a CT scan the brain currently. A.m. to treat her headache with Toradol and Fioricet. Will treat her anxiety with lorazepam Differential Diagnosis Differential Diagnoses: The differential diagnosis associated with the presentation includes Acute headache Tension headache Cluster headache Migraine headache Lab Data Labs: Lab Results 01/07/24 Range/Units 18:40 Urine Test NEGATIVE (NEGATIVE) COVID-19 (GHANSHYAM) Negative (Negative) COVID-19 Clin Com See Note Influenza Type A (ALVINO) Negative (Negative) Influenza Type B (ALVINO) Negative (Negative) Influenza A & B Note See Note Tests considered The following testing was considered but not selected: Consider CT brain, however the patient has had multiple in the past most recently in May of last year Discharge Plan Discharge Clinical Impression: Acute headache Patient Disposition: Home, Self-Care Instructions: Acute Headache (DC) Additional Instructions: You may use Motrin/ibuprofen as needed for headaches. Use Fioricet as needed for breakthrough headaches Call your primary doctor and your neurologist to schedule follow-up Prescriptions: New tltztszuct-guabetsiwzkmm-upco [Fioricet] 50-300-40 mg capsule 1 cap PO Q4-6H PRN (Reason: pain) Qty: 14 0RF No Action pantoprazole [Protonix] 40 mg tablet,delayed release (DR/EC) 40 mg PO DAILY Qty: 14 0RF ttiojwdtde-quubhppefaxhm-lajb [Fioricet] 50-300-40 mg capsule 1 cap PO Q6H PRN (Reason: headache) Qty: 14 0RF lidocaine [Lidoderm] 5 % adhesive patch,medicated 1 patch topical DAILY MDD remove after 12 hours PRN (Reason: pain) Qty: 30 0RF Rx Instructions: leave on most painful area for up to 12 hrs meloxicam 15 mg tablet 15 mg PO DAILY Qty: 30 0RF gabapentin 100 mg capsule 100 mg PO BID Qty: 30 0RF cyclobenzaprine 10 mg tablet 10 mg PO BEDTIME PRN (Reason: muscle spasm) Qty: 7 0RF ketorolac 10 mg tablet 10 mg PO TID PRN (Reason: pain) 5 Days Qty: 15 0RF lorazepam 0.5 mg tablet 0.5 mg PO BEDTIME PRN (Reason: anxiety) Qty: 10 0RF benzonatate 100 mg capsule 100 mg PO BID PRN (Reason: cough) Qty: 10 0RF propranolol 20 mg tablet 20 mg PO TID hydroxyzine HCl 50 mg tablet 50 mg PO BID PRN (Reason: anxiety) phenazopyridine 100 mg tablet 100 mg PO Q8H 0 Days Qty: 6 0RF diltiazem HCl 120 mg capsule,extended release 24hr 120 mg PO DAILY
--- NOTE | 2024-01-07 18:42 | MHC.EDTECH ---
no answer at 1841
[2024-01-07 19:00] LABS: COVID-19 Test Negative (Negative); IDNOW Serial# 16C4AD1C
[2024-01-07 19:02] LABS: IDNOW Serial# 55D5AD1C; Influenza A Negative (Negative); Influenza B2 Negative (Negative)
--- NOTE | 2024-01-07 19:18 | PC.NURSE ---
pt c/o anxiety requesting something to help with it. pt sts she uses to take atarax but that no longer works for her. LIZ Marcum notified via [employer]
[2024-01-07 19:19] LABS: UPreg QC Valid YES; Urine Pregnancy NEGATIVE (NEGATIVE)
[2024-01-07 19:20] VITALS: BP 130/71; PULSE 79; RESP 16; TEMP 37.1; O2SAT 100
[2024-01-07] MEDS: Butalb/Acetamin/Caff 50/325/40 TABLET 1 TAB PO (19:49)
[2024-01-07] MEDS: LORazepam 1 MG TABLET PO (19:49)
[2024-01-07] MEDS: Ketorolac Tromethamine 30 MG/ML VIAL IM (19:49)
== END 2024-01-07 21:50 | disposition home or self-care (01) ==
PROVIDERS: Physician Assistant Medical; Emergency Provider Internal Medicine; PCP Nurse Practitioner Family
DX: R51.9 Headache, unspecified (principal); R42 Dizziness and giddiness; Z79.899 Other long term (current) drug therapy; Z11.52 Encounter for screening for COVID-19
CPT/HCPCS: 81025; 87502; 87635; 96372; 99283; 99284; J1885

== ENCOUNTER 2024-01-12 09:27 | Emergency (ER) | payer OTHER, SELFPAY ==
[2024-01-12 09:34] VITALS: BP 128/69; PULSE 86; RESP 16; TEMP 36.4; O2SAT 100; BMI 26.2
--- NOTE | 2024-01-12 09:59 | ED.GENADULT ---
HPI - General Adult General Chief complaint: General Medical Stated complaint: yellow fluid coming from nose Time Seen by Provider: 01/12/24 09:56 Source: patient Mode of arrival: ambulatory Limitations: no limitations History of Present Illness HPI narrative: Patient is a 38-year-old female with history of anxiety, Lyme disease presenting to the emergency department with complaint of bright yellow nasal drainage as well as nonproductive cough since yesterday. She denies fever, body aches, difficulty breathing, chest pain, palpitations. States son was sick with similar symptoms recently. Patient states that she was concerned due to the color of her mucus. MD complaint: nasal congestion Onset (ago): day(s) Associated symptoms: denies other symptoms Treatments prior to arrival: none Related Data Home Medications Medication Instructions Recorded Confirmed hydroxyzine HCl 50 mg tablet 50 mg PO BID PRN anxiety 04/23/23 propranolol 20 mg tablet 20 mg PO TID 04/23/23 diltiazem HCl 120 mg 120 mg PO DAILY 08/02/23 capsule,extended release 24 hr Previous Rx's Medication Instructions Recorded lidocaine 5 % topical patch 1 patch topical DAILY PRN pain #30 03/24/23 (Lidoderm) ea gabapentin 100 mg capsule 100 mg PO BID #30 caps 04/19/23 meloxicam 15 mg tablet 15 mg PO DAILY #30 tabs 04/19/23 phenazopyridine 100 mg tablet 100 mg PO Q8H 6 doses #6 tabs 04/25/23 pantoprazole 40 mg tablet,delayed 40 mg PO DAILY #14 tabs 04/30/23 release (Protonix) uvkxpmzyax-djzjtmxqwxzhm-rlldfukf 1 cap PO Q6H PRN headache #14 caps 08/09/23 50 mg-300 mg-40 mg capsule (Fioricet) cyclobenzaprine 10 mg tablet 10 mg PO BEDTIME PRN muscle spasm 08/26/23 #7 tabs ketorolac 10 mg tablet 10 mg PO TID PRN pain 5 days #15 08/26/23 tabs lorazepam 0.5 mg tablet 0.5 mg PO BEDTIME PRN anxiety #10 10/17/23 tabs benzonatate 100 mg capsule 100 mg PO BID PRN cough #10 caps 12/29/23 gybxwqfgus-ntxyczwitryul-mlsqxjwe 1 cap PO Q4-6H PRN pain #14 caps 01/07/24 50 mg-300 mg-40 mg capsule (Fioricet) Allergies Allergy/AdvReac Type Severity Reaction Status Date / Time No Known Allergies Allergy Unknown NOT Verified 01/12/24 09:32 APPLICABLE Review of Systems Review of Systems: As per HPI. Yes all other systems are reviewed and are negative Constitutional: Constitutional: Reports as per HPI [facility] Past Medical History Medical History Lyme disease Heart palpitations Anxiety Cholecystectomy planned delivery delivered Social History Social History Alcohol intake: never Patient Tobacco Use Status: Current everyday Tobacco user Advance Directives: No Advance Directives Information Provided: No Physical Exam ED Vital Signs: Vital Signs - 24 hr 01/12/24 09:34 Temperature 97.6 F Pulse Rate 86 Respiratory Rate 16 Blood Pressure 128/69 Pulse Oximetry 100 Oxygen Delivery Method Room Air BMI result Body Mass Index 26.2 Vital signs have been reviewed and appear to be correct. Blood pressure normal. Heart rate normal. Respiratory rate normal. Temperature normal. Oxygen saturation normal. Const General: cooperative, healthy appearing and no acute distress Orientation/consciousness: oriented to person, oriented to place, oriented to time and patient oriented x3 Limitations: no limitations HENMT Head: Yes normocephalic and Yes atraumatic Ears: external ears normal, TM's normal bilaterally and EAC's normal General nose exam: Normal external nose present, Normal nasal mucous membranes and turbinates present, Normal septum present and No nasal discharge present Face and sinus: Yes sinuses nontender and Yes face symmetric Mouth: Normal oral and palatal mucosa present, oropharynx normal and moist mucous membranes Throat: Yes posterior oropharynx normal, Yes uvula midline and No uvular edema Eyes Pupils: Equal, round and reactive pupils present Neck Neck: Yes normal visual inspection and Yes supple Lymphatic: no lymphadenopathy noted Resp Effort & Inspection: normal respiratory effort and able to speak in complete sentences Auscultation: clear to auscultation bilaterally Cardio Rate: regular rate Rhythm: regular rhythm Heart sounds: S1 normal heart sound present and S2 normal heart sound present GI Palpation (GI): Soft to palpation and nontender Auscultation: normoactive bowel sounds General: Yes no CVA tenderness Back/Spine/Pelvis Back: no CVA tenderness Skin General skin exam: elasticity normal and turgor normal Neuro General: oriented to person, oriented to place, oriented to time, patient oriented x3, moves all extremities, no focal motor deficits and CN's II-XI intact bilaterally Cranial nerves: Yes Equal, round and reactive pupils present Cognition (Neuro): normal cognition Extrem General: Yes full ROM, Yes no pedal edema and Yes no calf tenderness Psych Mental Status: mental status grossly normal Affect: normal affect Thought process: Normal thought process present Medical Decision Making Medical Decision Making [facility] Narrative: Patient is a 38-year-old female with history of anxiety, Lyme disease presenting to the emergency department with complaint of bright yellow nasal drainage as well as nonproductive cough since yesterday. On exam patient is awake, A+Ox3, VS WNL, afebrile, normal neurological exam without focal deficits, physical exam findings as above. Given reported symptoms and physical exam findings, initial differential includes viral illness, flu, Covid. Do not suspect sinusitis, bronchitis, pneumonia. Swabs for flu and Covid both negative and patient updated on results. Advised patient to use nasal saline spray, Tylenol, ibuprofen and follow up with PCP. Return precautions discussed. Patient verbalized understanding of and agreement with plan. Differential Diagnosis Differential Diagnoses: The differential diagnosis associated with the presentation includes As per [facility]. Lab Data [facility] Lab Attestation statement: I reviewed the patient's lab results. As per [facility] Labs: Lab Results 01/12/24 Range/Units 09:50 COVID-19 (GHANSHYAM) Negative (Negative) COVID-19 Clin Com See Note Influenza Type A (ALVINO) Negative (Negative) Influenza Type B (ALVINO) Negative (Negative) Influenza A & B Note See Note External Record Review External record reviewed: Inpatient record, Office record and Outpatient record Discharge Plan Discharge Clinical Impression: Upper respiratory virus Patient Disposition: Home, Self-Care Instructions: Upper Respiratory Infection (DC) Additional Instructions: You were evaluated in the emergency department today congestion and cough. Your Covid and flu tests were negative. Your symptoms are likely related to a viral illness which will resolve on its own with time and rest. You should ensure adequate fluid intake, and can use Tylenol 650 mg or ibuprofen 600 mg every 6 hours as needed for fever or discomfort. You should also use over the counter nasal saline spray in your nostrils 3-4 times daily. Please follow-up with your primary care provider this week. Return to the emergency department if you develop chest pain, worsening shortness of breath, difficulty swallowing, fever 100.4? F or greater or any other concerning symptoms. Prescriptions: No Action pantoprazole [Protonix] 40 mg tablet,delayed release (DR/EC) 40 mg PO DAILY Qty: 14 0RF cztzfnhxvj-lyjxlwpdehcts-ehfs [Fioricet] 50-300-40 mg capsule 1 cap PO Q6H PRN (Reason: headache) Qty: 14 0RF gdbxidlggr-imnhplaxjdilt-ucef [Fioricet] 50-300-40 mg capsule 1 cap PO Q4-6H PRN (Reason: pain) Qty: 14 0RF lidocaine [Lidoderm] 5 % adhesive patch,medicated 1 patch topical DAILY MDD remove after 12 hours PRN (Reason: pain) Qty: 30 0RF Rx Instructions: leave on most painful area for up to 12 hrs meloxicam 15 mg tablet 15 mg PO DAILY Qty: 30 0RF gabapentin 100 mg capsule 100 mg PO BID Qty: 30 0RF cyclobenzaprine 10 mg tablet 10 mg PO BEDTIME PRN (Reason: muscle spasm) Qty: 7 0RF ketorolac 10 mg tablet 10 mg PO TID PRN (Reason: pain) 5 Days Qty: 15 0RF lorazepam 0.5 mg tablet 0.5 mg PO BEDTIME PRN (Reason: anxiety) Qty: 10 0RF benzonatate 100 mg capsule 100 mg PO BID PRN (Reason: cough) Qty: 10 0RF propranolol 20 mg tablet 20 mg PO TID hydroxyzine HCl 50 mg tablet 50 mg PO BID PRN (Reason: anxiety) phenazopyridine 100 mg tablet 100 mg PO Q8H 0 Days Qty: 6 0RF diltiazem HCl 120 mg capsule,extended release 24hr 120 mg PO DAILY
[2024-01-12 10:14] LABS: IDNOW Serial# 58CA691E
[2024-01-12 10:15] LABS: Influenza A Negative (Negative); Influenza B2 Negative (Negative)
[2024-01-12 10:16] LABS: COVID-19 Test Negative (Negative); IDNOW Serial# 9DB6401D
== END 2024-01-12 10:40 | disposition home or self-care (01) ==
PROVIDERS: Emergency Provider Emergency Medicine; PCP Nurse Practitioner Family
DX: J06.9 Acute upper respiratory infection, unspecified (principal); Z11.52 Encounter for screening for COVID-19; F17.200 Nicotine dependence, unspecified, uncomplicated
CPT/HCPCS: 87502; 87635; 99282; 99283

== ENCOUNTER 2024-01-19 09:15 | Outpatient (AMB) | payer OTHER, SELFPAY ==
--- NOTE | 2024-01-19 09:29 | MHC.OFFVIS ---
Intake Vital Signs 01/19/24 09:31 Height 5 ft 5 in Weight 152 lb 1.903 oz BMI 25.3 BP 117/74 Blood Pressure Location Lt brachial Position Sitting Pulse 84 Intake Visit Reasons: difficulty swallowing Intake Note: Nicole presents in the office as a new patient for difficulty swallowing. CC: Does not feel like she has anything in her throat and does not choke - just difficulty with swallowing. Liquids and solids both bother her. Wedger And Gluer Required: No Allergies No Known Allergies Allergy (Unknown, Verified 01/12/24 09:32) NOT APPLICABLE HPI difficulty swallowing HPI Details 38 years old female with past medical history of anxiety, heart palpitation is here today for initial consultation. Patient reports that she is having trouble swallowing. When discussing patient's her symptoms, patient reports that she only has trouble swallowing when she gets very anxious. Patient thinks about that she is going to have difficulty swallowing food or drinks, patient does not actually feel physically like she is having trouble able to swallow okay, however has panic about inability to swallow. Patient was treated in the past about 5 years ago for acid reflux was on PPI for short time. Patient is not taking any medications to help her with the symptoms. Denies dyspepsia or odynophagia. Denies any epigastric pain or discomfort. Patient reports that she is moving her bowels without any issues. Patient denies any nausea or vomiting. [facility] Medical History Lyme disease Heart palpitations Anxiety Cholecystectomy planned delivery delivered Social History Alcohol intake: never Patient Tobacco Use Status: Current everyday Tobacco user Review of Systems Const Denies weight gain and Denies weight loss ENT Reports no additional complaints, Reports dysphagia (feeling like ) and Denies odynophagia Card Reports no additional complaints Resp Reports no additional complaints GI Denies abdominal pain, Denies belching, Denies melena, Denies bloating, Denies change in bowel habits, Reports dysphagia (feeling like ), Denies excessive flatus, Denies dyspepsia, Reports heartburn, Denies diarrhea, Denies loose stools, Denies nausea, Denies odynophagia and Denies vomiting Reports no additional complaints Musc Reports no additional complaints Neuro Reports no additional complaints Psych Reports no additional complaints Endo Reports no additional complaints Physical Exam Vital Signs: Last Vital Signs Pulse 84 01/19/24 09:31 BP 117/74 01/19/24 09:31 BMI result Body Mass Index 25.3 Const General: healthy appearing, no acute distress and well developed Nutritional Appearance: well nourished Orientation/consciousness: patient oriented x3 Resp Effort & Inspection: normal respiratory effort, able to speak in complete sentences, no tracheal deviation and symmetric chest movement Auscultation: clear to auscultation bilaterally Cardio Rate: regular rate GI Inspection: Yes normal to inspection and No distended Palpation (GI): Soft to palpation, not firm, nontender and No hepatosplenomegaly present Auscultation: normal bowel sounds General: Yes no CVA tenderness Back/Spine/Pelvis Back: no CVA tenderness Skin General skin exam: elasticity normal, turgor normal and dry skin Neuro General: patient oriented x3 Psych Appearance: grossly normal Mental Status: mental status grossly normal Assessment & Plan Assessment & Plan (1) Dysphagia: Code(s): R13.10 - Dysphagia, unspecified Qualifiers: Dysphagia type: oropharyngeal phase Qualified Code(s): R13.12 - Dysphagia, oropharyngeal phase (2) GERD (gastroesophageal reflux disease): Code(s): K21.9 - Gastro-esophageal reflux disease without esophagitis Qualifiers: Esophagitis presence: esophagitis presence not specified Qualified Code(s): K21.9 - Gastro-esophageal reflux disease without esophagitis Plan Will send patient for barium swallow to see if patient truly has dysphagia or this feeling is related to possibly acid reflux. Will check for H pylori and treat empirically if positive. Will check for celiac disease, check her lipase as well. I will see her in 6 weeks, sooner on as needed basis. Patient will be started on omeprazole to see if her symptoms will improve. Patient is agreeable to plan of care and verbalizes understanding of instructions. She was given the opportunity to ask questions and all questions answered. Thank you for allowing me to participate in her care Orders: Orders H Pylori Breath Test Today Transglutaminase Ab IgG Today R10.9 - Unspecified abdominal pain FL barium swallow Today R13.10 - Dysphagia, unspecified Lipase Today R10.9 - Unspecified abdominal pain Transglutaminase IgA Today R10.9 - Unspecified abdominal pain Medications: New omeprazole 20 mg PO DAILY 30 caps 3RF K21.9 - Gastro-esophageal reflux disease without esophagitis Coding Level of Care Code New Pt Level 3 (01530) Diagnoses Oropharyngeal dysphagia R13.12 Dysphagia type: oropharyngeal phase Gastroesophageal reflux disease, unspecified whether esophagitis present K21.9 Esophagitis presence: esophagitis presence not specified Time Spent (min) 40 Comment 30 minutes spent with patient and additional 10 minutes spent reviewing her records
[2024-01-19 09:31] VITALS: BP 117/74; PULSE 84; BMI 25.3
== END 2024-01-19 10:15 | disposition home or self-care (01) ==
PROVIDERS: PCP Nurse Practitioner Family; Visit Provider Nurse Practitioner Family
DX: R13.12 Dysphagia, oropharyngeal phase (principal); K21.9 Gastro-esophageal reflux disease without esophagitis
CPT/HCPCS: 99203

== ENCOUNTER 2024-01-19 09:15 | Outpatient (REF) | payer OTHER, SELFPAY ==
[2024-01-20 11:43] LABS: H Pylori Breath Test Negative (Negative)
== END 2024-01-19 09:16 | disposition home or self-care (01) ==
LOC: HO.LAB 09:15
PROVIDERS: PCP Nurse Practitioner Family; Visit Provider Nurse Practitioner Family
DX: K21.9 Gastro-esophageal reflux disease without esophagitis (principal); R13.12 Dysphagia, oropharyngeal phase; R10.9 Unspecified abdominal pain
CPT/HCPCS: 83013; 99202

== ENCOUNTER 2024-01-26 09:01 | Emergency (ER) | payer OTHER, SELFPAY ==
[2024-01-26 09:35] VITALS: BP 122/67; PULSE 73; RESP 18; TEMP 37; O2SAT 100; BMI 25.0
[2024-01-26 10:08] LABS: Basophils Absolute Auto 0.1 X10*3/uL (0.0-0.2); Basophils Percent Auto 0.9 % (0-2); Eosinophils Absolute Auto 0.1 X10*3/uL (0.0-0.4); Eosinophils Percent Auto 1.6 % (0-4); Hematocrit 38.2 % (37.0-47.0); Hemoglobin 12.7 g/dl (12.0-16.0); Imm Gran Abs Auto 0.02 X10*3/uL (0.00-0.03); Imm Gran Pct Auto 0.3 % (0.0-0.4); Lymphocytes Absolute Auto 2.4 X10*3/uL (1.2-4.9); Lymphocytes Percent Auto 35.5 % (20-40); MANUAL DIFF FLAG NO; Mean Corpuscular HGB Conc 33.2 g/dl (31.0-35.0); Mean Corpuscular Hemoglobin 30.5 pg (27.0-33.0); Mean Corpuscular Volume 91.6 fL (80.0-98.0); Mean Platelet Volume 10.5 fL (9.4-12.3); Monocytes Absolute Auto 0.5 X10*3/uL (0.1-1.2); Monocytes Percent Auto 7.1 % (2-11); Neutrophils Absolute Auto 3.7 x10*3/uL (2.0-8.3); Neutrophils Percent Auto 54.6 % (45-73); Platelet Count 211 X10*3/uL (160-400); Red Blood Count 4.17 X10*6/uL (4.20-5.50); Red Cell Distribution Width 13.3 % (11.0-16.0); White Blood Count 6.7 X10*3/uL (4.8-10.8)
[2024-01-26 10:18] LABS: IDNOW Serial# 08D9AD1C; Strep A Nucleic Acid Negative (Negative)
[2024-01-26 10:44] LABS: Influenza A PCR NEGATIVE (Negative); Influenza B PCR NEGATIVE (Negative); Resp Syncy Virus RNA Qual PCR NEGATIVE (Negative); SARS COV2 PCR INHOUSE NEGATIVE (Negative)
--- NOTE | 2024-01-26 10:44 | ED_ITS ---
HPI - General Adult General Chief complaint: Headache Stated complaint: Dizziness 3 days, headaches Time Seen by Provider: 01/26/24 10:21 Source: patient Mode of arrival: ambulatory Limitations: no limitations History of Present Illness HPI narrative: 38-year-old female history of anxiety, palpitations presenting to the emergency department for evaluation of intermittent dizziness for the past 3 days, described as room spinning, worsened by positional movements. Also reporting anxiety. She tells me she is felt dizzy in the past and it is usually triggered by her anxiety. However she states it typically goes away after few days and this time it does not seem to be going away. Patient reports intermittent headaches however not present at this time. Patient denies visual disturbances, weakness, head or neck trauma, chest pain, shortness of breath, fevers, chills, nausea, vomiting, abdominal pain, suicidal or homicidal ideation. Related Data Home Medications Medication Instructions Recorded Confirmed hydroxyzine HCl 50 mg tablet 50 mg PO BID PRN anxiety 04/23/23 diltiazem HCl 120 mg 120 mg PO DAILY 08/02/23 capsule,extended release 24 hr meloxicam 15 mg tablet 15 mg PO DAILY 01/19/24 Previous Rx's Medication Instructions Recorded gabapentin 100 mg capsule 100 mg PO BID #30 caps 04/19/23 cyclobenzaprine 10 mg tablet 10 mg PO BEDTIME PRN muscle spasm 08/26/23 #7 tabs ketorolac 10 mg tablet 10 mg PO TID PRN pain 5 days #15 08/26/23 tabs lorazepam 0.5 mg tablet 0.5 mg PO BEDTIME PRN anxiety #10 10/17/23 tabs benzonatate 100 mg capsule 100 mg PO BID PRN cough #10 caps 12/29/23 inebdfrmbr-fqbutsjxwfgac-tedxvncu 1 cap PO Q4-6H PRN pain #14 caps 01/07/24 50 mg-300 mg-40 mg capsule (Fioricet) omeprazole 20 mg capsule,delayed 20 mg PO DAILY #30 caps 01/19/24 release meclizine 25 mg tablet 25 mg PO DAILY PRN dizziness #7 01/26/24 tabs Allergies Allergy/AdvReac Type Severity Reaction Status Date / Time No Known Allergies Allergy Unknown NOT Verified 01/26/24 09:38 APPLICABLE Review of Systems 2 Review of Systems: Yes all other systems are reviewed and are negative PMFSH Past Medical History Attestation statement: The following information was validated with the patient. Source: old records reviewed and nursing notes reviewed Medical History Lyme disease Heart palpitations Anxiety Cholecystectomy planned delivery delivered Social History Social History Alcohol intake: never Patient Tobacco Use Status: Current everyday Tobacco user Advance Directives: No Physical Exam ED Vital Signs: Vital Signs - 24 hr 01/26/24 09:35 01/26/24 10:49 01/26/24 10:53 Temperature 98.6 F Pulse Rate 73 63 62 Respiratory Rate 18 Blood Pressure 122/67 116/66 116/72 Pulse Oximetry 100 Oxygen Delivery Method Room Air 01/26/24 10:54 Temperature Pulse Rate 79 Respiratory Rate Blood Pressure 110/74 Pulse Oximetry Oxygen Delivery Method BMI result Body Mass Index 25.0 vss Appearance: Alert.? Oriented X3.? No acute distress.? Head: Normocephalic, atraumatic, no step-offs or deformities Eyes: Pupils equal, round and reactive to light.? Neck: Normal inspection.? Neck supple.? Freely moving neck. No meningeal signs present CVS: Normal heart rate and rhythm.? Pulses normal.? Respiratory: No respiratory distress.? Breath sounds normal.? Abdomen: Soft and nontender.? Skin: Skin warm and dry.? Normal skin color.? Normal skin turgor.? Extremities: No lower extremity edema.? No calf ttp. 5/5 strength to bilateral upper and lower extremities Neuro: Oriented X 3.? No motor deficit.? No sensory deficit. Negative Romberg and pronator drift normal hand clothing supervisor bilaterally. Normal jhhxih-ab-dtfp, slpq-zc-vsvy steady tandem gait normal coordination Course Reevaluation(s) Reevaluation #1: CBC unremarkable. Chemistry no acute findings. Beta hCG negative. EKG nonischemic. Negative orthostatic. Patient to be discharged with meclizine. Patient feeling much better. Educated patient on diagnosis and treatment plan, answered all question, patient verbalizes understanding. At this time patient will be discharged home, advised to return with new or worsening symptoms. Educated on worrisome signs and symptoms and when to return. At this time I feel comfortable discharge home. Time: 11:30 Medical Decision Making Medical Decision Making [facility] Narrative: 38-year-old female presents for evaluation of anxiety, dizziness ongoing for the past 3 days. No head trauma, fevers or chills Physical exam benign neuro nonfocal, cerebellar intact History and physical exam concerning for vertigo versus BPPV versus orthostatic hypotension versus anxiety. Unlikely intracranial hemorrhage, stroke, posterior stroke, meningitis, encephalitis. Plan at this time labs and EKG as well as viral testing ordered from triage. Will obtain orthostatic vital signs Differential Diagnosis Differential Diagnoses: The differential diagnosis associated with the presentation includes History and physical exam concerning for vertigo versus BPPV versus orthostatic hypotension versus anxiety. Unlikely intracranial hemorrhage, stroke, posterior stroke, meningitis, encephalitis. Admission/Observation Consideration of admission/observation: Escalation of care including admission/observation considered Unlikely Lab Data [facility] Lab Attestation statement: I reviewed the patient's lab results. 01/26/24 10:03 01/26/24 10:03 Labs: Lab Results 01/26/24 Range/Units 10:03 WBC 6.7 (4.8-10.8) X10*3/uL RBC 4.17 L (4.20-5.50) X10*6/uL Hgb 12.7 (12.0-16.0) g/dl Hct 38.2 (37.0-47.0) % MCV 91.6 (80.0-98.0) fL MCH 30.5 (27.0-33.0) pg MCHC 33.2 (31.0-35.0) g/dl RDW 13.3 (11.0-16.0) % Plt Count 211 (160-400) X10*3/uL MPV 10.5 (9.4-12.3) fL Immature Gran % (Auto) 0.3 (0.0-0.4) % Neut % (Auto) 54.6 (45-73) % Lymph % (Auto) 35.5 (20-40) % Russell % (Auto) 7.1 (2-11) % Eos % (Auto) 1.6 (0-4) % Baso % (Auto) 0.9 (0-2) % Lymph # (Auto) 2.4 (1.2-4.9) X10*3/uL Russell # (Auto) 0.5 (0.1-1.2) X10*3/uL Eos # (Auto) 0.1 (0.0-0.4) X10*3/uL Baso # (Auto) 0.1 (0.0-0.2) X10*3/uL Abs Immat Gran (auto) 0.02 (0.00-0.03) X10*3/uL Absolute Neuts (auto) 3.7 (2.0-8.3) x10*3/uL Absolute Nucleated RBC 0.000 (0.0-0.012) X10*3/uL Nucleated RBC % (auto) 0.0 (0.0-0.2) /100WBC Sodium 143 (135-145) mmol/L Potassium 4.8 (3.3-5.1) mmol/L Chloride 112 H (96-108) mmol/L Carbon Dioxide 27 (22-29) mmol/L Anion Gap 9 L (12-20) BUN 9 (9-16) mg/dL Creatinine 0.75 (0.5-1.4) mg/dL Estim Creat Clear Calc 93.2 Estimated GFR > 60 Random Glucose 94 (60-115) mg/dL Calcium 9.0 (8.4-10.2) mg/dL Total Bilirubin 1.0 (0.0-1.0) mg/dL AST 12 (5-31) U/L ALT 7 (0-31) U/L Alkaline Phosphatase 43 (39-117) U/L Total Protein 6.6 (6.5-8.0) g/dL Albumin 4.0 (3.5-5.0) g/dL Beta HCG, Quant < 2 mIU/mL Influenza Type A (PCR) NEGATIVE (Negative) Influenza Type B (PCR) NEGATIVE (Negative) RSV RNA Qual (PCR) NEGATIVE (Negative) SARS-CoV-2 RNA (RT-PCR) NEGATIVE (Negative) S. pyogenes GrpA ALVINO Negative (Negative) Tests considered The following testing was considered but not selected: No indication for head CT patient had 1 in May no abnormalities. Also no focal neuro deficits or abnormalities with cerebelllar function no indication for MRI Prescription Management I considered prescription management with: Other (Meclizine ) Chronic Conditions Patient?s care impacted by: Other (anxiety ) Social Determinants Patient?s care significantly limited by Social Determinants of Health including: Other Social Determinant of Health Discharge Plan Discharge Clinical Impression: Dizziness, Anxiety Patient Disposition: Home, Self-Care Instructions: Anxiety (ED) Additional Instructions: Take your medications as prescribed. If you were prescribed antibiotics today, it is important that you take your medication to their entirety, do not skip any doses, do not finish them early. Follow-up with your primary care provider this week. Return to the emergency department with new or worsening symptoms. Such as fevers, chills, chest pain, shortness of breath, nausea, vomiting, dizziness, headache, vision changes, lethargy In case of emergency call 911 Prescriptions: New meclizine 25 mg tablet 25 mg PO DAILY PRN (Reason: dizziness) Qty: 7 0RF No Action epsuoadkkf-spkuokvvsjlxt-qpzt [Fioricet] 50-300-40 mg capsule 1 cap PO Q4-6H PRN (Reason: pain) Qty: 14 0RF gabapentin 100 mg capsule 100 mg PO BID Qty: 30 0RF cyclobenzaprine 10 mg tablet 10 mg PO BEDTIME PRN (Reason: muscle spasm) Qty: 7 0RF ketorolac 10 mg tablet 10 mg PO TID PRN (Reason: pain) 5 Days Qty: 15 0RF lorazepam 0.5 mg tablet 0.5 mg PO BEDTIME PRN (Reason: anxiety) Qty: 10 0RF benzonatate 100 mg capsule 100 mg PO BID PRN (Reason: cough) Qty: 10 0RF hydroxyzine HCl 50 mg tablet 50 mg PO BID PRN (Reason: anxiety) diltiazem HCl 120 mg capsule,extended release 24hr 120 mg PO DAILY meloxicam 15 mg tablet 15 mg PO DAILY omeprazole 20 mg capsule,delayed release(DR/EC) 20 mg PO DAILY Qty: 30 3RF Referrals: Simi Noland NP [Primary Care Provider] - 2 days Stand Alone Forms: Work/School Release
[2024-01-26 10:45] LABS: Alanine Aminotransferase 7 U/L (0-31); Alkaline Phosphatase 43 U/L (39-117); Anion Gap 9 (12-20); Aspartate Amino Transferase 12 U/L (5-31); Blood Urea Nitrogen 9 mg/dL (9-16); Carbon Dioxide 27 mmol/L (22-29); Chloride 112 mmol/L (96-108); Creatinine Clr Calc Pharmacy 93.2; Estimated Glomerular Filt Rate > 60; Glucose Random 94 mg/dL (60-115); HCG Quantitative < 2 mIU/mL; Potassium 4.8 mmol/L (3.3-5.1); Sodium 143 mmol/L (135-145); Total Protein 6.6 g/dL (6.5-8.0)
--- NOTE | 2024-01-26 10:46 | ECG_ITS ---
Test Reason : dizziness Blood Pressure : / mmHG Vent. Rate : 060 BPM Atrial Rate : 060 BPM P-R Int : 136 ms QRS Dur : 086 ms QT Int : 390 ms P-R-T Axes : 063 038 020 degrees QTc Int : 390 ms Normal sinus rhythm Normal ECG When compared with ECG of 19-MAY-2023 14:37, Premature ventricular complexes are no longer Present Referred By: Froilan Del Toro Electronically Signed By:Kuldeep Cheung
[2024-01-26 10:49] VITALS: BP 116/66; PULSE 63
[2024-01-26 10:53] VITALS: BP 116/72; PULSE 62
[2024-01-26 10:54] VITALS: BP 110/74; PULSE 79
[2024-01-26 11:41] LABS: Appearance Urine Clear; Color Urine Yellow; Glucose Urine UA Negative (Negative); Leukocyte Esterase Urine Negative (Negative); Nitrite Urine Negative (Negative); PH 8.5 (5.0-9.0); Specific Gravity - Urine 1.015 (1.005-1.025); UMIC TRIGGER UACC YES; Urine Blood Small (1+) (Negative); Urine Ketones Negative (Negative); Urine Protein Negative (Neg-Trace)
[2024-01-26 11:48] LABS: Bacteria Urine Trace (None Seen); Hyaline Casts Urine 0-2 /LPF (0-2); RBC Urine 0-2 /HPF (0-2); WBC Urine 0-5 /HPF (0-5)
== END 2024-01-26 11:37 | disposition home or self-care (01) ==
PROVIDERS: Physician Assistant Medical; Emergency Provider Emergency Medicine; PCP Nurse Practitioner Family
DX: R42 Dizziness and giddiness (principal); F41.9 Anxiety disorder, unspecified; Z11.52 Encounter for screening for COVID-19; Z20.828 Contact with and (suspected) exposure to other viral communicable diseases
CPT/HCPCS: 0241U; 80053; 81001; 84702; 85025; 87651; 93005; 99283; 99284

== ENCOUNTER → 2024-01-26 10:46 | Outpatient (BNV) | payer OTHER, SELFPAY | PROVIDERS: Emergency Provider Emergency Medicine; PCP Nurse Practitioner Family; Visit Provider Internal Medicine Cardiovascular Disease | DX: R42 Dizziness and giddiness (principal) | CPT/HCPCS: 93010 ==

== ENCOUNTER 2024-01-30 15:11 | Emergency (ER) | payer OTHER, SELFPAY ==
[2024-01-30 16:05] VITALS: BP 123/73; PULSE 80; RESP 19; TEMP 36.6; O2SAT 98; BMI 25.5
--- NOTE | 2024-01-30 16:21 | ED.HEATRA ---
HPI - Head Injury General Chief complaint: Head Injury Stated complaint: fell at home and hit her head Source: patient Mode of arrival: ambulatory Limitations: no limitations History of Present Illness HPI Narrative: 38-year-old female with a history of anxiety presents to the ER with complaints of headache after a fall with a head strike. No LOC. NO AC therapy use. No complaints of vomiting, dizziness, neck pain, neck stiffness, upper or lower extremity weakness/numbness/tingling. Related Data Home Medications Medication Instructions Recorded Confirmed hydroxyzine HCl 50 mg tablet 50 mg PO BID PRN anxiety 04/23/23 diltiazem HCl 120 mg 120 mg PO DAILY 08/02/23 capsule,extended release 24 hr meloxicam 15 mg tablet 15 mg PO DAILY 01/19/24 Previous Rx's Medication Instructions Recorded gabapentin 100 mg capsule 100 mg PO BID #30 caps 04/19/23 cyclobenzaprine 10 mg tablet 10 mg PO BEDTIME PRN muscle spasm 08/26/23 #7 tabs ketorolac 10 mg tablet 10 mg PO TID PRN pain 5 days #15 08/26/23 tabs lorazepam 0.5 mg tablet 0.5 mg PO BEDTIME PRN anxiety #10 10/17/23 tabs benzonatate 100 mg capsule 100 mg PO BID PRN cough #10 caps 12/29/23 cxajifhtrz-vtzlobbhvkhze-kacotvvx 1 cap PO Q4-6H PRN pain #14 caps 01/07/24 50 mg-300 mg-40 mg capsule (Fioricet) omeprazole 20 mg capsule,delayed 20 mg PO DAILY #30 caps 01/19/24 release meclizine 25 mg tablet 25 mg PO DAILY PRN dizziness #7 01/26/24 tabs Allergies Allergy/AdvReac Type Severity Reaction Status Date / Time No Known Allergies Allergy Unknown NOT Verified 01/30/24 16:04 APPLICABLE Review of Systems Review of Systems: Yes all other systems are reviewed and are negative Constitutional: Constitutional: Reports no additional constitutional complaints, Denies body ache(s), Denies chills, Denies fever(s), Reports headache(s) and Denies weakness Eyes: Eyes: Reports no additional eye complaints and Denies change in vision ENT: Reports system reviewed and no additional complaints, except as documented, Denies dizziness, Reports headache(s), Denies nasal congestion, Denies nasal discharge and Denies neck pain Cardiovascular: Cardiovascular: Reports no additional cardiovascular complaints, Denies chest pain, Denies leg edema and Denies dyspnea Respiratory: Respiratory: Reports no additional respiratory complaints, Denies cough and Denies dyspnea Gastrointestinal: Gastrointestinal: Reports no additional gastrointestinal complaints, Denies abdominal pain, Denies diarrhea, Denies nausea and Reports vomiting Genitourinary: Genitourinary: Reports no additional female genitourinary complaints and Denies urinary incontinence Musculoskeletal: Musculoskeletal: Reports no additional musculoskeletal complaints, Denies back pain, Denies arthralgias, Denies joint swelling, Denies neck pain, Denies numbness and Denies tingling Integumentary/Breasts: Skin/Breast: Reports system reviewed and no additional complaints, except as docu and Denies rash Neurologic: Reports system reviewed and no additional complaints, except as documented, Denies Abnormal speech present, Denies dizziness, Reports headache(s), Denies numbness, Denies tingling and Denies weakness PMFSH Past Medical History Attestation statement: The following information was validated with the patient. Source: old records reviewed and nursing notes reviewed Medical History Lyme disease Heart palpitations Anxiety Cholecystectomy planned delivery delivered Social History Social History Alcohol intake: never Patient Tobacco Use Status: Current everyday Tobacco user Advance Directives: No Advance Directives Information Provided: No Physical Exam Vital Signs: Vital Signs: Last Vital Signs Temp 98 F 01/30/24 16:05 Pulse 80 01/30/24 16:05 Resp 19 01/30/24 16:05 BP 123/73 01/30/24 16:05 Pulse Ox 98 01/30/24 16:05 O2 Del Method Room Air 01/30/24 16:05 BMI result Body Mass Index 25.5 Const: General: cooperative, healthy appearing, comfortable and no acute distress Orientation/consciousness: patient oriented x3 Limitations: no limitations HEENT: Other: No hemotympanum Head: Yes normal to inspection, No Morales's sign and No raccoon eyes Ears: hearing grossly normal bilaterally and TM's normal bilaterally General nose exam: Normal external nose present Face and sinus: Yes normal facial exam Mouth: Normal oral and palatal mucosa present Throat: Yes posterior oropharynx normal, Yes tonsils normal and Yes uvula midline Eyes: General: appearance normal, both eyes and all related structures Pupils: Equal, round and reactive pupils present Neck: Other: No cervical step-offs or deformed Neck: Yes normal visual inspection, Yes full ROM, Yes no lymphadenopathy and Yes no meningeal signs Chest: Chest palpation & inspection: normal inspection of the chest Resp: Effort & Inspection: normal respiratory effort Auscultation: clear to auscultation bilaterally Cardio: Rate: regular rate Rhythm: regular rhythm Peripheral pulses: Peripheral pulses 2+ throughout GI: Inspection: Yes normal to inspection Palpation (GI): Soft to palpation and nontender Auscultation: normal bowel sounds Back/Spine/Pelvis: Thoracic/Lumbar Spine: thoracic and lumbar spine normal to inspection Skin: General skin exam: no rashes or lesions noted Neuro: General: patient oriented x3, moves all extremities, no meningeal signs, no focal motor deficits and normal sensation to monofilament Cranial nerves: Yes CN's II-XII intact bilaterally, Yes Equal, round and reactive pupils present, Yes Bilaterally intact EOM present, Yes Nystagmus not present, Yes Normal facial strength present and Yes Midline tongue present Cognition (Neuro): normal cognition Speech: No Abnormal speech present Gait exam (Neuro): Normal gait present Motor exam (neuro): 5/5 motor strength present throughout Sensory Exam: Normal double simultaneous stimulation for sensation Extrem: General: Yes normal to inspection Medical Decision Making Medical Decision Making MDM Narrative: 38-year-old female with a history of anxiety presents to the ER with complaints of headache after a fall with a head strike. No LOC. NO AC therapy use. No complaints of vomiting, dizziness, neck pain, neck stiffness, upper or lower extremity weakness/numbness/tingling. Normal neuro exam with no focal deficits. Reviewed [place] head CT rule which does not warrant CT head imaging. I did review worrisome signs and symptoms with the patient and when to return to the emergency room. Comfortable plan for discharge home Differential Diagnosis Differential Diagnoses: The differential diagnosis associated with the presentation includes Contusion, concussion Low suspicion for basilar skull fracture or intracranial hemorrhage Admission/Observation Consideration of admission/observation: Escalation of care including admission/observation considered Tests considered The following testing was considered but not selected: Reviewed [place] head CT rule which suggest no need for CT imaging Prescription Management I considered prescription management with: Pain Medication Discharge Plan Discharge Clinical Impression: Closed head injury Patient Disposition: Home, Self-Care Instructions: Head Injury (ED) Additional Instructions: Return for severe headache, vomiting, change in behavior You may take Motrin or Tylenol for any pain as needed You may have a mild headache. Limit screen time Prescriptions: No Action wfpehffdsd-jusqitbacipux-kzax [Fioricet] 50-300-40 mg capsule 1 cap PO Q4-6H PRN (Reason: pain) Qty: 14 0RF gabapentin 100 mg capsule 100 mg PO BID Qty: 30 0RF cyclobenzaprine 10 mg tablet 10 mg PO BEDTIME PRN (Reason: muscle spasm) Qty: 7 0RF ketorolac 10 mg tablet 10 mg PO TID PRN (Reason: pain) 5 Days Qty: 15 0RF lorazepam 0.5 mg tablet 0.5 mg PO BEDTIME PRN (Reason: anxiety) Qty: 10 0RF benzonatate 100 mg capsule 100 mg PO BID PRN (Reason: cough) Qty: 10 0RF meclizine 25 mg tablet 25 mg PO DAILY PRN (Reason: dizziness) Qty: 7 0RF hydroxyzine HCl 50 mg tablet 50 mg PO BID PRN (Reason: anxiety) diltiazem HCl 120 mg capsule,extended release 24hr 120 mg PO DAILY meloxicam 15 mg tablet 15 mg PO DAILY omeprazole 20 mg capsule,delayed release(DR/EC) 20 mg PO DAILY Qty: 30 3RF Referrals: Simi Noland, [facility] [Primary Care Provider] - 1 week
== END 2024-01-30 16:28 | disposition home or self-care (01) ==
PROVIDERS: Emergency Provider Student in an Organized Health Care Education/Training Program; PCP Nurse Practitioner Family
DX: S09.90XA Unspecified injury of head, initial encounter (principal); W01.10XA Fall on same level from slipping, tripping and stumbling with subsequent striking against unspecified object, initial encounter; Y93.9 Activity, unspecified; Y92.89 Other specified places as the place of occurrence of the external cause; Y99.8 Other external cause status; Z79.899 Other long term (current) drug therapy
CPT/HCPCS: 99282

== ENCOUNTER 2024-01-31 15:31 | Emergency (ER) | payer OTHER, SELFPAY ==
--- NOTE | ~2024-01-31 | CT_ITS ---
EXAM: Noncontrast CT scan of the head and cervical spine. INDICATION: Head trauma. Dizziness. COMPARISON: Head CT 06/14/[address] head/cervical spine 08/16/2021 TECHNIQUE: Axial slices were obtained from skull base to vertex and displayed. This was followed by helical, multislice, multidetector axial images from the occiput to the upper thorax. Coronal and sagittal reformats of the cervical spine in addition to coronal reformats of the head were obtained at the technologist workstation. DLP: 794 mGy-cm FINDINGS: HEAD: There is no evidence of acute intracranial hemorrhage or territorial infarction. No abnormal mass effect or midline shift is appreciated. Garcia-white differentiation is well preserved. No extra-axial fluid collections. The ventricular system and cortical sulci are normal in size. The osseous structures and soft tissues are normal. Polypoid mucosal thickening noted within visualized portions of the maxillary sinuses. The other visualized paranasal sinuses and mastoid air cells are well aerated. SPINE: Again noted is straightening of the normal cervical lordosis. Alignment is otherwise unremarkable. Normal C1/C2 articulation. Cervical vertebral body heights are maintained. Cervical disc spaces are well-maintained. There are no significant degenerative changes of the cervical spine. Visualized lung apices are well aerated. CT/CT head/brain wo IV con IMPRESSION: 1. No acute intracranial pathology. 2. No fractures or dislocations of the cervical spine. 3. Mild sinus disease.
--- NOTE | ~2024-01-31 | CT_ITS ---
EXAM: Noncontrast CT scan of the head and cervical spine. INDICATION: Head trauma. Dizziness. COMPARISON: Head CT 06/14/[address] head/cervical spine 08/16/2021 TECHNIQUE: Axial slices were obtained from skull base to vertex and displayed. This was followed by helical, multislice, multidetector axial images from the occiput to the upper thorax. Coronal and sagittal reformats of the cervical spine in addition to coronal reformats of the head were obtained at the technologist workstation. DLP: 794 mGy-cm FINDINGS: HEAD: There is no evidence of acute intracranial hemorrhage or territorial infarction. No abnormal mass effect or midline shift is appreciated. Garcia-white differentiation is well preserved. No extra-axial fluid collections. The ventricular system and cortical sulci are normal in size. The osseous structures and soft tissues are normal. Polypoid mucosal thickening noted within visualized portions of the maxillary sinuses. The other visualized paranasal sinuses and mastoid air cells are well aerated. SPINE: Again noted is straightening of the normal cervical lordosis. Alignment is otherwise unremarkable. Normal C1/C2 articulation. Cervical vertebral body heights are maintained. Cervical disc spaces are well-maintained. There are no significant degenerative changes of the cervical spine. Visualized lung apices are well aerated. CT/CT cervical spine wo IV con IMPRESSION: 1. No acute intracranial pathology. 2. No fractures or dislocations of the cervical spine. 3. Mild sinus disease.
[2024-01-31 15:46] VITALS: BP 117/80; PULSE 86; RESP 16; TEMP 37.4; O2SAT 98; BMI 25.5
--- NOTE | 2024-01-31 15:53 | ED_ITS ---
HPI - General Adult General Chief complaint: Headache Stated complaint: fell head hit head, dizzy Time Seen by Provider: 01/31/24 18:01 Source: patient Mode of arrival: ambulatory Limitations: no limitations History of Present Illness HPI narrative: Patient is a 38-year-old female who presents emergency department for evaluation of intermittent dizziness and headache in the setting of a mechanical fall yesterday with head strike on stairs, no LOC. was advised to return to the emergency department with any new or worsening symptoms. Denies vision changes, neck pain, vomiting, numbness or tingling of the extremities, bladder bowel dysfunction. Related Data Home Medications Medication Instructions Recorded Confirmed hydroxyzine HCl 50 mg tablet 50 mg PO BID PRN anxiety 04/23/23 diltiazem HCl 120 mg 120 mg PO DAILY 08/02/23 capsule,extended release 24 hr meloxicam 15 mg tablet 15 mg PO DAILY 01/19/24 Previous Rx's Medication Instructions Recorded gabapentin 100 mg capsule 100 mg PO BID #30 caps 04/19/23 cyclobenzaprine 10 mg tablet 10 mg PO BEDTIME PRN muscle spasm 08/26/23 #7 tabs ketorolac 10 mg tablet 10 mg PO TID PRN pain 5 days #15 08/26/23 tabs lorazepam 0.5 mg tablet 0.5 mg PO BEDTIME PRN anxiety #10 10/17/23 tabs benzonatate 100 mg capsule 100 mg PO BID PRN cough #10 caps 12/29/23 ivobrnlvqf-fifksohybpoqj-fokdpneq 1 cap PO Q4-6H PRN pain #14 caps 01/07/24 50 mg-300 mg-40 mg capsule (Fioricet) omeprazole 20 mg capsule,delayed 20 mg PO DAILY #30 caps 01/19/24 release meclizine 25 mg tablet 25 mg PO DAILY PRN dizziness #7 01/26/24 tabs Allergies Allergy/AdvReac Type Severity Reaction Status Date / Time No Known Allergies Allergy Unknown NOT Verified 01/30/24 16:04 APPLICABLE Review of Systems Review of Systems: Yes all other systems are reviewed and are negative PMFSH Past Medical History Attestation statement: The following information was validated with the patient. Source: old records reviewed Medical History Lyme disease Heart palpitations Anxiety Cholecystectomy planned delivery delivered Social History Social History Alcohol intake: never Patient Tobacco Use Status: Current everyday Tobacco user Advance Directives: No Advance Directives Information Provided: No Physical Exam ED Vital Signs: Vital Signs - 24 hr 01/31/24 15:46 01/31/24 18:40 Temperature 99.3 F 98.2 F Pulse Rate 86 70 Respiratory Rate 16 16 Blood Pressure 117/80 122/79 Pulse Oximetry 98 100 Oxygen Delivery Method Room Air Room Air BMI result Body Mass Index 25.5 Appearance: Alert.?Oriented to person, place and time. No acute distress.?Normal affect. Head: Normocephalic Eyes: Pupils equal, round and reactive to light. EOMI. Conjunctiva and sclera normal? No Morales sign noted. No raccoon eyes noted ENT: No septal hematoma, nares patent bilaterally. External auditory canal normal tympanic membrane pearly milligan and intact bilaterally. Dentition normal, no fractured teeth. No lesions or lacerations of oropharynx. Uvula midline. Moist mucous membranes. Neck: Normal inspection.? Neck supple.??No palpable tenderness, step-off, deformities. CVS: Heart sounds normal. Normal heart rate and rhythm.? Pulses normal.?? Respiratory: No respiratory distress.? Lung sounds clear to auscultation bilaterally?? Abdomen: Soft and non-tender. Normoactive bowel sounds. ?? Skin: Skin warm and dry.? Normal skin color.? Normal skin turgor.?? Extremities: No lower extremity edema.? Neuro: Moves all extremities spontaneously. Sensation intact bilaterally. CN II- XII intact. No focal neuro deficits. NIH Stroke Scale Time: 18:15 Level of Consciousness: Alert Level of Consciousness Questions: Answers both questions correctly Level of Consciousness Commands: Performs both tasks correctly Best Gaze: Normal Visual: No visual loss Facial Palsy: Normal Motor Arm (Right): No drift Motor Arm (Left): No drift Motor Leg (Right): No drift Motor Leg (Left): No drift Limb Ataxia: Absent Sensory: Normal Best Language: No aphasia Dysarthia: Normal Extinction and Inattention: No abnormality Score: 0 Course Course Course Narrative: RME: 38 yold female with head trauma yesterday presenting to the ED For headache and dizziness. Head CT scan ordered. patient hit head on stairs Medical Decision Making Medical Decision Making [facility] Narrative: Patient is a 38-year-old female who presents emergency department for evaluation of intermittent headache and dizziness in the setting of mechanical fall yesterday with head strike and no loss of consciousness. On exam has no focal neurological deficits. [place] head CT score 0. She returns today for re- evaluation endorsing headache and dizziness. CT of the head and cervical spine was obtained prior to my assumption of care, no acute intracranial pathology, no fracture, no subluxation. Discussed signs and symptoms associated with concussion and appropriate management. Advised outpatient follow-up with primary care provider. Discussed worrisome signs and symptoms that would warrant re-evaluation emergency department. All questions answered. Stable for discharge. Differential Diagnosis Differential Diagnoses: The differential diagnosis associated with the presentation includes (As noted above) Admission/Observation Consideration of admission/observation: Escalation of care including admission/observation considered (As noted above) Independent Interpretation I performed an independent interpretation of an: CT Scan (No ICH, no fracture) Radiology Impression Discussion of test interpretation with radiology: I have reviewed the radiologist's reading. Radiologist Impression: CT/CT head/brain wo IV con IMPRESSION: 1. No acute intracranial pathology. 2. No fractures or dislocations of the cervical spine. 3. Mild sinus disease. Prescription Management I considered prescription management with: Pain Medication (Acetaminophen/ibupro fen) Discharge Plan Discharge Clinical Impression: Concussion Patient Disposition: Home, Self-Care Instructions: Concussion (ED) Additional Instructions: You can take ibuprofen 200 mg, 3 tablets (600mg) every 6-8 hours as needed for pain, in addition to Tylenol 500 mg, 2 tablets (1,000mg) every 4-6 hours as needed for pain, but not to exceed 3 doses daily (3,000mg).? Follow-up with your primary care provider. Return back to emergency department any new or worsening symptoms or concerns. Prescriptions: No Action trpzespbuo-fcbowsieaodbf-rdla [Fioricet] 50-300-40 mg capsule 1 cap PO Q4-6H PRN (Reason: pain) Qty: 14 0RF gabapentin 100 mg capsule 100 mg PO BID Qty: 30 0RF cyclobenzaprine 10 mg tablet 10 mg PO BEDTIME PRN (Reason: muscle spasm) Qty: 7 0RF ketorolac 10 mg tablet 10 mg PO TID PRN (Reason: pain) 5 Days Qty: 15 0RF lorazepam 0.5 mg tablet 0.5 mg PO BEDTIME PRN (Reason: anxiety) Qty: 10 0RF benzonatate 100 mg capsule 100 mg PO BID PRN (Reason: cough) Qty: 10 0RF meclizine 25 mg tablet 25 mg PO DAILY PRN (Reason: dizziness) Qty: 7 0RF hydroxyzine HCl 50 mg tablet 50 mg PO BID PRN (Reason: anxiety) diltiazem HCl 120 mg capsule,extended release 24hr 120 mg PO DAILY meloxicam 15 mg tablet 15 mg PO DAILY omeprazole 20 mg capsule,delayed release(DR/EC) 20 mg PO DAILY Qty: 30 3RF Referrals: Simi Noland NP [Primary Care Provider] - Interventions: ED Discharge Assessment Last Done: 01/31/24 18:45 Discharge Date/Time: 01/31/24 18:45
[2024-01-31 18:40] VITALS: BP 122/79; PULSE 70; RESP 16; TEMP 36.8; O2SAT 100
== END 2024-01-31 18:45 | disposition home or self-care (01) ==
PROVIDERS: Emergency Provider Internal Medicine; PCP Nurse Practitioner Family
DX: S06.0X0A Concussion without loss of consciousness, initial encounter (principal); W19.XXXA Unspecified fall, initial encounter; Y93.9 Activity, unspecified; Y92.9 Unspecified place or not applicable; Y99.9 Unspecified external cause status
CPT/HCPCS: 70450; 72125; 99283; 99284

== ENCOUNTER 2024-02-11 10:05 | Emergency (ER) | payer OTHER, SELFPAY ==
--- NOTE | ~2024-02-11 | US_ITS ---
EXAMINATION: US RETROPERITONEAL LIMITED (RENAL ONLY) CLINICAL INFORMATION: Left-sided flank pain. COMPARISON: None available. TECHNIQUE: Routine grayscale imaging of kidneys is performed. FINDINGS: RIGHT KIDNEY: 11.3 x 3.4 x 5.5 cm (SAG x AP x TRV). The kidney is normal in size, contour, and echogenicity. Renal cortical thickness is normal. No calculi or focal parenchymal lesions. No hydronephrosis. LEFT KIDNEY: 11.2 x 4.6 x 5.7 cm (SAG x AP x TRV). The kidney is normal in size, contour, and echogenicity. Renal cortical thickness is normal. No calculi or focal parenchymal lesions. No hydronephrosis. US/US renal BI IMPRESSION: Unremarkable renal ultrasound.
[2024-02-11 10:22] VITALS: BP 120/67; PULSE 72; RESP 18; TEMP 36.8; O2SAT 100; BMI 23.8
[2024-02-11 10:39] LABS: MANUAL DIFF FLAG NO
[2024-02-11 10:43] LABS: UPreg QC Valid YES; Urine Pregnancy NEGATIVE (NEGATIVE)
[2024-02-11 10:44] LABS: Appearance Urine Clear; Basophils Percent Auto 0.5 % (0-2); Color Urine Yellow; Eosinophils Absolute Auto 0.1 X10*3/uL (0.0-0.4); Glucose Urine UA Negative (Negative); Hematocrit 40.1 % (37.0-47.0); Hemoglobin 13.4 g/dl (12.0-16.0); Imm Gran Abs Auto 0.02 X10*3/uL (0.00-0.03); Imm Gran Pct Auto 0.3 % (0.0-0.4); Leukocyte Esterase Urine Trace (Negative); Lymphocytes Absolute Auto 2.2 X10*3/uL (1.2-4.9); Mean Corpuscular HGB Conc 33.4 g/dl (31.0-35.0); Mean Corpuscular Hemoglobin 30.8 pg (27.0-33.0); Mean Corpuscular Volume 92.2 fL (80.0-98.0); Monocytes Absolute Auto 0.7 X10*3/uL (0.1-1.2); Monocytes Percent Auto 8.7 % (2-11); Neutrophils Absolute Auto 4.7 x10*3/uL (2.0-8.3); Neutrophils Percent Auto 60.5 % (45-73); Nitrite Urine Negative (Negative); PH 8.5 (5.0-9.0); Platelet Count 202 X10*3/uL (160-400); Red Blood Count 4.35 X10*6/uL (4.20-5.50); Red Cell Distribution Width 13.2 % (11.0-16.0); Specific Gravity - Urine 1.025 (1.005-1.025); UMIC TRIGGER UACC YES; Urine Blood Negative (Negative); Urine Ketones Negative (Negative); Urine Protein Negative (Neg-Trace); White Blood Count 7.7 X10*3/uL (4.8-10.8)
[2024-02-11 10:46] LABS: Bacteria Urine 1+ (None Seen); Hyaline Casts Urine 0-2 /LPF (0-2); RBC Urine 0-2 /HPF (0-2); WBC Urine 0-5 /HPF (0-5)
[2024-02-11 10:57] LABS: Anion Gap 13 (12-20); Blood Urea Nitrogen 9 mg/dL (9-16); Calcium 9.3 mg/dL (8.4-10.2); Carbon Dioxide 25 mmol/L (22-29); Chloride 109 mmol/L (96-108); Creatinine Clr Calc Pharmacy 111.2; Estimated Glomerular Filt Rate > 60; Glucose Random 91 mg/dL (60-115); Sodium 142 mmol/L (135-145)
--- NOTE | 2024-02-11 15:02 | ED.ABDPAIN ---
HPI - Abdominal Pain General Chief Complaint: Abdominal Pain Stated Complaint: L Side & Back Pain Time Seen by Provider: 02/11/24 14:50 Source: patient and old records reviewed Mode of arrival: ambulatory Limitations: no limitations History of Present Illness HPI narrative: 38 yo female with PMH of palpitations, anxiety, concussion, renal colic here with intermittent L flank pain that wraps around x 2 days no fevers, no n/v worried about stones and UTI. MD elicited complaint: flank pain Pertinent past history: kidney stones Onset (ago): day(s) (2) Pain Consistency: intermittent Location: L flank Severity: moderate Quality: aching Radiation: other (back and groin) Migration to: no migration Exacerbating factors: nothing Relieving factors: nothing Context: history of similar episodes Associated symptoms: dysuria Treatments prior to arrival: other (tylenol) Related Data Home Medications Medication Instructions Recorded Confirmed hydroxyzine HCl 50 mg tablet 50 mg PO BID PRN anxiety 04/23/23 diltiazem HCl 120 mg 120 mg PO DAILY 08/02/23 capsule,extended release 24 hr meloxicam 15 mg tablet 15 mg PO DAILY 01/19/24 Previous Rx's Medication Instructions Recorded gabapentin 100 mg capsule 100 mg PO BID #30 caps 04/19/23 cyclobenzaprine 10 mg tablet 10 mg PO BEDTIME PRN muscle spasm 08/26/23 #7 tabs ketorolac 10 mg tablet 10 mg PO TID PRN pain 5 days #15 08/26/23 tabs lorazepam 0.5 mg tablet 0.5 mg PO BEDTIME PRN anxiety #10 10/17/23 tabs benzonatate 100 mg capsule 100 mg PO BID PRN cough #10 caps 12/29/23 dbafjcwhxc-rjnxggnlhjtby-zxeivljt 1 cap PO Q4-6H PRN pain #14 caps 01/07/24 50 mg-300 mg-40 mg capsule (Fioricet) omeprazole 20 mg capsule,delayed 20 mg PO DAILY #30 caps 01/19/24 release meclizine 25 mg tablet 25 mg PO DAILY PRN dizziness #7 01/26/24 tabs cyclobenzaprine 10 mg tablet 10 mg PO TID PRN muscle spasm #20 02/11/24 tabs Allergies Allergy/AdvReac Type Severity Reaction Status Date / Time No Known Allergies Allergy Unknown NOT Verified 02/11/24 10:22 APPLICABLE Review of Systems Review of Systems Constitutional : No Weight loss, No Fever, No Chills ENT/Mouth : No sore throat, No Rhinorrhea Eyes: No Swelling, No Redness Cardiovascular : No Chest Pain, No SOB, NoEdema Respiratory : No Cough, No Sputum, No Wheezing Gastrointestinal : no Nausea, noVomiting, no Diarrhea, positive abdominal Pain, No Hematochezia, No Melena Genitourinary : pos Dysuria, No Urinary Frequency, No Hematuria, No Urgency Musculoskeletal : No joint pain, No Myalgias, No Joint Swelling Skin : No Skin Lesions, No rash Neuro : No Weakness, No Numbness, No Dizziness, No Headache All other systems reviewed and are negative. FOR[facility]LY [facility], [facility] Past Medical History Attestation statement: The following information was validated with the patient. Source: old records reviewed Medical History Lyme disease Heart palpitations Anxiety Cholecystectomy planned delivery delivered Social History Social History Alcohol intake: never Patient Tobacco Use Status: Current everyday Tobacco user Advance Directives: No Advance Directives Information Provided: No Physical Exam ED Vital Signs: Vital Signs - 24 hr 02/11/24 10:22 Temperature 98.2 F Pulse Rate 72 Respiratory Rate 18 Blood Pressure 120/67 Pulse Oximetry 100 Oxygen Delivery Method Room Air BMI result Body Mass Index 23.8 Appearance: Alert. Oriented X3. No acute distress. Eyes: Pupils equal, round and reactive to light. ENT: Pharynx normal. Neck: Normal inspection. Neck supple. CVS: Normal heart rate and rhythm. Pulses normal. Respiratory: No respiratory distress. Breath sounds normal. Abdomen: Soft and nontender. Back: left lower back above iliac crest reproduces pain Skin: Skin warm and dry. Normal skin color. Normal skin turgor. Extremities: No lower extremity edema. No calf ttp Neuro: Oriented X 3. No motor deficit. No sensory deficit. Medical Decision Making Medical Decision Making MDM Narrative: 38 yo female with PMH of palpitations, anxiety, concussion, renal colic here with low back pain but no neurologic findings no fevers vomiting not toxic appearing denies trauma at this time will obtain UA, US and basic labs, not toxic seems more MSK in nature. Tolerating PO Differential Diagnosis Differential Diagnoses: The differential diagnosis associated with the presentation includes renal colic, MSK strain Admission/Observation Consideration of admission/observation: Escalation of care including admission/observation considered work up negative tolerating PO stable for DC Lab Data MDM Lab Attestation statement: I reviewed the patient's lab results. 02/11/24 10:34 02/11/24 10:34 Labs: Lab Results 02/11/24 Range/Units 10:34 WBC 7.7 (4.8-10.8) X10*3/uL RBC 4.35 (4.20-5.50) X10*6/uL Hgb 13.4 (12.0-16.0) g/dl Hct 40.1 (37.0-47.0) % MCV 92.2 (80.0-98.0) fL MCH 30.8 (27.0-33.0) pg MCHC 33.4 (31.0-35.0) g/dl RDW 13.2 (11.0-16.0) % Plt Count 202 (160-400) X10*3/uL MPV 11.0 (9.4-12.3) fL Immature Gran % (Auto) 0.3 (0.0-0.4) % Neut % (Auto) 60.5 (45-73) % Lymph % (Auto) 29.0 (20-40) % Starke % (Auto) 8.7 (2-11) % Eos % (Auto) 1.0 (0-4) % Baso % (Auto) 0.5 (0-2) % Lymph # (Auto) 2.2 (1.2-4.9) X10*3/uL Starke # (Auto) 0.7 (0.1-1.2) X10*3/uL Eos # (Auto) 0.1 (0.0-0.4) X10*3/uL Baso # (Auto) 0.0 (0.0-0.2) X10*3/uL Abs Immat Gran (auto) 0.02 (0.00-0.03) X10*3/uL Absolute Neuts (auto) 4.7 (2.0-8.3) x10*3/uL Absolute Nucleated RBC 0.000 (0.0-0.012) X10*3/uL Nucleated RBC % (auto) 0.0 (0.0-0.2) /100WBC Sodium 142 (135-145) mmol/L Potassium 5.0 (3.3-5.1) mmol/L Chloride 109 H (96-108) mmol/L Carbon Dioxide 25 (22-29) mmol/L Anion Gap 13 (12-20) BUN 9 (9-16) mg/dL Creatinine 0.68 (0.5-1.4) mg/dL Estim Creat Clear Calc 111.2 Estimated GFR > 60 Random Glucose 91 (60-115) mg/dL Calcium 9.3 (8.4-10.2) mg/dL Urine Color Yellow Urine Appearance Clear Urine pH 8.5 (5.0-9.0) Ur Specific [place] 1.025 (1.005-1.025) Urine Protein Negative (Neg-Trace) mg/dL Urine Glucose (UA) Negative (Negative) mg/dL Urine Ketones Negative (Negative) mg/dL Urine Blood Negative (Negative) Urine Nitrite Negative (Negative) Ur Leukocyte Esterase Trace H (Negative) Urine RBC 0-2 (0-2) /HPF Urine WBC 0-5 (0-5) /HPF Ur Squamous Epith Cells 11-20 (0-2) /HPF Urine Bacteria 1+ (None Seen) Hyaline Casts 0-2 (0-2) /LPF Urine Test NEGATIVE (NEGATIVE) Independent Interpretation I performed an independent interpretation of an: Ultrasound (normal) Radiology Impression Discussion of test interpretation with radiology: I have reviewed the radiologist's reading. External Record Review External record reviewed: Inpatient record Prescription Management I considered prescription management with: Other Discharge Plan Discharge Clinical Impression: Left flank pain Patient Disposition: Home, Self-Care Instructions: Flank Pain (ED) Additional Instructions: return for worsening pain, fevers, inability to eat or drink or any other concerns. labs and urine reassuring ultrasound normal appearing TECHNIQUE: Routine grayscale imaging of kidneys is performed. FINDINGS: RIGHT KIDNEY: 11.3 x 3.4 x 5.5 cm (SAG x AP x TRV). The kidney is normal in size, contour, and echogenicity. Renal cortical thickness is normal. No calculi or focal parenchymal lesions. No hydronephrosis. LEFT KIDNEY: 11.2 x 4.6 x 5.7 cm (SAG x AP x TRV). The kidney is normal in size, contour, and echogenicity. Renal cortical thickness is normal. No calculi or focal parenchymal lesions. No hydronephrosis. Prescriptions: New cyclobenzaprine 10 mg tablet 10 mg PO TID PRN (Reason: muscle spasm) Qty: 20 0RF No Action avqzghinzc-iumfeyxopjeml-lopy [Fioricet] 50-300-40 mg capsule 1 cap PO Q4-6H PRN (Reason: pain) Qty: 14 0RF gabapentin 100 mg capsule 100 mg PO BID Qty: 30 0RF cyclobenzaprine 10 mg tablet 10 mg PO BEDTIME PRN (Reason: muscle spasm) Qty: 7 0RF ketorolac 10 mg tablet 10 mg PO TID PRN (Reason: pain) 5 Days Qty: 15 0RF lorazepam 0.5 mg tablet 0.5 mg PO BEDTIME PRN (Reason: anxiety) Qty: 10 0RF benzonatate 100 mg capsule 100 mg PO BID PRN (Reason: cough) Qty: 10 0RF meclizine 25 mg tablet 25 mg PO DAILY PRN (Reason: dizziness) Qty: 7 0RF hydroxyzine HCl 50 mg tablet 50 mg PO BID PRN (Reason: anxiety) diltiazem HCl 120 mg capsule,extended release 24hr 120 mg PO DAILY meloxicam 15 mg tablet 15 mg PO DAILY omeprazole 20 mg capsule,delayed release(DR/EC) 20 mg PO DAILY Qty: 30 3RF Stand Alone Forms: Work/School Release
--- NOTE | 2024-02-11 15:10 | PC.NURSE ---
PT WAS DISCHARGED BY MD FROM TRIAGE
== END 2024-02-11 15:10 | disposition home or self-care (01) ==
PROVIDERS: Emergency Provider Emergency Medicine; PCP Nurse Practitioner Family
DX: R10.9 Unspecified abdominal pain (principal); Z87.442 Personal history of urinary calculi
CPT/HCPCS: 36415; 76775; 80048; 81001; 81025; 85025; 99282; 99284

== ENCOUNTER 2024-03-01 10:51 | Outpatient (REF) | payer OTHER, SELFPAY ==
[2024-03-01 13:20] LABS: Lipase 18 U/L (8-78)
[2024-03-03 21:19] LABS: Transglutaminase Ab IgG <1.0 U/mL; Transglutaminase IgA <1.0 U/mL
== END 2024-03-01 10:52 | disposition home or self-care (01) ==
LOC: HO.LAB 10:51
PROVIDERS: PCP Nurse Practitioner Family; Visit Provider Nurse Practitioner Family
DX: R13.10 Dysphagia, unspecified (principal); R10.9 Unspecified abdominal pain; K21.9 Gastro-esophageal reflux disease without esophagitis
CPT/HCPCS: 36415; 83690; 86364; 99212

== ENCOUNTER 2024-03-01 10:51 | Outpatient (AMB) | payer OTHER, SELFPAY ==
[2024-03-01 11:09] VITALS: BP 118/74; PULSE 84; BMI 24.7
--- NOTE | 2024-03-01 11:09 | MHC.OFFVIS ---
Vital Signs 03/01/24 11:09 Height 5 ft 7 in Weight 157 lb 13.616 oz BMI 24.7 BP 118/74 Blood Pressure Location Rt brachial Position Sitting Pulse 84 Intake Visit Reasons: 6 week follow up Intake Note: Nicole presents in the office in follow up of dysphagia. CC: She states she continues to have difficulty with swallowing and feels about the same. Denies having any new GI symptoms today. 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 Will check for H pylori and treat empirically if positive. Will check for celiac disease, check her lipase as well. I will see her in 6 weeks, sooner on as needed basis. Patient will be started on omeprazole to see if her symptoms will improve. Patient is agreeable to plan of care and verbalizes understanding of instructions. She was given the opportunity to ask questions and all questions answered. ? Thank you for allowing me to participate in her care Orders Orders H Pylori Breath Test Today Transglutaminase Ab IgG Today R10.9 FL barium swallow Today R13.10 Lipase Today R10.9 Transglutaminase IgA Today R10.9 Medications New omeprazole 20 mg PO DAILY 30 caps 3RF K21.9 TODAY'S VISIT: Patient is here today for follow-up. Patient had negative H pylori testing. Patient has not done her blood work yet will encourage her to go and get it done today. Patient continues to have dyspepsia with dysphagia without odynophagia. She continues to smoke tobacco every day. Patient denies any nausea or vomiting. Denies any abdominal pain or discomfort. Patient currently is taking omeprazole. Has appointment for barium swallow end of this month. Patient denies any fever or chills. ON LICENSE OF [facility] Medical History Lyme disease Heart palpitations Anxiety Cholecystectomy planned delivery delivered Surgical History S/P cholecystectomy Social History Alcohol intake: never Patient Tobacco Use Status: Current everyday Tobacco user Review of Systems Const Denies weight gain and Denies weight loss ENT Reports no additional complaints, Reports dysphagia and Denies odynophagia Card Reports no additional complaints Resp Reports no additional complaints GI Denies abdominal pain, Denies belching, Denies melena, Denies bloating, Denies change in bowel habits, Reports dysphagia, Denies excessive flatus, Denies dyspepsia, Reports heartburn (Occasional), Denies diarrhea, Denies loose stools, Denies nausea, Denies odynophagia and Denies vomiting Reports no additional complaints Musc Reports no additional complaints Neuro Reports no additional complaints Psych Reports no additional complaints Endo Reports no additional complaints Physical Exam Vital Signs: Last Vital Signs Pulse 84 03/01/24 11:09 BP 118/74 03/01/24 11:09 BMI result Body Mass Index 24.7 Const General: healthy appearing, no acute distress and well developed Nutritional Appearance: well nourished Orientation/consciousness: patient oriented x3 Resp Effort & Inspection: normal respiratory effort, able to speak in complete sentences, no tracheal deviation and symmetric chest movement Auscultation: clear to auscultation bilaterally Cardio Rate: regular rate GI Inspection: Yes normal to inspection and No distended Palpation (GI): Soft to palpation, not firm, nontender and No hepatosplenomegaly present Auscultation: normal bowel sounds General: Yes no CVA tenderness Back/Spine/Pelvis Back: no CVA tenderness Skin General skin exam: elasticity normal, turgor normal and dry skin Neuro General: patient oriented x3 Psych Appearance: grossly normal Mental Status: mental status grossly normal Results Reviewed Results Reviewed: Laboratory Tests 01/19/24 10:13 H. pylori Breath Test Negative Assessment & Plan Assessment & Plan (1) Dysphagia: Code(s): R13.10 - Dysphagia, unspecified Qualifiers: Dysphagia type: oropharyngeal phase Qualified Code(s): R13.12 - Dysphagia, oropharyngeal phase (2) GERD (gastroesophageal reflux disease): Code(s): K21.9 - Gastro-esophageal reflux disease without esophagitis Qualifiers: Esophagitis presence: esophagitis presence not specified Qualified Code(s): K21.9 - Gastro-esophageal reflux disease without esophagitis Plan Continue omeprazole daily. Encouraged patient to go and get her blood work done today. Will send patient for upper endoscopy to rule out gastritis, esophagitis, duodenitis, gastric or Pepcid ulcer, Becerra's, achalasia, Schatzki ring. Will review barium swallow report when patient gets it done. Encouraged to get it done. I will see her after the procedure, sooner on as needed basis. Patient is agreeable to this plan and verbalizes understanding of instructions. She was given the opportunity to ask questions and all questions answered. Thank you for allowing me to participate in her care
== END 2024-03-01 12:17 | disposition home or self-care (01) ==
PROVIDERS: PCP Nurse Practitioner Family; Visit Provider Nurse Practitioner Family
DX: R13.12 Dysphagia, oropharyngeal phase (principal); K21.9 Gastro-esophageal reflux disease without esophagitis
CPT/HCPCS: 99213

== ENCOUNTER 2024-03-21 08:14 | Outpatient (REF) | payer OTHER, SELFPAY ==
--- NOTE | ~2024-03-21 | FL_ITS ---
EXAMINATION: XR FLUOROSCOPY UPPER GI WITH AIR CLINICAL INFORMATION: Dysphagia. Globus sensation COMPARISON: None TECHNIQUE: Fluoroscopic air contrast upper GI examination was performed utilizing standard techniques with thin and thick barium and effervescent granules. Numerous spot images were obtained. FINDINGS: Lateral cine images of the oropharynx and hypopharynx demonstrate normal swallow mechanism with normal epiglottic inversion and soft palate elevation. No tracheal penetration, glottic or subglottic aspiration identified. No nasopharyngeal reflux present. Hypopharyngeal structures appear normal without evidence of mass or diverticulum. There was no significant cricopharyngeal achalasia. Dual and single contrast images of the esophagus demonstrate normal caliber, contour, and mucosal pattern. No evidence of stricture, mass, or ulcerations identified. Esophageal peristalsis is mildly disorganized. Surgical clips are present in the right upper quadrant consistent with prior history of cholecystectomy. No evidence of hiatus hernia identified. Gastroesophageal reflux is seen up to the midesophagus. Dual contrast and single contrast images of the stomach demonstrated normal contour and mucosal pattern without evidence of mass, ulceration, or other abnormality. Contrast freely passed into the gastric antrum and duodenal bulb without delay. Single and air-contrast images of the duodenal bulb demonstrate no abnormality. The duodenal sweep has a normal appearance, course, and mucosal fold appearance. The imaged proximal jejunum has a normal fold pattern and caliber. FLUOROSCOPY TIME: 5 minutes 16 seconds Number of Spot Images: 7 Number of Cine: 14 DOSE AREA PRODUCT: 2599 uGy-m2 (microgray-meter squared) FL/FL barium swallow with air IMPRESSION: 1. Mildly disorganized esophageal peristalsis. 2. Moderate gastroesophageal reflux. 3. Status post cholecystectomy. 4. No evidence of hiatus hernia. 5. Normal-appearing stomach, duodenum, and proximal jejunum. This procedure was performed by Binu Melendez PA-C, and supervised by Dr. Scherer
== END 2024-03-21 08:15 | disposition home or self-care (01) ==
LOC: HO.XRAY 08:14
PROVIDERS: PCP Nurse Practitioner Family; Visit Provider Nurse Practitioner Family
DX: R13.10 Dysphagia, unspecified (principal)
CPT/HCPCS: 74221

== ENCOUNTER → 2024-03-21 08:16 | Outpatient (BNV) | payer OTHER, SELFPAY | PROVIDERS: PCP Nurse Practitioner Family; Visit Provider Physician Assistant Surgical | DX: R13.10 Dysphagia, unspecified (principal) | CPT/HCPCS: 74246 ==

== ENCOUNTER 2024-05-29 15:28 | Emergency (ER) | payer OTHER, SELFPAY ==
[2024-05-29 15:32] VITALS: BP 128/77; PULSE 77; RESP 20; TEMP 37; O2SAT 100; BMI 25.8
[2024-05-29 22:00] VITALS: BP 121/77; PULSE 60; RESP 16; TEMP 36.6; O2SAT 100
[2024-05-30 00:45] VITALS: BP 134/67; PULSE 69; RESP 16; TEMP 36.6; O2SAT 97
--- NOTE | 2024-05-30 00:51 | ED.SKABFB ---
HPI - Skin/Abscess/Foreign Bdy General Chief complaint: Skin/Abscess/Foreign Body Stated complaint: rash on chest Time Seen by Provider: 05/30/24 00:41 Source: patient Mode of arrival: ambulatory Limitations: no limitations History of Present Illness ED Provider: Dr. Angelina Doshi HPI narrative: Patient comes to the emergency room complaining of a fungal rash which was diagnosed in urgent care. Patient was given a prescription for clotrimazole/betamethasone. Patient states it is starting to clear up but is not gone yet. Related Data Home Medications ?Medication ?Instructions ?Recorded ?Confirmed hydroxyzine HCl 50 mg tablet 50 mg PO BID PRN anxiety 04/23/23 diltiazem HCl 120 mg 120 mg PO DAILY 08/02/23 capsule,extended release 24 hr meloxicam 15 mg tablet 15 mg PO DAILY 01/19/24 sumatriptan succinate 50 mg tablet 50 mg PO Q2-4H PRN 03/01/24 Previous Rx's ?Medication ?Instructions ?Recorded gabapentin 100 mg capsule 100 mg PO BID #30 caps 04/19/23 ketorolac 10 mg tablet 10 mg PO TID PRN pain 5 days #15 08/26/23 tabs lorazepam 0.5 mg tablet 0.5 mg PO BEDTIME PRN anxiety #10 10/17/23 tabs benzonatate 100 mg capsule 100 mg PO BID PRN cough #10 caps 12/29/23 jtuebotalf-jneltnejqmhwp-jiztbrwr 1 cap PO Q4-6H PRN pain #14 caps 01/07/24 50 mg-300 mg-40 mg capsule (Fioricet) meclizine 25 mg tablet 25 mg PO DAILY PRN dizziness #7 01/26/24 tabs cyclobenzaprine 10 mg tablet 10 mg PO TID PRN muscle spasm #20 02/11/24 tabs esomeprazole magnesium 40 mg 40 mg PO DAILY #30 caps 03/30/24 capsule,delayed release (Nexium) ketoconazole 2 % topical cream 1 appl topical BID #30 grams 05/30/24 Allergies Allergy/AdvReac Type Severity Reaction Status Date / Time No Known Allergies Allergy Unknown NOT Verified 05/29/24 15:41 APPLICABLE Review of Systems Review of Systems: Constitutional : No Weight loss, No Fever, No Chills, No Night Sweats, No Fatigue, No Malaise ENT/Mouth : No Hearing loss, No Ear Pain, No Nasal Congestion, No Sinus Pain, No Hoarseness, No sore throat, No Rhinorrhea, No Swallowing Difficulty Eyes: No Eye Pain, No Swelling, No Redness, No Foreign Body, No Discharge, No Vision Changes Cardiovascular : No Chest Pain, No SOB, No Dyspnea on Exertion, No Orthopnea, No Edema, No Palpitations Respiratory : No Cough, No Sputum, No Wheezing, No Smoke Exposure, No Dyspnea Gastrointestinal : No Nausea, No Vomiting, No Diarrhea, No Constipation, No abdominal Pain, No Hematochezia, No Melena Genitourinary : no irregular bleeding, No Dysuria, No Urinary Frequency, No Hematuria, No Urinary Incontinence, No Urgency, No Flank Pain, No Urinary Flow Changes, No Hesitancy Musculoskeletal : No joint pain, No Myalgias, No Joint Swelling Skin : Complaining of a fungal rash on the left side of the breast Neuro : No Weakness, No Numbness, No Paresthesias, No Loss of Consciousness, No Dizziness, No Headache Psych : No Anxiety/Panic, No Depression, No SI/HI/AH/VH, No Social Issues, Heme/Lymph: No Bruising, No Bleeding,No Lymphadenopathy Endocrine : No Polyuria, No Polydipsia, No Temperature Intolerance PMFSH Past Medical History Medical History Lyme disease Heart palpitations Anxiety Cholecystectomy planned delivery delivered Surgical History S/P cholecystectomy Social History Social History Alcohol intake: never Patient Tobacco Use Status: Current everyday Tobacco user Advance Directives: No Advance Directives Information Provided: No Do you have a plan to hurt others: No Plan Physical Exam Vital Signs: Vital Signs: Last Vital Signs Temp 97.8 F 05/30/24 00:45 Pulse 69 05/30/24 00:45 Resp 16 05/30/24 00:45 BP 134/67 05/30/24 00:45 Pulse Ox 97 05/30/24 00:45 O2 Del Method Room Air 05/30/24 00:45 BMI result Body Mass Index 25.8 Const: Other: Appearance: Alert. Oriented X3. No acute distress. Eyes: Pupils equal, round and reactive to light. ENT: Pharynx normal. Neck: Normal inspection. Neck supple. No lymph nodes noted. No crepitus CVS: Normal heart rate and rhythm. Pulses normal. Normal S1 and S2 Respiratory: No respiratory distress. Breath sounds normal. No Wheezing. No rales Abdomen: Soft and nontender. No rigidity. No distention. Skin: Skin warm and dry. Normal skin color. Normal skin turgor. Patient has for patches approximately 3 mm x 3 mm each, slightly pink Extremities: No lower extremity edema. No Lacerations. No Rash Neuro: Oriented X 3. No motor deficit. No sensory deficit. Moving all extremities. No slurred speech. CN 2 through 12 grossly intact Psych: calm, cooperative, normal affect Medical Decision Making Medical Decision Making MDM Narrative: I discussed with the patient that seems that the fungal rash is improving. Overall, we will go ahead and switch to a different antifungal, I discussed with the patient that it may take weeks for the rash to clear Discharge Plan Discharge Clinical Impression: Candidiasis of breast Patient Disposition: Home, Self-Care Instructions: Skin Yeast Infection (ED) Additional Instructions: Please follow-up with your primary care physician tomorrow. If you have any worsening or new symptoms, please return to the emergency room or call 911 Prescriptions: New ketoconazole 2 % cream 1 appl topical BID Qty: 30 0RF No Action esomeprazole magnesium [Nexium] 40 mg capsule,delayed release(DR/EC) 40 mg PO DAILY Qty: 30 5RF gefqygqdcr-ejqewikixohhz-riwt [Fioricet] 50-300-40 mg capsule 1 cap PO Q4-6H PRN (Reason: pain) Qty: 14 0RF gabapentin 100 mg capsule 100 mg PO BID Qty: 30 0RF ketorolac 10 mg tablet 10 mg PO TID PRN (Reason: pain) 5 Days Qty: 15 0RF lorazepam 0.5 mg tablet 0.5 mg PO BEDTIME PRN (Reason: anxiety) Qty: 10 0RF benzonatate 100 mg capsule 100 mg PO BID PRN (Reason: cough) Qty: 10 0RF meclizine 25 mg tablet 25 mg PO DAILY PRN (Reason: dizziness) Qty: 7 0RF cyclobenzaprine 10 mg tablet 10 mg PO TID PRN (Reason: muscle spasm) Qty: 20 0RF hydroxyzine HCl 50 mg tablet 50 mg PO BID PRN (Reason: anxiety) sumatriptan succinate 50 mg tablet 50 mg PO Q2-4H PRN diltiazem HCl 120 mg capsule,extended release 24hr 120 mg PO DAILY meloxicam 15 mg tablet 15 mg PO DAILY Print Language: Senegalese
[2024-05-30 01:18] VITALS: BP 134/67; PULSE 69; RESP 16; TEMP 36.6; O2SAT 97
== END 2024-05-30 01:18 | disposition home or self-care (01) ==
PROVIDERS: Emergency Provider Emergency Medicine
DX: B37.2 Candidiasis of skin and nail (principal)
CPT/HCPCS: 99283

== ENCOUNTER 2024-06-07 16:04 | Emergency (ER) | payer OTHER, SELFPAY ==
[2024-06-07 16:14] VITALS: BP 134/77; PULSE 98; RESP 18; TEMP 36.6; O2SAT 100; BMI 26.9
--- NOTE | 2024-06-07 16:18 | ED.GENADULT ---
HPI - General Adult General Chief complaint: General Medical Stated complaint: glands in neck swollen + painful Time Seen by Provider: 06/07/24 18:31 Source: patient and RN notes reviewed Mode of arrival: ambulatory Limitations: no limitations History of Present Illness ED Provider: Brisa Clayton PA-C HPI narrative: This is a [id number]-female, with a hx of anxiety, who presents to the ER with complaints of swollen lymph nodes on neck x 2 days. Reports that she noticed increased swelling and pain to the lymph nodes in her neck. She denies any trauma to her necck. No sore throat, difficulty swallowing. No fevers, chills, congestion, chest pain, SOB, abdominal pain, nausea, vomiting or diarrhea. No drenching night sweats, no profound weight loss. No other complaints or concerns at this time, MD complaint: Swollen lymph nodes Onset (ago): day(s) Location: neck Radiation: non-radiation Severity: mild Quality: aching Pain Consistency: constant Relieving factors: none Exacerbating factors: none Associated symptoms: denies other symptoms Treatments prior to arrival: none Related Data Home Medications ?Medication ?Instructions ?Recorded ?Confirmed hydroxyzine HCl 50 mg tablet 50 mg PO BID PRN anxiety 04/23/23 diltiazem HCl 120 mg 120 mg PO DAILY 08/02/23 capsule,extended release 24 hr meloxicam 15 mg tablet 15 mg PO DAILY 01/19/24 sumatriptan succinate 50 mg tablet 50 mg PO Q2-4H PRN 03/01/24 Previous Rx's ?Medication ?Instructions ?Recorded gabapentin 100 mg capsule 100 mg PO BID #30 caps 04/19/23 ketorolac 10 mg tablet 10 mg PO TID PRN pain 5 days #15 08/26/23 tabs lorazepam 0.5 mg tablet 0.5 mg PO BEDTIME PRN anxiety #10 10/17/23 tabs benzonatate 100 mg capsule 100 mg PO BID PRN cough #10 caps 12/29/23 hhoptuhvqq-xsrfubhdquido-povannin 1 cap PO Q4-6H PRN pain #14 caps 01/07/24 50 mg-300 mg-40 mg capsule (Fioricet) meclizine 25 mg tablet 25 mg PO DAILY PRN dizziness #7 01/26/24 tabs cyclobenzaprine 10 mg tablet 10 mg PO TID PRN muscle spasm #20 02/11/24 tabs esomeprazole magnesium 40 mg 40 mg PO DAILY #30 caps 03/30/24 capsule,delayed release (Nexium) ketoconazole 2 % topical cream 1 appl topical BID #30 grams 05/30/24 Allergies Allergy/AdvReac Type Severity Reaction Status Date / Time No Known Allergies Allergy Unknown NOT Verified 06/07/24 16:17 APPLICABLE Review of Systems Review of Systems: Yes all other systems are reviewed and are negative Constitutional: Constitutional: Reports as per [facility] Past Medical History Medical History Lyme disease Heart palpitations Anxiety Cholecystectomy planned delivery delivered Surgical History S/P cholecystectomy Social History Social History Alcohol intake: never Patient Tobacco Use Status: Current everyday Tobacco user Advance Directives: No Advance Directives Information Provided: No Do you have a plan to hurt others: No Plan Physical Exam ED Vital Signs: Vital Signs - 24 hr 06/07/24 16:14 06/07/24 18:30 06/07/24 19:51 Temperature 97.8 F 97.8 F 97.8 F Pulse Rate 98 87 87 Respiratory Rate 18 16 16 Blood Pressure 134/77 112/72 112/72 Pulse Oximetry 100 100 100 Oxygen Delivery Method Room Air Room Air Room Air BMI result Body Mass Index 26.9 Const General: cooperative, comfortable and no acute distress Orientation/consciousness: patient oriented x3 Limitations: no limitations HENMT Other: Poor dentition, no ttp overlying teeth, no dental abscess noted Head: Yes normal to inspection, Yes normocephalic and Yes atraumatic Ears: hearing grossly normal bilaterally and TM's normal bilaterally General nose exam: Normal external nose present Face and sinus: Yes normal facial exam Mouth: Normal oral and palatal mucosa present, oropharynx normal and moist mucous membranes Throat: Yes posterior oropharynx normal Eyes General: appearance normal, both eyes and all related structures Eyelids: Yes eyelids normal Conjunctivae: conjunctivae normal Sclerae: sclerae normal Pupils: Equal, round and reactive pupils present EOM: EOMs intact bilaterally Neck Other: Bilateral anterior lymphadenopathy noted, no other palpable masses. No nuchal rigidity Neck: Yes normal visual inspection, Yes full ROM and Yes no lymphadenopathy Lymphatic: no lymphadenopathy noted Chest Chest palpation & inspection: normal inspection of the chest Resp Effort & Inspection: normal respiratory effort and able to speak in complete sentences Auscultation: clear to auscultation bilaterally, no crackles, no rales, no rhonchi and no wheezes Cardio Rate: regular rate Rhythm: regular rhythm Heart sounds: S1 normal heart sound present and S2 normal heart sound present GI Inspection: Yes normal to inspection Skin General skin exam: no rashes or lesions noted Trauma: no lacerations or abrasions Wounds: no wounds Neuro General: patient oriented x3 and moves all extremities Cranial nerves: Yes Equal, round and reactive pupils present Extrem General: Yes normal to inspection Right upper extremity: normal to inspection Left upper extremity: normal to inspection Right lower extremity: normal to inspection Left lower extremity: normal to inspection Course Reevaluation(s) Reevaluation #1: labs reassuring, neg viral swabs, neg strep, neg mono. Discussed with pt that symptoms likely viral in nature. Given conservative measures for tx and return precautions. Advised if symptoms persist for >4-6 weeks to f/u. She has a PCP appointment this week. She is speaking in full sentences, under NAD, pt stable for d.c. Medical Decision Making Medical Decision Making MDM Narrative: This is a 69-skye-qdk-female, with a hx of anxiety, who presents to the ER with complaints of swollen lymph nodes on neck x 2 days. Reports that she noticed increased swelling and pain to the lymph nodes in her neck. On arrival, vital signs within normal limits. Pt with anterior cervical lymphadenopathy. No red flag symptoms to suggest malignancy at this time. DDX including viral syndrome, pharyngitis, mono, strep, OM/OE, malignancy - less likely Differential Diagnosis Differential Diagnoses: The differential diagnosis associated with the presentation includes see above Lab Data MDM Lab Attestation statement: I reviewed the patient's lab results. No leukocytosis, stable H&H, CHEM WNL, neg strep, mono, viral swabs 06/07/24 17:40 06/07/24 17:40 Labs: Lab Results 06/07/24 06/07/24 Range/Units 17:37 17:40 WBC 9.5 (4.8-10.8) X10*3/uL RBC 4.56 (4.20-5.50) X10*6/uL Hgb 13.8 (12.0-16.0) g/dl Hct 41.6 (37.0-47.0) % MCV 91.2 (80.0-98.0) fL MCH 30.3 (27.0-33.0) pg MCHC 33.2 (31.0-35.0) g/dl RDW 13.3 (11.0-16.0) % Plt Count 253 D (160-400) X10*3/uL MPV 10.9 (9.4-12.3) fL Immature Gran % (Auto) 0.8 H (0.0-0.4) % Neut % (Auto) 67.3 (45-73) % Lymph % (Auto) 23.2 (20-40) % [place] % (Auto) 7.2 (2-11) % Eos % (Auto) 1.0 (0-4) % Baso % (Auto) 0.5 (0-2) % Lymph # (Auto) 2.2 (1.2-4.9) X10*3/uL [place] # (Auto) 0.7 (0.1-1.2) X10*3/uL Eos # (Auto) 0.1 (0.0-0.4) X10*3/uL Baso # (Auto) 0.1 (0.0-0.2) X10*3/uL Abs Immat Gran (auto) 0.08 H (0.00-0.03) X10*3/uL Absolute Neuts (auto) 6.4 (2.0-8.3) x10*3/uL Absolute Nucleated RBC 0.000 (0.0-0.012) X10*3/uL Nucleated RBC % (auto) 0.0 (0.0-0.2) /100WBC Sodium 142 (135-145) mmol/L Potassium 4.9 (3.3-5.1) mmol/L Chloride 110 H (96-108) mmol/L Carbon Dioxide 22 (22-29) mmol/L Anion Gap 15 (12-20) BUN 10 (9-16) mg/dL Creatinine 0.70 (0.5-1.4) mg/dL Estim Creat Clear Calc 110.2 Estimated GFR > 60 Random Glucose 96 (60-115) mg/dL Calcium 9.6 (8.4-10.2) mg/dL Total Bilirubin 1.0 (0.0-1.0) mg/dL AST 12 (5-31) U/L ALT 6 (0-31) U/L Alkaline Phosphatase 52 (39-117) U/L Total Protein 7.3 (6.5-8.0) g/dL Albumin 4.2 (3.5-5.0) g/dL Monoscreen Negative (Negative) Influenza Type A (PCR) NEGATIVE (Negative) Influenza Type B (PCR) NEGATIVE (Negative) RSV RNA Qual (PCR) NEGATIVE (Negative) SARS-CoV-2 RNA (RT-PCR) NEGATIVE (Negative) S. pyogenes GrpA ALVINO Negative (Negative) Radiology Impression Discussion of test interpretation with radiology: I have reviewed the radiologist's reading. External Record Review External record reviewed: Inpatient record, Office record, Outpatient record, Prior outpatient labs, Prior outpatient radiology, Primary care record and Outside ED record Discharge Plan Discharge Clinical Impression: Lymphadenopathy Patient Disposition: Home, Self-Care Instructions: Lymphadenopathy (ED) Additional Instructions: You were seen in the emergency department due to swollen lymph nodes. This is likely a virus, please drink plenty of fluids get plenty of rest. You tested negative for COVID, flu, RSV, strep and mono. Your blood work was reassuring. Follow-up with your primary care physician regarding this visit. If any new or worsening symptoms occur including but not limited to chest pain, shortness of breath, difficulty swallowing, please return for re-evaluation. Prescriptions: No Action esomeprazole magnesium [Nexium] 40 mg capsule,delayed release(DR/EC) 40 mg PO DAILY Qty: 30 5RF vjsrlthidy-jwxctngcitemm-jfew [Fioricet] 50-300-40 mg capsule 1 cap PO Q4-6H PRN (Reason: pain) Qty: 14 0RF gabapentin 100 mg capsule 100 mg PO BID Qty: 30 0RF ketorolac 10 mg tablet 10 mg PO TID PRN (Reason: pain) 5 Days Qty: 15 0RF lorazepam 0.5 mg tablet 0.5 mg PO BEDTIME PRN (Reason: anxiety) Qty: 10 0RF benzonatate 100 mg capsule 100 mg PO BID PRN (Reason: cough) Qty: 10 0RF meclizine 25 mg tablet 25 mg PO DAILY PRN (Reason: dizziness) Qty: 7 0RF cyclobenzaprine 10 mg tablet 10 mg PO TID PRN (Reason: muscle spasm) Qty: 20 0RF ketoconazole 2 % cream 1 appl topical BID Qty: 30 0RF hydroxyzine HCl 50 mg tablet 50 mg PO BID PRN (Reason: anxiety) sumatriptan succinate 50 mg tablet 50 mg PO Q2-4H PRN diltiazem HCl 120 mg capsule,extended release 24hr 120 mg PO DAILY meloxicam 15 mg tablet 15 mg PO DAILY Interventions: ED Discharge Assessment Last Done: 06/07/24 19:51 Discharge Date/Time: 06/07/24 19:53 Print Language: Icelandic
--- NOTE | 2024-06-07 17:45 | MHC.EDTECH ---
Patient blood drawn ,rsv/covid swab and streap swab collected all sent to lab .
[2024-06-07 18:00] LABS: IDNOW Serial# 58CA691E; Strep A Nucleic Acid Negative (Negative)
[2024-06-07 18:03] LABS: MANUAL DIFF FLAG NO
[2024-06-07 18:14] LABS: Basophils Absolute Auto 0.1 X10*3/uL (0.0-0.2); Basophils Percent Auto 0.5 % (0-2); Eosinophils Absolute Auto 0.1 X10*3/uL (0.0-0.4); Hematocrit 41.6 % (37.0-47.0); Hemoglobin 13.8 g/dl (12.0-16.0); Imm Gran Abs Auto 0.08 X10*3/uL (0.00-0.03); Imm Gran Pct Auto 0.8 % (0.0-0.4); Lymphocytes Absolute Auto 2.2 X10*3/uL (1.2-4.9); Lymphocytes Percent Auto 23.2 % (20-40); Mean Corpuscular HGB Conc 33.2 g/dl (31.0-35.0); Mean Corpuscular Hemoglobin 30.3 pg (27.0-33.0); Mean Corpuscular Volume 91.2 fL (80.0-98.0); Mean Platelet Volume 10.9 fL (9.4-12.3); Monocytes Absolute Auto 0.7 X10*3/uL (0.1-1.2); Monocytes Percent Auto 7.2 % (2-11); Neutrophils Absolute Auto 6.4 x10*3/uL (2.0-8.3); Neutrophils Percent Auto 67.3 % (45-73); Platelet Count 253 X10*3/uL (160-400); Red Blood Count 4.56 X10*6/uL (4.20-5.50); Red Cell Distribution Width 13.3 % (11.0-16.0); White Blood Count 9.5 X10*3/uL (4.8-10.8)
[2024-06-07 18:24] LABS: Alanine Aminotransferase 6 U/L (0-31); Albumin Level 4.2 g/dL (3.5-5.0); Alkaline Phosphatase 52 U/L (39-117); Anion Gap 15 (12-20); Aspartate Amino Transferase 12 U/L (5-31); Blood Urea Nitrogen 10 mg/dL (9-16); Calcium 9.6 mg/dL (8.4-10.2); Carbon Dioxide 22 mmol/L (22-29); Chloride 110 mmol/L (96-108); Creatinine Clr Calc Pharmacy 110.2; Estimated Glomerular Filt Rate > 60; Glucose Random 96 mg/dL (60-115); Potassium 4.9 mmol/L (3.3-5.1); Sodium 142 mmol/L (135-145); Total Protein 7.3 g/dL (6.5-8.0)
[2024-06-07 18:30] VITALS: BP 112/72; PULSE 87; RESP 16; TEMP 36.6; O2SAT 100
[2024-06-07 18:43] LABS: Influenza A PCR NEGATIVE (Negative); Influenza B PCR NEGATIVE (Negative); Resp Syncy Virus RNA Qual PCR NEGATIVE (Negative); SARS COV2 PCR INHOUSE NEGATIVE (Negative)
[2024-06-07 18:50] LABS: Monotest Negative (Negative)
[2024-06-07 19:51] VITALS: BP 112/72; PULSE 87; RESP 16; TEMP 36.6; O2SAT 100
== END 2024-06-07 19:53 | disposition home or self-care (01) ==
PROVIDERS: Physician Assistant Medical; Emergency Provider Internal Medicine
DX: R59.1 Generalized enlarged lymph nodes (principal); Z03.818 Encounter for observation for suspected exposure to other biological agents ruled out; F17.200 Nicotine dependence, unspecified, uncomplicated
CPT/HCPCS: 0241U; 36415; 80053; 85025; 86308; 87651; 99282; 99283

== ENCOUNTER 2024-07-12 07:51 | Day surgery (SDC) | payer OTHER, SELFPAY ==
--- NOTE | 2024-07-10 15:23 | HO.ANESPROP2 ---
Documented by User: Daylin Calvillo NP 07/10/24 15:25 HPI - Anesthesia Eval Consult details Narrative: 39yo F for Upper Endoscopy PMFSH Active Problems Active Problems: All Active Problems Nephrolithiasis (Acute) Left sided abdominal pain (Acute) Heart palpitations (Acute) Anxiety (Acute) Past Medical History Medical History Lyme disease Heart palpitations Anxiety Cholecystectomy planned delivery delivered Surgical History Surgical History S/P cholecystectomy Social History Social History Alcohol intake: never Patient Tobacco Use Status: Current everyday Tobacco user Tobacco use type: Smokeless Tobacco Use of substances other than those prescribed or required for medical reasons: Yes Substance Use Frequency: Occasionally Are you DNR?: No Advance Directives: No Advance Directives Information Provided: Yes Patient : No (UCG pending) Meds Allergies Allergy/AdvReac Type Severity Reaction Status Date / Time No Known Allergies Allergy Unknown NOT Verified 06/07/24 16:17 APPLICABLE Home Medications ?Medication ?Instructions ?Recorded ?Confirmed ?Last Taken ?Type hydroxyzine HCl 50 mg tablet 50 mg PO BID PRN anxiety 04/23/23 Unknown History diltiazem HCl 120 mg 120 mg PO DAILY 08/02/23 Unknown History capsule,extended release 24 hr meloxicam 15 mg tablet 15 mg PO DAILY 01/19/24 Unknown History sumatriptan succinate 50 mg tablet 50 mg PO Q2-4H PRN 03/01/24 Unknown History Exam Pertinent Lab Results Pertinent Lab Results: Laboratory Tests 06/07/24 17:40 WBC 9.5 Hgb 13.8 Hct 41.6 Plt Count 253 D Sodium 142 Potassium 4.9 Chloride 110 H Carbon Dioxide 22 BUN 10 Creatinine 0.70 Narrative Narrative: EKG 01/2024 Vent. Rate : 060 BPM Atrial Rate : 060 BPM P-R Int : 136 ms QRS Dur : 086 ms QT Int : 390 ms P-R-T Axes : 063 038 020 degrees QTc Int : 390 ms Normal sinus rhythm Normal ECG When compared with ECG of 19-MAY-2023 14:37, Premature ventricular complexes are no longer Present Assessment and Plan Assessment Anesthesia Assessment: Chart Reviewed Documented by User: Josue Robbins MD 07/12/24 09:02 PMFSH Past Medical History Medical History Lyme disease Heart palpitations Anxiety Cholecystectomy planned delivery delivered Family History Family history of problems with anesthesia: No Surgical History Surgical History S/P cholecystectomy History of Problems with Anesthesia: No Social History Social History Alcohol intake: never Patient Tobacco Use Status: Current everyday Tobacco user Tobacco use type: Smokeless Tobacco Use of substances other than those prescribed or required for medical reasons: Yes Substance Use Frequency: Occasionally Are you DNR?: No Advance Directives: No Advance Directives Information Provided: Yes Patient : No (UCG pending) Meds Allergies Allergy/AdvReac Type Severity Reaction Status Date / Time No Known Allergies Allergy Unknown NOT Verified 06/07/24 16:17 APPLICABLE Home Medications ?Medication ?Instructions ?Recorded ?Confirmed ?Last Taken ?Type hydroxyzine HCl 50 mg tablet 50 mg PO BID PRN anxiety 04/23/23 Unknown History diltiazem HCl 120 mg 120 mg PO DAILY 08/02/23 Unknown History capsule,extended release 24 hr meloxicam 15 mg tablet 15 mg PO DAILY 01/19/24 Unknown History sumatriptan succinate 50 mg tablet 50 mg PO Q2-4H PRN 03/01/24 Unknown History Exam Airway Mallampati Class: II Neck ROM: Full Assessment and Plan Assessment Anesthesia Assessment: Anesthesia Plan Discussed Final Anesthetic Review Family History of Problems with Anesthesia: No History of Problems with Anesthesia: No NPO: Yes ASA Class: II Final Preanesthetic Review: No Changes in Pt Med Stat, Meds/Allgs Chart Reviewed, Consent Obtained/Reviewed and Anes Risks/Benef Reviewed Patient Risk: Low Procedure Risk: Low Anesthetic Plan Anesthetic Plan: TIVA Disposition: Standard PACU
[2024-07-12 08:00] VITALS: BMI 26.6
[2024-07-12 09:01] VITALS: BP 118/79; PULSE 84; RESP 16; TEMP 36.3; O2SAT 100
--- NOTE | 2024-07-12 09:01 | MHC.SHP ---
Pre-Procedural Eval Section A - 24 Hr Update-Section A only Date of Service: 07/12/24 Section B - Complete if H&P > 30 days Chief Complaint: Dysphagia, unspecified Relevant Family History (Specify if Yes): No Relevant Social History: Tobacco Use (vaping) Present Medications: see Short Stay Collaborative assessment Medical History: Significant History (Lyme disease Heart palpitations Anxiety Cholecystectomy planned delivery delivered) History of Previous Operations: Relevant previous surgery/procedure and date(s) (S/P cholecystectomy) Allergies: Allergies Allergy/AdvReac Type Severity Reaction Status Date / Time No Known Allergies Allergy Unknown NOT Verified 06/07/24 16:17 APPLICABLE Review of Systems Sugical H&P ROS: Negative: Constitution, Cardiovascular, Respiratory, Neurological, Psychiatric, Hem-Onc, Allergic/Immunologic, Gastrointestinal, Genitourinary, Musculoskeletal, Integumentary, Endocrine and Eyes/Ears/Nose/Throat Exam Surgical H&P Exam: Normal: HEENT, Normal: Heart, Normal: Lungs, Normal: Extremities, Normal: Abdomen, Normal: Skin and Normal: Neurological Plan Diagnosis/Plan: Unchanged I have reviewed the history and physical and performed a pertinent physical examination on my patient. No changes have occurred unless specified. Time Spent With Patient Time: Total time managing care of this patient today ____ minutes.
[2024-07-12] MEDS: Lactated Ringers 1,000 ML 100 ML IVCONT (09:02)
--- NOTE | 2024-07-12 09:21 | W.PM.OPN ---
Operative Note Operative Note Date of Service: 07/12/24 Narrative: Procedure Description: EGD Indication: dysphagia Anesthesia: MAC FLEXIBLE TRANSORAL UPPER GASTROINTESTINAL ENDOSCOPY UPPER ENDOSCOPY Consent: Indications for the procedure and potential complications of bleeding, perforation, reaction to medications and missed diagnosis were discussed with the patient and informed consent was obtained. Instrument: Olympus GIF H 190 J mid size upper endoscope Monitoring: Vital signs and clinical assessment, continuous EKG monitoring, Pulse oximetry, Carbon Dioxide monitoring and blood pressure monitoring were done throughout the procedure. Procedure: The patient was placed in the left lateral decubitis position and pre-procedure medications were administered and a bite block was placed. The endoscope was inserted into the mouth and advanced under direct vision to the third part of duodenum. A careful inspection was made as the upper endoscope was withdrawn including a retroflexed examination of the proximal stomach; Findings and interventions are described below. Findings: Larynx:normal Esophagus: GE junction at 37 cm, diaphragm hiatus at 37 cm, bx taken from GEJ, distal and proximal esophagus, balloon dilation at LES and UES to 19 mm, no tears seen Stomach: streaky gastritis and atrophy . Biopsies were obtained. Grade 2 flap valve on retroflexed examination of the cardia. Duodenum: Normal bulb and descending duodenum, Intervention: Biopsies as noted above, balloon dilation Impression/Findings: gastritis PLAN: await bx, if h pylori pos treat GERD precautions
[2024-07-12 09:27] VITALS: BP 103/60; PULSE 76; RESP 17; TEMP 36.6; O2SAT 99
[2024-07-12 09:42] VITALS: BP 121/72; PULSE 68; RESP 18; O2SAT 99
[2024-07-12 09:57] VITALS: BP 115/74; PULSE 74; RESP 18; TEMP 36.6; O2SAT 100
== END 2024-07-12 10:35 | disposition home or self-care (01) ==
PROVIDERS: Visit Provider Internal Medicine Gastroenterology
PROC: 0DJ08ZZ Inspection of Upper Intestinal Tract, Via Natural or Artificial Opening Endoscopic (ICD-10-PCS; CPT 43235; principal; 2024-07-12 10:10)
DX: R13.12 Dysphagia, oropharyngeal phase (principal); K29.50 Unspecified chronic gastritis without bleeding; K44.9 Diaphragmatic hernia without obstruction or gangrene; K21.9 Gastro-esophageal reflux disease without esophagitis; R00.2 Palpitations; F41.9 Anxiety disorder, unspecified; A69.20 Lyme disease, unspecified; Z79.899 Other long term (current) drug therapy; Z90.49 Acquired absence of other specified parts of digestive tract; F17.200 Nicotine dependence, unspecified, uncomplicated
CPT/HCPCS: 43249; 43239; 88305; 88313; 88342; C1726; J2704

== ENCOUNTER → 2024-07-12 07:51 | Outpatient (BNV) | payer OTHER, SELFPAY | PROVIDERS: Visit Provider Internal Medicine Gastroenterology | DX: K29.70 Gastritis, unspecified, without bleeding (principal) | CPT/HCPCS: 43249 ==

== ENCOUNTER 2024-07-14 13:54 | Emergency (ER) | payer OTHER, SELFPAY ==
[2024-07-14 14:32] VITALS: BP 125/77; PULSE 100; RESP 16; TEMP 36.5; O2SAT 100; BMI 26.6
--- NOTE | 2024-07-14 14:35 | ED_ITS ---
HPI - Dizziness General Chief Complaint: Dizziness Stated Complaint: lightheadness ears blocked Time Seen by Provider: 07/14/24 19:07 Source: patient Mode of arrival: ambulatory Limitations: no limitations History of Present Illness ED Provider: ALLEY MONROY PA-C HPI Narrative: 39 year old female hx of anxiety and PVCs presents to the ED today for evaluation of lightheadedness and heart palpitations on standing x1 week. 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 Reports dizziness only lasted a minute or two. Admits to associated heart palpitations however does endorse history of PVCs and states this feels similar. Patient states that she was diagnosed with POTS in the past. Admits her ears have felt clogged today. No drainage from the ears or hearing changes. Denies difficulty ambulating or speaking. Denies fever, chills, sore throat, chest pain, shortness of breath, calf pain/ swelling. Denies recent travel or long car rides. Related Data Home Medications ?Medication ?Instructions ?Recorded ?Confirmed hydroxyzine HCl 50 mg tablet 50 mg PO BID PRN anxiety 04/23/23 diltiazem HCl 120 mg 120 mg PO DAILY 08/02/23 capsule,extended release 24 hr meloxicam 15 mg tablet 15 mg PO DAILY 01/19/24 sumatriptan succinate 50 mg tablet 50 mg PO Q2-4H PRN 03/01/24 Previous Rx's ?Medication ?Instructions ?Recorded gabapentin 100 mg capsule 100 mg PO BID #30 caps 04/19/23 ketorolac 10 mg tablet 10 mg PO TID PRN pain 5 days #15 08/26/23 tabs lorazepam 0.5 mg tablet 0.5 mg PO BEDTIME PRN anxiety #10 10/17/23 tabs benzonatate 100 mg capsule 100 mg PO BID PRN cough #10 caps 12/29/23 kjlpslqwzm-elzzwtuuoblih-soxagpva 1 cap PO Q4-6H PRN pain #14 caps 01/07/24 50 mg-300 mg-40 mg capsule (Fioricet) meclizine 25 mg tablet 25 mg PO DAILY PRN dizziness #7 01/26/24 tabs cyclobenzaprine 10 mg tablet 10 mg PO TID PRN muscle spasm #20 02/11/24 tabs esomeprazole magnesium 40 mg 40 mg PO DAILY #30 caps 03/30/24 capsule,delayed release (Nexium) ketoconazole 2 % topical cream 1 appl topical BID #30 grams 05/30/24 Allergies Allergy/AdvReac Type Severity Reaction Status Date / Time No Known Allergies Allergy Unknown NOT Verified 07/14/24 14:34 APPLICABLE Review of Systems 2 Review of Systems: Constitutional: No fever, chills, fatigue, night sweats, weight changes ENT/Mouth: No ear pain, hearing loss, nasal congestion, sinus pain, rhinorrhea, sore throat Eyes: No eye pain, swelling, redness, vision changes, discharge Cardio: No chest pain, palpitations, PRATT, orthopnea, peripheral edema, + palpitations Pulm: No SOB, cough, sputum, wheezing, dyspnea, hemoptysis GI: No nausea, vomiting, hematemesis, abdominal pain, diarrhea, constipation, hematochezia, melena : No irregular bleeding, dysuria, frequency, urgency, hesitancy, hematuria, flank pain, urinary flow changes, urinary incontinence or retention MSK: No back pain, neck pain, joint pain, myalgias Skin: No lesions, rashes Neuro: No weakness, numbness, paresthesias, LOC, +dizziness, headache Psych: No anxiety/panic, depression, SI/HI, AH/VH All other systems reviewed and are negative. [facility] Past Medical History Attestation statement: The following information was validated with the patient. Source: old records reviewed and nursing notes reviewed Medical History Lyme disease Heart palpitations Anxiety Cholecystectomy planned delivery delivered Surgical History S/P cholecystectomy Social History Social History Alcohol intake: never Patient Tobacco Use Status: Current everyday Tobacco user Tobacco use type: Smokeless Tobacco Advance Directives: No Advance Directives Information Provided: No Do you have a plan to hurt others: No Plan Physical Exam 2 Vital Signs: Vital Signs: Last Vital Signs Temp 97.7 F 07/14/24 14:32 Pulse 106 H 07/14/24 19:43 Resp 16 07/14/24 14:32 BP 111/78 07/14/24 19:43 Pulse Ox 100 07/14/24 14:32 O2 Del Method Room Air 07/14/24 14:32 BMI result Body Mass Index 26.6 Vital signs stable. General: Well appearing, in no acute distress. Skin: Warm, dry, intact. No rashes or lesions. Head: Normocephalic, atraumatic. EENT: Hearing is intact b/l. Conjunctiva clear. Sclera is anicteric. PERRLA. EOM intact. Moist mucous membranes.? Neck: Supple without LAD. FROM. Trachea midline.? Cardiac: Chest wall symmetric. RRR. No MRG. No JVD. Lungs: Normal respiratory effort without accessory muscle use. CTA bilaterally. No rales, rhonchi, or wheezes.? Abdomen: Soft, non-tender, non-distended. No rebound tenderness or guarding. Positive BS x4. Back: No midline spinous or paraspinal tenderness. No step off deformity. Ext: Upper and lower extremities atraumatic, without tenderness, deformity, swelling or erythema. Full ROM throughout. Capillary refill <2 seconds in all extremities. Pulses 2+ equal and bilateral. Neuro: AOx3. Normal speech. CN 2-12 grossly intact. Strength 5/5 intact throughout. No saddle anesthesia. Sensation intact to light touch. NV intact distally. Reflexes 2+ bilaterally. Ambulating with steady gait. Psych: Appropriate mood and affect. Responds appropriately to questions. Course Course Course Narrative: This is a Rapid Medical Examination (RME) performed by Henny Monroy PA-C in triage. Full HPI, ROS, assessment and treatment plan per primary provider in the Main ED. 39 yo female here for eval of light headedness and heart palpitations on standing x 5 days. assoc ear fullness. + well appearing. ambulating w/ stady gait. exam nonfocal. Plan: labs, ekg Reevaluation(s) Reevaluation #1: 1928 -- CBC without leukocytosis or left shift. No anemia. H&H stable. Chemistry without acute electrolyte abnormality requiring intervention. No MOMO. Normal liver function. Troponin undetectable. EKG showing normal sinus rhythm with a rate of 92 beats per minute, QT 320, QTC 395, no acute ischemic changes or ST elevations. I have extremely low suspicion for ACS. Urine with small amount of blood in urine RBCs, trace leukocytes with 6-10 urine WBCs. 2+ bacteria however there is 11 and 20 squamous epithelial cells. I have suspicion for contamination as patient is denying any urinary symptoms at present. Will await urine culture to treat for UTI. 2000 -- orthostatic vital signs are negative. Patient's blood pressure remained stable around 110s over 70s. Her heart rate was noted to increase from 70-106 when going from lying to standing. Question postural tachycardia. Educated on lifestyle modifications. Patient treated with meclizine while in ED. I do not feel IV fluids are necessary at this time as patient does not appear hypovolemic and blood pressures are stable. Advised patient to follow up with her primary care provider if symptoms continue as she may need to be placed on medication for this. Patient has remained stable throughout ED visit today. Discussed worrisome signs and symptoms and when to return to the ED. All questions answered at this time. Patient is agreeable with disposition and stable for discharge. Medications Administered Discontinued Medications Generic Name Dose Route Start Last Admin Trade Name Elvisq PRN Reason Stop Dose Admin Famotidine 20 mg 07/14/24 19:15 07/14/24 19:30 Famotidine 20 Mg Tablet PO 07/14/24 19:16 20 mg ONCE ONE Administration Meclizine HCl 25 mg 07/14/24 19:15 07/14/24 19:30 Meclizine Hcl 25 Mg Tablet PO 07/14/24 19:16 25 mg ONCE ONE Administration Medical Decision Making Medical Decision Making MDM Narrative: This patient presents with dizziness, most consistent with a peripheral cause, likely orthostatic hypotension.? Differential diagnoses includes: orthostatic hypotension, BPPV vs labrynthitis. No red flag features for central vertigo to include gradual onset, vertical/bidirectional or nonfatigable nystagmus, focal neurologic findings on exam (including inability to ambulate). Presentation not consistent with an acute [employer]IAN infection, vertebral basilar artery insufficiency, cerebellar hemorrhage or infarction,?intracranial mass or bleed, temporal lobe epilepsy,?MS, trauma, complex migraine headache. Other acute, emergent causes of vertigo are unlikely given at this time. No indication for head imaging at this time. Plan: basic labs, EKG, trop, orthostatic vital signs, meclizine, supportive care, serial reassessment Differential Diagnosis Differential Diagnoses: The differential diagnosis associated with the presentation includes as above. Admission/Observation Not indicated. Lab Data MDM Lab Attestation statement: I reviewed the patient's lab results. as above. 07/14/24 14:54 07/14/24 14:54 Labs: Lab Results 07/14/24 Range/Units 14:54 WBC 7.7 (4.8-10.8) X10*3/uL RBC 4.70 (4.20-5.50) X10*6/uL Hgb 14.2 (12.0-16.0) g/dl Hct 43.2 (37.0-47.0) % MCV 91.9 (80.0-98.0) fL MCH 30.2 (27.0-33.0) pg MCHC 32.9 (31.0-35.0) g/dl RDW 12.8 (11.0-16.0) % Plt Count 285 (160-400) X10*3/uL MPV 10.6 (9.4-12.3) fL Immature Gran % (Auto) 0.3 (0.0-0.4) % Neut % (Auto) 61.4 (45-73) % Lymph % (Auto) 27.1 (20-40) % [place] % (Auto) 9.4 (2-11) % Eos % (Auto) 1.3 (0-4) % Baso % (Auto) 0.5 (0-2) % Lymph # (Auto) 2.1 (1.2-4.9) X10*3/uL [place] # (Auto) 0.7 (0.1-1.2) X10*3/uL Eos # (Auto) 0.1 (0.0-0.4) X10*3/uL Baso # (Auto) 0.0 (0.0-0.2) X10*3/uL Abs Immat Gran (auto) 0.02 (0.00-0.03) X10*3/uL Absolute Neuts (auto) 4.7 (2.0-8.3) x10*3/uL Absolute Nucleated RBC 0.000 (0.0-0.012) X10*3/uL Nucleated RBC % (auto) 0.0 (0.0-0.2) /100WBC Sodium 143 (135-145) mmol/L Potassium 4.4 (3.3-5.1) mmol/L Chloride 107 (96-108) mmol/L Carbon Dioxide 25 (22-29) mmol/L Anion Gap 15 (12-20) BUN 10 (9-16) mg/dL Creatinine 0.81 (0.5-1.4) mg/dL Estim Creat Clear Calc 94.9 Estimated GFR > 60 Random Glucose 94 (60-115) mg/dL Calcium 9.9 (8.4-10.2) mg/dL Magnesium 1.9 (1.6-2.6) mg/dL Total Bilirubin 0.9 (0.0-1.0) mg/dL AST 14 (5-31) U/L ALT 8 (0-31) U/L Alkaline Phosphatase 61 (39-117) U/L Troponin I High Sens < 2.7 (<3.5-17.0) ng/L Total Protein 7.5 (6.5-8.0) g/dL Albumin 4.3 (3.5-5.0) g/dL Urine Color Yellow Urine Appearance Clear Urine pH 6.5 (5.0-9.0) Ur Specific [place] 1.025 (1.005-1.025) Urine Protein Negative (Neg-Trace) mg/dL Urine Glucose (UA) Negative (Negative) mg/dL Urine Ketones 15 (Negative) mg/dL Urine Blood Small (1+) H (Negative) Urine Nitrite Negative (Negative) Ur Leukocyte Esterase Trace H (Negative) Urine RBC 6-10 H (0-2) /HPF Urine WBC 6-10 H (0-5) /HPF Ur Squamous Epith Cells 11-20 (0-2) /HPF Urine Bacteria 2+ (None Seen) Hyaline Casts 0-2 (0-2) /LPF Urine Test NEGATIVE (NEGATIVE) Independent Interpretation I performed an independent interpretation of an: EKG Interpretation: EKG showing normal sinus rhythm with a rate of 92 beats per minute, QT 320, QTC 395, no acute ischemic changes or ST elevations. External Record Review External record reviewed: Inpatient record, Office record, Outpatient record, Prior outpatient labs, Prior outpatient radiology, Primary care record and Outside ED record Prescription Management I considered prescription management with: Other (meclizine) Social Determinants Patient?s care significantly limited by Social Determinants of Health including: Other Social Determinant of Health Critical Care Time Critical Care Time Critical Care Time: No Discharge Plan Discharge Clinical Impression: Light headedness Patient Disposition: Home, Self-Care Instructions: Lightheadedness (ED) Additional Instructions: Your blood work today is reassuring. Your EKG is normal. Your orthostatic vital signs showed increase in heart rate when going from seated to standing. This is consistent with postural tachycardia. Initial treatment for this is lifestyle management: - try to drink 3 L of water daily - target daily salt intake 8-12 g - try to incorporate 30 minutes to an hour of aerobic exercise daily - make position changes slowly Please follow up with your primary care provider regarding further management. If you do not have a PCP, a referral has been provided to you. You may call them to establish care. They will not call you. Return with new or worsening symptoms. In the case of an emergency call 911. Prescriptions: No Action esomeprazole magnesium [Nexium] 40 mg capsule,delayed release(DR/EC) 40 mg PO DAILY Qty: 30 5RF wpfcynyrnm-bvozbqfksapdu-jign [Fioricet] 50-300-40 mg capsule 1 cap PO Q4-6H PRN (Reason: pain) Qty: 14 0RF gabapentin 100 mg capsule 100 mg PO BID Qty: 30 0RF ketorolac 10 mg tablet 10 mg PO TID PRN (Reason: pain) 5 Days Qty: 15 0RF lorazepam 0.5 mg tablet 0.5 mg PO BEDTIME PRN (Reason: anxiety) Qty: 10 0RF benzonatate 100 mg capsule 100 mg PO BID PRN (Reason: cough) Qty: 10 0RF meclizine 25 mg tablet 25 mg PO DAILY PRN (Reason: dizziness) Qty: 7 0RF cyclobenzaprine 10 mg tablet 10 mg PO TID PRN (Reason: muscle spasm) Qty: 20 0RF ketoconazole 2 % cream 1 appl topical BID Qty: 30 0RF hydroxyzine HCl 50 mg tablet 50 mg PO BID PRN (Reason: anxiety) sumatriptan succinate 50 mg tablet 50 mg PO Q2-4H PRN diltiazem HCl 120 mg capsule,extended release 24hr 120 mg PO DAILY meloxicam 15 mg tablet 15 mg PO DAILY Referrals: Simi Noland NP [Primary Care Provider] - [facility] – [place] Primary Skye Hutson [Provider Group] [facility] [Provider Group] Stand Alone Forms: Work/School Release Print Language: Hebrew
--- NOTE | 2024-07-14 14:36 | ECG_ITS ---
Test Reason : lightheaded,paklpitations Blood Pressure : / mmHG Vent. Rate : 092 BPM Atrial Rate : 092 BPM P-R Int : 122 ms QRS Dur : 084 ms QT Int : 320 ms P-R-T Axes : 077 053 040 degrees QTc Int : 395 ms Normal sinus rhythm Possible Left atrial enlargement Nonspecific T wave abnormality Abnormal ECG When compared with ECG of 26-JAN-2024 11:08, Vent. rate has increased BY 32 BPM Nonspecific T wave abnormality now evident in Lateral leads Referred By: Tiffani oMnroy Electronically Signed By:TRICIA ALAS
[2024-07-14 15:01] LABS: MANUAL DIFF FLAG NO
[2024-07-14 15:05] LABS: Basophils Percent Auto 0.5 % (0-2); Eosinophils Absolute Auto 0.1 X10*3/uL (0.0-0.4); Eosinophils Percent Auto 1.3 % (0-4); Hematocrit 43.2 % (37.0-47.0); Hemoglobin 14.2 g/dl (12.0-16.0); Imm Gran Abs Auto 0.02 X10*3/uL (0.00-0.03); Imm Gran Pct Auto 0.3 % (0.0-0.4); Lymphocytes Absolute Auto 2.1 X10*3/uL (1.2-4.9); Lymphocytes Percent Auto 27.1 % (20-40); Mean Corpuscular HGB Conc 32.9 g/dl (31.0-35.0); Mean Corpuscular Hemoglobin 30.2 pg (27.0-33.0); Mean Corpuscular Volume 91.9 fL (80.0-98.0); Mean Platelet Volume 10.6 fL (9.4-12.3); Monocytes Absolute Auto 0.7 X10*3/uL (0.1-1.2); Monocytes Percent Auto 9.4 % (2-11); Neutrophils Absolute Auto 4.7 x10*3/uL (2.0-8.3); Neutrophils Percent Auto 61.4 % (45-73); Platelet Count 285 X10*3/uL (160-400); Red Cell Distribution Width 12.8 % (11.0-16.0); White Blood Count 7.7 X10*3/uL (4.8-10.8)
[2024-07-14 15:07] LABS: Appearance Urine Clear; Color Urine Yellow; Glucose Urine UA Negative (Negative); Leukocyte Esterase Urine Trace (Negative); Nitrite Urine Negative (Negative); PH 6.5 (5.0-9.0); Specific Gravity - Urine 1.025 (1.005-1.025); UMIC TRIGGER UACC YES; Urine Blood Small (1+) (Negative); Urine Ketones 15 mg/dL (Negative); Urine Protein Negative (Neg-Trace)
[2024-07-14 15:08] LABS: UPreg QC Valid YES; Urine Pregnancy NEGATIVE (NEGATIVE)
[2024-07-14 15:09] LABS: Bacteria Urine 2+ (None Seen); Hyaline Casts Urine 0-2 /LPF (0-2); UACC Culture Trigger YES
[2024-07-14 15:19] LABS: Alanine Aminotransferase 8 U/L (0-31); Albumin Level 4.3 g/dL (3.5-5.0); Alkaline Phosphatase 61 U/L (39-117); Anion Gap 15 (12-20); Aspartate Amino Transferase 14 U/L (5-31); Bilirubin Total 0.9 mg/dL (0.0-1.0); Blood Urea Nitrogen 10 mg/dL (9-16); Calcium 9.9 mg/dL (8.4-10.2); Carbon Dioxide 25 mmol/L (22-29); Chloride 107 mmol/L (96-108); Creatinine Clr Calc Pharmacy 94.9; Estimated Glomerular Filt Rate > 60; Glucose Random 94 mg/dL (60-115); Magnesium 1.9 mg/dL (1.6-2.6); Potassium 4.4 mmol/L (3.3-5.1); Sodium 143 mmol/L (135-145); Total Protein 7.5 g/dL (6.5-8.0)
[2024-07-14 15:27] LABS: Troponin-I High Sensitivity < 2.7 ng/L (<3.5-17.0)
[2024-07-14] MEDS: Famotidine 20 MG TABLET PO (19:30)
[2024-07-14] MEDS: Meclizine HCl 25 MG TABLET PO (19:30)
[2024-07-14 19:40] VITALS: BP 114/73; PULSE 70
[2024-07-14 19:42] VITALS: BP 114/72; PULSE 95
[2024-07-14 19:43] VITALS: BP 111/78; PULSE 106
[2024-07-14 20:03] VITALS: BP 118/71; PULSE 75; RESP 18; TEMP 36.7; O2SAT 100
[2024-07-14 20:10] VITALS: BP 118/71; PULSE 75; RESP 18; TEMP 36.7; O2SAT 100
== END 2024-07-14 20:11 | disposition home or self-care (01) ==
PROVIDERS: Physician Assistant Medical; Emergency Provider Emergency Medicine Emergency Medical Services; PCP Nurse Practitioner Family
DX: R42 Dizziness and giddiness (principal)
CPT/HCPCS: 36415; 80053; 81001; 81025; 83735; 84484; 85025; 87086; 93005; 99284

== ENCOUNTER 2024-07-16 09:09 | Emergency (ER) | payer OTHER, SELFPAY ==
--- NOTE | ~2024-07-16 | XR_ITS ---
EXAMINATION: XR CHEST CLINICAL INFORMATION: tachycardiac, lightheaded COMPARISON: Chest radiograph 05/11/2023 TECHNIQUE: 2 views of the chest FINDINGS: Lines and tubes: Right upper quadrant cholecystectomy clips. Clear lungs. No pleural effusion. No pneumothorax. Normal cardiomediastinal silhouette. XR/XR chest 2V IMPRESSION: * Clear lungs. Electronically signed by: Whit Anaya MD 07/16/2024 11:52 AM EDT
--- NOTE | 2024-07-16 09:11 | ECG_ITS ---
Test Reason : ELEVATED HR Blood Pressure : / mmHG Vent. Rate : 081 BPM Atrial Rate : 081 BPM P-R Int : 132 ms QRS Dur : 086 ms QT Int : 346 ms P-R-T Axes : 074 055 013 degrees QTc Int : 401 ms Normal sinus rhythm Normal ECG When compared with ECG of 14-JUL-2024 14:43, Nonspecific T wave abnormality is no longer Present Referred By: Generic ED Physician Electronically Signed By:TRICIA ALAS
[2024-07-16 09:17] VITALS: BP 132/63; PULSE 88; RESP 16; TEMP 36.7; O2SAT 100; BMI 26.6
--- NOTE | 2024-07-16 09:41 | ED_ITS ---
HPI - General Adult General Chief complaint: General Medical Stated complaint: High heart rate Time Seen by Provider: 07/16/24 09:41 Source: patient, RN notes reviewed and old records reviewed Mode of arrival: ambulatory Limitations: no limitations History of Present Illness ED Provider: ALLEY ACOSTA PA-C HPI narrative: 39 year old female with pmhx significant for anxiety and PVCs presents to the ED today for evaluation of heart palpitations on standing x1 week. Patient was seen in our ED for same on 07/14/24 (2 days ago) with unremarkable work up. She was noted to be tachycardic on standing and was discharged home with PCP follow up for suspected postural tachycardia. She reports another episode of heart palpitations on standing up yesterday. Reports looking at her home pulse ox which showed her HR was 125. Admits her HR went back to normal when she sat down. States she has had to call out of work over the past 2 days due to these symptoms. She was previously followed by Freedom Of Information Officer at [facility] for her PVCs diagnosed via holter monitor. She has not followed up with them in some time. Denies headache, dizziness, lightheadedness, chest pain, shortness of breath, N/V. Related Data Home Medications ?Medication ?Instructions ?Recorded ?Confirmed hydroxyzine HCl 50 mg tablet 50 mg PO BID PRN anxiety 04/23/23 diltiazem HCl 120 mg 120 mg PO DAILY 08/02/23 capsule,extended release 24 hr meloxicam 15 mg tablet 15 mg PO DAILY 01/19/24 sumatriptan succinate 50 mg tablet 50 mg PO Q2-4H PRN 03/01/24 Previous Rx's ?Medication ?Instructions ?Recorded gabapentin 100 mg capsule 100 mg PO BID #30 caps 04/19/23 ketorolac 10 mg tablet 10 mg PO TID PRN pain 5 days #15 08/26/23 tabs lorazepam 0.5 mg tablet 0.5 mg PO BEDTIME PRN anxiety #10 10/17/23 tabs benzonatate 100 mg capsule 100 mg PO BID PRN cough #10 caps 12/29/23 ijyczuxhmf-jwqpvjrgklxik-agdhqkdp 1 cap PO Q4-6H PRN pain #14 caps 01/07/24 50 mg-300 mg-40 mg capsule (Fioricet) meclizine 25 mg tablet 25 mg PO DAILY PRN dizziness #7 01/26/24 tabs cyclobenzaprine 10 mg tablet 10 mg PO TID PRN muscle spasm #20 02/11/24 tabs esomeprazole magnesium 40 mg 40 mg PO DAILY #30 caps 03/30/24 capsule,delayed release (Nexium) ketoconazole 2 % topical cream 1 appl topical BID #30 grams 05/30/24 Allergies Allergy/AdvReac Type Severity Reaction Status Date / Time No Known Allergies Allergy Unknown NOT Verified 07/16/24 09:18 APPLICABLE Review of Systems 2 Review of Systems: Constitutional: No fever, chills, fatigue, night sweats, weight changes ENT/Mouth: No ear pain, hearing loss, nasal congestion, sinus pain, rhinorrhea, sore throat Eyes: No eye pain, swelling, redness, vision changes, discharge Cardio: No chest pain, PRATT, orthopnea, peripheral edema, +palpitations Pulm: No SOB, cough, sputum, wheezing, dyspnea, hemoptysis GI: No nausea, vomiting, hematemesis, abdominal pain, diarrhea, constipation, hematochezia, melena : No irregular bleeding, dysuria, frequency, urgency, hesitancy, hematuria, flank pain, urinary flow changes, urinary incontinence or retention MSK: No back pain, neck pain, joint pain, myalgias Skin: No lesions, rashes Neuro: No weakness, numbness, paresthesias, LOC, dizziness, headache Psych: No anxiety/panic, depression, SI/HI, AH/VH All other systems reviewed and are negative. COUNT INCLUDES THE [facility] Past Medical History Attestation statement: The following information was validated with the patient. Source: old records reviewed and nursing notes reviewed Medical History Lyme disease Heart palpitations Anxiety Cholecystectomy planned delivery delivered Surgical History S/P cholecystectomy Social History Social History Alcohol intake: never Patient Tobacco Use Status: Current everyday Tobacco user Tobacco use type: Smokeless Tobacco Advance Directives: No Advance Directives Information Provided: Yes Do you have a plan to hurt others: No Plan Physical Exam ED Vital Signs: Vital Signs - 24 hr 07/16/24 09:17 07/16/24 12:12 Temperature 98.1 F 98.1 F Pulse Rate 88 88 Respiratory Rate 16 16 Blood Pressure 132/63 132/63 Pulse Oximetry 100 100 Oxygen Delivery Method Room Air Room Air BMI result Body Mass Index 26.6 Course Course Course Narrative: 1100 -- CBC without leukocytosis or left shift. No anemia. H&H stable. Dimer undetectable. PE unlikely. Chemistry without acute electrolyte abnormality requiring intervention. Troponin undetectable. EKG showing normal sinus rhythm without acute ischemic changes or ST elevations. ACS unlikely. Beta HCG undetectable. COVID, flu, RSV negative. CXR pending. 1206 -- chest x-ray unremarkable. Patient's symptoms are consistent with her known postural tachycardia. > I discussed all workup results with patient. I had a long discussion with patient regarding follow up with immunochemist as she may require Holter monitor to better characterize her symptoms. If she is unable to get in with her immunochemist's at [facility] I have provided her referral to [facility] [place] [place] [facility]. She states that she will call them to establish care. Will provide her with work note. Patient has remained stable throughout ED visit today. Discussed worrisome signs and symptoms and when to return to the ED. All questions answered at this time. Patient is agreeable with disposition and stable for discharge. Medical Decision Making Medical Decision Making [facility] Narrative: 39 year old female with pmhx significant for anxiety and PVCs presents to the ED today for evaluation of heart palpitations on standing x1 week. History without high risk features (not substernal, no exertional component, not relieved with rest).? Minimal CAD risk factors (including age), recent negative holter monitor. Exam without evidence of volume overload. EKG without signs of active ischemia. HEART score: 0.? Given the timing of pain to ED presentation, plan to send single troponin to evaluate for NSTEMI. Unlikely acute PE however given intermittent tachycardia, will obtain ddimer to r/o. Presentation not consistent with pneumothorax, thoracic aortic dissection, cardiac effusion or tamponade. Plan: labs, troponin, EKG, CXR, reassessment Differential Diagnosis Differential Diagnoses: The differential diagnosis associated with the presentation includes as above. Admission/Observation Not indicated. Lab Data [facility] Lab Attestation statement: I reviewed the patient's lab results. as above. 07/16/24 10:05 07/16/24 10:05 Labs: Lab Results 07/16/24 Range/Units 10:05 WBC 6.0 (4.8-10.8) X10*3/uL RBC 4.64 (4.20-5.50) X10*6/uL Hgb 14.2 (12.0-16.0) g/dl Hct 42.8 (37.0-47.0) % MCV 92.2 (80.0-98.0) fL MCH 30.6 (27.0-33.0) pg MCHC 33.2 (31.0-35.0) g/dl RDW 12.8 (11.0-16.0) % Plt Count 256 (160-400) X10*3/uL MPV 10.9 (9.4-12.3) fL Immature Gran % (Auto) 0.3 (0.0-0.4) % Neut % (Auto) 61.3 (45-73) % Lymph % (Auto) 28.5 (20-40) % [place] % (Auto) 7.7 (2-11) % Eos % (Auto) 1.5 (0-4) % Baso % (Auto) 0.7 (0-2) % Lymph # (Auto) 1.7 (1.2-4.9) X10*3/uL [place] # (Auto) 0.5 (0.1-1.2) X10*3/uL Eos # (Auto) 0.1 (0.0-0.4) X10*3/uL Baso # (Auto) 0.0 (0.0-0.2) X10*3/uL Abs Immat Gran (auto) 0.02 (0.00-0.03) X10*3/uL Absolute Neuts (auto) 3.7 (2.0-8.3) x10*3/uL Absolute Nucleated RBC 0.000 (0.0-0.012) X10*3/uL Nucleated RBC % (auto) 0.0 (0.0-0.2) /100WBC D-Dimer High Sensitivty < 150 NG/ML Sodium 141 (135-145) mmol/L Potassium 4.5 (3.3-5.1) mmol/L Chloride 105 (96-108) mmol/L Carbon Dioxide 27 (22-29) mmol/L Anion Gap 14 (12-20) BUN 13 (9-16) mg/dL Creatinine 0.82 (0.5-1.4) mg/dL Estim Creat Clear Calc 93.8 Estimated GFR > 60 Random Glucose 100 (60-115) mg/dL Calcium 9.7 (8.4-10.2) mg/dL Magnesium 1.7 (1.6-2.6) mg/dL Total Bilirubin 1.0 (0.0-1.0) mg/dL AST 14 (5-31) U/L ALT 9 (0-31) U/L Alkaline Phosphatase 55 (39-117) U/L Troponin I High Sens < 2.7 (<3.5-17.0) ng/L Total Protein 7.4 (6.5-8.0) g/dL Albumin 4.3 (3.5-5.0) g/dL Beta HCG, Quant < 2 mIU/mL Influenza Type A (PCR) NEGATIVE (Negative) Influenza Type B (PCR) NEGATIVE (Negative) RSV RNA Qual (PCR) NEGATIVE (Negative) SARS-CoV-2 RNA (RT-PCR) NEGATIVE (Negative) Independent Interpretation I performed an independent interpretation of an: EKG and Plain X-Ray Interpretation: EKG showing normal sinus rhythm with a rate of 81 beats per minute, QT 346, QTC 401, no acute ischemic changes or ST elevations. Chest x-ray without phonation interpretation. Radiology Impression Discussion of test interpretation with radiology: I have reviewed the radiologist's reading. Radiologist Impression: EXAMINATION: XR CHEST CLINICAL INFORMATION: tachycardiac, lightheaded COMPARISON: Chest radiograph 05/11/2023 TECHNIQUE: 2 views of the chest FINDINGS: Lines and tubes: Right upper quadrant cholecystectomy clips. Clear lungs. No pleural effusion. No pneumothorax. Normal cardiomediastinal silhouette. XR/XR chest 2V IMPRESSION: * Clear lungs. Electronically signed by: Whit Anaya MD 07/16/2024 11:52 AM EDT External Record Review External record reviewed: Inpatient record Social Determinants Patient?s care significantly limited by Social Determinants of Health including: Other Social Determinant of Health Critical Care Time Critical Care Time Critical Care Time: No Discharge Plan Discharge Clinical Impression: Heart palpitations Patient Disposition: Home, Self-Care Instructions: Heart Palpitations (ED) Additional Instructions: Your blood work today is reassuring. Your EKG is normal. Your chest x-ray is normal. Please follow up with your immunochemist. Call them tomorrow to schedule an appointment. You have also been provided with a referral to [facility] [place] [place] [facility]. You may call them to establish care. They will not call you. Return with new or worsening symptoms. In the case of an emergency call 911. Prescriptions: No Action esomeprazole magnesium [Nexium] 40 mg capsule,delayed release(DR/EC) 40 mg PO DAILY Qty: 30 5RF xcqvhaqqzp-vjlawuajrnddk-monv [Fioricet] 50-300-40 mg capsule 1 cap PO Q4-6H PRN (Reason: pain) Qty: 14 0RF gabapentin 100 mg capsule 100 mg PO BID Qty: 30 0RF ketorolac 10 mg tablet 10 mg PO TID PRN (Reason: pain) 5 Days Qty: 15 0RF lorazepam 0.5 mg tablet 0.5 mg PO BEDTIME PRN (Reason: anxiety) Qty: 10 0RF benzonatate 100 mg capsule 100 mg PO BID PRN (Reason: cough) Qty: 10 0RF meclizine 25 mg tablet 25 mg PO DAILY PRN (Reason: dizziness) Qty: 7 0RF cyclobenzaprine 10 mg tablet 10 mg PO TID PRN (Reason: muscle spasm) Qty: 20 0RF ketoconazole 2 % cream 1 appl topical BID Qty: 30 0RF hydroxyzine HCl 50 mg tablet 50 mg PO BID PRN (Reason: anxiety) sumatriptan succinate 50 mg tablet 50 mg PO Q2-4H PRN diltiazem HCl 120 mg capsule,extended release 24hr 120 mg PO DAILY meloxicam 15 mg tablet 15 mg PO DAILY Referrals: [facility] [place] [place] [facility] [Provider Group] Stand Alone Forms: Work/School Release Interventions: ED Discharge Assessment Last Done: 07/16/24 12:12 Discharge Date/Time: 07/16/24 12:12 Print Language: Algerian
[2024-07-16 10:10] LABS: MANUAL DIFF FLAG NO
[2024-07-16 10:14] LABS: Basophils Percent Auto 0.7 % (0-2); Eosinophils Absolute Auto 0.1 X10*3/uL (0.0-0.4); Eosinophils Percent Auto 1.5 % (0-4); Hematocrit 42.8 % (37.0-47.0); Hemoglobin 14.2 g/dl (12.0-16.0); Imm Gran Abs Auto 0.02 X10*3/uL (0.00-0.03); Imm Gran Pct Auto 0.3 % (0.0-0.4); Lymphocytes Absolute Auto 1.7 X10*3/uL (1.2-4.9); Lymphocytes Percent Auto 28.5 % (20-40); Mean Corpuscular HGB Conc 33.2 g/dl (31.0-35.0); Mean Corpuscular Hemoglobin 30.6 pg (27.0-33.0); Mean Corpuscular Volume 92.2 fL (80.0-98.0); Mean Platelet Volume 10.9 fL (9.4-12.3); Monocytes Absolute Auto 0.5 X10*3/uL (0.1-1.2); Monocytes Percent Auto 7.7 % (2-11); Neutrophils Absolute Auto 3.7 x10*3/uL (2.0-8.3); Neutrophils Percent Auto 61.3 % (45-73); Platelet Count 256 X10*3/uL (160-400); Red Blood Count 4.64 X10*6/uL (4.20-5.50); Red Cell Distribution Width 12.8 % (11.0-16.0)
[2024-07-16 10:35] LABS: D Dimer High Sensitivity < 150 NG/ML
[2024-07-16 10:50] LABS: Alanine Aminotransferase 9 U/L (0-31); Albumin Level 4.3 g/dL (3.5-5.0); Alkaline Phosphatase 55 U/L (39-117); Anion Gap 14 (12-20); Aspartate Amino Transferase 14 U/L (5-31); Blood Urea Nitrogen 13 mg/dL (9-16); Calcium 9.7 mg/dL (8.4-10.2); Carbon Dioxide 27 mmol/L (22-29); Chloride 105 mmol/L (96-108); Creatinine Clr Calc Pharmacy 93.8; Estimated Glomerular Filt Rate > 60; Glucose Random 100 mg/dL (60-115); Magnesium 1.7 mg/dL (1.6-2.6); Potassium 4.5 mmol/L (3.3-5.1); Sodium 141 mmol/L (135-145); Total Protein 7.4 g/dL (6.5-8.0)
[2024-07-16 10:52] LABS: Influenza A PCR NEGATIVE (Negative); Influenza B PCR NEGATIVE (Negative); Resp Syncy Virus RNA Qual PCR NEGATIVE (Negative); SARS COV2 PCR INHOUSE NEGATIVE (Negative)
[2024-07-16 10:56] LABS: Troponin-I High Sensitivity < 2.7 ng/L (<3.5-17.0)
[2024-07-16 10:57] LABS: HCG Quantitative < 2 mIU/mL
[2024-07-16 12:12] VITALS: BP 132/63; PULSE 88; RESP 16; TEMP 36.7; O2SAT 100
== END 2024-07-16 12:12 | disposition home or self-care (01) ==
PROVIDERS: Physician Assistant Medical; Emergency Provider Emergency Medicine; PCP Nurse Practitioner Family
DX: R00.2 Palpitations (principal); R00.0 Tachycardia, unspecified; Z03.818 Encounter for observation for suspected exposure to other biological agents ruled out; Z79.899 Other long term (current) drug therapy
CPT/HCPCS: 0241U; 71046; 80053; 83735; 84484; 84702; 85025; 85379; 93005; 99283

== ENCOUNTER 2024-07-18 19:30 | Emergency (ER) | payer OTHER, SELFPAY ==
--- NOTE | 2024-07-18 19:39 | ED.GENADULT ---
HPI - General Adult General Chief complaint: Extremity Problem Stated complaint: left side feel numb Time Seen by Provider: 07/18/24 22:27 Source: patient Mode of arrival: ambulatory Limitations: no limitations History of Present Illness ED Provider: RAJWINDER HPI narrative: 39 yo female with PMH of palpitations, anxiety, lyme disease, possible POTs still pending work up has appointment with PCP tomorrow here with c/o 1 week of worsening symptoms, palpitations, and not feeling well worsening anxiety due to her symptoms. Today she bent over and her symptoms worsened and she felt tingly on the left side of face, L arm/legs that has improved. No headaches, weakness, vomiting. She is not drinking enough water and did recently go on vacation where she drank a lot of alcohol and overall is not rested. She has had to call out of work due to her symptoms. She spoke to a friend who notes she should get checked out. She has not had any head or neck injury. MD complaint: RAJWINDER Onset (ago): week(s) (1) Location: face, left, upper extremity and lower extremity Radiation: non-radiation Severity: mild Quality: other (tingling) Pain Consistency: now resolved Relieving factors: none Exacerbating factors: other (bending forward, moving, standing up) Associated symptoms: other (anxiety, dizziness, palpitations) Treatments prior to arrival: none Related Data Home Medications ?Medication ?Instructions ?Recorded ?Confirmed hydroxyzine HCl 50 mg tablet 50 mg PO BID PRN anxiety 04/23/23 diltiazem HCl 120 mg 120 mg PO DAILY 08/02/23 capsule,extended release 24 hr meloxicam 15 mg tablet 15 mg PO DAILY 01/19/24 sumatriptan succinate 50 mg tablet 50 mg PO Q2-4H PRN 03/01/24 Previous Rx's ?Medication ?Instructions ?Recorded gabapentin 100 mg capsule 100 mg PO BID #30 caps 04/19/23 ketorolac 10 mg tablet 10 mg PO TID PRN pain 5 days #15 08/26/23 tabs lorazepam 0.5 mg tablet 0.5 mg PO BEDTIME PRN anxiety #10 10/17/23 tabs benzonatate 100 mg capsule 100 mg PO BID PRN cough #10 caps 12/29/23 leotsmwvcy-ucjrpazdtakhu-ixtjdjpv 1 cap PO Q4-6H PRN pain #14 caps 01/07/24 50 mg-300 mg-40 mg capsule (Fioricet) meclizine 25 mg tablet 25 mg PO DAILY PRN dizziness #7 01/26/24 tabs cyclobenzaprine 10 mg tablet 10 mg PO TID PRN muscle spasm #20 02/11/24 tabs esomeprazole magnesium 40 mg 40 mg PO DAILY #30 caps 03/30/24 capsule,delayed release (Nexium) ketoconazole 2 % topical cream 1 appl topical BID #30 grams 05/30/24 Allergies Allergy/AdvReac Type Severity Reaction Status Date / Time No Known Allergies Allergy Unknown NOT Verified 07/18/24 19:46 APPLICABLE Review of Systems Review of Systems: Constitutional : No Fever, No Chills, No Fatigue ENT/Mouth : No sore throat, No Rhinorrhea Eyes: No Eye Pain, No Swelling, No Redness Cardiovascular : No Chest Pain, No SOB, No Dyspnea on Exertion, pos palpitations Respiratory : No Cough, No Sputum Gastrointestinal : No Nausea, No Vomiting, No Diarrhea, No abdominal Pain Genitourinary : No Dysuria, No Urinary Frequency, No Hematuria, Musculoskeletal : No joint pain, No Myalgias, No Joint Swelling Skin : No Skin Lesions, No rash Neuro : No Weakness, pos Numbness, No Dizziness, no Headache Psych : No Anxiety/Panic, No Depression All other systems reviewed and are negative [facility] Past Medical History Attestation statement: The following information was validated with the patient. Source: old records reviewed Medical History Lyme disease Heart palpitations Anxiety Cholecystectomy planned delivery delivered Surgical History S/P cholecystectomy Social History Social History Alcohol intake: never Patient Tobacco Use Status: Current everyday Tobacco user Tobacco use type: Smokeless Tobacco Advance Directives: No Advance Directives Information Provided: No Do you have a plan to hurt others: No Plan Physical Exam ED Vital Signs: Vital Signs - 24 hr 07/18/24 19:42 07/18/24 22:41 07/19/24 00:43 Temperature 97.6 F 98.1 F 98.0 F Pulse Rate 91 70 65 Respiratory Rate 18 15 16 Blood Pressure 123/82 118/71 116/68 Pulse Oximetry 99 100 98 Oxygen Delivery Method Room Air Room Air Room Air BMI result Body Mass Index 26.3 Appearance: Alert. Oriented X3. No acute distress. Eyes: Pupils equal, round and reactive to light. ENT: Pharynx mildly dry MM Neck: Normal inspection. Neck supple. CVS: Normal heart rate and rhythm. Pulses normal. Respiratory: No respiratory distress. Breath sounds normal. Abdomen: Soft and nontender. Skin: Skin warm and dry. Normal skin color. Normal skin turgor. Extremities: No lower extremity edema. No calf ttp Neuro: Oriented X 3. No motor deficit. No sensory deficit. no ataxia normal gait NIH Stroke Scale Internal: Initial- Upon Arrival Level of Consciousness: Alert Level of Consciousness Questions: Answers both questions correctly Level of Consciousness Commands: Performs both tasks correctly Best Gaze: Normal Visual: No visual loss Facial Palsy: Normal Motor Arm (Right): No drift Motor Arm (Left): No drift Motor Leg (Right): No drift Motor Leg (Left): No drift Limb Ataxia: Absent Sensory: Normal Best Language: No aphasia Dysarthia: Normal Extinction and Inattention: No abnormality Score: 0 Course Course Course Narrative: This is an RME done by LIZ Del Toro: Additional HPI, ROS, PE not included below will be deferred to primary provider. 39 year old female presenting with concerns of L sided leg and face numbness with associated nausea and palpiations. She recently was here on 07/14 and 07/16 for similar complaints but states the numbness experienced today is new. Denies any SI/HI or recent sick contacts. Plan - labs Appearance: Alert.? Oriented X3.? No acute cardiopulmonary distress distress.? Head: Normocephalic, atraumatic, no step-offs or deformities Neck: Normal inspection.? Neck supple.? CVS: Pulses normal.? Respiratory: No respiratory distress.? Abdomen: Soft and nontender.? Skin: ? Normal skin color. Extremities: 5/5 strength to bilateral upper and lower extremities Neuro: Oriented X 3.? No motor deficit.? No sensory deficit. NIHSS: 0 Medications Administered Discontinued Medications Generic Name Dose Route Start Last Admin Trade Name Freq PRN Reason Stop Dose Admin Lactated Ringer's 1,000 mls @ 999 mls/hr 07/18/24 22:47 07/19/24 00:43 Lr IV 07/18/24 23:47 Infused .Q1H1M ONE Infusion Lactated Ringer's 1,000 mls @ 999 mls/hr 07/18/24 22:48 07/19/24 00:43 Lr IV 07/18/24 23:48 Infused .Q1H1M ONE Infusion Medical Decision Making Medical Decision Making [facility] Narrative: 39 yo female with PMH of palpitations, anxiety, lyme disease, possible POTs still pending work up has appointment with PCP tomorrow here with c/o not feeling well x 1 week after getting EGD and then going on vacation drinking ETOH and not drinking enough fluids had has return of her dizziness, palpitations and then symptoms worse when she bends over. Has no formal dx of POTs relays this all started after viral illness months ago. Is pending full workup by PCP and mortgage loan reviewer. She admits to not enough PO intake. Today she bent forward c/o worsening symptoms and then L side felt tingly no weakness - she has not had any neck trauma, headaches, whiplash or chiropractor therapy - at this time she is NV intact, neuro intact doubt dissection, stroke, will obtain labs, lytes and IVF x 2L - recheck suspect dx of POTs, doubt stroke or dissection Differential Diagnosis Differential Diagnoses: The differential diagnosis associated with the presentation includes POTS, lyte abnormality, parasthesias Admission/Observation Consideration of admission/observation: Escalation of care including admission/observation considered feels better after fluids stable for DC Lab Data [facility] Lab Attestation statement: I reviewed the patient's lab results. 07/18/24 20:01 07/18/24 22:58 Labs: Lab Results 07/18/24 07/18/24 07/18/24 Range/Units 20:01 20:05 22:58 WBC 9.1 (4.8-10.8) X10*3/uL RBC 4.68 (4.20-5.50) X10*6/uL Hgb 14.3 (12.0-16.0) g/dl Hct 42.4 (37.0-47.0) % MCV 90.6 (80.0-98.0) fL MCH 30.6 (27.0-33.0) pg MCHC 33.7 (31.0-35.0) g/dl RDW 12.7 (11.0-16.0) % Plt Count 257 (160-400) X10*3/uL MPV 10.7 (9.4-12.3) fL Immature Gran % (Auto) 0.3 (0.0-0.4) % Neut % (Auto) 61.6 (45-73) % Lymph % (Auto) 28.7 (20-40) % [place] % (Auto) 7.7 (2-11) % Eos % (Auto) 1.0 (0-4) % Baso % (Auto) 0.7 (0-2) % Lymph # (Auto) 2.6 (1.2-4.9) X10*3/uL [place] # (Auto) 0.7 (0.1-1.2) X10*3/uL Eos # (Auto) 0.1 (0.0-0.4) X10*3/uL Baso # (Auto) 0.1 (0.0-0.2) X10*3/uL Abs Immat Gran (auto) 0.03 (0.00-0.03) X10*3/uL Absolute Neuts (auto) 5.6 (2.0-8.3) x10*3/uL Absolute Nucleated RBC 0.000 (0.0-0.012) X10*3/uL Nucleated RBC % (auto) 0.0 (0.0-0.2) /100WBC Sodium 140 (135-145) mmol/L Potassium 5.9 H D 3.9 D (3.3-5.1) mmol/L Chloride 107 (96-108) mmol/L Carbon Dioxide 22 (22-29) mmol/L Anion Gap 17 (12-20) BUN 11 (9-16) mg/dL Creatinine 0.83 (0.5-1.4) mg/dL Estim Creat Clear Calc 92.1 Estimated GFR > 60 Random Glucose 93 (60-115) mg/dL Calcium 10.3 H D (8.4-10.2) mg/dL Magnesium 1.8 (1.6-2.6) mg/dL Total Bilirubin 1.0 (0.0-1.0) mg/dL AST 15 (5-31) U/L ALT 9 (0-31) U/L Alkaline Phosphatase 53 (39-117) U/L Total Protein 7.4 (6.5-8.0) g/dL Albumin 4.3 (3.5-5.0) g/dL Urine Test NEGATIVE (NEGATIVE) External Record Review External record reviewed: Inpatient record Critical Care Time Critical Care Time Critical Care Time: Yes Total Critical Care Time: 35 Attestation: 2L of IVF bolus for dehydration, review of records I attest to this time spent taking care of the patient Discharge Plan Discharge Clinical Impression: Complaint of paresthesia, Dehydration Patient Disposition: Home, Self-Care Instructions: Dehydration (ED), Paresthesia (ED) Additional Instructions: follow up with your doctor as planned stay hydrated - should be eating more salt and drinking 64 ounces of water a day return for worsening symptom or concerns Prescriptions: No Action esomeprazole magnesium [Nexium] 40 mg capsule,delayed release(DR/EC) 40 mg PO DAILY Qty: 30 5RF omvzfgjrla-omagwjxdiaejr-isde [Fioricet] 50-300-40 mg capsule 1 cap PO Q4-6H PRN (Reason: pain) Qty: 14 0RF gabapentin 100 mg capsule 100 mg PO BID Qty: 30 0RF ketorolac 10 mg tablet 10 mg PO TID PRN (Reason: pain) 5 Days Qty: 15 0RF lorazepam 0.5 mg tablet 0.5 mg PO BEDTIME PRN (Reason: anxiety) Qty: 10 0RF benzonatate 100 mg capsule 100 mg PO BID PRN (Reason: cough) Qty: 10 0RF meclizine 25 mg tablet 25 mg PO DAILY PRN (Reason: dizziness) Qty: 7 0RF cyclobenzaprine 10 mg tablet 10 mg PO TID PRN (Reason: muscle spasm) Qty: 20 0RF ketoconazole 2 % cream 1 appl topical BID Qty: 30 0RF hydroxyzine HCl 50 mg tablet 50 mg PO BID PRN (Reason: anxiety) sumatriptan succinate 50 mg tablet 50 mg PO Q2-4H PRN diltiazem HCl 120 mg capsule,extended release 24hr 120 mg PO DAILY meloxicam 15 mg tablet 15 mg PO DAILY Stand Alone Forms: Work/School Release Interventions: ED Discharge Assessment Last Done: 07/19/24 00:43 Discharge Date/Time: 07/19/24 00:45 Print Language: Lithuanian
[2024-07-18 19:42] VITALS: BP 123/82; PULSE 91; RESP 18; TEMP 36.4; O2SAT 99; BMI 26.3
[2024-07-18 20:05] LABS: MANUAL DIFF FLAG NO
[2024-07-18 20:06] LABS: Basophils Absolute Auto 0.1 X10*3/uL (0.0-0.2); Basophils Percent Auto 0.7 % (0-2); Eosinophils Absolute Auto 0.1 X10*3/uL (0.0-0.4); Hematocrit 42.4 % (37.0-47.0); Hemoglobin 14.3 g/dl (12.0-16.0); Imm Gran Abs Auto 0.03 X10*3/uL (0.00-0.03); Imm Gran Pct Auto 0.3 % (0.0-0.4); Lymphocytes Absolute Auto 2.6 X10*3/uL (1.2-4.9); Lymphocytes Percent Auto 28.7 % (20-40); Mean Corpuscular HGB Conc 33.7 g/dl (31.0-35.0); Mean Corpuscular Hemoglobin 30.6 pg (27.0-33.0); Mean Corpuscular Volume 90.6 fL (80.0-98.0); Mean Platelet Volume 10.7 fL (9.4-12.3); Monocytes Absolute Auto 0.7 X10*3/uL (0.1-1.2); Monocytes Percent Auto 7.7 % (2-11); Neutrophils Absolute Auto 5.6 x10*3/uL (2.0-8.3); Neutrophils Percent Auto 61.6 % (45-73); Platelet Count 257 X10*3/uL (160-400); Red Blood Count 4.68 X10*6/uL (4.20-5.50); Red Cell Distribution Width 12.7 % (11.0-16.0); White Blood Count 9.1 X10*3/uL (4.8-10.8)
[2024-07-18 20:25] LABS: UPreg QC Valid YES; Urine Pregnancy NEGATIVE (NEGATIVE)
[2024-07-18 22:41] VITALS: BP 118/71; PULSE 70; RESP 15; TEMP 36.7; O2SAT 100
[2024-07-18 22:44] LABS: Alanine Aminotransferase 9 U/L (0-31); Albumin Level 4.3 g/dL (3.5-5.0); Alkaline Phosphatase 53 U/L (39-117); Anion Gap 17 (12-20); Aspartate Amino Transferase 15 U/L (5-31); Blood Urea Nitrogen 11 mg/dL (9-16); Calcium 10.3 mg/dL (8.4-10.2); Carbon Dioxide 22 mmol/L (22-29); Chloride 107 mmol/L (96-108); Creatinine Clr Calc Pharmacy 92.1; Estimated Glomerular Filt Rate > 60; Glucose Random 93 mg/dL (60-115); Magnesium 1.8 mg/dL (1.6-2.6); Potassium 5.9 mmol/L (3.3-5.1); Sodium 140 mmol/L (135-145); Total Protein 7.4 g/dL (6.5-8.0)
[2024-07-18] MEDS: Lactated Ringers 1,000 ML 999 ML IV ×2 (23:01)
[2024-07-18 23:15] LABS: Potassium 3.9 mmol/L (3.3-5.1)
[2024-07-19 00:43] VITALS: BP 116/68; PULSE 65; RESP 16; TEMP 36.7; O2SAT 98
== END 2024-07-19 00:45 | disposition home or self-care (01) ==
PROVIDERS: Physician Assistant; Emergency Provider Emergency Medicine; PCP Nurse Practitioner Family
DX: R00.2 Palpitations (principal); E86.0 Dehydration; R42 Dizziness and giddiness; F41.1 Generalized anxiety disorder; R11.0 Nausea; R20.2 Paresthesia of skin; F43.0 Acute stress reaction; Z79.899 Other long term (current) drug therapy
CPT/HCPCS: 36415; 80053; 81025; 83735; 84132; 85025; 96360; 96361; 99283; 99284; J7120

== ENCOUNTER 2024-07-19 10:11 | Emergency (ER) | payer OTHER, SELFPAY ==
--- NOTE | ~2024-07-19 | CT_ITS ---
EXAMINATION: CT ANGIOGRAM HEAD CT ANGIOGRAM NECK CLINICAL INFORMATION: Numbness in face. COMPARISON: CT head and cervical spine from 01/31/2024. TECHNIQUE: Initial noncontrast office machine installer imaging of the head and neck was performed. Noncontrast head CT was also performed. Test bolus sequences followed by intravenous administration 70 mL of Omnipaque 350. Helical imaging was performed in the axial plane from the aortic arch to the skull vertex. Delayed postcontrast imaging of the head was also performed. The data was processed at the biotechnologist's workstation for generation of MIP sequences. Angled MIPs and volume rendered reformatted images were also generated at an offline 3D workstation. Stenoses are assessed in accordance with NASCET criteria unless otherwise indicated. This CT examination was performed using dose optimization techniques as appropriate, variously including the following: *Automated exposure control. *Adjustment of mA and/or kV according to patient size (this includes techniques or standardized protocols for targeted exams where dose is matched to indication/reason for exam; i.e. extremities or head). *Use of iterative reconstruction technique. DLP: 1928 mGy-cm FINDINGS: CT Head: There is no evidence of acute intracranial hemorrhage or edematous territorial infarction. Garcia-white matter differentiation is preserved. There is no abnormal attenuation within the brain parenchyma. The ventricles are normal in morphology and size. No evidence for obstructive hydrocephalus. No abnormal mass effect or midline shift. No extra-axial fluid collections. No pathologic intra-axial enhancement or regional oligemia. No acute soft tissue or osseous abnormalities. Near complete opacification of the left maxillary sinus. The mastoid air cells and middle ear cavities are clear. Multifocal odontogenic canal origins and periapical lucencies. CT Neck: The thyroid gland and remaining cervical soft tissues are within normal limits. No significant abnormalities of the cervical spine. CT Upper Chest: The visualized lung apices and upper mediastinum are within normal limits. Neck CTA: Aortic Arch: Normal contour and caliber. Classic 3 vessel branching pattern of the aortic arch. Great Vessel Origins: No significant stenosis of the branch origins. Right Common Carotid Artery: No focal stenosis or occlusion. Cervical Right Internal Carotid Artery: Normal opacification without focal stenosis or occlusion. Left Common Carotid Artery: No focal stenosis or occlusion. Cervical Left Internal Carotid Artery: Normal opacification without focal stenosis or occlusion. Cervical Right Vertebral Artery: No focal stenosis or occlusion. Cervical Left Vertebral Artery: Dominant. No focal stenosis or occlusion. Brain CTA: Intracranial Internal Carotid Arteries: No focal stenosis or occlusion. Right Anterior Cerebral Artery: Normal A1 segment. Normal opacification of the distal ANAYA segments. Left Anterior Cerebral Artery: Normal A1 segment. Normal opacification of the distal ANAYA segments. Anterior Communicating Artery: Normal. Right Middle Cerebral Artery: Normal M1 segment of the MCA without focal stenosis or occlusion. Normal arborization of the distal segments. Left Middle Cerebral Artery: Normal M1 segment of the MCA without focal stenosis or occlusion. Normal arborization of the distal segments. Right Vertebral Artery: The V4 segment largely terminates as the posterior inferior cerebellar artery. Left Vertebral Artery: Normal V4 segment. Normal opacification of the proximal segments of the posterior inferior cerebellar artery. Basilar Artery: Normal without focal stenosis or occlusion. Normal appearance of the proximal superior cerebellar arteries. Right Posterior Cerebral Artery: The P1 segment is mildly diminutive. origin of the LUMBER ESTIMATOR with robust opacification of the posterior communicating artery. Normal opacification of the distal LUMBER ESTIMATOR segments. Left Posterior Cerebral Artery: Normal P1 segment. Normal opacification of the distal LUMBER ESTIMATOR segments. Normal opacification of the superior sagittal, straight, transverse, and sigmoid sinuses. CT/CT angio head neck IMPRESSION: 1. No evidence of acute intracranial hemorrhage or edematous territorial infarction. 2. CTA of the head and neck without proximal occlusion or flow-limiting stenosis. 3. Extensive multifocal odontogenic disease. Prominent left maxillary sinus disease. Electronically signed by: Irwin Oshea DO 07/19/2024 03:48 PM EDT
[2024-07-19 10:22] VITALS: BP 142/84; PULSE 96; RESP 18; TEMP 36.6; O2SAT 98; BMI 26.6
--- NOTE | 2024-07-19 14:15 | ED_ITS ---
HPI - General Adult General Chief complaint: General Medical Stated complaint: l face numb, body ache Time Seen by Provider: 07/19/24 14:15 Source: patient Mode of arrival: ambulatory Limitations: no limitations History of Present Illness ED Provider: Rowan Mcknight PA-C HPI narrative: Patient is a 39 year old assigned female at with a history of anxiety presenting to the emergency department today with left sided facial numbness. Patient states that over the last few days she has been seen multiple times for this but what primarily concerns her is left sided facial numbness. Patient states that her PCP told her to come to the ER for a CT scan and Lyme testing. Patient denies any dizziness, abdominal pain, nausea, vomiting, fever, chills, blurry vision, double vision, loss of vision, chest pain, difficulty breathing, shortness of breath, back pain, night sweats, pain with urination, increased urinary frequency, increased urinary urgency, blood in her urine or stool, syncope or a near syncopal episode, recent trauma or falls, bowel incontinence, bladder incontinence, or any other complaints at this time. Onset (ago): day(s) Location: face and left Relieving factors: none Exacerbating factors: none Treatments prior to arrival: none Related Data Home Medications ?Medication ?Instructions ?Recorded ?Confirmed hydroxyzine HCl 50 mg tablet 50 mg PO BID PRN anxiety 04/23/23 diltiazem HCl 120 mg 120 mg PO DAILY 08/02/23 capsule,extended release 24 hr meloxicam 15 mg tablet 15 mg PO DAILY 01/19/24 sumatriptan succinate 50 mg tablet 50 mg PO Q2-4H PRN 03/01/24 Previous Rx's ?Medication ?Instructions ?Recorded gabapentin 100 mg capsule 100 mg PO BID #30 caps 04/19/23 ketorolac 10 mg tablet 10 mg PO TID PRN pain 5 days #15 08/26/23 tabs lorazepam 0.5 mg tablet 0.5 mg PO BEDTIME PRN anxiety #10 10/17/23 tabs benzonatate 100 mg capsule 100 mg PO BID PRN cough #10 caps 12/29/23 lhlevyncug-wfltkdtcexihw-leuzanwk 1 cap PO Q4-6H PRN pain #14 caps 01/07/24 50 mg-300 mg-40 mg capsule (Fioricet) meclizine 25 mg tablet 25 mg PO DAILY PRN dizziness #7 01/26/24 tabs cyclobenzaprine 10 mg tablet 10 mg PO TID PRN muscle spasm #20 02/11/24 tabs esomeprazole magnesium 40 mg 40 mg PO DAILY #30 caps 03/30/24 capsule,delayed release (Nexium) ketoconazole 2 % topical cream 1 appl topical BID #30 grams 05/30/24 doxycycline hyclate 100 mg tablet 100 mg PO BID 7 days #14 tabs 07/19/24 Allergies Allergy/AdvReac Type Severity Reaction Status Date / Time No Known Allergies Allergy Unknown NOT Verified 07/19/24 10:25 APPLICABLE Review of Systems 2 Constitutional: Constitutional: Reports no additional constitutional complaints, Denies chills, Denies fever(s) and Denies night sweats Eyes: Eyes: Reports no additional eye complaints, Denies blurry vision, Denies change in vision, Denies diplopia, Denies eye discharge, Denies loss of vision and Denies eye pain ENT: Comments: left sided facial numbness Cardiovascular: Cardiovascular: Reports no additional cardiovascular complaints, Denies chest pain, Denies lightheadedness, Denies Loss of Consciousness and Denies dyspnea Respiratory: Respiratory: Reports no additional respiratory complaints and Denies dyspnea Gastrointestinal: Gastrointestinal: Reports no additional gastrointestinal complaints, Denies abdominal pain, Denies melena, Denies hematochezia, Denies change in bowel habits and Denies change in stool character Genitourinary: Genitourinary: Denies hematuria, Denies urinary frequency, Denies dysuria, Denies urinary incontinence, Denies urinary hesitancy and Denies urinary urgency Musculoskeletal: Musculoskeletal: Reports no additional musculoskeletal complaints Neurologic: Denies loss of vision Psychiatric: Psychiatric: Reports no additional psychiatric complaints Endocrine: Endocrine: Reports no additional endocrine complaints Hematologic/Lymphatic: Hematologic/Lymphatic: Reports no additional hematologic/lymphatic complaints Allergic/Immunologic: Allergic/Immunologic: Reports no additional allergic/immunologic complaints [facility] Past Medical History Attestation statement: The following information was validated with the patient. Source: old records reviewed and nursing notes reviewed Medical History Lyme disease Heart palpitations Anxiety Cholecystectomy planned delivery delivered Surgical History S/P cholecystectomy Social History Social History Alcohol intake: never Patient Tobacco Use Status: Current everyday Tobacco user Tobacco use type: Smokeless Tobacco Smoked in Last 30 Days: Yes Use of substances other than those prescribed or required for medical reasons: Yes Substance Use Type: Marijuana Advance Directives: No Do you have a plan to hurt others: No Plan Patient : No Physical Exam ED Vital Signs: Vital Signs - 24 hr 07/19/24 10:22 Temperature 98 F Pulse Rate 96 Respiratory Rate 18 Blood Pressure 142/84 H Pulse Oximetry 98 Oxygen Delivery Method Room Air BMI result Body Mass Index 26.6 Const General: cooperative, no acute distress, alert and awake Nutritional Appearance: well nourished Orientation/consciousness: patient oriented x3 Limitations: no limitations HENMT Head: Yes normal to inspection and Yes atraumatic Ears: hearing grossly normal bilaterally and external ears normal General nose exam: Normal external nose present, no nasal discharge noted and no epistaxis Face and sinus: Yes normal facial exam, No abrasion and No laceration Mouth: Normal oral and palatal mucosa present, no drooling and no muffled voice Eyes General: appearance normal, both eyes and all related structures Periorbital: periorbital findings normal Eyelids: Yes eyelids normal Conjunctivae: conjunctivae normal Pupils: Equal, round and reactive pupils present EOM: EOMs intact bilaterally Neck Neck: Yes normal visual inspection, Yes full ROM and Yes no lymphadenopathy Chest Chest palpation & inspection: normal inspection of the chest Resp Effort & Inspection: normal respiratory effort and able to speak in complete sentences GI Inspection: Yes normal to inspection Neuro General: patient oriented x3 and moves all extremities Cranial nerves: Yes Equal, round and reactive pupils present Cognition (Neuro): normal cognition Extrem General: Yes normal to inspection, Yes full ROM and Yes capillary refill normal Psych Appearance: grossly normal Mental Status: mental status grossly normal Affect: normal affect Attitude: cooperative Thought process: Normal thought process present Thought content: Normal thought content present Insight: Good insight present (Psych) Medications Administered Discontinued Medications Generic Name Dose Route Start Last Admin Trade Name Freq PRN Reason Stop Dose Admin Iohexol 100 ml 07/19/24 14:34 07/19/24 14:34 Iohexol 350 Mg/Ml 100 Ml Infus..Btl IV 07/19/24 14:35 70 ml ONCE ONE Administration Medical Decision Making Medical Decision Making MDM Narrative: Patient is a 39 year old assigned female at with a history of anxiety presenting to the emergency department today with left sided facial facial numbness. Patient's physical exam was unremarkable. Patient's blood work was unremarkable. Patient's CTA of the head and neck showed left sinus disease. I explained my physical exam findings as well as all test results to the patient. I answered all questions asked by the patient. I stressed the importance of the patient taking her medication as directed (either prescribed or as the over the counter packaging recommends). I stressed the importance of the patient following up with her primary care provider. I stressed the importance of the patient returning to the emergency department immediately if her symptoms were to worsen or if she were to develop any dizziness, shortness of breath, difficulty breathing, chest pain, blurry vision, loss of vision, nausea, vomiting, abdominal pain, fever, chills, back pain, or any other complaints. Patient verbalized agreement and understanding with this treatment plan and discharge. Differential Diagnosis Differential Diagnoses: The differential diagnosis associated with the presentation includes Paresthesia Sinusitis Admission/Observation Consideration of admission/observation: Escalation of care including admission/observation considered Patient would have been admitted to the hospital had her work up had any findings where hospital admission was appropriate and her clinical presentation warranted hospital admission. Lab Data [facility] Lab Attestation statement: I reviewed the patient's lab results. My interpretation of these results are in the [facility] Rationale portion of this note. 07/19/24 14:31 07/19/24 14:31 Labs: Lab Results 07/19/24 Range/Units 14:31 WBC 8.5 (4.8-10.8) X10*3/uL RBC 4.21 (4.20-5.50) X10*6/uL Hgb 13.1 (12.0-16.0) g/dl Hct 38.3 (37.0-47.0) % MCV 91.0 (80.0-98.0) fL MCH 31.1 (27.0-33.0) pg MCHC 34.2 (31.0-35.0) g/dl RDW 12.4 (11.0-16.0) % Plt Count 228 (160-400) X10*3/uL MPV 10.7 (9.4-12.3) fL Immature Gran % (Auto) 0.2 (0.0-0.4) % Neut % (Auto) 68.1 (45-73) % Lymph % (Auto) 24.4 (20-40) % [place] % (Auto) 6.3 (2-11) % Eos % (Auto) 0.4 (0-4) % Baso % (Auto) 0.6 (0-2) % Lymph # (Auto) 2.1 (1.2-4.9) X10*3/uL [place] # (Auto) 0.5 (0.1-1.2) X10*3/uL Eos # (Auto) 0.0 (0.0-0.4) X10*3/uL Baso # (Auto) 0.1 (0.0-0.2) X10*3/uL Abs Immat Gran (auto) 0.02 (0.00-0.03) X10*3/uL Absolute Neuts (auto) 5.8 (2.0-8.3) x10*3/uL Absolute Nucleated RBC 0.000 (0.0-0.012) X10*3/uL Nucleated RBC % (auto) 0.0 (0.0-0.2) /100WBC ESR 6 (0-20) MM/HR Sodium 141 (135-145) mmol/L Potassium 4.9 D (3.3-5.1) mmol/L Chloride 107 (96-108) mmol/L Carbon Dioxide 23 (22-29) mmol/L Anion Gap 16 (12-20) BUN 8 L (9-16) mg/dL Creatinine 0.70 (0.5-1.4) mg/dL Estim Creat Clear Calc 109.8 Estimated GFR > 60 Random Glucose 73 (60-115) mg/dL Calcium 9.5 D (8.4-10.2) mg/dL Total Bilirubin 1.4 H (0.0-1.0) mg/dL AST 14 (5-31) U/L ALT 8 (0-31) U/L Alkaline Phosphatase 46 (39-117) U/L C-Reactive Protein < 0.10 (< or = 0.50) mg/dL Total Protein 6.8 (6.5-8.0) g/dL Albumin 3.9 (3.5-5.0) g/dL Beta HCG, Quant < 2 mIU/mL Independent Interpretation I performed an independent interpretation of an: CT Scan Interpretation: My interpretation is in agreement with the radiologist's impression of these imaging studies. - EXAMINATION: CT ANGIOGRAM HEAD CT ANGIOGRAM NECK CLINICAL INFORMATION: Numbness in face. COMPARISON: CT head and cervical spine from 01/31/2024. TECHNIQUE: Initial noncontrast pizza chef imaging of the head and neck was performed. Noncontrast head CT was also performed. Test bolus sequences followed by intravenous administration 70 mL of Omnipaque 350. Helical imaging was performed in the axial plane from the aortic arch to the skull vertex. Delayed postcontrast imaging of the head was also performed. The data was processed at the ophthalmic medical technologist's workstation for generation of MIP sequences. Angled MIPs and volume rendered reformatted images were also generated at an offline 3D workstation. Stenoses are assessed in accordance with NASCET criteria unless otherwise indicated. This CT examination was performed using dose optimization techniques as appropriate, variously including the following: *Automated exposure control. *Adjustment of mA and/or kV according to patient size (this includes techniques or standardized protocols for targeted exams where dose is matched to indication/reason for exam; i.e. extremities or head). *Use of iterative reconstruction technique. DLP: 1928 mGy-cm FINDINGS: CT Head: There is no evidence of acute intracranial hemorrhage or edematous territorial infarction. Garcia-white matter differentiation is preserved. There is no abnormal attenuation within the brain parenchyma. The ventricles are normal in morphology and size. No evidence for obstructive hydrocephalus. No abnormal mass effect or midline shift. No extra-axial fluid collections. No pathologic intra-axial enhancement or regional oligemia. No acute soft tissue or osseous abnormalities. Near complete opacification of the left maxillary sinus. The mastoid air cells and middle ear cavities are clear. Multifocal odontogenic canal origins and periapical lucencies. CT Neck: The thyroid gland and remaining cervical soft tissues are within normal limits. No significant abnormalities of the cervical spine. CT Upper Chest: The visualized lung apices and upper mediastinum are within normal limits. Neck CTA: Aortic Arch: Normal contour and caliber. Classic 3 vessel branching pattern of the aortic arch. Great Vessel Origins: No significant stenosis of the branch origins. Right Common Carotid Artery: No focal stenosis or occlusion. Cervical Right Internal Carotid Artery: Normal opacification without focal stenosis or occlusion. Left Common Carotid Artery: No focal stenosis or occlusion. Cervical Left Internal Carotid Artery: Normal opacification without focal stenosis or occlusion. Cervical Right Vertebral Artery: No focal stenosis or occlusion. Cervical Left Vertebral Artery: Dominant. No focal stenosis or occlusion. Brain CTA: Intracranial Internal Carotid Arteries: No focal stenosis or occlusion. Right Anterior Cerebral Artery: Normal A1 segment. Normal opacification of the distal ANAYA segments. Left Anterior Cerebral Artery: Normal A1 segment. Normal opacification of the distal ANAYA segments. Anterior Communicating Artery: Normal. Right Middle Cerebral Artery: Normal M1 segment of the MCA without focal stenosis or occlusion. Normal arborization of the distal segments. Left Middle Cerebral Artery: Normal M1 segment of the MCA without focal stenosis or occlusion. Normal arborization of the distal segments. Right Vertebral Artery: The V4 segment largely terminates as the posterior inferior cerebellar artery. Left Vertebral Artery: Normal V4 segment. Normal opacification of the proximal segments of the posterior inferior cerebellar artery. Basilar Artery: Normal without focal stenosis or occlusion. Normal appearance of the proximal superior cerebellar arteries. Right Posterior Cerebral Artery: The P1 segment is mildly diminutive. origin of the EDUCATION RN with robust opacification of the posterior communicating artery. Normal opacification of the distal EDUCATION RN segments. Left Posterior Cerebral Artery: Normal P1 segment. Normal opacification of the distal EDUCATION RN segments. Normal opacification of the superior sagittal, straight, transverse, and sigmoid sinuses. CT/CT angio head neck IMPRESSION: 1. No evidence of acute intracranial hemorrhage or edematous territorial infarction. 2. CTA of the head and neck without proximal occlusion or flow-limiting stenosis. 3. Extensive multifocal odontogenic disease. Prominent left maxillary sinus disease. Electronically signed by: Irwin Oshea DO 07/19/2024 03:48 PM EDT RP Dictated By: Jamey Oshea DO Signed By: Electronically signed by Jamey Oshea DO 07/19/24 1548 Radiology Impression Discussion of test interpretation with radiology: I have reviewed the radiologist's reading. Prescription Management I considered prescription management with: Antibiotic (patient prescribed doxycycline for sinusitis) Discharge Plan Discharge Clinical Impression: Disease of nasal sinus, Sinusitis, Paresthesia Patient Disposition: Home, Self-Care Instructions: Sinusitis (ED), Paresthesia (ED) Additional Instructions: Your CT scan of the head/neck showed significant sinus disease but was otherwise unremarkable. Follow up with your primary care provider and your neurologist. Return to the emergency department immediately if your symptoms worsen or if you develop any dizziness, shortness of breath, difficulty breathing, chest pain, blurry vision, loss of vision, nausea, vomiting, abdominal pain, fever, chills, back pain, or any other complaints. Your lyme testing will result in a few days - we do NOT call for negative tests. Please see the information below about our Patient Portal. If you are not yet enrolled in the [facility] Patient Portal, you will receive an enrollment email invitation following your visit to any [facility] care setting. You may also self-enroll in the Patient Portal by visiting our website: [email or web address] The following information is required to access the Patient Portal: - Your [facility] Medical Record Number - Your personal home email address (must match what is in your electronic medical record, Registration staff can assist with this) - Name - Date of Capabilities of the Patient Portal: - Message some providers - View upcoming appointments - Access your health summary, medical history, and visit history - View current conditions and allergies - View procedure and lab results - View your medications, including guidelines, side effects, and precautions - Complete pre-appointment questionnaires requested by your provider - Ready summary reports of your office visits and procedures To access the Patient Portal Mobile Mel[employer], follow these directions: - Search [employer] in the [employer] Store or [employer] - Download the Melo - Search for [facility] - Enter your login/password Prescriptions: New doxycycline hyclate 100 mg tablet 100 mg PO BID 7 Days Qty: 14 0RF No Action esomeprazole magnesium [Nexium] 40 mg capsule,delayed release(DR/EC) 40 mg PO DAILY Qty: 30 5RF jscslojbqw-ihyyslesuzkhl-eywc [Fioricet] 50-300-40 mg capsule 1 cap PO Q4-6H PRN (Reason: pain) Qty: 14 0RF gabapentin 100 mg capsule 100 mg PO BID Qty: 30 0RF ketorolac 10 mg tablet 10 mg PO TID PRN (Reason: pain) 5 Days Qty: 15 0RF lorazepam 0.5 mg tablet 0.5 mg PO BEDTIME PRN (Reason: anxiety) Qty: 10 0RF benzonatate 100 mg capsule 100 mg PO BID PRN (Reason: cough) Qty: 10 0RF meclizine 25 mg tablet 25 mg PO DAILY PRN (Reason: dizziness) Qty: 7 0RF cyclobenzaprine 10 mg tablet 10 mg PO TID PRN (Reason: muscle spasm) Qty: 20 0RF ketoconazole 2 % cream 1 appl topical BID Qty: 30 0RF hydroxyzine HCl 50 mg tablet 50 mg PO BID PRN (Reason: anxiety) sumatriptan succinate 50 mg tablet 50 mg PO Q2-4H PRN diltiazem HCl 120 mg capsule,extended release 24hr 120 mg PO DAILY meloxicam 15 mg tablet 15 mg PO DAILY Referrals: [facility] Family Medicine [Provider Group] (Call to establish and follow up with a primary care provider. If you already have a primary care provider, please follow up with them.) [facility] Primary Care, [place] [Provider Group] (Call to establish and follow up with a primary care provider. If you already have a primary care provider, please follow up with them.) [facility] Primary Care,[place] [Provider Group] (Call to establish and follow up with a primary care provider. If you already have a primary care provider, please follow up with them.) [facility] Neuro[facility] [Provider Group] (Call to establish and follow up with a neurologist. If you already have a neurologist, please follow up with them.) Interventions: ED Discharge Assessment Last Done: 07/19/24 16:03 Print Language: Cambodian
[2024-07-19] MEDS: iohexoL 350 MG/ML 100 ML INFUS..BTL IV (14:34)
[2024-07-19 14:35] LABS: MANUAL DIFF FLAG NO
[2024-07-19 14:37] LABS: Basophils Absolute Auto 0.1 X10*3/uL (0.0-0.2); Basophils Percent Auto 0.6 % (0-2); Eosinophils Percent Auto 0.4 % (0-4); Hematocrit 38.3 % (37.0-47.0); Hemoglobin 13.1 g/dl (12.0-16.0); Imm Gran Abs Auto 0.02 X10*3/uL (0.00-0.03); Imm Gran Pct Auto 0.2 % (0.0-0.4); Lymphocytes Absolute Auto 2.1 X10*3/uL (1.2-4.9); Lymphocytes Percent Auto 24.4 % (20-40); Mean Corpuscular HGB Conc 34.2 g/dl (31.0-35.0); Mean Corpuscular Hemoglobin 31.1 pg (27.0-33.0); Mean Platelet Volume 10.7 fL (9.4-12.3); Monocytes Absolute Auto 0.5 X10*3/uL (0.1-1.2); Monocytes Percent Auto 6.3 % (2-11); Neutrophils Absolute Auto 5.8 x10*3/uL (2.0-8.3); Neutrophils Percent Auto 68.1 % (45-73); Platelet Count 228 X10*3/uL (160-400); Red Blood Count 4.21 X10*6/uL (4.20-5.50); Red Cell Distribution Width 12.4 % (11.0-16.0); White Blood Count 8.5 X10*3/uL (4.8-10.8)
[2024-07-19 14:56] LABS: Alanine Aminotransferase 8 U/L (0-31); Albumin Level 3.9 g/dL (3.5-5.0); Alkaline Phosphatase 46 U/L (39-117); Anion Gap 16 (12-20); Aspartate Amino Transferase 14 U/L (5-31); Bilirubin Total 1.4 mg/dL (0.0-1.0); Blood Urea Nitrogen 8 mg/dL (9-16); C Reactive Protein < 0.10 mg/dL (< or = 0.50); Calcium 9.5 mg/dL (8.4-10.2); Carbon Dioxide 23 mmol/L (22-29); Chloride 107 mmol/L (96-108); Creatinine Clr Calc Pharmacy 109.8; Estimated Glomerular Filt Rate > 60; Glucose Random 73 mg/dL (60-115); Potassium 4.9 mmol/L (3.3-5.1); Sodium 141 mmol/L (135-145); Total Protein 6.8 g/dL (6.5-8.0)
[2024-07-19 14:57] LABS: HCG Quantitative < 2 mIU/mL
[2024-07-19 15:18] LABS: Erythrocyte Sedimentation Rate 6 MM/HR (0-20)
[2024-07-19 16:03] VITALS: BP 142/84; PULSE 96; RESP 18; TEMP 36.6; O2SAT 98
[2024-07-21 06:03] LABS: A. Phagocytphilium DNA,RT-PCR NOT DETECTED (NOT DETECTED); Babesia Microti DNA, RT-PCR NOT DETECTED (NOT DETECTED); Borrelia Miyamotoi,DNA RT-PCR NOT DETECTED (NOT DETECTED); E.Chaffeensis DNA RT-PCR NOT DETECTED (NOT DETECTED); Lyme(Borrelia ssp)DNA RT-PCR NOT DETECTED (NOT DETECTED)
[2024-07-21 14:54] LABS: Lyme Blot 1.53 index
[2024-07-25 15:13] LABS: Lyme Abs Screen POSITIVE
[2024-07-25 15:14] LABS: 18 KD (IgG) Band NON-REACTIVE; 23 KD (IgG) Band NON-REACTIVE; 23 KD (IgM) Band REACTIVE; 28 KD (IgG) Band NON-REACTIVE; 30 KD (IgG) Band NON-REACTIVE; 39 KD (IgM) Band NON-REACTIVE; 39KD (IgG) Band REACTIVE; 41 KD (IgM) Band NON-REACTIVE; 41KD (IgG) Band NON-REACTIVE; 45 KD (IgG) Band NON-REACTIVE; 58 KD (IgG) Band NON-REACTIVE; 66 KD (IgG) Band NON-REACTIVE; 93 KD (IgG) Band NON-REACTIVE; Lyme IgG Blot Interp NEGATIVE (NEGATIVE); Lyme IgM Blot Interp NEGATIVE (NEGATIVE)
--- NOTE | 2024-07-27 19:11 | ED.GENADULT ---
HPI - General Adult General Chief complaint: General Medical Stated complaint: l face numb, body ache Time Seen by Provider: 07/19/24 14:15 Source: patient Mode of arrival: ambulatory Limitations: no limitations History of Present Illness Location: face and left Relieving factors: none Exacerbating factors: none Treatments prior to arrival: none Related Data Home Medications ?Medication ?Instructions ?Recorded ?Confirmed hydroxyzine HCl 50 mg tablet 50 mg PO BID PRN anxiety 04/23/23 diltiazem HCl 120 mg 120 mg PO DAILY 08/02/23 capsule,extended release 24 hr meloxicam 15 mg tablet 15 mg PO DAILY 01/19/24 sumatriptan succinate 50 mg tablet 50 mg PO Q2-4H PRN 03/01/24 Previous Rx's ?Medication ?Instructions ?Recorded gabapentin 100 mg capsule 100 mg PO BID #30 caps 04/19/23 ketorolac 10 mg tablet 10 mg PO TID PRN pain 5 days #15 08/26/23 tabs lorazepam 0.5 mg tablet 0.5 mg PO BEDTIME PRN anxiety #10 10/17/23 tabs benzonatate 100 mg capsule 100 mg PO BID PRN cough #10 caps 12/29/23 dfetbkdtin-zdbaaalnjaukm-wdjsaaqi 1 cap PO Q4-6H PRN pain #14 caps 01/07/24 50 mg-300 mg-40 mg capsule (Fioricet) meclizine 25 mg tablet 25 mg PO DAILY PRN dizziness #7 01/26/24 tabs cyclobenzaprine 10 mg tablet 10 mg PO TID PRN muscle spasm #20 02/11/24 tabs esomeprazole magnesium 40 mg 40 mg PO DAILY #30 caps 03/30/24 capsule,delayed release (Nexium) ketoconazole 2 % topical cream 1 appl topical BID #30 grams 05/30/24 doxycycline hyclate 100 mg tablet 100 mg PO BID 7 days #14 tabs 07/19/24 doxycycline hyclate 100 mg capsule 100 mg PO BID 14 days #28 caps 07/27/24 Allergies Allergy/AdvReac Type Severity Reaction Status Date / Time No Known Allergies Allergy Unknown NOT Verified 07/19/24 10:25 [facility] Past Medical History Medical History Lyme disease Heart palpitations Anxiety Cholecystectomy planned delivery delivered Surgical History S/P cholecystectomy Social History Social History Alcohol intake: never Patient Tobacco Use Status: Current everyday Tobacco user Tobacco use type: Smokeless Tobacco Smoked in Last 30 Days: Yes Use of substances other than those prescribed or required for medical reasons: Yes Substance Use Type: Marijuana Advance Directives: No Do you have a plan to hurt others: No Plan Patient : No Physical Exam ED Vital Signs: BMI result Body Mass Index 26.6 Medications Administered Discontinued Medications Generic Name Dose Route Start Last Admin Trade Name Freq PRN Reason Stop Dose Admin Iohexol 100 ml 07/19/24 14:34 07/19/24 14:34 Iohexol 350 Mg/Ml 100 Ml Infus..Btl IV 07/19/24 14:35 70 ml ONCE ONE Administration Medical Decision Making Lab Data 07/19/24 14:31 07/19/24 14:31 Labs: Lab Results 07/19/24 Range/Units 14:31 WBC 8.5 (4.8-10.8) X10*3/uL RBC 4.21 (4.20-5.50) X10*6/uL Hgb 13.1 (12.0-16.0) g/dl Hct 38.3 (37.0-47.0) % MCV 91.0 (80.0-98.0) fL MCH 31.1 (27.0-33.0) pg MCHC 34.2 (31.0-35.0) g/dl RDW 12.4 (11.0-16.0) % Plt Count 228 (160-400) X10*3/uL MPV 10.7 (9.4-12.3) fL Immature Gran % (Auto) 0.2 (0.0-0.4) % Neut % (Auto) 68.1 (45-73) % Lymph % (Auto) 24.4 (20-40) % [place] % (Auto) 6.3 (2-11) % Eos % (Auto) 0.4 (0-4) % Baso % (Auto) 0.6 (0-2) % Lymph # (Auto) 2.1 (1.2-4.9) X10*3/uL [place] # (Auto) 0.5 (0.1-1.2) X10*3/uL Eos # (Auto) 0.0 (0.0-0.4) X10*3/uL Baso # (Auto) 0.1 (0.0-0.2) X10*3/uL Abs Immat Gran (auto) 0.02 (0.00-0.03) X10*3/uL Absolute Neuts (auto) 5.8 (2.0-8.3) x10*3/uL Absolute Nucleated RBC 0.000 (0.0-0.012) X10*3/uL Nucleated RBC % (auto) 0.0 (0.0-0.2) /100WBC ESR 6 (0-20) MM/HR Sodium 141 (135-145) mmol/L Potassium 4.9 D (3.3-5.1) mmol/L Chloride 107 (96-108) mmol/L Carbon Dioxide 23 (22-29) mmol/L Anion Gap 16 (12-20) BUN 8 L (9-16) mg/dL Creatinine 0.70 (0.5-1.4) mg/dL Estim Creat Clear Calc 109.8 Estimated GFR > 60 Random Glucose 73 (60-115) mg/dL Calcium 9.5 D (8.4-10.2) mg/dL Total Bilirubin 1.4 H (0.0-1.0) mg/dL AST 14 (5-31) U/L ALT 8 (0-31) U/L Alkaline Phosphatase 46 (39-117) U/L C-Reactive Protein < 0.10 (< or = 0.50) mg/dL Total Protein 6.8 (6.5-8.0) g/dL Albumin 3.9 (3.5-5.0) g/dL Beta HCG, Quant < 2 mIU/mL A.phagocytophil DNA PCR NOT DETECTED (NOT DETECTED) Babesia microti DNA PCR NOT DETECTED (NOT DETECTED) Borrelia sp DNA (PCR) NOT DETECTED (NOT DETECTED) Lyme Screen IgG & IgM POSITIVE Lyme Progressive Test 1.53 H index Lyme IgG 18 kDa Band NON-REACTIVE Lyme IgG 23 kDa Band NON-REACTIVE Lyme IgG 28 kDa Band NON-REACTIVE Lyme IgG 30 kDa Band NON-REACTIVE Lyme IgG 45 kDa Band NON-REACTIVE Lyme IgG 58 kDa Band NON-REACTIVE Lyme IgG 66 kDa Band NON-REACTIVE Lyme IgG 93 kDa Band NON-REACTIVE Lyme IgG Ab (Immblot) NEGATIVE (NEGATIVE) Lyme IgM 23 kDa Band REACTIVE A Lyme IgM 39 kDa Band NON-REACTIVE Lyme IgM 41 kDa Band NON-REACTIVE Lyme IgM Interpretaton NEGATIVE (NEGATIVE) Borrelia miyamotoi (PCR) NOT DETECTED (NOT DETECTED) E.chaffeensis DNA (PCR) NOT DETECTED (NOT DETECTED) Tick-borne Disease PCR SEE NOTE Discharge Plan Discharge Clinical Impression: Disease of nasal sinus, Sinusitis, Paresthesia Patient Disposition: Home, Self-Care Instructions: Sinusitis (ED), Paresthesia (ED) Additional Instructions: Your CT scan of the head/neck showed significant sinus disease but was otherwise unremarkable. Follow up with your primary care provider and your neurologist. Return to the emergency department immediately if your symptoms worsen or if you develop any dizziness, shortness of breath, difficulty breathing, chest pain, blurry vision, loss of vision, nausea, vomiting, abdominal pain, fever, chills, back pain, or any other complaints. Your lyme testing will result in a few days - we do NOT call for negative tests. Please see the information below about our Patient Portal. If you are not yet enrolled in the [facility] Patient Portal, you will receive an enrollment email invitation following your visit to any [facility] setting. You may also self-enroll in the Patient Portal by visiting our website: [email or web address] The following information is required to access the Patient Portal: - Your [facility] Medical Record Number - Your personal home email address (must match what is in your electronic medical record, Registration staff can assist with this) - Name - Date of Capabilities of the Patient Portal: - Message some providers - View upcoming appointments - Access your health summary, medical history, and visit history - View current conditions and allergies - View procedure and lab results - View your medications, including guidelines, side effects, and precautions - Complete pre-appointment questionnaires requested by your provider - Ready summary reports of your office visits and procedures To access the Patient Portal Mobile [employer], follow these directions: - Search [employer] in the [employer] Store or [employer] Store - Download the Melo - Search for [facility] - Enter your login/password Prescriptions: New doxycycline hyclate 100 mg tablet 100 mg PO BID 7 Days Qty: 14 0RF doxycycline hyclate 100 mg capsule 100 mg PO BID 14 Days Qty: 28 0RF No Action esomeprazole magnesium [Nexium] 40 mg capsule,delayed release(DR/EC) 40 mg PO DAILY Qty: 30 5RF njhmcwculr-ddrktwksbffwz-bmsr [Fioricet] 50-300-40 mg capsule 1 cap PO Q4-6H PRN (Reason: pain) Qty: 14 0RF gabapentin 100 mg capsule 100 mg PO BID Qty: 30 0RF ketorolac 10 mg tablet 10 mg PO TID PRN (Reason: pain) 5 Days Qty: 15 0RF lorazepam 0.5 mg tablet 0.5 mg PO BEDTIME PRN (Reason: anxiety) Qty: 10 0RF benzonatate 100 mg capsule 100 mg PO BID PRN (Reason: cough) Qty: 10 0RF meclizine 25 mg tablet 25 mg PO DAILY PRN (Reason: dizziness) Qty: 7 0RF cyclobenzaprine 10 mg tablet 10 mg PO TID PRN (Reason: muscle spasm) Qty: 20 0RF ketoconazole 2 % cream 1 appl topical BID Qty: 30 0RF hydroxyzine HCl 50 mg tablet 50 mg PO BID PRN (Reason: anxiety) sumatriptan succinate 50 mg tablet 50 mg PO Q2-4H PRN diltiazem HCl 120 mg capsule,extended release 24hr 120 mg PO DAILY meloxicam 15 mg tablet 15 mg PO DAILY Referrals: [facility] [Provider Group] (Call to establish and follow up with a primary care provider. If you already have a primary care provider, please follow up with them.) [facility] [Provider Group] (Call to establish and follow up with a primary care provider. If you already have a primary care provider, please follow up with them.) [facility] [Provider Group] (Call to establish and follow up with a primary care provider. If you already have a primary care provider, please follow up with them.) [facility] Neuro/Sleep [Provider Group] (Call to establish and follow up with a neurologist. If you already have a neurologist, please follow up with them.) Interventions: ED Discharge Assessment Last Done: 07/19/24 16:03 Discharge Date/Time: 07/19/24 16:05 Print Language: Icelandic
== END 2024-07-19 16:05 | disposition home or self-care (01) ==
PROVIDERS: Physician Assistant Medical; Emergency Provider Emergency Medicine Emergency Medical Services
DX: J32.9 Chronic sinusitis, unspecified (principal); R20.2 Paresthesia of skin; F17.210 Nicotine dependence, cigarettes, uncomplicated
CPT/HCPCS: 36415; 70496; 70498; 80053; 84702; 85025; 85652; 86140; 86617; 86618; 87468; 87469; 87478; 87484; 87798; 99284; Q9967

== ENCOUNTER 2024-09-18 02:04 | Emergency (ER) | payer OTHER, SELFPAY ==
[2024-09-18 02:11] VITALS: BP 135/85; PULSE 96; RESP 16; TEMP 36.4; O2SAT 100; BMI 26.4
--- NOTE | 2024-09-18 02:17 | ED_ITS ---
HPI - General Adult General Chief complaint: General Medical Stated complaint: L Breast burning sensation Time Seen by Provider: 09/18/24 02:11 Source: patient and old records reviewed Mode of arrival: ambulatory Limitations: no limitations History of Present Illness ED Provider: RAJWINDER SEVILLA narrative: 39 yo female with PMH of palpitations, anxiety, lyme disease, possible POTs, health anxiety here with c/o recent normal mammogram at [facility] last week before bed thought she felt a lump in the breast then she scratched the nipple area with her nails as she thought there was doing to be discharge. No discharge expressed. No rash. She now has burning at the nipple area - came to get it checked out. Has had negative breast biopsy in the past, no known risk factors for breast cancer. MD complaint: breast burning Onset (ago): day(s) (9pm on Wednesday) Location: chest (L breast) Radiation: non-radiation Severity: mild Quality: burning Pain Consistency: constant Relieving factors: none Exacerbating factors: other (palpation) Associated symptoms: denies other symptoms Treatments prior to arrival: none Related Data Home Medications ?Medication ?Instructions ?Recorded ?Confirmed hydroxyzine HCl 50 mg tablet 50 mg PO BID PRN anxiety 04/23/23 diltiazem HCl 120 mg 120 mg PO DAILY 08/02/23 capsule,extended release 24 hr meloxicam 15 mg tablet 15 mg PO DAILY 01/19/24 sumatriptan succinate 50 mg tablet 50 mg PO Q2-4H PRN 03/01/24 Previous Rx's ?Medication ?Instructions ?Recorded gabapentin 100 mg capsule 100 mg PO BID #30 caps 04/19/23 ketorolac 10 mg tablet 10 mg PO TID PRN pain 5 days #15 08/26/23 tabs lorazepam 0.5 mg tablet 0.5 mg PO BEDTIME PRN anxiety #10 10/17/23 tabs benzonatate 100 mg capsule 100 mg PO BID PRN cough #10 caps 12/29/23 rvxrvunvxl-dgwxptibjaonx-drbaygvm 1 cap PO Q4-6H PRN pain #14 caps 01/07/24 50 mg-300 mg-40 mg capsule (Fioricet) meclizine 25 mg tablet 25 mg PO DAILY PRN dizziness #7 01/26/24 tabs cyclobenzaprine 10 mg tablet 10 mg PO TID PRN muscle spasm #20 02/11/24 tabs esomeprazole magnesium 40 mg 40 mg PO DAILY #30 caps 03/30/24 capsule,delayed release (Nexium) ketoconazole 2 % topical cream 1 appl topical BID #30 grams 05/30/24 doxycycline hyclate 100 mg tablet 100 mg PO BID 7 days #14 tabs 07/19/24 doxycycline hyclate 100 mg capsule 100 mg PO BID 14 days #28 caps 07/27/24 mupirocin 2 % topical ointment 1 appl topical BID 5 days #15 grams 09/18/24 Allergies Allergy/AdvReac Type Severity Reaction Status Date / Time No Known Allergies Allergy Unknown NOT Verified 09/18/24 02:13 APPLICABLE Review of Systems Review of Systems: Constitutional : No Fever, No Chills, Cardiovascular : No Chest Pain, No SOB Respiratory : No Dyspnea Gastrointestinal : No abdominal pain Musculoskeletal : No Joint Swelling Skin : No rash, positive skin abrasion Neuro : No Weakness, No Numbness Psych : pos anxiety PMFSH Past Medical History Attestation statement: The following information was validated with the patient. Source: old records reviewed Medical History Lyme disease Heart palpitations Anxiety Cholecystectomy planned delivery delivered Surgical History S/P cholecystectomy Social History Social History Alcohol intake: current Alcohol intake frequency: other Patient Tobacco Use Status: Current everyday Tobacco user Tobacco use type: Smokeless Tobacco Substance Use Type: Marijuana Physical Exam ED Vital Signs: Vital Signs - 24 hr 09/18/24 02:11 Temperature 97.6 F Pulse Rate 96 Respiratory Rate 16 Blood Pressure 135/85 Pulse Oximetry 100 Oxygen Delivery Method Room Air BMI result Body Mass Index 26.4 Appearance: Alert. Oriented X3. No acute distress. Eyes: Pupils equal, round and reactive to light. ENT: Pharynx normal. Neck: Normal inspection. Neck supple. CVS: Pulses normal. L breast: no mass felt, no axillary mass felt, no drainage from nipple, the nipple itself at the tip is excoriated and red, no rashes, lesions, lumps or blisters noted Respiratory: No respiratory distress. Abdomen: atraumatic Skin: Skin warm and dry. Normal skin color. Extremities: No lower extremity edema. Neuro: Oriented X 3. No motor deficit. No sensory deficit. Medical Decision Making Medical Decision Making MDM Narrative: 39 yo female with PMH of palpitations, anxiety, lyme disease, possible POTs, here with c/o burning of the L breast nipple - on exam no mass felt and she just had negative mammogram as well as prior negative breast biopsy. She did abrade the tip of the nipple with her nails it is red but no other signs of infection likely the cause of the burning will apply bacitracin and Rx mupirocin. Differential Diagnosis Differential Diagnoses: The differential diagnosis associated with the presentation includes abrasion, anxiety External Record Review External record reviewed: Office record and Outpatient record Prescription Management I considered prescription management with: Other Discharge Plan Discharge Clinical Impression: Abrasion Patient Disposition: Home, Self-Care Instructions: Abrasion (ED) Additional Instructions: I do not feel anything unusual on todays exam but continue your routine screenings. you do have an abrasion on the nipple itself which is likely causing the burning. please use the ointment for the next 5 days. return for redness spreading across the skin of the breast, yellow drainage, fevers Prescriptions: New mupirocin 2 % ointment 1 appl topical BID 5 Days Qty: 15 0RF No Action esomeprazole magnesium [Nexium] 40 mg capsule,delayed release(DR/EC) 40 mg PO DAILY Qty: 30 5RF xrlmrdetgh-beozcohpjjgyo-odvu [Fioricet] 50-300-40 mg capsule 1 cap PO Q4-6H PRN (Reason: pain) Qty: 14 0RF gabapentin 100 mg capsule 100 mg PO BID Qty: 30 0RF ketorolac 10 mg tablet 10 mg PO TID PRN (Reason: pain) 5 Days Qty: 15 0RF lorazepam 0.5 mg tablet 0.5 mg PO BEDTIME PRN (Reason: anxiety) Qty: 10 0RF benzonatate 100 mg capsule 100 mg PO BID PRN (Reason: cough) Qty: 10 0RF meclizine 25 mg tablet 25 mg PO DAILY PRN (Reason: dizziness) Qty: 7 0RF cyclobenzaprine 10 mg tablet 10 mg PO TID PRN (Reason: muscle spasm) Qty: 20 0RF ketoconazole 2 % cream 1 appl topical BID Qty: 30 0RF doxycycline hyclate 100 mg tablet 100 mg PO BID 7 Days Qty: 14 0RF doxycycline hyclate 100 mg capsule 100 mg PO BID 14 Days Qty: 28 0RF hydroxyzine HCl 50 mg tablet 50 mg PO BID PRN (Reason: anxiety) sumatriptan succinate 50 mg tablet 50 mg PO Q2-4H PRN diltiazem HCl 120 mg capsule,extended release 24hr 120 mg PO DAILY meloxicam 15 mg tablet 15 mg PO DAILY Print Language: Lithuanian
[2024-09-18] MEDS: Bacitracin Oint 0.9 GM PACKET 1 APPL TOPICAL (02:28)
[2024-09-18] MEDS: Ondansetron ODT 4 MG TAB.RAPDIS TRANSLINGU (02:32)
[2024-09-18 02:35] VITALS: BP 104/67; PULSE 75; RESP 14; TEMP 36.4; O2SAT 98
[2024-09-18 02:38] VITALS: BP 104/67; PULSE 75; RESP 14; TEMP 36.4; O2SAT 98
== END 2024-09-18 02:39 | disposition home or self-care (01) ==
PROVIDERS: Emergency Provider Emergency Medicine; PCP Nurse Practitioner Family
DX: S20.112A Abrasion of breast, left breast, initial encounter (principal); W50.4XXA Accidental scratch by another person, initial encounter; R00.2 Palpitations; Y93.9 Activity, unspecified; Y92.9 Unspecified place or not applicable; Y99.9 Unspecified external cause status
CPT/HCPCS: 99283; 99284

== ENCOUNTER 2024-10-03 15:22 | Emergency (ER) | payer OTHER, SELFPAY ==
[2024-10-03 16:37] VITALS: BP 145/78; PULSE 73; RESP 16; TEMP 36.6; O2SAT 100; BMI 26.6
--- NOTE | 2024-10-03 16:37 | ED_ITS ---
HPI - General Adult General Chief complaint: General Medical Stated complaint: bump under L left arm Time Seen by Provider: 10/03/24 21:12 History of Present Illness ED Provider: Ric SEVILLA narrative: The patient is a 39-year-old female who says that yesterday evening she was looking in the mirror and she thought that there was a lump in her left axilla. She has been worrying that this lump could represent something medically significant and came to the emergency room for evaluation this evening. The lump is not significantly uncomfortable. She has had no fever, sweats, chills. No injuries. The patient says that she has a lot of problems with health anxiety and that is why she came to the emergency room. Related Data Home Medications ?Medication ?Instructions ?Recorded ?Confirmed hydroxyzine HCl 50 mg tablet 50 mg PO BID PRN anxiety 04/23/23 diltiazem HCl 120 mg 120 mg PO DAILY 08/02/23 capsule,extended release 24 hr meloxicam 15 mg tablet 15 mg PO DAILY 01/19/24 sumatriptan succinate 50 mg tablet 50 mg PO Q2-4H PRN 03/01/24 Previous Rx's ?Medication ?Instructions ?Recorded gabapentin 100 mg capsule 100 mg PO BID #30 caps 04/19/23 ketorolac 10 mg tablet 10 mg PO TID PRN pain 5 days #15 08/26/23 tabs lorazepam 0.5 mg tablet 0.5 mg PO BEDTIME PRN anxiety #10 10/17/23 tabs benzonatate 100 mg capsule 100 mg PO BID PRN cough #10 caps 12/29/23 lyhptxxopr-upfgkvwspuiqh-tzosugim 1 cap PO Q4-6H PRN pain #14 caps 01/07/24 50 mg-300 mg-40 mg capsule (Fioricet) meclizine 25 mg tablet 25 mg PO DAILY PRN dizziness #7 01/26/24 tabs cyclobenzaprine 10 mg tablet 10 mg PO TID PRN muscle spasm #20 02/11/24 tabs esomeprazole magnesium 40 mg 40 mg PO DAILY #30 caps 03/30/24 capsule,delayed release (Nexium) ketoconazole 2 % topical cream 1 appl topical BID #30 grams 05/30/24 doxycycline hyclate 100 mg tablet 100 mg PO BID 7 days #14 tabs 07/19/24 doxycycline hyclate 100 mg capsule 100 mg PO BID 14 days #28 caps 07/27/24 mupirocin 2 % topical ointment 1 appl topical BID 5 days #15 grams 09/18/24 Allergies Allergy/AdvReac Type Severity Reaction Status Date / Time No Known Allergies Allergy Unknown NOT Verified 10/03/24 16:37 APPLICABLE Review of Systems 2 Review of Systems: Yes all other systems are reviewed and are negative [facility] Past Medical History Medical History Lyme disease Heart palpitations Anxiety Cholecystectomy planned delivery delivered Surgical History S/P cholecystectomy Social History Social History Alcohol intake: current Alcohol intake frequency: other Patient Tobacco Use Status: Current everyday Tobacco user Tobacco use type: Smokeless Tobacco Substance Use Type: Marijuana Advance Directives: No Advance Directives Information Provided: No Do you have a plan to hurt others: No Plan Physical Exam ED Vital Signs: Vital Signs - 24 hr 10/03/24 16:37 10/03/24 21:06 10/03/24 21:26 Temperature 97.9 F 98.1 F 98.1 F Pulse Rate 73 64 64 Respiratory Rate 16 16 16 Blood Pressure 145/78 H 121/79 121/79 Pulse Oximetry 100 99 99 Oxygen Delivery Method Room Air Room Air Room Air BMI result Body Mass Index 26.6 Const Other: The patient is a 39-year-old female who was awake and alert and does not seem in distress or acutely ill in any way. HENMT Other: Face is symmetrical. Mucous membranes moist. The posterior pharynx is unremarkable. Eyes General: appearance normal, both eyes and all related structures Neck Other: Moving her neck easily. No cervical adenopathy. Resp Effort & Inspection: normal respiratory effort Auscultation: clear to auscultation bilaterally Cardio Rate: regular rate Rhythm: regular rhythm Heart sounds: S1 normal heart sound present and S2 normal heart sound present Skin Other: The skin is dry and unremarkable. No erythema. Neuro Other: The patient is awake and alert with normal mental status. Cranial nerves are grossly intact. She moves her extremities normally and appropriately. Extrem Other: Palpation of the right axilla did not reveal any obvious mass that I could appreciate. The area of concern seems to be some kind of prominence of what I suspect is muscular or connective tissue. I did not appreciate anything that I thought represented a lymph node or an abscess. Course Course Course Narrative: This is a rapid medical exam performed by Jose Hannon NP: Additional HPI, ROS, PE not included below will be deferred to primary provider. Patient is a 39-year-old female presenting with complaint of lump to left axilla which she noticed last night in the mirror. Reports that she has severe health anxiety. Plan: labs Medical Decision Making Medical Decision Making MDM Narrative: The patient is a 39-year-old female who comes to the emergency room because of concern about a possible lump in the left axilla. On my exam the area of concern seems to be some prominent muscular tissue or other connective tissue. I do not feel that the area of concern represents a lymph node or an abscess or other concerning process. The patient was reassured that that I had a low suspicion for any potentially dangerous process. I think it may be reasonable for her to follow up with her regular doctor in a few weeks for a recheck. Lab Data 10/03/24 17:56 10/03/24 17:56 Labs: Lab Results 10/03/24 Range/Units 17:56 WBC 7.8 (4.8-10.8) X10*3/uL RBC 4.19 L (4.20-5.50) X10*6/uL Hgb 13.0 (12.0-16.0) g/dl Hct 38.2 (37.0-47.0) % MCV 91.2 (80.0-98.0) fL MCH 31.0 (27.0-33.0) pg MCHC 34.0 (31.0-35.0) g/dl RDW 13.1 (11.0-16.0) % Plt Count 243 (160-400) X10*3/uL MPV 10.6 (9.4-12.3) fL Immature Gran % (Auto) 0.3 (0.0-0.4) % Neut % (Auto) 52.4 (45-73) % Lymph % (Auto) 37.8 (20-40) % [place] % (Auto) 7.4 (2-11) % Eos % (Auto) 1.7 (0-4) % Baso % (Auto) 0.4 (0-2) % Lymph # (Auto) 3.0 (1.2-4.9) X10*3/uL [place] # (Auto) 0.6 (0.1-1.2) X10*3/uL Eos # (Auto) 0.1 (0.0-0.4) X10*3/uL Baso # (Auto) 0.0 (0.0-0.2) X10*3/uL Abs Immat Gran (auto) 0.02 (0.00-0.03) X10*3/uL Absolute Neuts (auto) 4.1 (2.0-8.3) x10*3/uL Absolute Nucleated RBC 0.000 (0.0-0.012) X10*3/uL Nucleated RBC % (auto) 0.0 (0.0-0.2) /100WBC Sodium 143 (135-145) mmol/L Potassium 4.8 (3.3-5.1) mmol/L Chloride 109 H (96-108) mmol/L Carbon Dioxide 25 (22-29) mmol/L Anion Gap 14 (12-20) BUN 12 (9-16) mg/dL Creatinine 0.74 (0.5-1.4) mg/dL Estim Creat Clear Calc 103.7 Estimated GFR > 60 Random Glucose 95 (60-115) mg/dL Calcium 10.2 D (8.4-10.2) mg/dL Total Bilirubin 1.4 H (0.0-1.0) mg/dL AST 17 (5-31) U/L ALT 11 (0-31) U/L Alkaline Phosphatase 46 (39-117) U/L Total Protein 7.5 (6.5-8.0) g/dL Albumin 4.5 (3.5-5.0) g/dL Beta HCG, Quant < 2 mIU/mL Discharge Plan Discharge Clinical Impression: Left axillary fullness Patient Disposition: Home, Self-Care Additional Instructions: I think it is unlikely that what you are feeling in your left armpit is anything dangerous. I would recommend following up with your regular doctor in the next few weeks for a 2nd opinion. In the meantime keep an eye on it so you can us administrative law judge if you think it is changing in any way. If you develop a fever or other concerning symptoms please return to the emergency room. Prescriptions: No Action esomeprazole magnesium [Nexium] 40 mg capsule,delayed release(DR/EC) 40 mg PO DAILY Qty: 30 5RF orhuiqszdt-ojbdbfslavwan-hvxn [Fioricet] 50-300-40 mg capsule 1 cap PO Q4-6H PRN (Reason: pain) Qty: 14 0RF gabapentin 100 mg capsule 100 mg PO BID Qty: 30 0RF ketorolac 10 mg tablet 10 mg PO TID PRN (Reason: pain) 5 Days Qty: 15 0RF lorazepam 0.5 mg tablet 0.5 mg PO BEDTIME PRN (Reason: anxiety) Qty: 10 0RF benzonatate 100 mg capsule 100 mg PO BID PRN (Reason: cough) Qty: 10 0RF meclizine 25 mg tablet 25 mg PO DAILY PRN (Reason: dizziness) Qty: 7 0RF cyclobenzaprine 10 mg tablet 10 mg PO TID PRN (Reason: muscle spasm) Qty: 20 0RF ketoconazole 2 % cream 1 appl topical BID Qty: 30 0RF doxycycline hyclate 100 mg tablet 100 mg PO BID 7 Days Qty: 14 0RF doxycycline hyclate 100 mg capsule 100 mg PO BID 14 Days Qty: 28 0RF mupirocin 2 % ointment 1 appl topical BID 5 Days Qty: 15 0RF hydroxyzine HCl 50 mg tablet 50 mg PO BID PRN (Reason: anxiety) sumatriptan succinate 50 mg tablet 50 mg PO Q2-4H PRN diltiazem HCl 120 mg capsule,extended release 24hr 120 mg PO DAILY meloxicam 15 mg tablet 15 mg PO DAILY Referrals: Simi Noland NP [Primary Care Provider] - (Left axillary lump) Interventions: ED Discharge Assessment Last Done: 10/03/24 21:26 Discharge Date/Time: 10/03/24 21:28 Print Language: Malay
[2024-10-03 18:04] LABS: MANUAL DIFF FLAG NO
[2024-10-03 18:07] LABS: Basophils Percent Auto 0.4 % (0-2); Eosinophils Absolute Auto 0.1 X10*3/uL (0.0-0.4); Eosinophils Percent Auto 1.7 % (0-4); Hematocrit 38.2 % (37.0-47.0); Imm Gran Abs Auto 0.02 X10*3/uL (0.00-0.03); Imm Gran Pct Auto 0.3 % (0.0-0.4); Lymphocytes Percent Auto 37.8 % (20-40); Mean Corpuscular Volume 91.2 fL (80.0-98.0); Mean Platelet Volume 10.6 fL (9.4-12.3); Monocytes Absolute Auto 0.6 X10*3/uL (0.1-1.2); Monocytes Percent Auto 7.4 % (2-11); Neutrophils Absolute Auto 4.1 x10*3/uL (2.0-8.3); Neutrophils Percent Auto 52.4 % (45-73); Platelet Count 243 X10*3/uL (160-400); Red Blood Count 4.19 X10*6/uL (4.20-5.50); Red Cell Distribution Width 13.1 % (11.0-16.0); White Blood Count 7.8 X10*3/uL (4.8-10.8)
[2024-10-03 18:33] LABS: Alanine Aminotransferase 11 U/L (0-31); Albumin Level 4.5 g/dL (3.5-5.0); Alkaline Phosphatase 46 U/L (39-117); Anion Gap 14 (12-20); Aspartate Amino Transferase 17 U/L (5-31); Bilirubin Total 1.4 mg/dL (0.0-1.0); Blood Urea Nitrogen 12 mg/dL (9-16); Calcium 10.2 mg/dL (8.4-10.2); Carbon Dioxide 25 mmol/L (22-29); Chloride 109 mmol/L (96-108); Creatinine Clr Calc Pharmacy 103.7; Estimated Glomerular Filt Rate > 60; Glucose Random 95 mg/dL (60-115); HCG Quantitative < 2 mIU/mL; Potassium 4.8 mmol/L (3.3-5.1); Sodium 143 mmol/L (135-145); Total Protein 7.5 g/dL (6.5-8.0)
[2024-10-03 21:06] VITALS: BP 121/79; PULSE 64; RESP 16; TEMP 36.7; O2SAT 99
[2024-10-03 21:26] VITALS: BP 121/79; PULSE 64; RESP 16; TEMP 36.7; O2SAT 99
== END 2024-10-03 21:28 | disposition home or self-care (01) ==
PROVIDERS: Registered Nurse Emergency; Emergency Provider Emergency Medicine; PCP Nurse Practitioner Family
DX: R22.9 Localized swelling, mass and lump, unspecified (principal)
CPT/HCPCS: 36415; 80053; 84702; 85025; 99283

== ENCOUNTER 2024-10-04 11:16 | Emergency (ER) | payer OTHER, SELFPAY ==
--- NOTE | ~2024-10-04 | US_ITS ---
EXAMINATION: US ABDOMEN LIMITED CLINICAL INFORMATION: Left axillary, left arm mass COMPARISON: None. TECHNIQUE: Imaging of the abdomen was performed with a high-frequency linear transducer using graded compression. FINDINGS: Normal-appearing soft tissues in the left axilla, the area of clinical concern. No evidence for solid or cystic mass or lymph node. Comparison is to the right axilla shows no abnormality as well. US/US extremity nonvascular paez IMPRESSION: Unremarkable study. Electronically signed by: Henrry Morgan MD 10/04/2024 02:27 PM [facility]
[2024-10-04 12:05] VITALS: BP 119/75; PULSE 82; RESP 18; TEMP 36.6; O2SAT 100; BMI 26.6
--- NOTE | 2024-10-04 12:14 | ED_ITS ---
HPI - General Adult General Chief complaint: Skin/Abscess/Foreign Body Stated complaint: Lump Under L Arm Time Seen by Provider: 10/04/24 14:58 Source: patient Mode of arrival: ambulatory Limitations: no limitations History of Present Illness ED Provider: homero SEVILLA narrative: 39 yold female presents to the Ed for evaluation of left axilla lump. patient sent be pCP for ultrasound. Related Data Home Medications ?Medication ?Instructions ?Recorded ?Confirmed hydroxyzine HCl 50 mg tablet 50 mg PO BID PRN anxiety 04/23/23 diltiazem HCl 120 mg 120 mg PO DAILY 08/02/23 capsule,extended release 24 hr meloxicam 15 mg tablet 15 mg PO DAILY 01/19/24 sumatriptan succinate 50 mg tablet 50 mg PO Q2-4H PRN 03/01/24 Previous Rx's ?Medication ?Instructions ?Recorded gabapentin 100 mg capsule 100 mg PO BID #30 caps 04/19/23 ketorolac 10 mg tablet 10 mg PO TID PRN pain 5 days #15 08/26/23 tabs lorazepam 0.5 mg tablet 0.5 mg PO BEDTIME PRN anxiety #10 10/17/23 tabs benzonatate 100 mg capsule 100 mg PO BID PRN cough #10 caps 12/29/23 jucztbydxi-plpoznskatkan-ueadwpfh 1 cap PO Q4-6H PRN pain #14 caps 01/07/24 50 mg-300 mg-40 mg capsule (Fioricet) meclizine 25 mg tablet 25 mg PO DAILY PRN dizziness #7 01/26/24 tabs cyclobenzaprine 10 mg tablet 10 mg PO TID PRN muscle spasm #20 02/11/24 tabs esomeprazole magnesium 40 mg 40 mg PO DAILY #30 caps 03/30/24 capsule,delayed release (Nexium) ketoconazole 2 % topical cream 1 appl topical BID #30 grams 05/30/24 doxycycline hyclate 100 mg tablet 100 mg PO BID 7 days #14 tabs 07/19/24 doxycycline hyclate 100 mg capsule 100 mg PO BID 14 days #28 caps 07/27/24 mupirocin 2 % topical ointment 1 appl topical BID 5 days #15 grams 09/18/24 Allergies Allergy/AdvReac Type Severity Reaction Status Date / Time No Known Allergies Allergy Unknown NOT Verified 10/04/24 12:09 APPLICABLE Review of Systems 2 Review of Systems: left axillary madd Yes all other systems are reviewed and are negative [facility] Past Medical History Medical History Lyme disease Heart palpitations Anxiety Cholecystectomy planned delivery delivered Surgical History S/P cholecystectomy Social History Social History Alcohol intake: current Alcohol intake frequency: other Patient Tobacco Use Status: Current everyday Tobacco user Tobacco use type: Smokeless Tobacco Substance Use Type: Marijuana Advance Directives: No Advance Directives Information Provided: Yes Physical Exam ED Vital Signs: Vital Signs - 24 hr 10/04/24 15:26 10/04/24 15:36 Temperature 98.1 F 98.1 F Pulse Rate 73 73 Respiratory Rate 12 12 Blood Pressure 108/68 108/68 Pulse Oximetry 98 98 Oxygen Delivery Method Room Air Room Air BMI result Body Mass Index 26.6 Const General: cooperative, healthy appearing, comfortable, no acute distress and well developed Orientation/consciousness: patient oriented x3 HENMT Head: Yes normal to inspection, Yes No palpable skull fracture present, Yes normocephalic and Yes atraumatic Eyes General: appearance normal, both eyes and all related structures Neck Neck: Yes normal visual inspection, Yes full ROM, Yes no lymphadenopathy, Yes no meningeal signs, Yes trachea midline, Yes supple, No anterior neck swelling and No tender Chest Chest palpation & inspection: normal inspection of the chest and normal palpation of entire chest wall Breast/axilla inspection: normal inspection of the breasts and normal inspection of the axillae Chest/axillae images: 2 1. mild indentation/possible mass. negative erythema, swelling, mass, pus dicharge, eccymoosis, deformity, crepitus, or stffness. rest of extremity is normal. motor, neuro, and vascular exam is intact. Resp Effort & Inspection: normal respiratory effort and able to speak in complete sentences Auscultation: clear to auscultation bilaterally Cardio Jugular venous distension: no JVD Heart sounds: S1 normal heart sound present and S2 normal heart sound present GI Inspection: Yes normal to inspection Palpation (GI): Soft to palpation, not firm, nontender, no guarding and not rigid General: Yes no CVA tenderness Back/Spine/Pelvis Back: no CVA tenderness and No back tenderness Skin General skin exam: no rashes or lesions noted, elasticity normal and turgor normal Neuro General: patient oriented x3, gait normal, tone normal, moves all extremities, Normal light touch and pain sensation, no meningeal signs, no focal motor deficits and CN's II-XI intact bilaterally Extrem General: Yes normal to inspection, Yes full ROM and Yes capillary refill normal Psych Appearance: grossly normal, well kempt and not disheveled Course Course Course Narrative: RME: [employer]One by LIZ Araiza. Patient is sent by primary care provider ultrasound of left upper extremity. Patient has bump in left armpit and was seen yesterday and she spoke to her primary care provider today 1 her to come back to get an ultrasound. Patient denies any arm swelling, redness, recent trauma, any control use. Left upper extremity negative for signs of DVT. Palpable mass in left axilla left arm area. Negative for erythema. Will order nonvascular ultrasound. Not suspecting DVT. Medical Decision Making Medical Decision Making [facility] Narrative: [age] year female presents to ED for evaluation of left axillary mass that has been present for couple of days. Masses non erythematous and not fluctuant. Patient has had recent normal breast mammogram that was normal. not susepcting abscess, cellulitits, DVT, compartment syndrome, arterial occlusion, septic joint, osteomylitits, fracture, dislocation, or necrotizing fascitits, US negative of abscess or mass. Differential Diagnosis Differential Diagnoses: The differential diagnosis associated with the presentation includes (absess, lymphadonapthy.) Admission/Observation Consideration of admission/observation: Escalation of care including admission/observation considered Independent Interpretation I performed an independent interpretation of an: Ultrasound Radiology Impression Discussion of test interpretation with radiology: I have reviewed the radiologist's reading. Independent Historian Clinical information obtained from an independent historian. History obtained from or confirmed by: Other (patient) External Record Review External record reviewed: Other (prior visits) Prescription Management I considered prescription management with: Pain Medication Discharge Plan Discharge Clinical Impression: Normal exam Patient Disposition: Home, Self-Care Instructions: Normal Exam (ED) Additional Instructions: Ultrasound was negative for any mass in left axillary. Recommend follow-up with your primary care provider. Return to the ED for any swelling upper extremity, significant swelling in left axillary, mass on palpation, redness, severe pain, fever, chills, chest pain, shortness of breath, bluish black discoloration of left upper extremity, breast pain, breast mass, nipple discharge, swelling, arm swelling, arm redness, or any other concerning symptoms. FINDINGS: Normal-appearing soft tissues in the left axilla, the area of clinical concern. No evidence for solid or cystic mass or lymph node. Comparison is to the right axilla shows no abnormality as well. US/US extremity nonvascular paez IMPRESSION: Unremarkable study. Electronically signed by: Henrry Morgan MD 10/04/2024 02:27 PM [facility] Prescriptions: No Action esomeprazole magnesium [Nexium] 40 mg capsule,delayed release(DR/EC) 40 mg PO DAILY Qty: 30 5RF jmjokleiqt-oejnkuabjannr-uwga [Fioricet] 50-300-40 mg capsule 1 cap PO Q4-6H PRN (Reason: pain) Qty: 14 0RF gabapentin 100 mg capsule 100 mg PO BID Qty: 30 0RF ketorolac 10 mg tablet 10 mg PO TID PRN (Reason: pain) 5 Days Qty: 15 0RF lorazepam 0.5 mg tablet 0.5 mg PO BEDTIME PRN (Reason: anxiety) Qty: 10 0RF benzonatate 100 mg capsule 100 mg PO BID PRN (Reason: cough) Qty: 10 0RF meclizine 25 mg tablet 25 mg PO DAILY PRN (Reason: dizziness) Qty: 7 0RF cyclobenzaprine 10 mg tablet 10 mg PO TID PRN (Reason: muscle spasm) Qty: 20 0RF ketoconazole 2 % cream 1 appl topical BID Qty: 30 0RF doxycycline hyclate 100 mg tablet 100 mg PO BID 7 Days Qty: 14 0RF doxycycline hyclate 100 mg capsule 100 mg PO BID 14 Days Qty: 28 0RF mupirocin 2 % ointment 1 appl topical BID 5 Days Qty: 15 0RF hydroxyzine HCl 50 mg tablet 50 mg PO BID PRN (Reason: anxiety) sumatriptan succinate 50 mg tablet 50 mg PO Q2-4H PRN diltiazem HCl 120 mg capsule,extended release 24hr 120 mg PO DAILY meloxicam 15 mg tablet 15 mg PO DAILY Interventions: ED Discharge Assessment Last Done: 10/04/24 15:36 Discharge Date/Time: 10/04/24 15:36 Print Language: Citizen [place]
[2024-10-04 15:26] VITALS: BP 108/68; PULSE 73; RESP 12; TEMP 36.7; O2SAT 98
[2024-10-04 15:36] VITALS: BP 108/68; PULSE 73; RESP 12; TEMP 36.7; O2SAT 98
== END 2024-10-04 15:36 | disposition home or self-care (01) ==
PROVIDERS: Emergency Provider Student in an Organized Health Care Education/Training Program; PCP Nurse Practitioner Family
DX: R22.32 Localized swelling, mass and lump, left upper limb (principal); Z79.899 Other long term (current) drug therapy
CPT/HCPCS: 76882; 99282; 99284

== ENCOUNTER 2025-01-21 08:37 | Emergency (ER) | payer OTHER, SELFPAY ==
[2025-01-21 08:42] VITALS: BP 139/78; PULSE 92; RESP 16; TEMP 36.6; O2SAT 100; BMI 27.5
--- NOTE | 2025-01-21 09:00 | ED_ITS ---
HPI - Neuro Symptoms/Deficit General Chief Complaint: Neuro Symptoms/Deficit Stated Complaint: odd vision Time Seen by Provider: 01/21/25 08:59 Source: patient and RN notes reviewed Mode of arrival: ambulatory Limitations: no limitations History of Present Illness ED Provider: Brisa Clayton PA-C HPI Narrative: This is a 39-year-old female, with a history of anxiety, who presents emergency department for evaluation of bilateral visual changes. Patient states that since Wednesday she awoke and turned on her television and started watching TV and then developed her symptoms. She states that she has noticed bright spots in her vision, which worsens when the lights her on however when the lights are dimmed, this improves. She states that this visual change constant, and never fully resolved. She states that her symptoms have not improved however have not worsened since Wednesday. She states that she went to [facility] where she had a full eye exam, and states that there are no abnormality seen at that time. She states that he eye doctor that perform this examination stated that there was ?nothing wrong with your eyes, but it could be something else . She states that she has been in her usual state of health. No recent fevers or chills. She does admit that she has had intermittent headaches however states that she has not had a severe headache associated with this vision changes. No eye pain. She does not wear contact lenses. Denies any dizziness, lightheadedness, chest pain or shortness of breath. No other complaints or concerns at this time. Onset (ago): day(s) History of same: No Severity: mild Relieving factors: none Exacerbating factors: other (Light) Context: sudden onset On Anticoagulants: No Associated symptoms: denies other symptoms Treatments Prior to Arrival: none Related Data Home Medications ?Medication ?Instructions ?Recorded ?Confirmed hydroxyzine HCl 50 mg tablet 50 mg PO BID PRN anxiety 04/23/23 diltiazem HCl 120 mg 120 mg PO DAILY 08/02/23 capsule,extended release 24 hr meloxicam 15 mg tablet 15 mg PO DAILY 01/19/24 sumatriptan succinate 50 mg tablet 50 mg PO Q2-4H PRN 03/01/24 Previous Rx's ?Medication ?Instructions ?Recorded gabapentin 100 mg capsule 100 mg PO BID #30 caps 04/19/23 ketorolac 10 mg tablet 10 mg PO TID PRN pain 5 days #15 08/26/23 tabs lorazepam 0.5 mg tablet 0.5 mg PO BEDTIME PRN anxiety #10 10/17/23 tabs benzonatate 100 mg capsule 100 mg PO BID PRN cough #10 caps 12/29/23 gmafpnhqsx-caibkvlvjewod-fdexfnrh 1 cap PO Q4-6H PRN pain #14 caps 01/07/24 50 mg-300 mg-40 mg capsule (Fioricet) meclizine 25 mg tablet 25 mg PO DAILY PRN dizziness #7 01/26/24 tabs cyclobenzaprine 10 mg tablet 10 mg PO TID PRN muscle spasm #20 02/11/24 tabs esomeprazole magnesium 40 mg 40 mg PO DAILY #30 caps 03/30/24 capsule,delayed release (Nexium) ketoconazole 2 % topical cream 1 appl topical BID #30 grams 05/30/24 doxycycline hyclate 100 mg tablet 100 mg PO BID 7 days #14 tabs 07/19/24 doxycycline hyclate 100 mg capsule 100 mg PO BID 14 days #28 caps 07/27/24 mupirocin 2 % topical ointment 1 appl topical BID 5 days #15 grams 09/18/24 Allergies Allergy/AdvReac Type Severity Reaction Status Date / Time No Known Allergies Allergy Unknown NOT Verified 01/21/25 08:42 APPLICABLE Review of Systems Review of Systems: Yes all other systems are reviewed and are negative Constitutional: Constitutional: Reports as per [facility] Past Medical History Medical History Lyme disease Heart palpitations Anxiety Cholecystectomy planned delivery delivered Surgical History S/P cholecystectomy Social History Social History Alcohol intake: current Alcohol intake frequency: other Patient Tobacco Use Status: Current everyday Tobacco user Tobacco use type: Smokeless Tobacco Substance Use Type: Marijuana Advance Directives: No Advance Directives Information Provided: Yes Physical Exam Vital Signs: Vital Signs: Last Vital Signs Temp 97.9 F 01/21/25 08:42 Pulse 92 01/21/25 08:42 Resp 16 01/21/25 08:42 BP 139/78 01/21/25 08:42 Pulse Ox 100 01/21/25 08:42 O2 Del Method Room Air 01/21/25 08:42 BMI result Body Mass Index 27.5 Const: General: cooperative, comfortable and no acute distress Orientation/consciousness: patient oriented x3 Limitations: no limitations HEENT: Head: Yes normal to inspection, Yes normocephalic and Yes atraumatic Ears: hearing grossly normal bilaterally General nose exam: Normal external nose present Face and sinus: Yes normal facial exam Mouth: Normal oral and palatal mucosa present, oropharynx normal and moist mucous membranes Throat: Yes posterior oropharynx normal Eyes: Other: Fluorescein stain was performed, no fluorescein uptake. No corneal abrasion noted. Negative Carlos Enrique sign. Intra-ocular pressure is 16 mmHg bilaterally. General: appearance normal, both eyes and all related structures P eriorbital: periorbital findings normal Eyelids: Yes eyelids normal Conjunctivae: conjunctivae normal Sclerae: sclerae normal Corneas: corneas normal Pupils: Equal, round and reactive pupils present EOM: EOMs intact bilaterally Direct Ophthalmoscopy: normal light reflex, no photophobia, no papilledema, fundi normal bilaterally and anterior chamber normal Neck: Neck: Yes normal visual inspection, Yes full ROM and Yes no lymphadenopathy Lymphatic: no lymphadenopathy noted Chest: Chest palpation & inspection: normal inspection of the chest Resp: Effort & Inspection: normal respiratory effort and able to speak in complete sentences Auscultation: clear to auscultation bilaterally, no crackles, no rales, no rhonchi and no wheezes Cardio: Rate: regular rate Rhythm: regular rhythm Heart sounds: S1 normal heart sound present and S2 normal heart sound present GI: Inspection: Yes normal to inspection Skin: General skin exam: no rashes or lesions noted Trauma: no lacerations or abrasions Wounds: no wounds Neuro: General: patient oriented x3 and moves all extremities Cranial nerves: Yes CN's II-XII intact bilaterally, Yes Equal, round and reactive pupils present, Yes Bilaterally intact EOM present, Yes Nystagmus not present, Yes Normal facial strength present and Yes Ability to bilaterally rotate head present Cognition (Neuro): normal cognition Gait exam (Neuro): Normal gait present Motor exam (neuro): 5/5 motor strength present throughout and Pronator motor function not present Romberg Test: Negative Extrem: General: Yes normal to inspection Right upper extremity: normal to inspection Left upper extremity: normal to inspection Right lower extremity: normal to inspection Left lower extremity: normal to inspection Course Reevaluation(s) Reevaluation #1: Intra-ocular pressure is 6 mmHg bilaterally. Fluorescein stain performed with no acute findings. Discussed overall workup with patient, and given her visual acuity is intact, this is likely atypical migraine in nature. Advised follow-up with PCP, given strict return precautions. She understands agrees with plan. Patient stable for discharge. Time: 10:35 Medications Administered Discontinued Medications Generic Name Dose Route Start Last Admin Trade Name Gerson PRN Reason Stop Dose Admin Fluorescein Sodium 1 strip 01/21/25 09:23 01/21/25 10:26 Fluorescein Sodium Strip EYE-BOTH 01/21/25 09:24 1 strip ONCE ONE Administration Tetracaine HCl 1 drop 01/21/25 09:23 01/21/25 10:27 Tetracaine Hcl/Pf 0.5% Oph [place] 4 Ml Drops EYE-BOTH 01/21/25 09:24 1 drop ONCE ONE Administration Medical Decision Making Medical Decision Making MDM Narrative: This is a 39-year-old female, with a history of anxiety, who presents emergency department with complaints of vision changes x3 days. On arrival, vital signs within normal limits. She is speaking in full sentences under no acute d istress. She is alert and oriented x4, she was neurologically intact with no focal deficits on examination. Patient has had flashing lights in her bilateral eyes since Wednesday. Differential diagnoses include atypical migraine, corneal abrasion, retinal detachment, optic neuritis, central retinal vein occlusion. Given that symptoms are bilateral, CRVO, retinal detachment, corneal abrasion or unlikely. This is likely related to atypical migraine or a Patient does not have any loss of vision or blurred vision. Only flashes of light. Discussed case with my attending physician, Dr. Larios. Given symptoms are bilateral, this is likely a atypical migraine with aura. Plan: Will perform eye exam, eye pressures, visual acuity Differential Diagnosis Differential Diagnoses: The differential diagnosis associated with the presentation includes See above Discharge Plan Discharge Clinical Impression: Visual changes, Atypical migraine Patient Disposition: Home, Self-Care Instructions: Migraine Headache (ED) Additional Instructions: You were seen in the emergency department due to bright spots in your vision. Your exam today was reassuring. Please follow-up with your primary care physician regarding this visit. If any new or worsening symptoms occur including but not limited to worsening vision changes, severe headache, dizziness, loss of vision, weakness, numbness, tingling, please seek emergent care. Prescriptions: No Action esomeprazole magnesium [Nexium] 40 mg capsule,delayed release(DR/EC) 40 mg PO DAILY Qty: 30 5RF dausphgzip-jdmiusdddpvzv-pmmz [Fioricet] 50-300-40 mg capsule 1 cap PO Q4-6H PRN (Reason: pain) Qty: 14 0RF gabapentin 100 mg capsule 100 mg PO BID Qty: 30 0RF ketorolac 10 mg tablet 10 mg PO TID PRN (Reason: pain) 5 Days Qty: 15 0RF lorazepam 0.5 mg tablet 0.5 mg PO BEDTIME PRN (Reason: anxiety) Qty: 10 0RF benzonatate 100 mg capsule 100 mg PO BID PRN (Reason: cough) Qty: 10 0RF meclizine 25 mg tablet 25 mg PO DAILY PRN (Reason: dizziness) Qty: 7 0RF cyclobenzaprine 10 mg tablet 10 mg PO TID PRN (Reason: muscle spasm) Qty: 20 0RF ketoconazole 2 % cream 1 appl topical BID Qty: 30 0RF doxycycline hyclate 100 mg tablet 100 mg PO BID 7 Days Qty: 14 0RF doxycycline hyclate 100 mg capsule 100 mg PO BID 14 Days Qty: 28 0RF mupirocin 2 % ointment 1 appl topical BID 5 Days Qty: 15 0RF hydroxyzine HCl 50 mg tablet 50 mg PO BID PRN (Reason: anxiety) sumatriptan succinate 50 mg tablet 50 mg PO Q2-4H PRN diltiazem HCl 120 mg capsule,extended release 24hr 120 mg PO DAILY meloxicam 15 mg tablet 15 mg PO DAILY Print Language: Setsw[place]
[2025-01-21] MEDS: Fluorescein Sodium STRIP 1 STRIP EYE-BOTH (10:26)
[2025-01-21] MEDS: Tetracaine HCl/PF 0.5% Oph Sol 4 ML DROPS 1 DROP EYE-BOTH (10:27)
[2025-01-21 10:37] VITALS: BP 139/78; PULSE 92; RESP 16; TEMP 36.6; O2SAT 100
== END 2025-01-21 10:51 | disposition home or self-care (01) ==
PROVIDERS: Emergency Provider Emergency Medicine; PCP Nurse Practitioner Family
DX: G43.909 Migraine, unspecified, not intractable, without status migrainosus (principal); Z79.899 Other long term (current) drug therapy
CPT/HCPCS: 99282; 99283

== ENCOUNTER 2025-01-25 15:17 | Emergency (ER) | payer OTHER, SELFPAY ==
--- NOTE | ~2025-01-25 | CT_ITS ---
CLINICAL HISTORY: headache, vision changes CT of the head without contrast. Comparison 07/19/2024. Findings: No acute hemorrhage or infarct is seen. No masses are identified and there is no hydrocephalus. There is no mass-effect. Impression: No acute intracranial abnormality is identified. This document has been electronically signed by: Darnell Garces MD on 01/25/2025 18:49:29
[2025-01-25 16:09] VITALS: BP 121/77; PULSE 83; RESP 20; TEMP 37; O2SAT 100; BMI 26.2
--- NOTE | 2025-01-25 16:10 | ED_ITS ---
HPI - General Adult General Chief complaint: Headache Stated complaint: headaches,visual changes Time Seen by Provider: 01/25/25 19:35 Source: patient and old records reviewed Mode of arrival: ambulatory Limitations: no limitations History of Present Illness ED Provider: RAJWINDER SEVILLA narrative: 39 yo female with PMH of health anxiety, kidney stones, migraines here with c/o seeing bright white flashing in R eye then gets a headache afterwards. No vision loss and the spots are transient. She denies numbness, weakness. She was nervous due to being unable to see neurologist. At this time no fevers, trauma or any other symptoms. She states when she gets the spots she gets the headache MD complaint: headaches Onset (ago): day(s) (3) Location: head Radiation: non-radiation Severity: moderate Quality: aching Pain Consistency: constant Relieving factors: none Exacerbating factors: other (bright lights are her trigger) Associated symptoms: denies other symptoms Treatments prior to arrival: none Related Data Home Medications ?Medication ?Instructions ?Recorded ?Confirmed hydroxyzine HCl 50 mg tablet 50 mg PO BID PRN anxiety 04/23/23 diltiazem HCl 120 mg 120 mg PO DAILY 08/02/23 capsule,extended release 24 hr meloxicam 15 mg tablet 15 mg PO DAILY 01/19/24 sumatriptan succinate 50 mg tablet 50 mg PO Q2-4H PRN 03/01/24 Previous Rx's ?Medication ?Instructions ?Recorded gabapentin 100 mg capsule 100 mg PO BID #30 caps 04/19/23 ketorolac 10 mg tablet 10 mg PO TID PRN pain 5 days #15 08/26/23 tabs lorazepam 0.5 mg tablet 0.5 mg PO BEDTIME PRN anxiety #10 10/17/23 tabs benzonatate 100 mg capsule 100 mg PO BID PRN cough #10 caps 12/29/23 nllenoboxe-fwhdvzbemrtvu-lhhuzjfm 1 cap PO Q4-6H PRN pain #14 caps 01/07/24 50 mg-300 mg-40 mg capsule (Fioricet) meclizine 25 mg tablet 25 mg PO DAILY PRN dizziness #7 01/26/24 tabs cyclobenzaprine 10 mg tablet 10 mg PO TID PRN muscle spasm #20 02/11/24 tabs esomeprazole magnesium 40 mg 40 mg PO DAILY #30 caps 03/30/24 capsule,delayed release (Nexium) ketoconazole 2 % topical cream 1 appl topical BID #30 grams 05/30/24 doxycycline hyclate 100 mg tablet 100 mg PO BID 7 days #14 tabs 07/19/24 doxycycline hyclate 100 mg capsule 100 mg PO BID 14 days #28 caps 07/27/24 mupirocin 2 % topical ointment 1 appl topical BID 5 days #15 grams 09/18/24 cyclobenzaprine 10 mg tablet 10 mg PO TID PRN muscle spasm #14 01/25/25 tabs ondansetron 4 mg disintegrating 4 mg PO Q8H PRN nausea and 01/25/25 tablet vomiting #20 tabs sumatriptan succinate 50 mg tablet See Rx Instructions PO .COMPLEX 01/25/25 #14 tabs Allergies Allergy/AdvReac Type Severity Reaction Status Date / Time No Known Allergies Allergy Unknown NOT Verified 01/25/25 16:11 APPLICABLE Review of Systems Review of Systems: Constitutional : No Fever, No Chills, No Fatigue ENT/Mouth : No sore throat, No Rhinorrhea Eyes: No Eye Pain, No Swelling, No Redness Cardiovascular : No Chest Pain, No SOB, No Dyspnea on Exertion Respiratory : No Cough, No Sputum Gastrointestinal : No Nausea, No Vomiting, No Diarrhea, No abdominal Pain Genitourinary : No Dysuria, No Urinary Frequency, No Hematuria, Musculoskeletal : No joint pain, No Myalgias, No Joint Swelling Skin : No Skin Lesions, No rash Neuro : No Weakness, No Numbness, No Dizziness, positive Headache Psych : No Anxiety/Panic, No Depression Heme/Lymph: No Bruising, No Bleeding,No Lymphadenopathy Endocrine : No Polyuria, No Polydipsia All other systems reviewed and are negative [facility] Past Medical History Attestation statement: The following information was validated with the patient. Source: old records reviewed Medical History Lyme disease Heart palpitations Anxiety Cholecystectomy planned delivery delivered Surgical History S/P cholecystectomy Social History Social History Alcohol intake: current Alcohol intake frequency: other Patient Tobacco Use Status: Current everyday Tobacco user Tobacco use type: Smokeless Tobacco Substance Use Type: Marijuana Physical Exam ED Vital Signs: Vital Signs - 24 hr 01/25/25 16:09 Temperature 98.6 F Pulse Rate 83 Respiratory Rate 20 Blood Pressure 121/77 Pulse Oximetry 100 Oxygen Delivery Method Room Air BMI result Body Mass Index 26.2 Appearance: Alert. Oriented X3. No acute distress. Eyes: Pupils equal, round and reactive to light. ENT: Pharynx normal. Neck: Normal inspection. Neck supple. CVS: Normal heart rate and rhythm. Pulses normal. Respiratory: No respiratory distress. Breath sounds normal. Abdomen: Soft and non-tender. Skin: Skin warm and dry. Normal skin color. Normal skin turgor. Extremities: No lower extremity edema. No calf ttp Neuro: Oriented X 3. No motor deficit. No sensory deficit. CN2-12 intact. normal gait Course Course Course Narrative: This is an RME: Additional HPI, ROS, PE not included below will be deferred to primary provider. RME assessment and note performed by: Brisa Clayton PA-C This is a [id number]-female who presents to the ER with complaints of headaches and visual changes. She was seen 4 days ago for same. Sxs have been constant, not worsening. Went to PCP who recommended head CT. Neuro intact. Plan: head ct, further ER eval needed. Medical Decision Making Medical Decision Making MDM Narrative: 39 yo female with PMH of health anxiety, kidney stones, migraines here with c/o bright white spots and flashes but no loss of vision then resulting headache this has been gradual she is not having fevers she is not toxic and looks well. NIH 0 given her symptoms I do not suspect SAH or [employer] infection. She likely is having auras and ocular migraine. Will provide supportive caremig Differential Diagnosis Differential Diagnoses: The differential diagnosis associated with the presentation includes migraine, tension headache Admission/Observation Consideration of admission/observation: Escalation of care including admission/observation considered stable for DC as outpatient Independent Interpretation I performed an independent interpretation of an: CT Scan (normal ) Radiology Impression Discussion of test interpretation with radiology: I have reviewed the radiologist's reading. External Record Review External record reviewed: Outpatient record Prescription Management I considered prescription management with: Pain Medication and Other Discharge Plan Discharge Clinical Impression: Ocular migraine Patient Disposition: Home, Self-Care Instructions: Ocular Migraine (ED) Additional Instructions: CT head normal follow up with your neurologist as planned return for any worsening symptoms or concerns avoid triggers rest and stay hydrated Prescriptions: New sumatriptan succinate 50 mg tablet See Rx Instructions .ROUTE .COMPLEX Qty: 14 0RF Rx Instructions: take 1 tab at onset of headache; if no relief may repeat 1 tab after at least 2 hrs; max = 4 tabs/24 hr cyclobenzaprine 10 mg tablet 10 mg PO TID PRN (Reason: muscle spasm) Qty: 14 0RF ondansetron 4 mg tablet,disintegrating 4 mg PO Q8H PRN (Reason: nausea and vomiting) Qty: 20 0RF No Action esomeprazole magnesium [Nexium] 40 mg capsule,delayed release(DR/EC) 40 mg PO DAILY Qty: 30 5RF ivzknohqou-bmdeesfxjucew-wgmy [Fioricet] 50-300-40 mg capsule 1 cap PO Q4-6H PRN (Reason: pain) Qty: 14 0RF gabapentin 100 mg capsule 100 mg PO BID Qty: 30 0RF ketorolac 10 mg tablet 10 mg PO TID PRN (Reason: pain) 5 Days Qty: 15 0RF lorazepam 0.5 mg tablet 0.5 mg PO BEDTIME PRN (Reason: anxiety) Qty: 10 0RF benzonatate 100 mg capsule 100 mg PO BID PRN (Reason: cough) Qty: 10 0RF meclizine 25 mg tablet 25 mg PO DAILY PRN (Reason: dizziness) Qty: 7 0RF cyclobenzaprine 10 mg tablet 10 mg PO TID PRN (Reason: muscle spasm) Qty: 20 0RF ketoconazole 2 % cream 1 appl topical BID Qty: 30 0RF doxycycline hyclate 100 mg tablet 100 mg PO BID 7 Days Qty: 14 0RF doxycycline hyclate 100 mg capsule 100 mg PO BID 14 Days Qty: 28 0RF mupirocin 2 % ointment 1 appl topical BID 5 Days Qty: 15 0RF hydroxyzine HCl 50 mg tablet 50 mg PO BID PRN (Reason: anxiety) sumatriptan succinate 50 mg tablet 50 mg PO Q2-4H PRN diltiazem HCl 120 mg capsule,extended release 24hr 120 mg PO DAILY meloxicam 15 mg tablet 15 mg PO DAILY Print Language: Zambian
[2025-01-25 19:43] VITALS: BP 122/72; PULSE 75; RESP 16; TEMP 36.7; O2SAT 97
[2025-01-25] MEDS: Acetaminophen 325 MG TABLET 650 MG PO (19:51)
[2025-01-25] MEDS: Cyclobenzaprine HCl 10 MG TABLET PO (19:51)
[2025-01-25 20:01] VITALS: BP 122/72; PULSE 75; RESP 16; TEMP 36.7; O2SAT 97
== END 2025-01-25 20:01 | disposition home or self-care (01) ==
PROVIDERS: Emergency Provider Emergency Medicine; PCP Nurse Practitioner Family
DX: G43.B0 Ophthalmoplegic migraine, not intractable (principal); Z79.899 Other long term (current) drug therapy; F17.210 Nicotine dependence, cigarettes, uncomplicated
CPT/HCPCS: 70450; 99283; 99284

== ENCOUNTER → 2025-01-25 16:12 | Outpatient (BNV) | payer OTHER, SELFPAY | PROVIDERS: PCP Nurse Practitioner Family; Visit Provider Radiology Diagnostic Radiology | DX: R51.9 Headache, unspecified (principal); H53.8 Other visual disturbances | CPT/HCPCS: 70450 ==

== ENCOUNTER 2025-02-19 08:52 | Emergency (ER) | payer OTHER, SELFPAY ==
[2025-02-19 09:17] VITALS: BP 121/74; PULSE 84; RESP 16; TEMP 36.6; O2SAT 99; BMI 27.1
--- NOTE | 2025-02-19 10:19 | ED_ITS ---
HPI - General Adult General Chief complaint: Anxiety Stated complaint: Anxiety Panic Attacks Time Seen by Provider: 02/19/25 10:19 Source: patient Mode of arrival: ambulatory Limitations: no limitations History of Present Illness ED Provider: Rowan Mcknight PA-C HPI narrative: Patient is a 39 year old assigned female at with a history of anxiety presenting to the emergency department today with anxiety. Patient states that she has been having headaches and had an MRI performed 2 days ago. Patient states that she has not gotten her MRI results and she has been anxious about them. Patient states that she has been taking her hydroxyzine as prescribed but remains anxious. Patient denies any dizziness, lightheadedness, abdominal pain, nausea, vomiting, fever, chills, blurry vision, double vision, loss of vision, chest pain, difficulty breathing, shortness of breath, back pain, night sweats, pain with urination, increased urinary frequency, increased urinary urgency, blood in her urine or stool, syncope or a near syncopal episode, recent trauma or falls, bowel incontinence, bladder incontinence, or any other complaints at this time. Onset (ago): day(s) (2) Relieving factors: none Exacerbating factors: none Associated symptoms: denies other symptoms Treatments prior to arrival: none Related Data Home Medications ?Medication ?Instructions ?Recorded ?Confirmed hydroxyzine HCl 50 mg tablet 50 mg PO BID PRN anxiety 04/23/23 diltiazem HCl 120 mg 120 mg PO DAILY 08/02/23 capsule,extended release 24 hr meloxicam 15 mg tablet 15 mg PO DAILY 01/19/24 sumatriptan succinate 50 mg tablet 50 mg PO Q2-4H PRN 03/01/24 Previous Rx's ?Medication ?Instructions ?Recorded gabapentin 100 mg capsule 100 mg PO BID #30 caps 04/19/23 ketorolac 10 mg tablet 10 mg PO TID PRN pain 5 days #15 08/26/23 tabs lorazepam 0.5 mg tablet 0.5 mg PO BEDTIME PRN anxiety #10 10/17/23 tabs benzonatate 100 mg capsule 100 mg PO BID PRN cough #10 caps 12/29/23 eamsrpsbxx-lnewitopkjujq-wunzuzpv 1 cap PO Q4-6H PRN pain #14 caps 01/07/24 50 mg-300 mg-40 mg capsule (Fioricet) meclizine 25 mg tablet 25 mg PO DAILY PRN dizziness #7 01/26/24 tabs cyclobenzaprine 10 mg tablet 10 mg PO TID PRN muscle spasm #20 02/11/24 tabs esomeprazole magnesium 40 mg 40 mg PO DAILY #30 caps 03/30/24 capsule,delayed release (Nexium) ketoconazole 2 % topical cream 1 appl topical BID #30 grams 05/30/24 doxycycline hyclate 100 mg tablet 100 mg PO BID 7 days #14 tabs 07/19/24 doxycycline hyclate 100 mg capsule 100 mg PO BID 14 days #28 caps 07/27/24 mupirocin 2 % topical ointment 1 appl topical BID 5 days #15 grams 09/18/24 cyclobenzaprine 10 mg tablet 10 mg PO TID PRN muscle spasm #14 01/25/25 tabs ondansetron 4 mg disintegrating 4 mg PO Q8H PRN nausea and 01/25/25 tablet vomiting #20 tabs sumatriptan succinate 50 mg tablet See Rx Instructions PO .COMPLEX 01/25/25 #14 tabs Allergies Allergy/AdvReac Type Severity Reaction Status Date / Time No Known Allergies Allergy Unknown NOT Verified 02/19/25 09:18 APPLICABLE Review of Systems Constitutional: Constitutional: Reports no additional constitutional complaints, Denies chills, Denies fever(s) and Denies night sweats Eyes: Eyes: Reports no additional eye complaints, Denies blurry vision, Denies change in vision, Denies diplopia, Denies eye discharge, Denies loss of vision and Denies eye pain ENT: Denies dizziness Cardiovascular: Cardiovascular: Reports no additional cardiovascular complaint s, Denies chest pain, Denies lightheadedness, Denies Loss of Consciousness and Denies dyspnea Respiratory: Respiratory: Reports no additional respiratory complaints and Denies dyspnea Gastrointestinal: Gastrointestinal: Reports no additional gastrointestinal complaints, Denies abdominal pain, Denies melena, Denies hematochezia, Denies change in bowel habits and Denies change in stool character Genitourinary: Genitourinary: Denies hematuria, Denies urinary frequency, Denies dysuria, Denies urinary incontinence, Denies urinary hesitancy and Denies urinary urgency Musculoskeletal: Musculoskeletal: Reports no additional musculoskeletal complaints, Denies numbness and Denies tingling Neurologic: Denies dizziness, Denies loss of vision, Denies numbness and Denies tingling Psychiatric: Psychiatric: Reports no additional psychiatric complaints and Reports anxiety Endocrine: Endocrine: Reports no additional endocrine complaints Hematologic/Lymphatic: Hematologic/Lymphatic: Reports no additional hematologic/lymphatic complaints Allergic/Immunologic: Allergic/Immunologic: Reports no additional allergic/immunologic complaints [facility] Past Medical History Attestation statement: The following information was validated with the patient. Source: old records reviewed and nursing notes reviewed Medical History Lyme disease Heart palpitations Anxiety Cholecystectomy planned delivery delivered Surgical History S/P cholecystectomy Social History Social History Alcohol intake: current Alcohol intake frequency: other Patient Tobacco Use Status: Current everyday Tobacco user Tobacco use type: Smokeless Tobacco Substance Use Type: Marijuana Advance Directives: No Advance Directives Information Provided: Yes Physical Exam ED Vital Signs: Vital Signs - 24 hr 02/19/25 09:17 02/19/25 10:42 Temperature 97.9 F 97.9 F Pulse Rate 84 84 Respiratory Rate 16 16 Blood Pressure 121/74 121/74 Pulse Oximetry 99 99 Oxygen Delivery Method Room Air Room Air BMI result Body Mass Index 27.1 Const General: cooperative, no acute distress, alert and awake Nutritional Appearance: well nourished Orientation/consciousness: patient oriented x3 Limitations: no limitations HENMT Head: Yes normal to inspection and Yes atraumatic Ears: hearing grossly normal bilaterally and external ears normal General nose exam: Normal external nose present, no nasal discharge noted and no epistaxis Face and sinus: Yes normal facial exam, No abrasion and No laceration Mouth: Normal oral and palatal mucosa present, no drooling and no muffled voice Eyes General: appearance normal, both eyes and all related structures Periorbital: periorbital findings normal Eyelids: Yes eyelids normal Conjunctivae: conjunctivae normal Pupils: Equal, round and reactive pupils present EOM: EOMs intact bilaterally Neck Neck: Yes normal visual inspection, Yes full ROM and Yes no lymphadenopathy Chest Chest palpation & inspection: normal inspection of the chest Resp Effort & Inspection: normal respiratory effort and able to speak in complete sentences GI Inspection: Yes normal to inspection Neuro General: patient oriented x3, moves all extremities and CN's II-XI intact bilaterally Cranial nerves: Yes Equal, round and reactive pupils present Cognition (Neuro): normal cognition Extrem General: Yes normal to inspection, Yes full ROM and Yes capillary refill normal Psych Appearance: grossly normal Mental Status: mental status grossly normal Affect: normal affect Attitude: cooperative Thought process: Normal thought process present Thought content: Normal thought content present Insight: Good insight present (Psych) Medications Administered Discontinued Medications Generic Name Dose Route Start Last Admin Trade Name Gerson PRN Reason Stop Dose Admin Lorazepam 2 mg 02/19/25 10:27 02/19/25 10:35 Lorazepam 1 Mg Tablet PO 02/19/25 10:28 2 mg ONCE ONE Administration Medical Decision Making Medical Decision Making MDM Narrative: Patient is a 39 year old assigned female at with a history of anxiety presenting to the emergency department today with anxiety. Patient's physical exam was unremarkable. I explained my physical exam findings to the patient. I answered all questions asked by the patient. I attempted to find the results for the patient's MRI however - the patient's MRI has not yet been read. Patient received one dose of PO Ativan which, upon re-evaluation, she stated it helped her anxiety significantly and she felt well enough to go home and continue her home anti-anxiety regimen. I stressed the importance of the patient taking her medication as directed (either prescribed or as the over the counter packaging recommends). I stressed the importance of the patient following up with her primary care provider. I stressed the importance of the patient returning to the emergency department immediately if her symptoms were to worsen or if she were to develop any dizziness, shortness of breath, difficulty breathing, chest pain, blurry vision, loss of vision, nausea, vomiting, abdominal pain, fever, chills, back pain, or any other complaints. Patient verbalized agreement and understanding with this treatment plan and discharge. Differential Diagnosis Differential Diagnoses: The differential diagnosis associated with the presentation includes Anxiety Admission/Observation Consideration of admission/observation: Escalation of care including admission/observation considered Patient would have been admitted to the hospital had her clinical presentation warranted hospital admission. Tests considered The following testing was considered but not selected: I considered obtaining an EKG, a CBC, a CMP, and a TSH with a free T4 however - the patient's current clinical presentation does not warrant this. I discussed this with the patient who verbalized understanding and agreement. Discharge Plan Discharge Clinical Impression: Anxiety Patient Disposition: Home, Self-Care Instructions: Anxiety (ED) Additional Instructions: Follow up with your primary care provider. Return to the emergency department immediately if your symptoms worsen or if you develop any numbness, tingling, dizziness, shortness of breath, difficulty breathing, chest pain, blurry vision, loss of vision, nausea, vomiting, abdominal pain, fever, chills, back pain, or any other complaints. Please see the information below about our Patient Portal. If you are not yet enrolled in the [facility] Patient Portal, you will receive an enrollment email invitation following your visit to any [facility] setting. You may also self-enroll in the Patient Portal by visiting our website: [email or web address] The following information is required to access the Patient Portal: - Your [facility] Medical Record Number - Your personal home email address (must match what is in your electronic medical record, Registration staff can assist with this) - Name - Date of Capabilities of the Patient Portal: - Message some providers - View upcoming appointments - Access your health summary, medical history, and visit history - View current conditions and allergies - View procedure and lab results - View your medications, including guidelines, side effects, and precautions - Complete pre-appointment questionnaires requested by your provider - Ready summary reports of your office visits and procedures To access the Patient Portal Mobile Melo, follow these directions: - Search [employer] [place] in the Melo Store or Google Play Store - Download the Melo - Search for [facility] - Enter your login/password Prescriptions: No Action esomeprazole magnesium [Nexium] 40 mg capsule,delayed release(DR/EC) 40 mg PO DAILY Qty: 30 5RF pypqewqatw-ikjbuemtcxhtc-lhzb [Fioricet] 50-300-40 mg capsule 1 cap PO Q4-6H PRN (Reason: pain) Qty: 14 0RF sumatriptan succinate 50 mg tablet See Rx Instructions .ROUTE .COMPLEX Qty: 14 0RF Rx Instructions: take 1 tab at onset of headache; if no relief may repeat 1 tab after at least 2 hrs; max = 4 tabs/24 hr cyclobenzaprine 10 mg tablet 10 mg PO TID PRN (Reason: muscle spasm) Qty: 14 0RF ondansetron 4 mg tablet,disintegrating 4 mg PO Q8H PRN (Reason: nausea and vomiting) Qty: 20 0RF gabapentin 100 mg capsule 100 mg PO BID Qty: 30 0RF ketorolac 10 mg tablet 10 mg PO TID PRN (Reason: pain) 5 Days Qty: 15 0RF lorazepam 0.5 mg tablet 0.5 mg PO BEDTIME PRN (Reason: anxiety) Qty: 10 0RF benzonatate 100 mg capsule 100 mg PO BID PRN (Reason: cough) Qty: 10 0RF meclizine 25 mg tablet 25 mg PO DAILY PRN (Reason: dizziness) Qty: 7 0RF cyclobenzaprine 10 mg tablet 10 mg PO TID PRN (Reason: muscle spasm) Qty: 20 0RF ketoconazole 2 % cream 1 appl topical BID Qty: 30 0RF doxycycline hyclate 100 mg tablet 100 mg PO BID 7 Days Qty: 14 0RF doxycycline hyclate 100 mg capsule 100 mg PO BID 14 Days Qty: 28 0RF mupirocin 2 % ointment 1 appl topical BID 5 Days Qty: 15 0RF hydroxyzine HCl 50 mg tablet 50 mg PO BID PRN (Reason: anxiety) sumatriptan succinate 50 mg tablet 50 mg PO Q2-4H PRN diltiazem HCl 120 mg capsule,extended release 24hr 120 mg PO DAILY meloxicam 15 mg tablet 15 mg PO DAILY Referrals: [facility] [Provider Group] (Call to establish and follow up with a primary care provider. If you already have a primary care provider, please follow up with them.) [facility] [Provider Group] (Call to establish and follow up with a primary care provider. If you already have a primary care provider, please follow up with them.) [facility] [Provider Group] (Call to establish and follow up with a primary care provider. If you already have a primary care provider, please fol low up with them.) [facility] [Provider Group] (Call to establish and follow up with a primary care provider. If you already have a primary care provider, please follow up with them.) Stand Alone Forms: Work/School Release Interventions: ED Discharge Assessment Last Done: 02/19/25 10:42 Discharge Date/Time: 02/19/25 10:43 Print Language: Lithuanian
[2025-02-19] MEDS: LORazepam 1 MG TABLET 2 MG PO (10:35)
--- NOTE | 2025-02-19 10:41 | PC.NURSE ---
pt was seen by provider and made aware of the DC plan. SHe was medicated and discharged
[2025-02-19 10:42] VITALS: BP 121/74; PULSE 84; RESP 16; TEMP 36.6; O2SAT 99
== END 2025-02-19 10:43 | disposition home or self-care (01) ==
PROVIDERS: Emergency Provider Emergency Medicine
DX: F41.9 Anxiety disorder, unspecified (principal); Z79.899 Other long term (current) drug therapy
CPT/HCPCS: 99282; 99283

== ENCOUNTER 2025-05-01 08:41 | Emergency (ER) | payer OTHER, SELFPAY ==
--- NOTE | ~2025-05-01 | US_ITS ---
EXAMINATION: US RETROPERITONEAL LIMITED (RENAL ONLY) CLINICAL INFORMATION: Left flank pain radiating to the left lower quadrant, symptoms of urinary tract infection.. COMPARISON: February 11, 2024 TECHNIQUE: Grayscale and color Doppler imaging was performed through both kidneys. FINDINGS: RIGHT KIDNEY: 10.6 x 3.5 x 4.7 cm (SAG x AP x TRV). The kidney is normal in size, contour, and echogenicity. Renal cortical thickness is normal. No calculi or focal parenchymal lesions. Renal pelvis is mildly prominent.. LEFT KIDNEY: 10.2 x 4.5 x 4.2 cm (SAG x AP x TRV). The kidney is normal in size, contour, and echogenicity. Renal cortical thickness is normal. No calculi or focal parenchymal lesions. No hydronephrosis is noted but the renal pelvis is obscured by bowel gas. US/US renal BI IMPRESSION: Essentially unremarkable renal ultrasound. The right UPJ is mildly prominent, a nonspecific finding. The left UPJ is not well-demonstrated due to overlying bowel gas. Electronically signed by: Russell Lee MD 05/01/2025 12:48 PM EDT
--- NOTE | ~2025-05-01 | CT_ITS ---
EXAMINATION: CT ABDOMEN AND PELVIS WITHOUT CONTRAST CLINICAL INFORMATION: Left flank pain DLP: 643 mGY*cm COMPARISON: April 05, 2023 TECHNIQUE: Multidetector volumetric imaging was performed from the superior aspect of the liver through the pubic symphysis. Sagittal and coronal reformatted images were obtained on the technologist's workstation. This CT examination was performed using dose optimization techniques as appropriate, variously including the following: *Automated exposure control *Adjustment of mA and/or kV according to patient size (this includes techniques or standardized protocols for targeted exams where dose is matched to indication/reason for exam; i.e. extremities or head) *Use of iterative reconstruction technique FINDINGS: LUNG BASES: The visualized lung bases are unremarkable. LIVER, GALLBLADDER, AND BILIARY TREE: The liver is normal in size, shape, and attenuation. No focal hepatic lesion or biliary ductal dilatation is present. There are clips status post cholecystectomy. PANCREAS: Unremarkable. SPLEEN: Unremarkable. ADRENAL GLANDS: Unremarkable. KIDNEYS AND URETERS: There is no hydronephrosis. The ureters are nondilated. There is a punctate calcification (series 3, image 81/94) near the distal left ureter. This calcific lesions present on the prior examination and is most consistent with a vascular/non-ureteral calcification. BLADDER: Unremarkable. GASTROINTESTINAL TRACT: The small and large bowel are unremarkable. The appendix is unremarkable. ABDOMINAL WALL: No significant hernia is appreciated. LYMPH NODES: Normal. VASCULAR: Unremarkable. PELVIC VISCERA: Uterus unremarkable. There is a mature follicle in the right ovary. OSSEOUS STRUCTURES: Degenerative endplate changes are noted in the lower thoracic spine. CT/CT abdomen pelvis wo IV con IMPRESSION: No hydronephrosis or renal calculi. 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 Fleischner guidelines were followed. Electronically signed by: Russell Lee MD 05/01/2025 05:03 PM EDT
[2025-05-01 08:50] VITALS: BP 113/66; PULSE 80; RESP 18; TEMP 36.6; O2SAT 100; BMI 27.4
[2025-05-01 10:41] LABS: Appearance Urine Cloudy; Color Urine Yellow; Glucose Urine UA Negative (Negative); Leukocyte Esterase Urine Moderate (2+) (Negative); Nitrite Urine Negative (Negative); PH 7.5 (5.0-9.0); Specific Gravity - Urine 1.015 (1.005-1.025); UMIC TRIGGER UACC YES; Urine Blood Negative (Negative); Urine Ketones Negative (Negative); Urine Protein Negative (Neg-Trace)
[2025-05-01 10:42] LABS: UPreg QC Valid YES; Urine Pregnancy NEGATIVE (NEGATIVE)
[2025-05-01 10:43] LABS: Bacteria Urine 2+ (None Seen); Hyaline Casts Urine 0-2 /LPF (0-2); RBC Urine 0-2 /HPF (0-2); Squamous Epithelial Cell Urine >20 /HPF (0-2); UACC Culture Trigger YES
[2025-05-01 11:34] LABS: CT PCR NOT DETECTED (Not Detect.); NG PCR NOT DETECTED (Not Detect.)
--- NOTE | 2025-05-01 11:51 | ED_ITS ---
HPI - Female Genitourinary General Chief complaint: Urogenital-Female Stated complaint: UTI? Time Seen by Provider: 05/01/25 15:42 Related Data Home Medications ?Medication ?Instructions ?Recorded ?Confirmed hydroxyzine HCl 50 mg tablet 50 mg PO BID PRN anxiety 04/23/23 diltiazem HCl 120 mg 120 mg PO DAILY 08/02/23 capsule,extended release 24 hr meloxicam 15 mg tablet 15 mg PO DAILY 01/19/24 sumatriptan succinate 50 mg tablet 50 mg PO Q2-4H PRN 03/01/24 Previous Rx's ?Medication ?Instructions ?Recorded gabapentin 100 mg capsule 100 mg PO BID #30 caps 04/19/23 ketorolac 10 mg tablet 10 mg PO TID PRN pain 5 days #15 08/26/23 tabs lorazepam 0.5 mg tablet 0.5 mg PO BEDTIME PRN anxiety #10 10/17/23 tabs benzonatate 100 mg capsule 100 mg PO BID PRN cough #10 caps 12/29/23 hjlhydyfzx-nxujklcfwrtby-hqesaint 1 cap PO Q4-6H PRN pain #14 caps 01/07/24 50 mg-300 mg-40 mg capsule (Fioricet) meclizine 25 mg tablet 25 mg PO DAILY PRN dizziness #7 01/26/24 tabs cyclobenzaprine 10 mg tablet 10 mg PO TID PRN muscle spasm #20 02/11/24 tabs esomeprazole magnesium 40 mg 40 mg PO DAILY #30 caps 03/30/24 capsule,delayed release (Nexium) ketoconazole 2 % topical cream 1 appl topical BID #30 grams 05/30/24 doxycycline hyclate 100 mg tablet 100 mg PO BID 7 days #14 tabs 07/19/24 doxycycline hyclate 100 mg capsule 100 mg PO BID 14 days #28 caps 07/27/24 mupirocin 2 % topical ointment 1 appl topical BID 5 days #15 grams 09/18/24 cyclobenzaprine 10 mg tablet 10 mg PO TID PRN muscle spasm #14 01/25/25 tabs ondansetron 4 mg disintegrating 4 mg PO Q8H PRN nausea and 01/25/25 tablet vomiting #20 tabs sumatriptan succinate 50 mg tablet See Rx Instructions PO .COMPLEX 01/25/25 #14 tabs cefuroxime axetil 500 mg tablet 500 mg PO BID pyelo 10 days #20 05/01/25 tabs ondansetron 4 mg disintegrating 4 mg PO TID PRN nausea and 05/01/25 tablet vomiting 5 days #10 tabs Allergies Allergy/AdvReac Type Severity Reaction Status Date / Time No Known Allergies Allergy Unknown NOT Verified 05/01/25 08:52 APPLICABLE FOR[facility]LY [facility] Past Medical History Medical History Lyme disease Heart palpitations Anxiety Cholecystectomy planned delivery delivered Surgical History S/P cholecystectomy Social History Social History Alcohol intake: current Alcohol intake frequency: other Patient Tobacco Use Status: Current everyday Tobacco user Tobacco use type: Smokeless Tobacco Smoked in Last 30 Days: No Use of substances other than those prescribed or required for medical reasons: No Substance Use Type: Marijuana Advance Directives: No Advance Directives Information Provided: No Do you have a plan to hurt others: No Plan Physical Exam 2 Vital Signs: Vital Signs: Last Vital Signs Temp 98.5 F 05/01/25 17:14 Pulse 70 05/01/25 17:14 Resp 20 05/01/25 17:14 BP 110/77 05/01/25 17:14 Pulse Ox 100 05/01/25 17:14 O2 Del Method Room Air 05/01/25 17:14 BMI result Body Mass Index 27.4 Course Course Course Narrative: This is a Rapid Medical Exam performed in triage by Mikaela Andujar PA-C. Full HPI, ROS and PE to be performed by primary ED provider. 39-year-old female with a past medical history nephrolithiasis, anxiety presenting to the ED c/o left flank pain radiating to left lower quadrant x 1 week. Pain is intermittent with associated urinary frequency/hesitancy and dysuria. Denies vaginal bleeding/discharge. Admits symptoms with similar to prior renal stones in the past PE: NAD, nontoxic appearing, ambulating with steady gait Plan: Labs, UA, renal ultrasound Medications Administered Discontinued Medications Generic Name Dose Route Start Last Admin Trade Name Freq PRN Reason Stop Dose Admin Ceftriaxone Sodium 1 gm 05/01/25 15:54 05/01/25 16:25 Ceftriaxone Sodium 1 Gm Vial IVPUSH 05/01/25 15:55 1 gm ONCE ONE Administration Sodium Chloride 1,000 mls @ 999 mls/hr 05/01/25 16:00 05/01/25 16:25 Ns IV 05/01/25 17:00 999 mls/hr .Q1H1M ROGERS Administration Ketorolac Tromethamine 15 mg 05/01/25 15:53 05/01/25 16:25 Ketorolac Tromethamine 15 Mg/Ml Vial IVPUSH 05/01/25 15:54 15 mg ONCE ONE Administration Ondansetron HCl 4 mg 05/01/25 15:53 05/01/25 16:24 Ondansetron Hcl 4 Mg/2 Ml Vial IVPUSH 05/01/25 15:54 4 mg ONCE ONE Administration Medical Decision Making Lab Data 05/01/25 12:07 05/01/25 12:07 Labs: Lab Results 05/01/25 05/01/25 05/01/25 Range/Units 08:59 10:33 12:07 WBC 8.3 (4.8-10.8) X10*3/uL RBC 4.51 (4.20-5.50) X10*6/uL Hgb 13.9 (12.0-16.0) g/dl Hct 41.6 (37.0-47.0) % MCV 92.2 (80.0-98.0) fL MCH 30.8 (27.0-33.0) pg MCHC 33.4 (31.0-35.0) g/dl RDW 13.0 (11.0-16.0) % Plt Count 237 (160-400) X10*3/uL MPV 10.2 (9.4-12.3) fL Immature Gran % (Auto) 0.4 (0.0-0.4) % Neut % (Auto) 67.3 (45-73) % Lymph % (Auto) 24.9 (20-40) % [place] % (Auto) 6.2 (2-11) % Eos % (Auto) 0.7 (0-4) % Baso % (Auto) 0.5 (0-2) % Lymph # (Auto) 2.1 (1.2-4.9) X10*3/uL [place] # (Auto) 0.5 (0.1-1.2) X10*3/uL Eos # (Auto) 0.1 (0.0-0.4) X10*3/uL Baso # (Auto) 0.0 (0.0-0.2) X10*3/uL Abs Immat Gran (auto) 0.03 (0.00-0.03) X10*3/uL Absolute Neuts (auto) 5.6 (2.0-8.3) x10*3/uL Absolute Nucleated RBC 0.000 (0.0-0.012) X10*3/uL Nucleated RBC % (auto) 0.0 (0.0-0.2) /100WBC Sodium 141 (135-145) mmol/L Potassium 5.2 H (3.3-5.1) mmol/L Chloride 110 H (96-108) mmol/L Carbon Dioxide 25 (22-29) mmol/L Anion Gap 11 L (12-20) BUN 10 (9-16) mg/dL Creatinine 0.74 (0.5-1.4) mg/dL Estim Creat Clear Calc 109.1 Estimated GFR > 60 Random Glucose 101 (60-115) mg/dL Lactic Acid (0.5-2.0) mmol/L Calcium 9.4 D (8.4-10.2) mg/dL Magnesium 1.8 (1.6-2.6) mg/dL Total Bilirubin 1.3 H (0.0-1.0) mg/dL Direct Bilirubin 0.4 (0.0-0.5) mg/dL AST 17 (5-31) U/L ALT 12 (0-31) U/L Alkaline Phosphatase 56 (39-117) U/L Total Protein 6.9 (6.5-8.0) g/dL Albumin 4.2 (3.5-5.0) g/dL Lipase 18 (8-78) U/L Urine Color Yellow Urine Appearance Cloudy Urine pH 7.5 (5.0-9.0) Ur Specific [place] 1.015 (1.005-1.025) Urine Protein Negative (Neg-Trace) mg/dL Urine Glucose (UA) Negative (Negative) mg/dL Urine Ketones Negative (Negative) mg/dL Urine Blood Negative (Negative) Urine Nitrite Negative (Negative) Ur Leukocyte Esterase Moderate (2+) H (Negative) Urine RBC 0-2 (0-2) /HPF Urine WBC 6-10 H (0-5) /HPF Ur Squamous Epith Cells >20 (0-2) /HPF Urine Bacteria 2+ (None Seen) Hyaline Casts 0-2 (0-2) /LPF Urine Test NEGATIVE (NEGATIVE) Chlam trachomat DNA PCR NOT DETECTED (Not Detect.) N.gonorrhoeae DNA (PCR) NOT DETECTED (Not Detect.) 05/01/25 Range/Units 16:16 WBC (4.8-10.8) X10*3/uL RBC (4.20-5.50) X10*6/uL Hgb (12.0-16.0) g/dl Hct (37.0-47.0) % MCV (80.0-98.0) fL MCH (27.0-33.0) pg MCHC (31.0-35.0) g/dl RDW (11.0-16.0) % Plt Count (160-400) X10*3/uL MPV (9.4-12.3) fL Immature Gran % (Auto) (0.0-0.4) % Neut % (Auto) (45-73) % Lymph % (Auto) (20-40) % [place] % (Auto) (2-11) % Eos % (Auto) (0-4) % Baso % (Auto) (0-2) % Lymph # (Auto) (1.2-4.9) X10*3/uL [place] # (Auto) (0.1-1.2) X10*3/uL Eos # (Auto) (0.0-0.4) X10*3/uL Baso # (Auto) (0.0-0.2) X10*3/uL Abs Immat Gran (auto) (0.00-0.03) X10*3/uL Absolute Neuts (auto) (2.0-8.3) x10*3/uL Absolute Nucleated RBC (0.0-0.012) X10*3/uL Nucleated RBC % (auto) (0.0-0.2) /100WBC Sodium (135-145) mmol/L Potassium (3.3-5.1) mmol/L Chloride (96-108) mmol/L Carbon Dioxide (22-29) mmol/L Anion Gap (12-20) BUN (9-16) mg/dL Creatinine (0.5-1.4) mg/dL Estim Creat Clear Calc Estimated GFR Random Glucose (60-115) mg/dL Lactic Acid 1.8 (0.5-2.0) mmol/L Calcium (8.4-10.2) mg/dL Magnesium (1.6-2.6) mg/dL Total Bilirubin (0.0-1.0) mg/dL Direct Bilirubin (0.0-0.5) mg/dL AST (5-31) U/L ALT (0-31) U/L Alkaline Phosphatase (39-117) U/L Total Protein (6.5-8.0) g/dL Albumin (3.5-5.0) g/dL Lipase (8-78) U/L Urine Color Urine Appearance Urine pH (5.0-9.0) Ur Specific [place] (1.005-1.025) Urine Protein (Neg-Trace) mg/dL Urine Glucose (UA) (Negative) mg/dL Urine Ketones (Negative) mg/dL Urine Blood (Negative) Urine Nitrite (Negative) Ur Leukocyte Esterase (Negative) Urine RBC (0-2) /HPF Urine WBC (0-5) /HPF Ur Squamous Epith Cells (0-2) /HPF Urine Bacteria (None Seen) Hyaline Casts (0-2) /LPF Urine Test (NEGATIVE) Chlam trachomat DNA PCR (Not Detect.) N.gonorrhoeae DNA (PCR) (Not Detect.) Discharge Plan Discharge Clinical Impression: Pyelonephritis Patient Disposition: Home, Self-Care Instructions: Kidney Infection (ED) Prescriptions: New cefuroxime axetil 500 mg tablet 500 mg PO BID 10 Days Qty: 20 0RF ondansetron 4 mg tablet,disintegrating 4 mg PO TID PRN (Reason: nausea and vomiting) 5 Days Qty: 10 0RF No Action esomeprazole magnesium [Nexium] 40 mg capsule,delayed release(DR/EC) 40 mg PO DAILY Qty: 30 5RF lgtxkgekev-swbetsqwbkvpx-leeo [Fioricet] 50-300-40 mg capsule 1 cap PO Q4-6H PRN (Reason: pain) Qty: 14 0RF sumatriptan succinate 50 mg tablet See Rx Instructions .ROUTE .COMPLEX Qty: 14 0RF Rx Instructions: take 1 tab at onset of headache; if no relief may repeat 1 tab after at least 2 hrs; max = 4 tabs/24 hr cyclobenzaprine 10 mg tablet 10 mg PO TID PRN (Reason: muscle spasm) Qty: 14 0RF ondansetron 4 mg tablet,disintegrating 4 mg PO Q8H PRN (Reason: nausea and vomiting) Qty: 20 0RF gabapentin 100 mg capsule 100 mg PO BID Qty: 30 0RF ketorolac 10 mg tablet 10 mg PO TID PRN (Reason: pain) 5 Days Qty: 15 0RF lorazepam 0.5 mg tablet 0.5 mg PO BEDTIME PRN (Reason: anxiety) Qty: 10 0RF benzonatate 100 mg capsule 100 mg PO BID PRN (Reason: cough) Qty: 10 0RF meclizine 25 mg tablet 25 mg PO DAILY PRN (Reason: dizziness) Qty: 7 0RF cyclobenzaprine 10 mg tablet 10 mg PO TID PRN (Reason: muscle spasm) Qty: 20 0RF ketoconazole 2 % cream 1 appl topical BID Qty: 30 0RF doxycycline hyclate 100 mg tablet 100 mg PO BID 7 Days Qty: 14 0RF doxycycline hyclate 100 mg capsule 100 mg PO BID 14 Days Qty: 28 0RF mupirocin 2 % ointment 1 appl topical BID 5 Days Qty: 15 0RF hydroxyzine HCl 50 mg tablet 50 mg PO BID PRN (Reason: anxiety) sumatriptan succinate 50 mg tablet 50 mg PO Q2-4H PRN diltiazem HCl 120 mg capsule,extended release 24hr 120 mg PO DAILY meloxicam 15 mg tablet 15 mg PO DAILY Referrals: Simi Noland NP [Primary Care Provider] - 05/03/25 Print Language: Guamanian
[2025-05-01 12:12] LABS: MANUAL DIFF FLAG NO
[2025-05-01 12:14] LABS: Basophils Percent Auto 0.5 % (0-2); Eosinophils Absolute Auto 0.1 X10*3/uL (0.0-0.4); Eosinophils Percent Auto 0.7 % (0-4); Hematocrit 41.6 % (37.0-47.0); Hemoglobin 13.9 g/dl (12.0-16.0); Imm Gran Abs Auto 0.03 X10*3/uL (0.00-0.03); Imm Gran Pct Auto 0.4 % (0.0-0.4); Lymphocytes Absolute Auto 2.1 X10*3/uL (1.2-4.9); Lymphocytes Percent Auto 24.9 % (20-40); Mean Corpuscular HGB Conc 33.4 g/dl (31.0-35.0); Mean Corpuscular Hemoglobin 30.8 pg (27.0-33.0); Mean Corpuscular Volume 92.2 fL (80.0-98.0); Mean Platelet Volume 10.2 fL (9.4-12.3); Monocytes Absolute Auto 0.5 X10*3/uL (0.1-1.2); Monocytes Percent Auto 6.2 % (2-11); Neutrophils Absolute Auto 5.6 x10*3/uL (2.0-8.3); Neutrophils Percent Auto 67.3 % (45-73); Platelet Count 237 X10*3/uL (160-400); Red Blood Count 4.51 X10*6/uL (4.20-5.50); White Blood Count 8.3 X10*3/uL (4.8-10.8)
[2025-05-01 12:34] LABS: Alanine Aminotransferase 12 U/L (0-31); Albumin Level 4.2 g/dL (3.5-5.0); Alkaline Phosphatase 56 U/L (39-117); Anion Gap 11 (12-20); Aspartate Amino Transferase 17 U/L (5-31); Bilirubin Direct 0.4 mg/dL (0.0-0.5); Bilirubin Total 1.3 mg/dL (0.0-1.0); Blood Urea Nitrogen 10 mg/dL (9-16); Calcium 9.4 mg/dL (8.4-10.2); Carbon Dioxide 25 mmol/L (22-29); Chloride 110 mmol/L (96-108); Creatinine Clr Calc Pharmacy 109.1; Estimated Glomerular Filt Rate > 60; Glucose Random 101 mg/dL (60-115); Lipase 18 U/L (8-78); Magnesium 1.8 mg/dL (1.6-2.6); Potassium 5.2 mmol/L (3.3-5.1); Sodium 141 mmol/L (135-145); Total Protein 6.9 g/dL (6.5-8.0)
--- NOTE | 2025-05-01 15:56 | ED_ITS ---
HPI - Female Genitourinary General Chief complaint: Urogenital-Female Stated complaint: UTI? Time Seen by Provider: 05/01/25 15:42 History of Present Illness HPI Narrative: Patient is a 39-year-old female history of UTI. Complaining of left-sided flank pain. Patient states she has a chance of being . There is no vaginal discharge. No fever no chills. No diaphoresis. Positive mild nausea. Normal bowel movement. No abdominal surgery done in the past. Patient is from home. Has a history of kidney stones in the past. Related Data Home Medications ?Medication ?Instructions ?Recorded ?Confirmed hydroxyzine HCl 50 mg tablet 50 mg PO BID PRN anxiety 04/23/23 diltiazem HCl 120 mg 120 mg PO DAILY 08/02/23 capsule,extended release 24 hr meloxicam 15 mg tablet 15 mg PO DAILY 01/19/24 sumatriptan succinate 50 mg tablet 50 mg PO Q2-4H PRN 03/01/24 Previous Rx's ?Medication ?Instructions ?Recorded gabapentin 100 mg capsule 100 mg PO BID #30 caps 04/19/23 ketorolac 10 mg tablet 10 mg PO TID PRN pain 5 days #15 08/26/23 tabs lorazepam 0.5 mg tablet 0.5 mg PO BEDTIME PRN anxiety #10 10/17/23 tabs benzonatate 100 mg capsule 100 mg PO BID PRN cough #10 caps 12/29/23 ayfmcjoodm-rxipkclecadhp-lbgwiiod 1 cap PO Q4-6H PRN pain #14 caps 01/07/24 50 mg-300 mg-40 mg capsule (Fioricet) meclizine 25 mg tablet 25 mg PO DAILY PRN dizziness #7 01/26/24 tabs cyclobenzaprine 10 mg tablet 10 mg PO TID PRN muscle spasm #20 02/11/24 tabs esomeprazole magnesium 40 mg 40 mg PO DAILY #30 caps 03/30/24 capsule,delayed release (Nexium) ketoconazole 2 % topical cream 1 appl topical BID #30 grams 05/30/24 doxycycline hyclate 100 mg tablet 100 mg PO BID 7 days #14 tabs 07/19/24 doxycycline hyclate 100 mg capsule 100 mg PO BID 14 days #28 caps 07/27/24 mupirocin 2 % topical ointment 1 appl topical BID 5 days #15 grams 09/18/24 cyclobenzaprine 10 mg tablet 10 mg PO TID PRN muscle spasm #14 01/25/25 tabs ondansetron 4 mg disintegrating 4 mg PO Q8H PRN nausea and 01/25/25 tablet vomiting #20 tabs sumatriptan succinate 50 mg tablet See Rx Instructions PO .COMPLEX 01/25/25 #14 tabs cefuroxime axetil 500 mg tablet 500 mg PO BID pyelo 10 days #20 05/01/25 tabs ondansetron 4 mg disintegrating 4 mg PO TID PRN nausea and 05/01/25 tablet vomiting 5 days #10 tabs Allergies Allergy/AdvReac Type Severity Reaction Status Date / Time No Known Allergies Allergy Unknown NOT Verified 05/01/25 08:52 APPLICABLE Review of Systems 2 Review of Systems: Positive abdominal pain and left flank pain PMFSH Past Medical History Attestation statement: The following information was validated with the patient. Medical History Lyme disease Heart palpitations Anxiety Cholecystectomy planned delivery delivered Surgical History S/P cholecystectomy Social History Social History Alcohol intake: current Alcohol intake frequency: other Patient Tobacco Use Status: Current everyday Tobacco user Tobacco use type: Smokeless Tobacco Smoked in Last 30 Days: No Use of substances other than those prescribed or required for medical reasons: No Substance Use Type: Marijuana Advance Directives: No Advance Directives Information Provided: No Do you have a plan to hurt others: No Plan Physical Exam 2 Vital Signs: Vital Signs: Last Vital Signs Temp 98.5 F 05/01/25 17:14 Pulse 70 05/01/25 17:14 Resp 20 05/01/25 17:14 BP 110/77 05/01/25 17:14 Pulse Ox 100 05/01/25 17:14 O2 Del Method Room Air 05/01/25 17:14 BMI result Body Mass Index 27.4 Appearance: Alert. Oriented X3. No acute distress. Eyes: Pupils equal, round and reactive to light. ENT: Pharynx normal. Neck: Normal inspection. Neck supple. No lymph nodes noted. No crepitus CVS: Normal heart rate and rhythm. Pulses normal. Normal S1 and S2 Respiratory: No respiratory distress. Breath sounds normal. No Wheezing. No rales Abdomen: Soft and nontender. No rigidity. No distention. good BS x4 Skin: Skin warm and dry. Normal skin color. Normal skin turgor. Extremities: No lower extremity edema. Neurovascular intact to all extremities. No Lacerations. No Rash Neuro: Oriented X 3. No motor deficit. No sensory deficit. Moving all extermities. No slurred speech Medications Administered Discontinued Medications Generic Name Dose Route Start Last Admin Trade Name Elvisq PRN Reason Stop Dose Admin Ceftriaxone Sodium 1 gm 05/01/25 15:54 05/01/25 16:25 Ceftriaxone Sodium 1 Gm Vial IVPUSH 05/01/25 15:55 1 gm ONCE ONE Administration Sodium Chloride 1,000 mls @ 999 mls/hr 05/01/25 16:00 05/01/25 16:25 Ns IV 05/01/25 17:00 999 mls/hr .Q1H1M ROGERS Administration Ketorolac Tromethamine 15 mg 05/01/25 15:53 05/01/25 16:25 Ketorolac Tromethamine 15 Mg/Ml Vial IVPUSH 05/01/25 15:54 15 mg ONCE ONE Administration Ondansetron HCl 4 mg 05/01/25 15:53 05/01/25 16:24 Ondansetron Hcl 4 Mg/2 Ml Vial IVPUSH 05/01/25 15:54 4 mg ONCE ONE Administration Medical Decision Making Medical Decision Making [facility] Narrative: Patient's urine showed a possible UTI. Lactate was 1.8 has flank pain. The symptoms consistent with having pyelonephritis. Patient's lactate is 1.8 there is no evidence for severe sepsis. Antibiotic was started. Will discharge patient home as patient's symptom improved after IV fluids and antibiotics. Ultrasound was done. It did not show any acute evidence of kidney stone. It did show hydro on the right side of question significance. CT scan of the abdomen pelvis showed no kidney stone no obstruction no abscess Differential Diagnosis Differential Diagnoses: The differential diagnosis associated with the presentation includes UTI, related issue, appendicitis Admission/Observation Consideration of admission/observation: Escalation of care including admission/observation considered Lab Data [facility] Lab Attestation statement: I reviewed the patient's lab results. 05/01/25 12:07 05/01/25 12:07 Labs: Lab Results 05/01/25 05/01/25 05/01/25 Range/Units 08:59 10:33 12:07 WBC 8.3 (4.8-10.8) X10*3/uL RBC 4.51 (4.20-5.50) X10*6/uL Hgb 13.9 (12.0-16.0) g/dl Hct 41.6 (37.0-47.0) % MCV 92.2 (80.0-98.0) fL MCH 30.8 (27.0-33.0) pg MCHC 33.4 (31.0-35.0) g/dl RDW 13.0 (11.0-16.0) % Plt Count 237 (160-400) X10*3/uL MPV 10.2 (9.4-12.3) fL Immature Gran % (Auto) 0.4 (0.0-0.4) % Neut % (Auto) 67.3 (45-73) % Lymph % (Auto) 24.9 (20-40) % [place] % (Auto) 6.2 (2-11) % Eos % (Auto) 0.7 (0-4) % Baso % (Auto) 0.5 (0-2) % Lymph # (Auto) 2.1 (1.2-4.9) X10*3/uL [place] # (Auto) 0.5 (0.1-1.2) X10*3/uL Eos # (Auto) 0.1 (0.0-0.4) X10*3/uL Baso # (Auto) 0.0 (0.0-0.2) X10*3/uL Abs Immat Gran (auto) 0.03 (0.00-0.03) X10*3/uL Absolute Neuts (auto) 5.6 (2.0-8.3) x10*3/uL Absolute Nucleated RBC 0.000 (0.0-0.012) X10*3/uL Nucleated RBC % (auto) 0.0 (0.0-0.2) /100WBC Sodium 141 (135-145) mmol/L Potassium 5.2 H (3.3-5.1) mmol/L Chloride 110 H (96-108) mmol/L Carbon Dioxide 25 (22-29) mmol/L Anion Gap 11 L (12-20) BUN 10 (9-16) mg/dL Creatinine 0.74 (0.5-1.4) mg/dL Estim Creat Clear Calc 109.1 Estimated GFR > 60 Random Glucose 101 (60-115) mg/dL Lactic Acid (0.5-2.0) mmol/L Calcium 9.4 D (8.4-10.2) mg/dL Magnesium 1.8 (1.6-2.6) mg/dL Total Bilirubin 1.3 H (0.0-1.0) mg/dL Direct Bilirubin 0.4 (0.0-0.5) mg/dL AST 17 (5-31) U/L ALT 12 (0-31) U/L Alkaline Phosphatase 56 (39-117) U/L Total Protein 6.9 (6.5-8.0) g/dL Albumin 4.2 (3.5-5.0) g/dL Lipase 18 (8-78) U/L Urine Color Yellow Urine Appearance Cloudy Urine pH 7.5 (5.0-9.0) Ur Specific [place] 1.015 (1.005-1.025) Urine Protein Negative (Neg-Trace) mg/dL Urine Glucose (UA) Negative (Negative) mg/dL Urine Ketones Negative (Negative) mg/dL Urine Blood Negative (Negative) Urine Nitrite Negative (Negative) Ur Leukocyte Esterase Moderate (2+) H (Negative) Urine RBC 0-2 (0-2) /HPF Urine WBC 6-10 H (0-5) /HPF Ur Squamous Epith Cells >20 (0-2) /HPF Urine Bacteria 2+ (None Seen) Hyaline Casts 0-2 (0-2) /LPF Urine Test NEGATIVE (NEGATIVE) Chlam trachomat DNA PCR NOT DETECTED (Not Detect.) N.gonorrhoeae DNA (PCR) NOT DETECTED (Not Detect.) 05/01/25 Range/Units 16:16 WBC (4.8-10.8) X10*3/uL RBC (4.20-5.50) X10*6/uL Hgb (12.0-16.0) g/dl Hct (37.0-47.0) % MCV (80.0-98.0) fL MCH (27.0-33.0) pg MCHC (31.0-35.0) g/dl RDW (11.0-16.0) % Plt Count (160-400) X10*3/uL MPV (9.4-12.3) fL Immature Gran % (Auto) (0.0-0.4) % Neut % (Auto) (45-73) % Lymph % (Auto) (20-40) % [place] % (Auto) (2-11) % Eos % (Auto) (0-4) % Baso % (Auto) (0-2) % Lymph # (Auto) (1.2-4.9) X10*3/uL [place] # (Auto) (0.1-1.2) X10*3/uL Eos # (Auto) (0.0-0.4) X10*3/uL Baso # (Auto) (0.0-0.2) X10*3/uL Abs Immat Gran (auto) (0.00-0.03) X10*3/uL Absolute Neuts (auto) (2.0-8.3) x10*3/uL Absolute Nucleated RBC (0.0-0.012) X10*3/uL Nucleated RBC % (auto) (0.0-0.2) /100WBC Sodium (135-145) mmol/L Potassium (3.3-5.1) mmol/L Chloride (96-108) mmol/L Carbon Dioxide (22-29) mmol/L Anion Gap (12-20) BUN (9-16) mg/dL Creatinine (0.5-1.4) mg/dL Estim Creat Clear Calc Estimated GFR Random Glucose (60-115) mg/dL Lactic Acid 1.8 (0.5-2.0) mmol/L Calcium (8.4-10.2) mg/dL Magnesium (1.6-2.6) mg/dL Total Bilirubin (0.0-1.0) mg/dL Direct Bilirubin (0.0-0.5) mg/dL AST (5-31) U/L ALT (0-31) U/L Alkaline Phosphatase (39-117) U/L Total Protein (6.5-8.0) g/dL Albumin (3.5-5.0) g/dL Lipase (8-78) U/L Urine Color Urine Appearance Urine pH (5.0-9.0) Ur Specific [place] (1.005-1.025) Urine Protein (Neg-Trace) mg/dL Urine Glucose (UA) (Negative) mg/dL Urine Ketones (Negative) mg/dL Urine Blood (Negative) Urine Nitrite (Negative) Ur Leukocyte Esterase (Negative) Urine RBC (0-2) /HPF Urine WBC (0-5) /HPF Ur Squamous Epith Cells (0-2) /HPF Urine Bacteria (None Seen) Hyaline Casts (0-2) /LPF Urine Test (NEGATIVE) Chlam trachomat DNA PCR (Not Detect.) N.gonorrhoeae DNA (PCR) (Not Detect.) Independent Interpretation I performed an independent interpretation of an: CT Scan (CT scan of the abdomen pelvis was grossly negative) Radiology Impression Discussion of test interpretation with radiology: I have reviewed the radiologist's reading. Radiologist Impression: I reviewed radiology's reading of the ultrasound and CT scan External Record Review External record reviewed: Office record Chronic Conditions History of anxiety Discharge Plan Discharge Clinical Impression: Pyelonephritis Patient Disposition: Home, Self-Care Instructions: Kidney Infection (ED) Prescriptions: New cefuroxime axetil 500 mg tablet 500 mg PO BID 10 Days Qty: 20 0RF ondansetron 4 mg tablet,disintegrating 4 mg PO TID PRN (Reason: nausea and vomiting) 5 Days Qty: 10 0RF No Action esomeprazole magnesium [Nexium] 40 mg capsule,delayed release(DR/EC) 40 mg PO DAILY Qty: 30 5RF gowkwsdkvv-dfhgfdjzxtogb-wkrh [Fioricet] 50-300-40 mg capsule 1 cap PO Q4-6H PRN (Reason: pain) Qty: 14 0RF sumatriptan succinate 50 mg tablet See Rx Instructions .ROUTE .COMPLEX Qty: 14 0RF Rx Instructions: take 1 tab at onset of headache; if no relief may repeat 1 tab after at least 2 hrs; max = 4 tabs/24 hr cyclobenzaprine 10 mg tablet 10 mg PO TID PRN (Reason: muscle spasm) Qty: 14 0RF ondansetron 4 mg tablet,disintegrating 4 mg PO Q8H PRN (Reason: nausea and vomiting) Qty: 20 0RF gabapentin 100 mg capsule 100 mg PO BID Qty: 30 0RF ketorolac 10 mg tablet 10 mg PO TID PRN (Reason: pain) 5 Days Qty: 15 0RF lorazepam 0.5 mg tablet 0.5 mg PO BEDTIME PRN (Reason: anxiety) Qty: 10 0RF benzonatate 100 mg capsule 100 mg PO BID PRN (Reason: cough) Qty: 10 0RF meclizine 25 mg tablet 25 mg PO DAILY PRN (Reason: dizziness) Qty: 7 0RF cyclobenzaprine 10 mg tablet 10 mg PO TID PRN (Reason: muscle spasm) Qty: 20 0RF ketoconazole 2 % cream 1 appl topical BID Qty: 30 0RF doxycycline hyclate 100 mg tablet 100 mg PO BID 7 Days Qty: 14 0RF doxycycline hyclate 100 mg capsule 100 mg PO BID 14 Days Qty: 28 0RF mupirocin 2 % ointment 1 appl topical BID 5 Days Qty: 15 0RF hydroxyzine HCl 50 mg tablet 50 mg PO BID PRN (Reason: anxiety) sumatriptan succinate 50 mg tablet 50 mg PO Q2-4H PRN diltiazem HCl 120 mg capsule,extended release 24hr 120 mg PO DAILY meloxicam 15 mg tablet 15 mg PO DAILY Referrals: Simi Noland NP [Primary Care Provider] - 05/03/25 Print Language: [place]
[2025-05-01] MEDS: ondansetron HCL 4 MG/2 ML VIAL IVPUSH (16:24)
[2025-05-01] MEDS: cefTRIAXone sodium 1 GM VIAL IVPUSH (16:25)
[2025-05-01] MEDS: Ketorolac Tromethamine 15 MG/ML VIAL IVPUSH (16:25)
[2025-05-01] MEDS: 0.9 % Sodium Chloride 1,000 ML 999 ML IV (16:25)
[2025-05-01 16:38] LABS: Lactic Acid 1.8 mmol/L (0.5-2.0)
[2025-05-01 17:14] VITALS: BP 110/77; PULSE 70; RESP 20; TEMP 36.9; O2SAT 100
[2025-05-01 17:45] VITALS: BP 110/77; PULSE 70; RESP 20; TEMP 36.9; O2SAT 100
== END 2025-05-01 17:46 | disposition home or self-care (01) ==
PROVIDERS: Physician Assistant; Emergency Provider Emergency Medicine Emergency Medical Services; PCP Nurse Practitioner Family
DX: N12 Tubulo-interstitial nephritis, not specified as acute or chronic (principal); R10.2 Pelvic and perineal pain; F41.9 Anxiety disorder, unspecified; R35.0 Frequency of micturition; R10.32 Left lower quadrant pain; R30.0 Dysuria; R11.2 Nausea with vomiting, unspecified; F17.210 Nicotine dependence, cigarettes, uncomplicated; Z79.899 Other long term (current) drug therapy
CPT/HCPCS: 36415; 74176; 76775; 80048; 80076; 81001; 81025; 83605; 83690; 83735; 85025; 87040; 87086; 87491; 87591; 96361; 96374; 96375; 99285; J0696; J1885; J2405

== ENCOUNTER → 2025-05-01 11:50 | Outpatient (BNV) | payer OTHER, SELFPAY | PROVIDERS: PCP Nurse Practitioner Family; Visit Provider Radiology Diagnostic Radiology | DX: M51.34 Other intervertebral disc degeneration, thoracic region (principal); R10.9 Unspecified abdominal pain; N39.0 Urinary tract infection, site not specified | CPT/HCPCS: 74176; 76775 ==

== ENCOUNTER 2025-05-05 06:31 | Emergency (ER) | payer OTHER, SELFPAY ==
[2025-05-05 06:35] VITALS: BP 121/70; PULSE 77; RESP 18; TEMP 37.1; O2SAT 100; BMI 28.3
--- NOTE | 2025-05-05 07:04 | ED_ITS ---
HPI - General Adult General Chief complaint: General Medical Stated complaint: kidney infection/ concerns of blood Time Seen by Provider: 05/05/25 06:53 Source: patient and old records reviewed Mode of arrival: ambulatory Limitations: no limitations History of Present Illness ED Provider: RAJWINDER SEVILLA narrative: 39 yo female with PMH of anxiety, migraines just seen here on 05/[address] for [address] with neg CT scan for stone now here with symptoms of some cramping and noted hematuria as well as wiping. She has no fevers, no vomiting, no severe back pain. She has not had this before. She is taking the cefuroxime as prescribed. No hx of resistant UTIs complaint: hematuria Onset (ago): day(s) (1) Location: abdomen Radiation: non-radiation Severity: mild Quality: burning Pain Consistency: intermittent Relieving factors: none Exacerbating factors: other (urination) Associated symptoms: denies other symptoms Treatments prior to arrival: other (abs) Related Data Home Medications ?Medication ?Instructions ?Recorded ?Confirmed hydroxyzine HCl 50 mg tablet 50 mg PO BID PRN anxiety 04/23/23 diltiazem HCl 120 mg 120 mg PO DAILY 08/02/23 capsule,extended release 24 hr meloxicam 15 mg tablet 15 mg PO DAILY 01/19/24 sumatriptan succinate 50 mg tablet 50 mg PO Q2-4H PRN 03/01/24 Previous Rx's ?Medication ?Instructions ?Recorded gabapentin 100 mg capsule 100 mg PO BID #30 caps 04/19/23 ketorolac 10 mg tablet 10 mg PO TID PRN pain 5 days #15 08/26/23 tabs lorazepam 0.5 mg tablet 0.5 mg PO BEDTIME PRN anxiety #10 10/17/23 tabs benzonatate 100 mg capsule 100 mg PO BID PRN cough #10 caps 12/29/23 fmllsybiyw-moepjbtrjaaqf-rqejpkwz 1 cap PO Q4-6H PRN pain #14 caps 01/07/24 50 mg-300 mg-40 mg capsule (Fioricet) meclizine 25 mg tablet 25 mg PO DAILY PRN dizziness #7 01/26/24 tabs cyclobenzaprine 10 mg tablet 10 mg PO TID PRN muscle spasm #20 02/11/24 tabs esomeprazole magnesium 40 mg 40 mg PO DAILY #30 caps 03/30/24 capsule,delayed release (Nexium) ketoconazole 2 % topical cream 1 appl topical BID #30 grams 05/30/24 doxycycline hyclate 100 mg tablet 100 mg PO BID 7 days #14 tabs 07/19/24 doxycycline hyclate 100 mg capsule 100 mg PO BID 14 days #28 caps 07/27/24 mupirocin 2 % topical ointment 1 appl topical BID 5 days #15 grams 09/18/24 cyclobenzaprine 10 mg tablet 10 mg PO TID PRN muscle spasm #14 01/25/25 tabs ondansetron 4 mg disintegrating 4 mg PO Q8H PRN nausea and 01/25/25 tablet vomiting #20 tabs sumatriptan succinate 50 mg tablet See Rx Instructions PO .COMPLEX 01/25/25 #14 tabs cefuroxime axetil 500 mg tablet 500 mg PO BID pyelo 10 days #20 05/01/25 tabs ondansetron 4 mg disintegrating 4 mg PO TID PRN nausea and 05/01/25 tablet vomiting 5 days #10 tabs levofloxacin 750 mg tablet 750 mg PO DAILY #6 tabs 05/05/25 Allergies Allergy/AdvReac Type Severity Reaction Status Date / Time No Known Allergies Allergy Unknown NOT Verified 05/05/25 06:35 APPLICABLE Review of Systems 2 Review of Systems: Constitutional : No Fever, No Chills, No Fatigue ENT/Mouth : No sore throat, No Rhinorrhea Eyes: No Eye Pain, No Swelling, No Redness Cardiovascular : No Chest Pain, No SOB, No Dyspnea on Exertion Respiratory : No Cough, No Sputum Gastrointestinal : No Nausea, No Vomiting, No Diarrhea, No abdominal Pain Genitourinary : pos Dysuria, pos Urinary Frequency, pos Hematuria, Musculoskeletal : No joint pain, No Myalgias, No Joint Swelling Skin : No Skin Lesions, No rash Neuro : No Weakness, No Numbness, No Dizziness, no Headache All other systems reviewed and are negative PMFSH Past Medical History Medical History Lyme disease Heart palpitations Anxiety Cholecystectomy planned delivery delivered Surgical History S/P cholecystectomy Social History Social History Alcohol intake: current Alcohol intake frequency: other Patient Tobacco Use Status: Current everyday Tobacco user Tobacco use type: Smokeless Tobacco Substance Use Type: Marijuana Advance Directives: No Advance Directives Information Provided: Yes Physical Exam ED Vital Signs: Vital Signs - 24 hr 05/05/25 06:35 Temperature 98.7 F Pulse Rate 77 Respiratory Rate 18 Blood Pressure 121/70 Pulse Oximetry 100 Oxygen Delivery Method Room Air BMI result Body Mass Index 28.3 Appearance: Alert. Oriented X3. No acute distress. Eyes: Pupils equal, round and reactive to light. ENT: Pharynx normal. Neck: Normal inspection. Neck supple. CVS: Normal heart rate and rhythm. Pulses normal. Respiratory: No respiratory distress. Breath sounds normal. Abdomen: Soft and nontender. no CVA ttp Skin: Skin warm and dry. Normal skin color. Normal skin turgor. Extremities: No lower extremity edema. No calf ttp Neuro: Oriented X 3. No motor deficit. No sensory deficit. CN2-12 intact Medical Decision Making Medical Decision Making [facility] Narrative: 39 yo female with PMH of anxiety just seen here on 05/01 and started on ceftin for UTI - pyelo. Has still had some hematuria and symptoms. CT scan negative for stones. At this time will obtain repeat labs and based off symptoms start on levofloxacin - no fevers, no vomiting, no CVA ttp Differential Diagnosis Differential Diagnoses: The differential diagnosis associated with the presentation includes cystitis, UTI Admission/Observation Consideration of admission/observation: Escalation of care including admission/observation considered labs reassuring stable for DC Lab Data [facility] Lab Attestation statement: I reviewed the patient's lab results. 05/05/25 07:31 05/05/25 07:31 Labs: Lab Results 05/05/25 Range/Units 07:31 WBC 6.5 (4.8-10.8) X10*3/uL RBC 4.17 L (4.20-5.50) X10*6/uL Hgb 12.8 (12.0-16.0) g/dl Hct 37.9 (37.0-47.0) % MCV 90.9 (80.0-98.0) fL MCH 30.7 (27.0-33.0) pg MCHC 33.8 (31.0-35.0) g/dl RDW 13.1 (11.0-16.0) % Plt Count 211 (160-400) X10*3/uL MPV 10.3 (9.4-12.3) fL Immature Gran % (Auto) 0.3 (0.0-0.4) % Neut % (Auto) 62.2 (45-73) % Lymph % (Auto) 26.5 (20-40) % [place] % (Auto) 8.7 (2-11) % Eos % (Auto) 1.8 (0-4) % Baso % (Auto) 0.5 (0-2) % Lymph # (Auto) 1.7 (1.2-4.9) X10*3/uL [place] # (Auto) 0.6 (0.1-1.2) X10*3/uL Eos # (Auto) 0.1 (0.0-0.4) X10*3/uL Baso # (Auto) 0.0 (0.0-0.2) X10*3/uL Abs Immat Gran (auto) 0.02 (0.00-0.03) X10*3/uL Absolute Neuts (auto) 4.1 (2.0-8.3) x10*3/uL Absolute Nucleated RBC 0.000 (0.0-0.012) X10*3/uL Nucleated RBC % (auto) 0.0 (0.0-0.2) /100WBC Sodium 142 (135-145) mmol/L Potassium 4.9 (3.3-5.1) mmol/L Chloride 111 H (96-108) mmol/L Carbon Dioxide 24 (22-29) mmol/L Anion Gap 12 (12-20) BUN 11 (9-16) mg/dL Creatinine 0.76 (0.5-1.4) mg/dL Estim Creat Clear Calc 104.0 Estimated GFR > 60 Random Glucose 113 (60-115) mg/dL Calcium 9.1 (8.4-10.2) mg/dL Urine Color Yellow Urine Appearance Cloudy Urine pH 5.0 (5.0-9.0) Ur Specific [place] 1.025 (1.005-1.025) Urine Protein Trace (Neg-Trace) mg/dL Urine Glucose (UA) Negative (Negative) mg/dL Urine Ketones Negative (Negative) mg/dL Urine Blood Large (3+) H (Negative) Urine Nitrite Negative (Negative) Ur Leukocyte Esterase Small (1+) H (Negative) Urine RBC >20 H (0-2) /HPF Urine WBC 11-20 H (0-5) /HPF Ur Squamous Epith Cells 6-10 (0-2) /HPF Urine Bacteria None Seen (None Seen) Hyaline Casts 0-2 (0-2) /LPF External Record Review External record reviewed: Inpatient record, Outpatient record, Prior outpatient labs and Prior outpatient radiology Prescription Management I considered prescription management with: Antibiotic Discharge Plan Discharge Clinical Impression: Pyelonephritis Patient Disposition: Home, Self-Care Instructions: Kidney Infection (ED) Additional Instructions: your labs are reassuring today scant white blood cells in your urine CT scan from recent visit showed no stone drink plenty of fluids with this medication avoid strenuous activity it can cause tendon injury stop taking the cefuroxime Prescriptions: New levofloxacin 750 mg tablet 750 mg PO DAILY Qty: 6 0RF Rx Instructions: next dose 05/06 No Action esomeprazole magnesium [Nexium] 40 mg capsule,delayed release(DR/EC) 40 mg PO DAILY Qty: 30 5RF ykdvoppbbj-czdmbshhqbpqn-qefd [Fioricet] 50-300-40 mg capsule 1 cap PO Q4-6H PRN (Reason: pain) Qty: 14 0RF sumatriptan succinate 50 mg tablet See Rx Instructions .ROUTE .COMPLEX Qty: 14 0RF Rx Instructions: take 1 tab at onset of headache; if no relief may repeat 1 tab after at least 2 hrs; max = 4 tabs/24 hr cyclobenzaprine 10 mg tablet 10 mg PO TID PRN (Reason: muscle spasm) Qty: 14 0RF ondansetron 4 mg tablet,disintegrating 4 mg PO Q8H PRN (Reason: nausea and vomiting) Qty: 20 0RF cefuroxime axetil 500 mg tablet 500 mg PO BID 10 Days Qty: 20 0RF ondansetron 4 mg tablet,disintegrating 4 mg PO TID PRN (Reason: nausea and vomiting) 5 Days Qty: 10 0RF gabapentin 100 mg capsule 100 mg PO BID Qty: 30 0RF ketorolac 10 mg tablet 10 mg PO TID PRN (Reason: pain) 5 Days Qty: 15 0RF lorazepam 0.5 mg tablet 0.5 mg PO BEDTIME PRN (Reason: anxiety) Qty: 10 0RF benzonatate 100 mg capsule 100 mg PO BID PRN (Reason: cough) Qty: 10 0RF meclizine 25 mg tablet 25 mg PO DAILY PRN (Reason: dizziness) Qty: 7 0RF cyclobenzaprine 10 mg tablet 10 mg PO TID PRN (Reason: muscle spasm) Qty: 20 0RF ketoconazole 2 % cream 1 appl topical BID Qty: 30 0RF doxycycline hyclate 100 mg tablet 100 mg PO BID 7 Days Qty: 14 0RF doxycycline hyclate 100 mg capsule 100 mg PO BID 14 Days Qty: 28 0RF mupirocin 2 % ointment 1 appl topical BID 5 Days Qty: 15 0RF hydroxyzine HCl 50 mg tablet 50 mg PO BID PRN (Reason: anxiety) sumatriptan succinate 50 mg tablet 50 mg PO Q2-4H PRN diltiazem HCl 120 mg capsule,extended release 24hr 120 mg PO DAILY meloxicam 15 mg tablet 15 mg PO DAILY Print Language: Martiniquais
[2025-05-05 07:34] LABS: MANUAL DIFF FLAG NO
[2025-05-05 07:38] LABS: Appearance Urine Cloudy; Basophils Percent Auto 0.5 % (0-2); Color Urine Yellow; Eosinophils Absolute Auto 0.1 X10*3/uL (0.0-0.4); Eosinophils Percent Auto 1.8 % (0-4); Glucose Urine UA Negative (Negative); Hematocrit 37.9 % (37.0-47.0); Hemoglobin 12.8 g/dl (12.0-16.0); Imm Gran Abs Auto 0.02 X10*3/uL (0.00-0.03); Imm Gran Pct Auto 0.3 % (0.0-0.4); Leukocyte Esterase Urine Small (1+) (Negative); Lymphocytes Absolute Auto 1.7 X10*3/uL (1.2-4.9); Lymphocytes Percent Auto 26.5 % (20-40); Mean Corpuscular HGB Conc 33.8 g/dl (31.0-35.0); Mean Corpuscular Hemoglobin 30.7 pg (27.0-33.0); Mean Corpuscular Volume 90.9 fL (80.0-98.0); Mean Platelet Volume 10.3 fL (9.4-12.3); Monocytes Absolute Auto 0.6 X10*3/uL (0.1-1.2); Monocytes Percent Auto 8.7 % (2-11); Neutrophils Absolute Auto 4.1 x10*3/uL (2.0-8.3); Neutrophils Percent Auto 62.2 % (45-73); Nitrite Urine Negative (Negative); Platelet Count 211 X10*3/uL (160-400); Red Blood Count 4.17 X10*6/uL (4.20-5.50); Red Cell Distribution Width 13.1 % (11.0-16.0); Specific Gravity - Urine 1.025 (1.005-1.025); UMIC TRIGGER UACC YES; Urine Blood Large (3+) (Negative); Urine Ketones Negative (Negative); Urine Protein Trace mg/dL (Neg-Trace); White Blood Count 6.5 X10*3/uL (4.8-10.8)
[2025-05-05 07:42] LABS: Bacteria Urine None Seen (None Seen); Hyaline Casts Urine 0-2 /LPF (0-2); RBC Urine >20 /HPF (0-2); UACC Culture Trigger YES
[2025-05-05 07:51] LABS: Anion Gap 12 (12-20); Blood Urea Nitrogen 11 mg/dL (9-16); Calcium 9.1 mg/dL (8.4-10.2); Carbon Dioxide 24 mmol/L (22-29); Chloride 111 mmol/L (96-108); Estimated Glomerular Filt Rate > 60; Glucose Random 113 mg/dL (60-115); Potassium 4.9 mmol/L (3.3-5.1); Sodium 142 mmol/L (135-145)
[2025-05-05] MEDS: levoFLOXacin 750 MG TABLET PO (08:24)
[2025-05-05 08:33] VITALS: BP 121/70; PULSE 77; RESP 18; TEMP 37.1; O2SAT 100
== END 2025-05-05 08:35 | disposition home or self-care (01) ==
PROVIDERS: Emergency Provider Emergency Medicine; PCP Nurse Practitioner Family
DX: N12 Tubulo-interstitial nephritis, not specified as acute or chronic (principal)
CPT/HCPCS: 36415; 80048; 81001; 85025; 87086; 87147; 99283; 99284

== ENCOUNTER 2025-05-09 21:41 | Emergency (ER) | payer OTHER, SELFPAY ==
[2025-05-09 21:44] VITALS: BP 139/72; PULSE 87; RESP 20; TEMP 36.3; O2SAT 99; BMI 28.3
[2025-05-09 21:58] LABS: Appearance Urine Cloudy; Color Urine Dark Yellow; Glucose Urine UA Negative (Negative); Leukocyte Esterase Urine Trace (Negative); Nitrite Urine Negative (Negative); Specific Gravity - Urine >= 1.030 (1.005-1.025); UMIC TRIGGER UACC YES; Urine Blood Large (3+) (Negative); Urine Ketones 15 mg/dL (Negative); Urine Protein 30 (1+) mg/dL (Neg-Trace)
[2025-05-09 22:03] LABS: Bacteria Urine None Seen (None Seen); Hyaline Casts Urine 0-2 /LPF (0-2); RBC Urine >20 /HPF (0-2); UACC Culture Trigger YES
[2025-05-09 22:53] VITALS: BP 125/82; PULSE 88; RESP 16; TEMP 36.5; O2SAT 100
[2025-05-10 00:21] VITALS: BP 109/67; PULSE 78; RESP 18; TEMP 36.6; O2SAT 99
[2025-05-10 01:03] LABS: UPreg QC Valid YES; Urine Pregnancy NEGATIVE (NEGATIVE)
--- NOTE | 2025-05-10 01:17 | PC.NURSE ---
PT presents to the ED with complaints of suprapubic cramping, pain with urinations. Pt states that she showed her PCP her recent visit results and pcp did not feel that she had a kidney infection and UTI. PT reports that despite this she has been having urinary infection symptoms. She had only two pills of her recent antibiotic order left. She is also endorsing vaginal itching and rash . PT reports 6/10 pain, cramping in quality. Call garcia within reach. Plan of care ongoing.
[2025-05-10] MEDS: Ketorolac Tromethamine 15 MG/ML VIAL IM (02:07)
--- NOTE | 2025-05-10 03:04 | ED.FEMALEGU ---
HPI - Female Genitourinary General Chief complaint: Urogenital-Female Stated complaint: cramps, burning when urinating Time Seen by Provider: 05/10/25 00:31 Source: patient Limitations: no limitations History of Present Illness ED Provider: Jeimy Segura PA-C HPI Narrative: 39-year-old female presents with dysuria and vaginal itchiness. Patient states she has been on recent antibiotics for pyelonephritis; cefuroxime. Patient completed the course of the antibiotics, however she is still having dysuria. Pt returned to the emergency department on 05/05 for persisting symptoms, she was placed on Levaquin. Patient is still having dysuria, she now also has vaginal itchiness. Denies discharge, risk for STD. Patient also developed her. Today, she is having abdominal cramping. Denies nausea vomiting or fever Related Data Home Medications ?Medication ?Instructions ?Recorded ?Confirmed hydroxyzine HCl 50 mg tablet 50 mg PO BID PRN anxiety 04/23/23 diltiazem HCl 120 mg 120 mg PO DAILY 08/02/23 capsule,extended release 24 hr meloxicam 15 mg tablet 15 mg PO DAILY 01/19/24 sumatriptan succinate 50 mg tablet 50 mg PO Q2-4H PRN 03/01/24 Previous Rx's ?Medication ?Instructions ?Recorded gabapentin 100 mg capsule 100 mg PO BID #30 caps 04/19/23 ketorolac 10 mg tablet 10 mg PO TID PRN pain 5 days #15 08/26/23 tabs lorazepam 0.5 mg tablet 0.5 mg PO BEDTIME PRN anxiety #10 10/17/23 tabs benzonatate 100 mg capsule 100 mg PO BID PRN cough #10 caps 12/29/23 btcgqljrok-qcyzdioxltgab-jrfsigmt 1 cap PO Q4-6H PRN pain #14 caps 01/07/24 50 mg-300 mg-40 mg capsule (Fioricet) meclizine 25 mg tablet 25 mg PO DAILY PRN dizziness #7 01/26/24 tabs cyclobenzaprine 10 mg tablet 10 mg PO TID PRN muscle spasm #20 02/11/24 tabs esomeprazole magnesium 40 mg 40 mg PO DAILY #30 caps 03/30/24 capsule,delayed release (Nexium) ketoconazole 2 % topical cream 1 appl topical BID #30 grams 05/30/24 doxycycline hyclate 100 mg tablet 100 mg PO BID 7 days #14 tabs 07/19/24 doxycycline hyclate 100 mg capsule 100 mg PO BID 14 days #28 caps 07/27/24 mupirocin 2 % topical ointment 1 appl topical BID 5 days #15 grams 09/18/24 cyclobenzaprine 10 mg tablet 10 mg PO TID PRN muscle spasm #14 01/25/25 tabs ondansetron 4 mg disintegrating 4 mg PO Q8H PRN nausea and 01/25/25 tablet vomiting #20 tabs sumatriptan succinate 50 mg tablet See Rx Instructions PO .COMPLEX 01/25/25 #14 tabs cefuroxime axetil 500 mg tablet 500 mg PO BID pyelo 10 days #20 05/01/25 tabs ondansetron 4 mg disintegrating 4 mg PO TID PRN nausea and 05/01/25 tablet vomiting 5 days #10 tabs levofloxacin 750 mg tablet 750 mg PO DAILY #6 tabs 05/05/25 fluconazole 100 mg tablet 200 mg (2 x 100 mg) PO ONCE #2 tabs 05/10/25 (Diflucan) penicillin V potassium 500 mg 500 mg PO BID #19 tabs 05/10/25 tablet phenazopyridine 200 mg tablet 200 mg PO TID PRN pain #10 tabs 05/10/25 (Pyridium) Allergies Allergy/AdvReac Type Severity Reaction Status Date / Time No Known Allergies Allergy Unknown NOT Verified 05/09/25 21:45 APPLICABLE Review of Systems Review of Systems: Yes all other systems are reviewed and are negative Constitutional: Constitutional: Denies fatigue and Denies fever(s) Cardiovascular: Cardiovascular: Denies chest pain Gastrointestinal: Gastrointestinal: Denies abdominal pain, Reports GI cramping, Denies nausea and Denies vomiting Genitourinary: Genitourinary: Reports dysuria, Denies pelvic pain, Denies vaginal discharge, Denies vaginal odor and Reports vaginal pruritus Endocrine: Endocrine: Denies fatigue PMFSH Past Medical History Attestation statement: The following information was validated with the patient. Medical History Lyme disease Heart palpitations Anxiety Cholecystectomy planned delivery delivered Surgical History S/P cholecystectomy Social History Social History Alcohol intake: current Alcohol intake frequency: holidays/special occasions only Patient Tobacco Use Status: Current everyday Tobacco user Tobacco use type: Smokeless Tobacco Smoked in Last 30 Days: No Use of substances other than those prescribed or required for medical reasons: No Substance Use Type: Marijuana Advance Directives: No Advance Directives Information Provided: Yes Patient : No Physical Exam Vital Signs: Vital Signs: Last Vital Signs Temp 97.8 F 05/10/25 03:05 Pulse 78 05/10/25 03:05 Resp 18 05/10/25 03:05 BP 105/62 05/10/25 03:05 Pulse Ox 97 05/10/25 03:05 O2 Del Method Room Air 05/10/25 03:05 BMI result Body Mass Index 28.3 Const: Other: Alert Orientation/consciousness: patient oriented x3 Resp: Effort & Inspection: normal respiratory effort Cardio: Other: Normal peripheral perfusion GI: Other: Abdomen is soft nontender no guarding : Other: Deferred Skin: Other: Warm dry no rash Neuro: General: patient oriented x3, gait normal, no focal motor deficits and CN's II-XI intact bilaterally Psych: Other: Cooperative Medications Administered Discontinued Medications Generic Name Dose Route Start Last Admin Trade Name Elvisq PRN Reason Stop Dose Admin Fluconazole 150 mg 05/10/25 02:59 05/10/25 03:08 Fluconazole 150 Mg Tablet PO 05/10/25 03:00 150 mg ONCE ONE Administration Ketorolac Tromethamine 15 mg 05/10/25 01:28 05/10/25 02:07 Ketorolac Tromethamine 15 Mg/Ml Vial IM 05/10/25 01:29 15 mg ONCE ONE Administration Penicillin V Potassium 500 mg 05/10/25 02:58 05/10/25 03:08 Penicillin V Potassium 250 Mg Tablet PO 05/10/25 02:59 500 mg ONCE ONE Administration Phenazopyridine HCl 200 mg 05/10/25 03:38 05/10/25 03:56 Phenazopyridine Hcl 200 Mg Tablet PO 05/10/25 03:39 200 mg ONCE ONE Administration Medical Decision Making Medical Decision Making MDM Narrative: 39-year-old female presents with dysuria and vaginal itchiness. Patient states she has been on recent antibiotics for pyelonephritis; cefuroxime. Patient completed the course of the antibiotics, however she is still having dysuria. Pt returned to the emergency department on 05/05 for persisting symptoms, she was placed on Levaquin. Patient is still having dysuria, she now also has vaginal itchiness. Denies discharge, risk for STD. Patient also developed her. Today, she is having abdominal cramping. Denies nausea vomiting or fever No chronic issues History: Per patient I have considered the following differential diagnoses: Resistant urinary tract infection, vaginal candidal infection, STD, cervicitis, PID Plan: I have reviewed the patient's labs, urine culture from the reveals group B strep, she is not on an appropriate antibiotic. Her urine today is not improved in 5 days. I have advised the patient to discontinue the Levaquin, I am starting her on penicillin. She also has evidence of a yeast infection, we will give her Diflucan and Pyridium for her pain. The patient has a risk factors for STD, she is not having pelvic pain she has no discharge, I am deferring a pelvic exam as it is not clinically warranted at this time. Give Toradol for her period cramps I have independently reviewed the following tests: Labs: Not , urine still infected Lab Data Labs: Lab Results 05/09/25 Range/Units 21:52 Urine Color Dark Yellow Urine Appearance Cloudy Urine pH 5.0 (5.0-9.0) Ur Specific [place] >= 1.030 H (1.005-1.025) Urine Protein 30 (1+) H (Neg-Trace) mg/dL Urine Glucose (UA) Negative (Negative) mg/dL Urine Ketones 15 (Negative) mg/dL Urine Blood Large (3+) H (Negative) Urine Nitrite Negative (Negative) Ur Leukocyte Esterase Trace H (Negative) Urine RBC >20 H (0-2) /HPF Urine WBC 6-10 H (0-5) /HPF Ur Squamous Epith Cells 11-20 (0-2) /HPF Urine Bacteria None Seen (None Seen) Hyaline Casts 0-2 (0-2) /LPF Urine Test NEGATIVE (NEGATIVE) Discharge Plan Discharge Clinical Impression: Urinary tract infection, Candidiasis, vagina Patient Disposition: Home, Self-Care Instructions: Urinary Tract Infection in Women (ED), Yeast Infection (ED), Group B Strep (DC) Additional Instructions: You were found to have group B strep as the cause for your urinary tract infection, you are not on the correct antibiotic. Discontinue the use of the levofloxacin, start taking the penicillin, complete the course of antibiotic. You were also given a 1 time dose of antifungal medication called Diflucan, for vaginal yeast infection. I am also sending you with Pyridium, this is a medication to help with the urinary pain, take it as needed. Drink plenty of water. This medication will cause your urine to become bright orange, this is normal, it will resolve. I gave you an additional dose of Diflucan if you feel that your vaginal yeast infection is not resolving, you can repeat it in a week. Follow up with your primary care provider as needed. Prescriptions: New penicillin V potassium 500 mg tablet 500 mg PO BID Qty: 19 0RF phenazopyridine [Pyridium] 200 mg tablet 200 mg PO TID PRN (Reason: pain) Qty: 10 0RF fluconazole [Diflucan] 100 mg tablet 200 mg PO ONCE Qty: 2 0RF Rx Instructions: Take in a week if no improvement. No Action esomeprazole magnesium [Nexium] 40 mg capsule,delayed release(DR/EC) 40 mg PO DAILY Qty: 30 5RF fwrrnjcyxn-vwwrozyxuskro-rxwg [Fioricet] 50-300-40 mg capsule 1 cap PO Q4-6H PRN (Reason: pain) Qty: 14 0RF sumatriptan succinate 50 mg tablet See Rx Instructions .ROUTE .COMPLEX Qty: 14 0RF Rx Instructions: take 1 tab at onset of headache; if no relief may repeat 1 tab after at least 2 hrs; max = 4 tabs/24 hr cyclobenzaprine 10 mg tablet 10 mg PO TID PRN (Reason: muscle spasm) Qty: 14 0RF ondansetron 4 mg tablet,disintegrating 4 mg PO Q8H PRN (Reason: nausea and vomiting) Qty: 20 0RF cefuroxime axetil 500 mg tablet 500 mg PO BID 10 Days Qty: 20 0RF ondansetron 4 mg tablet,disintegrating 4 mg PO TID PRN (Reason: nausea and vomiting) 5 Days Qty: 10 0RF levofloxacin 750 mg tablet 750 mg PO DAILY Qty: 6 0RF Rx Instructions: next dose 05/06 gabapentin 100 mg capsule 100 mg PO BID Qty: 30 0RF ketorolac 10 mg tablet 10 mg PO TID PRN (Reason: pain) 5 Days Qty: 15 0RF lorazepam 0.5 mg tablet 0.5 mg PO BEDTIME PRN (Reason: anxiety) Qty: 10 0RF benzonatate 100 mg capsule 100 mg PO BID PRN (Reason: cough) Qty: 10 0RF meclizine 25 mg tablet 25 mg PO DAILY PRN (Reason: dizziness) Qty: 7 0RF cyclobenzaprine 10 mg tablet 10 mg PO TID PRN (Reason: muscle spasm) Qty: 20 0RF ketoconazole 2 % cream 1 appl topical BID Qty: 30 0RF doxycycline hyclate 100 mg tablet 100 mg PO BID 7 Days Qty: 14 0RF doxycycline hyclate 100 mg capsule 100 mg PO BID 14 Days Qty: 28 0RF mupirocin 2 % ointment 1 appl topical BID 5 Days Qty: 15 0RF hydroxyzine HCl 50 mg tablet 50 mg PO BID PRN (Reason: anxiety) sumatriptan succinate 50 mg tablet 50 mg PO Q2-4H PRN diltiazem HCl 120 mg capsule,extended release 24hr 120 mg PO DAILY meloxicam 15 mg tablet 15 mg PO DAILY Interventions: ED Discharge Assessment Last Done: 05/10/25 04:09 Print Language: Taiwanese
[2025-05-10 03:05] VITALS: BP 105/62; PULSE 78; RESP 18; TEMP 36.6; O2SAT 97
[2025-05-10] MEDS: Penicillin V Potassium 250 MG TABLET 500 MG PO (03:08)
[2025-05-10] MEDS: Fluconazole 150 MG TABLET PO (03:08)
[2025-05-10] MEDS: Phenazopyridine HCL 200 MG TABLET PO (03:56)
[2025-05-10 04:09] VITALS: BP 105/62; PULSE 78; RESP 18; TEMP 36.6; O2SAT 97
== END 2025-05-10 04:10 | disposition home or self-care (01) ==
PROVIDERS: Physician Assistant Medical; Emergency Provider Emergency Medicine; PCP Nurse Practitioner Family
DX: N39.0 Urinary tract infection, site not specified (principal); B95.7 Other staphylococcus as the cause of diseases classified elsewhere; B37.31 Acute candidiasis of vulva and vagina; R30.0 Dysuria
CPT/HCPCS: 81001; 81025; 87086; 87088; 87186; 96372; 99284; J1885

== ENCOUNTER 2025-05-14 12:33 | Emergency (ER) | payer OTHER, SELFPAY ==
[2025-05-14 12:54] VITALS: BP 128/60; PULSE 102; RESP 18; TEMP 36.9; O2SAT 99; BMI 27.8
--- NOTE | 2025-05-14 12:55 | ED_ITS ---
HPI - General Adult General Chief complaint: Abdominal Pain Stated complaint: Bacterial Infection Time Seen by Provider: 05/14/25 15:46 History of Present Illness ED Provider: Ric SEVILLA narrative: The patient is a 39-year-old female. She has been having a lot of problems with the urinary symptoms recently. This is her 4th ER visit this month because of symptoms related to possible urinary tract infections. She was here on May 01 of May 05, and May 10. On May 01 her workup included a CT scan of the abdomen and pelvis which showed no kidney stone or abscess. She had an abnormal urinalysis on that day and was prescribed a 10 day course of cefuroxime 500 mg b.i.d.. Her urine culture from that day grew [phone] colonies of mixed bacterial alejandra. She returned to the emergency room on May 05 because of abdominal cramping. At that visit she again had an abnormal urinalysis. Lab work was unremarkable. Her antibiotic was changed from cefuroxime 2 levofloxacin. Her urine culture from that day ended up growing [id number] colonies of strep agalactiae. She returned to the emergency room on May 10 complaining of dysuria and vaginal itchiness and some whitish vaginal discharge. At that visit she was prescribed pen VK for possible strep agalactiae urine infection and was also prescribed fluconazole for a possible vaginal yeast infection. Her urinalysis was still abnormal at at that visit. The urine culture from the visit on May 10 grew [phone] colonies of MRSA resistant to penicillin. Two days ago a prescription for doxycycline was phoned into her pharmacy. She took 2 doses of doxycycline yesterday and 1 dose this morning. She comes to the emergency room today because she feels that she has lymph nodes in her groins. Given all the ER visits she has had recently she was concerned about these lymph nodes and came back to the hospital. Her urinary symptoms are somewhat better at this point. Related Data Home Medications ?Medication ?Instructions ?Recorded ?Confirmed hydroxyzine HCl 50 mg tablet 50 mg PO BID PRN anxiety 04/23/23 diltiazem HCl 120 mg 120 mg PO DAILY 08/02/23 capsule,extended release 24 hr meloxicam 15 mg tablet 15 mg PO DAILY 01/19/24 sumatriptan succinate 50 mg tablet 50 mg PO Q2-4H PRN 03/01/24 Previous Rx's ?Medication ?Instructions ?Recorded gabapentin 100 mg capsule 100 mg PO BID #30 caps 04/19 ketorolac 10 mg tablet 10 mg PO TID PRN pain 5 days #15 08/26/23 tabs lorazepam 0.5 mg tablet 0.5 mg PO BEDTIME PRN anxiet y #10 10/17/23 tabs benzonatate 100 mg capsule 100 mg PO BID PRN cough #10 caps 12/29/23 poxrccbazd-zombsuwmbbezx-vpuxjcci 1 cap PO Q4-6H PRN p ain #14 caps 01/07/24 50 mg-300 mg-40 mg capsule (Fioricet) meclizine 25 mg tablet 25 mg PO DAILY PRN dizziness #7 01/26/24 tabs cyclobenzaprine 10 mg tablet 10 mg PO TID PRN muscle s pasm #20 02/11/24 tabs esomeprazole magnesium 40 mg 40 mg PO DAILY #30 caps 0 03/30/24 capsule,delayed release (Nexium) ketoconazole 2 % topical cream 1 appl topical BID #30 grams 05/30/24 doxycycline hyclate 100 mg tablet 100 mg PO BID 7 days #14 tabs 07/19/24 doxycycline hyclate 100 mg capsule 100 mg PO BID 14 da ys #28 caps 07/27/24 mupirocin 2 % topical ointment 1 appl topical BID 5 da ys #15 grams 09/18/24 cyclobenzaprine 10 mg tablet 10 mg PO TID PRN muscle s pasm #14 01/25/25 tabs ondansetron 4 mg disintegrating 4 mg PO Q8H PRN nausea and 01/25/25 tablet vomiting #20 tabs sumatriptan succinate 50 mg tablet See Rx Instructions PO .COMPLEX 01/25/25 #14 tabs cefuroxime axetil 500 mg tablet 500 mg PO BID pyelo 10 days #20 05/01/25 tabs ondansetron 4 mg disintegrating 4 mg PO TID PRN nausea and 05/01/25 tablet vomiting 5 days #10 tabs levofloxacin 750 mg tablet 750 mg PO DAILY #6 tabs fluconazole 100 mg tablet 200 mg (2 x 100 mg) PO ONCE #2 tabs 05/10/25 (Diflucan) penicillin V potassium 500 mg 500 mg PO BID #19 tabs 0 05/10/25 tablet phenazopyridine 200 mg tablet 200 mg PO TID PRN pain # 10 tabs 05/10/25 (Pyridium) doxycycline hyclate 100 mg tablet 100 mg PO BID 7 days #14 tabs 05/12/25 Allergies Allergy/AdvReac Type Severity Reaction Status Date / Time No Known Allergies Allergy Unknown NOT Verified 05/14/25 12:56 APPLICABLE Review of Systems 2 Review of Systems: Yes all other systems are reviewed and are negative [facility] Past Medical History Medical History Lyme disease Heart palpitations Anxiety Cholecystectomy planned delivery delivered Surgical History S/P cholecystectomy Social History Social History Alcohol intake: current Alcohol intake frequency: holidays/special occasions only Patient Tobacco Use Status: Current everyday Tobacco user Tobacco use type: Smokeless Tobacco Substance Use Type: Marijuana Physical Exam ED Vital Signs: Vital Signs - 24 hr 05/14/25 12:54 05/14/25 15:00 05/14/25 17:39 Temperature 98.4 F 98.2 F 98.1 F Pulse Rate 102 H 95 88 Respiratory Rate 18 16 18 Blood Pressure 128/60 116/77 106/69 Pulse Oximetry 99 97 99 Oxygen Delivery Method Room Air Room Air Room Air BMI result Body Mass Index 27.8 Const Other: The patient is a 39-year-old who was awake and alert, pleasant cooperative. She does not appear obviously acutely ill. Does not look uncomfortable. HENMT Other: The face is symmetrical. Mucous membranes moist. Eyes Other: Pupils are round equal, conjunctivae are clear, extraocular movements intact Neck Other: Patient has a surgical scar across the base of the lower anterior neck. This is hard on fully oriented and seems to stretch across the top of the sternal notch. Resp Effort & Inspection: normal respiratory effort Auscultation: clear to auscultation bilaterally Cardio Rate: regular rate Rhythm: regular rhythm Heart sounds: S1 normal heart sound present, S2 normal heart sound present and Murmur heart sound present ( No murmur) GI Other: the abdomen was soft and seemed nontender General: Yes no CVA tenderness Back/Spine/Pelvis Back: no CVA tenderness Skin General skin exam: no rashes or lesions noted Neuro Other: the patient is awake and alert with normal mental status. Cranial nerves are grossly intact. She seems to have intact strength in both ribs. She has intact reflexes in both arms. seems to have normal strength in all extremities. No pronator drift. Steady gait. Extrem Other: There is no calf swelling or tenderness. No asymmetry. No peripheral edema. Course Course Course Narrative: This is an RME: Additional HPI, ROS, PE not included below will be deferred to primary provider. RME assessment and note performed by: Brisa Hines PA-C This is a 34-pfyf-duc-female who presents to the ER with complaints of lower abdominal pain. Patient reports that she was seen here recently and was diagnosed with a UTI that grew out MRSA. She has been taking the prescribed doxycycline however states that she awoke this morning with lower abdominal pain. Patient has been seen here multiple times over the course of this last month for the same. Denies any chance of or STI. Plan: Labs, UA, further ER evaluation needed. Medical Decision Making Medical Decision Making MDM Narrative: The patient is a 39-year-old female who comes to the emergency room because she was concerned that she might have developed some swollen lymph nodes in both of her inguinal canals. On exam she does seem to have some possible adenopathy in the inguinal creases bilaterally. Patient does not look apparently ill. She looks quite well. She started taking doxycycline yesterday. This seems to be the correct antibiotic for her most recent urine culture. Her labs are unremarkable. In addition to blood testing and urinalysis the patient also submitted a dirty urine for a non clean catch specimen which was sent for GC and chlamydia testing. These were both negative. Additionally the patient self swab for bacterial vaginosis, yeast, and Trichomonas. These tests were negative as well. The patient was reassured that her workup seems largely unremarkable. She will be advised to continue the doxycycline. She should follow up with her PCP. Also, since she seems who had multiple ER visits and variety of abnormal urine culture results -review reasonable for her to follow-up with urology as well. Lab Data 05/14/25 14:07 05/14/25 14:07 Labs: Lab Results 05/14/25 05/14/25 05/14/25 Range/Units 14:07 16:41 16:54 WBC 10.3 (4.8-10.8) X10*3/uL RBC 4.58 (4.20-5.50) X10*6/uL Hgb 13.8 (12.0-16.0) g/dl Hct 42.0 (37.0-47.0) % MCV 91.7 (80.0-98.0) fL MCH 30.1 (27.0-33.0) pg MCHC 32.9 (31.0-35.0) g/dl RDW 12.7 (11.0-16.0) % Plt Count 244 (160-400) X10*3/uL MPV 10.7 (9.4-12.3) fL Immature Gran % (Auto) 0.3 (0.0-0.4) % Neut % (Auto) 77.1 H (45-73) % Lymph % (Auto) 13.1 L (20-40) % [place] % (Auto) 7.7 (2-11) % Eos % (Auto) 1.3 (0-4) % Baso % (Auto) 0.5 (0-2) % Lymph # (Auto) 1.3 (1.2-4.9) X10*3/uL [place] # (Auto) 0.8 (0.1-1.2) X10*3/uL Eos # (Auto) 0.1 (0.0-0.4) X10*3/uL Baso # (Auto) 0.1 (0.0-0.2) X10*3/uL Abs Immat Gran (auto) 0.03 (0.00-0.03) X10*3/uL Absolute Neuts (auto) 7.9 (2.0-8.3) x10*3/uL Absolute Nucleated RBC 0.000 (0.0-0.012) X10*3/uL Nucleated RBC % (auto) 0.0 (0.0-0.2) /100WBC Sodium 144 (135-145) mmol/L Potassium 5.2 H (3.3-5.1) mmol/L Chloride 109 H (96-108) mmol/L Carbon Dioxide 26 (22-29) mmol/L Anion Gap 14 (12-20) BUN 9 (9-16) mg/dL Creatinine 0.84 (0.5-1.4) mg/dL Estim Creat Clear Calc 96.7 Estimated GFR > 60 Random Glucose 99 (60-115) mg/dL Calcium 9.7 D (8.4-10.2) mg/dL Total Bilirubin 1.0 (0.0-1.0) mg/dL Direct Bilirubin 0.3 (0.0-0.5) mg/dL AST 16 (5-31) U/L ALT 8 (0-31) U/L Alkaline Phosphatase 66 (39-117) U/L C-Reactive Protein 1.25 H (< or = 0.50) mg/dL Total Protein 7.1 (6.5-8.0) g/dL Albumin 4.2 (3.5-5.0) g/dL Beta HCG, Quant < 2 mIU/mL Urine Color Yellow Urine Appearance Hazy Urine pH >= 9.0 (5.0-9.0) Ur Specific [place] 1.020 (1.005-1.025) Urine Protein 30 (1+) H (Neg-Trace) mg/dL Urine Glucose (UA) Negative (Negative) mg/dL Urine Ketones Trace (Negative) mg/dL Urine Blood Moderate (2+) H (Negative) Urine Nitrite Negative (Negative) Ur Leukocyte Esterase Large (3+) H (Negative) Urine RBC 0-2 (0-2) /HPF Urine WBC 21-50 (0-5) /HPF Ur Squamous Epith Cells >20 (0-2) /HPF Urine Bacteria 4+ (None Seen) Hyaline Casts 3-5 (0-2) /LPF Chlam trachomat DNA PCR NOT DETECTED (Not Detect.) N.gonorrhoeae DNA (PCR) NOT DETECTED (Not Detect.) T. vaginalis (PCR) NOT DETECTED (Not Detect) Bact vaginosis (PCR) NEGATIVE (Negative) C. krusei/glabrata (PCR) NOT DETECTED (Not Detect) Paula group (PCR) NOT DETECTED (Not Detect) Discharge Plan Discharge Clinical Impression: Superficial inguinal lymphadenopathy Patient Disposition: Home, Self-Care Additional Instructions: Your testing today is quite reassuring from the point of view of any systemic infections. Some additional tests are still being run. I think it is safe for you to go home. We will contact you if there are any concerning additional results. Please continue the doxycycline you recently started. Please contact your regular doctor's office for a follow up appointment soon to discuss these symptoms further. Also, since the results of your urine cultures has been so variable, I think it would be reasonable for you to see a urologist. Please contact the urology office for a follow up appointment as well. Return to the emergency room if significantly worse. Prescriptions: No Action esomeprazole magnesium [Nexium] 40 mg capsule,delayed release(DR/EC) 40 mg PO DAILY Qty: 30 5RF zutpywvirt-qdglvkausmjnj-cwsu [Fioricet] 50-300-40 mg capsule 1 cap PO Q4-6H PRN (Reason: pain) Qty: 14 0RF sumatriptan succinate 50 mg tablet See Rx Instructions .ROUTE .COMPLEX Qty: 14 0RF Rx Instructions: take 1 tab at onset of headache; if no relief may repeat 1 tab after at least 2 hrs; max = 4 tabs/24 hr cyclobenzaprine 10 mg tablet 10 mg PO TID PRN (Reason: muscle spasm) Qty: 14 0RF ondansetron 4 mg tablet,disintegrating 4 mg PO Q8H PRN (Reason: nausea and vomiting) Qty: 20 0RF cefuroxime axetil 500 mg tablet 500 mg PO BID 10 Days Qty: 20 0RF ondansetron 4 mg tablet,disintegrating 4 mg PO TID PRN (Reason: nausea and vomiting) 5 Days Qty: 10 0RF levofloxacin 750 mg tablet 750 mg PO DAILY Qty: 6 0RF Rx Instructions: next dose 05/06 penicillin V potassium 500 mg tablet 500 mg PO BID Qty: 19 0RF phenazopyridine [Pyridium] 200 mg tablet 200 mg PO TID PRN (Reason: pain) Qty: 10 0RF fluconazole [Diflucan] 100 mg tablet 200 mg PO ONCE Qty: 2 0RF Rx Instructions: Take in a week if no improvement. doxycycline hyclate 100 mg tablet 100 mg PO BID 7 Days Qty: 14 0RF gabapentin 100 mg capsule 100 mg PO BID Qty: 30 0RF ketorolac 10 mg tablet 10 mg PO TID PRN (Reason: pain) 5 Days Qty: 15 0RF lorazepam 0.5 mg tablet 0.5 mg PO BEDTIME PRN (Reason: anxiety) Qty: 10 0RF benzonatate 100 mg capsule 100 mg PO BID PRN (Reason: cough) Qty: 10 0RF meclizine 25 mg tablet 25 mg PO DAILY PRN (Reason: dizziness) Qty: 7 0RF cyclobenzaprine 10 mg tablet 10 mg PO TID PRN (Reason: muscle spasm) Qty: 20 0RF ketoconazole 2 % cream 1 appl topical BID Qty: 30 0RF doxycycline hyclate 100 mg tablet 100 mg PO BID 7 Days Qty: 14 0RF doxycycline hyclate 100 mg capsule 100 mg PO BID 14 Days Qty: 28 0RF mupirocin 2 % ointment 1 appl topical BID 5 Days Qty: 15 0RF hydroxyzine HCl 50 mg tablet 50 mg PO BID PRN (Reason: anxiety) sumatriptan succinate 50 mg tablet 50 mg PO Q2-4H PRN diltiazem HCl 120 mg capsule,extended release 24hr 120 mg PO DAILY meloxicam 15 mg tablet 15 mg PO DAILY Referrals: [facility] [place] [facility] [Provider Group, Urology] Referral Note: Multiple ER visits for urinary symptoms Simi Noland NP [Primary Care Provider, Internal Medicine] Referral Note: Multiple UTIs and ER visits Interventions: ED Discharge Assessment Last Done: 05/14/25 17:39 Discharge Date/Time: 05/14/25 17:42 Print Language: Congolese
[2025-05-14 14:11] LABS: MANUAL DIFF FLAG NO
[2025-05-14 14:13] LABS: Basophils Absolute Auto 0.1 X10*3/uL (0.0-0.2); Basophils Percent Auto 0.5 % (0-2); Eosinophils Absolute Auto 0.1 X10*3/uL (0.0-0.4); Eosinophils Percent Auto 1.3 % (0-4); Hemoglobin 13.8 g/dl (12.0-16.0); Imm Gran Abs Auto 0.03 X10*3/uL (0.00-0.03); Imm Gran Pct Auto 0.3 % (0.0-0.4); Lymphocytes Absolute Auto 1.3 X10*3/uL (1.2-4.9); Lymphocytes Percent Auto 13.1 % (20-40); Mean Corpuscular HGB Conc 32.9 g/dl (31.0-35.0); Mean Corpuscular Hemoglobin 30.1 pg (27.0-33.0); Mean Corpuscular Volume 91.7 fL (80.0-98.0); Mean Platelet Volume 10.7 fL (9.4-12.3); Monocytes Absolute Auto 0.8 X10*3/uL (0.1-1.2); Monocytes Percent Auto 7.7 % (2-11); Neutrophils Absolute Auto 7.9 x10*3/uL (2.0-8.3); Neutrophils Percent Auto 77.1 % (45-73); Platelet Count 244 X10*3/uL (160-400); Red Blood Count 4.58 X10*6/uL (4.20-5.50); Red Cell Distribution Width 12.7 % (11.0-16.0); White Blood Count 10.3 X10*3/uL (4.8-10.8)
[2025-05-14 14:16] LABS: Appearance Urine Hazy; Color Urine Yellow; Glucose Urine UA Negative (Negative); Leukocyte Esterase Urine Large (3+) (Negative); Nitrite Urine Negative (Negative); PH >= 9.0 (5.0-9.0); UMIC TRIGGER UACC YES; Urine Blood Moderate (2+) (Negative); Urine Ketones Trace mg/dL (Negative); Urine Protein 30 (1+) mg/dL (Neg-Trace)
[2025-05-14 14:27] LABS: Bacteria Urine 4+ (None Seen); RBC Urine 0-2 /HPF (0-2); Squamous Epithelial Cell Urine >20 /HPF (0-2); UACC Culture Trigger YES; WBC Urine 21-50 /HPF (0-5)
[2025-05-14 14:42] LABS: Alanine Aminotransferase 8 U/L (0-31); Albumin Level 4.2 g/dL (3.5-5.0); Alkaline Phosphatase 66 U/L (39-117); Anion Gap 14 (12-20); Aspartate Amino Transferase 16 U/L (5-31); Bilirubin Direct 0.3 mg/dL (0.0-0.5); Blood Urea Nitrogen 9 mg/dL (9-16); Calcium 9.7 mg/dL (8.4-10.2); Carbon Dioxide 26 mmol/L (22-29); Chloride 109 mmol/L (96-108); Creatinine Clr Calc Pharmacy 96.7; Estimated Glomerular Filt Rate > 60; Glucose Random 99 mg/dL (60-115); Potassium 5.2 mmol/L (3.3-5.1); Sodium 144 mmol/L (135-145); Total Protein 7.1 g/dL (6.5-8.0)
[2025-05-14 14:46] LABS: HCG Quantitative < 2 mIU/mL
[2025-05-14 15:00] VITALS: BP 116/77; PULSE 95; RESP 16; TEMP 36.8; O2SAT 97
[2025-05-14 16:06] LABS: C Reactive Protein 1.25 mg/dL (< or = 0.50)
[2025-05-14 17:39] VITALS: BP 106/69; PULSE 88; RESP 18; TEMP 36.7; O2SAT 99
[2025-05-14 18:09] LABS: Bacterial Vaginosis PCR NEGATIVE (Negative); Candida Group PCR NOT DETECTED (Not Detect); Candida glab krusei PCR NOT DETECTED (Not Detect); Trichomonas vaginalis PCR NOT DETECTED (Not Detect)
[2025-05-14 18:41] LABS: CT PCR NOT DETECTED (Not Detect.); NG PCR NOT DETECTED (Not Detect.)
== END 2025-05-14 17:42 | disposition home or self-care (01) ==
PROVIDERS: Physician Assistant Medical; Emergency Provider Emergency Medicine; PCP Nurse Practitioner Family
DX: R59.1 Generalized enlarged lymph nodes (principal); R10.2 Pelvic and perineal pain; Z87.440 Personal history of urinary (tract) infections; Z79.899 Other long term (current) drug therapy; F17.210 Nicotine dependence, cigarettes, uncomplicated
CPT/HCPCS: 36415; 80048; 80076; 81001; 81515; 84702; 85025; 86140; 87086; 87491; 87591; 99283; 99284

== ENCOUNTER 2025-05-22 07:35 | Outpatient (AMB) | payer OTHER, SELFPAY ==
--- NOTE | 2025-05-22 07:35 | A.OFFVIS_ITS ---
Intake Visit Reasons: Uti/ infections Intake Note: Patient presents today for tele visit recurrent uti Urology Medications: none Blood Thinner: none Customer Assistant Required: No Allergies No Known Allergies Allergy (Unknown, Verified 05/22/25 07:57) NOT APPLICABLE Medication List - Last Reconciled 05/22/25 by SCOTT Mcclendon-KHAI fzjlshqmkr-zewrojeprrbpe-obpc 50-300-40 mg (Fioricet) 1 cap PO Q4-6H PRN cyclobenzaprine 10 mg PO TID PRN hydroxyzine HCl 50 mg PO BID PRN ketorolac 10 mg PO TID PRN 5 days lorazepam 0.5 mg PO BEDTIME PRN meclizine 25 mg PO DAILY PRN propranolol 10 mg PO BID HPI Comments Details: Nicole is a pleasant 39 year old female patient of Dr. Noland. She has a past medical history of Lyme disease, heart palpitations, and anxiety. She is being follow-up on today via video telehealth. In discussion with the patient today she reports having seeked emergency room care multiple times approximately 2-3 weeks ago for ongoing abdominal cramping and hematuria. She reports having had renal ultrasound and CT imaging. These results were reviewed and communicated with the patient today. CT 05/16 there is no hydronephrosis bilaterally. The ureters are nondilated. There is a punctate calcification near the distal left ureter. This calcification was present on prior examination and in most consistent with a vascular/non ureteral calcification per radiology report. Renal ultrasound 05/16 essentially unremarkable renal ultrasound. She reports having been given multiple different antibiotics however most recent antibiotic which was doxycycline she has since completed and has been feeling well. In review of patient's chart it appears urine culture 05/16 Strep agalactiae (Grp B) and 05/16 Methicillin Res Staph Aureus. We did discuss potential causes of urinary tract infections as well as importance of following up as planned as patient was last seen 08/14 in recommendations were made for 1 year follow-up however this was not completed. She currently denies any bothersome urinary issues or concerns. She denies urinary urgency, urinary frequency, incontinence, nocturia, hematuria, dysuria, foul smelling urine, changes to urinary stream, fever, and or chills. She is happy with her current voiding parameters. She does endorse to not be drinking enough water daily. We did discussed the importance in doing so in relation to history of nephrolithiasis as well as urinary tract infections. She denies any issues with her bowels. She is sexually active. She otherwise offers no other issues or concerns at this time. [facility] Medical History Lyme disease Heart palpitations Anxiety Cholecystectomy planned delivery delivered Surgical History S/P cholecystectomy Social History Alcohol intake: current Alcohol intake frequency: holidays/special occasions only Patient Tobacco Use Status: Current everyday Tobacco user Tobacco use type: Smokeless Tobacco Substance Use Type: Marijuana Review of Systems Const All systems reviewed & are unremarkable except as noted in HPI and below Physical Exam Const General: cooperative, healthy appearing, comfortable, no acute distress, well developed, alert and awake Orientation/consciousness: patient oriented x3 Resp Effort & Inspection: normal respiratory effort and able to speak in complete sentences Neuro General: patient oriented x3 Psych Appearance: well kempt Mental Status: mental status grossly normal Speech and movement: Clear speech present Affect: normal affect Attitude: cooperative Thought process: Normal thought process present Thought content: Normal thought content present Insight: Fair insight present (Psych) Judgement: Fair judgement present (Psych) Telehealth Telehealth Telehealth Platform: [facility] Location of provider rendering services: practice address Location of patient: address on file Patient Identification confirmed using: Name, : Yes Telehealth method: video Patient verbally consented to treatment: Yes Patient verbally consented to billing insurance company: Yes Patient informed of any privacy concerns related to visit: Yes Minutes spent on Phone/Video with Pt.: 20 Results Reviewed Results Reviewed: Date of Service: 05/01/25 Procedure(s): CT abdomen pelvis wo IV con FINDINGS: LUNG BASES: The visualized lung bases are unremarkable. LIVER, GALLBLADDER, AND BILIARY TREE: The liver is normal in size, shape, and attenuation. No focal hepatic lesion or biliary ductal dilatation is present. There are clips status post cholecystectomy. PANCREAS: Unremarkable. SPLEEN: Unremarkable. ADRENAL GLANDS: Unremarkable. KIDNEYS AND URETERS: There is no hydronephrosis. The ureters are nondilated. There is a punctate calcification (series 3, image 81/94) near the distal left ureter. This calcific lesions present on the prior examination and is most consistent with a vascular/non-ureteral calcification. BLADDER: Unremarkable. GASTROINTESTINAL TRACT: The small and large bowel are unremarkable. The appendix is unremarkable. ABDOMINAL WALL: No significant hernia is appreciated. LYMPH NODES: Normal. VASCULAR: Unremarkable. PELVIC VISCERA: Uterus unremarkable. There is a mature follicle in the right ovary. OSSEOUS STRUCTURES: Degenerative endplate changes are noted in the lower thoracic spine. IMPRESSION: No hydronephrosis or renal calculi. 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 Assessment & Plan Assessment & Plan (1) Nephrolithiasis: Code(s): N20.0 - Calculus of kidney Category: Medical Plan Recent CT results reviewed with the patient today; as noted above. She currently denies any bothersome urinary issues or concerns. She reports be happy with current voiding parameters. Discussed UTI prevention with D mannose supplement, vitamin-C, increasing fluid intake, behavioral therapy with timed voiding, perineal hygiene and postcoital voiding, and management of constipation with stool softeners and increased fiber intake. Will obtain renal ultrasound. Punctate calcification as well as urinary tract infection; we discussed further treatment options and risks and benefits of these treatment options. Will continue with surveillance monitoring. Follow-up in 3-4 months with imaging and PVR; or sooner with any issues, concerns, and or questions. Orders: Orders US renal BI 2 Months N20.0 - Calculus of kidney Patient Instructions: The patient had an opportunity to ask questions regarding the treatment plan. All questions were answered. Physical exam, labs, and imaging were discussed and reviewed in detail. As well as risks, benefits, and discussion of treatment choices. No major barriers to understanding were identified. The patient expressed understanding and agreement with the above treatment plan. The patient was made aware they should contact our office by phone for worsening of their current condition, the appearance of new symptoms, or with any questions or concerns. Compliance is encouraged with any medications and follow up testing that is ordered. It is a privilege to be allowed the opportunity to participate in? your urological care.? Again, if you have any questions or concerns If you have any questions or concerns please do not hesitate to contact me. The office is [phone]. This note is constructed using voice recognition software. While every effort has been made to ensure accuracy pipeline dispatcher errors may have been included. Yours sincerely, SCOTT Mcclendon-KHAI Coding Level of Care Code Tele Est Pt Level 3 (19398) Diagnoses Nephrolithiasis N20.0
== END 2025-05-22 09:20 | disposition home or self-care (01) ==
LOC: HO.HUSH 07:35
PROVIDERS: PCP Nurse Practitioner Family; Visit Provider Nurse Practitioner Family
DX: N20.0 Calculus of kidney (principal)
CPT/HCPCS: 99213

== ENCOUNTER 2025-10-10 12:05 | Emergency (ER) | payer OTHER, SELFPAY ==
[2025-10-10 12:40] VITALS: BP 133/72; PULSE 87; RESP 18; TEMP 36.6; O2SAT 98; BMI 29.3
--- NOTE | 2025-10-10 12:41 | ED.FEMALEGU ---
HPI - Female Genitourinary General Chief complaint: GI Bleed Stated complaint: Urinary Symptoms Time Seen by Provider: 10/10/25 14:48 Source: patient Mode of arrival: ambulatory Limitations: no limitations History of Present Illness ED Provider: Dr. Castro [facility] Narrative: This is a 40-year-old female presented hospital today for evaluation of bright red rectal bleeding. Patient stated that has been going on today. She had a hard stool initially and noticed blood in the toilet bowl. She she then had another bowel movement and noticed blood again. Patient is not complaining any abdominal pain. Denies any rectal pain. However she did endorse nausea prior to this event. No history of abdominal surgeries in the past. Related Data Home Medications ?Medication ?Instructions ?Recorded ?Confirmed hydroxyzine HCl 50 mg tablet 50 mg PO BID PRN anxiety 04/23/23 05/22/25 propranolol 10 mg tablet 10 mg PO BID 05/22/25 05/22/25 Previous Rx's ?Medication ?Instructions ?Recorded ketorolac 10 mg tablet 10 mg PO TID PRN pain 5 days #15 08/26/23 tabs lorazepam 0.5 mg tablet 0.5 mg PO BEDTIME PRN anxiety #10 10/17/23 tabs csajqtnqav-ewfunzwlrtytb-stulevsw 1 cap PO Q4-6H PRN pain #14 caps 01/07/24 50 mg-300 mg-40 mg capsule (Fioricet) meclizine 25 mg tablet 25 mg PO DAILY PRN dizziness #7 01/26/24 tabs cyclobenzaprine 10 mg tablet 10 mg PO TID PRN muscle spasm #14 01/25/25 tabs sennosides 8.6 mg tablet (senna) 8.6 mg PO DAILY 14 days #14 tabs 10/10/25 Allergies Allergy/AdvReac Type Severity Reaction Status Date / Time No Known Allergies Allergy Unknown NOT Verified 10/10/25 12:41 APPLICABLE Review of Systems Review of Systems: Pertinent review of systems as mentioned in [facility]. All other system otherwise negative. [facility] Past Medical History [facility] Narrative: Medical history as mentioned in [facility] Medical History Lyme disease Heart palpitations Anxiety Cholecystectomy planned delivery delivered Surgical History S/P cholecystectomy Social History Social History Alcohol intake: current Alcohol intake frequency: holidays/special occasions only Patient Tobacco Use Status: Current everyday Tobacco user Tobacco use type: Smokeless Tobacco Substance Use Type: Marijuana Advance Directives: No Advance Directives Information Provided: Yes Physical Exam Exam: Exam: General: Pleasant, no distress, interacting appropriately Head: Normacephalic, atraumatic ENT: oral mucosa moist, neck supple, no tracheal deviation Gastrointestinal: Soft, non distended, non tender, non guarding : On rectal exam the patient does have skin tags under the external rectum. I did do a internal rectal exam. No obvious blood on examination. No signs of anal fissure on examination Neurological: Awake and alert, no facial droop noted Skin: Warm and dry Psychiatric: Appropriate mood and thoughts Vital Signs: Vital Signs: Last Vital Signs Temp 97.8 F 10/10/25 12:40 Pulse 87 10/10/25 12:40 Resp 18 10/10/25 12:40 BP 133/72 10/10/25 12:40 Pulse Ox 98 10/10/25 12:40 O2 Del Method Room Air 10/10/25 12:40 BMI result Body Mass Index 29.3 Course Course Course Narrative: This is a Rapid Medical Exam performed in triage by Mikaela Andujar PA-C. Full HPI, ROS and PE to be performed by primary ED provider. 40 yo F w/pmhx anxiety presenting to the ED c/o bright red bloody BM x today (2 episodes). admits to some abd discomfort. +N/V last week - denies at present. denies rectal pain PE: NAD, nontoxic appearing, ambulating with steady gait Plan: labs, UA, occult stool Medical Decision Making Medical Decision Making MDM Narrative: 40-year-old female presented hospital today for bright red rectal bleeding. On rectal exam I did not appreciate any blood in the rectal vault. No sign of anal fissure no sign of hemorrhoids. Patient is not actively bleeding at this time. Hemoglobin does not show any significant anemia. We will plan to discharge patient at this time. The patient does have potassium of 5.4. I suspect this is secondary to dehydration. Encouraged the patient to stay well hydrated. And follow up for repeat lab draw. Differential Diagnosis Differential Diagnoses: The differential diagnosis associated with the presentation includes Anemia, Hemorrhoids, Diverticular bleed, anal fissure Lab Data MDM Lab Attestation statement: I reviewed the patient's lab results. 10/10/25 12:56 10/10/25 12:56 Labs: Lab Results 10/10/25 Range/Units 12:56 WBC 6.4 (4.8-10.8) X10*3/uL RBC 4.82 (4.20-5.50) X10*6/uL Hgb 14.2 (12.0-16.0) g/dl Hct 43.6 (37.0-47.0) % MCV 90.5 (80.0-98.0) fL MCH 29.5 (27.0-33.0) pg MCHC 32.6 (31.0-35.0) g/dl RDW 13.7 (11.0-16.0) % Plt Count 288 (160-400) X10*3/uL MPV 10.6 (9.4-12.3) fL Immature Gran % (Auto) 0.5 H (0.0-0.4) % Neut % (Auto) 59.0 (45-73) % Lymph % (Auto) 29.7 (20-40) % [place] % (Auto) 9.6 (2-11) % Eos % (Auto) 0.6 (0-4) % Baso % (Auto) 0.6 (0-2) % Lymph # (Auto) 1.9 (1.2-4.9) X10*3/uL [place] # (Auto) 0.6 (0.1-1.2) X10*3/uL Eos # (Auto) 0.0 (0.0-0.4) X10*3/uL Baso # (Auto) 0.0 (0.0-0.2) X10*3/uL Abs Immat Gran (auto) 0.03 (0.00-0.03) X10*3/uL Absolute Neuts (auto) 3.8 (2.0-8.3) x10*3/uL Absolute Nucleated RBC 0.000 (0.0-0.012) X10*3/uL Nucleated RBC % (auto) 0.0 (0.0-0.2) /100WBC Sodium 141 (135-145) mmol/L Potassium 5.4 H (3.3-5.1) mmol/L Chloride 109 H (96-108) mmol/L Carbon Dioxide 28 (22-29) mmol/L Anion Gap 9 L (12-20) BUN 9 (9-16) mg/dL Creatinine 0.69 (0.5-1.4) mg/dL Estim Creat Clear Calc 115.5 Estimated GFR > 60 Random Glucose 87 (60-115) mg/dL Calcium 9.4 (8.4-10.2) mg/dL Magnesium 1.8 (1.6-2.6) mg/dL Total Bilirubin 1.5 H (0.0-1.0) mg/dL Direct Bilirubin 0.4 (0.0-0.5) mg/dL AST 18 (5-31) U/L ALT 12 (0-31) U/L Alkaline Phosphatase 54 (39-117) U/L Total Protein 6.9 (6.5-8.0) g/dL Albumin 4.2 (3.5-5.0) g/dL Lipase 12 (8-78) U/L Discharge Plan Discharge Clinical Impression: RB (rectal bleeding) Patient Disposition: Home, Self-Care Instructions: Rectal Bleeding (ED) Additional Instructions: Your potassium is slightly elevated than normal. I recommend to drink plenty of fluid and have your potassium lab redrawn. Prescriptions: New sennosides [senna] 8.6 mg tablet 8.6 mg PO DAILY 14 Days Qty: 14 0RF No Action wgnfgsngew-pzxcbtlmcvnwy-lkkh [Fioricet] 50-300-40 mg capsule 1 cap PO Q4-6H PRN (Reason: pain) Qty: 14 0RF cyclobenzaprine 10 mg tablet 10 mg PO TID PRN (Reason: muscle spasm) Qty: 14 0RF ketorolac 10 mg tablet 10 mg PO TID PRN (Reason: pain) 5 Days Qty: 15 0RF lorazepam 0.5 mg tablet 0.5 mg PO BEDTIME PRN (Reason: anxiety) Qty: 10 0RF meclizine 25 mg tablet 25 mg PO DAILY PRN (Reason: dizziness) Qty: 7 0RF hydroxyzine HCl 50 mg tablet 50 mg PO BID PRN (Reason: anxiety) propranolol 10 mg tablet 10 mg PO BID [place] [facility] [place] [facility] Group, General Surgery] Referral Note: Colorectal evaluation Clinical Impression: RB (rectal bleeding) Print Language: Tunisian
[2025-10-10 13:13] LABS: MANUAL DIFF FLAG NO
[2025-10-10 13:17] LABS: Hematocrit 43.6 % (37.0-47.0); Hemoglobin 14.2 g/dl (12.0-16.0); Imm Gran Abs Auto 0.03 X10*3/uL (0.00-0.03); Imm Gran Pct Auto 0.5 % (0.0-0.4); Lymphocytes Absolute Auto 1.9 X10*3/uL (1.2-4.9); Mean Corpuscular HGB Conc 32.6 g/dl (31.0-35.0); Mean Corpuscular Hemoglobin 29.5 pg (27.0-33.0); Mean Corpuscular Volume 90.5 fL (80.0-98.0); NRBC Abs Auto 0.000 X10*3/uL (0.0-0.012); NRBC Pct Auto 0.0 /100WBC (0.0-0.2); Platelet Count 288 X10*3/uL (160-400); Red Blood Count 4.82 X10*6/uL (4.20-5.50); White Blood Count 6.4 X10*3/uL (4.8-10.8)
[2025-10-10 13:37] LABS: Alanine Aminotransferase 12 U/L (0-31); Albumin Level 4.2 g/dL (3.5-5.0); Alkaline Phosphatase 54 U/L (39-117); Anion Gap 9 (12-20); Aspartate Amino Transferase 18 U/L (5-31); Blood Urea Nitrogen 9 mg/dL (9-16); Calcium 9.4 mg/dL (8.4-10.2); Carbon Dioxide 28 mmol/L (22-29); Chloride 109 mmol/L (96-108); Creatinine Clr Calc Pharmacy 115.5; Estimated Glomerular Filt Rate > 60; Lipase 12 U/L (8-78); Magnesium 1.8 mg/dL (1.6-2.6); Potassium 5.4 mmol/L (3.3-5.1); Sodium 141 mmol/L (135-145); Total Protein 6.9 g/dL (6.5-8.0)
[2025-10-10 15:42] VITALS: BP 107/61; PULSE 78; RESP 18; O2SAT 100
[2025-10-10 16:34] VITALS: BP 107/61; PULSE 78; RESP 18; TEMP 36.2; O2SAT 100
== END 2025-10-10 16:35 | disposition home or self-care (01) ==
PROVIDERS: Physician Assistant; Emergency Provider Student in an Organized Health Care Education/Training Program; PCP Internal Medicine
DX: K62.5 Hemorrhage of anus and rectum (principal); R11.0 Nausea; F17.200 Nicotine dependence, unspecified, uncomplicated; Z71.6 Tobacco abuse counseling
CPT/HCPCS: 36415; 80048; 80076; 83690; 83735; 85025; 99283

== ENCOUNTER 2025-10-15 18:15 | Emergency (ER) | payer OTHER, SELFPAY ==
--- OUTSIDE RECORDS SUMMARY | 2025-10-10 23:59 | XMS_ITS | Continuity of Care Document ---
Author Organization [facility] Address [address] [place] [address]- Care Team Providers Care Cable Former Name Role Phone [employer] TECHNICIAN, Simi Garcia Primary Care Physician [place] [facility] [place] [facility] [address] [place] [address]- Encounter Type: Triage Allergies, Adverse Reactions, Alerts No Known Allergies Immunizations Given and Recorded Vaccine Date Status Refusal Reason influenza virus vaccine, inactivated 08/30/25 Give n influenza virus vaccine, inactivated 08/29/24 Give n influenza virus vaccine, inactivated 08/27/23 Give n influenza virus vaccine, inactivated 09/12/20 Thomas rded SARS-CoV-2 (COVID-19) mRNA BNT-162b2 vac 10/02/21 Recorded SARS-CoV-2 (COVID-19) mRNA BNT-162b2 vac 12/31/20 Recorded SARS-CoV-2 (COVID-19) mRNA BNT-162b2 vac 11/19/20 Recorded pneumococcal 23-valent vaccine 05/20/13 Recorded diphtheria/tetanus/pertussis, acel(DTaP) 05/20/13 Recorded Medications duloxetine 30 mg oral enteric coated capsule 1 capsule = 30 mg, By Mouth, Daily, start after finishing Lexapro, # 30 capsule, 3 Refills, Maintenance, 10/17/24 4:50:00 PM EST, [facility]/pharmacy #[id number], Partial fill upon patient request if the prescription is for a schedule II opioid drug., 168, cm, 10/10/24 14:35:00 EST, Height Start Date: 10/17/24 Status: Ordered Medication Dispense Status: Completed Quantity: 30.0 Unit: capsule Total Allowed Fills: 4 Fills Dispensed: 0 hydrOXYzine hydrochloride 50 mg oral tablet 1 tablet, By Mouth, 2 times a day, PRN NEEDED FOR ANXIETY, # 180 tablet, 3 Refills, Maintenance,07/31/25 5:06:00 PM EDT, [id number], 168, cm, 07/27/25 9:44:00 EDT, Height Start Date: 07/31/25 Status: Ordered Medication Dispense Status: Completed Quantity: 180.0 Unit: tablet Total Allowed Fills: 1 Fills Dispensed: 0 ibuprofen 600 mg oral tablet 600 mg, 1, tablet, By Mouth, 4 times a day, PRN, # 40 tablet, Refills 0, Tot. Refills 0, Acute 05/09/26 12:25:00 PM EDT, for pain, 05/09/25 12:25:00 PM EDT, Route to Pharmacy Electronically, [facility]/pharmacy #[id number], Partial fill upon patient request if the prescription is for a schedule II opioid drug., 168, cm, 05/09/25 11:35:00 EDT, Height Start Date: 05/09/25 Stop Date: 05/09/26 Status: Ordered Medication Dispense Status: Completed Quantity: 40.0 Unit: tablet Total Allowed Fills: 1 Fills Dispensed: 0 lidocaine 5% topical film 2 patch, Topically, Daily, PRN Pain , Moderate, remove patches after 12 hours, # 30 patch, 0 Refills, Acute 05/09/26 12:25:00 PM EDT, 05/09/25 12:25:00 PM EDT, Film, [facility]/pharmacy #[id number], Partial fill upon patient request if the prescription is for a schedule II opioid drug., 2 patch Topically Daily,PRN:Pain , Moderate,Instr:remove patches after 12 hours, 168, cm, 05/09/25 11:35:00 EDT, Height Start Date: 05/09/25 Stop Date: 05/09/26 Status: Ordered Medication Dispense Status: Completed Quantity: 30.0 Unit: patch Total Allowed Fills: 1 Fills Dispensed: 0 LORazepam 0.5 mg oral tablet 1 tablet = 0.5 mg, By Mouth, Daily, PRN as needed for anxiety, 28 day csa, # 12 tablet, 0 Refills, Maintenance, 02/20/25 9:55:00 PM EDT, Tablet, [facility]/pharmacy #[id number], Partial fill upon patient request ifthe prescription is for a schedule II opioid drug., 168, cm, 01/24/25 8:07:00 EST, Height Start Date: 02/20/25 Stop Date: 02/20/26 Status: Ordered Medication Dispense Status: Completed Quantity: 12.0 Unit: tablet Total Allowed Fills: 1 Fills Dispensed: 0 omeprazole 20 mg oral enteric coated capsule 1 capsule = 20 mg, By Mouth, Daily, 0 Refills, Maintenance, 06/21/24 7:57:00 AM EDT, Partial fill upon patient request if the prescription is for a schedule II opioid drug. Start Date: 06/21/24 Status: Ordered Medication Dispense Status: Completed Total Allowed Fills: 1 Fills Dispensed: 0 propranolol 10 mg oral tablet 1, tablet, By Mouth, 2 times a day, # 180 tablet, Refills 2, Maintenance, 04/25/25 3:51:00 PM EDT, Route to Pharmacy Electronically, [id number], 168, cm, 04/17/25 14:20:00 EDT, Height Start Date: 04/25/25 Status: Ordered Medication Dispense Status: Completed Quantity: 180.0 Unit: tablet Total Allowed Fills: 1 Fills Dispensed: 0 SUMAtriptan 50 mg oral tablet 1 tablet = 50 mg, By Mouth, Once, PRN for migraine headache, may repeat dose in 2 hours if needed, # 9 tablet, 8 Refills, Soft Stop, 08/31/25 8:45:00 AM EDT, Tablet, [facility]/pharmacy #[id number], Partial fill upon patient request if the prescription is for a schedule II opioid drug., 168, cm, 08/30/25 7:40:00 EDT, Height Start Date: 08/31/25 Status: Ordered Medication Dispense Status: Completed Quantity: 9.0 Unit: tablet Total Allowed Fills: 9 Fills Dispensed: 0 topiramate 50 mg oral tablet 1 tablet = 50 mg, By Mouth, Daily at bedtime, # 30 tablet, 11 Refills, Maintenance, 08/31/25 8:46:00 AM EDT, [facility]/pharmacy #[id number], Partial fill upon patient request if the prescription is for a schedule II opioid drug., 168, cm, 08/30/25 7:40:00 EDT, Height Start Date: 08/31/25 Stop Date: 08/26/26 Status: Ordered Medication Dispense Status: Completed Quantity: 30.0 Unit: tablet Total Allowed Fills: 12 Fills Dispensed: 0 Problem List Condition Confirmation Course Effective Dates Status H ealth Status Informant Anxiety Confirmed Active Anxiety about health Confirmed Active Chronic lower back pain Confirmed Active Fibroadenoma of left breast Confirmed Active 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 Confirmed Active Frequent headaches Confirmed Active GERD (gastroesophageal reflux disease) Confirmed Active Generalized anxiety disorder Confirmed Active History of MRSA infection Confirmed Active Calculus, renal Confirmed Active Nephrolithiasis Confirmed Active Migraine without aura or status migrainosus Confirmed Active Nicotine vapor product user Confirmed Active Palpitations Confirmed Active Social History Social History Type Response Smoking Status Former smoker, quit more than 30 days ago; Type: Cigarettes; Other: quit may 26 2023; entered on: 08/29/24 Sexual Orientation Self described orien tation: ; Straight or heterosexual Sex Sex Representation Female (finding) Patient Care team information Care Team Personnel Name: Simi Noland NP Position: [facility] Associate Professional Member Role: PCP Address: [address] [place] [address] [address] Telecom: Care Team Related Persons Name: LISA RIVAS Name: CHARLENE DAVIS Insurance Providers Guarantor name: ANDREW DAVIS Health Plan Information #: 1 Payer: [facility] Payer Identifier: LEONIE Member Number: [id number] Group Number: [id number] Subscriber Identifier: NA Relationship to Subscriber: self Coverage Type: Medicaid (Managed Care) Coverage Verification Date: NA Telecom: NA Address:
--- OUTSIDE RECORDS SUMMARY | 2025-10-10 23:59 | XMS_ITS | Continuity of Care Document ---
Author Organization [facility] Address [address] [place] [address]- Care Team Providers Care Diamond Sizer Name Role Phone Nuzhat NEON TUBE PUMPER, Simi Garcia Primary Care Physician [place] [facility] [place] [facility] [address] [place] [address]- Encounter Type: Triage Allergies, Adverse Reactions, Alerts [...] 3 Refills, Maintenance, 10/17/24 4:50:00 PM EST, [facility]/pharmacy #[id number], Partial fill upon patient request if the [...] tablet, 3 Refills, Maintenance,07/31/25 5:06:00 PM EDT, [id number], 168, cm, 07/27/25 9:44:00 EDT, Height Start [...] 12:25:00 PM EDT, Route to Pharmacy Electronically, [facility]/pharmacy #[id number], Partial fill upon patient request if [...] PM EDT, 05/09/25 12:25:00 PM EDT, Film, [facility]/pharmacy #[id number], Partial fill upon patient request if [...] Refills, Maintenance, 02/20/25 9:55:00 PM EDT, Tablet, [facility]/pharmacy #[id number], Partial fill upon patient request ifthe [...] 3:51:00 PM EDT, Route to Pharmacy Electronically, [id number], 168, cm, 04/17/25 14:20:00 EDT, Height Start Date: 04/25/25 Status: Ordered Medication Dispense Status: Completed Quantity: 180.0 Unit: tablet Total Allowed Fills: 1 Fills Dispensed: 0 SUMAtriptan 50 mg oral tablet 1 tablet = 50 mg, By Mouth, Once, PRN for migraine headache, may repeat dose in 2 hours if needed, # 9 tablet, 8 Refills, Soft Stop, 08/31/25 8:45:00 AM EDT, Tablet, [facility]/pharmacy #[id number], Partial fill upon patient request if [...] Team Personnel Name: Simi Noland NP Position: [facility] Associate Professional Member Role: PCP Address: [address] [place] [address] [address] Telecom: Care Team Related Persons Name: LISA RIVAS Name: CHARLENE DAVIS Insurance Providers Guarantor name: ANDREW DAVIS Health Plan Information #: 1 Payer: [facility] Payer Identifier: LEONIE Member Number: [id number] Group Number: [id number] Subscriber Identifier: NA Relationship to Subscriber: self Coverage Type: Medicaid (Managed Care) Coverage Verification Date: NA Telecom: NA Address:
[2025-10-15 18:40] VITALS: BP 118/57; PULSE 78; RESP 16; TEMP 36.4; O2SAT 96; BMI 28.8
--- NOTE | 2025-10-15 18:40 | ED_ITS ---
HPI - General Adult General Chief complaint: Recheck/Abnormal Lab/Rx Stated complaint: General Medical Time Seen by Provider: 10/15/25 19:53 Related Data Home Medications ?Medication ?Instructions ?Recorded ?Confirmed hydroxyzine HCl 50 mg tablet 50 mg PO BID PRN anxiety 04/23/23 05/22/25 propranolol 10 mg tablet 10 mg PO BID 05/22/25 Previous Rx's ?Medication ?Instructions ?Recorded ketorolac 10 mg tablet 10 mg PO TID PRN pain 5 days #15 08/26/23 tabs lorazepam 0.5 mg tablet 0.5 mg PO BEDTIME PRN anxiet y #10 10/17/23 tabs wixlivejow-hjwhxmtzsswyi-negnliim 1 cap PO Q4-6H PRN p ain #14 caps 01/07/24 50 mg-300 mg-40 mg capsule (Fioricet) meclizine 25 mg tablet 25 mg PO DAILY PRN dizziness #7 01/26/24 tabs cyclobenzaprine 10 mg tablet 10 mg PO TID PRN muscle s pasm #14 01/25/25 tabs sennosides 8.6 mg tablet (senna) 8.6 mg PO DAILY 14 da ys #14 tabs 10/10/25 Allergies Allergy/AdvReac Type Severity Reaction Status Date / Time No Known Allergies Allergy Unknown NOT Verified 10/15/25 18:41 APPLICABLE [facility] Past Medical History Medical History Lyme disease Heart palpitations Anxiety Cholecystectomy planned delivery delivered Surgical History S/P cholecystectomy Social History Social History Alcohol intake: never Patient Tobacco Use Status: Current everyday Tobacco user Tobacco use type: Smokeless Tobacco Smoked in Last 30 Days: No Use of substances other than those prescribed or required for medical reasons: No Substance Use Type: Marijuana Advance Directives: No Advance Directives Information Provided: No Physical Exam ED Vital Signs: BMI result Body Mass Index 28.8 Course Course Course Narrative: This is an RME: Additional HPI, ROS, PE not included below will be deferred to primary provider. RME assessment and note performed by: Brisa Hines PA-C This is a 32-ztuk-hzh-female who presents to the ER for lab work. Reports that she was told by her PCP to come to the ED for a repeat blood work as her potassium was elevated at 5.4. She is feeling well, no current concerns. Plan: Labs Medical Decision Making Lab Data 10/15/25 18:49 10/15/25 18:49 Labs: Lab Results 10/15/25 Range/Units 18:49 WBC 7.8 (4.8-10.8) X10*3/uL RBC 4.78 (4.20-5.50) X10*6/uL Hgb 14.1 (12.0-16.0) g/dl Hct 43.1 (37.0-47.0) % MCV 90.2 (80.0-98.0) fL MCH 29.5 (27.0-33.0) pg MCHC 32.7 (31.0-35.0) g/dl RDW 13.7 (11.0-16.0) % Plt Count 278 (160-400) X10*3/uL MPV 11.3 (9.4-12.3) fL Immature Gran % (Auto) 0.9 H (0.0-0.4) % Neut % (Auto) 56.1 (45-73) % Lymph % (Auto) 33.2 (20-40) % [place] % (Auto) 8.0 (2-11) % Eos % (Auto) 1.0 (0-4) % Baso % (Auto) 0.8 (0-2) % Lymph # (Auto) 2.6 (1.2-4.9) X10*3/uL [place] # (Auto) 0.6 (0.1-1.2) X10*3/uL Eos # (Auto) 0.1 (0.0-0.4) X10*3/uL Baso # (Auto) 0.1 (0.0-0.2) X10*3/uL Abs Immat Gran (auto) 0.07 H (0.00-0.03) X10*3/uL Absolute Neuts (auto) 4.4 (2.0-8.3) x10*3/uL Absolute Nucleated RBC 0.000 (0.0-0.012) X10*3/uL Nucleated RBC % (auto) 0.0 (0.0-0.2) /100WBC Sodium 142 (135-145) mmol/L Potassium 4.9 (3.3-5.1) mmol/L Chloride 108 (96-108) mmol/L Carbon Dioxide 26 (22-29) mmol/L Anion Gap 13 (12-20) BUN 10 (9-16) mg/dL Creatinine 0.72 (0.5-1.4) mg/dL Estim Creat Clear Calc 109.7 Estimated GFR > 60 Random Glucose 111 (60-115) mg/dL Calcium 9.4 (8.4-10.2) mg/dL Total Bilirubin 1.3 H (0.0-1.0) mg/dL AST 18 (5-31) U/L ALT 12 (0-31) U/L Alkaline Phosphatase 52 (39-117) U/L Total Protein 7.0 (6.5-8.0) g/dL Albumin 4.4 (3.5-5.0) g/dL Discharge Plan Discharge Clinical Impression: Acute hyperkalemia Patient Disposition: Home, Self-Care Additional Instructions: Your potassium today is normal, 4.9. Please follow-up with your primary care physician tomorrow. If you have any worsening or new symptoms, please return to the emergency room or call 911 Prescriptions: No Action mmjddtvdyu-kbmfxycmzueep-vsvd [Fioricet] 50-300-40 mg capsule 1 cap PO Q4-6H PRN (Reason: pain) Qty: 14 0RF cyclobenzaprine 10 mg tablet 10 mg PO TID PRN (Reason: muscle spasm) Qty: 14 0RF ketorolac 10 mg tablet 10 mg PO TID PRN (Reason: pain) 5 Days Qty: 15 0RF lorazepam 0.5 mg tablet 0.5 mg PO BEDTIME PRN (Reason: anxiety) Qty: 10 0RF meclizine 25 mg tablet 25 mg PO DAILY PRN (Reason: dizziness) Qty: 7 0RF sennosides [senna] 8.6 mg tablet 8.6 mg PO DAILY 14 Days Qty: 14 0RF hydroxyzine HCl 50 mg tablet 50 mg PO BID PRN (Reason: anxiety) propranolol 10 mg tablet 10 mg PO BID Interventions: ED Discharge Assessment Last Done: 10/15/25 20:04 Discharge Date/Time: 10/15/25 20:38 Print Language: Bulgarian
[2025-10-15 18:54] LABS: MANUAL DIFF FLAG NO
[2025-10-15 19:08] LABS: Alanine Aminotransferase 12 U/L (0-31); Albumin Level 4.4 g/dL (3.5-5.0); Alkaline Phosphatase 52 U/L (39-117); Anion Gap 13 (12-20); Aspartate Amino Transferase 18 U/L (5-31); Blood Urea Nitrogen 10 mg/dL (9-16); Calcium 9.4 mg/dL (8.4-10.2); Carbon Dioxide 26 mmol/L (22-29); Chloride 108 mmol/L (96-108); Creatinine Clr Calc Pharmacy 109.7; Estimated Glomerular Filt Rate > 60; Potassium 4.9 mmol/L (3.3-5.1); Sodium 142 mmol/L (135-145); Total Protein 7.0 g/dL (6.5-8.0)
[2025-10-15 19:44] LABS: Hematocrit 43.1 % (37.0-47.0); Hemoglobin 14.1 g/dl (12.0-16.0); Imm Gran Abs Auto 0.07 X10*3/uL (0.00-0.03); Imm Gran Pct Auto 0.9 % (0.0-0.4); Lymphocytes Absolute Auto 2.6 X10*3/uL (1.2-4.9); Mean Corpuscular HGB Conc 32.7 g/dl (31.0-35.0); Mean Corpuscular Hemoglobin 29.5 pg (27.0-33.0); Mean Corpuscular Volume 90.2 fL (80.0-98.0); NRBC Abs Auto 0.000 X10*3/uL (0.0-0.012); NRBC Pct Auto 0.0 /100WBC (0.0-0.2); Platelet Count 278 X10*3/uL (160-400); Red Blood Count 4.78 X10*6/uL (4.20-5.50); White Blood Count 7.8 X10*3/uL (4.8-10.8)
--- NOTE | 2025-10-15 19:49 | PC.NURSE ---
Assumed care of pt, presents to the ED for a recheck of her potassium, she was here a x2 days ago for hyperkalemia, aaox4, nad,
[2025-10-15 20:04] VITALS: BP 118/57; PULSE 78; RESP 16; TEMP 36.4; O2SAT 96
== END 2025-10-15 20:38 | disposition home or self-care (01) ==
PROVIDERS: Physician Assistant Medical; Emergency Provider Emergency Medicine; PCP Nurse Practitioner Family
DX: E87.5 Hyperkalemia (principal); F17.200 Nicotine dependence, unspecified, uncomplicated; Z71.6 Tobacco abuse counseling
CPT/HCPCS: 36415; 80053; 85025; 99283; 99284

== ENCOUNTER 2025-10-19 08:15 | Emergency (ER) | payer OTHER, SELFPAY ==
--- NOTE | ~2025-10-19 | CT_ITS ---
EXAMINATION: CT ABDOMEN PELVIS WITHOUT IV CONTRAST HISTORY: LLQ pain hx stones COMPARISON: Comparison is made with the prior examination dated 05/01/2025. TECHNIQUE: CT scan of the abdomen and pelvis was performed without contrast using standard departmental protocol. Coronal and sagittal reformatted images were generated and reviewed. Oral contrast material was not administered per department protocol. This CT exam was performed with one or more of the following dose reduction techniques: automated exposure control, adjustment of the mA and/or kV according to patient size, use of iterative reconstruction technique. DLP: 608 mGy-cm FINDINGS: LOWER CHEST: The visualized lung bases are clear. There is no pleural effusion. CARDIOVASCULATURE: The heart is normal in size. There is no pericardial effusion. LIVER: The visualized portion of the liver is normal in size and contour. The liver has an unremarkable unenhanced appearance. GALLBLADDER / BILE DUCTS: The gallbladder is unremarkable. There is no intra or extrahepatic biliary ductal dilatation. SPLEEN: The visualized portion of the spleen is normal in size and has an unremarkable unenhanced appearance. PANCREAS: The pancreas has an unremarkable unenhanced appearance. ADRENAL GLANDS: Unremarkable. KIDNEYS/RETROPERITONEUM: No renal or ureteral calculi are identified. There is no hydronephrosis or hydroureter. LYMPH NODES: No retroperitoneal lymphadenopathy is identified in the abdomen or pelvis. VASCULATURE: The abdominal aorta is normal in caliber. MESENTERY/PERITONEUM: No free fluid. No masses. There is no free intraperitoneal gas. STOMACH: The stomach is unremarkable. SMALL BOWEL: The small bowel is normal in caliber. COLON: The colon is unremarkable. APPENDIX: Normal. URINARY BLADDER/PELVIC ORGANS: The urinary bladder is collapsed, limiting evaluation. The uterus has an unremarkable unenhanced appearance. There is a hyperdense cyst of the vagina. BONES / SOFT TISSUES: No suspicious bony or soft tissue abnormalities. CT/CT abdomen pelvis wo IV con IMPRESSION: No evidence of nephrolithiasis or ureteral obstruction. Electronically signed by: Marvel Patel MD 10/19/2025 10:28 AM [facility]
[2025-10-19 08:18] VITALS: BP 116/72; PULSE 79; RESP 16; TEMP 37; O2SAT 98; BMI 25.8
--- NOTE | 2025-10-19 09:17 | ED_ITS ---
HPI - Abdominal Pain General Chief Complaint: Abdominal Pain Stated Complaint: cramps and lower back pain Time Seen by Provider: 10/19/25 09:06 Source: patient Mode of arrival: ambulatory Limitations: no limitations History of Present Illness ED Provider: TIFFANI MONROY PA-C HPI narrative: 40 y/o female with hx PVCs, kidney stones, and anxiety presents to the ED today for evaluation of intermittent LLQ abdominal pain x 3-4 days. Describes this as a cramping sensation. Pain radiates to her back. Also reports discomfort with urination. Hx of similar, was diagnosed with kidney stones. LMP was on 09/29, and thinks this pain could be related to menstruation. She is due for her next period in 1.5 weeks. She is currently sexually active and uses protection. Denies concern for STIs. Denies N/V/D, blood in urine/stool, chest pain, SOB, fevers, abnormal vaginal, discharge, irregular menstrual bleeding. She also endorses b/l neck pain, described as a stiffness/spasm. States this happens when she becomes stressed out. Reports recent stressors. No injury/trauma/falls. No fever/chills. Related Data Home Medications ?Medication ?Instructions ?Recorded ?Confirmed hydroxyzine HCl 50 mg tablet 50 mg PO BID PRN anxiety 04/23/23 05/22/25 propranolol 10 mg tablet 10 mg PO BID 05/22/25 Previous Rx's ?Medication ?Instructions ?Recorded ketorolac 10 mg tablet 10 mg PO TID PRN pain 5 days #15 08/26/23 tabs lorazepam 0.5 mg tablet 0.5 mg PO BEDTIME PRN anxiet y #10 10/17/23 tabs bwtihmpavd-jhholjrrittle-mudyargs 1 cap PO Q4-6H PRN p ain #14 caps 01/07/24 50 mg-300 mg-40 mg capsule (Fioricet) meclizine 25 mg tablet 25 mg PO DAILY PRN dizziness #7 01/26/24 tabs cyclobenzaprine 10 mg tablet 10 mg PO TID PRN muscle s pasm #14 01/25/25 tabs sennosides 8.6 mg tablet (senna) 8.6 mg PO DAILY 14 da ys #14 tabs 10/10/25 cyclobenzaprine 5 mg tablet 5 mg PO TID PRN muscle jad n 3 days 10/19/25 #9 tabs lidocaine 5 % topical patch See Rx Instructions topica l 10/19/25 .COMPLEX #15 ea naproxen 500 mg tablet 500 mg PO BID PRN pain (scal e 10/19/25 score 4-6) #20 tabs Allergies Allergy/AdvReac Type Severity Reaction Status Date / Time No Known Allergies Allergy Unknown NOT Verified 10/20/25 14:36 APPLICABLE Review of Systems Review of Systems Yes all other systems are reviewed and are negative [facility] Past Medical History Attestation statement: The following information was validated with the patient. Source: old records reviewed and nursing notes reviewed Medical History Lyme disease Heart palpitations Anxiety Cholecystectomy planned delivery delivered Surgical History S/P cholecystectomy Social History Social History Alcohol intake: never Patient Tobacco Use Status: Current everyday Tobacco user Tobacco use type: Smokeless Tobacco Substance Use Type: Marijuana Do you have a plan to hurt others: No Plan Physical Exam ED Vital Signs: Vital Signs - 24 hr 10/19/25 08:18 Temperature 98.6 F Pulse Rate 79 Respiratory Rate 16 Blood Pressure 116/72 Pulse Oximetry 98 Oxygen Delivery Method Room Air BMI result Body Mass Index 25.8 vital signs stable General: Well appearing, in no acute distress. Skin: Warm, dry, intact. No rashes or lesions. Head: Normocephalic, atraumatic. EENT: Hearing is intact b/l. Conjunctiva clear. PERRLA. EOM intact. Moist mucous membranes.? Neck: Supple without LAD Cardiac: Chest wall symmetric. RRR Lungs: Normal respiratory effort without accessory muscle use. CTA bilaterally Abdomen: Soft, non-tender, non-distended. No rebound tenderness or guarding. Positive BS x4. no cvat. Back: No midline spinous or paraspinal tenderness. No step off deformity. Ext: Upper and lower extremities atraumatic, without tenderness, deformity, swelling or erythema. Full ROM throughout Neuro: AOx3. Normal speech. Ambulating with steady gait. Course Course Course Narrative: CBC without leukocytosis or left shift. Chemistry showing hyperkalemia to 5.6, normal magnesium. Patient has a history of hyperkalemia, unclear etiology. appears to be just slightly elevated when compared to her baseline. she does not appear to be on any potassium sparing medications. she does not complaint of chest pain or palpitations. I have ordered 10 of lokelma and IVF. plan to repeat blood work. no MOMO, liver function wnl. urine w/o infection or blood. urine negative. > ct a/p without renal or ureteral stones, no ovarian masses. scan unremarkable. > patient medicated w/ toradol w/ improvement in pain. likely related to menses. I do not feel as though ultrasound is warranted at this time. Also endorsing musculoskeletal neck pain - will send flexeril, naproxen, and lido patches. 1315 -- Repeat potassium wnl. Patient has remained stable throughout ED visit today. Discussed worrisome signs and symptoms and when to return to the ED. All questions answered at this time. Patient is agreeable with disposition and stable for discharge. Medical Decision Making Medical Decision Making [facility] Narrative: 40 y/o female with hx PVCs, kidney stones, and anxiety presents to the ED today for evaluation of intermittent LLQ abdominal pain x 3-4 days. also endorses neck spasms/stiffness. Differential diagnoses: appendicitis, UTI, IUP, constipation Abdominal exam without peritoneal signs. No evidence of acute abdomen at this time. Well appearing. Low suspicion for acute hepatobiliary disease (including acute cholecystitis), acute infectious processes (pneumonia, hepatitis, pyelonephritis, PID, TOA), vascular catastrophe, bowel obstruction or viscus perforation, ovarian cyst/ rupture/ torsion, ectopic. Presentation not consistent with other acute, emergent causes of abdominal pain at this time. Plan for labs, UA, imaging, pain control and re-evaluation. Differential Diagnosis Differential Diagnoses: The differential diagnosis associated with the presentation includes as above. Admission/Observation not indicated. Lab Data [facility] Lab Attestation statement: I reviewed the patient's lab results. as above. 10/19/25 09:47 10/19/25 12:38 Labs: Lab Results 10/19/25 10/19/25 10/19/25 Range/Units 09:47 09:49 12:38 WBC 8.7 (4.8-10.8) X10*3/uL RBC 4.90 (4.20-5.50) X10*6/uL Hgb 14.4 (12.0-16.0) g/dl Hct 44.0 (37.0-47.0) % MCV 89.8 (80.0-98.0) fL MCH 29.4 (27.0-33.0) pg MCHC 32.7 (31.0-35.0) g/dl RDW 14.0 (11.0-16.0) % Plt Count 226 (160-400) X10*3/uL MPV 10.6 (9.4-12.3) fL Immature Gran % (Auto) 0.3 (0.0-0.4) % Neut % (Auto) 69.5 (45-73) % Lymph % (Auto) 22.2 (20-40) % [place] % (Auto) 7.2 (2-11) % Eos % (Auto) 0.5 (0-4) % Baso % (Auto) 0.3 (0-2) % Lymph # (Auto) 1.9 (1.2-4.9) X10*3/uL [place] # (Auto) 0.6 (0.1-1.2) X10*3/uL Eos # (Auto) 0.0 (0.0-0.4) X10*3/uL Baso # (Auto) 0.0 (0.0-0.2) X10*3/uL Abs Immat Gran (auto) 0.03 (0.00-0.03) X10*3/uL Absolute Neuts (auto) 6.0 (2.0-8.3) x10*3/uL Absolute Nucleated RBC 0.000 (0.0-0.012) X10*3/uL Nucleated RBC % (auto) 0.0 (0.0-0.2) /100WBC Sodium 142 (135-145) mmol/L Potassium 5.6 H 4.2 D (3.3-5.1) mmol/L Chloride 110 H (96-108) mmol/L Carbon Dioxide 24 (22-29) mmol/L Anion Gap 14 (12-20) BUN 10 (9-16) mg/dL Creatinine 0.72 (0.5-1.4) mg/dL Estim Creat Clear Calc 110.7 Estimated GFR > 60 Random Glucose 106 (60-115) mg/dL Calcium 9.3 (8.4-10.2) mg/dL Magnesium 1.6 (1.6-2.6) mg/dL Total Bilirubin 0.6 (0.0-1.0) mg/dL AST 15 (5-31) U/L ALT 10 (0-31) U/L Alkaline Phosphatase 52 (39-117) U/L Total Protein 6.9 (6.5-8.0) g/dL Albumin 4.3 (3.5-5.0) g/dL Urine Color Yellow Urine Appearance Clear Urine pH 8.0 (5.0-9.0) Ur Specific [place] 1.020 (1.005-1.025) Urine Protein Negative (Neg-Trace) mg/dL Urine Glucose (UA) Negative (Negative) mg/dL Urine Ketones Negative (Negative) mg/dL Urine Blood Negative (Negative) Urine Nitrite Negative (Negative) Ur Leukocyte Esterase Negative (Negative) Urine Test NEGATIVE (NEGATIVE) Independent Interpretation I performed an independent interpretation of an: CT Scan Interpretation: ct a/p without ovarian masses Radiology Impression Discussion of test interpretation with radiology: I have reviewed the radiologist's reading. Radiologist Impression: Procedure(s): CT abdomen pelvis wo IV con Accession Number(s): [id number] cc: Simi Noland NP; Tiffani Monroy~ Report Number: [id number]: Total DLP = 608.00 mGy-cm Reason for Exam: LLQ pain hx stones EXAMINATION: CT ABDOMEN PELVIS WITHOUT IV CONTRAST HISTORY: LLQ pain hx stones COMPARISON: Comparison is made with the prior examination dated 05/01/2025. TECHNIQUE: CT scan of the abdomen and pelvis was performed without contrast using standard departmental protocol. Coronal and sagittal reformatted images were generated and reviewed. Oral contrast material was not administered per department protocol. This CT exam was performed with one or more of the following dose reduction techniques: automated exposure control, adjustment of the mA and/or kV according to patient size, use of iterative reconstruction technique. DLP: 608 mGy-cm FINDINGS: LOWER CHEST: The visualized lung bases are clear. There is no pleural effusion. CARDIOVASCULATURE: The heart is normal in size. There is no pericardial effusion. LIVER: The visualized portion of the liver is normal in size and contour. The liver has an unremarkable unenhanced appearance. GALLBLADDER / BILE DUCTS: The gallbladder is unremarkable. There is no intra or extrahepatic biliary ductal dilatation. SPLEEN: The visualized portion of the spleen is normal in size and has an unremarkable unenhanced appearance. PANCREAS: The pancreas has an unremarkable unenhanced appearance. ADRENAL GLANDS: Unremarkable. KIDNEYS/RETROPERITONEUM: No renal or ureteral calculi are identified. There is no hydronephrosis or hydroureter. LYMPH NODES: No retroperitoneal lymphadenopathy is identified in the abdomen or pelvis. VASCULATURE: The abdominal aorta is normal in caliber. MESENTERY/PERITONEUM: No free fluid. No masses. There is no free intraperitoneal gas. STOMACH: The stomach is unremarkable. SMALL BOWEL: The small bowel is normal in caliber. COLON: The colon is unremarkable. APPENDIX: Normal. URINARY BLADDER/PELVIC ORGANS: The urinary bladder is collapsed, limiting evaluation. The uterus has an unremarkable unenhanced appearance. There is a hyperdense cyst of the vagina. BONES / SOFT TISSUES: No suspicious bony or soft tissue abnormalities. CT/CT abdomen pelvis wo IV con IMPRESSION: No evidence of nephrolithiasis or ureteral obstruction. Electronically signed by: Marvel Patel MD 10/19/2025 10:28 AM [facility] External Record Review External record reviewed: Inpatient record, Office record and Outpatient record Prescription Management I considered prescription management with: Pain Medication and Other (flexeril) Social Determinants Patient?s care significantly limited by Social Determinants of Health including: Other Social Determinant of Health Medications Administered Discontinued Medications Generic Name Dose Route Start Last Admin Trade Name Freq PRN Reason Stop Dose Admin Sodium Chloride 1,000 mls @ 999 mls/hr 10/19/25 10:30 10/19/25 12:30 Ns IV 10/19/25 11:30 Infused .Q1H1M ROGERS Infusion Ketorolac Tromethamine 30 mg 10/19/25 10:42 10/19/25 11:11 Ketorolac Tromethamine 30 Mg/Ml Vial IVPUSH 10/19/25 10:43 30 mg ONCE ONE Administration Sodium Zirconium Cyclosilicate 10 gm 11/28/25 10:21 10/19/25 11:11 Sodium Zirconium Cyclosilicate 10 Gm Powd.Pack PO 10/19/25 10:22 10 gm ONCE ONE Administration Critical Care Time Critical Care Time Critical Care Time: No Discharge Plan Discharge Clinical Impression: Abdominal pain Patient Disposition: Home, Self-Care Instructions: Abdominal Pain (ED) Additional Instructions: You were evaluated in the ED today for abdominal/back pain. Your blood work showed elevated potassium levels, similar to your previous labs. This was corrected in ED. Please follow up with your primary care provider. Blood work is otherwise reassuring. Your urine is negative for infection, . The CT scan of your abdomen is unremarkable. Your discomfort is likely related to your upcoming menses. I recommend NSAIDs such as Naproxen - this has been sent to your pharmacy for you to take as needed for pain. I am also sending Flexeril, a muscle relaxer, to your pharmacy. Take this at night as it makes you drowsy. Do not drive, drink alcohol, or operate machinery while taking it. Lidoderm patches are numbing patches. Apply to painful areas. Return to the Emergency Department if you experience worsening back pain, difficulty walking, fevers, numbness, tingling, incontinence, or any other concerning symptoms. In the case of an emergency call 911. Prescriptions: New naproxen 500 mg tablet 500 mg PO BID PRN (Reason: pain (scale score 4-6)) Qty: 20 0RF cyclobenzaprine 5 mg tablet 5 mg PO TID PRN (Reason: muscle pain) 3 Days Qty: 9 0RF lidocaine 5 % adhesive patch,medicated See Rx Instructions .ROUTE .COMPLEX Qty: 15 0RF Rx Instructions: leave on most painful area for up to 12 hrs No Action quyljragbq-ovbfbcczpkius-zpvi [Fioricet] 50-300-40 mg capsule 1 cap PO Q4-6H PRN (Reason: pain) Qty: 14 0RF cyclobenzaprine 10 mg tablet 10 mg PO TID PRN (Reason: muscle spasm) Qty: 14 0RF ketorolac 10 mg tablet 10 mg PO TID PRN (Reason: pain) 5 Days Qty: 15 0RF lorazepam 0.5 mg tablet 0.5 mg PO BEDTIME PRN (Reason: anxiety) Qty: 10 0RF meclizine 25 mg tablet 25 mg PO DAILY PRN (Reason: dizziness) Qty: 7 0RF sennosides [senna] 8.6 mg tablet 8.6 mg PO DAILY 14 Days Qty: 14 0RF hydroxyzine HCl 50 mg tablet 50 mg PO BID PRN (Reason: anxiety) propranolol 10 mg tablet 10 mg PO BID Referrals: Simi Noland NP [Primary Care Provider, Internal Medicine] Interventions: ED Discharge Assessment Last Done: 10/19/25 13:20 Discharge Date/Time: 10/19/25 13:21 Print Language: Italian
[2025-10-19 09:54] LABS: MANUAL DIFF FLAG NO
[2025-10-19 09:56] LABS: Hematocrit 44.0 % (37.0-47.0); Hemoglobin 14.4 g/dl (12.0-16.0); Imm Gran Abs Auto 0.03 X10*3/uL (0.00-0.03); Imm Gran Pct Auto 0.3 % (0.0-0.4); Lymphocytes Absolute Auto 1.9 X10*3/uL (1.2-4.9); Mean Corpuscular HGB Conc 32.7 g/dl (31.0-35.0); Mean Corpuscular Hemoglobin 29.4 pg (27.0-33.0); Mean Corpuscular Volume 89.8 fL (80.0-98.0); NRBC Abs Auto 0.000 X10*3/uL (0.0-0.012); NRBC Pct Auto 0.0 /100WBC (0.0-0.2); Platelet Count 226 X10*3/uL (160-400); Red Blood Count 4.90 X10*6/uL (4.20-5.50); White Blood Count 8.7 X10*3/uL (4.8-10.8)
[2025-10-19 09:56] LABS: Appearance Urine Clear; Glucose Urine UA Negative (Negative); PH 8.0 (5.0-9.0); Specific Gravity - Urine 1.020 (1.005-1.025)
[2025-10-19 09:57] LABS: UPreg QC Valid YES
[2025-10-19 10:12] LABS: Alanine Aminotransferase 10 U/L (0-31); Albumin Level 4.3 g/dL (3.5-5.0); Alkaline Phosphatase 52 U/L (39-117); Anion Gap 14 (12-20); Aspartate Amino Transferase 15 U/L (5-31); Blood Urea Nitrogen 10 mg/dL (9-16); Calcium 9.3 mg/dL (8.4-10.2); Carbon Dioxide 24 mmol/L (22-29); Chloride 110 mmol/L (96-108); Creatinine Clr Calc Pharmacy 110.7; Estimated Glomerular Filt Rate > 60; Magnesium 1.6 mg/dL (1.6-2.6); Potassium 5.6 mmol/L (3.3-5.1); Sodium 142 mmol/L (135-145); Total Protein 6.9 g/dL (6.5-8.0)
[2025-10-19 13:09] LABS: Potassium 4.2 mmol/L (3.3-5.1)
[2025-10-19 13:20] VITALS: BP 116/67; PULSE 71; RESP 16; TEMP 36.7; O2SAT 97
== END 2025-10-19 13:21 | disposition home or self-care (01) ==
PROVIDERS: Physician Assistant Medical; Emergency Provider Emergency Medicine; PCP Nurse Practitioner Family
DX: R25.2 Cramp and spasm (principal); M54.50 Low back pain, unspecified; R10.32 Left lower quadrant pain; R11.0 Nausea; F17.210 Nicotine dependence, cigarettes, uncomplicated; Z20.2 Contact with and (suspected) exposure to infections with a predominantly sexual mode of transmission; Z79.899 Other long term (current) drug therapy
CPT/HCPCS: 36415; 74176; 80053; 81003; 81025; 83735; 84132; 85025; 96361; 96374; 99283; 99284; J1885

== ENCOUNTER → 2025-10-19 10:01 | Outpatient (BNV) | payer OTHER, SELFPAY | PROVIDERS: Emergency Provider Emergency Medicine; PCP Nurse Practitioner Family; Visit Provider Radiology Diagnostic Radiology | DX: R10.32 Left lower quadrant pain (principal); Z87.442 Personal history of urinary calculi | CPT/HCPCS: 74176 ==

== ENCOUNTER 2025-10-20 14:28 | Emergency (ER) | payer OTHER, SELFPAY ==
[2025-10-20 14:34] VITALS: BP 126/71; PULSE 78; RESP 16; TEMP 36.6; O2SAT 100; BMI 28.4
--- NOTE | 2025-10-20 15:16 | ED_ITS ---
HPI - General Adult General Chief complaint: Neck Pain/Injury Stated complaint: General Medical Time Seen by Provider: 10/20/25 18:08 History of Present Illness ED Provider: Beverly Peterson NP HPI narrative: 32-year-old female with medical history significant for cervicalgia, palpitations, anxiety presents to the ED reporting persistent left-sided neck pain that is been ongoing since 1 day. Patient reports that she took the prescribed Flexeril yesterday evening, it made her very sleepy, but fully took away her neck pain, and she woke up this morning feeling the same pain. She then came to the ED, and tells me she did not take any more of the medication at home. Denies any headache, dizziness or lightheadedness, painful range of motion. No fever, chills. No chest pain or pressure, shortness of breath. No jaw pain. Related Data Home Medications ?Medication ?Instructions ?Recorded ?Confirmed hydroxyzine HCl 50 mg tablet 50 mg PO BID PRN anxiety 04/23/23 05/22/25 propranolol 10 mg tablet 10 mg PO BID 05/22/25 Previous Rx's ?Medication ?Instructions ?Recorded ketorolac 10 mg tablet 10 mg PO TID PRN pain 5 days #15 08/26/23 tabs lorazepam 0.5 mg tablet 0.5 mg PO BEDTIME PRN anxiet y #10 10/17/23 tabs ulpdnobikg-zzxtaehtgmwgs-yzmverpz 1 cap PO Q4-6H PRN p ain #14 caps 01/07/24 50 mg-300 mg-40 mg capsule (Fioricet) meclizine 25 mg tablet 25 mg PO DAILY PRN dizziness #7 01/26/24 tabs cyclobenzaprine 10 mg tablet 10 mg PO TID PRN muscle s pasm #14 01/25/25 tabs sennosides 8.6 mg tablet (senna) 8.6 mg PO DAILY 14 da ys #14 tabs 10/10/25 cyclobenzaprine 5 mg tablet 5 mg PO TID PRN muscle jad n 3 days 10/19/25 #9 tabs lidocaine 5 % topical patch See Rx Instructions topica l 10/19/25 .COMPLEX #15 ea naproxen 500 mg tablet 500 mg PO BID PRN pain (scal e 10/19/25 score 4-6) #20 tabs lidocaine 5 % topical patch 1 patch topical DAILY 7 da ys #15 ea 10/20/25 (Lidoderm) Allergies Allergy/AdvReac Type Severity Reaction Status Date / Time No Known Allergies Allergy Unknown NOT Verified 10/20/25 14:36 APPLICABLE Review of Systems Review of Systems: ROS is otherwise negative unless mentioned in HPI. [facility] Past Medical History Medical History Lyme disease Heart palpitations Anxiety Cholecystectomy planned delivery delivered Surgical History S/P cholecystectomy Social History Social History Alcohol intake: never Patient Tobacco Use Status: Current everyday Tobacco user Tobacco use type: Smokeless Tobacco Substance Use Type: Marijuana Advance Directives: No Advance Directives Information Provided: No Do you have a plan to hurt others: No Plan Physical Exam ED Exam Exam: Nursing notes and vital signs reviewed. Constitutional: Well-appearing, NAD. Alert. Oriented X3. Eyes: EOMI. Neck: Normal inspection. Neck supple. No midline c-spine tenderness. CVS: Pulses normal. Respiratory: No respiratory distress. Skin: Skin warm and dry. Normal skin color. Extremities: No lower extremity edema. Neuro: Oriented X 3. No motor deficit. Vital Signs: Vital Signs - 24 hr 10/20/25 14:34 Temperature 97.8 F Pulse Rate 78 Respiratory Rate 16 Blood Pressure 126/71 Pulse Oximetry 100 Oxygen Delivery Method Room Air BMI result Body Mass Index 28.4 Course Course Course Narrative: This is a Rapid Medical Examination (RME) performed by Henny Monroy PA-C in triage. Full HPI, ROS, assessment and treatment plan per primary provider in the Main ED. Hx: 40 yo F here for eval of neck pain/stiffness and headache x1 day. seen here yesterday, prescribed flexeril which she took with improvement. Plan: further eval in back Medications Administered Discontinued Medications Generic Name Dose Route Start Last Admin Trade Name Freq PRN Reason Stop Dose Admin Lidocaine 1 patch 10/20/25 18:14 10/20/25 18:23 Lidocaine 4 % Patch Adh..Patch TRANSDERMA 10/20/25 18:15 1 patch ONCE ONE Administration Protocol Medical Decision Making Medical Decision Making [facility] Narrative: Clinically she appears well. She has been waiting in the ED for several hours, enter my assessment has point tenderness over the left upper trapezius. She tells me she would not take the Flexeril her drowsy, I did explain to her that muscle relaxants to have this side effects, she can take this medication when she gets home later today. If she feels that the dose of 10 mg has been making her drowsy, she can also cut the pill in half and take 5 mg. In the ED I gave her a Lidoderm patch, I also instructed that she use Tylenol in the mornings, and Flexeril in the evenings given the drowsiness effect. She is agreeable with this plan of care. There is no indication for additional workup in the ED as she had a full workup yesterday and has no new/acute complaints. She was given a Lidoderm patch, I will discharge her home with this medication and instructions for Flexeril use. She is agreeable, expressed understanding with plan of care. Differential Diagnosis Differential Diagnoses: The differential diagnosis associated with the presentation includes Muscle spasm, cervical fracture, cervicalgia Admission/Observation Consideration of admission/observation: Escalation of care including admission/observation considered (Not indicated) Lab Data [facility] Lab Attestation statement: I reviewed the patient's lab results. (From yesterday) Independent Historian None External Record Review External record reviewed: Other (Yesterday's ER visit) Chronic Conditions Patient?s care impacted by: Other (Anxiety) Social Determinants Patient?s care significantly limited by Social Determinants of Health including: Problems related to primary support group Discharge Plan Discharge Clinical Impression: Cervicalgia Patient Disposition: Home, Self-Care Instructions: Acute Neck Pain (ED) Additional Instructions: As we discussed, you can use the topical lidocaine patches in the morning, as well as Tylenol/ibuprofen. If the Flexeril is making you drowsy, we recommend taking this medication in the evening. Please follow up with your primary care provider, who may recommend physical therapy or seeing a chiropractor. With any worsening complaints, return back to the ED for reassessment. Prescriptions: New lidocaine [Lidoderm] 5 % adhesive patch,medicated 1 patch topical DAILY 7 Days Qty: 15 0RF Rx Instructions: leave on most painful area for up to 12 hrs No Action jzofoqizvr-jdhngxxlestef-hdca [Fioricet] 50-300-40 mg capsule 1 cap PO Q4-6H PRN (Reason: pain) Qty: 14 0RF cyclobenzaprine 10 mg tablet 10 mg PO TID PRN (Reason: muscle spasm) Qty: 14 0RF naproxen 500 mg tablet 500 mg PO BID PRN (Reason: pain (scale score 4-6)) Qty: 20 0RF cyclobenzaprine 5 mg tablet 5 mg PO TID PRN (Reason: muscle pain) 3 Days Qty: 9 0RF lidocaine 5 % adhesive patch,medicated See Rx Instructions .ROUTE .COMPLEX Qty: 15 0RF Rx Instructions: leave on most painful area for up to 12 hrs ketorolac 10 mg tablet 10 mg PO TID PRN (Reason: pain) 5 Days Qty: 15 0RF lorazepam 0.5 mg tablet 0.5 mg PO BEDTIME PRN (Reason: anxiety) Qty: 10 0RF meclizine 25 mg tablet 25 mg PO DAILY PRN (Reason: dizziness) Qty: 7 0RF sennosides [senna] 8.6 mg tablet 8.6 mg PO DAILY 14 Days Qty: 14 0RF hydroxyzine HCl 50 mg tablet 50 mg PO BID PRN (Reason: anxiety) propranolol 10 mg tablet 10 mg PO BID Referrals: Simi Noland NP [Primary Care Provider, Internal Medicine] Print Language: Mohawk
[2025-10-20] MEDS: Lidocaine 4 % Patch ADH..PATCH 1 PATCH TRANSDERMA (18:23)
--- NOTE | 2025-10-20 18:35 | PC.NURSE ---
Pt here yesterday, left prior to being seen, pt here today with upper neck pressure/pain. Pt took muscle relaxer at home which helped her pain, pt did not take medications today. idocaine patch applied, pt requesting muscle relaxer prior to DC, Provider discussed with pt that she would not prescribe one while she was here and that she could take her home medications when she got home. Pt able to ambulate out of ED to wait for her to come and get her.
[2025-10-20 18:37] VITALS: BP 126/71; PULSE 78; RESP 16; TEMP 36.6; O2SAT 100
--- NOTE | 2025-11-02 11:24 | PTCAREPLN_ITS ---
Patient Care Plan Patient Care Plan Details: [facility]PART[facility]ARE PLAN Nicole Nash 1985 Patient presentation: Nicole generally presents with typical symptoms of headaches, heart racing, chest pains, urinary frequency.? She is always very polite.? She does suffer from anxiety due to medical concerns conditions.? She generally has symptoms that require basic labs and EKG as well as urine.? Her most recent CT scan of the abdomen and pelvis on 10/19/2025 was normal there was no signs of nephrolithiasis or ureterolithiasis.? She has had repeated head and CTA of the head and neck that were normal without any obstruction, stenosis, mass, patholog y. PMH: Anxiety related to health conditions, heart palpitations, nephrolithiasis, migraines, pyelonephritis, Lyme disease, prior cholecystectomy Prior admissions: There have been no admissions to our facility as of the new EMR dating back to 2020.? She has had 12 visits in 2024 for palpitations, concern for migraine, concern for pyelonephritis, concern for anxiety. ED interventions: EKG, basic labs, urine.? Of note she has had 6 CT scans of various parts of the body in the last 2 years including abdomen and pelvis, head and neck CTA imaging.? I would avoid any imaging unless necessary.? Please utilize our POCUS tools to assess for hydronephrosis, if necessary.? Reassurance is the mainstay of treatment she does not need any prescriptions to go home with. Follow up: ? Nicole has seen Cardiology, Urology, she has a primary care she can follow up with.? Remember to reassure her that workup showed no acute findings.? If you do not explain findings or reassure her, she tends to return in 24-48 hours with similar symptoms
== END 2025-10-20 18:37 | disposition home or self-care (01) ==
PROVIDERS: Emergency Provider Emergency Medicine; PCP Nurse Practitioner Family
DX: M54.2 Cervicalgia (principal); R00.2 Palpitations
CPT/HCPCS: 99283; 99284

== ENCOUNTER 2025-11-13 11:03 | Emergency (ER) | payer OTHER, SELFPAY ==
[2025-11-13 11:27] VITALS: BP 143/84; PULSE 97; RESP 18; TEMP 36.4; O2SAT 99; BMI 27.8
--- NOTE | 2025-11-13 11:35 | ED.GENADULT ---
HPI - General Adult General Chief complaint: Abdominal Pain Stated complaint: Left Side Pain Time Seen by Provider: 11/13/25 15:05 Source: patient Mode of arrival: ambulatory Limitations: no limitations History of Present Illness ED Provider: HPI narrative: 40-year-old woman with a history of anxiety, on hydroxyzine, presenting with left-sided flank pain, left lower quadrant abdominal pain, she states she was seen here 2 weeks ago for just exactly the same, there was anxiety about health no dysuria no hematuria no fevers or chills reported. No urinary symptoms no vomiting or diarrhea Related Data Home Medications ?Medication ?Instructions ?Recorded ?Confirmed hydroxyzine HCl 50 mg tablet 50 mg PO BID PRN anxiety 04/23/23 05/22/25 propranolol 10 mg tablet 10 mg PO BID 05/22/25 05/22/25 Previous Rx's ?Medication ?Instructions ?Recorded ketorolac 10 mg tablet 10 mg PO TID PRN pain 5 days #15 08/26/23 tabs lorazepam 0.5 mg tablet 0.5 mg PO BEDTIME PRN anxiety #10 10/17/23 tabs wlvhkdgzic-drygfikjlqjtp-lhbyjvrm 1 cap PO Q4-6H PRN pain #14 caps 01/07/24 50 mg-300 mg-40 mg capsule (Fioricet) meclizine 25 mg tablet 25 mg PO DAILY PRN dizziness #7 01/26/24 tabs cyclobenzaprine 10 mg tablet 10 mg PO TID PRN muscle spasm #14 01/25/25 tabs sennosides 8.6 mg tablet (senna) 8.6 mg PO DAILY 14 days #14 tabs 10/10/25 cyclobenzaprine 5 mg tablet 5 mg PO TID PRN muscle pain 3 days 10/19/25 #9 tabs lidocaine 5 % topical patch See Rx Instructions topical 10/19/25 .COMPLEX #15 ea naproxen 500 mg tablet 500 mg PO BID PRN pain (scale 10/19/25 score 4-6) #20 tabs lidocaine 5 % topical patch 1 patch topical DAILY 7 days #15 ea 10/20/25 (Lidoderm) Allergies Allergy/AdvReac Type Severity Reaction Status Date / Time No Known Allergies Allergy Unknown NOT Verified 11/13/25 11:30 APPLICABLE Review of Systems Constitutional: Constitutional: Reports as per [facility] Past Medical History Medical History Lyme disease Heart palpitations Anxiety Cholecystectomy planned delivery delivered Surgical History S/P cholecystectomy Social History Social History Alcohol intake: never Patient Tobacco Use Status: Current everyday Tobacco user Tobacco use type: Smokeless Tobacco Substance Use Type: Marijuana Advance Directives: No Advance Directives Information Provided: Yes Physical Exam ED Exam Exam: ?General: ??looks age appropriate ?PERRLA, EOMI, MMM, Neck: Supple, no LAD ?CV: RRR, no obvious murmurs appreciated ?Resp: ?No wheezing rales rhonchi no stridor moving air well Abd: ?Bowel sounds are present, no tenderness no rebound no rigidity MSK: FROM, strength 5/5 all extremities Skin: Warm, dry, intact, ?Neuro: ?Alert and oriented x3, moving upper and lower extremities symmetrically, no obvious facial asymmetry noted, cranial nerves 2-12 intact Vital Signs: Vital Signs - 24 hr 11/13/25 15:23 11/13/25 17:31 Temperature 98.0 F 98.0 F Pulse Rate 78 78 Respiratory Rate 20 20 Blood Pressure 128/82 128/82 Pulse Oximetry 100 100 Oxygen Delivery Method Room Air Room Air BMI result Body Mass Index 27.8 Course Course Course Narrative: RME: 40 year female history of kidney stones presents to ED for left flank left lower abdominal pain the past couple of days. Labs ordered Medications Administered Discontinued Medications Generic Name Dose Route Start Last Admin Trade Name Freq PRN Reason Stop Dose Admin Sodium Chloride 1,000 mls @ 999 mls/hr 11/13/25 15:45 11/13/25 16:59 Ns IV 11/13/25 16:45 Infused .Q1H1M ROGERS Infusion Procedures Ultrasound ED POC Ultrasound: EMERGENCY ULTRASOUND REPORT?Point of Care Urinary Tract (Renal) Indication: Left-sided flank pain Bladder:? 100 cc Right Kidney:? No cysts, no hydronephrosis Left Kidney: No cysts no hydronephrosis Impression:? Unremarkable no evidence for hydronephrosis or urinary retention Medical Decision Making Medical Decision Making [facility] Narrative: 3:35 PM 11/13/2025 (Dr. Watson Nunes): Differential Diagnosis Differential Diagnoses: The differential diagnosis associated with the presentation includes (Ectopic , ovarian torsion, renal colic, SBO, volvulus, appendicitis) Admission/Observation Consideration of admission/observation: Escalation of care including admission/observation considered Lab Data MDM Lab Attestation statement: I reviewed the patient's lab results. 11/13/25 11:56 11/13/25 16:55 Labs: Lab Results 11/13/25 11/13/25 Range/Units 11:56 16:55 WBC 7.8 (4.8-10.8) X10*3/uL RBC 4.81 (4.20-5.50) X10*6/uL Hgb 14.4 (12.0-16.0) g/dl Hct 44.2 (37.0-47.0) % MCV 91.9 (80.0-98.0) fL MCH 29.9 (27.0-33.0) pg MCHC 32.6 (31.0-35.0) g/dl RDW 15.2 (11.0-16.0) % Plt Count 272 (160-400) X10*3/uL MPV 10.2 (9.4-12.3) fL Immature Gran % (Auto) 0.3 (0.0-0.4) % Neut % (Auto) 65.2 (45-73) % Lymph % (Auto) 25.7 (20-40) % [place] % (Auto) 7.8 (2-11) % Eos % (Auto) 0.6 (0-4) % Baso % (Auto) 0.4 (0-2) % Lymph # (Auto) 2.0 (1.2-4.9) X10*3/uL [place] # (Auto) 0.6 (0.1-1.2) X10*3/uL Eos # (Auto) 0.1 (0.0-0.4) X10*3/uL Baso # (Auto) 0.0 (0.0-0.2) X10*3/uL Abs Immat Gran (auto) 0.02 (0.00-0.03) X10*3/uL Absolute Neuts (auto) 5.1 (2.0-8.3) x10*3/uL Absolute Nucleated RBC 0.000 (0.0-0.012) X10*3/uL Nucleated RBC % (auto) 0.0 (0.0-0.2) /100WBC Sodium 142 (135-145) mmol/L Potassium 6.3 H* D 4.9 D (3.3-5.1) mmol/L Chloride 110 H (96-108) mmol/L Carbon Dioxide 26 (22-29) mmol/L Anion Gap 12 (12-20) BUN 11 (9-16) mg/dL Creatinine 0.77 (0.5-1.4) mg/dL Estim Creat Clear Calc 104.4 Estimated GFR > 60 Random Glucose 94 (60-115) mg/dL Calcium 9.8 (8.4-10.2) mg/dL Total Bilirubin 2.0 H (0.0-1.0) mg/dL AST 18 (5-31) U/L ALT 10 (0-31) U/L Alkaline Phosphatase 52 (39-117) U/L Total Protein 7.2 (6.5-8.0) g/dL Albumin 4.5 (3.5-5.0) g/dL Lipase 15 (8-78) U/L Beta HCG, Quant < 2 mIU/mL Urine Color Yellow Urine Appearance Clear Urine pH 6.5 (5.0-9.0) Ur Specific [place] 1.020 (1.005-1.025) Urine Protein Negative (Neg-Trace) mg/dL Urine Glucose (UA) Negative (Negative) mg/dL Urine Ketones Trace (Negative) mg/dL Urine Blood Negative (Negative) Urine Nitrite Negative (Negative) Ur Leukocyte Esterase Negative (Negative) Influenza Type A (PCR) NEGATIVE (Negative) Influenza Type B (PCR) NEGATIVE (Negative) RSV RNA Qual (PCR) NEGATIVE (Negative) SARS-CoV-2 RNA (RT-PCR) NEGATIVE (Negative) S. pyogenes GrpA ALVINO Negative (Negative) Discharge Plan Discharge Clinical Impression: Flank pain, left side, Acute hyperkalemia Patient Disposition: Home, Self-Care Additional Instructions: Please look up potassium rich foods and make sure that youare substituting some of those foods for non potassium rich foods, your potassium was slightly elevated, received fluids,, please follow up with your PCP, bedside ultrasound without any kidney stones the rest of blood work has been reassuring, as well as urinalysis Prescriptions: No Action bhacwviyhs-pkyynooxmnpkh-atli [Fioricet] 50-300-40 mg capsule 1 cap PO Q4-6H PRN (Reason: pain) Qty: 14 0RF cyclobenzaprine 10 mg tablet 10 mg PO TID PRN (Reason: muscle spasm) Qty: 14 0RF naproxen 500 mg tablet 500 mg PO BID PRN (Reason: pain (scale score 4-6)) Qty: 20 0RF cyclobenzaprine 5 mg tablet 5 mg PO TID PRN (Reason: muscle pain) 3 Days Qty: 9 0RF lidocaine 5 % adhesive patch,medicated See Rx Instructions .ROUTE .COMPLEX Qty: 15 0RF Rx Instructions: leave on most painful area for up to 12 hrs lidocaine [Lidoderm] 5 % adhesive patch,medicated 1 patch topical DAILY 7 Days Qty: 15 0RF Rx Instructions: leave on most painful area for up to 12 hrs ketorolac 10 mg tablet 10 mg PO TID PRN (Reason: pain) 5 Days Qty: 15 0RF lorazepam 0.5 mg tablet 0.5 mg PO BEDTIME PRN (Reason: anxiety) Qty: 10 0RF meclizine 25 mg tablet 25 mg PO DAILY PRN (Reason: dizziness) Qty: 7 0RF sennosides [senna] 8.6 mg tablet 8.6 mg PO DAILY 14 Days Qty: 14 0RF hydroxyzine HCl 50 mg tablet 50 mg PO BID PRN (Reason: anxiety) propranolol 10 mg tablet 10 mg PO BID Interventions: ED Discharge Assessment Last Done: 11/13/25 17:31 Discharge Date/Time: 11/13/25 17:32 Print Language: Malay
[2025-11-13 12:01] LABS: MANUAL DIFF FLAG NO
[2025-11-13 12:02] LABS: Hematocrit 44.2 % (37.0-47.0); Hemoglobin 14.4 g/dl (12.0-16.0); Imm Gran Abs Auto 0.02 X10*3/uL (0.00-0.03); Imm Gran Pct Auto 0.3 % (0.0-0.4); Lymphocytes Absolute Auto 2.0 X10*3/uL (1.2-4.9); Mean Corpuscular HGB Conc 32.6 g/dl (31.0-35.0); Mean Corpuscular Hemoglobin 29.9 pg (27.0-33.0); Mean Corpuscular Volume 91.9 fL (80.0-98.0); NRBC Abs Auto 0.000 X10*3/uL (0.0-0.012); NRBC Pct Auto 0.0 /100WBC (0.0-0.2); Platelet Count 272 X10*3/uL (160-400); Red Blood Count 4.81 X10*6/uL (4.20-5.50); White Blood Count 7.8 X10*3/uL (4.8-10.8)
[2025-11-13 12:03] LABS: Appearance Urine Clear; Glucose Urine UA Negative (Negative); PH 6.5 (5.0-9.0); Specific Gravity - Urine 1.020 (1.005-1.025)
[2025-11-13 12:10] LABS: IDNOW Serial# 58CA691E; Strep A Nucleic Acid Negative (Negative)
[2025-11-13 12:32] LABS: Alanine Aminotransferase 10 U/L (0-31); Albumin Level 4.5 g/dL (3.5-5.0); Alkaline Phosphatase 52 U/L (39-117); Anion Gap 12 (12-20); Aspartate Amino Transferase 18 U/L (5-31); Blood Urea Nitrogen 11 mg/dL (9-16); Calcium 9.8 mg/dL (8.4-10.2); Carbon Dioxide 26 mmol/L (22-29); Chloride 110 mmol/L (96-108); Creatinine Clr Calc Pharmacy 104.4; Estimated Glomerular Filt Rate > 60; Lipase 15 U/L (8-78); Sodium 142 mmol/L (135-145); Total Protein 7.2 g/dL (6.5-8.0)
[2025-11-13 12:34] LABS: Potassium 6.3 mmol/L (3.3-5.1)
[2025-11-13 12:45] LABS: Resp Syncy Virus RNA Qual PCR NEGATIVE (Negative); SARS COV2 PCR INHOUSE NEGATIVE (Negative)
--- NOTE | 2025-11-13 14:03 | PC.NURSE ---
Patient presents to the ED with left sided sharp abdominal pain that radiates to her back. Patient says around a month ago she noted little blood in her stool and was diagnosed with internal hemorrhoids. Denies an bloody or tarry stool recently. Patient endorses mild nausea with no emesis. Denies any urinary symptoms. IV maintained, on tele.
[2025-11-13 15:23] VITALS: BP 128/82; PULSE 78; RESP 20; TEMP 36.7; O2SAT 100
[2025-11-13 17:10] LABS: Potassium 4.9 mmol/L (3.3-5.1)
[2025-11-13 17:31] VITALS: BP 128/82; PULSE 78; RESP 20; TEMP 36.7; O2SAT 100
== END 2025-11-13 17:32 | disposition home or self-care (01) ==
PROVIDERS: Physician Assistant; Emergency Provider Emergency Medicine; PCP Nurse Practitioner Family
DX: R10.A2 Flank pain, left side (principal); E87.5 Hyperkalemia; Z03.818 Encounter for observation for suspected exposure to other biological agents ruled out; F17.200 Nicotine dependence, unspecified, uncomplicated; Z71.6 Tobacco abuse counseling
CPT/HCPCS: 36415; 76775; 80053; 81003; 83690; 84132; 84702; 85025; 87637; 87651; 96360; 99283; 99284

== ENCOUNTER 2025-11-16 15:26 | Emergency (ER) | payer OTHER, SELFPAY ==
--- NOTE | ~2025-11-16 | US_ITS ---
CLINICAL HISTORY: LLE pain Left lower extremity venous duplex ultrasound. Comparison: None Technique: Real time sonographic imaging, including color-flow imaging and spectral analysis, was performed by the investor relations coordinator. Multiple bilingual inside sales representative static images were saved for review. Findings: The deep venous system is fully compressible from common femoral through the proximal leg veins. There is spontaneous and phasic flow, and augmentation. Color Doppler and spectral tracings are unremarkable. Impression: 1. Left lower extremity venous duplex ultrasound negative for DVT This document has been electronically signed by: El Singleton MD on 11/16/2025 17:15:17
[2025-11-16 16:12] VITALS: BP 137/81; PULSE 90; RESP 18; TEMP 36.3; O2SAT 99; BMI 28.6
--- NOTE | 2025-11-16 16:14 | ED_ITS ---
HPI - Extremity Injury (Lower) General Chief Complaint: Extremity Injury, Lower Stated Complaint: leg pain Time Seen by Provider: 11/16/25 19:51 Source: patient Mode of arrival: ambulatory Limitations: no limitations History of Present Illness ED Provider: Rowan Mcknight PA-C HPI Narrative: Patient is a 40 year old female with a history of anxiety and recent elevated potassium presenting to the emergency department today with left leg pain. Patient states that she recently had an elevated potassium and is now having left lower leg pain making her concerned for a return of elevated potassium and a blood clot. Patient denies any other complaints at this time. Patient denies any other complaints at this time. Related Data Home Medications ?Medication ?Instructions ?Recorded ?Confirmed hydroxyzine HCl 50 mg tablet 50 mg PO BID PRN anxiety 04/23/23 05/22/25 propranolol 10 mg tablet 10 mg PO BID 05/22/25 Previous Rx's ?Medication ?Instructions ?Recorded ketorolac 10 mg tablet 10 mg PO TID PRN pain 5 days #15 08/26/23 tabs lorazepam 0.5 mg tablet 0.5 mg PO BEDTIME PRN anxiet y #10 10/17/23 tabs hgxjcjvyfu-jphrarhfydqyk-xjcqzhvf 1 cap PO Q4-6H PRN p ain #14 caps 01/07/24 50 mg-300 mg-40 mg capsule (Fioricet) meclizine 25 mg tablet 25 mg PO DAILY PRN dizziness #7 01/26/24 tabs cyclobenzaprine 10 mg tablet 10 mg PO TID PRN muscle s pasm #14 01/25/25 tabs sennosides 8.6 mg tablet (senna) 8.6 mg PO DAILY 14 da ys #14 tabs 10/10/25 cyclobenzaprine 5 mg tablet 5 mg PO TID PRN muscle jad n 3 days 10/19/25 #9 tabs lidocaine 5 % topical patch See Rx Instructions topica l 10/19/25 .COMPLEX #15 ea naproxen 500 mg tablet 500 mg PO BID PRN pain (scal e 10/19/25 score 4-6) #20 tabs lidocaine 5 % topical patch 1 patch topical DAILY 7 da ys #15 ea 10/20/25 (Lidoderm) Allergies Allergy/AdvReac Type Severity Reaction Status Date / Time No Known Allergies Allergy Unknown NOT Verified 11/16/25 16:14 APPLICABLE Review of Systems 2 Constitutional: Constitutional: Reports as per HPI Eyes: Eyes: Reports as per HPI ENT: Reports as per HPI Cardiovascular: Cardiovascular: Reports as per HPI Respiratory: Respiratory: Reports as per HPI Gastrointestinal: Gastrointestinal: Reports as per HPI Genitourinary: Genitourinary: Reports as per HPI Musculoskeletal: Musculoskeletal: Reports as per HPI Integumentary/Breasts: Skin/Breast: Reports as per HPI Neurologic: Reports as per HPI Psychiatric: Psychiatric: Reports as per HPI Endocrine: Endocrine: Reports as per HPI Hematologic/Lymphatic: Hematologic/Lymphatic: Reports as per HPI Allergic/Immunologic: Allergic/Immunologic: Reports as per HPI [facility] Past Medical History Attestation statement: The following information was validated with the patient. Source: old records reviewed and nursing notes reviewed Medical History Lyme disease Heart palpitations Anxiety Cholecystectomy planned delivery delivered Surgical History S/P cholecystectomy Social History Social History Alcohol intake: never Patient Tobacco Use Status: Current everyday Tobacco user Tobacco use type: Smokeless Tobacco Substance Use Type: Marijuana Advance Directives: No Advance Directives Information Provided: Yes Do you have a plan to hurt others: No Plan Physical Exam 2 Vital Signs: Vital Signs: Last Vital Signs Temp 97.4 F 11/16/25 20:01 Pulse 90 11/16/25 20:01 Resp 18 11/16/25 20:01 BP 137/81 11/16/25 20:01 Pulse Ox 99 11/16/25 20:01 O2 Del Method Room Air 11/16/25 20:01 BMI result Body Mass Index 28.6 Const: General: cooperative, no acute distress, alert and awake Nutritional Appearance: well nourished Orientation/consciousness: patient oriented x3 HEENT: Head: Yes normal to inspection and Yes atraumatic Ears: hearing grossly normal bilaterally and external ears normal General nose exam: Normal external nose present, no nasal discharge noted and no epistaxis Face and sinus: Yes normal facial exam, No abrasion and No laceration Mouth: Normal oral and palatal mucosa present, no drooling and no muffled voice Eyes: General: appearance normal, both eyes and all related structures P eriorbital: periorbital findings normal Eyelids: Yes eyelids normal C onjunctivae: conjunctivae normal Pupils: Equal, round and reactive pupils present EOM: EOMs intact bilaterally Neck: Neck: Yes normal visual inspection and Yes full ROM Resp: Effort & Inspection: normal respiratory effort and able to speak in complete sentences Neuro: General: patient oriented x3, moves all extremities and CN's II-XI intact bilaterally Cranial nerves: Yes Equal, round and reactive pupils present Cognition (Neuro): normal cognition Extrem: General: Yes full ROM Psych: Appearance: grossly normal Mental Status: mental status grossly normal Affect: normal affect Attitude: cooperative Thought process: N ormal thought process present Thought content: Normal thought content present Insight: Good insight present (Psych) Course Course Course Narrative: This is a Rapid Medical Exam performed in triage by Mikaela Andujar PA-C. Full HPI, ROS and PE to be performed by primary ED provider. 40-year-old female with a past medical history anxiety, presenting to the ED c/o left lower extremity/calf pain. Patient was recently seen and treated in our ED on 11/13/2025 noted to be hyperkalemic. PE: NAD, nontoxic appearing, ambulating with steady gait. LLE w/mild calf ttp. NV intact Plan: Labs, ultrasound Medical Decision Making Medical Decision Making MDM Narrative: Patient is a 40 year old female with a history of anxiety and recent elevated potassium presenting to the emergency department today with left leg pain. Patient's physical exam was as noted in the physical exam portion of this note. Patient's blood work showed a mild hyperkalemia of 5.3, elevated total bili of 2.5, and direct bili of 0.7. Patient's bilirubin levels appear to be elevated continually. Patient's left lower leg US showed no acute process. I explained my physical exam findings as well as all test results to the patient. I answered all questions asked by the patient. I stressed the importance of the patient taking her medication as directed (either prescribed or as the over the counter packaging recommends). I stressed the importance of the patient following up with her primary care provider. I stressed the importance of the patient returning to the emergency department immediately if her symptoms were to worsen or if she were to develop any dizziness, shortness of breath, difficulty breathing, chest pain, blurry vision, loss of vision, nausea, vomiting, abdominal pain, fever, chills, back pain, or any other complaints. Patient verbalized agreement and understanding with this treatment plan and discharge. Differential Diagnosis Differential Diagnoses: The differential diagnosis associated with the presentation includes Hyperkalemia Left lower leg pain DVT Admission/Observation Consideration of admission/observation: Escalation of care including admission/observation considered Patient would have been admitted to the hospital had her work up had any findings where hospital admission was appropriate and her clinical presentation warranted hospital admission. Lab Data [facility] Lab Attestation statement: I reviewed the patient's lab results. My interpretation of these results are in the [facility] Rationale portion of this note. 11/16/25 17:19 11/16/25 17:19 Labs: Lab Results 11/16/25 Range/Units 17:19 WBC 10.6 (4.8-10.8) X10*3/uL RBC 5.06 (4.20-5.50) X10*6/uL Hgb 15.2 (12.0-16.0) g/dl Hct 46.7 (37.0-47.0) % MCV 92.3 (80.0-98.0) fL MCH 30.0 (27.0-33.0) pg MCHC 32.5 (31.0-35.0) g/dl RDW 15.4 (11.0-16.0) % Plt Count 261 (160-400) X10*3/uL MPV 10.1 (9.4-12.3) fL Immature Gran % (Auto) 0.4 (0.0-0.4) % Neut % (Auto) 69.0 (45-73) % Lymph % (Auto) 22.0 (20-40) % [place] % (Auto) 7.3 (2-11) % Eos % (Auto) 0.9 (0-4) % Baso % (Auto) 0.4 (0-2) % Lymph # (Auto) 2.3 (1.2-4.9) X10*3/uL [place] # (Auto) 0.8 (0.1-1.2) X10*3/uL Eos # (Auto) 0.1 (0.0-0.4) X10*3/uL Baso # (Auto) 0.0 (0.0-0.2) X10*3/uL Abs Immat Gran (auto) 0.04 H (0.00-0.03) X10*3/uL Absolute Neuts (auto) 7.3 (2.0-8.3) x10*3/uL Absolute Nucleated RBC 0.000 (0.0-0.012) X10*3/uL Nucleated RBC % (auto) 0.0 (0.0-0.2) /100WBC Sodium 141 (135-145) mmol/L Potassium 5.3 H (3.3-5.1) mmol/L Chloride 110 H (96-108) mmol/L Carbon Dioxide 21 L (22-29) mmol/L Anion Gap 15 (12-20) BUN 10 (9-16) mg/dL Creatinine 0.69 (0.5-1.4) mg/dL Estim Creat Clear Calc 114.0 Estimated GFR > 60 Random Glucose 99 (60-115) mg/dL Calcium 9.9 (8.4-10.2) mg/dL Magnesium 1.7 (1.6-2.6) mg/dL Total Bilirubin 2.5 H (0.0-1.0) mg/dL Direct Bilirubin 0.7 H (0.0-0.5) mg/dL AST 18 (5-31) U/L ALT 9 (0-31) U/L Alkaline Phosphatase 53 (39-117) U/L Total Protein 7.4 (6.5-8.0) g/dL Albumin 4.5 (3.5-5.0) g/dL Independent Interpretation I performed an independent interpretation of an: Ultrasound Interpretation: My interpretation is in agreement with the radiologist's impression of this imaging study as written below. CLINICAL HISTORY: LLE pain Left lower extremity venous duplex ultrasound. Comparison: None Technique: Real time sonographic imaging, including color-flow imaging and spectral analysis, was performed by the rfid manager. Multiple cash posting representative static images were saved for review. Findings: The deep venous system is fully compressible from common femoral through the proximal leg veins. There is spontaneous and phasic flow, and augmentation. Color Doppler and spectral tracings are unremarkable. Impression: 1. Left lower extremity venous duplex ultrasound negative for DVT This document has been electronically signed by: El Singleton MD on 11/16/2025 17:15:17 Dictated By: El Singleton MD Signed By: Electronically signed by El Singleton MD 11/16/25 9833 Radiology Impression Discussion of test interpretation with radiology: I have reviewed the radiologist's reading. Discharge Plan Discharge Clinical Impression: Leg pain, left, Acute hyperkalemia Patient Disposition: Home, Self-Care Instructions: Hyperkalemia (ED), Leg Pain (ED) Additional Instructions: You do not have a DVT. Drink plenty of fluids to keep your potassium the appropriate level. IF you are prescribed home medications and/or you are taking over the counter medications at home - it is very important you continue to do so as prescribed / directed unless told otherwise by a healthcare provider. Follow up with your primary care provider. Do your best to stay well hydrated and rest. Return to the emergency department immediately if your symptoms worsen or if you develop any numbness, tingling, dizziness, shortness of breath, difficulty breathing, chest pain, blurry vision, loss of vision, nausea, vomiting, abdominal pain, fever, chills, back pain, or any other complaints. Please see the information below about our Patient Portal. If you are not yet enrolled in the [facility] Patient Portal, you will receive an enrollment email invitation following your visit to any [facility] [place] care setting. You may also self-enroll in the Patient Portal by visiting our website: [email or web address] The following information is required to access the Patient Portal: - Your [facility] Medical Record Number - Your personal home email address (must match what is in your electronic medical record, Registration staff can assist with this) - Name - Date of Capabilities of the Patient Portal: - Message some providers - View upcoming appointments - Access your health summary, medical history, and visit history - View current conditions and allergies - View procedure and lab results - View your medications, including guidelines, side effects, and precautions - Complete pre-appointment questionnaires requested by your provider - Ready summary reports of your office visits and procedures To access the Patient Portal Mobile Mel[employer], follow these directions: - Search [employer] in the Melo Store or Google Play Store - Download the Melo - Search for [facility] - Enter your login/password Prescriptions: No Action ipukqowpil-ssemztdrnooye-bccs [Fioricet] 50-300-40 mg capsule 1 cap PO Q4-6H PRN (Reason: pain) Qty: 14 0RF cyclobenzaprine 10 mg tablet 10 mg PO TID PRN (Reason: muscle spasm) Qty: 14 0RF naproxen 500 mg tablet 500 mg PO BID PRN (Reason: pain (scale score 4-6)) Qty: 20 0RF cyclobenzaprine 5 mg tablet 5 mg PO TID PRN (Reason: muscle pain) 3 Days Qty: 9 0RF lidocaine 5 % adhesive patch,medicated See Rx Instructions .ROUTE .COMPLEX Qty: 15 0RF Rx Instructions: leave on most painful area for up to 12 hrs lidocaine [Lidoderm] 5 % adhesive patch,medicated 1 patch topical DAILY 7 Days Qty: 15 0RF Rx Instructions: leave on most painful area for up to 12 hrs ketorolac 10 mg tablet 10 mg PO TID PRN (Reason: pain) 5 Days Qty: 15 0RF lorazepam 0.5 mg tablet 0.5 mg PO BEDTIME PRN (Reason: anxiety) Qty: 10 0RF meclizine 25 mg tablet 25 mg PO DAILY PRN (Reason: dizziness) Qty: 7 0RF sennosides [senna] 8.6 mg tablet 8.6 mg PO DAILY 14 Days Qty: 14 0RF hydroxyzine HCl 50 mg tablet 50 mg PO BID PRN (Reason: anxiety) propranolol 10 mg tablet 10 mg PO BID Referrals: Simi Noland NP [Primary Care Provider, Internal Medicine] Interventions: ED Discharge Assessment Last Done: 11/16/25 20:01 Discharge Date/Time: 11/16/25 20:10 Print Language: Yi
[2025-11-16 17:23] LABS: MANUAL DIFF FLAG NO
[2025-11-16 17:25] LABS: Hematocrit 46.7 % (37.0-47.0); Hemoglobin 15.2 g/dl (12.0-16.0); Imm Gran Abs Auto 0.04 X10*3/uL (0.00-0.03); Imm Gran Pct Auto 0.4 % (0.0-0.4); Lymphocytes Absolute Auto 2.3 X10*3/uL (1.2-4.9); Mean Corpuscular HGB Conc 32.5 g/dl (31.0-35.0); Mean Corpuscular Hemoglobin 30.0 pg (27.0-33.0); Mean Corpuscular Volume 92.3 fL (80.0-98.0); NRBC Abs Auto 0.000 X10*3/uL (0.0-0.012); NRBC Pct Auto 0.0 /100WBC (0.0-0.2); Platelet Count 261 X10*3/uL (160-400); Red Blood Count 5.06 X10*6/uL (4.20-5.50); White Blood Count 10.6 X10*3/uL (4.8-10.8)
[2025-11-16 17:54] LABS: Alanine Aminotransferase 9 U/L (0-31); Albumin Level 4.5 g/dL (3.5-5.0); Alkaline Phosphatase 53 U/L (39-117); Anion Gap 15 (12-20); Aspartate Amino Transferase 18 U/L (5-31); Blood Urea Nitrogen 10 mg/dL (9-16); Calcium 9.9 mg/dL (8.4-10.2); Carbon Dioxide 21 mmol/L (22-29); Chloride 110 mmol/L (96-108); Creatinine Clr Calc Pharmacy 114.0; Estimated Glomerular Filt Rate > 60; Magnesium 1.7 mg/dL (1.6-2.6); Potassium 5.3 mmol/L (3.3-5.1); Sodium 141 mmol/L (135-145); Total Protein 7.4 g/dL (6.5-8.0)
[2025-11-16 20:01] VITALS: BP 137/81; PULSE 90; RESP 18; TEMP 36.3; O2SAT 99
== END 2025-11-16 20:10 | disposition home or self-care (01) ==
PROVIDERS: Physician Assistant; Emergency Provider Student in an Organized Health Care Education/Training Program; PCP Nurse Practitioner Family
DX: M79.605 Pain in left leg (principal); E87.5 Hyperkalemia; F41.9 Anxiety disorder, unspecified; F17.200 Nicotine dependence, unspecified, uncomplicated; Z71.6 Tobacco abuse counseling
CPT/HCPCS: 36415; 80048; 80076; 83735; 85025; 93971; 99282; 99284

== ENCOUNTER → 2025-11-16 16:13 | Outpatient (BNV) | payer OTHER, SELFPAY | PROVIDERS: PCP Nurse Practitioner Family; Visit Provider Radiology Diagnostic Radiology | DX: M79.662 Pain in left lower leg (principal) | CPT/HCPCS: 93971 ==

== ENCOUNTER 2025-11-21 10:11 | Outpatient (AMB) | payer OTHER, SELFPAY ==
--- NOTE | 2025-11-21 10:14 | MHC.OFFVIS ---
Vital Signs 11/21/25 10:20 Height 5 ft 5 in Weight 171 lb BMI 28.5 BP 134/84 Blood Pressure Location Rt brachial Position Sitting Pulse 106 H Pulse Source Pulse Oximeter Pulse Oximetry (%) 99 Oxygen Delivery Method Room Air Intake Visit Reasons: rectal bleeding, abdominal pain (seen in er 11/05) Intake Note: Est pt for mgmt of chronic abd pain. ED FUV. DEIDRE 2023. CC: C/O LLQ pain, constipation, and intermittent rectal bleeding. Pt states rectal bleeding has since stopped and she has not experienced any within the last week. Consumer Services Advisor Required: No Accompanied by: Self / Same As Patient Allergies No Known Allergies Allergy (Unknown, Verified 11/21/25 10:14) NOT APPLICABLE HPI HPI rectal bleeding, abdominal pain (seen in er 11/05): Details: LAST VISIT Dysphagia GERD (gastroesophageal reflux disease) Plan Continue omeprazole daily. Encouraged patient to go and get her blood work done today. Will send patient for upper endoscopy to rule out gastritis, esophagitis, duodenitis, gastric or Pepcid ulcer, Becerra's, achalasia, Schatzki ring. Will review barium swallow report when patient gets it done. Encouraged to get it done. I will see her after the procedure, sooner on as needed basis. Patient is agreeable to this plan and verbalizes understanding of instructions. She was given the opportunity to ask questions and all questions answered. UPPER ENDOSCOPY Findings: Larynx:normal Esophagus: GE junction at 37 cm, diaphragm hiatus at 37 cm, bx taken from GEJ, distal and proximal esophagus, balloon dilation at LES and UES to 19 mm, no tears seen Stomach: streaky gastritis and atrophy . Biopsies were obtained. Grade 2 flap valve on retroflexed examination of the cardia. Duodenum: Normal bulb and descending duodenum, Intervention: Biopsies as noted above, balloon dilation Impression/Findings: gastritis PLAN: await bx, if h pylori pos treat GERD precautions PATHOLOGY RESULTS Addendum Addendum #1 No metaplastic changes are seen, supported by AB/PAS stains (B); no Helicobacter organisms are seen, supported by H. pylori immunostain (A). No change is made to the diagnoses. Electronically Signed By: Levon Mcgill MD 07/19/24 0736 Diagnosis A. Stomach, biopsy: Gastric antral/body mucosa with minimal chronic inactive gastritis; negative for intestinal metaplasia and dysplasia. B. Esophagogastric junction, biopsy: Squamocolumnar mucosa with mild chronic active inflammation; no intestinal metaplasia identified on initial levels; negative for dysplasia. C. Esophagus, distal, biopsy: Squamous mucosa with no specific change; no columnar mucosa present. D. Esophagus, proximal, biopsy: Squamous mucosa with no specific change; no columnar mucosa present. Comment: (A): Immunostain for H. pylori pending; addendum to follow. (B): Additional level with AB/PAS stain pending; addendum to follow. TODAY'S VISIT Patient is here today for requested visit. Patient was seen in the ER back in September for 1 episode of rectal bleed. Patient reports that she was very constipated and straining and saw blood in the toilet after a bowel movement. Patient has not had any more episodes since. Patient admits that she continues to be constipated. Reports occasional left lower quadrant pain. Denies nausea or vomiting. Patient no longer is experiencing acid reflux. Patient is not taking any PPI. Patient was given script for senna when in the ED for constipation and reports that it was working. Patient denies melena, hematochezia, unintentional weight loss or ribbon like stools. ? COUNTS INCLUDE 234 BEDS AT THE [facility] Medical History Lyme disease Heart palpitations Anxiety Cholecystectomy planned delivery delivered Surgical History S/P cholecystectomy Social History Alcohol intake: never Patient Tobacco Use Status: Current everyday Tobacco user Tobacco use type: Smokeless Tobacco Substance Use Type: Marijuana Review of Systems Const Denies weight gain and Denies weight loss ENT Reports no additional complaints, Denies dysphagia and Denies odynophagia Card Reports no additional complaints Resp Reports no additional complaints GI Reports abdominal pain (LLQ), Denies belching, Denies melena, Reports bloating, Denies change in bowel habits, Reports constipation, Denies dysphagia, Denies excessive flatus, Denies dyspepsia, Denies heartburn, Denies diarrhea, Denies loose stools, Denies nausea, Denies odynophagia and Denies vomiting Reports no additional complaints Musc Reports no additional complaints Neuro Reports no additional complaints Psych Reports no additional complaints Endo Reports no additional complaints Physical Exam Const General: healthy appearing, no acute distress and well developed Nutritional Appearance: well nourished Orientation/consciousness: patient oriented x3 Resp Effort & Inspection: normal respiratory effort, able to speak in complete sentences, no tracheal deviation and symmetric chest movement Auscultation: clear to auscultation bilaterally Cardio Rate: regular rate GI Inspection: Yes normal to inspection and No distended Palpation (GI): Soft to palpation, not firm, nontender and No hepatosplenomegaly present Auscultation: normal bowel sounds General: Yes no CVA tenderness Back/Spine/Pelvis Back: no CVA tenderness Skin General skin exam: elasticity normal, turgor normal and dry skin Neuro General: patient oriented x3 Psych Appearance: grossly normal Mental Status: mental status grossly normal Assessment & Plan Assessment & Plan (1) Left sided abdominal pain: Code(s): R10.9 - Unspecified abdominal pain Category: Medical (2) Constipation: Code(s): K59.00 - Constipation, unspecified Qualifiers: Constipation type: slow transit constipation Qualified Code(s): K59.01 - Slow transit constipation (3) Postprandial abdominal bloating: Code(s): R14.0 - Abdominal distension (gaseous) Plan Patient was encouraged to increase water intake and activity to promote bowel motility. Patient will take senna daily. Patient reports abdominal bloating. Discussed with her low FODMAP diet. List of food recommended as well as list of food to avoid given to patient. Patient will follow-up in 4 months. She was encouraged to call us if she will have any GI concerning symptoms. Patient is agreeable to this plan and verbalizes understanding of instructions. She was given the opportunity to ask questions and all questions answered. Thank you for allowing me to participate in her care Medications: New hydrocortisone 2.5% (Proctosol HC) 1 appl [place] BID-QID PRN 30 grams 2RF hemorrhoids K64.9 - Unspecified hemorrhoids sennosides (Natural Senna Laxative) 17.2 mg (2 x 8.6 mg) PO BEDTIME 60 tabs 3RF constipation K59.00 - Constipation, unspecified Coding Level of Care Code Est Pt Level 4 (02756) Diagnoses Left sided abdominal pain R10.9 Slow transit constipation K59.01 Constipation type: slow transit constipation Postprandial abdominal bloating R14.0 Time Spent (min) 30 Comment 20 minutes spent with patient and additional 10 minutes spent reviewing her records
[2025-11-21 10:20] VITALS: BP 134/84; PULSE 106; O2SAT 99; BMI 28.5
== END 2025-11-21 10:34 | disposition home or self-care (01) ==
LOC: HO.HGI 10:11
PROVIDERS: PCP Nurse Practitioner Family; Visit Provider Nurse Practitioner Family
DX: R10.9 Unspecified abdominal pain (principal); K59.01 Slow transit constipation; R14.0 Abdominal distension (gaseous)
CPT/HCPCS: 99214

== ENCOUNTER → 2025-11-21 10:11 | Outpatient (BNVA) | payer OTHER, SELFPAY | PROVIDERS: PCP Nurse Practitioner Family; Visit Provider Nurse Practitioner Family | DX: K59.01 Slow transit constipation (principal); R10.32 Left lower quadrant pain; R14.0 Abdominal distension (gaseous); K64.9 Unspecified hemorrhoids; G89.29 Other chronic pain | CPT/HCPCS: 99212 ==